=== PATIENT | female | born 1950 | race Two or more races ===

== ENCOUNTER 2024-12-28 12:46 | Observation (INO) | payer OTHER, MEDICAID, MEDICARE, SELFPAY ==
[2024-12-28] VITALS (7 sets, daily range): BP systolic 134–178; BP diastolic 59–79; PULSE 60–74; RESP 15–19; TEMP 35.2–36.7; O2SAT 97–100; BMI 21.5
--- NOTE | 2024-12-28 13:17 | XR_ITS ---
Examination: AP chest single view Technique one AP portable upright chest single view Date and time: December 28, 2024, 1323 hrs., Comparison January 31, 2022. Indications: Chest pain and weakness beginning 2 days ago. Findings: Mild enlargement cardiac contour. Mild to moderate vascular congestion. No lobar pneumonia or praveena pulmonary edema. Prominent osteopenia Impression: Mild enlargement cardiac contour. Mild to moderate vascular congestion.
--- NOTE | 2024-12-28 13:17 | EKG_ITS ---
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
--- NOTE | 2024-12-28 13:19 | PD.EDWEAK ---
ED Weakness RME/HPI General Chief complaint: Altered Mental Status Stated complaint: AMS, Low Blood Sugar Time Seen by Provider: 12/28/24 13:17 Arrival date/time: 12/28/24 12:46 Limitations: no limitations RME / HPI RME / HPI Narrative: DR. WOODS MAIN ED EVALUATION: 74-year-old female with past medical history of diabetes mellitus, on insulin, and left eye blindness presents to the Emergency Department [facility] with generalized weakness and altered. Per EMS, the patient woke up at her baseline but subsequently felt weak. Her blood glucose was found to be in the 30s. She was given 50 cc of D10 en route, after which she returned to her baseline mental status. The last time she took insulin was last night. No other complaints reported at this time. At 1643 hours, I spoke with the family, the patient?s daughter, and obtained additional information. The patient has a history of diabetes mellitus and took insulin last night without eating beforehand. She then went to sleep. This morning, she took her antihypertensive medication, lisinopril, also before eating any food. Later, when her checked on her, he found her unresponsive in bed. Related Data Home Medications ?Medication ?Instructions ?Recorded ?Confirmed insulin glargine 100 unit/mL 16 unit subcut QPM 01/30/22 01/31/22 subcutaneous cartridge metoprolol succinate 50 mg capsule 50 mg PO QDAY 01/30/22 01/31/22 sprinkle, ext. release 24 hr simvastatin 20 mg tablet 20 mg PO QPM 01/30/22 01/31/22 glipizide 5 mg tablet 5 mg PO QDAY 12/28/24 12/28/24 Previous Rx's ?Medication ?Instructions ?Recorded docusate sodium 100 mg capsule 100 mg PO BID #40 caps 02/04/22 (Colace) hydrocodone 5 mg-acetaminophen 325 1 tab PO Q8H PRN pain (scale score 02/04/22 mg tablet 7-10) #15 tabs ibuprofen 600 mg tablet 600 mg PO Q8H PRN pain (scale 02/04/22 score 4-6) #15 tabs Allergies Allergy/AdvReac Type Severity Reaction Status Date / Time No Known Allergies Allergy Verified 12/28/24 13:05 Review of Systems Review of Systems Systems Reviewed: All systems reviewed, normal except as documented Past Medical History Past Medical History NEUROLOGIC: Positive Neurological Disorders CARDIAC: Positive Cardiac Disorders, Hypercholesterolemia and Hypertension GASTROINTESTINAL: Positive Gall Bladder Disease GENITOURINARY: Positive Genitourinary Disorders and Renal Disease MUSCULOSKELETAL: Positive Musculoskeletal Disorders and Arthritis ENT: Positive Blind (L eye) ENDOCRINE: Positive Diabetes Mellitus Type 2 Surgical History SURGICAL: Positive Eye Surgery (L eye) Social History SMOKING STATUS: Never smoker SUBSTANCE USE: does not use ALCOHOL: Never ED Exam General Limitations: Present no limitations General appearance: Present alert and in no apparent distress Head Head exam: Present atraumatic, normocephalic and normal inspection Eye Eye exam: Present normal appearance, PERRL and EOMI ENT ENT exam: Present normal exam, normal oropharynx and mucous membranes moist Neck Neck exam: Present normal inspection, full ROM and trachea midline Chest Chest inspection: Present normal inspection and symmetric chest wall rise Respiratory Respiratory exam: Present normal lung sounds bilaterally Cardiovascular Cardiovascular exam: Present regular rate, normal rhythm and normal heart sounds Abdominal Exam Abdominal exam: Present soft and normal bowel sounds Extremities Exam Extremities exam: Present normal inspection and full ROM Back Exam Back exam: Present normal inspection and full ROM Neurological Exam Neurological exam: Present alert, oriented X3 and CN II-XII intact Psychiatric Psychiatric exam: Present normal affect and normal mood Skin Skin exam: Present warm, dry, intact and normal color Course Quality Measures none Orders Category Date Time Status Bedside COVID-19 Antigen Test NOW Care 12/28/24 13:17 Active EKG (ED ONLY) *Do not use* NOW Care 12/28/24 13:18 Completed Glucose [Bedside Blood Glucose] Q1HR Care 12/28/24 13:18 Active CXR [XR chest 1V] Stat Exams 12/28/24 13:17 Completed EKG (ED Only) Stat Exams 12/28/24 13:17 Draft CBC Stat Lab 12/28/24 14:28 Completed CMP [Comprehensive Metabolic Panel] Stat Lab 12/28/24 14:28 Completed INR [Prothrombin Time with INR] Stat Lab 12/28/24 14:28 Completed Influenza A & B Rapid Panel Stat Lab 12/28/24 15:55 Completed Troponin I Stat Lab 12/28/24 14:28 Completed UA, C/S IF [Urinalysis, C/S if Indicated] Stat Lab 12/28/24 15:40 Completed Urine Culture Stat Lab 12/28/24 15:40 Received cefTRIAXone/D5w 1gm IV premix [Rocephin/D5w 1gm IV Med 12/28/24 18:56 Discontinued premix] 1 gm in 50 ml IV Q12HR cefTRIAXone/D5w 1gm IV premix [Rocephin/D5w 1gm IV Med 12/28/24 18:56 Active premix] 1 gm in 50 ml IV STAT Vital Signs Vital signs: Vital Signs Temperature 95.3 F L 12/28/24 13:00 Pulse Rate 69 12/28/24 13:00 Respiratory Rate 18 12/28/24 13:00 Blood Pressure 160/59 H 12/28/24 13:00 Pulse Oximetry (%) 100 12/28/24 13:00 Oxygen Delivery Method Room Air 12/28/24 13:00 Weakness MDM Narrative MDM Narrative:: Patient is a 72-year-old female with medical history notable for diabetes is in the emergency department with concerns for acute confusion and hypoglycemia. Vital signs and exam as listed. Concern for metabolic derangement, antigenic exposure, acute infection among others. Patient arrived GCS 15, not in distress no focal deficits that were new. Patient takes insulin, states that she took it last night did not eat and then took her medications this morning. Ordered labs EKG chest x-ray. Will observe the patient and monitor her glucose in the emergency department. 1p: Patient GCS 15, not in distress, feels well no complaints 3p: Patient continues to feel well without any symptoms. Labs with evidence of normocytic anemia, hemoglobin 11.3, patient is near her baseline. No significant electrolyte abnormality. Patient GFR is 44. No transaminitis. Troponin not elevated. Urinalysis positive for nitrites leuk esterase +3 WBCs 3 squames rare bacteria concern. A tract infection will provide antibiotics. Chest x-ray with moderate vascular congestion. Patient without any lower extremity edema, breathing room air not dyspneic. EKG performed today 1608 sinus rhythm, normal intervals, nonspecific T wave changes, not a cardiac alert. Patient's glucose were monitored in the emergency department, at approximately 5 PM her glucose was in the 70s again. Patient was given food. Given patient with downtrending glucose despite eating concerned that patient sulfonylurea will continue to drop patient's blood glucose to critical levels. 6:36p consult hospital team, stated they will call back after signout. 7:07 I called nighttime hospitalist Dr. Tanner, discussed case currently excepted patient for admission I, Yolande Galvez, cecile scribing for and in the presence of Dr. Woods. Patient data External records reviewed:: [facility] previous records and EMS form Clinical information provided by:: patient and EMS Social determinants that could affect healthcare access:: none Patient has the following chronic illnesses:: Past medical history of diabetes mellitus, on insulin, and left eye blindness. How is presenting disease/condition affected by chronic disease/condition?: exacerbated by Evaluation data The following diagnostics were reviewed and interpreted by me:: lab results, radiology exam(s) and EKG tracing(s) (My interpretation: EKG performed at 1530 hours, sinus rhythm, rate 57, normal intervals, non specific T wave changes, no cardiac alert) Lab and/or radiology exams considered but not ordered:: none Interpretation Summary: See MDM narrative above. RADIOLOGY Procedure(s): XR chest 1V Accession Number(s): [id number] cc: Jamie Lares PA-C; Desmond Velázquez MD; Yany Woods MD~ Examination: AP chest single view Technique one AP portable upright chest single view Date and time: December 28, 2024, 1323 hrs., Comparison January 31, 2022. Indications: Chest pain and weakness beginning 2 days ago. Findings: Mild enlargement cardiac contour. Mild to moderate vascular congestion. No lobar pneumonia or praveena pulmonary edema. Prominent osteopenia Impression: Mild enlargement cardiac contour. Mild to moderate vascular congestion. Dictated By: Desmond Velázquez MD Medications / Prescriptions Medications or Prescriptions considered but not ordered:: none Medication administrations:: Medication Administration History Ceftriaxone Sodium/Dextrose (Rocephin/D5w 1gm Iv Premix) 1 gm in 50 mls @ 100 mls/hr IV STAT STA Stop: 12/28/24 19:25 Discontinued Medications Ceftriaxone Sodium/Dextrose (Rocephin/D5w 1gm Iv Premix) 1 gm in 50 mls @ 100 mls/hr IV Q12HR ELVIA Stop: 01/04/25 18:55 see above if any Consultations Consultation(s) initiated? (list below): Yes Consultation #1 (Physician, Specialty, Details): See MDM Diagnosis Weakness Differential Diagnosis: other (Insulin-induced hypoglycemia, medication mismanagement, and metabolic encephalopathy.) Most likely diagnosis given after review of the tests above:: Urinary tract infection, hypoglycemia Admission Indicated Admission indicated?: indicated Admission Request Was there a request for admission?: Yes Admission Attestation Admission request attestation: Discussed case with Hospitalist service regarding admission. Discussed patients ED course, exam findings, labs, and radiology results. The Hospitalist [agrees] to accept the patient for admission. Disposition Plan Disposition Plan: Admit Critical Care Time Critical Care Time Critical Care Time: Yes Total Critical Care Time (min.): 45 Attestation: Due to a high probability of clinically significant, life threatening deterioration, the patient required my highest level of preparedness to intervene emergently and I personally spent this critical care time directly and personally managing the patient. This critical care time included obtaining a history; examining the patient; pulse oximetry; ordering and review of studies; arranging urgent treatment with development of a management plan; evaluation of patient's response to treatment; frequent reassessment; and, discussions with other providers. This critical care time was performed to assess and manage the high probability of imminent, life-threatening deterioration that could result in multi-organ failure. It was exclusive of separately billable procedures and treating other patients and teaching time. Discharge Plan Prescriptions/Referrals Prescriptions/Med Rec: No Action glipizide 5 mg tablet 5 mg PO QDAY Patient Comments: TAKE 1 TABLET BY MOUTH ONCE DAILY 30 MINUTES BEFORE BREAKFAST simvastatin 20 mg Tablet 20 mg PO QPM metoprolol succinate 50 mg Capsule,Sprinkle,Er 24hr 50 mg PO QDAY insulin glargine 100 unit/mL Cartridge 16 unit SUBCUT QPM hydrocodone-acetaminophen 5-325 mg tablet 1 tab PO Q8H MDD 3 PRN (Reason: pain (scale score 7-10)) Qty: 15 0RF docusate sodium [Colace] 100 mg capsule 100 mg PO BID Qty: 40 0RF ibuprofen 600 mg tablet 600 mg PO Q8H PRN (Reason: pain (scale score 4-6)) Qty: 15 0RF Referrals: Jamie Lares PA-C [Primary Care Provider] - In 1 week Problem List Clinical Impression: Hypoglycemia, Urinary tract infection Patient/Caregiver Discharge Instructions Print Language: German
[2024-12-28 14:35] LABS: Basophils # (Auto) 0.0 Thou/mm3 (0.0-0.2); Basophils % (Auto) 0 % (0-2.5); Eosinophils # (Auto) 0.1 Thou/mm3 (0.0-0.5); Eosinophils % (Auto) 1 % (0-10); Hematocrit 34.8 % (36.0-46.0); Hemoglobin 11.3 g/dL (12.0-16.0); Immature Granulocytes Auto 0.02 Thou/mm3 (0.00-0.00); Lymphocytes # (Auto) 1.1 Thou/mm3 (1.0-4.8); Lymphocytes % (Auto) 12 % (10-50); Mean Corpuscular HGB Conc 32.5 g/dl (31.0-37.0); Mean Corpuscular Hemoglobin 30.5 pg (25.0-35.0); Mean Corpuscular Volume 94 fL (80-100); Monocytes # (Auto) 0.4 Thou/mm3 (0.0-0.8); Monocytes % (Auto) 4 % (0-12); Neutrophils # (Auto) 7.8 Thou/mm3 (1.8-7.7); Neutrophils % (Auto) 82 % (37-80); Nucleated Red Blood Cell # 0.00 Thou/mm3 (0.00-0.00); Nucleated Red Blood Cell % 0 /100 WBC (0); Platelet Count 238 Thou/mm3 (140-440); RDW Standard Deviation 45.5 fL (36.4-46.3); Red Blood Count 3.71 Miln/mm3 (4.00-5.20); White Blood Count 9.4 Thou/mm3 (3.6-11.0)
[2024-12-28 15:23] LABS: Troponin I < 0.020 ng/mL (0.0-0.045)
[2024-12-28 15:25] LABS: Alanine Aminotransferase 11 U/L (10-49); Albumin, Serum 4.6 gm/dL (3.4-4.8); Albumin/Globulin Ratio 1.7 (1.2-2.2); Alkaline Phosphatase 90 U/L (46-116); Anion Gap 8 (7-16); Aspartate Amino Transferase 31 U/L (0-34); BUN/Creatinine Ratio 18 Ratio (12-20); Bilirubin,Total 0.2 mg/dL (0.3-1.2); Blood Urea Nitrogen 23 mg/dL (9-23); Calcium 9.7 mg/dL (8.3-10.6); Calcium (Corrected) 9.7 mg/dL (8.5-10.1); Carbon Dioxide 22.6 mMol/L (20.0-31.0); Chloride 112 mMol/L (98-107); Creatinine (Component) 1.3 mg/dL (0.6-1.3); Estimated Creatinine Clearance 30.9 mL/min (>60); Globulin 2.7 gm/dL (2.3-3.5); Glucose 132 mg/dL (74-106); INR 1.0 (0.9-1.3); Osmolality,Calculated 290 (275-295); Potassium 5.1 mMol/L (3.4-5.1); Prothrombin Time 11.0 Seconds (9.0-12.2); Sodium 143 mMol/L (136-145); Total Protein 7.3 gm/dL (5.7-8.2); eGFR 44 See Note
[2024-12-28 15:48] LABS: Collection Type, Urine Clean Catch; RBC,Urine 0 /hpf (0-3)
[2024-12-28 16:02] LABS: Bacteria,Urine Rare; Bilirubin,Urine Negative (Negative); Blood,Urine Trace (Negative); Clarity,Urine Clear (Clear/Hazy); Color,Urine Lt-Yellow (Lt Yel-Yel); Glucose, Urine Negative (Negative); Ketones,Urine Negative (Negative); Leukocyte Esterase,Urine Positive (Negative); Nitrite,Urine Positive (Negative); PH,Urine 6.0 (5.0-7.0); Protein,Urine Negative (Neg - Trace); Specific Gravity,Urine 1.007 (1.001-1.035); Squamous Epithelial Cell,Urine 3 /hpf (0-5); Urobilinogen,Urine Negative mg/dL (0.0-1.0); WBC,Urine 3 /hpf (0-5)
[2024-12-28 16:03] LABS: Culture Indicated,Urine Yes
[2024-12-28 17:00] LABS: Influenza A Ag Negative; Influenza B Ag Negative
[2024-12-28] MEDS: cefTRIAXone/D5w 1gm IV premix 1 GM/50 ML BAG IV (19:44)
--- NOTE | 2024-12-28 20:05 | PD.RESHP ---
Documentation for date of: 12/28/24 [facility] History of Present Illness History of present illness: Mrs. Daniel conrad is a 72-year-old female past medical history of type 2 diabetes, HLD, hypertension, osteoporosis, who presented to the ED on 12/28/2024 with chief complaint of altered mental status. According to the daughter at bedside, patient patient's spouse went to check up during the day found her to be diaphoretic and lethargic and then became unresponsive. Per patient before started feeling well she took 20 units of insulin and went to rest, and does not recall the event until she got to the hospital. Patient patient newly returned from [place] from about 1 months ago, and her doctor prescribed gemfibrozil, glipizide for diabetes. Patient reports that she does not check her glucose regularly because eye doctor not prescribed glucometer at home. She said before she went to bed she did not eat as she did not feel hungry, then took her 20 units insulin and went to bed. Patient denied history of prior [place], stroke, seizures. She denies chest pain, shortness of breath, chills, nausea, vomiting, abdominal pain prior to becoming unresponsive. Currently denies any active complaints. ED Course: -Initial vitals were BP 162/59, pulse 69, respiratory 18, O2 sat 100% on room air. -Labs significant for hemoglobin 9.3 hematocrit 34.8, eGFR 44. UA positive for nitrite and leukocyte esterase. Per EMS glucose was 37, on admission glucose 198. -Imaging included chest x-ray that showed mild pulmonary vascular congestion. EKG showed sinus bradycardia with a rate of 57 -In the ED, patient was given ceftriaxone. Per ED phydical patient recive D10 for hypoglycemia, but there was no record of it on the system. Nurse at bedside that the patient did not recieve D10 fluids. They only gave her food. Upon arrival patient was alert and oriented x 4. -Patient was admitted for acute encephalopathy secondary to hypoglycemia. Review of Systems Review of systems otherwise negative except what is mentioned above. Past Medical History: Mentioned above Family History: Noncontributory Surgical History: Cholecystectomy Social History: Denies history of smoking, denies current alcohol use, denies recreational drug use. Patient lives in a trailer with her . Current Medications: (Source: ) Allergies: No known drug allergies Exam Vital Signs Temp Pulse Resp BP Pulse Ox O2 Del Method 97.4 F 71 19 168/79 H 100 Room Air 12/28/24 18:36 12/28/24 18:36 12/28/24 18:36 12/28/24 18:36 12/28/24 18:36 12/28/24 18:36 Narrative Exam General: Alert, no acute distress.Conversational and non-toxic appearing. Skin: Warm, dry, intact. No rash or ecchymoses. Head: Normocephalic, atraumatic. Eye: Normal conjunctiva, PERRL. Throat: Oral mucosa moist. No obvious lesions in oropharynx. Cardiovascular: Regular rate and rhythm, no murmur, +S1/S2. Respiratory: Lungs are clear to auscultation, respirations unlabored, no crackles, no wheezing. Gastrointestinal: Soft, nontender, non-distended. No guarding or rebound tenderness. Extremities: No edema, no cyanosis, no clubbing. Neuro: Alert and oriented x3.No focal deficits observed. Conversant, moving all extremities. No overt cerebellar signs/incoordination. Psychiatric: Cooperative, appropriate affect Results: Labs 12/29/24 05:28 12/29/24 05:28 Labs: Short CBC 12/28/24 Range/Units 14:28 WBC 9.4 (3.6-11.0) Thou/mm3 Hgb 11.3 L (12.0-16.0) g/dL Hct 34.8 L (36.0-46.0) % Plt Count 238 (140-440) Thou/mm3 BMP 12/28/24 14:28 Sodium 143 Potassium 5.1 Chloride 112 H Carbon Dioxide 22.6 BUN 23 Creatinine 1.3 Glucose 132 H Calcium 9.7 Cardiac Enzymes 12/28/24 Range/Units 14:28 Troponin I < 0.020 (0.0-0.045) ng/mL Liver Function 12/28/24 Range/Units 14:28 Total Bilirubin 0.2 L (0.3-1.2) mg/dL AST 31 (0-34) U/L ALT 11 (10-49) U/L Alkaline Phosphatase 90 (46-116) U/L Albumin 4.6 (3.4-4.8) gm/dL Urine 12/28/24 Range/Units 15:40 Urine Color Lt-Yellow (Lt Yel-Yel) Urine Clarity Clear (Clear/Hazy) Urine pH 6.0 (5.0-7.0) Ur Specific [place] 1.007 (1.001-1.035) Urine Protein Negative (Neg - Trace) Urine Glucose (UA) Negative (Negative) Quality Measures Quality Measures VTE prophylaxis Advance care planning discussed with:: patient and child Medications Home Medications and Allergies Home Medications ?Medication ?Instructions ?Recorded ?Confirmed ?Type metoprolol succinate 50 mg capsule 50 mg PO BID 01/30/22 12/28/24 History sprinkle, ext. release 24 hr simvastatin 20 mg tablet 20 mg PO QPM 01/30/22 12/28/24 History alendronate 70 mg tablet 70 mg PO QWEEK 12/28/24 12/28/24 History gemfibrozil 600 mg tablet 600 mg PO BID 12/28/24 12/28/24 History lisinopril 10 mg tablet 10 mg PO QDAY 12/28/24 12/28/24 History Allergies Allergy/AdvReac Type Severity Reaction Status Date / Time No Known Allergies Allergy Verified 12/28/24 13:05 Visit Medications Dextrose (Dextrose 50%-Water Inj 50 Ml Syringe) 25 ml IV Q15MIN PRN PRN Reason: BG 50-70 responsive npo pt Stop: 01/27/25 20:01 Dextrose (Dextrose 50%-Water Inj 50 Ml Syringe) 50 ml IV Q15MIN PRN PRN Reason: BG <50 OR BG <70 & pt unresponsive Stop: 01/27/25 20:01 Glucagon (Glucagon Inj 1 Mg Vial) 1 mg IM Q15MIN PRN PRN Reason: BG <70, and no IV access Insulin Human Lispro (Insulin Lispro (Admelog) 1 Unit/0.01 Ml Unit) 0 unit SC Q3HR ELVIA; Protocol Stop: 01/27/25 20:59 Discontinued Medications Ceftriaxone Sodium/Dextrose (Rocephin/D5w 1gm Iv Premix) 1 gm in 50 mls @ 100 mls/hr IV Q12HR ELVIA Stop: 01/04/25 18:55 Ceftriaxone Sodium/Dextrose (Rocephin/D5w 1gm Iv Premix) 1 gm in 50 mls @ 100 mls/hr IV STAT STA Stop: 12/28/24 19:25 Last Admin: 12/28/24 19:44 Dose: 100 mls/hr Assessment & Plan Plan Mrs. Daniel conrad is a 72-year-old female past medical history of type 2 diabetes, HLD, hypertension, osteoporosis, who presented to the ED on 12/28/2024 with chief complaint of altered mental status. Admitted for acute encephalopathy and recurrent hypoglycemia. #Acute Encephalopathy 2/2 #Hypoglycemia #Insulin-dependent type 2 diabetes mellitus DDx: Metabolic vs infectious vs trauma Upon arrival patient mentation was poor likely due to hypoglycemia. Per ED doctor patient received D10 at 250 mL, and food. Upon evaluation patient mentation has improved. She is alert and oriented x 3. Encephalopathy likely due to metabolic derangement- Hypoglycemia as patient does not check her glucose regularly and she took her insulin without knowing the blood glucose level. Per EMS glucose was 37, on admission glucose is 198. Less likely infectious patient has no fever, chills or WBCs. Low suspicion for trauma patient and family at bedside reports no recent fall. Per pt her Doctor in [place] prescribed GLIPIZIDE 5mg qday. Glucose check Q3Hr switched to Q6h after BG normalizes 75>198>244>182>140 - Started insulin sliding-scale - Glucose check Q6hr - A1c ordered,pending - Continue to monitor mentation - Pending med recc #Asymptomatic pyuria Patient denies dysuria, frequency and urgency, although UA positive for nitrite and leukocyte esterase. Pt receive ceftriaxone 1gm in the ED. - No intervention needed at this time - Monitor for WBC and Fever #Primary hypertension Patient on medication metoprolol titrate 50 mg daily and lisinopril 10 mg daily - Resume home lisinopril 10 mg - Started metoprolol titrate 25 mg p.o. twice daily # Hyperlipidemia Patient home medication is Simvastatin 20mg - Started atorvastatin 40mg PO #Osteoporosis Patient on home alendronate 70mg once/week - No need to resume home as patient takes it once per week Hospital management: Lines: peripheral IV Diet: Diabetic carb consistent DVT prophylaxis: Heparin SC Disposition: Obs/ med-tele for management of hypoglycemia CODE STATUS: Full code Patient seen and assessed under supervision of attending physician Dr.Alhalaibeh Gisel Taylor MD PGY-1, Internal Medicine Please note: this document was transcribed using voice recognition technology; minor inaccuracies may be present. Attending Provider Attestation/Addendum After examination of the patient and review of the clinical data I feel that this patient needs admission to the hospital for further treatment/evaluation. Plan of care discussed with patient and is in agreement. I Sheree Tanner MD, attest that I was physically present for crowley portions of evaluation, and examined patient, labs and imagings and plan of care were discussed with IM residents team, and I agree with the findings and plans documented above.
[2024-12-28] MEDS: INSULIN LISPRO (AdmeLOG) 1 UNIT/0.01 ML UNIT SC (23:09)
[2024-12-29] VITALS (8 sets, daily range): BP systolic 121–149; BP diastolic 60–70; PULSE 63–79; RESP 16–18; TEMP 36.1–36.4; O2SAT 97–98
--- NOTE | 2024-12-29 00:39 | PC.NURSE ---
MD Taylor made aware of blood sugar of 140, per MD will change blood sugar monitoring to ACHS.
--- NOTE | 2024-12-29 05:41 | PC.NURSE ---
Pt BS is 60, pt is awake and oriented, pudding and jello given but jae wants jello to eat, recheck her BS after 15 mins and went up to 71, MD Holcomb made aware no new order made at this time. Will recheck BS after another 15 mins.
[2024-12-29 06:24] LABS: Basophils # (Auto) 0.0 Thou/mm3 (0.0-0.2); Basophils % (Auto) 0 % (0-2.5); Eosinophils # (Auto) 0.3 Thou/mm3 (0.0-0.5); Eosinophils % (Auto) 4 % (0-10); Hematocrit 34.4 % (36.0-46.0); Hemoglobin 11.3 g/dL (12.0-16.0); Immature Granulocytes Auto 0.02 Thou/mm3 (0.00-0.00); Lymphocytes # (Auto) 3.2 Thou/mm3 (1.0-4.8); Lymphocytes % (Auto) 44 % (10-50); Mean Corpuscular HGB Conc 32.8 g/dl (31.0-37.0); Mean Corpuscular Hemoglobin 31.0 pg (25.0-35.0); Mean Corpuscular Volume 95 fL (80-100); Monocytes # (Auto) 0.5 Thou/mm3 (0.0-0.8); Monocytes % (Auto) 8 % (0-12); Neutrophils # (Auto) 3.2 Thou/mm3 (1.8-7.7); Neutrophils % (Auto) 44 % (37-80); Nucleated Red Blood Cell # 0.00 Thou/mm3 (0.00-0.00); Nucleated Red Blood Cell % 0 /100 WBC (0); Platelet Count 236 Thou/mm3 (140-440); RDW Standard Deviation 45.6 fL (36.4-46.3); Red Blood Count 3.64 Miln/mm3 (4.00-5.20); White Blood Count 7.2 Thou/mm3 (3.6-11.0)
[2024-12-29 06:39] LABS: Anion Gap 11 (7-16); BUN/Creatinine Ratio 17 Ratio (12-20); Blood Urea Nitrogen 20 mg/dL (9-23); Calcium 10.0 mg/dL (8.3-10.6); Carbon Dioxide 22.0 mMol/L (20.0-31.0); Chloride 113 mMol/L (98-107); Creatinine (Component) 1.2 mg/dL (0.6-1.3); Estimated Creatinine Clearance 33.5 mL/min (>60); Glucose 59 mg/dL (74-106); Magnesium 2.0 mg/dL (1.6-2.6); Osmolality,Calculated 291 (275-295); Phosphorous 3.5 mg/dL (2.4-5.1); Potassium 5.1 mMol/L (3.4-5.1); Sodium 146 mMol/L (136-145); eGFR 48 See Note
[2024-12-29 06:40] LABS: Glucose Estimated Average 246 mg/dL (80-131); Hemoglobin A1C 10.2 % Hgb (4.8-6.0)
[2024-12-29] MEDS: INSULIN LISPRO (AdmeLOG) 1 UNIT/0.01 ML UNIT SC ×2 (07:58→12:00)
--- NOTE | 2024-12-29 08:38 | PD.RESPRO ---
Documentation for date of: 12/29/24 Subjective Subjective Interval history: In short, this is a 74 yof with a h/o IDDM, HLD, HTN, Osteoporosis who presented to the ED on 12/28 with AMS, found to be hypoglycemic by EMS, Admitted Exam Vital Signs Temp Pulse Resp BP Pulse Ox O2 Del Method 97.2 F 72 16 123/65 97 Room Air 12/29/24 08:00 12/29/24 08:00 12/29/24 08:00 12/29/24 08:00 12/29/24 08:00 12/29/24 08:00 Objective Labs 12/29/24 05:28 12/29/24 05:28 Labs: Laboratory Results - last 24 hr 12/28/24 12/28/24 12/28/24 14:28 15:40 15:55 WBC 9.4 RBC 3.71 L Hgb 11.3 L Hct 34.8 L MCV 94 MCH 30.5 MCHC 32.5 RDW Std Deviation 45.5 Plt Count 238 Neut % (Auto) 82 H Lymph % (Auto) 12 [place] % (Auto) 4 Eos % (Auto) 1 Baso % (Auto) 0 Neut # (Auto) 7.8 H Lymph # (Auto) 1.1 [place] # (Auto) 0.4 Eos # (Auto) 0.1 Baso # (Auto) 0.0 Immature Gran # (Auto) 0.02 H Absolute Nucleated RBC 0.00 Immature Gran % 0 Nucleated RBC % 0 PT 11.0 INR 1.0 Sodium 143 Potassium 5.1 Chloride 112 H Carbon Dioxide 22.6 Anion Gap 8 BUN 23 Creatinine 1.3 Estim Creat Clear Calc 30.9 L eGFR 44 L BUN/Creatinine Ratio [address] Glu mg/dL Hemoglobin A1c Calculated Osmolality 290 Calcium 9.7 Corrected Calcium 9.7 Phosphorus Magnesium Total Bilirubin 0.2 L AST 31 ALT 11 Alkaline Phosphatase 90 Troponin I < 0.020 Total Protein 7.3 Albumin 4.6 Globulin 2.7 Albumin/Globulin Ratio 1.7 Ur Collection Type Clean Catch Urine Color Lt-Yellow Urine Clarity Clear Urine pH 6.0 Ur Specific [place] 1.007 Urine Protein Negative Urine Glucose (UA) Negative Urine Ketones Negative Urine Blood Trace Urine Nitrite Positive Urine Bilirubin Negative Urine Urobilinogen (Auto) Negative Ur Leukocyte Esterase Positive Urine RBC 0 Urine WBC 3 Ur Squamous Epith Cells 3 Urine Bacteria Rare Ur Culture Indicated? Yes Influenza A (Rapid) Negative Influenza B (Rapid) Negative 12/29/24 05:28 WBC 7.2 RBC 3.64 L Hgb 11.3 L Hct 34.4 L MCV 95 MCH 31.0 MCHC 32.8 RDW Std Deviation 45.6 Plt Count 236 Neut % (Auto) 44 Lymph % (Auto) 44 [place] % (Auto) 8 Eos % (Auto) 4 Baso % (Auto) 0 Neut # (Auto) 3.2 Lymph # (Auto) 3.2 [place] # (Auto) 0.5 Eos # (Auto) 0.3 Baso # (Auto) 0.0 Immature Gran # (Auto) 0.02 H Absolute Nucleated RBC 0.00 Immature Gran % 0 Nucleated RBC % 0 PT INR Sodium 146 H Potassium 5.1 Chloride 113 H Carbon Dioxide 22.0 Anion Gap 11 BUN 20 Creatinine 1.2 Estim Creat Clear Calc 33.5 L eGFR 48 L BUN/Creatinine Ratio 17 Glucose [address] Glu mg/dL 246 H Hemoglobin A1c 10.2 H Calculated Osmolality 291 Calcium 10.0 Corrected Calcium Phosphorus 3.5 Magnesium 2.0 Total Bilirubin AST ALT Alkaline Phosphatase Troponin I Total Protein Albumin Globulin Albumin/Globulin Ratio Ur Collection Type Urine Color Urine Clarity Urine pH Ur Specific [place] Urine Protein Urine Glucose (UA) Urine Ketones Urine Blood Urine Nitrite Urine Bilirubin Urine Urobilinogen (Auto) Ur Leukocyte Esterase Urine RBC Urine WBC Ur Squamous Epith Cells Urine Bacteria Ur Culture Indicated? Influenza A (Rapid) Influenza B (Rapid) Quality Measures Quality Measures none Assessment & Plan Assessment Current Active Medications: Generic Name Dose Route Start Last Admin Trade Name Yomaira PRN Reason Stop Dose Admin Atorvastatin Calcium 40 mg 12/29/24 21:00 Atorvastatin Calcium 20 Mg Tablet PO 01/28/25 20:59 HS ELVIA Dextrose 25 ml 12/28/24 20:02 Dextrose 50%-Water Inj 50 Ml Syringe IV 01/27/25 20:01 Q15MIN PRN BG 50-70 responsive npo pt Dextrose 50 ml 12/28/24 20:02 Dextrose 50%-Water Inj 50 Ml Syringe IV 01/27/25 20:01 Q15MIN PRN BG <50 OR BG <70 & pt unresponsive Glucagon 1 mg 12/28/24 20:02 Glucagon Inj 1 Mg Vial IM Q15MIN PRN BG <70, and no IV access Heparin Sodium (Porcine) 5,000 unit 12/29/24 09:00 Heparin Sod Inj 5000 Unit/Ml Vial SC 01/12/25 08:59 BID [facility] Insulin Human Lispro 0 unit 12/29/24 07:45 12/29/24 07:58 Insulin Lispro (Admelog) 1 Unit/0.01 Ml Unit SC 01/28/25 07:44 3 unit ACHS [facility] Administration Protocol Lisinopril 10 mg 12/29/24 09:00 Lisinopril 2.5 Mg Tablet PO 01/28/25 08:59 QDAY [facility] Metoprolol Tartrate 25 mg 12/29/24 09:00 Metoprolol Tartrate 25 Mg Tablet PO 01/28/25 08:59 BID [facility]
[2024-12-29] MEDS: HEPARIN SOD INJ 5000 UNIT/ML VIAL SC (09:24)
[2024-12-29] MEDS: METOPROLOL TARTRATE 25 MG TABLET PO (09:24)
--- NOTE | 2024-12-29 10:02 | PC.SS ---
Patient is a 74 year old female presenting to the hospital for hypoglycemia. TIME LOCK EXPERT met with patient and patient daughter and at bedside. TIME LOCK EXPERT explained role and reason for visit. Patient gave consent for guest to be present in the room. Patient confirmed mailing address but was unable to remember her current address, was present in the room and was unable to remember address. Patient?s phone number is [phone]. Patient stated that in case she is unable to make medical decisions on her own she would like Nely Peraza to make them, her contact is [phone]. Patient stated that in case [place] does not answer SS can also contact Fabby Preaza PH: [phone]. Patient stated that she has a walker but does not use it only for long distance walking. Patient stated she is able to complete ADLS independently. Patient stated she is unemployed, has diabetes, her PCP is Dr. Lares at [facility], last visit on 12/20/24, pharmacy is [facility]. Patient stated that once medically clear she would like to return home and her will provide transportation. Decision maker: daughter, Nely Peraza, PCP: Dr. Lares
--- NOTE | 2024-12-29 13:05 | ESDS_ITS ---
<Statement entered by María Butcher DO - 12/30/24 13:50> I, María Butcher DO, attest that I was physically present for the [place] portions of the service and evaluated the patient with the resident and I reviewed and discussed the case with the resident and agree with the resident's findings and plans of care as documented above Planned Discharge Date 12/29/24 DS: Providers Provider Date of admission: 12/28/24 19:48 Primary care physician: Jamie Lares PA-C Admitting Provider: Sheree Tanner MD Attending Provider on Admission: Sheree Tanner MD Consults: 12/29/24 10:05 Referral Registered Dietitian Routine Comment: Diabetes education Attending Provider on DC: María Butcher DO Discharging Provider: María Butcher DO Anticipated date of discharge: 12/29/24 DS: Diagnosis Problem List Completed Was Problem List Reviewed/Reconciled?: Yes Hospital Course Hospital Course Hospital course: In short, this is a 74 yof with a h/o IDDM, HLD, HTN, Osteoporosis who presented to the ED on 12/28 with AMS, found to be hypoglycemic by EMS, and admitted for acute encephalopathy secondary to hypoglycemia. Patient patient newly returned from [place] from about 1 months ago, and her doctor prescribed gemfibrozil, glipizide for diabetes. She also takes insulin glargine 10 U. Patient reports that she does not check her glucose regularly because eye doctor not prescribed glucometer at home, she also reports eating small meals or skipping meals if not hungry. In the ED, she was given food and appeared to improve in her mentation. During her hospital course, she had a couple episodes where blood sugars became low around 70 but were responsive with juice. The following day, she was at her baseline, blood sugars had stabilized, and she was counseled on her medications/eating habits that may have precipated this event. She was medically cleared and subsequently discharged in stable condition. Recommendations: Stop taking glipizide as it may be contributing to your hypoglycemia. Decrease your long acting daily insulin from 20 to 10 units. Check glucose daily. Your goal fasting blood glucose is 70-130. Start taking Januvia 50mg daily. Repeat labs with your PCP in 1-2 weeks to adjust this dose as needed. Resume other previous medications. If you don't have a PCP, make an appointment with the [facility] at [phone]. Discharge Diagnoses: #Acute Encephalopathy 2/2 #Hypoglycemia #Insulin-dependent type 2 diabetes mellitus #Asymptomatic pyuria #Primary hypertension #Hyperlipidemia #Osteoporosis Patient's plan and care discussed with my attending, Dr. Hadley Aguayo, DO PGY-1 ([facility] Resident) Time Spent with Patient Time attestation: Total time spent providing and/or coordinating discharge services: Time spent: Greater than 30 minutes Exam Vital Signs Temp Pulse Resp BP Pulse Ox O2 Del Method 97.5 F 68 18 121/64 98 Room Air 12/29/24 11:47 12/29/24 11:47 12/29/24 11:47 12/29/24 11:47 12/29/24 11:47 12/29/24 11:47 Narrative Exam General: Elderly cape verdean speaking patient, laying in bed, conversational, no acute distress, HEENT: Mucosa moist. Pupils are equal Cardiovascular: Normal S1 and S2. Regular rate and rhythm. No murmur appreciated Respiratory: Clear to auscultation bilaterally without wheezes or crackles. Abdomen: Soft, nontender, not distended, Skin: Dry, no rashes or bruising Musculoskeletal: No gross injuries. Able to move all 4 extremities. Non edematous lower extremities. Neuro: Alert with no focal neuro deficits. Psych: Appropriate affect and mood Discharge Plan Plan Patient Disposition: HOME (Self Care) Patient condition on transfer: Stable Prescriptions/Referrals Prescriptions/Med Rec: New insulin glargine 100 unit/mL (3 mL) insulin pen 10 unit subcut QPM 30 Days Qty: 3 3RF (DME) lancets Misc See Rx Instructions .Route Qty: 200 0RF Rx Instructions: As directed (DME) pen needle, diabetic, safety 29 gauge x 1/2 needle See Rx Instructions .Route Qty: 100 1RF Rx Instructions: As directed Januvia 50 mg tablet 50 mg PO QDAY Qty: 30 0RF (DME) FreeStyle Benjamin 3 Plus Sensor Device See Rx Instructions .Route Qty: 1 2RF Rx Instructions: As directed (DME) FreeStyle Benjamin 3 [place] Misc See Rx Instructions .Route Qty: 1 2RF Rx Instructions: As directed (DME) blood-glucose meter Misc See Rx Instructions .Route Qty: 1 1RF Rx Instructions: As directed Continued gemfibrozil 600 mg tablet 600 mg PO BID lisinopril 10 mg tablet 10 mg PO QDAY Patient Comments: TAKE 1 TABLET BY MOUTH ONCE DAILY alendronate 70 mg tablet 70 mg PO QWEEK Patient Comments: TAKE 1 TABLET BY MOUTH ONCE A WEEK 30 MINUTES BEFORE THE FIRST FOOD, BEVERAGE OR MEDICINE OF THE DAY WITH PLAIN WATER simvastatin 20 mg Tablet 20 mg PO QPM metoprolol succinate 50 mg Capsule,Sprinkle,Er 24hr 50 mg PO BID Discontinued glipizide 5 mg tablet 5 mg PO QDAY Patient Comments: TAKE 1 TABLET BY MOUTH ONCE DAILY 30 MINUTES BEFORE BREAKFAST insulin degludec 100 unit/mL (3 mL) insulin pen 20 unit SUBCUT QPM Patient Comments: INJECT 32 UNITS SUBCUTANEOUSLY ONCE DAILY DIRECTED IN THE EVENING Referrals: Jamie Lares PA-C [Primary Care Provider] Patient/Caregiver Discharge Instructions Other Discharge Activity Instructions:: Stop taking glipizide as it may be contributing to your hypoglycemia. Decrease your long acting daily insulin from 20 to 10 units. Check glucose daily. Your goal fasting blood glucose is 70-130. Start taking Januvia 50mg daily. Repeat labs with your PCP in 1-2 weeks to adjust this dose as needed. Resume other previous medications. If you don't have a PCP, make an appointment with the [facility] at [phone]. Deje de jaiden glipizida, ya que podr?a estar contribuyendo a castillo hipoglucemia. Disminuya castillo dosis diaria de insulina de acci?n prolongada de 20 a 10 unidades. Controle castillo glucosa diariamente. Castillo nivel ideal de glucosa en ayunas es de 70 a 130. Comience a jaiden Januvia 50 mg al d?a. Repita los an?lisis con castillo m?dico de cabecera en 1 o 2 semanas para ajustar la dosis seg?n sea necesario. Reanude mendy medicamentos anteriores. Si no tiene m?dico de cabecera, programe karen melo con el [facility]?palomo al [phone]. Print Language: Korean Stand Alone Forms: [employer]mber Award Info., Patient Portal Info Letter, Work/Release Restrictions Discharge Order Discharge Orders: Discharge (Routine); Ordered 12/29/24 Ordered By: María Butcher Quality Discharge Quality Measures VTE prophylaxis
== END 2024-12-29 15:52 | disposition home or self-care (01) ==
LOC: SERX 14:38 → SERHOLD 20:10 → S3NX 22:43
PROVIDERS: Admitting Provider Student in an Organized Health Care Education/Training Program; Emergency Provider Emergency Medicine; PCP Physician Assistant; Visit Provider Student in an Organized Health Care Education/Training Program
DX: E11.649 Type 2 diabetes mellitus with hypoglycemia without coma (principal); G93.40 Encephalopathy, unspecified; E78.5 Hyperlipidemia, unspecified; M81.0 Age-related osteoporosis without current pathological fracture; I10 Essential (primary) hypertension
CPT/HCPCS: 36415; 71045; 80048; 80053; 81001; 83036; 83735; 84100; 84484; 85025; 85610; 87077; 87086; 87186; 87502; 87811; 93005; 96372; 99284; G0378; J0696; J1644; J1815; A9270

== ENCOUNTER 2025-01-23 14:27 | Inpatient (IN) | payer OTHER, MEDICAID, MEDICARE, SELFPAY ==
[2025-01-23] VITALS (17 sets, daily range): BP systolic 81–134; BP diastolic 36–88; PULSE 70–103; RESP 14–29; TEMP 36.5–36.9; O2SAT 95–100
--- NOTE | 2025-01-23 15:24 | PC.NURSE ---
FSBS check reading HI , Provider aware.
--- NOTE | 2025-01-23 15:25 | PC.NURSE ---
Pt. BS read HIGH.
[2025-01-23] MEDS: SODIUM CHLORIDE 0.9% 1000 ML 1,000 ML 999 ML IV ×2 (15:33→16:22)
[2025-01-23 15:39] LABS: Basophils # (Auto) 0.0 Thou/mm3 (0.0-0.2); Basophils % (Auto) 0 % (0-2.5); Eosinophils # (Auto) 0.0 Thou/mm3 (0.0-0.5); Eosinophils % (Auto) 0 % (0-10); Hematocrit 37.2 % (36.0-46.0); Hemoglobin 11.1 g/dL (12.0-16.0); Immature Granulocytes Auto 0.02 Thou/mm3 (0.00-0.00); Lymphocytes # (Auto) 0.6 Thou/mm3 (1.0-4.8); Lymphocytes % (Auto) 5 % (10-50); Mean Corpuscular HGB Conc 29.8 g/dl (31.0-37.0); Mean Corpuscular Hemoglobin 30.2 pg (25.0-35.0); Mean Corpuscular Volume 101 fL (80-100); Monocytes # (Auto) 0.6 Thou/mm3 (0.0-0.8); Monocytes % (Auto) 5 % (0-12); Neutrophils # (Auto) 9.5 Thou/mm3 (1.8-7.7); Neutrophils % (Auto) 89 % (37-80); Nucleated Red Blood Cell # 0.00 Thou/mm3 (0.00-0.00); Nucleated Red Blood Cell % 0 /100 WBC (0); Platelet Count 314 Thou/mm3 (140-440); RDW Standard Deviation 50.3 fL (36.4-46.3); Red Blood Count 3.68 Miln/mm3 (4.00-5.20); White Blood Count 10.7 Thou/mm3 (3.6-11.0)
[2025-01-23 16:20] LABS: Alanine Aminotransferase 18 U/L (10-49); Albumin, Serum 4.5 gm/dL (3.4-4.8); Albumin/Globulin Ratio 1.8 (1.2-2.2); Alkaline Phosphatase 233 U/L (46-116); Anion Gap 17 (7-16); Aspartate Amino Transferase 22 U/L (0-34); BUN/Creatinine Ratio 25 Ratio (12-20); Bilirubin,Total 0.2 mg/dL (0.3-1.2); Blood Urea Nitrogen 94 mg/dL (9-23); Calcium 8.6 mg/dL (8.3-10.6); Calcium (Corrected) 8.6 mg/dL (8.5-10.1); Carbon Dioxide 21.4 mMol/L (20.0-31.0); Chloride 98 mMol/L (98-107); Creatinine (Component) 3.8 mg/dL (0.6-1.3); Globulin 2.5 gm/dL (2.3-3.5); Osmolality,Calculated 379 (275-295); Sodium 136 mMol/L (136-145); Total Protein 7.0 gm/dL (5.7-8.2); eGFR 12 See Note
[2025-01-23 16:22] LABS: Glucose 1528 mg/dL (74-106); Potassium 6.6 mMol/L (3.4-5.1)
--- NOTE | 2025-01-23 16:25 | EKG_ITS ---
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
[2025-01-23] MEDS: ALBUTEROL/IPRATROPIUM (Duoneb) RT SOL 3 ML NEBU INH (17:05)
[2025-01-23 17:31] LABS: Base Excess, Venous -12 (-3-3); Lactate (Lactic Acid) 2.9 mMol/L (0.4-2.0); O2 Saturation, Venous 99 % (96-97); PCO2, Venous 37 mmHg (36-56); PO2, Venous 137 mmHg (15-58); pH, Venous 7.22 (7.33-7.66)
--- NOTE | 2025-01-23 17:37 | XR_ITS ---
Examination: CT brain head without contrast. 2-D sagittal coronal reconstructions Date and time of exam: January 23, 2025, 1943 hours INDICATIONS: Nausea vomiting head pain today CTDI: vol (mGy): 46.2 DLP: (mGycm): 922 Technique: Multiple CT axial sections of the brain have been obtained, 5 mm slice thickness. Contrast has not been administered. 2-D sagittal, coronal reconstructions have been obtained Low dose protocols were performed. One or more of the following dose reduction techniques were used; automated exposure control, adjustment of the mA and/or KV according to patient size, use of iterative reconstruction technique. Findings: No significant ventricular enlargement. Intra-axial or extra-axial hemorrhage density is not seen. No mass effect or midline shift Basal cisterns are not remarkable. Fourth ventricle is midline. Cranial vault intact. Impression: Negative for acute hemorrhage, mass effect or midline shift
--- NOTE | 2025-01-23 17:58 | EDNOTE_ITS ---
ED Weakness RME/HPI General Chief complaint: Weakness Stated complaint: weakness not eating for 3 days Time Seen by Provider: 01/23/25 14:56 Source: patient and family Arrival date/time: 01/23/25 14:27 Mode of arrival: ambulatory Limitations: no limitations RME / HPI Complaint: generalized weakness Onset (ago): week(s) (1) Duration: intermittent Location: generalized Migration: none Severity: mild Associated symptoms: confusion, loss of appetite and nausea/vomiting RME / HPI Narrative: 74-year-old female with history of diabetes, hypertension, high cholesterol, coronary artery disease, sepsis in the past, coming in with difficulty swallowing and refusing to eat over the last 1 week. Her daughter states for the last 4 days she just does not want a get up. She does not have focal weakness but is generally weak. She wants to sleep all the time. Today she felt her blood pressure was low. Otherwise no urinary complaints, abdominal pain, chest pain, shortness of breath, cough, or syncope. No palpitations noted. No blood in her stool. No sick contacts. Related Data Home Medications ?Medication ?Instructions ?Recorded ?Confirmed simvastatin 20 mg tablet 20 mg PO QPM 01/30/22 lisinopril 10 mg tablet 10 mg PO QDAY 12/28/2401/23 empagliflozin 12.5 mg-metformin 1 tab PO BID 01/23/25 01/23/25 500 mg tablet (Synjardy) hydroxyzine pamoate 25 mg capsule 25 mg PO DAILY PRN i tching 01/23/25 01/23/25 metoprolol tartrate 50 mg tablet 50 mg PO Q12H 5 01/23/25 ondansetron 4 mg disintegrating 4 mg PO Q12H PRN nause a and 01/23/25 01/23/25 tablet vomiting pioglitazone 30 mg tablet 30 mg PO DAILY 01/23/2501/02 lancets 33 gauge (OneTouch Delica 01/24/25 01/24/25 Plus Lancet) pen needle, diabetic 32 gauge x 01/24/25 01/24/25 (Mary 2nd Gen Pen Needle) vitamin B complex-vitamin C-folic 1 tab PO QDAY 01/24/25 acid 0.8 mg tablet (Greta-Jack) Previous Rx's ?Medication ?Instructions ?Recorded blood-glucose meter #1 ea 12/29/24 blood-glucose sensor (FreeStyle #1 ea 12/29/24 Benjamin 3 Plus Sensor device) blood-glucose,grinder set up operator external,cont #1 12/29/24 (FreeStyle Benjamin 3 [place]) lancets #200 ea 12/29/24 sitagliptin phosphate 50 mg tablet 50 mg PO QDAY 1 mon #30 tabs 02/13/25 (Januvia) insulin glargine 100 unit/mL (3 10 unit (0.1 mL) subcu t QAM 1 02/15/25 mL) subcutaneous pen (Lantus month #3 mL Solostar U-100 Insulin) insulin lispro 100 unit/mL 1 sliding scale dose subcut 02/15/25 subcutaneous solution (Admelog USEASDIRECTD 1 month #1 0 mL U-100 Insulin lispro) Allergies Allergy/AdvReac Type Severity Reaction Status Date / Time No Known Allergies Allergy Verified 12/28/24 13:05 Review of Systems Review of Systems Systems Reviewed: All systems reviewed, normal except as documented Constitutional Constitutional: Reports system reviewed and no additional complaints, except as documented and Denies fever(s) Eyes Eyes: Reports system reviewed and no additional complaints, except as documented ENT Ears, Nose, Mouth, and Throat: Reports system reviewed and no additional complaints, except as documented Cardiovascular Cardiovascular: Reports system reviewed and no additional complaints, except as documented, Denies chest pain and Reports dyspnea Respiratory Respiratory: Reports system reviewed and no additional complaints, except as documented, Reports dyspnea and Denies wheezing Musculoskeletal Musculoskeletal: Reports system reviewed and no additional complaints, except as documented and Denies arthralgias Integumentary/Breasts Skin/Breast: Reports system reviewed and no additional complaints, except as documented and Denies rash Psychiatric Psychiatric: Reports system reviewed and no additional complaints, except as documented Allergic/Immunologic Allergic/Immunologic: Denies wheezing Past Medical History Past Medical History NEUROLOGIC: Positive Neurological Disorders; Negative Seizures CARDIAC: Positive Cardiac Disorders, Hypercholesterolemia and Hypertension; Negative Congestive Heart Failure RESPIRATORY: Negative Chronic Obstructive Pulmonary Disease (COPD) or Asthma GASTROINTESTINAL: Positive Gall Bladder Disease GENITOURINARY: Positive Genitourinary Disorders and Renal Disease MUSCULOSKELETAL: Positive Musculoskeletal Disorders and Arthritis ENT: Positive Blind ENDOCRINE: Positive Diabetes Mellitus Type 2; Negative Diabetes Mellitus Type 1 HEMATOLOGIC: Negative Sickle Cell Disease OTHER HISTORY: Negative Blood Transfusions, Anesthesia Reactions or Cancer Surgical History SURGICAL: Positive Eye Surgery Social History SMOKING STATUS: Never smoker SUBSTANCE USE: does not use ED Exam Narrative Physical exam: Patient generally appears weak, lying in the bed. Responsive to voice, can answer questions. No facial droop. Decreased skin turgor. Normal cap refill General Limitations: Present no limitations General appearance: Present alert and in no apparent distress; Absent appears intoxicated Head Head exam: Present atraumatic Eye Eye exam: Present normal appearance, PERRL and EOMI ENT ENT exam: Present normal exam, normal oropharynx and mucous membranes dry Neck Neck exam: Present normal inspection, full ROM and trachea midline Chest Chest inspection: Present normal inspection and symmetric chest wall rise Respiratory Respiratory exam: Present normal lung sounds bilaterally Cardiovascular Cardiovascular exam: Present regular rate, normal rhythm and normal heart sounds Abdominal Exam Abdominal exam: Present soft and normal bowel sounds; Absent guarding, rebound or rigidity Rectal Exam Rectal exam: Present deferred Extremities Exam Extremities exam: Present normal inspection and full ROM Back Exam Back exam: Present normal inspection and full ROM Neurological Exam Neurological exam: Present alert, oriented X3 and CN II-XII intact Psychiatric Psychiatric exam: Present normal affect and normal mood Skin Skin exam: Present warm, dry, intact and normal color Course Course Course Narrative: Patient seen in E and immediately placed in all 4 unfortunately there is no bed in the main ED however IV fluids are started. Quality Measures none Orders Category Date Time Status Bedside Blood Glucose Q2HX3 Care 01/23/25 16:25 Completed Bedside Blood Glucose STAT Care 01/23/25 17:37 Completed Gum Machine Filler STAT Care 01/23/25 17:37 Completed DKA Protocol QSHIFT Care 01/23/25 17:37 Completed EKG (ED ONLY) *Do not use* NOW Care 01/23/25 16:25 Completed Brunson [Urinary Catheter] QS Care 01/23/25 21:09 Completed Insert IV STAT Care 01/23/25 17:37 Completed Intake and Output Routine Care 01/23/25 17:37 Ordered Notify provider NEEDED Care 01/23/25 17:[address] head/brain wo con Stat Exams 01/23/25 17:37 Completed CXRP [XR chest 1V portable] Stat Exams 01/23/25 19:11 Completed EKG (ED Only) Stat Exams 01/23/25 16:25 Draft BMP [Basic Metabolic Panel] Stat Lab 01/23/25 20:14 Completed Blood Culture (Lab) Stat Lab 01/23/25 17:13 Completed CBC Stat Lab 01/23/25 15:20 Completed CMP [Comprehensive Metabolic Panel] Stat Lab 01/23/25 15:20 Completed Ketone [Beta Hydroxybutyrate] Stat Lab 01/23/25 20:14 Completed Lactic Acid [Lactate (Lactic Acid)] Stat Lab 01/23/25 17:13 Completed Lactic Acid, 3 HR Stat Lab 01/23/25 20:14 Completed Mag [Magnesium] Stat Lab 01/23/25 15:20 Completed Phosphorous Stat Lab 01/23/25 15:20 Completed Urinalysis, C/S if Indicated Stat Lab 01/23/25 18:17 Completed VBG [Venous Blood Gas] Stat Lab 01/23/25 17:13 Completed Albuterol/Ipratr Rt Radha [Duoneb Rt Radha] Med 01/23/25 16:25 Discontinued 3 ml INH X1 ONE Calcium Chloride 10% Abboject Med 01/23/25 16:25 Discontinued 10 ml IV X1 ONE Dextrose 50% Syr [D50w Syringe Abboject] Med 01/23/25 16:26 Discontinued 50 ml IVP X1 ONE Insulin Regular Med 01/23/25 16:25 Discontinued 10 unit IV X1 ONE Piper/Tazo 3.375 gm Premix [Zosyn] Med 01/23/25 21:07 Discontinued 3.375 gm in 50 ml IV X1 Pre-Mixed [Pre-mixed Bag] 1 bag Med 01/23/25 17:37 Discontinued Insulin Reg 100 Units/100 ml [Myxredlin] 100 unit IV 0.1 unit/kg/hr Sod Polystyrene Sulfon Susp [Kayexalate Susp] Med 01/23/25 16:25 Discontinued 30 gm PO X1 ONE Sodium Chloride 0.9% 1000 ml [Ns] 1,000 ml Med 01/23/25 14:58 Discontinued IV 999 mls/hr Sodium Chloride 0.9% 1000 ml [Ns] 1,000 ml Med 01/23/25 16:17 Discontinued IV 999 mls/hr Sodium Chloride 0.9% 1000 ml [Ns] 1,000 ml Med 01/23/25 21:07 Discontinued IV 999 mls/hr Vancomycin Pharmacy to Dose Med 01/23/25 21:08 Discontinued 1 each IV QDAY ONE Vital Signs Vital signs: Vital Signs Temperature 97.7 F 01/23/25 14:43 Pulse Rate 92 01/23/25 14:43 Respiratory Rate 18 01/23/25 14:43 Blood Pressure 98/62 01/23/25 14:43 Pulse Oximetry (%) 95 01/23/25 14:43 Oxygen Delivery Method Room Air 01/23/25 14:43 Weakness MDM Narrative MDM Narrative:: 74-year-old female with history of type 2 diabetes, high cholesterol, hypertension, STEVEN left eye blindness, in the past, presents with decreased p.o. intake over the last 1 week, confusion, elevated fingerstick at 1528 and generalized weakness. Patient refusing to eat. The emergency department she is initially found to have a high blood sugar. Blood pressure soft on arrival however she is alert and oriented x 3 talking full sentences and GCS 15. Plan Labwork (CBC, CMP) to evaluate for evidence of severe anemia, electrolyte abnl including hypokalemia, hyperkalemia, hypernatremia, hyponatremia, hyperglycemia, hypoglycemia, DKA, etc BHB to evaluate for evidence of ketosis Urine testing to evaluate for evidence of ketones suggestive of DKA Blood cx/lactic acid (VBG/ABG to evaluate for evidence of metabolic acidosis). CXR to evaluate for evidence of pneumonia ECG to evaluate for evidence of arrythmia IVF hydration Re-eval.-Initial fingerstick is 1528. Patient started IV fluids. (Independent Historian: Patient's family ember states that she is not eating as much over the last few weeks because she has difficulty swallowing. EXTERNAL RECORD REVIEW: I reviewed and interpreted prior non-ED medical record specialty: 2021 and the patient was admitted for STEVEN. Social Determinants of Health Affecting Care: Not wanting to eat. Social determinants of health that will affect patient's care are: None Patient data External records reviewed:: [facility] previous records (As above see MDM) Clinical information provided by:: patient and family (See MDM) Social determinants that could affect healthcare access:: none Patient has the following chronic illnesses:: Hypertension, high cholesterol, diabetes How is presenting disease/condition affected by chronic disease/condition?: exacerbated by Evaluation data The following diagnostics were reviewed and interpreted by me:: lab results, radiology exam(s) (Head CT) and EKG tracing(s) Lab and/or radiology exams considered but not ordered:: None Interpretation Summary: White count is 10 and normal, hematocrit 37. Platelets are 314. This is interpreted by me. VBG shows venous gas open pH of 7.22, pCO2 of 37 but anion gap is positive at 17. BUN/creatinine 94/3.8 which is elevated. Glucose is 1528 which is el evated. Phosphorus is 7.0, magnesium is 3.7 both of these are slightly elevated. Otherwise normal LFTs other than an alk phos but no other obstructive picture. Urine shows 4+ glucose without evidence of UTI. EKG Chest x-ray Head CT Medications / Prescriptions Medications or Prescriptions considered but not ordered:: Hydrocortisone however that I think the patient is likely dehydrated since her BUN/creatinine are elevated. Will give more fluids before consider hydrocortisone. Medication administrations:: Medication Administration History Discontinued Medications Acetaminophen (Acetaminophen 325 Mg Tablet) 650 mg PO Q6H PRN PRN Reason: Fever >99.9 Stop: 02/22/25 21:12 Acetaminophen (Acetaminophen 325 Mg Tablet) 650 mg PO Q6H PRN PRN Reason: PAIN SCALE 1-3 (mild Stop: 02/27/25 11:11 Last Admin: 01/29/25 20:23 Dose: 650 mg Documented By: Admin: 01/29/25 00:46 Dose: 650 mg Documented By: IG Albuterol (Albuterol Rt 2.5 Mg/0.5 Ml Nebu) 2.5 mg INH X1 ONE Stop: 01/24/25 18:51 Last Admin: 01/25/25 07:08 Dose: Not Given Documented By: MG Non-Admin Reason: Discontinued Albuterol (Albuterol Rt 2.5 Mg/0.5 Ml Nebu) 2.5 mg INH Q6HRRT PRN PRN Reason: wheezing Stop: 02/23/25 18:59 Albuterol/Ipratropium (Albuterol/Ipratropium (Duoneb) Rt Radha 3 Ml Nebu) 3 ml INH X1 ONE Stop: 01/23/25 16:26 Last Admin: 01/23/25 17:05 Dose: 3 ml Documented By: MW Benzocaine (Benzocaine 20% (Hurricaine) [place] 1 Dose) 0 dose TOP X1 ONE Stop: 01/31/25 14:48 Last Admin: 01/31/25 17:44 Dose: Not Given Documented By: NJ Non-Admin Reason: no egd Benzocaine (Benzocaine 20% (Hurricaine) [place] 1 Dose) Confirm Administered Dose 1 dose TOP .STK-MED ONE Stop: 01/31/25 15:12 Benzocaine (Benzocaine 20% (Hurricaine) [place] 1 Dose) Confirm Administered Dose 1 dose TOP .STK-MED ONE Stop: 02/01/25 13:18 Benzocaine (Benzocaine 20% (Hurricaine) [place] 1 Dose) 0 dose TOP X1 ONE Stop: 02/01/25 13:33 Last Admin: 02/04/25 18:57 Dose: Not Given Documented By: WO Non-Admin Reason: Discontinued Benzocaine (Benzocaine/Menthol 1 Lozenge) 1 lozenge PO Q4HR PRN PRN Reason: throat pain Stop: 03/05/25 10:20 Bisacodyl (Bisacodyl 10 Mg Supp) 10 mg [place] X1 ONE; Protocol Stop: 01/30/25 08:01 Last Admin: 01/30/25 08:21 Dose: 10 mg Documented By: Calcium Carbonate (Calcium Carbonate 600 Mg Tablet) 600 mg PO X1 ONE Stop: 01/26/25 13:54 Last Admin: 01/26/25 15:01 Dose: 600 mg Documented By: keily Calcium Chloride (Calcium Chloride 10% Inj 10 Ml Syrg) 10 ml IV X1 ONE Stop: 01/23/25 16:26 Last Admin: 01/23/25 18:42 Dose: 10 ml Documented By: ED Calcium Gluconate (Calcium Gluconate 10% Inj 1 Gm/10 Ml Vial) 1 gm IV X1 ONE Stop: 01/24/25 17:26 Last Admin: 01/25/25 07:07 Dose: Not Given Documented By: MG Non-Admin Reason: Discontinued Calcium Gluconate (Calcium Gluconate 10% Inj 1 Gm/10 Ml Vial) 1 gm IV X1 ONE Stop: 01/25/25 06:32 Last Admin: 01/25/25 09:25 Dose: 1 gm Documented By: MG Calcium Gluconate (Calcium Gluconate 10% Inj 1 Gm/10 Ml Vial) 1 gm IV X1 ONE Stop: 01/29/25 10:27 Last Admin: 01/29/25 14:01 Dose: Not Given Documented By: AC Non-Admin Reason: Discontinued Cefoxitin Sodium (Cefoxitin Sod Inj 1 Gm Vial) Confirm Administered Dose 2 gm .ROUTE .STK-MED ONE Stop: 01/24/25 13:33 Chlorhexidine Gluconate (Chlorhexidine Mouthwash 0.12% Udc 15 Ml) 15 ml PO X1 ONE Stop: 02/03/25 10:22 Last Admin: 02/03/25 11:11 Dose: 15 ml Documented By: CHEEM1 Dexamethasone Sodium Phosphate (Dexamethasone Sod Phos Inj 10 Mg/Ml Vial) Confirm Administered Dose 10 mg .ROUTE .STK-MED ONE Stop: 01/24/25 12:42 Dextrose (Dextrose 50%-Water Inj 50 Ml Syringe) 50 ml IVP X1 ONE Stop: 01/23/25 16:27 Last Admin: 01/23/25 18:48 Dose: 50 ml Documented By: SHANNAN Dextrose (Dextrose 50%-Water Inj 50 Ml Syringe) 25 ml IV PRNMRX1 PRN PRN Reason: Blood Sugar - Low Dextrose (Dextrose 50%-Water Inj 50 Ml Syringe) 25 ml IV Q15MIN PRN PRN Reason: BG 50-70 responsive npo pt Stop: 02/24/25 08:41 Last Admin: 02/13/25 17:03 Dose: 25 ml Documented By: Admin: 02/13/25 05:56 Dose: 25 ml Documented By: MARJORIE Dextrose (Dextrose 50%-Water Inj 50 Ml Syringe) 50 ml IV Q15MIN PRN PRN Reason: BG <50 OR BG <70 & pt unresponsive Stop: 02/24/25 08:41 Last Admin: 01/29/25 08:11 Dose: 50 ml Documented By: GILLES Diphenhydramine HCl (Diphenhydramine Inj 50 Mg/Ml Vial) 25 mg IVP PRNMRX1 PRN PRN Reason: MODERATE SEDATION Stop: 01/31/25 16:47 Diphenhydramine HCl (Diphenhydramine Inj 50 Mg/Ml Vial) Confirm Administered Dose 50 mg .ROUTE .STK-MED ONE Stop: 01/31/25 15:13 Diphenhydramine HCl (Diphenhydramine Inj 50 Mg/Ml Vial) Confirm Administered Dose 50 mg .ROUTE .STK-MED ONE Stop: 02/01/25 13:19 Diphenhydramine HCl (Diphenhydramine Inj 50 Mg/Ml Vial) 25 mg IVP PRNMRX1 PRN PRN Reason: MODERATE SEDATION Stop: 02/01/25 15:32 Enoxaparin Sodium (Enoxaparin Sod Inj 40 Mg/0.4 Ml Syringe) 30 mg SC QPM [facility] Stop: 02/07/25 20:59 Enoxaparin Sodium (Enoxaparin Sod Inj 40 Mg/0.4 Ml Syringe) 40 mg SC QDAY [facility] Stop: 02/07/25 09:44 Etomidate (Etomidate Inj 2 Mg/Ml Vial 10 Ml) Confirm Administered Dose 20 mg .ROUTE .STK-MED ONE Stop: 01/24/25 12:45 Famotidine (Famotidine Inj 10 Mg/Ml Vial 2 Ml) 20 mg IVP Q12HR [facility] Stop: 02/23/25 08:59 Last Admin: 01/24/25 22:01 Dose: 20 mg Documented By: Admin: 01/24/25 09:03 Dose: 20 mg Documented By: DILIA Fentanyl Citrate (Fentanyl Cit Inj 50 Mcg/Ml Amp 2ml) Confirm Administered Dose 100 mcg .ROUTE .STK-MED ONE Stop: 01/24/25 12:42 Fentanyl Citrate (Fentanyl Cit Inj 50 Mcg/Ml Amp 2ml) 50 mcg IVP Q2M PRN PRN Reason: MODERATE SEDATION Stop: 01/31/25 16:47 Fentanyl Citrate (Fentanyl Cit Inj 50 Mcg/Ml Amp 2ml) Confirm Administered Dose 100 mcg .ROUTE .STK-MED ONE Stop: 01/31/25 15:12 Fentanyl Citrate (Fentanyl Cit Inj 50 Mcg/Ml Amp 2ml) Confirm Administered Dose 100 mcg .ROUTE .STK-MED ONE Stop: 02/01/25 13:18 Fentanyl Citrate (Fentanyl Cit Inj 50 Mcg/Ml Amp 2ml) 50 mcg IVP Q2M PRN PRN Reason: MODERATE SEDATION Stop: 02/01/25 15:32 Folic Acid (Folic Acid 1 Mg Tablet) 1 mg PO QDAY [facility] Stop: 02/27/25 16:29 Last Admin: 02/15/25 09:10 Dose: 1 mg Documented By: Admin: 02/14/25 09:08 Dose: 1 mg Documented By: Admin: 02/13/25 09:52 Dose: 1 mg Documented By: Admin: 02/12/25 10:19 Dose: 1 mg Documented By: SELENE Comments: late due to multiple pt. meds Admin: 02/11/25 08:23 Dose: 1 mg Documented By: Admin: 02/10/25 09:43 Dose: 1 mg Documented By: Admin: 02/09/25 09:28 Dose: 1 mg Documented By: Admin: 02/08/25 09:22 Dose: 1 mg Documented By: Admin: 02/07/25 08:33 Dose: 1 mg Documented By: Admin: 02/06/25 08:43 Dose: 1 mg Documented By: Admin: 02/05/25 08:26 Dose: 1 mg Documented By: СЕРГЕЙ Admin: 02/04/25 11:11 Dose: 1 mg Documented By: Admin: 02/03/25 08:43 Dose: 1 mg Documented By: Admin: 02/02/25 08:50 Dose: 1 mg Documented By: Admin: 02/01/25 08:20 Dose: Not Given Documented By: NJ Non-Admin Reason: NPO Admin: 01/31/25 08:36 Dose: 1 mg Documented By: Admin: 01/30/25 08:21 Dose: 1 mg Documented By: Admin: 01/29/25 08:26 Dose: 1 mg Documented By: Admin: 01/28/25 17:35 Dose: 1 mg Documented By: ILAN Glucagon (Glucagon Inj 1 Mg Vial) 1 mg IM Q15MIN PRN PRN Reason: BG <70, and no IV access Glycerin (Glycerin, Adult 1 Ea Supp) 1 each [place] QDAY PRN PRN Reason: CONSTIPATION Stop: 03/06/25 14:13 Last Admin: 02/04/25 16:24 Dose: 1 each Documented By: СЕРГЕЙ Glycerin (Glycerin, Adult 1 Ea Supp) 1 each [place] QDAY PRN PRN Reason: CONSTIPATION Stop: 03/12/25 17:32 Heparin Sodium (Beef Lung) (Heparin Sod Lock Syr 100 Unit/Ml) Confirm Administered Dose 500 unit .ROUTE .STK-MED ONE Stop: 02/06/25 15:37 Last Admin: 02/06/25 15:49 Dose: Not Given Documented By: EC Non-Admin Reason: Duplicate Medication on eMAR Heparin Sodium (Beef Lung) (Heparin Sod Lock Syr 100 Unit/Ml) 500 unit [place] X1 ONE Stop: 02/06/25 15:36 Last Admin: 02/06/25 15:35 Dose: 500 unit Documented By: EC Heparin Sodium (Beef Lung) (Heparin Sod Lock Syr 100 Unit/Ml) 500 unit [facility] X1 ONE Stop: 02/07/25 14:37 Last Admin: 02/07/25 15:00 Dose: 500 unit Documented By: EC Heparin Sodium (Beef Lung) (Heparin Sod Lock Syr 100 Unit/Ml) Confirm Administered Dose 500 unit .ROUTE .STK-MED ONE Stop: 02/07/25 15:07 Last Admin: 02/07/25 15:16 Dose: Not Given Documented By: CU Non-Admin Reason: Override Medication Heparin Sodium (Porcine) (Heparin Sod Inj 5000 Unit/Ml Vial) 5,000 unit SC Q8HR [facility] Stop: 02/08/25 05:59 Last Admin: 01/25/25 09:33 Dose: Not Given Documented By: MG Non-Admin Reason: Discontinued Heparin Sodium (Porcine) (Heparin Sod Inj 5000 Unit/Ml Vial) 5,000 unit SC Q8HR [facility]; Protocol Stop: 02/09/25 14:14 Last Admin: 01/28/25 07:19 Dose: Not Given Documented By: AC Non-Admin Reason: Discontinued Heparin Sodium (Porcine) (Heparin Sod Inj 5000 Unit/Ml Vial) 5,000 unit SC Q12HR [facility]; Protocol Stop: 02/15/25 14:14 Last Admin: 02/15/25 09:13 Dose: 5,000 unit Documented By: CS Co-signed By: LH Admin: 02/14/25 21:24 Dose: 5,000 unit Documented By: AU Co-signed By: SA Admin: 02/14/25 09:56 Dose: 5,000 unit Documented By: SC Co-signed By: ANGEL Admin: 02/13/25 20:32 Dose: 5,000 unit Documented By: WO Co-signed By: MA Admin: 02/13/25 10:00 Dose: 5,000 unit Documented By: CL Co-signed By: RG Admin: 02/12/25 21:34 Dose: 5,000 unit Documented By: PG Co-signed By: DESEANN Admin: 02/12/25 10:10 Dose: 5,000 unit Documented By: CP Co-signed By: JANN Comments: late due to multiple pt. meds Admin: 02/11/25 20:50 Dose: 5,000 unit Documented By: MEENAKSHI Co-signed By: ALEKSANDAR Admin: 02/11/25 08:26 Dose: 5,000 unit Documented By: SELENE Co-signed By: GILLES Admin: 02/10/25 20:38 Dose: 5,000 unit Documented By: (2) Co-signed By: WB Admin: 02/10/25 09:40 Dose: 5,000 unit Documented By: KRIS Co-signed By: ROMULO Admin: 02/09/25 21:02 Dose: 5,000 unit Documented By: REKHA Co-signed By: MALA Admin: 02/09/25 09:21 Dose: 5,000 unit Documented By: KRIS Co-signed By: MARIO Admin: 02/08/25 20:24 Dose: 5,000 unit Documented By: REKAH Co-signed By: OPAL Admin: 02/08/25 09:27 Dose: 5,000 unit Documented By: SELENE Co-signed By: KRIS Admin: 02/07/25 20:20 Dose: 5,000 unit Documented By: REKHA Co-signed By: OPAL Admin: 02/07/25 08:34 Dose: 5,000 unit Documented By: ROMULO Co-signed By: PARMJIT Admin: 02/06/25 20:45 Dose: 5,000 unit Documented By: JOSE Co-signed By: ALEKSANDAR Admin: 02/06/25 08:41 Dose: 5,000 unit Documented By: DILIA Co-signed By: ANGEL Admin: 02/05/25 20:25 Dose: 5,000 unit Documented By: JUSTIN Co-signed By: DAMIAN Admin: 02/05/25 08:28 Dose: Not Given Documented By: DA Non-Admin Reason: Held for Procedure Admin: 02/04/25 20:09 Dose: 5,000 unit Documented By: WO Co-signed By: CTF Admin: 02/04/25 10:55 Dose: 5,000 unit Documented By: NB Co-signed By: LS Admin: 02/03/25 20:31 Dose: 5,000 unit Documented By: MELISSA Co-signed By: PG Admin: 02/03/25 08:43 Dose: 5,000 unit Documented By: CHEAUGUST Co-signed By: TD Admin: 02/02/25 22:27 Dose: 5,000 unit Documented By: ME Co-signed By: DAMIAN Admin: 02/02/25 08:51 Dose: 5,000 unit Documented By: NYDIA Co-signed By: KEITH Admin: 02/01/25 22:17 Dose: Not Given Documented By: Non-Admin Reason: Cancelled by Provider Comments: per md Admin: 02/01/25 08:21 Dose: Not Given Documented By: [place] Non-Admin Reason: Held for Procedure Admin: 01/31/25 21:00 Dose: Not Given Documented By: MATT Non-Admin Reason: Patient Refused Admin: 01/31/25 08:35 Dose: 5,000 unit Documented By: ILAN Co-signed By: BRAXTON Admin: 01/30/25 20:01 Dose: 5,000 unit Documented By: IG Co-signed By: SS Admin: 01/30/25 08:22 Dose: 5,000 unit Documented By: Co-signed By: KD Admin: 01/29/25 20:24 Dose: 5,000 unit Documented By: IG Co-signed By: MALA Admin: 01/29/25 08:28 Dose: 5,000 unit Documented By: GILLES Co-signed By: EULOGIO Admin: 01/28/25 20:08 Dose: Not Given Documented By: IG Non-Admin Reason: Per Protocol Comments: plt low 84. Admin: 01/28/25 09:40 Dose: 5,000 unit Documented By: ILAN Co-signed By: BONI Admin: 01/27/25 20:05 Dose: Not Given Documented By: (2) Non-Admin Reason: Patient Refused Admin: 01/27/25 08:38 Dose: 5,000 unit Documented By: ILAN Co-signed By: MATT(2) Admin: 01/26/25 21:17 Dose: Not Given Documented By: ARAM Non-Admin Reason: Patient Refused Hydromorphone HCl (Hydromorphone Inj 2 Mg/Ml Vial) 0.5 mg IVP Q4HR PRN PRN Reason: PAIN Stop: 01/29/25 16:43 Hydromorphone HCl (Hydromorphone Inj 2 Mg/Ml Vial) 0.5 mg IVP Q4HR PRN PRN Reason: PAIN SCALE 4-10(Mod-Sev Stop: 01/29/25 16:43 Last Admin: 01/24/25 20:33 Dose: 0.5 mg Documented By: ASIF Sodium Chloride (Ns) 1,000 mls @ 999 mls/hr IV .Q1H1M ONE Stop: 01/23/25 15:58 Last Infusion: 01/23/25 16:21 Dose: Infused Documented By: Admin: 01/23/25 15:33 Dose: 999 mls/hr Documented By: Sodium Chloride (Ns) 1,000 mls @ 999 mls/hr IV .Q1H1M ONE Stop: 01/23/25 17:17 Last Infusion: 01/23/25 17:23 Dose: Infused Documented By: Admin: 01/23/25 16:22 Dose: 999 mls/hr Documented By: Insulin Human Regular 100 unit (/ IV Miscellaneous Supplies) 100 mls @ 5.443 mls/hr IV .[id number] PRN; Protocol PRN Reason: PER PROTOCOL Stop: 02/22/25 17:36 Last Titration: 01/25/25 09:30 Dose: 0 unit/kg/hr, 0 mls/hr Documented By: MG Co-signed By: MV Titration: 01/25/25 07:00 Dose: 0.05 unit/kg/hr, 2.722 mls/hr Documented By: ASIF Co-signed By: RH Titration: 01/25/25 06:00 Dose: 0.05 unit/kg/hr, 2.722 mls/hr Documented By: ASIF Co-signed By: RH Titration: 01/25/25 05:00 Dose: 0.05 unit/kg/hr, 2.722 mls/hr Documented By: ASIF Co-signed By: CONNOR(2) Titration: 01/25/25 04:00 Dose: 0.05 unit/kg/hr, 2.722 mls/hr Documented By: ASIF Co-signed By: CONNOR(2) Titration: 01/25/25 03:00 Dose: 0.05 unit/kg/hr, 2.722 mls/hr Documented By: ASIF Co-signed By: RH Titration: 01/25/25 02:00 Dose: 0.05 unit/kg/hr, 2.722 mls/hr Documented By: ASIF Co-signed By: RH Titration: 01/25/25 01:00 Dose: 0.05 unit/kg/hr, 2.722 mls/hr Documented By: ASIF Co-signed By: Titration: 01/25/25 00:00 Dose: 0.05 unit/kg/hr, 2.722 mls/hr Documented By: ASIF Co-signed By: Titration: 01/24/25 23:00 Dose: 0.05 unit/kg/hr, 2.722 mls/hr Documented By: ASIF Co-signed By: Titration: 01/24/25 22:00 Dose: 0.05 unit/kg/hr, 2.722 mls/hr Documented By: ASIF Co-signed By: Titration: 01/24/25 21:00 Dose: 0.05 unit/kg/hr, 2.722 mls/hr Documented By: ASIF Co-signed By: Titration: 01/24/25 20:00 Dose: 0.05 unit/kg/hr, 2.722 mls/hr Documented By: ASIF Co-signed By: Titration: 01/24/25 19:00 Dose: 0.05 unit/kg/hr, 2.722 mls/hr Documented By: ASIF Co-signed By: Titration: 01/24/25 17:47 Dose: 0.05 unit/kg/hr, 2.722 mls/hr Documented By: DILIA Co-signed By: Titration: 01/24/25 17:00 Dose: 0.05 unit/kg/hr, 2.722 mls/hr Documented By: DILIA Co-signed By: LW Titration: 01/24/25 16:00 Dose: 0.05 unit/kg/hr, 2.722 mls/hr Documented By: DILIA Co-signed By: LW Admin: 01/24/25 15:49 Dose: 0.05 unit/kg/hr, 2.722 mls/hr Documented By: DILIA Co-signed By: GE Titration: 01/24/25 13:17 Dose: Infused Documented By: DILIA Co-signed By: GE Titration: 01/24/25 06:00 Dose: 0.1 unit/kg/hr, 5.443 mls/hr Documented By: MEENAKSHI Co-signed By: RH Titration: 01/24/25 05:00 Dose: 0.1 unit/kg/hr, 5.443 mls/hr Documented By: MEENAKSHI Co-signed By: Titration: 01/24/25 04:00 Dose: 0.1 unit/kg/hr, 5.443 mls/hr Documented By: MEENAKSHI Co-signed By: Titration: 01/24/25 03:00 Dose: 0.1 unit/kg/hr, 5.443 mls/hr Documented By: MEENAKSHI Co-signed By: Titration: 01/24/25 02:00 Dose: 0.1 unit/kg/hr, 5.443 mls/hr Documented By: MEENAKSHI Co-signed By: Titration: 01/24/25 01:00 Dose: 0.1 unit/kg/hr, 5.443 mls/hr Documented By: MEENAKSHI Co-signed By: Titration: 01/24/25 00:00 Dose: 0.1 unit/kg/hr, 5.443 mls/hr Documented By: MEENAKSHI Co-signed By: Titration: 01/23/25 23:00 Dose: 0.1 unit/kg/hr, 5.443 mls/hr Documented By: MEENAKSHI Co-signed By: Admin: 01/23/25 18:54 Dose: 0.1 unit/kg/hr, 5.443 mls/hr Documented By: SHANNAN Co-signed By: REUBEN Sodium Chloride (Ns) 1,000 mls @ 999 mls/hr IV .Q1H1M ONE Stop: 01/23/25 22:07 Last Admin: 01/23/25 21:26 Dose: Not Given Documented By: LINA Non-Admin Reason: Cancelled by Provider Piperacillin/Tazobactam/Dextrose (Zosyn) 3.375 gm in 50 mls @ 100 mls/hr IV X1 ONE; Protocol Stop: 01/23/25 21:36 Last Admin: 01/23/25 21:26 Dose: Not Given Documented By: LINA Non-Admin Reason: Cancelled by Provider Potassium Chloride (Kcl Ivpb) 10 meq in 100 mls @ 100 mls/hr IV .Q1H PRN PRN Reason: IF POTASSIUM LESS THAN 3.3 Stop: 02/22/25 21:12 Magnesium Sulfate (Magnesium Sulfate Ivpb) 2 gm in 50 mls @ 25 mls/hr IV .Q2H PRN PRN Reason: PER DKA PROTOCOL Stop: 02/22/25 21:12 Dextrose/Lactated Ringer's (D5-Lr) 1,000 mls @ 250 mls/hr IV .Q4H PRN PRN Reason: PER PROTOCOL Stop: 02/22/25 21:12 Lactated Ringer's (Lactated Ringers) 1,000 mls @ 250 mls/hr IV .Q4H PRN PRN Reason: PER PROTOCOL Stop: 01/24/25 21:12 Potassium Chloride 20 meq/ (Lactated Ringer's) 1,010 mls @ 250 mls/hr IV .Q4H3M PRN PRN Reason: K LEVEL 3.3 TO 5.3mM/L Stop: 02/22/25 21:12 Potassium Chloride 40 meq/ (Lactated Ringer's) 1,020 mls @ 250 mls/hr IV .Q4H5M PRN PRN Reason: K LEVEL < 3.3 mM/L Stop: 02/22/25 21:12 Potassium Chloride 40 meq/ (Dextrose/Lactated Ringer's) 1,020 mls @ 250 mls/hr IV .Q4H5M PRN PRN Reason: K LEVEL < 3.3mM/L Stop: 02/22/25 21:12 Potassium Cl/Dextrose/Lact Ringer's (Kcl 20 Meq/L In D5-Lr) 20 meq in 1,000 mls @ 250 mls/hr IV .Q4H PRN PRN Reason: K LEVEL 3.3 TO 5.3 mM/L Potassium Chloride (Kcl Ivpb) 10 meq in 100 mls @ 50 mls/hr IV PRN PRN PRN Reason: K LEVEL 3.3 to 5.3 & BG > 200 Stop: 02/22/25 21:12 Last Admin: 01/23/25 21:51 Dose: 50 mls/hr Documented By: Potassium Phosphate (Pot Phos 15 Mmol In Ns 250 Ml) 15 mmol in 250 mls @ 62.5 mls/hr IV PRN PRN PRN Reason: Phosphate <= 1mg/dL Stop: 02/22/25 21:12 Sodium Phosphate 15 mmol/ (Sodium Chloride) 255 mls @ 62.5 mls/hr IV .Q4H5M PRN PRN Reason: Phosphate <= 1mg/dL and K> than 5.3 Stop: 02/22/25 21:12 Sodium Chloride (Ns 0.45%) 1,000 mls @ 150 mls/hr IV .Q6H40M [facility] Stop: 02/22/25 21:24 Last Admin: 01/23/25 22:03 Dose: Not Given Documented By: LINA Non-Admin Reason: Cancelled by Provider Sodium Chloride (Ns 0.45%) 1,000 mls @ 150 mls/hr IV .Q6H40M [facility] Stop: 02/22/25 22:14 Last Admin: 01/23/25 22:27 Dose: Not Given Documented By: LINA Non-Admin Reason: Duplicate Medication on eMAR Sodium Chloride (Ns 0.45%) 1,000 mls @ 999 mls/hr IV .Q1H1M [facility] Stop: 02/22/25 22:16 Last Admin: 01/25/25 07:07 Dose: Not Given Documented By: MG Non-Admin Reason: Discontinued Infusion: 01/23/25 22:32 Dose: 0 mls/hr Documented By: Admin: 01/23/25 22:31 Dose: 999 mls/hr Documented By: Sodium Chloride (Ns 0.45%) 1,000 mls @ 250 mls/hr IV .Q4H [facility] Stop: 02/22/25 23:41 Last Admin: 01/25/25 07:09 Dose: Not Given Documented By: MG Non-Admin Reason: Discontinued Admin: 01/25/25 07:08 Dose: Not Given Documented By: MG Non-Admin Reason: Discontinued Admin: 01/25/25 07:07 Dose: Not Given Documented By: MG Non-Admin Reason: Discontinued Admin: 01/24/25 17:46 Dose: Not Given Documented By: ABUNM Non-Admin Reason: clearing task from previous shift Admin: 01/24/25 02:59 Dose: 250 mls/hr Documented By: Infusion: 01/24/25 02:24 Dose: Infused Documented By: Admin: 01/23/25 22:45 Dose: 250 mls/hr Documented By: MEENAKSHI Lactated Ringer's (Lactated Ringers) 1,000 mls @ 150 mls/hr IV .Q6H40M PRN PRN Reason: PER PROTOCOL Stop: 01/24/25 21:12 Last Admin: 01/24/25 15:55 Dose: 150 mls/hr Documented By: Infusion: 01/24/25 15:55 Dose: Infused Documented By: Admin: 01/24/25 12:09 Dose: 150 mls/hr Documented By: Infusion: 01/24/25 12:09 Dose: Infused Documented By: Admin: 01/24/25 06:31 Dose: 150 mls/hr Documented By: MEENAKSHI Lactated Ringer's (Lactated Ringers) 1,000 mls @ 999 mls/hr IV .Q1H1M ONE Stop: 01/24/25 08:08 Last Admin: 01/24/25 07:25 Dose: 999 mls/hr Documented By: DILIA Norepinephrine/Dextrose (Levophed In D5w 8mg/250ml) 8 mg in 250 mls @ 5.103 mls/hr IV .Q24H PRN; Protocol PRN Reason: PER PROTOCOL Stop: 02/23/25 08:18 Last Titration: 01/26/25 02:15 Dose: 0 mcg/kg/min, 0 mls/hr Documented By: Titration: 01/26/25 02:00 Dose: 0.01 mcg/kg/min, 1.021 mls/hr Documented By: Titration: 01/26/25 01:00 Dose: 0.01 mcg/kg/min, 1.021 mls/hr Documented By: Titration: 01/26/25 00:00 Dose: 0.01 mcg/kg/min, 1.021 mls/hr Documented By: Titration: 01/25/25 23:00 Dose: 0.01 mcg/kg/min, 1.021 mls/hr Documented By: Titration: 01/25/25 22:00 Dose: 0.01 mcg/kg/min, 1.021 mls/hr Documented By: Titration: 01/25/25 21:32 Dose: 0.01 mcg/kg/min, 1.021 mls/hr Documented By: Titration: 01/25/25 21:00 Dose: 0.03 mcg/kg/min, 3.062 mls/hr Documented By: Titration: 01/25/25 20:50 Dose: 0.03 mcg/kg/min, 3.062 mls/hr Documented By: Titration: 01/25/25 20:00 Dose: 0.05 mcg/kg/min, 5.103 mls/hr Documented By: Titration: 01/25/25 19:05 Dose: 0.05 mcg/kg/min, 5.103 mls/hr Documented By: Titration: 01/25/25 18:30 Dose: 0 mcg/kg/min, 0 mls/hr Documented By: Titration: 01/25/25 18:00 Dose: 0.01 mcg/kg/min, 1.021 mls/hr Documented By: Titration: 01/25/25 17:00 Dose: 0.01 mcg/kg/min, 1.021 mls/hr Documented By: Titration: 01/25/25 16:00 Dose: 0.01 mcg/kg/min, 1.021 mls/hr Documented By: Titration: 01/25/25 15:00 Dose: 0.01 mcg/kg/min, 1.021 mls/hr Documented By: Titration: 01/25/25 14:00 Dose: 0.01 mcg/kg/min, 1.021 mls/hr Documented By: Titration: 01/25/25 13:30 Dose: 0.03 mcg/kg/min, 3.062 mls/hr Documented By: Titration: 01/25/25 13:00 Dose: 0.01 mcg/kg/min, 1.021 mls/hr Documented By: Titration: 01/25/25 12:00 Dose: 0.01 mcg/kg/min, 1.021 mls/hr Documented By: Titration: 01/25/25 11:00 Dose: 0.03 mcg/kg/min, 3.062 mls/hr Documented By: Titration: 01/25/25 10:30 Dose: 0.05 mcg/kg/min, 5.103 mls/hr Documented By: Titration: 01/25/25 10:00 Dose: 0.03 mcg/kg/min, 3.062 mls/hr Documented By: Titration: 01/25/25 09:30 Dose: 0.03 mcg/kg/min, 3.062 mls/hr Documented By: Titration: 01/25/25 08:30 Dose: 0.05 mcg/kg/min, 5.103 mls/hr Documented By: Titration: 01/25/25 07:45 Dose: 0 mcg/kg/min, 0 mls/hr Documented By: Titration: 01/25/25 07:30 Dose: 0.01 mcg/kg/min, 1.021 mls/hr Documented By: Titration: 01/25/25 07:15 Dose: 0.03 mcg/kg/min, 3.062 mls/hr Documented By: Titration: 01/25/25 07:00 Dose: 0.05 mcg/kg/min, 5.103 mls/hr Documented By: Titration: 01/25/25 06:00 Dose: 0.05 mcg/kg/min, 5.103 mls/hr Documented By: Titration: 01/25/25 05:16 Dose: 0.07 mcg/kg/min, 7.144 mls/hr Documented By: Titration: 01/25/25 05:00 Dose: 0.09 mcg/kg/min, 9.185 mls/hr Documented By: Titration: 01/25/25 04:32 Dose: 0.11 mcg/kg/min, 11.226 mls/hr Documented By: Titration: 01/25/25 04:00 Dose: 0.13 mcg/kg/min, 13.268 mls/hr Documented By: Titration: 01/25/25 03:00 Dose: 0.15 mcg/kg/min, 15.309 mls/hr Documented By: Titration: 01/25/25 02:48 Dose: 0.15 mcg/kg/min, 15.309 mls/hr Documented By: Titration: 01/25/25 02:16 Dose: 0.17 mcg/kg/min, 17.35 mls/hr Documented By: Titration: 01/25/25 02:00 Dose: 0.19 mcg/kg/min, 19.391 mls/hr Documented By: Titration: 01/25/25 01:29 Dose: 0.19 mcg/kg/min, 19.391 mls/hr Documented By: Titration: 01/25/25 01:00 Dose: 0.21 mcg/kg/min, 21.432 mls/hr Documented By: Titration: 01/25/25 00:30 Dose: 0.21 mcg/kg/min, 21.432 mls/hr Documented By: Titration: 01/25/25 00:00 Dose: 0.23 mcg/kg/min, 23.473 mls/hr Documented By: Admin: 01/24/25 23:31 Dose: 0.23 mcg/kg/min, 23.473 mls/hr Documented By: Titration: 01/24/25 23:31 Dose: Infused Documented By: Titration: 01/24/25 23:00 Dose: 0.25 mcg/kg/min, 25.515 mls/hr Documented By: Titration: 01/24/25 22:00 Dose: 0.25 mcg/kg/min, 25.515 mls/hr Documented By: Titration: 01/24/25 21:17 Dose: 0.25 mcg/kg/min, 25.515 mls/hr Documented By: Titration: 01/24/25 21:00 Dose: 0.21 mcg/kg/min, 21.432 mls/hr Documented By: Titration: 01/24/25 20:55 Dose: 0.17 mcg/kg/min, 17.35 mls/hr Documented By: Titration: 01/24/25 20:50 Dose: 0.11 mcg/kg/min, 11.226 mls/hr Documented By: Titration: 01/24/25 20:29 Dose: 0.09 mcg/kg/min, 9.185 mls/hr Documented By: Titration: 01/24/25 20:00 Dose: 0.07 mcg/kg/min, 7.144 mls/hr Documented By: Titration: 01/24/25 19:50 Dose: 0.07 mcg/kg/min, 7.144 mls/hr Documented By: Titration: 01/24/25 19:00 Dose: 0.05 mcg/kg/min, 5.103 mls/hr Documented By: Titration: 01/24/25 18:00 Dose: 0.07 mcg/kg/min, 7.144 mls/hr Documented By: Admin: 01/24/25 17:58 Dose: 0.07 mcg/kg/min, 7.144 mls/hr Documented By: DILIA Norepinephrine/Dextrose (Levophed In D5w 8mg/250ml) Confirm Administered Dose 8 mg in 250 mls @ ud IV .STK-MED ONE Stop: 01/24/25 08:18 Last Admin: 01/24/25 08:25 Dose: 5 mls/hr Documented By: DILIA Piperacillin/Tazobactam/Dextrose (Zosyn) 3.375 gm in 50 mls @ 100 mls/hr IV Q8HR ELV[facility]; Protocol Stop: 01/31/25 08:44 Last Admin: 01/27/25 05:25 Dose: 100 mls/hr Documented By: Infusion: 01/26/25 22:04 Dose: Infused Documented By: Admin: 01/26/25 21:34 Dose: 100 mls/hr Documented By: [email or web address] Infusion: 01/26/25 15:30 Dose: Infused Documented By: [email or web address] Admin: 01/26/25 15:00 Dose: 100 mls/hr Documented By: keily Infusion: 01/26/25 07:05 Dose: Infused Documented By: keily Admin: 01/26/25 06:35 Dose: 100 mls/hr Documented By: Infusion: 01/25/25 22:04 Dose: Infused Documented By: Admin: 01/25/25 21:34 Dose: 100 mls/hr Documented By: Infusion: 01/25/25 14:24 Dose: Infused Documented By: Admin: 01/25/25 13:54 Dose: 100 mls/hr Documented By: Infusion: 01/25/25 05:40 Dose: Infused Documented By: Admin: 01/25/25 05:10 Dose: 100 mls/hr Documented By: Infusion: 01/24/25 22:31 Dose: Infused Documented By: Admin: 01/24/25 22:01 Dose: 100 mls/hr Documented By: Infusion: 01/24/25 16:21 Dose: Infused Documented By: Admin: 01/24/25 15:51 Dose: 100 mls/hr Documented By: Infusion: 01/24/25 09:33 Dose: Infused Documented By: Admin: 01/24/25 09:03 Dose: 100 mls/hr Documented By: DILIA Lactated Ringer's (Lactated Ringers) 1,000 mls @ 999 mls/hr IV .Q1H1M ONE Stop: 01/24/25 09:46 Last Admin: 01/24/25 08:58 Dose: 999 mls/hr Documented By: DILIA Albumin Human (Albuminex 25% Ivpb) 25 gm in 100 mls @ 100 mls/hr IV X1 ONE Stop: 01/24/25 12:44 Last Admin: 01/24/25 12:09 Dose: 100 mls/hr Documented By: DILIA Albumin Human (Albuminex 25% Ivpb) Confirm Administered Dose 25 gm in 100 mls @ ud IV .STK-MED ONE Stop: 01/24/25 13:50 Acetaminophen (Ofirmev Inj) Confirm Administered Dose 100 mls @ ud IV .STK-MED ONE Stop: 01/24/25 14:41 Acetaminophen (Ofirmev Inj) 1,000 mg in 100 mls @ 250 mls/hr IV Q6HR [facility] Stop: 01/25/25 12:23 Last Infusion: 01/25/25 12:24 Dose: Infused Documented By: Admin: 01/25/25 12:00 Dose: 250 mls/hr Documented By: Infusion: 01/25/25 06:13 Dose: Infused Documented By: Admin: 01/25/25 05:49 Dose: 250 mls/hr Documented By: Infusion: 01/25/25 01:20 Dose: Infused Documented By: Admin: 01/25/25 00:56 Dose: 250 mls/hr Documented By: Infusion: 01/24/25 19:03 Dose: Infused Documented By: Admin: 01/24/25 18:39 Dose: 250 mls/hr Documented By: DILIA Calcium Gluconate/Sodium Chloride (Calcium Gluc/Ns 1000mg Ivpb) 1,000 mg in 50 mls @ 50 mls/hr IV X1 ONE Stop: 01/24/25 18:29 Last Admin: 01/24/25 18:38 Dose: 50 mls/hr Documented By: DILIA Vasopressin/Sodium Chloride (Vasostrict/Ns Ivpb) 20 unit in 100 mls @ 9 mls/hr IV .Q11H7M PRN; Protocol PRN Reason: PER PROTOCOL Stop: 02/23/25 21:07 Vasopressin/Sodium Chloride (Vasostrict/Ns Ivpb) 20 unit in 100 mls @ 9 mls/hr IV .Q11H7M PRN; Protocol PRN Reason: PER PROTOCOL Stop: 02/23/25 21:07 Last Titration: 01/25/25 07:15 Dose: 0 unit/min, 0 mls/hr Documented By: Admin: 01/25/25 05:59 Dose: 0.03 unit/min, 9 mls/hr Documented By: Titration: 01/25/25 05:53 Dose: Infused Documented By: Admin: 01/24/25 21:37 Dose: 0.03 unit/min, 9 mls/hr Documented By: GOLD Lactated Ringer's (Lactated Ringers) 1,000 mls @ 150 mls/hr IV .Q6H40M [facility] Stop: 01/25/25 12:14 Last Admin: 01/25/25 08:05 Dose: Not Given Documented By: MG Non-Admin Reason: per MD Infusion: 01/25/25 02:30 Dose: 0 mls/hr Documented By: Admin: 01/24/25 23:20 Dose: 150 mls/hr Documented By: GOLD Lactated Ringer's (Lactated Ringers) 1,000 mls @ 999 mls/hr IV .Q1H1M ONE Stop: 01/25/25 03:30 Last Admin: 01/25/25 07:06 Dose: Not Given Documented By: MG Non-Admin Reason: Discontinued Dextrose/Lactated Ringer's (D5-Lr) 1,000 mls @ 150 mls/hr IV .Q6H40M PRN PRN Reason: BLOOD SUGAR <200 Stop: 02/24/25 02:29 Last Admin: 01/25/25 02:30 Dose: 150 mls/hr Documented By: GOLD Dextrose/Sodium Chloride (D5-Ns) 1,000 mls @ 150 mls/hr IV .Q6H40M PRN PRN Reason: For BG less than or equal to 200 mg/dL Stop: 02/24/25 02:59 Last Infusion: 01/25/25 08:06 Dose: Infused Documented By: Admin: 01/25/25 03:00 Dose: 150 mls/hr Documented By: GOLD Lactated Ringer's (Lactated Ringers) 1,000 mls @ 150 mls/hr IV .Q6H40M [facility] Stop: 02/24/25 08:03 Last Admin: 01/25/25 08:07 Dose: 150 mls/hr Documented By: MG Dextrose/Lactated Ringer's (D5-Lr) 1,000 mls @ 75 mls/hr IV .[id number] [facility] Stop: 02/24/25 08:44 Last Admin: 01/25/25 22:54 Dose: 75 mls/hr Documented By: Infusion: 01/25/25 22:43 Dose: Infused Documented By: Admin: 01/25/25 09:23 Dose: 75 mls/hr Documented By: MG Dextrose/Sodium Chloride (D5-1/2ns) 1,000 mls @ 100 mls/hr IV .Q10H [facility] Stop: 02/25/25 07:14 Last Admin: 01/28/25 07:19 Dose: Not Given Documented By: GILLES Non-Admin Reason: Discontinued Dextrose/Sodium Chloride (D5-1/2ns) 1,000 mls @ 120 mls/hr IV .Q8H20M [facility] Stop: 02/25/25 11:43 Last Admin: 01/28/25 07:19 Dose: Not Given Documented By: GILLES Non-Admin Reason: Discontinued Sodium Chloride (Ns 0.45%) 1,000 mls @ 120 mls/hr IV .Q8H20M [facility] Stop: 02/25/25 12:36 Last Admin: 01/26/25 14:57 Dose: 120 mls/hr Documented By: keily Dextrose (D5w) 1,000 mls @ 100 mls/hr IV .Q10H [facility] Stop: 01/27/25 01:29 Last Admin: 01/26/25 18:32 Dose: 100 mls/hr Documented By: HANSA Dextrose (D5w) 1,000 mls @ 100 mls/hr IV .Q10H [facility] Stop: 02/26/25 09:59 Last Infusion: 01/27/25 15:52 Dose: 50 mls/hr Documented By: Admin: 01/27/25 10:35 Dose: 100 mls/hr Documented By: ILAN Dextrose/Sodium Chloride (D5-Ns) 1,000 mls @ 75 mls/hr IV .[id number] [facility] Stop: 01/28/25 12:39 Last Admin: 01/27/25 15:53 Dose: Not Given Documented By: ILAN Non-Admin Reason: discontinued med Dextrose (D5w) 1,000 mls @ 50 mls/hr IV .Q20H [facility] Stop: 02/26/25 15:03 Last Admin: 01/27/25 15:52 Dose: Not Given Documented By: ILAN Non-Admin Reason: see previous bag Dextrose (D5w) 1,000 mls @ 100 mls/hr IV .Q10H [facility] Stop: 02/26/25 23:20 Last Admin: 01/28/25 22:13 Dose: Not Given Documented By: MARCO ANTONIO Non-Admin Reason: Discontinued Comments: MEDICATION NO LONGER ACTIVE. PREVIOUS SHIFT. Admin: 01/28/25 04:10 Dose: 100 mls/hr Documented By: (2) Potassium Phosphate 22.5 mmol/ (Sodium Chloride) 507.5 mls @ 82.778 mls/hr IV X1 ONE Stop: 01/28/25 13:54 Last Admin: 01/28/25 09:39 Dose: 82.778 mls/hr Documented By: XIONM Dextrose (D5w) 500 mls @ 125 mls/hr IV .Q4H [facility] Stop: 01/28/25 11:59 Last Admin: 01/28/25 10:06 Dose: 125 mls/hr Documented By: XIONM Dextrose (D5w) 500 mls @ 100 mls/hr IV .Q5H [facility] Stop: 01/28/25 16:07 Last Admin: 01/28/25 11:25 Dose: 100 mls/hr Documented By: XIONM Dextrose (D5w) 1,000 mls @ 100 mls/hr IV .Q10H [facility] Stop: 01/29/25 18:29 Last Admin: 01/29/25 09:05 Dose: 100 mls/hr Documented By: GILLES Calcium Gluconate/Sodium Chloride (Calcium Gluc/Ns 1000mg Ivpb) 1,000 mg in 50 mls @ 50 mls/hr IV X1 ONE Stop: 01/29/25 11:29 Last Admin: 01/29/25 10:52 Dose: 50 mls/hr Documented By: GILLES Multivitamins/Minerals 10 ml/Potassium Phosphate 30 mmol/Calcium Gluconate 2 gm/ Amino Acids 2,040 mls @ 45.946 mls/hr IV QDAY@1800 ONE Stop: 01/30/25 17:59 Last Infusion: 01/30/25 02:00 Dose: 100 mls/hr Documented By: Admin: 01/29/25 18:00 Dose: 45.946 mls/hr Documented By: GILLES Fat Emulsion Intravenous (Intralipid 20% Iv) 500 mls @ 32 mls/hr IV [id number] [facility] Stop: 02/28/25 17:59 Last Admin: 02/12/25 17:35 Dose: 32 mls/hr Documented By: Infusion: 02/11/25 09:30 Dose: Infused Documented By: Admin: 02/10/25 17:52 Dose: 32 mls/hr Documented By: Infusion: 02/08/25 09:38 Dose: Infused Documented By: Admin: 02/07/25 18:00 Dose: 32 mls/hr Documented By: Infusion: 02/06/25 09:41 Dose: Infused Documented By: Admin: 02/05/25 18:03 Dose: 32 mls/hr Documented By: СЕРГЕЙ Infusion: 02/04/25 08:45 Dose: Infused Documented By: СЕРГЕЙ Admin: 02/03/25 17:07 Dose: 32 mls/hr Documented By: Admin: 01/31/25 19:13 Dose: Not Given Documented By: ALLEGRA Non-Admin Reason: no iv access Infusion: 01/30/25 09:41 Dose: Infused Documented By: Admin: 01/29/25 18:03 Dose: 32 mls/hr Documented By: GILLES Magnesium Sulfate (Magnesium Sulfate Ivpb) 4 gm in 50 mls @ 12.5 mls/hr IV X1 ONE Stop: 01/30/25 11:53 Last Admin: 01/30/25 09:18 Dose: Not Given Documented By: Non-Admin Reason: Discontinued Multivitamins/Minerals 10 ml/Potassium Phosphate 15 mmol/Calcium Gluconate 2 gm/Magnesium Sulfate 2 gm/ Amino Acids 2,039 mls @ 100 mls/hr IV QDAY@1800 ONE Stop: 01/31/25 14:23 Last Admin: 01/30/25 17:39 Dose: 100 mls/hr Documented By: Sodium Acetate 40 meq/ Calcium Gluconate 2 gm/ Multivitamins /Minerals 10 ml/ Amino Acids 2,050 mls @ 100 mls/hr IV .[id number] ELVIA Stop: 02/01/25 10:53 Last Admin: 01/31/25 19:12 Dose: Not Given Documented By: [place] Non-Admin Reason: no iv access Sodium Chloride (Ns) 500 mls @ 20 mls/hr IV .Q24H ELVIA Stop: 03/02/25 14:48 Last Admin: 02/04/25 18:57 Dose: Not Given Documented By: WO Non-Admin Reason: Discontinued Admin: 01/31/25 17:45 Dose: Not Given Documented By: [place] Non-Admin Reason: no egd Sodium Acetate 40 meq/Magnesium Sulfate 2 gm/Multivitamins/Minerals 10 ml/Amino Acids 2,034 mls @ 50 mls/hr IV .Q24H ELVIA Stop: 02/02/25 10:59 Last Infusion: 02/01/25 19:45 Dose: 100 mls/hr Documented By: Admin: 02/01/25 10:43 Dose: 50 mls/hr Documented By: NJ Sodium Chloride (Ns) 500 mls @ 20 mls/hr IV .Q24H ONE Stop: 02/02/25 13:14 Last Admin: 02/01/25 13:15 Dose: 20 mls/hr Documented By: TASIA Sodium Acetate 60 meq/ Calcium Gluconate 2 gm/ Multivitamins /Minerals 10 ml/ Amino Acids 2,060 mls @ 100 mls/hr IV .[id number] ELVIA Stop: 02/03/25 07:35 Last Admin: 02/02/25 11:04 Dose: 100 mls/hr Documented By: NYDIA Amino Acids (Clinimix 4.25/5) 1,000 mls @ 100 mls/hr IV .Q10H ELVIA Stop: 02/03/25 17:35 Last Admin: 02/03/25 08:44 Dose: 100 mls/hr Documented By: TASHA Potassium Phosphate 24 mmol/Magnesium Sulfate 2 gm/Calcium Gluconate 1 gm/ Sodium Acetate 40 meq/ Amino Acids 2,042 mls @ 100 mls/hr IV .[id number] ELVIA Stop: 02/04/25 14:25 Last Admin: 02/03/25 17:07 Dose: 100 mls/hr Documented By: TASHA Lactated Ringer's (Lactated Ringers) 1,000 mls @ 50 mls/hr IV .Q20H ELVIA Stop: 02/04/25 12:14 Last Infusion: 02/04/25 14:21 Dose: Infused Documented By: СЕРГЕЙ Admin: 02/03/25 18:05 Dose: 50 mls/hr Documented By: TASHA Sodium Acetate 60 meq/ Calcium Gluconate 2 gm/ Multivitamins /Minerals 10 ml/ Amino Acids 2,060 mls @ 100 mls/hr IV .[id number] ELVIA Stop: 02/05/25 11:01 Last Infusion: 02/05/25 10:52 Dose: Infused Documented By: СЕРГЕЙ Admin: 02/04/25 14:16 Dose: 100 mls/hr Documented By: СЕРГЕЙ Magnesium Sulfate (Magnesium Sulfate Ivpb) 4 gm in 50 mls @ 12.5 mls/hr IV X1 ONE Stop: 02/05/25 11:53 Last Admin: 02/05/25 08:26 Dose: 12.5 mls/hr Documented By: СЕРГЕЙ Sodium Acetate 40 meq/Potassium Phosphate 24 mmol/Magnesium Sulfate 4 gm/ Amino Acids 2,036 mls @ 100 mls/hr IV .[id number] ELVIA Stop: 02/06/25 07:23 Last Admin: 02/05/25 11:41 Dose: 100 mls/hr Documented By: СЕРГЕЙ Amino Acids (Clinimix 4.25/5) 1,000 mls @ 100 mls/hr IV .Q10H ELVIA Stop: 02/06/25 17:23 Last Admin: 02/06/25 10:03 Dose: 100 mls/hr Documented By: DILIA Potassium Phosphate 21 mmol/Calcium Gluconate 2 gm/ Amino Acids 2,027 mls @ 100 mls/hr IV .[id number] ELVIA Stop: 02/07/25 16:16 Last Admin: 02/06/25 20:50 Dose: 100 mls/hr Documented By: JOSE Calcium Gluconate 1 gm/Multivitamins/Minerals 10 ml/Amino Acids/Electrolytes 1,020 mls @ 30 mls/hr IV QDAY@1800 ONE Stop: 02/08/25 17:59 Last Infusion: 02/08/25 02:00 Dose: 55 mls/hr Documented By: Admin: 02/07/25 18:00 Dose: 30 mls/hr Documented By: ROMULO Potassium Chloride (Kcl Ivpb) 10 meq in 100 mls @ 100 mls/hr IV X1 ONE Stop: 02/08/25 09:39 Last Admin: 02/08/25 09:55 Dose: 100 mls/hr Documented By: SELENE Magnesium Sulfate (Magnesium Sulfate Ivpb) 2 gm in 50 mls @ 25 mls/hr IV X1 ONE Stop: 02/08/25 10:39 Last Admin: 02/08/25 09:54 Dose: 25 mls/hr Documented By: SELENE Magnesium Sulfate 2 gm/Multivitamins/Minerals 10 ml/Potassium Acetate 40 meq/Amino Acids 2,034 mls @ 55 mls/hr IV QDAY@1800 [facility] Stop: 02/09/25 17:59 Last Admin: 02/08/25 18:26 Dose: 55 mls/hr Documented By: SELENE Magnesium Sulfate 2 gm/Potassium Phosphate 21 mmol/Multivitamins/Minerals 10 ml/Amino Acids 2,021 mls @ 55 mls/hr IV QDAY@1800 [facility] Stop: 02/10/25 17:59 Last Admin: 02/09/25 17:54 Dose: 55 mls/hr Documented By: KRIS Magnesium Sulfate 2 gm/ Sodium Phosphate 24 mmol/Multivitamins/Minerals 10 ml/Amino Acids 2,022 mls @ 55 mls/hr IV QDAY@1800 [facility] Stop: 02/11/25 17:59 Last Admin: 02/10/25 17:53 Dose: 55 mls/hr Documented By: KRIS Magnesium Sulfate 2 gm/Multivitamins/Minerals 10 ml/Amino Acids 2,014 mls @ 55 mls/hr IV QDAY@1800 [facility] Stop: 02/12/25 17:59 Magnesium Sulfate 2 gm/Multivitamins/Minerals 10 ml/Amino Acids 2,014 mls @ 30 mls/hr IV QDAY@1800 [facility] Stop: 02/12/25 17:59 Last Admin: 02/11/25 17:35 Dose: 30 mls/hr Documented By: SELENE Magnesium Sulfate (Magnesium Sulfate Ivpb) 2 gm in 50 mls @ 25 mls/hr IV X1 ONE Stop: 02/15/25 09:46 Last Admin: 02/15/25 08:40 Dose: 25 mls/hr Documented By: BRAXTON Insulin Degludec (Insulin Degludec 5 Unit/0.05 Ml (Per 5 Units)) 20 unit SC QDAY [facility]VIA Stop: 02/24/25 08:59 Last Admin: 01/29/25 08:28 Dose: Not Given Documented By: AC Non-Admin Reason: BG 42 Admin: 01/28/25 09:40 Dose: 20 unit Documented By: ILAN Co-signed By: BONI Admin: 01/27/25 08:39 Dose: 20 unit Documented By: ILAN Co-signed By: MATT(2) Admin: 01/26/25 09:14 Dose: 20 unit Documented By: keily Co-signed By: Admin: 01/25/25 09:24 Dose: 20 unit Documented By: Co-signed By: FELY Insulin Degludec (Insulin Degludec 5 Unit/0.05 Ml (Per 5 Units)) 10 unit SC QDAY [facility] Stop: 03/01/25 08:59 Last Admin: 02/02/25 08:52 Dose: 10 unit Documented By: NYDIA Co-signed By: KEITH Admin: 02/01/25 08:21 Dose: Not Given Documented By: NJ Non-Admin Reason: NPO Admin: 01/31/25 08:33 Dose: 10 unit Documented By: ILAN Co-signed By: BRAXTON Admin: 01/30/25 08:23 Dose: 10 unit Documented By: Co-signed By: MARIO Insulin Degludec (Insulin Degludec 5 Unit/0.05 Ml (Per 5 Units)) 32 unit SC QDAY [facility] Stop: 03/05/25 08:59 Last Admin: 02/03/25 08:46 Dose: 32 unit Documented By: TASHA Co-signed By: URIAH Insulin Degludec (Insulin Degludec 5 Unit/0.05 Ml (Per 5 Units)) 22 unit SC X1 ONE Stop: 02/02/25 15:37 Last Admin: 02/02/25 16:12 Dose: 22 unit Documented By: NYDIA Co-signed By: ANGEL Insulin Degludec (Insulin Degludec 5 Unit/0.05 Ml (Per 5 Units)) 40 unit SC QDAY [facility] Stop: 03/06/25 08:59 Last Admin: 02/08/25 09:19 Dose: 40 unit Documented By: SELENE Co-signed By: KRIS Admin: 02/07/25 08:34 Dose: 40 unit Documented By: ROMULO Co-signed By: PARMJIT Admin: 02/06/25 08:45 Dose: 40 unit Documented By: DILIA Co-signed By: ANGEL Admin: 02/05/25 08:28 Dose: 40 unit Documented By: СЕРГЕЙ Co-signed By: HANSA Admin: 02/04/25 10:56 Dose: 40 unit Documented By: AALIYAH Co-signed By: CRISTI Insulin Degludec (Insulin Degludec 5 Unit/0.05 Ml (Per 5 Units)) 44 unit SC QDAY [facility] Stop: 03/11/25 08:59 Last Admin: 02/10/25 09:41 Dose: 44 unit Documented By: KRIS Co-signed By: ROMULO Admin: 02/09/25 09:24 Dose: 44 unit Documented By: KRIS Co-signed By: MARIO Insulin Degludec (Insulin Degludec 5 Unit/0.05 Ml (Per 5 Units)) 25 unit SC BID [facility] Stop: 03/13/25 08:59 Last Admin: 02/13/25 09:54 Dose: 25 unit Documented By: CL Co-signed By: ADELINA Admin: 02/12/25 21:45 Dose: 25 unit Documented By: PG Co-signed By: CONNOR Admin: 02/12/25 10:09 Dose: 25 unit Documented By: SELENE Co-signed By: JANN Comments: late due to multiple pt. meds Admin: 02/11/25 20:50 Dose: 25 unit Documented By: MEENAKSHI Co-signed By: SS Admin: 02/11/25 08:26 Dose: 25 unit Documented By: SELENE Co-signed By: AC Insulin Degludec (Insulin Degludec 5 Unit/0.05 Ml (Per 5 Units)) 40 unit SC QDAY [facility] Stop: 03/16/25 08:59 Insulin Degludec (Insulin Degludec 5 Unit/0.05 Ml (Per 5 Units)) 30 unit SC QDAY [facility] Stop: 03/16/25 08:59 Insulin Degludec (Insulin Degludec 5 Unit/0.05 Ml (Per 5 Units)) 20 unit SC QDAY [facility] Stop: 03/16/25 11:59 Last Admin: 02/14/25 13:49 Dose: Not Given Documented By: ANGEL Non-Admin Reason: Cancelled by Provider Insulin Degludec (Insulin Degludec 5 Unit/0.05 Ml (Per 5 Units)) 10 unit SC QDAY [facility] Stop: 03/17/25 08:59 Last Admin: 02/15/25 09:09 Dose: 10 unit Documented By: BRAXTON Co-signed By: RICHARD Insulin Human Lispro (Insulin Lispro (Admelog) 1 Unit/0.01 Ml Unit) 0 unit SC Q6HR [facility]; Protocol Stop: 02/24/25 08:44 Last Admin: 01/26/25 06:34 Dose: Not Given Documented By: ASIF Non-Admin Reason: Per Protocol Admin: 01/26/25 00:15 Dose: 1 unit Documented By: ASIF Co-signed By: CONNOR Admin: 01/25/25 18:36 Dose: Not Given Documented By: Non-Admin Reason: BG 143 Admin: 01/25/25 12:04 Dose: 1 unit Documented By: Co-signed By: FELY Admin: 01/25/25 09:25 Dose: Not Given Documented By: Non-Admin Reason: BG 121 Insulin Human Lispro (Insulin Lispro (Admelog) 1 Unit/0.01 Ml Unit) 0 unit SC AC [facility]; Protocol Stop: 02/25/25 16:59 Insulin Human Lispro (Insulin Lispro (Admelog) 1 Unit/0.01 Ml Unit) 0 unit SC ACHS [facility]; Protocol Stop: 02/25/25 16:59 Last Admin: 01/31/25 08:35 Dose: 4 unit Documented By: ILAN Co-signed By: BRAXTON Comments: Ok to give per Dr. Garcia Admin: 01/30/25 20:01 Dose: 3 unit Documented By: MARCO ANTONIO Co-signed By: ALEKSANDAR Admin: 01/30/25 17:38 Dose: 4 unit Documented By: Co-signed By: HANSA Admin: 01/30/25 12:11 Dose: 4 unit Documented By: Co-signed By: MARIO Admin: 01/30/25 08:23 Dose: 2 unit Documented By: Co-signed By: MARIO Admin: 01/29/25 20:25 Dose: 2 unit Documented By: MARCO ANTONIO Co-signed By: MALA Admin: 01/29/25 18:00 Dose: 3 unit Documented By: GILLES Co-signed By: BONI Admin: 01/29/25 11:11 Dose: Not Given Documented By: AC Non-Admin Reason: Per Protocol Admin: 01/29/25 08:27 Dose: Not Given Documented By: AC Non-Admin Reason: Per Protocol Admin: 01/28/25 20:08 Dose: Not Given Documented By: IG Non-Admin Reason: Per Protocol Admin: 01/28/25 16:42 Dose: Not Given Documented By: MM Non-Admin Reason: Per Protocol Admin: 01/28/25 12:17 Dose: Not Given Documented By: ILAN Non-Admin Reason: Per Protocol Admin: 01/28/25 08:20 Dose: Not Given Documented By: AC Non-Admin Reason: Per Protocol Admin: 01/27/25 20:05 Dose: Not Given Documented By: (2) Non-Admin Reason: Per Protocol Admin: 01/27/25 17:55 Dose: 1 unit Documented By: ILAN Co-signed By: KRIS Admin: 01/27/25 13:00 Dose: 1 unit Documented By: ILAN Co-signed By: KRIS Admin: 01/27/25 07:45 Dose: Not Given Documented By: ILAN Non-Admin Reason: Per Protocol Admin: 01/26/25 21:16 Dose: Not Given Documented By: ARAM Non-Admin Reason: Per Protocol Admin: 01/26/25 18:14 Dose: Not Given Documented By: HANSA Non-Admin Reason: Per Protocol Insulin Human Lispro (Insulin Lispro (Admelog) 1 Unit/0.01 Ml Unit) 0 unit SC Q6HR [facility]; Protocol Stop: 03/02/25 11:59 Last Admin: 02/02/25 05:56 Dose: 4 unit Documented By: Co-signed By: CONNOR(3) Admin: 02/02/25 00:20 Dose: 4 unit Documented By: Co-signed By: MATT Admin: 02/01/25 17:03 Dose: 2 unit Documented By: ALLEGRA Co-signed By: ANGEL Admin: 02/01/25 11:40 Dose: Not Given Documented By: [place] Non-Admin Reason: NPO Admin: 02/01/25 05:50 Dose: Not Given Documented By: MATT Non-Admin Reason: NPO Admin: 01/31/25 23:52 Dose: 2 unit Documented By: MATT Co-signed By: CONNOR(3) Admin: 01/31/25 17:45 Dose: Not Given Documented By: ALLEGRA Non-Admin Reason: NPO Admin: 01/31/25 16:07 Dose: Not Given Documented By: NJ Non-Admin Reason: NPO Insulin Human Lispro (Insulin Lispro (Admelog) 1 Unit/0.01 Ml Unit) 0 unit SC Q6HR [facility]; Protocol Stop: 03/02/25 11:59 Last Admin: 02/02/25 11:27 Dose: 6 unit Documented By: NYDIA Co-signed By: RICHARD Insulin Human Lispro (Insulin Lispro (Admelog) 1 Unit/0.01 Ml Unit) 0 unit SC Q6HR [facility]; Protocol Stop: 03/02/25 11:59 Insulin Human Lispro (Insulin Lispro (Admelog) 1 Unit/0.01 Ml Unit) 0 unit SC Q6HR [facility]; Protocol Stop: 03/04/25 15:50 Last Admin: 02/03/25 11:18 Dose: 6 unit Documented By: TASHA Co-signed By: weston Admin: 02/03/25 06:10 Dose: 6 unit Documented By: Co-signed By: MATT Admin: 02/03/25 00:22 Dose: 6 unit Documented By: Co-signed By: CONNOR(3) Admin: 02/02/25 17:16 Dose: Not Given Documented By: NYDIA Non-Admin Reason: 12u given @1614 Admin: 02/02/25 16:14 Dose: 6 unit Documented By: NYDIA Co-signed By: ANGEL Insulin Human Lispro (Insulin Lispro (Admelog) 1 Unit/0.01 Ml Unit) 5 unit SC X1 ONE Stop: 02/02/25 15:54 Last Admin: 02/02/25 16:13 Dose: 5 unit Documented By: NYDIA Co-signed By: ANGEL Insulin Human Regular (Insulin Hum Regular 1 Unit/0.01 Ml (Per Unit)) 10 unit IV X1 ONE Stop: 01/23/25 16:26 Last Admin: 01/23/25 18:39 Dose: 10 unit Documented By: SHANNAN Co-signed By: REUBEN Insulin Human Regular (Insulin Hum Regular 1 Unit/0.01 Ml (Per Unit)) 0 unit SC Q6HR PRN; Protocol PRN Reason: GLYCEMIC MANAGEMENT ON PN Stop: 02/28/25 16:25 Insulin Human Regular (Insulin Hum Regular 1 Unit/0.01 Ml (Per Unit)) 0 unit SC Q6HR [facility]; Protocol Stop: 03/05/25 14:14 Last Admin: 02/03/25 14:34 Dose: Not Given Documented By: CHEEM1 Non-Admin Reason: already given insulin at 12 Insulin Human Regular (Insulin Hum Regular 1 Unit/0.01 Ml (Per Unit)) 0 unit SC Q6HR [facility]; Protocol Stop: 03/05/25 14:14 Last Admin: 02/04/25 05:24 Dose: 5 unit Documented By: MELISSA Co-signed By: MATT(3) Admin: 02/03/25 23:46 Dose: 5 unit Documented By: MELISSA Co-signed By: CHARLES Comments: pt on ppn Admin: 02/03/25 17:05 Dose: 5 unit Documented By: TASHA Co-signed By: PP Insulin Human Regular (Insulin Hum Regular 1 Unit/0.01 Ml (Per Unit)) 6 unit SC Q6H [facility] Stop: 03/05/25 17:59 Last Admin: 02/04/25 05:24 Dose: 6 unit Documented By: MELISSA Co-signed By: MATT(3) Admin: 02/03/25 23:47 Dose: 6 unit Documented By: MELISSA Co-signed By: CHARLES Comments: on ppn Admin: 02/03/25 17:05 Dose: 6 unit Documented By: TASHA Co-signed By: PP Insulin Human Regular (Insulin Hum Regular 1 Unit/0.01 Ml (Per Unit)) 8 unit SC Q6HR [facility] Stop: 03/06/25 10:38 Last Admin: 02/05/25 11:41 Dose: 8 unit Documented By: СЕРГЕЙ Co-signed By: CRISTI Admin: 02/05/25 05:55 Dose: 8 unit Documented By: JUSTIN Co-signed By: VANESSA Admin: 02/04/25 23:21 Dose: 8 unit Documented By: JUSTIN Co-signed By: CG Admin: 02/04/25 17:36 Dose: 8 unit Documented By: СЕРГЕЙ Co-signed By: RACILE Admin: 02/04/25 12:20 Dose: 8 unit Documented By: СЕРГЕЙ Co-signed By: [email or web address] Insulin Human Regular (Insulin Hum Regular 1 Unit/0.01 Ml (Per Unit)) 0 unit SC Q6HR [facility]; Protocol Stop: 03/05/25 14:14 Last Admin: 02/08/25 11:59 Dose: 5 unit Documented By: SELENE Co-signed By: KRIS Admin: 02/08/25 05:32 Dose: 4 unit Documented By: REKHA Co-signed By: MALA Admin: 02/07/25 23:32 Dose: Not Given Documented By: REKHA Non-Admin Reason: Per Protocol Admin: 02/07/25 18:16 Dose: 3 unit Documented By: ROMULO Co-signed By: ANGEL Admin: 02/07/25 12:07 Dose: 5 unit Documented By: ROMULO Co-signed By: ANGEL Admin: 02/07/25 05:58 Dose: 5 unit Documented By: JOSE Co-signed By: ALEKSANDAR Admin: 02/06/25 23:28 Dose: Not Given Documented By: JOSE Non-Admin Reason: Per Protocol Admin: 02/06/25 17:37 Dose: Not Given Documented By: DILIA Non-Admin Reason: Per Protocol Admin: 02/06/25 12:14 Dose: 4 unit Documented By: DILIA Co-signed By: DIEGO Admin: 02/06/25 05:47 Dose: 4 unit Documented By: CONNOR(2) Co-signed By: CHIP Admin: 02/06/25 00:47 Dose: 4 unit Documented By: CONNOR(2) Co-signed By: (2) Admin: 02/05/25 18:03 Dose: 5 unit Documented By: СЕРГЕЙ Co-signed By: RICHARD Admin: 02/05/25 11:42 Dose: 6 unit Documented By: СЕРГЕЙ Co-signed By: CRISTI Admin: 02/05/25 05:55 Dose: 5 unit Documented By: JUSTIN Co-signed By: VANESSA Admin: 02/04/25 23:21 Dose: 5 unit Documented By: JUSTIN Co-signed By: ROBBIN Admin: 02/04/25 17:37 Dose: 6 unit Documented By: СЕРГЕЙ Co-signed By: RACIEL Admin: 02/04/25 12:21 Dose: 6 unit Documented By: СЕРГЕЙ Co-signed By: [email or web address] Insulin Human Regular (Insulin Hum Regular 1 Unit/0.01 Ml (Per Unit)) 11 unit SC Q6HR [facility] Stop: 03/07/25 17:59 Last Admin: 02/08/25 12:03 Dose: 11 unit Documented By: SELENE Co-signed By: KRIS Admin: 02/08/25 05:32 Dose: 11 unit Documented By: REKHA Co-signed By: MALA Admin: 02/07/25 23:41 Dose: 11 unit Documented By: REKHA Co-signed By: MALA Comments: Per dr hernandez ok to give diagnostic medical sonographer: 02/07/25 18:16 Dose: 11 unit Documented By: ROMULO Co-signed By: ANGEL Admin: 02/07/25 12:07 Dose: 11 unit Documented By: ROMULO Co-signed By: ANGEL Admin: 02/07/25 05:32 Dose: 11 unit Documented By: JOSE Co-signed By: ALEKSANDAR Admin: 02/06/25 23:38 Dose: Not Given Documented By: JOSE Non-Admin Reason: MD Villalobos stated to hold Admin: 02/06/25 17:39 Dose: Not Given Documented By: DILIA Non-Admin Reason: per hold for now Admin: 02/06/25 12:15 Dose: 11 unit Documented By: DILIA Co-signed By: DIEGO Admin: 02/06/25 05:47 Dose: 11 unit Documented By: CONNOR(2) Co-signed By: CHIP Admin: 02/06/25 00:46 Dose: 11 unit Documented By: CONNOR(2) Co-signed By: HILARY2) Admin: 02/05/25 18:03 Dose: 11 unit Documented By: СЕРГЕЙ Co-signed By: LH Insulin Human Regular (Insulin Hum Regular 1 Unit/0.01 Ml (Per Unit)) 12 unit SC Q6HR [facility] Stop: 03/10/25 17:59 Last Admin: 02/10/25 12:09 Dose: 12 unit Documented By: KRIS Co-signed By: PARMJIT Admin: 02/10/25 05:47 Dose: 12 unit Documented By: REKHA Co-signed By: ARAM Admin: 02/09/25 23:11 Dose: 12 unit Documented By: REKHA Co-signed By: ARAM Admin: 02/09/25 17:54 Dose: 12 unit Documented By: KRIS Co-signed By: MARIO Admin: 02/09/25 11:57 Dose: 12 unit Documented By: KRIS Co-signed By: Admin: 02/09/25 05:24 Dose: 12 unit Documented By: REKHA Co-signed By: MALA Admin: 02/08/25 23:16 Dose: 12 unit Documented By: REKHA Co-signed By: MALA Admin: 02/08/25 18:24 Dose: Not Given Documented By: CP Non-Admin Reason: Per Protocol Insulin Human Regular (Insulin Hum Regular 1 Unit/0.01 Ml (Per Unit)) 0 unit SC Q6HR [facility]; Protocol Stop: 03/05/25 14:14 Last Admin: 02/09/25 12:00 Dose: 3 unit Documented By: KRIS Co-signed By: Admin: 02/09/25 05:25 Dose: 2 unit Documented By: REKHA Co-signed By: MALA Admin: 02/08/25 23:17 Dose: 3 unit Documented By: REKHA Co-signed By: MALA Admin: 02/08/25 18:25 Dose: Not Given Documented By: CP Non-Admin Reason: Per Protocol Comments: low glucose Insulin Human Regular (Insulin Hum Regular 1 Unit/0.01 Ml (Per Unit)) 0 unit SC Q6HR [facility]; Protocol Stop: 03/05/25 14:14 Last Admin: 02/12/25 07:27 Dose: Not Given Documented By: SELENE Non-Admin Reason: Per Protocol Comments: NOC Nurse didn't give Admin: 02/12/25 00:00 Dose: Not Given Documented By: MEENAKSHI Non-Admin Reason: Per Protocol Admin: 02/11/25 17:34 Dose: 5 unit Documented By: SELENE Co-signed By: GILLES Admin: 02/11/25 12:33 Dose: 5 unit Documented By: SELENE Co-signed By: DILIA Admin: 02/11/25 05:17 Dose: 3 unit Documented By: (2) Co-signed By: SHILA Admin: 02/10/25 23:44 Dose: 5 unit Documented By: (2) Co-signed By: DEVEN Admin: 02/10/25 17:34 Dose: 5 unit Documented By: KRIS Co-signed By: ILAN Admin: 02/10/25 12:09 Dose: 5 unit Documented By: KRIS Co-signed By: PARMJIT Admin: 02/10/25 05:47 Dose: 3 unit Documented By: REKHA Co-signed By: ARAM Admin: 02/09/25 23:11 Dose: 4 unit Documented By: REKHA Co-signed By: ARAM Admin: 02/09/25 17:55 Dose: 5 unit Documented By: KRIS Co-signed By: MARIO Insulin Human Regular (Insulin Hum Regular 1 Unit/0.01 Ml (Per Unit)) 14 unit SC Q6HR [facility] Stop: 03/12/25 17:59 Last Admin: 02/13/25 05:51 Dose: Not Given Documented By: MARJORIE Non-Admin Reason: Per Protocol Admin: 02/12/25 23:42 Dose: 14 unit Documented By: CHARLES Co-signed By: MALA Admin: 02/12/25 17:33 Dose: 14 unit Documented By: SELENE Co-signed By: Admin: 02/12/25 12:54 Dose: 14 unit Documented By: SELENE Co-signed By: Admin: 02/12/25 05:37 Dose: 14 unit Documented By: MEENAKSHI Co-signed By: MATTEO Admin: 02/12/25 02:55 Dose: Not Given Documented By: MEENAKSHI Non-Admin Reason: Per Protocol Admin: 02/11/25 17:32 Dose: 14 unit Documented By: SELENE Co-signed By: GILLES Admin: 02/11/25 12:32 Dose: 14 unit Documented By: SELENE Co-signed By: DILIA Admin: 02/11/25 05:17 Dose: 14 unit Documented By: HILARY2) Co-signed By: WB Admin: 02/10/25 23:45 Dose: 14 unit Documented By: (2) Co-signed By: DEVEN Admin: 02/10/25 17:33 Dose: 14 unit Documented By: KRIS Co-signed By: XIONM Insulin Human Regular (Insulin Hum Regular 1 Unit/0.01 Ml (Per Unit)) 0 unit SC Q6HR [facility]; Protocol Stop: 03/05/25 14:14 Last Admin: 02/13/25 05:49 Dose: Not Given Documented By: MARJORIE Non-Admin Reason: Per Protocol Admin: 02/12/25 23:38 Dose: Not Given Documented By: CHARLES Non-Admin Reason: per protocol / scale bg 152 Admin: 02/12/25 17:34 Dose: 1 unit Documented By: SELENE Co-signed By: Admin: 02/12/25 12:55 Dose: 1 unit Documented By: SELENE Co-signed By: Insulin Human Regular (Insulin Hum Regular 1 Unit/0.01 Ml (Per Unit)) [address] [facility] Stop: 03/15/25 11:29 Last Admin: 02/13/25 17:12 Dose: Not Given Documented By: RACIEL Non-Admin Reason: blood sugar 36 Admin: 02/13/25 12:00 Dose: 14 unit Documented By: ADELINA Co-signed By: VICENTE Insulin Human Regular (Insulin Hum Regular 1 Unit/0.01 Ml (Per Unit)) [address] [facility]; Protocol Stop: 03/14/25 10:26 Last Admin: 02/15/25 12:28 Dose: 3 unit Documented By: BRAXTON Co-signed By: ALLEGRA Admin: 02/15/25 07:05 Dose: Not Given Documented By: BRAXTON Non-Admin Reason: Per Protocol Admin: 02/14/25 17:11 Dose: 1 unit Documented By: ANGEL Co-signed By: MARIO Admin: 02/14/25 11:29 Dose: Not Given Documented By: CL Non-Admin Reason: Per Protocol Admin: 02/14/25 07:55 Dose: Not Given Documented By: CL Non-Admin Reason: Per Protocol Admin: 02/13/25 17:11 Dose: Not Given Documented By: RACIEL Non-Admin Reason: blood sugar 36 Admin: 02/13/25 12:01 Dose: 2 unit Documented By: ADELINA Co-signed By: VICENTE Insulin Human Regular (Insulin Hum Regular 1 Unit/0.01 Ml (Per Unit)) [address] [facility] Stop: 03/16/25 07:29 Last Admin: 02/14/25 11:35 Dose: Not Given Documented By: ANGEL Non-Admin Reason: Cancelled by Provider Admin: 02/14/25 07:55 Dose: Not Given Documented By: SC Non-Admin Reason: Per Ipratropium [place] (Ipratropium Rt 0.5 Mg/ 2.5 Ml Nebu) 0.5 mg INH X1 ONE Stop: 01/24/25 19:04 Last Admin: 01/24/25 19:44 Dose: 0.5 mg Documented By: REINA Ipratropium [place] (Ipratropium Rt 0.5 Mg/ 2.5 Ml Nebu) 0.5 mg INH Q6HR PRN; Protocol PRN Reason: SHORTNESS OF BREATH Stop: 02/23/25 19:02 Labetalol HCl (Labetalol Inj 5 Mg/Ml Vial 20 Ml) 10 mg IVP Q3HR PRN PRN Reason: Systolic >180 and HR >75 Stop: 02/25/25 11:52 Lactulose (Lactulose Syrup 20 Gm/30 Ml Udc) 20 gm PO TID [facility]; Protocol Stop: 03/14/25 10:29 Last Admin: 02/15/25 05:24 Dose: 20 gm Documented By: Admin: 02/14/25 21:24 Dose: 20 gm Documented By: Admin: 02/14/25 14:07 Dose: 20 gm Documented By: Admin: 02/14/25 05:06 Dose: 20 gm Documented By: Admin: 02/13/25 21:20 Dose: 20 gm Documented By: Admin: 02/13/25 13:36 Dose: Not Given Documented By: RACIEL Non-Admin Reason: pt refused Admin: 02/13/25 05:41 Dose: 20 gm Documented By: Admin: 02/12/25 21:46 Dose: Not Given Documented By: CHARLES Non-Admin Reason: diarrhea >3x Admin: 02/12/25 14:26 Dose: 20 gm Documented By: Admin: 02/12/25 11:38 Dose: 20 gm Documented By: SELENE Levalbuterol HCl (Levalbuterol Rt 0.63 Mg/3 Ml Nebu) 0.63 mg INH X1 ONE Stop: 01/24/25 18:49 Last Admin: 01/24/25 19:44 Dose: 0.63 mg Documented By: REINA Levalbuterol HCl (Levalbuterol Rt 0.63 Mg/3 Ml Nebu) 0.63 mg INH Q6HR PRN PRN Reason: WHEEZING Stop: 02/23/25 18:47 Lidocaine HCl (Lidocaine Inj Pf 1% 30 Ml Vial) Confirm Administered Dose 30 ml .ROUTE .STK-MED ONE Stop: 02/06/25 15:36 Last Admin: 02/06/25 15:48 Dose: Not Given Documented By: EC Non-Admin Reason: Duplicate Medication on eMAR Lidocaine HCl (Lidocaine Inj Pf 1% 30 Ml Vial) 30 ml INFL X1 ONE Stop: 02/06/25 15:36 Last Admin: 02/06/25 15:35 Dose: 30 ml Documented By: EC Comments: placed on sterile field Lidocaine HCl (Lidocaine Inj Pf 1% 30 Ml Vial) 30 ml INFL X1 ONE Stop: 02/07/25 14:37 Last Admin: 02/07/25 15:00 Dose: 30 ml Documented By: EC Lidocaine HCl (Lidocaine Inj Pf 1% 30 Ml Vial) Confirm Administered Dose 30 ml .ROUTE .STK-MED ONE Stop: 02/07/25 15:07 Last Admin: 02/07/25 15:16 Dose: Not Given Documented By: CU Non-Admin Reason: Override Medication Lisinopril (Lisinopril 2.5 Mg Tablet) 10 mg PO QDAY [facility] Stop: 02/09/25 12:00 Last Admin: 02/09/25 09:28 Dose: 10 mg Documented By: Admin: 02/08/25 09:23 Dose: 10 mg Documented By: Admin: 02/07/25 08:31 Dose: 10 mg Documented By: Admin: 02/06/25 08:43 Dose: 10 mg Documented By: Admin: 02/05/25 08:27 Dose: 10 mg Documented By: СЕРГЕЙ Admin: 02/04/25 11:11 Dose: 10 mg Documented By: AALIYAH Lisinopril (Lisinopril 20 Mg Tablet) 10 mg PO QDAY [facility] Stop: 03/12/25 08:59 Last Admin: 02/15/25 09:10 Dose: 10 mg Documented By: Admin: 02/14/25 09:05 Dose: 10 mg Documented By: Admin: 02/13/25 10:02 Dose: 10 mg Documented By: Admin: 02/12/25 10:14 Dose: 10 mg Documented By: Admin: 02/11/25 08:24 Dose: 10 mg Documented By: Admin: 02/10/25 09:43 Dose: 10 mg Documented By: KRIS Magnesium Hydroxide (Milk Of Magnesia Susp 30 Ml Udc) 30 ml PO X1 ONE; Protocol Stop: 02/09/25 14:51 Last Admin: 02/09/25 15:19 Dose: 30 ml Documented By: KRIS Magnesium Oxide (Magnesium Oxide 400 Mg Tablet) 400 mg PO X1 ONE Stop: 01/30/25 08:31 Last Admin: 01/30/25 09:20 Dose: 400 mg Documented By: Metoclopramide HCl (Metoclopramide 5 Mg Tablet) 5 mg PO Q8HR PRN; Protocol PRN Reason: NAUSEA OR VOMITING Stop: 02/28/25 17:02 Metoclopramide HCl (Metoclopramide 5 Mg Tablet) 10 mg PO X1 ONE Stop: 01/29/25 17:08 Last Admin: 01/29/25 18:10 Dose: 10 mg Documented By: GILLES Metoclopramide HCl (Metoclopramide Liqd 10 Mg/10 Ml Udc) 10 mg PO ACHS [facility] Stop: 03/01/25 11:29 Metoclopramide HCl (Metoclopramide Inj 5 Mg/Ml Vial 2 Ml) 5 mg IVP Q12HR [facility]; Protocol Stop: 03/03/25 20:59 Last Admin: 02/09/25 09:20 Dose: 5 mg Documented By: Admin: 02/08/25 20:24 Dose: 5 mg Documented By: Admin: 02/08/25 09:27 Dose: 5 mg Documented By: Admin: 02/07/25 20:21 Dose: 5 mg Documented By: Admin: 02/07/25 08:33 Dose: 5 mg Documented By: Admin: 02/06/25 20:45 Dose: 5 mg Documented By: Admin: 02/06/25 08:41 Dose: 5 mg Documented By: Admin: 02/05/25 20:26 Dose: 5 mg Documented By: Admin: 02/05/25 08:27 Dose: 5 mg Documented By: Admin: 02/04/25 20:11 Dose: 5 mg Documented By: Admin: 02/04/25 10:58 Dose: 5 mg Documented By: Admin: 02/03/25 20:30 Dose: 5 mg Documented By: Admin: 02/03/25 08:44 Dose: 5 mg Documented By: GRIS1 Admin: 02/02/25 22:20 Dose: 5 mg Documented By: Admin: 02/02/25 08:51 Dose: 5 mg Documented By: Admin: 02/01/25 20:18 Dose: 5 mg Documented By: Metoclopramide HCl (Metoclopramide Inj 5 Mg/Ml Vial 2 Ml) 5 mg IVP TID [facility]; Protocol Stop: 03/11/25 14:59 Last Admin: 02/15/25 05:24 Dose: 5 mg Documented By: Admin: 02/14/25 21:24 Dose: 5 mg Documented By: Admin: 02/14/25 17:07 Dose: 5 mg Documented By: Admin: 02/14/25 05:05 Dose: 5 mg Documented By: Admin: 02/13/25 21:18 Dose: 5 mg Documented By: Admin: 02/13/25 13:36 Dose: 5 mg Documented By: Admin: 02/13/25 05:40 Dose: 5 mg Documented By: Admin: 02/12/25 21:34 Dose: 5 mg Documented By: Admin: 02/12/25 14:26 Dose: 5 mg Documented By: Admin: 02/12/25 05:37 Dose: 5 mg Documented By: Admin: 02/11/25 20:51 Dose: 5 mg Documented By: Admin: 02/11/25 13:53 Dose: 5 mg Documented By: SELENE Comments: Admin: 02/11/25 05:18 Dose: 5 mg Documented By: (2) Admin: 02/10/25 20:52 Dose: 5 mg Documented By: (2) Admin: 02/10/25 15:41 Dose: 5 mg Documented By: Admin: 02/10/25 05:47 Dose: 5 mg Documented By: Admin: 02/09/25 21:02 Dose: 5 mg Documented By: Admin: 02/09/25 15:19 Dose: 5 mg Documented By: KRIS Midazolam HCl (Midazolam Inj 1 Mg/Ml Vial 2 Ml) 2 mg IVP Q2M PRN PRN Reason: Moderate Sedation Stop: 01/31/25 16:47 Midazolam HCl (Midazolam Inj 1 Mg/Ml Vial 2 Ml) Confirm Administered Dose 4 mg .ROUTE .STK-MED ONE Stop: 01/31/25 15:13 Midazolam HCl (Midazolam Inj 1 Mg/Ml Vial 2 Ml) Confirm Administered Dose 4 mg .ROUTE .STK-MED ONE Stop: 02/01/25 13:18 Midazolam HCl (Midazolam Inj 1 Mg/Ml Vial 2 Ml) 2 mg IVP Q2M PRN PRN Reason: Moderate Sedation Stop: 02/01/25 15:32 Multivitamins/Minerals (Multivitamin 15 Ml Udc) 15 ml PO QDAY ELVIA Stop: 02/27/25 11:14 Last Admin: 02/03/25 08:44 Dose: 15 ml Documented By: Admin: 02/02/25 08:50 Dose: 15 ml Documented By: Admin: 02/01/25 08:21 Dose: Not Given Documented By: [place] Non-Admin Reason: NPO Admin: 01/31/25 08:36 Dose: 15 ml Documented By: Admin: 01/30/25 08:21 Dose: 15 ml Documented By: Admin: 01/29/25 08:27 Dose: 15 ml Documented By: Admin: 01/28/25 12:20 Dose: 15 ml Documented By: ILAN Multivitamins/Minerals (Multivitamin 15 Ml Udc) 15 ml PO QDAY [facility] Stop: 02/27/25 11:14 Last Admin: 02/15/25 09:11 Dose: 15 ml Documented By: Admin: 02/14/25 11:44 Dose: 15 ml Documented By: VICENTE Ondansetron HCl (Ondansetron Inj 2 Mg/Ml Inj 2 Ml) 4 mg IVP Q6H PRN; Protocol PRN Reason: NAUSEA OR VOMITING Stop: 02/22/25 21:12 Last Admin: 01/27/25 09:55 Dose: 4 mg Documented By: Admin: 01/24/25 04:49 Dose: 4 mg Documented By: [email or web address] Ondansetron HCl (Ondansetron Inj 2 Mg/Ml Inj 2 Ml) 4 mg IVP X1 ONE; Protocol Stop: 01/24/25 09:42 Last Admin: 01/24/25 09:45 Dose: 4 mg Documented By: DILIA Ondansetron HCl (Ondansetron Inj 2 Mg/Ml Inj 2 Ml) Confirm Administered Dose 4 mg .ROUTE .STK-MED ONE Stop: 01/24/25 12:42 Ondansetron HCl (Ondansetron Odt 4 Mg Tabrap) 4 mg PO Q8HR PRN; Protocol PRN Reason: NAUSEA OR VOMITING Stop: 02/27/25 11:11 Last Admin: 01/29/25 10:52 Dose: 4 mg Documented By: Admin: 01/28/25 14:52 Dose: 4 mg Documented By: ILAN Ondansetron HCl (Ondansetron Odt 4 Mg Tabrap) 4 mg PO Q6HR PRN; Protocol PRN Reason: NAUSEA OR VOMITING Stop: 02/27/25 11:11 Last Admin: 02/06/25 17:34 Dose: 4 mg Documented By: Admin: 02/06/25 07:53 Dose: 4 mg Documented By: Admin: 02/04/25 15:42 Dose: 4 mg Documented By: СЕРГЕЙ Admin: 01/31/25 04:27 Dose: 4 mg Documented By: IG Oxycodone/Acetaminophen (Oxycodone/Apap 5/325 Tablet) 1 tab PO Q6HR PRN PRN Reason: PAIN SCALE 4-10(Mod-Sev Stop: 02/02/25 11:11 Pantoprazole Sodium (Pantoprazole Inj 40 Mg Vial) 40 mg IVP QDAY [facility] Stop: 02/23/25 07:14 Last Admin: 01/24/25 09:08 Dose: Not Given Documented By: DILIA Non-Admin Reason: duplicate order Comments: not given Admin: 01/24/25 07:28 Dose: 40 mg Documented By: DILIA Pantoprazole Sodium (Pantoprazole Inj 40 Mg Vial) 40 mg IVP BID [facility] Stop: 02/24/25 08:59 Last Admin: 02/15/25 09:12 Dose: 40 mg Documented By: Admin: 02/14/25 21:24 Dose: 40 mg Documented By: Admin: 02/14/25 09:56 Dose: 40 mg Documented By: SC Admin: 02/13/25 20:32 Dose: 40 mg Documented By: Admin: 02/13/25 10:35 Dose: 40 mg Documented By: Admin: 02/12/25 21:34 Dose: 40 mg Documented By: Admin: 02/12/25 10:12 Dose: 40 mg Documented By: SELENE Comments: late due to multiple pt. meds Admin: 02/11/25 20:50 Dose: 40 mg Documented By: Admin: 02/11/25 08:23 Dose: 40 mg Documented By: Admin: 02/10/25 20:38 Dose: 40 mg Documented By: (2) Admin: 02/10/25 09:42 Dose: 40 mg Documented By: Admin: 02/09/25 21:02 Dose: 40 mg Documented By: Admin: 02/09/25 09:18 Dose: 40 mg Documented By: Admin: 02/08/25 20:24 Dose: 40 mg Documented By: Admin: 02/08/25 09:26 Dose: 40 mg Documented By: Admin: 02/07/25 20:20 Dose: 40 mg Documented By: Admin: 02/07/25 08:32 Dose: 40 mg Documented By: Admin: 02/06/25 20:48 Dose: 40 mg Documented By: [email or web address] Admin: 02/06/25 08:42 Dose: 40 mg Documented By: Admin: 02/05/25 20:27 Dose: 40 mg Documented By: Admin: 02/05/25 08:27 Dose: 40 mg Documented By: Admin: 02/04/25 20:12 Dose: 40 mg Documented By: Admin: 02/04/25 10:51 Dose: 40 mg Documented By: Admin: 02/03/25 20:30 Dose: 40 mg Documented By: Admin: 02/03/25 08:43 Dose: 40 mg Documented By: [email or web address] Admin: 02/02/25 22:21 Dose: 40 mg Documented By: Admin: 02/02/25 08:51 Dose: 40 mg Documented By: Admin: 02/01/25 20:20 Dose: 40 mg Documented By: Admin: 02/01/25 08:21 Dose: 40 mg Documented By: Admin: 01/31/25 23:49 Dose: 40 mg Documented By: Admin: 01/31/25 08:35 Dose: 40 mg Documented By: Admin: 01/30/25 20:01 Dose: 40 mg Documented By: Admin: 01/30/25 08:22 Dose: 40 mg Documented By: Admin: 01/29/25 20:24 Dose: 40 mg Documented By: Admin: 01/29/25 08:28 Dose: 40 mg Documented By: Admin: 01/28/25 20:10 Dose: 40 mg Documented By: Admin: 01/28/25 09:40 Dose: 40 mg Documented By: Admin: 01/27/25 20:05 Dose: 40 mg Documented By: SA(2) Admin: 01/27/25 08:41 Dose: 40 mg Documented By: Admin: 01/26/25 21:33 Dose: 40 mg Documented By: Admin: 01/26/25 09:13 Dose: 40 mg Documented By: keily Admin: 01/25/25 21:34 Dose: 40 mg Documented By: Admin: 01/25/25 09:24 Dose: 40 mg Documented By: Pharmacy Consult (Vancomycin Pharmacy To Dose 1 Each Each) 1 each IV QDAY ONE Stop: 01/23/25 21:09 Last Admin: 01/23/25 21:27 Dose: Not Given Documented By: LINA Non-Admin Reason: Cancelled by Provider Phenylephrine HCl (Phenylephrine Inj In Ns 100 Mcg/Ml 10 Ml Syringe) Confirm Administered Dose 1,000 mcg .ROUTE .STK-MED ONE Stop: 01/24/25 13:51 Polyethylene Glycol (Polyethylene Glycol 17 Gm Packet) 17 gm PO QDAY [facility] Stop: 03/11/25 08:59 Last Admin: 02/09/25 09:29 Dose: 17 gm Documented By: KRIS Polyethylene Glycol (Polyethylene Glycol 17 Gm Packet) 17 gm PO X1 ONE Stop: 02/08/25 14:12 Last Admin: 02/08/25 15:33 Dose: 17 gm Documented By: SELENE Comments: late due to new order Polyethylene Glycol (Polyethylene Glycol 17 Gm Packet) 34 gm PO QDAY [facility] Stop: 03/12/25 08:59 Last Admin: 02/15/25 09:25 Dose: Not Given Documented By: BRAXTON Non-Admin Reason: Patient Refused Admin: 02/14/25 09:17 Dose: Not Given Documented By: ADELINA Non-Admin Reason: Patient Refused Admin: 02/13/25 10:04 Dose: Not Given Documented By: CL Non-Admin Reason: Change of Condition Admin: 02/12/25 10:10 Dose: 34 gm Documented By: SELENE Comments: late due to multiple pt. meds Admin: 02/11/25 08:25 Dose: 34 gm Documented By: Admin: 02/10/25 09:41 Dose: 34 gm Documented By: KRIS Polyethylene Glycol/Electrolytes (Na Castillo/Nahco3/Maynor/Peg (Golytely) 4,000 Ml Btl) 4,000 ml NG X1 ONE Stop: 02/05/25 14:24 Last Admin: 02/05/25 16:49 Dose: 4,000 ml Documented By: СЕРГЕЙ Potassium Phos/Sodium Phos (Naph,[facility] Mbdb 1 Packet (1.5 Gm)) 1 packet PO X1 ONE Stop: 01/27/25 09:07 Last Admin: 01/27/25 09:55 Dose: 1 packet Documented By: ILAN Propofol (Propofol Inj 10 Mg/Ml Vial 20 Ml) Confirm Administered Dose 200 mg IV .STK-MED ONE Stop: 01/24/25 12:42 Rocuronium [place] (Rocuronium Inj 10 Mg/Ml Vial 10 Ml) Confirm Administered Dose 100 mg .ROUTE .STK-MED ONE Stop: 01/24/25 12:42 Sennosides (Senna/Docusate Sod 1 Tab Tablet) 2 tab PO QDAY [facility]; Protocol Stop: 03/12/25 10:44 Last Admin: 02/15/25 09:10 Dose: 2 tab Documented By: Admin: 02/14/25 09:00 Dose: 2 tab Documented By: Admin: 02/13/25 10:04 Dose: Not Given Documented By: VICENTE Non-Admin Reason: loose stools Admin: 02/12/25 10:13 Dose: 2 tab Documented By: SELENE Comments: late due to multiple pt. meds Admin: 02/11/25 08:23 Dose: 2 tab Documented By: Admin: 02/10/25 12:08 Dose: 2 tab Documented By: KRIS Sevelamer Carbonate (Sevelamer Carbonate 800 Mg Tablet) 400 mg PO X1 ONE Stop: 01/23/25 21:20 Last Admin: 01/23/25 22:03 Dose: Not Given Documented By: LINA Non-Admin Reason: Cancelled by Provider Sodium Bicarbonate (Sodium Bicarb Inj 8.4% Syr 50 Ml Syringe) 50 ml IV Q4HR PRN PRN Reason: For ph <= to 7.0 Stop: 02/22/25 21:12 Sodium Chloride (Sodium Chloride Rt 10% 15 Ml Nebu) 5 ml INH X1 ONE Stop: 01/24/25 16:57 Last Admin: 01/24/25 17:46 Dose: Not Given Documented By: DILIA Non-Admin Reason: RT task Sodium Chloride (Sodium Chloride Rt Radha 0.9% 3 Ml Nebu) 3 ml INH PRN PRN PRN Reason: SOLN Stop: 02/23/25 18:49 Sodium Polystyrene Sulfonate (Sod Polystyrene Sulfon Susp 15 Gm/60 Ml Btl) 30 gm PO X1 ONE Stop: 01/23/25 16:26 Last Admin: 01/23/25 19:25 Dose: 30 gm Documented By: LINA Spironolactone (Spironolactone 25 Mg Tablet) 100 mg PO X1 ONE Stop: 01/28/25 08:21 Last Admin: 01/28/25 09:39 Dose: 100 mg Documented By: ILAN Spironolactone (Spironolactone 25 Mg Tablet) 100 mg PO X1 ONE Stop: 01/29/25 08:25 Last Admin: 01/29/25 09:04 Dose: 100 mg Documented By: GILLES Sucralfate (Sucralfate Susp 1 Gm/10 Ml Udc) 1 gm PO ACHS [facility] Stop: 03/06/25 11:29 Last Admin: 02/15/25 12:28 Dose: 1 gm Documented By: Admin: 02/15/25 08:20 Dose: 1 gm Documented By: Admin: 02/14/25 21:24 Dose: 1 gm Documented By: Admin: 02/14/25 17:07 Dose: 1 gm Documented By: Admin: 02/14/25 11:44 Dose: 1 gm Documented By: Admin: 02/14/25 07:47 Dose: 1 gm Documented By: Admin: 02/13/25 20:32 Dose: 1 gm Documented By: Admin: 02/13/25 17:58 Dose: Not Given Documented By: RACIEL Non-Admin Reason: pt refused, c/o of nausea after dextrose Admin: 02/13/25 12:09 Dose: 1 gm Documented By: Admin: 02/13/25 07:29 Dose: 1 gm Documented By: Admin: 02/12/25 21:34 Dose: 1 gm Documented By: Admin: 02/12/25 17:33 Dose: 1 gm Documented By: Admin: 02/12/25 11:38 Dose: 1 gm Documented By: Admin: 02/12/25 07:28 Dose: 1 gm Documented By: Admin: 02/11/25 20:50 Dose: 1 gm Documented By: Admin: 02/11/25 17:31 Dose: 1 gm Documented By: Admin: 02/11/25 12:32 Dose: 1 gm Documented By: Admin: 02/11/25 08:23 Dose: 1 gm Documented By: SELENE Comments: late due to multiple meds Admin: 02/10/25 20:38 Dose: 1 gm Documented By: (2) Admin: 02/10/25 17:02 Dose: 1 gm Documented By: Admin: 02/10/25 12:08 Dose: 1 gm Documented By: Admin: 02/10/25 07:19 Dose: 1 gm Documented By: Admin: 02/09/25 21:02 Dose: 1 gm Documented By: Admin: 02/09/25 17:54 Dose: 1 gm Documented By: JRDeni Admin: 02/09/25 11:18 Dose: 1 gm Documented By: JRDeni Admin: 02/09/25 07:34 Dose: 1 gm Documented By: R Admin: 02/08/25 20:24 Dose: 1 gm Documented By: Admin: 02/08/25 17:00 Dose: 1 gm Documented By: Admin: 02/08/25 11:37 Dose: 1 gm Documented By: Admin: 02/08/25 09:21 Dose: 1 gm Documented By: Admin: 02/07/25 20:20 Dose: 1 gm Documented By: Admin: 02/07/25 17:55 Dose: 1 gm Documented By: Admin: 02/07/25 12:06 Dose: 1 gm Documented By: Admin: 02/07/25 08:31 Dose: 1 gm Documented By: Admin: 02/06/25 20:45 Dose: 1 gm Documented By: [email or web address] Admin: 02/06/25 17:34 Dose: 1 gm Documented By: Admin: 02/06/25 12:14 Dose: 1 gm Documented By: Admin: 02/06/25 07:53 Dose: 1 gm Documented By: Admin: 02/05/25 20:27 Dose: Not Given Documented By: JUSTIN Non-Admin Reason: NPO Admin: 02/05/25 16:53 Dose: Not Given Documented By: DA Non-Admin Reason: NPO Admin: 02/05/25 11:33 Dose: Not Given Documented By: СЕРГЕЙ Non-Admin Reason: NPO Admin: 02/05/25 07:36 Dose: 1 gm Documented By: СЕРГЕЙ Admin: 02/04/25 20:12 Dose: 1 gm Documented By: Admin: 02/04/25 17:36 Dose: 1 gm Documented By: СЕРГЕЙ Admin: 02/04/25 12:20 Dose: 1 gm Documented By: СЕРГЕЙ Sugammadex Sodium (Sugammadex Inj 100 Mg/Ml 2ml Vial) Confirm Administered Dose 200 mg .ROUTE .STK-MED ONE Stop: 01/24/25 12:42 Thiamine HCl (Thiamine 100 Mg Tablet) 100 mg PO QDAY [facility] Stop: 02/27/25 16:29 Last Admin: 02/15/25 09:10 Dose: 100 mg Documented By: Admin: 02/14/25 09:03 Dose: 100 mg Documented By: Admin: 02/13/25 10:02 Dose: 100 mg Documented By: Admin: 02/12/25 10:14 Dose: 100 mg Documented By: SELENE Comments: late due to multiple pt. meds Admin: 02/11/25 08:25 Dose: 100 mg Documented By: Admin: 02/10/25 09:43 Dose: 100 mg Documented By: Admin: 02/09/25 09:28 Dose: 100 mg Documented By: Admin: 02/08/25 09:21 Dose: 100 mg Documented By: Admin: 02/07/25 08:33 Dose: 100 mg Documented By: Admin: 02/06/25 08:44 Dose: 100 mg Documented By: Admin: 02/05/25 08:26 Dose: 100 mg Documented By: СЕРГЕЙ Admin: 02/04/25 11:11 Dose: 100 mg Documented By: Admin: 02/03/25 08:42 Dose: 100 mg Documented By: Admin: 02/02/25 09:07 Dose: 100 mg Documented By: Admin: 02/01/25 08:21 Dose: Not Given Documented By: NJ Non-Admin Reason: NPO Admin: 01/31/25 08:36 Dose: 100 mg Documented By: Admin: 01/30/25 08:21 Dose: 100 mg Documented By: Admin: 01/29/25 08:32 Dose: 100 mg Documented By: Admin: 01/28/25 17:35 Dose: 100 mg Documented By: XIONM Vitamin B Complex/Vit C/Folic Acid (Vitamin B Complex Tablet) 1 tab PO QDAY [facility] Stop: 02/27/25 16:29 Last Admin: 02/15/25 09:10 Dose: 1 tab Documented By: Admin: 02/14/25 09:02 Dose: 1 tab Documented By: Admin: 02/13/25 10:02 Dose: 1 tab Documented By: Admin: 02/12/25 10:19 Dose: 1 tab Documented By: SELENE Comments: late due to multiple pt meds Admin: 02/11/25 08:25 Dose: 1 tab Documented By: Admin: 02/10/25 09:44 Dose: 1 tab Documented By: Admin: 02/09/25 09:29 Dose: 1 tab Documented By: Admin: 02/08/25 09:26 Dose: 1 tab Documented By: Admin: 02/07/25 08:53 Dose: 1 tab Documented By: Admin: 02/06/25 08:50 Dose: Not Given Documented By: DILIA Non-Admin Reason: Called Pharm- pend delivery Admin: 02/05/25 08:26 Dose: 1 tab Documented By: СЕРГЕЙ Admin: 02/04/25 11:11 Dose: 1 tab Documented By: Admin: 02/03/25 08:42 Dose: 1 tab Documented By: Admin: 02/02/25 08:50 Dose: 1 tab Documented By: Admin: 02/01/25 08:22 Dose: Not Given Documented By: ALLEGRA Non-Admin Reason: NPO Admin: 01/31/25 08:36 Dose: 1 tab Documented By: Admin: 01/30/25 09:20 Dose: 1 tab Documented By: Admin: 01/29/25 10:42 Dose: 1 tab Documented By: Admin: 01/28/25 17:34 Dose: 1 tab Documented By: ILAN Vitamin D (Cholecalciferol (Vitamin D3) 1,000 Iu Tablet) 6,000 iu PO QDAY [facility] Stop: 02/27/25 16:29 Last Admin: 02/15/25 09:10 Dose: 6,000 iu Documented By: Admin: 02/14/25 09:08 Dose: 6,000 iu Documented By: Admin: 02/13/25 09:53 Dose: 6,000 iu Documented By: Admin: 02/12/25 10:20 Dose: 6,000 iu Documented By: CP Comments: late due to multiple pt. meds Admin: 02/11/25 08:22 Dose: 6,000 iu Documented By: Admin: 02/10/25 09:43 Dose: 6,000 iu Documented By: Admin: 02/09/25 09:25 Dose: 6,000 iu Documented By: Admin: 02/08/25 09:25 Dose: 6,000 iu Documented By: Admin: 02/07/25 08:32 Dose: 6,000 iu Documented By: Admin: 02/06/25 08:42 Dose: 6,000 iu Documented By: Admin: 02/05/25 08:26 Dose: 6,000 iu Documented By: Admin: 02/04/25 11:10 Dose: 6,000 iu Documented By: Admin: 02/03/25 08:43 Dose: 6,000 iu Documented By: [email or web address] Admin: 02/02/25 08:50 Dose: 6,000 iu Documented By: Admin: 02/01/25 08:20 Dose: Not Given Documented By: NJ Non-Admin Reason: NPO Admin: 01/31/25 08:53 Dose: Not Given Documented By: ILAN Non-Admin Reason: Patient Refused Admin: 01/30/25 08:22 Dose: 6,000 iu Documented By: Admin: 01/29/25 08:26 Dose: 6,000 iu Documented By: Admin: 01/28/25 17:35 Dose: 6,000 iu Documented By: ILAN As above Consultations Consultation(s) initiated? (list below): Yes Consultation #1 (Physician, Specialty, Details): ICU team for admission since the patient is on an insulin drip. Diagnosis Weakness Differential Diagnosis: acute myocardial infarction, rhabdomyolysis, dehydration and other (Electrolyte abnormality) Most likely diagnosis given after review of the tests above:: DKA Admission Indicated Admission indicated?: indicated Admission Request Was there a request for admission?: Yes Admission Attestation Admission request attestation: Discussed case with [] from Hospitalist service regarding admission. Discussed patients ED course, exam findings, labs, and radiology results. The Hospitalist [agrees,declines] to accept the patient for admission. Disposition Plan Disposition Plan: Admit Discharge Plan Plan Patient Disposition: Admit Acute Care w/in Hospital Patient condition on transfer: Stable Problem List Clinical Impression: DKA (diabetic ketoacidosis), Elevated lactic acid level, Acute dehydration Patient/Caregiver Discharge Instructions Other Activity Instructions:: Se muhammad suspendido los siguientes medicamentos: - Glipizida, alendronato, gemfibrozilo La dosis de Januvia se godfrey ajustado a 50 mg diarios. Castillo insulina se godfrey cambiado a la siguiente: - Lantus 10 unidades subcut?neas karen vez al d?a - Lispro, escala de correcci?n seg?n las instrucciones: 180-200 mg/dL = 1 unidad 201-250 mg/dL = 2 unidades 251-300 mg/dL = 3 unidades M?s de 300 mg/dL = 4 unidades Por favor, acuda a castillo m?dico de cabecera para karen consulta de seguimiento. Si no tiene m?dico de cabecera, dir?nissa al [facility]: [address], [place] [address] Tel?fono: Regrese al servicio de urgencias si presenta s?ntomas nuevos o si mendy s?ntomas empeoran. The following medications have been STOPPED: - Glipizide, alendronate, gemfibrozil Januvia has changed dosage to 50 mg daily Your insulin has been changed to the following: - Lantus 10 units subcutaneous once daily - Lispro correctional scale as per instructions: 180-200 mg/dL = 1 unit 201-250 mg/dL = 2 units 251-300 mg/dL = 3 units Greater than 300 mg/dL = 4 units Please follow up outpatient with your primary care doctor. If you do not have a primary doctor, please come to the [facility]: [address], [place] [address] Return to the ED if you develop new or worsening symptoms.
[2025-01-23 18:09] LABS: Magnesium 3.7 mg/dL (1.6-2.6); Phosphorous 7.0 mg/dL (2.4-5.1)
[2025-01-23] MEDS: INSULIN HUM REGULAR 1 UNIT/0.01 ML (PER UNIT) 10 UNIT IV (18:39)
[2025-01-23 18:40] LABS: Collection Type, Urine Catheter
[2025-01-23] MEDS: CALCIUM CHLORIDE 10% INJ 10 ML SYRG IV (18:42)
[2025-01-23] MEDS: DEXTROSE 50%-WATER INJ 50 ML SYRINGE IVP (18:48)
[2025-01-23] MEDS: INSULIN REG 100 UNITS/100 ML 100 UNIT in PRE-MIXED 1 BAG 5.443 UNIT IV (18:54)
[2025-01-23 18:59] LABS: Bacteria,Urine Rare; Bilirubin,Urine Negative (Negative); Blood,Urine Negative (Negative); Clarity,Urine Clear (Clear/Hazy); Color,Urine Colorless (Lt Yel-Yel); Culture Indicated,Urine Not Indicated; Glucose, Urine 4+ (Negative); Ketones,Urine Negative (Negative); Leukocyte Esterase,Urine Negative (Negative); Nitrite,Urine Negative (Negative); PH,Urine 6.0 (5.0-7.0); Protein,Urine Negative (Neg - Trace); RBC,Urine 7 /hpf (0-3); Specific Gravity,Urine 1.027 (1.001-1.035); Squamous Epithelial Cell,Urine 6 /hpf (0-5); Urobilinogen,Urine Negative mg/dL (0.0-1.0); WBC,Urine 4 /hpf (0-5)
--- NOTE | 2025-01-23 19:11 | XR_ITS ---
EXAMINATION: AP chest single view TECHNIQUE: 1. AP portable upright chest single view Date and time: January 23, 2025, 0721 hours INDICATION: Chest pain shortness of breath beginning 3 days ago. FINDINGS: Normal heart size Minor atelectasis left lower lobe No pneumonia or pulmonary edema Prominent osteopenia IMPRESSION: Minor atelectasis left lower lobe
[2025-01-23] MEDS: SOD POLYSTYRENE SULFON SUSP 15 GM/60 ML BTL 30 GM PO (19:25)
[2025-01-23 20:28] LABS: Beta Hydroxybutyrate 0.9 mmol/L (<0.6)
[2025-01-23 20:29] LABS: Reflex Lactate? Y
[2025-01-23 20:50] LABS: Anion Gap 16 (7-16); BUN/Creatinine Ratio 25 Ratio (12-20); Blood Urea Nitrogen 86 mg/dL (9-23); Calcium 9.2 mg/dL (8.3-10.6); Carbon Dioxide 17.2 mMol/L (20.0-31.0); Chloride 113 mMol/L (98-107); Creatinine (Component) 3.4 mg/dL (0.6-1.3); Osmolality,Calculated 376 (275-295); Potassium 4.8 mMol/L (3.4-5.1); Sodium 146 mMol/L (136-145); eGFR 14 See Note
[2025-01-23 20:53] LABS: Glucose 1182 mg/dL (74-106)
[2025-01-23 20:58] LABS: Lactic Acid, 3 HR 4.3 mMol/L (0.4-2.0)
[2025-01-23] MEDS: POTASSIUM CHL 10 mEq IVPB 10 MEQ/100 ML BAG 50 MEQ IV (21:51)
--- NOTE | 2025-01-23 22:01 | PC.NURSE ---
verbal order from dr. tony cabral to use 0.45% ns instead of LR for kcl 10meq. pharmacy was called to verify compatibilty.
--- NOTE | 2025-01-23 22:26 | PC.NURSE ---
per verbal orders of dr. medrano to decrease 0.45% ns maintaince from 250 to 150 that is ysite to kcl
[2025-01-23] MEDS: SODIUM CHLORIDE 0.45 % 1,000 ML 999 ML IV (22:31)
[2025-01-23 22:39] LABS: Albumin, Serum 3.7 gm/dL (3.4-4.8); Anion Gap 16 (7-16); BUN/Creatinine Ratio 25 Ratio (12-20); Blood Urea Nitrogen 85 mg/dL (9-23); Calcium 9.4 mg/dL (8.3-10.6); Calcium (Corrected) 9.6 mg/dL (8.5-10.1); Carbon Dioxide 18.3 mMol/L (20.0-31.0); Chloride 115 mMol/L (98-107); Creatinine (Component) 3.4 mg/dL (0.6-1.3); Magnesium 3.4 mg/dL (1.6-2.6); Phosphorous 5.2 mg/dL (2.4-5.1); Potassium 5.0 mMol/L (3.4-5.1); Sodium 149 mMol/L (136-145); eGFR 14 See Note
--- NOTE | 2025-01-23 22:41 | PC.NURSE ---
verbal order from dr. tony cabral to increase 0.45% 150 back to 250mls/hr to follow dka protocol
[2025-01-23 22:44] LABS: Osmolality,Calculated 369 (275-295)
[2025-01-23] MEDS: SODIUM CHLORIDE 0.45 % 1,000 ML 250 ML IV (22:45)
[2025-01-23 22:48] LABS: Glucose 971 mg/dL (74-106)
--- NOTE | 2025-01-23 23:12 | PD.RESHP ---
Documentation for date of: 01/23/25 HPI History of Present Illness History of present illness: Chief complaint: Generalized weakness HPI: Ms. Rivas is a 74-year-old Yoruba-speaking female with past medical history of type 2 insulin-dependent diabetes mellitus, primary hypertension, hyperlipidemia and CAD, who was brought in to the ED by her daughter for worsening weakness and poor oral intake over the last 2-3 days, nausea and vomiting. Per daughter at bedside, patient has been unable to tolerate any solid food for the last 72 hours and has primarily been only consuming liquids intermittently. She also has reduced functional activity, has mostly stayed on her bed and showed signs of anhedonia. Daughter decided to bring her to the hospital as she appeared very weak and had somewhat worsening mentation (lack of desire to communicate). Both patient and daughter deny any systemic symptoms, fever, focal weakness, recent travel or infectious exposure. In the ED, patient's vital signs showed soft blood pressure 95?100/40?50, other vital signs within normal limits. Patient is alert and oriented to place and person. Bedside fingerstick blood glucose was unable to give a measurement. Initial laboratory work remarkable for macrocytic anemia Hb 11.1, MCV 101, CHEM panel showed corrected sodium 171, osmolality 369, blood glucose 1152, potassium corrected from 6.6-4.8, Phos 5.2 and mag 3.4. RFT: BUN 85, creatinine 3.4 (baseline 1.1?1.3), lactic acid 2.9. Bicarb 17.2, VBG pH 7.22 and CO2 37 Patient was admitted for the work-up and management of DKA-HHS overlap in the setting of poor oral intake and noncompliance with home insulin. Allergies: NKFDA Social history: Tobacco?Use:?Denies ETOH?Use:?Denies Drug?Note:?Denies Social?History?Note:?Lives?at home with family Family history: Unknown Review of Systems Review of Systems Narrative Review of Systems: GENERAL: Denies fevers/chills, diaphoresis. HEENT: headache , no visual/hearing changes. Denies nasal discharge. NEURO: Denies unusual weakness or difficulty speaking. CARDIO: Denies chest pain, palpitations. PULM: Denies SOB, cough, wheezing. GI: Denies abdominal pain, no C/D. Reports having BMs URO: Denies burning/itching/pain/urinary changes. [employer]: Denies menstrual changes, hot flashes. MSK/EXT/SKIN: Denies skeletal/muscle pain, changes in upper or lower extremities, itchiness, superficial skin chnages. PSYCH: Cooperative, pleasant mood & affect. The rest of the review of systems is otherwise negative. Exam Vital Signs Temp Pulse Resp BP Pulse Ox O2 Del Method 98 F 71 17 97/41 L 99 Room Air 01/23/25 22:16 01/23/25 22:16 01/23/25 22:16 01/23/25 22:16 01/23/25 22:16 01/23/25 22:16 Narrative Exam Constitutional Alert, oriented x2 to place and person, elderly and frail HEENT Vision grossly intact, PERRL. Patent nares. Trachea midline. Respiratory Chest normal on inspection and clear to auscultation bilaterally. Cardiovascular S1 and S2 audible, RRR. No murmurs or carotid bruit. No gross JVD. Abdominal Soft and BS + ; distended, non tender to palpation in all quadrants. Genitourinary No bladder tenderness, no flank pain. Normal to palpation. Musculoskeletal Extremities tone within normal limits. No LE edema. Neurological CN II - XII grossly intact. Extremity motor and sensation grossly intact. Skin Warm, dry and intact. No apparent lesions. Psych Patient has a flat affect, but is cooperative. Results: Labs 01/24/25 05:00 01/24/25 21:27 Labs: Short CBC 01/23/25 Range/Units 15:20 WBC 10.7 (3.6-11.0) Thou/mm3 Hgb 11.1 L (12.0-16.0) g/dL Hct 37.2 (36.0-46.0) % Plt Count 314 D (140-440) Thou/mm3 BMP 01/23/25 01/23/25 01/23/25 15:20 20:14 21:50 Sodium 136 146 H D 149 H Potassium 6.6 H* 4.8 D 5.0 Chloride 98 113 H 115 H Carbon Dioxide 21.4 17.2 L 18.3 L BUN 94 H 86 H 85 H Creatinine 3.8 H 3.4 H 3.4 H Glucose 1528 H* 1182 H* D 971 H* D Calcium 8.6 9.2 9.4 Liver Function 01/23/25 01/23/25 Range/Units 15:20 21:50 Total Bilirubin 0.2 L (0.3-1.2) mg/dL AST 22 (0-34) U/L ALT 18 (10-49) U/L Alkaline Phosphatase 233 H (46-116) U/L Albumin 4.5 3.7 D (3.4-4.8) gm/dL Urine 01/23/25 Range/Units 18:17 Urine Color Colorless A (Lt Yel-Yel) Urine Clarity Clear (Clear/Hazy) Urine pH 6.0 (5.0-7.0) Ur Specific [place] 1.027 (1.001-1.035) Urine Protein Negative (Neg - Trace) Urine Glucose (UA) 4+ A (Negative) ABG Interpretation ABG results: 01/23/25 17:13 VBG pH 7.22 L VBG pCO2 37 VBG pO2 137 H VBG Base Excess -12 L Quality Measures Quality Measures VTE prophylaxis Advance care planning discussed with:: patient and child Medications Home Medications and Allergies Home Medications ?Medication ?Instructions ?Recorded ?Confirmed ?Type metoprolol succinate 50 mg capsule 50 mg PO BID 01/30/22 01/24/25 History sprinkle, ext. release 24 hr simvastatin 20 mg tablet 20 mg PO QPM 01/30/22 01/23/25 History alendronate 70 mg tablet 70 mg PO QWEEK 12/28/24 01/24/25 History gemfibrozil 600 mg tablet 600 mg PO BID 12/28/24 01/24/25 History lisinopril 10 mg tablet 10 mg PO QDAY 12/28/24 01/23/25 History empagliflozin 12.5 mg-metformin 1 tab PO BID 01/23/25 01/23/25 History 500 mg tablet (Synjardy) hydroxyzine pamoate 25 mg capsule 25 mg PO DAILY PRN itching 01/23/25 01/23/25 History metoprolol tartrate 50 mg tablet 50 mg PO Q12H 01/23/25 01/23/25 History ondansetron 4 mg disintegrating 4 mg PO Q12H PRN nausea and 01/23/25 01/23/25 History tablet vomiting pioglitazone 30 mg tablet 30 mg PO DAILY 01/23/25 01/23/25 History sitagliptin phosphate 100 mg 100 mg PO DAILY 01/23/25 01/23/25 History tablet (Januvia) glipizide 5 mg tablet 5 mg PO .qdac 01/24/25 01/24/25 History insulin degludec 100 unit/mL (3 32 unit subcut QPM 01/24/25 01/24/25 History mL) subcutaneous pen insulin glargine-yfgn 100 unit/mL 10 unit subcut QPM 01/24/25 01/24/25 History (3 mL) subcutaneous pen lancets 33 gauge (OneTouch Delica 01/24/25 01/24/25 History Plus Lancet) pen needle, diabetic 32 gauge x 01/24/25 01/24/25 History (Mary 2nd Gen Pen Needle) vitamin B complex-vitamin C-folic 1 tab PO QDAY 01/24/25 01/24/25 History acid 0.8 mg tablet (Greta-Jack) Allergies Allergy/AdvReac Type Severity Reaction Status Date / Time No Known Allergies Allergy Verified 12/28/24 13:05 Visit Medications Acetaminophen (Acetaminophen 325 Mg Tablet) 650 mg PO Q6H PRN PRN Reason: Fever >99.9 Stop: 02/22/25 21:12 Dextrose (Dextrose 50%-Water Inj 50 Ml Syringe) 25 ml IV [id number] PRN PRN Reason: Blood Sugar - Low Enoxaparin Sodium (Enoxaparin Sod Inj 40 Mg/0.4 Ml Syringe) 30 mg SC QPM ELVIA Stop: 02/07/25 20:59 Famotidine (Famotidine Inj 10 Mg/Ml Vial 2 Ml) 20 mg IVP Q12HR ELVIA Stop: 02/23/25 08:59 Insulin Human Regular 100 unit (/ IV Miscellaneous Supplies) 100 mls @ 5.443 mls/hr IV .[id number] PRN; Protocol PRN Reason: PER PROTOCOL Stop: 02/22/25 17:36 Last Admin: 01/23/25 18:54 Dose: 0.1 unit/kg/hr, 5.443 mls/hr Potassium Chloride (Kcl Ivpb) 10 meq in 100 mls @ 100 mls/hr IV .Q1H PRN PRN Reason: IF POTASSIUM LESS THAN 3.3 Stop: 02/22/25 21:12 Magnesium Sulfate (Magnesium Sulfate Ivpb) 2 gm in 50 mls @ 25 mls/hr IV .Q2H PRN PRN Reason: PER DKA PROTOCOL Stop: 02/22/25 21:12 Dextrose/Lactated Ringer's (D5-Lr) 1,000 mls @ 250 mls/hr IV .Q4H PRN PRN Reason: PER PROTOCOL Stop: 02/22/25 21:12 Lactated Ringer's (Lactated Ringers) 1,000 mls @ 250 mls/hr IV .Q4H PRN PRN Reason: PER PROTOCOL Stop: 01/24/25 21:12 Potassium Chloride 20 meq/ (Lactated Ringer's) 1,010 mls @ 250 mls/hr IV .Q4H3M PRN PRN Reason: K LEVEL 3.3 TO 5.3mM/L Stop: 02/22/25 21:12 Potassium Chloride 40 meq/ (Lactated Ringer's) 1,020 mls @ 250 mls/hr IV .Q4H5M PRN PRN Reason: K LEVEL < 3.3 mM/L Stop: 02/22/25 21:12 Potassium Chloride 40 meq/ (Dextrose/Lactated Ringer's) 1,020 mls @ 250 mls/hr IV .Q4H5M PRN PRN Reason: K LEVEL < 3.3mM/L Stop: 02/22/25 21:12 Potassium Cl/Dextrose/Lact Ringer's (Kcl 20 Meq/L In D5-Lr) 20 meq in 1,000 mls @ 250 mls/hr IV .Q4H PRN PRN Reason: K LEVEL 3.3 TO 5.3 mM/L Potassium Chloride (Kcl Ivpb) 10 meq in 100 mls @ 50 mls/hr IV PRN PRN PRN Reason: K LEVEL 3.3 to 5.3 & BG > 200 Stop: 02/22/25 21:12 Last Admin: 01/23/25 21:51 Dose: 50 mls/hr Potassium Phosphate (Pot Phos 15 Mmol In Ns 250 Ml) 15 mmol in 250 mls @ 62.5 mls/hr IV PRN PRN PRN Reason: Phosphate <= 1mg/dL Stop: 02/22/25 21:12 Sodium Phosphate 15 mmol/ (Sodium Chloride) 255 mls @ 62.5 mls/hr IV .Q4H5M PRN PRN Reason: Phosphate <= 1mg/dL and K> than 5.3 Stop: 02/22/25 21:12 Sodium Chloride (Ns 0.45%) 1,000 mls @ 150 mls/hr IV .Q6H40M [facility] Stop: 02/22/25 22:14 Last Admin: 01/23/25 22:27 Dose: Not Given Sodium Chloride (Ns 0.45%) 1,000 mls @ 999 mls/hr IV .Q1H1M [facility] Stop: 02/22/25 22:16 Last Infusion: 01/23/25 22:32 Dose: 0 mls/hr Ondansetron HCl (Ondansetron Inj 2 Mg/Ml Inj 2 Ml) 4 mg IVP Q6H PRN; Protocol PRN Reason: NAUSEA OR VOMITING Stop: 02/22/25 21:12 Sodium Bicarbonate (Sodium Bicarb Inj 8.4% Syr 50 Ml Syringe) 50 ml IV Q4HR PRN PRN Reason: For ph <= to 7.0 Stop: 02/22/25 21:12 Discontinued Medications Albuterol/Ipratropium (Albuterol/Ipratropium (Duoneb) Rt Radha 3 Ml Nebu) 3 ml INH X1 ONE Stop: 01/23/25 16:26 Last Admin: 01/23/25 17:05 Dose: 3 ml Calcium Chloride (Calcium Chloride 10% Inj 10 Ml Syrg) 10 ml IV X1 ONE Stop: 01/23/25 16:26 Last Admin: 01/23/25 18:42 Dose: 10 ml Dextrose (Dextrose 50%-Water Inj 50 Ml Syringe) 50 ml IVP X1 ONE Stop: 01/23/25 16:27 Last Admin: 01/23/25 18:48 Dose: 50 ml Sodium Chloride (Ns) 1,000 mls @ 999 mls/hr IV .Q1H1M ONE Stop: 01/23/25 15:58 Last Infusion: 01/23/25 16:21 Dose: Infused Sodium Chloride (Ns) 1,000 mls @ 999 mls/hr IV .Q1H1M ONE Stop: 01/23/25 17:17 Last Infusion: 01/23/25 17:23 Dose: Infused Sodium Chloride (Ns) 1,000 mls @ 999 mls/hr IV .Q1H1M ONE Stop: 01/23/25 22:07 Last Admin: 01/23/25 21:26 Dose: Not Given Piperacillin/Tazobactam/Dextrose (Zosyn) 3.375 gm in 50 mls @ 100 mls/hr IV X1 ONE; Protocol Stop: 01/23/25 21:36 Last Admin: 01/23/25 21:26 Dose: Not Given Sodium Chloride (Ns 0.45%) 1,000 mls @ 150 mls/hr IV .Q6H40M [facility] Stop: 02/22/25 21:24 Last Admin: 01/23/25 22:03 Dose: Not Given Insulin Human Regular (Insulin Hum Regular 1 Unit/0.01 Ml (Per Unit)) 10 unit IV X1 ONE Stop: 01/23/25 16:26 Last Admin: 01/23/25 18:39 Dose: 10 unit Pharmacy Consult (Vancomycin Pharmacy To Dose 1 Each Each) 1 each IV QDAY ONE Stop: 01/23/25 21:09 Last Admin: 01/23/25 21:27 Dose: Not Given Sevelamer Carbonate (Sevelamer Carbonate 800 Mg Tablet) 400 mg PO X1 ONE Stop: 01/23/25 21:20 Last Admin: 01/23/25 22:03 Dose: Not Given Sodium Polystyrene Sulfonate (Sod Polystyrene Sulfon Susp 15 Gm/60 Ml Btl) 30 gm PO X1 ONE Stop: 01/23/25 16:26 Last Admin: 01/23/25 19:25 Dose: 30 gm Assessment & Plan Plan Patient is a 74 year old female admitted for HHS, on insulin gtt. ENDO Severe DKA-HHS overlap Syndrome Type 2 IDDM Dx: - brought in to the ED by her daughter for nausea, vomiting, worsening weakness and poor oral intake over the last 2-3 days. - Per daughter at bedside, patient has been unable to tolerate any solid food for the last 72 hours and has primarily been only consuming liquids intermittently. - She also has reduced functional activity, has mostly stayed on her bed and showed signs of anhedonia. - Blood glucose 1500 on presentation in ED -> 1152 at the time of admission ; BHB 0.9 Rx: - Started on protocol for DKA/HHS with insulin drip - Continue 1/2 NS @ 250cc/h maintenance, due to elevated Na. Avoid NS or LR for IVF - NPO until glucose <200. Continue WF via NGT - q3H Renal checks, monitor closely - Hypoglycemia protocol in place - Day team to transition to subcutaneous insulin when appropriate - HbA1c ordered for a.m. draw - Advisable to prescribe continuous glucose monitor on discharge HLD Dx: - Longstanding history of hyperlipidemia, on simvastatin 20 mg at bedtime at home Rx: - Day team to resume statin on patient tolerating oral intake - Calculate ASCVD score and dose statin accordingly NEURO No active problems. CVS Hypotension History of CAD Primary hypertension Dx: - Blood pressure soft on presentation systolic 95?110 in the ED - Home meds: Metoprolol XL, lisinopril Rx: - Hold antihypertensive at this time given blood pressure within normal limits - Anticipate improvement in MAP with IV fluids per protocol for HHS - Hypotension likely due to poor oral intake. 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 STEVEN on CKD HyperOsmolar HyperNatremia HyperPhosphatemia HyperKalemia- resolved Lactic acidosis Dx: - RFT: BUN 85, creatinine 3.4 (baseline 1.1?1.3), GFR 14 (baseline 40s) - AG 17, Lactic acid 2.9, blood glucose 1152, BHB 0.9 - VBG pH 7.22 and CO2 37, Bicarb 17.2 - Corrected sodium 171, osmolality 369 - potassium corrected from 6.6-> 4.8 post kayexalate by ED - Phos 5.2 an - Mag 3.4 Rx: - q3H Renal Panel + Mg checks - LA checks q3H, trend until normalizes - Started on continuous water via NGT @ 125 cc/h, expect Na improvement with glucose correction as well - Renally dose medications - Avoid nephrotoxic agents - Continue IVF - Worsening LA likely in setting of NS boluses and 1/2 NS maintenence- D/C as corrected Na level noted to be 159. - Nephrology consulted for further evaluation. GI/Hep No active problems HEME/ONC Macrocytic anemia Dx: - macrocytic anemia Hb 11.1, MCV 101 - RFT: BUN 85, creatinine 3.4 (baseline 1.1?1.3), lactic acid 2.9. Bicarb 17.2, VBG pH 7.22 and CO2 37 Rx: - Get a.m. draw iron panel, B12 and folate levels. Replete accordingly - Likely due to poor oral intake. ID No active problems ICU Health maintenance: Dispo: Admit to ICU for HHS, on insulin drip Diet: Tube feeds via OGT DVT ppx: Enoxaparin 30mg SC daily (renally dosed) GI ppx: Famotidine 20 mg twice daily IV lines: 2 pIV Central line: No Code status: FULL CODE Plan of care discussed with hospitalist Dr Felder, - Omer Richardson MD PGY3 This document was compiled using speech recognition software. Grammatical errors can be an occasional consequence of this system due to software limitations. Attending Provider Attestation/Addendum After examination of the patient and review of the clinical data I feel that this patient needs admission to the hospital for further treatment/evaluation. TOTAL CC TIME: 75 MIN TOTAL TIME: 75 Minutes of direct medical management and planning of care. I Sheree Tanner MD, attest that I was physically present for crowley portions of evaluation, and examined patient, labs and imagings and plan of care were discussed with IM residents team, and I agree with the findings and plans documented above.
[2025-01-24] VITALS (130 sets, daily range): BP systolic 56–153; BP diastolic 27–93; PULSE 70–129; RESP 10–35; TEMP 36.2–36.6; O2SAT 85–100; BMI 22.6
[2025-01-24 00:18] LABS: Sodium 150 mMol/L (136-145)
--- NOTE | 2025-01-24 00:36 | XR_ITS ---
Examination: Abdomen AP single view Technique: AP portable supine abdomen, single view Exam date and time: January 24, 2025, 0055 hours INDICATIONS: Post orogastric tube placement FINDINGS: Orogastric tube coiled in the stomach satisfactory position Abundant stool throughout the colon No free air IMPRESSION: Nasogastric tube in the stomach satisfactory position
[2025-01-24 01:40] LABS: Albumin, Serum 3.7 gm/dL (3.4-4.8); Anion Gap 16 (7-16); BUN/Creatinine Ratio 25 Ratio (12-20); Blood Urea Nitrogen 85 mg/dL (9-23); Calcium 9.4 mg/dL (8.3-10.6); Calcium (Corrected) 9.6 mg/dL (8.5-10.1); Carbon Dioxide 15.8 mMol/L (20.0-31.0); Chloride 117 mMol/L (98-107); Creatinine (Component) 3.4 mg/dL (0.6-1.3); Magnesium 3.5 mg/dL (1.6-2.6); Phosphorous 5.2 mg/dL (2.4-5.1); Potassium 5.0 mMol/L (3.4-5.1); eGFR 14 See Note
[2025-01-24 02:02] LABS: Osmolality,Calculated 369 (275-295)
[2025-01-24 02:03] LABS: Glucose 970 mg/dL (74-106)
[2025-01-24] MEDS: SODIUM CHLORIDE 0.45 % 1,000 ML 250 ML IV (02:59)
[2025-01-24 03:43] LABS: Albumin, Serum 3.9 gm/dL (3.4-4.8); Anion Gap 14 (7-16); BUN/Creatinine Ratio 29 Ratio (12-20); Blood Urea Nitrogen 86 mg/dL (9-23); Calcium 9.2 mg/dL (8.3-10.6); Calcium (Corrected) 9.3 mg/dL (8.5-10.1); Carbon Dioxide 19.1 mMol/L (20.0-31.0); Chloride 118 mMol/L (98-107); Creatinine (Component) 3.0 mg/dL (0.6-1.3); Magnesium 3.3 mg/dL (1.6-2.6); Osmolality,Calculated 356 (275-295); Phosphorous 4.3 mg/dL (2.4-5.1); Potassium 5.6 mMol/L (3.4-5.1); Sodium 151 mMol/L (136-145); eGFR 16 See Note
[2025-01-24 03:45] LABS: Glucose 636 mg/dL (74-106)
[2025-01-24] MEDS: ONDANSETRON INJ 2 MG/ML INJ 2 ML 4 MG IVP ×2 (04:49→09:45)
[2025-01-24 05:11] LABS: Lactate (Lactic Acid) 5.8 mMol/L (0.4-2.0)
[2025-01-24 05:14] LABS: Basophils # (Auto) 0.0 Thou/mm3 (0.0-0.2); Basophils % (Auto) 0 % (0-2.5); Eosinophils # (Auto) 0.0 Thou/mm3 (0.0-0.5); Eosinophils % (Auto) 0 % (0-10); Hematocrit 27.9 % (36.0-46.0); Hemoglobin 9.1 g/dL (12.0-16.0); Immature Granulocytes Auto 0.01 Thou/mm3 (0.00-0.00); Lymphocytes # (Auto) 0.4 Thou/mm3 (1.0-4.8); Lymphocytes % (Auto) 6 % (10-50); Mean Corpuscular HGB Conc 32.6 g/dl (31.0-37.0); Mean Corpuscular Hemoglobin 30.6 pg (25.0-35.0); Mean Corpuscular Volume 94 fL (80-100); Monocytes # (Auto) 0.4 Thou/mm3 (0.0-0.8); Monocytes % (Auto) 6 % (0-12); Neutrophils # (Auto) 6.0 Thou/mm3 (1.8-7.7); Neutrophils % (Auto) 87 % (37-80); Nucleated Red Blood Cell # 0.00 Thou/mm3 (0.00-0.00); Nucleated Red Blood Cell % 0 /100 WBC (0); Platelet Count 151 Thou/mm3 (140-440); RDW Standard Deviation 44.4 fL (36.4-46.3); Red Blood Count 2.97 Miln/mm3 (4.00-5.20); White Blood Count 6.9 Thou/mm3 (3.6-11.0)
[2025-01-24 05:29] LABS: Glucose Estimated Average 346 mg/dL (80-131); Hemoglobin A1C 13.7 % Hgb (4.8-6.0)
[2025-01-24 06:02] LABS: Albumin, Serum 3.7 gm/dL (3.4-4.8); Anion Gap 17 (7-16); BUN/Creatinine Ratio 21 Ratio (12-20); Blood Urea Nitrogen 58 mg/dL (9-23); Calcium 8.6 mg/dL (8.3-10.6); Calcium (Corrected) 8.8 mg/dL (8.5-10.1); Carbon Dioxide 15.9 mMol/L (20.0-31.0); Chloride 117 mMol/L (98-107); Creatinine (Component) 2.8 mg/dL (0.6-1.3); Estimated Creatinine Clearance 13.7 mL/min (>60); Magnesium 2.9 mg/dL (1.6-2.6); Osmolality,Calculated 336 (275-295); Phosphorous 4.1 mg/dL (2.4-5.1); Potassium 4.7 mMol/L (3.4-5.1); Sodium 150 mMol/L (136-145); Thyroid Stimulating Hormone 0.38 uIU/mL (0.55-4.78); eGFR 17 See Note
[2025-01-24 06:04] LABS: Glucose 487 mg/dL (74-106)
[2025-01-24] MEDS: RINGERS LACTATED 1000 ML 1,000 ML 150 ML IV ×4 (06:31→23:20)
--- NOTE | 2025-01-24 06:49 | XR_ITS ---
Examination: Abdomen AP single view Technique: AP portable supine abdomen, single view Exam date and time: January 24, 2025, 0653 hours INDICATIONS: Abdominal pain and vomiting today. FINDINGS: Moderate stool throughout the colon Multiple air distended small bowel loops Orogastric tube in the stomach Surgical clips upper right abdomen Severe osteopenia IMPRESSION: Suspicious for small bowel obstruction, consider CT scan abdomen pelvis post intravenous contrast follow-up
[2025-01-24 07:01] LABS: Base Excess, Venous -10 (-3-3); O2 Saturation, Venous 81 % (96-97); PCO2, Venous 39 mmHg (36-56); PO2, Venous 43 mmHg (15-58); pH, Venous 7.25 (7.33-7.66)
[2025-01-24] MEDS: RINGERS LACTATED 1000 ML 1,000 ML 999 ML IV ×2 (07:25→08:58)
[2025-01-24 08:05] LABS: Reflex Lactate? Y
[2025-01-24 08:07] LABS: Free T4 (Free Thyroxine) 1.16 ng/dL (0.89-1.76)
[2025-01-24] MEDS: Norepinephrine/D5W 8mg/250ml 8 MG/250 ML BAG 5 MG IV (08:25)
--- NOTE | 2025-01-24 08:27 | XR_ITS ---
Examination: CT chest with intravenous contrast CT abdomen with intravenous contrast CT pelvis with intravenous contrast 2-D coronal and sagittal reconstructions Time of exam: January 24, 2025, 0952 hours INDICATIONS: Vomiting coffee-ground emesis with abdominal pain today CTDI: vol (mGy) : 6.52 DLP: (mGycm): 429 Technique: Multiple axial images of the chest, abdomen and pelvis with intravenous contrast, 3.0 mm slice thickness. Images obtained post intravenous injection Isovue 370 60 cc. 2-D sagittal and coronal reconstructions. Low dose protocols were performed. One or more of the following dose reduction techniques were used; automated exposure control, adjustment of the mA and/or KV according to patient size, use of iterative reconstruction technique. Findings: No thoracic aortic aneurysmal dilatation or dissection No pulmonary artery filling defects Fluid distended esophagus with orogastric tube Prominent bibasilar pneumonia Air in the venous radicals in the liver The spleen is enlarged Orogastric tube in the stomach Absent gallbladder No pancreatic or adrenal mass No hydronephrosis Aorta normal size Abnormal small bowel loops, fluid and air distended, air in the wall of multiple small bowel loops and pneumoperitoneum, multiple air droplets in the mesentery The appearance is consistent with ischemic small bowel No pericecal inflammatory change Mild free fluid in the pelvis Atrophic uterus Urinary bladder contracted around a Brunson catheter Prominent osteopenia IMPRESSION: Significant bibasilar pneumonia Abnormal ischemic small bowel, air and fluid distended, air in the wall of the small bowel and pneumoperitoneum, air droplets in the mesentery, recommend surgical consultation
[2025-01-24] MEDS: FAMOTIDINE INJ 10 MG/ML VIAL 2 ML 20 MG IVP ×2 (09:03→22:01)
[2025-01-24] MEDS: PIPER/TAZO 3.375 GM PREMIX 3.375 GM/50 ML BAG IV ×3 (09:03→22:01)
[2025-01-24 10:04] LABS: Alanine Aminotransferase 16 U/L (10-49); Albumin, Serum 3.0 gm/dL (3.4-4.8); Alkaline Phosphatase 96 U/L (46-116); Anion Gap 17 (7-16); Aspartate Amino Transferase 33 U/L (0-34); BUN/Creatinine Ratio 26 Ratio (12-20); Bilirubin,Direct < 0.1 mg/dL (0.0-0.3); Bilirubin,Total 0.2 mg/dL (0.3-1.2); Blood Urea Nitrogen 68 mg/dL (9-23); Calcium 8.1 mg/dL (8.3-10.6); Calcium (Corrected) 8.9 mg/dL (8.5-10.1); Carbon Dioxide 17.7 mMol/L (20.0-31.0); Chloride 116 mMol/L (98-107); Creatinine (Component) 2.6 mg/dL (0.6-1.3); Estimated Creatinine Clearance 14.8 mL/min (>60); Glucose 320 mg/dL (74-106); LDH (Lactate Dehydrogenase) 189 U/L (120-246); Lipase 132 U/L (12-53); Magnesium 2.4 mg/dL (1.6-2.6); Osmolality,Calculated 331 (275-295); Phosphorous 4.1 mg/dL (2.4-5.1); Potassium 4.4 mMol/L (3.4-5.1); Sodium 151 mMol/L (136-145); Total Protein 4.5 gm/dL (5.7-8.2); eGFR 19 See Note
[2025-01-24 10:05] LABS: Lactate (Lactic Acid) 4.9 mMol/L (0.4-2.0)
--- NOTE | 2025-01-24 11:37 | ESCONSULT_ITS ---
HPI Data of Consult Requesting Physician: Sheree Tanner MD Admitting Provider: Sheree Tanner MD Attending Provider: Sheree Tanner MD Primary Care Provider: Physician No Primary/Family Consult Narrative Reason for consult: Persistant vomiting and possible bowel ischemia History of present illness: HPI: A 74-year-old female patient reportedly known case of type 2 diabetes mellitus, CKD, primary hypertension, hyperlipidemia, coronary artery disease, she was brought to the ED after she was having persistent vomiting for the past few days. Family reported that she was unable to keep anything down. During that period patient became weak and was unable to take her meds. She was also experiencing some abdominal distention and bloating at that time. Per family members they reported that her last bowel movement was 1 day before presentation. Of note patient has history of chronic constipation for many years in the past. Patient has never had a colonoscopy or EGD in the past. Patient reported that she did not have any abdominal pain initially however after she came to the ED she started to have epigastric abdominal pain moderate in severity. Patient denied any hematemesis or hematochezia. Denied any history of weight loss, fever, chills, or night sweats. Home medications: ED course: At the ED patient was found to have blood pressure of 98/62, pulse rate of 92, saturating 95% on room air, respiratory of 18, CBC showedWas 10.7, initial hemoglobin was 11.1, MCV is 101, platelets 314, VBG showed pH level of 7.22, sodium level was found to be 136, and corrected sodium level is 158. He was also found to have anion gap of 17, BUN of 94, serum creatinine 3.8 baseline is 1.2, initial lactic acid was 2.9 however it continued to uptrend to 5.8, phosphate level initially was 7.0, beta-hydroxybutyrate mildly elevation 0.9. At the ED patient was given IV fluids, Kayexalate, and was started on insulin therapy. ICU course:Today patient blood pressure became in the lower side requiring initiating of norepinephrine. CT chest/abdomen and pelvis showed pneumoperitoneum, gas in the bowel barry, with radiological picture of bowel ischemia. PMH:As above, patient has history of IC admission after she was found to have septic shock secondary to cholecystitis. Patient underwent cholecystectomy with no complications. PSX:Cholecystectomy cc:: cc: Sheree Tanner MD Review of Systems Review of Systems Systems Reviewed: All systems reviewed, normal except as documented Exam Vital Signs Temp Pulse Resp BP Pulse Ox O2 Del Method O2 Flow Rate 97.2 F 99 28 H 92/79 100 Oxy Mask 15 01/24/25 08:01 01/24/25 11:00 01/24/25 11:00 01/24/25 11:00 01/24/25 11:00 01/24/25 08:01 01/24/25 08:01 Narrative Exam GEN: AOx3, able to speak full sentences, NG tube in place connected to LIC HEENT: NC/AC, oral mucosa moist, neck supple CVS: RRR, S1-S2 present, no murmurs appreciated RESP: CTAB GI: soft,non distended, non tender, NBS MSK: able to move all 4 limbs, no lower extremity edema SKIN: warm and dry DECKER OPERATOR: CN II-XII and Sensation grossly intact. Results Labs 01/24/25 05:00 01/24/25 17:40 Labs: Short CBC 01/23/25 01/24/25 Range/Units 15:20 05:00 WBC 10.7 6.9 (3.6-11.0) Thou/mm3 Hgb 11.1 L 9.1 L D (12.0-16.0) g/dL Hct 37.2 27.9 L (36.0-46.0) % Plt Count 314 D 151 D (140-440) Thou/mm3 BMP 01/23/25 01/23/25 01/23/25 15:20 20:14 21:50 Sodium 136 146 H D 149 H Potassium 6.6 H* 4.8 D 5.0 Chloride 98 113 H 115 H Carbon Dioxide 21.4 17.2 L 18.3 L BUN 94 H 86 H 85 H Creatinine 3.8 H 3.4 H 3.4 H Glucose 1528 H* 1182 H* D 971 H* D Calcium 8.6 9.2 9.4 01/23/25 01/24/25 01/24/25 23:40 02:56 05:00 Sodium 150 H 151 H 150 H Potassium 5.0 5.6 H D 4.7 D Chloride 117 H 118 H 117 H Carbon Dioxide 15.8 L 19.1 L 15.9 L BUN 85 H 86 H 58 H Creatinine 3.4 H 3.0 H 2.8 H Glucose 970 H* 636 H* D 487 H* D Calcium 9.4 9.2 8.6 01/24/25 09:15 Sodium 151 H Potassium 4.4 Chloride 116 H Carbon Dioxide 17.7 L BUN 68 H Creatinine 2.6 H Glucose 320 H D Calcium 8.1 L Liver Function 01/23/25 01/23/25 01/23/25 Range/Units 15:20 21:50 23:40 Total Bilirubin 0.2 L (0.3-1.2) mg/dL Direct Bilirubin (0.0-0.3) mg/dL AST 22 (0-34) U/L ALT 18 (10-49) U/L Alkaline Phosphatase 233 H (46-116) U/L Albumin 4.5 3.7 D 3.7 (3.4-4.8) gm/dL 01/24/25 01/24/25 01/24/25 Range/Units 02:56 05:00 09:15 Total Bilirubin 0.2 L (0.3-1.2) mg/dL Direct Bilirubin < 0.1 (0.0-0.3) mg/dL AST 33 (0-34) U/L ALT 16 (10-49) U/L Alkaline Phosphatase 96 D (46-116) U/L Albumin 3.9 3.7 3.0 L D (3.4-4.8) gm/dL Urine 01/23/25 Range/Units 18:17 Urine Color Colorless A (Lt Yel-Yel) Urine Clarity Clear (Clear/Hazy) Urine pH 6.0 (5.0-7.0) Ur Specific [place] 1.027 (1.001-1.035) Urine Protein Negative (Neg - Trace) Urine Glucose (UA) 4+ A (Negative) ABG Interpretation ABG results: 01/23/25 01/24/25 17:13 05:00 VBG pH 7.22 L 7.25 L VBG pCO2 37 39 VBG pO2 137 H 43 D VBG Base Excess -12 L -10 L Quality Measures Quality Measures VTE prophylaxis Advance care planning discussed with:: patient Medications Home Medications and Allergies Home Medications ?Medication ?Instructions ?Recorded ?Confirmed ?Type metoprolol succinate 50 mg capsule 50 mg PO BID 01/24/25 History sprinkle, ext. release 24 hr simvastatin 20 mg tablet 20 mg PO QPM 01/30/22 History alendronate 70 mg tablet 70 mg PO QWEEK 12/28/2401/02 History gemfibrozil 600 mg tablet 600 mg PO BID 12/28/2401/24 History lisinopril 10 mg tablet 10 mg PO QDAY 12/28/2401/23 History empagliflozin 12.5 mg-metformin 1 tab PO BID 01/23/25 01/23/25 History 500 mg tablet (Synjardy) hydroxyzine pamoate 25 mg capsule 25 mg PO DAILY PRN i tching 01/23/25 01/23/25 History metoprolol tartrate 50 mg tablet 50 mg PO Q12H 5 01/23/25 History ondansetron 4 mg disintegrating 4 mg PO Q12H PRN nause a and 01/23/25 01/23/25 History tablet vomiting pioglitazone 30 mg tablet 30 mg PO DAILY 01/23/2501/02 History sitagliptin phosphate 100 mg 100 mg PO DAILY 01/23/25 01/23/25 History tablet (Januvia) glipizide 5 mg tablet 5 mg PO .qdac 01/24/2501/24 History insulin degludec 100 unit/mL (3 32 unit subcut QPM 01/24/25 History mL) subcutaneous pen insulin glargine-yfgn 100 unit/mL 10 unit subcut QPM 1 01/24/25 History (3 mL) subcutaneous pen lancets 33 gauge (OneTouch Delica 01/24/25 01/24/25 H istory Plus Lancet) pen needle, diabetic 32 gauge x 01/24/25 01/24/25 His tory (Mary 2nd Gen Pen Needle) vitamin B complex-vitamin C-folic 1 tab PO QDAY 01/24/25 History acid 0.8 mg tablet (Greta-Jack) Allergies Allergy/AdvReac Type Severity Reaction Status Date / Time No Known Allergies Allergy Verified 12/28/24 13:05 Visit Medications Acetaminophen (Acetaminophen 325 Mg Tablet) 650 mg PO Q6H PRN PRN Reason: Fever >99.9 Stop: 02/22/25 21:12 Dextrose (Dextrose 50%-Water Inj 50 Ml Syringe) 25 ml IV PRNMRX1 PRN PRN Reason: Blood Sugar - Low Famotidine (Famotidine Inj 10 Mg/Ml Vial 2 Ml) 20 mg IVP Q12HR ELVIA Stop: 02/23/25 08:59 Last Admin: 01/24/25 09:03 Dose: 20 mg Insulin Human Regular 100 unit (/ IV Miscellaneous Supplies) 100 mls @ 5.443 mls/hr IV .[id number] PRN; Protocol PRN Reason: PER PROTOCOL Stop: 02/22/25 17:36 Last Titration: 01/24/25 06:00 Dose: 0.1 unit/kg/hr, 5.443 mls/hr Potassium Chloride (Kcl Ivpb) 10 meq in 100 mls @ 100 mls/hr IV .Q1H PRN PRN Reason: IF POTASSIUM LESS THAN 3.3 Stop: 02/22/25 21:12 Magnesium Sulfate (Magnesium Sulfate Ivpb) 2 gm in 50 mls @ 25 mls/hr IV .Q2H PRN PRN Reason: PER DKA PROTOCOL Stop: 02/22/25 21:12 Dextrose/Lactated Ringer's (D5-Lr) 1,000 mls @ 250 mls/hr IV .Q4H PRN PRN Reason: PER PROTOCOL Stop: 02/22/25 21:12 Potassium Chloride 20 meq/ (Lactated Ringer's) 1,010 mls @ 250 mls/hr IV .Q4H3M PRN PRN Reason: K LEVEL 3.3 TO 5.3mM/L Stop: 02/22/25 21:12 Potassium Chloride 40 meq/ (Lactated Ringer's) 1,020 mls @ 250 mls/hr IV .Q4H5M PRN PRN Reason: K LEVEL < 3.3 mM/L Stop: 02/22/25 21:12 Potassium Chloride 40 meq/ (Dextrose/Lactated Ringer's) 1,020 mls @ 250 mls/hr IV .Q4H5M PRN PRN Reason: K LEVEL < 3.3mM/L Stop: 02/22/25 21:12 Potassium Cl/Dextrose/Lact Ringer's (Kcl 20 Meq/L In D5-Lr) 20 meq in 1,000 mls @ 250 mls/hr IV .Q4H PRN PRN Reason: K LEVEL 3.3 TO 5.3 mM/L Potassium Chloride (Kcl Ivpb) 10 meq in 100 mls @ 50 mls/hr IV PRN PRN PRN Reason: K LEVEL 3.3 to 5.3 & BG > 200 Stop: 02/22/25 21:12 Last Admin: 01/23/25 21:51 Dose: 50 mls/hr Potassium Phosphate (Pot Phos 15 Mmol In Ns 250 Ml) 15 mmol in 250 mls @ 62.5 mls/hr IV PRN PRN PRN Reason: Phosphate <= 1mg/dL Stop: 02/22/25 21:12 Sodium Phosphate 15 mmol/ (Sodium Chloride) 255 mls @ 62.5 mls/hr IV .Q4H5M PRN PRN Reason: Phosphate <= 1mg/dL and K> than 5.3 Stop: 02/22/25 21:12 Sodium Chloride (Ns 0.45%) 1,000 mls @ 250 mls/hr IV .Q4H ELVIA Stop: 02/22/25 23:41 Last Admin: 01/24/25 02:59 Dose: 250 mls/hr Lactated Ringer's (Lactated Ringers) 1,000 mls @ 150 mls/hr IV .Q6H40M PRN PRN Reason: PER PROTOCOL Stop: 01/24/25 21:12 Last Admin: 01/24/25 06:31 Dose: 150 mls/hr Norepinephrine/Dextrose (Levophed In D5w 8mg/250ml) 8 mg in 250 mls @ 5.103 mls/hr IV .Q24H PRN; Protocol PRN Reason: PER PROTOCOL Stop: 02/23/25 08:18 Piperacillin/Tazobactam/Dextrose (Zosyn) 3.375 gm in 50 mls @ 100 mls/hr IV Q8HR ELVIA; Protocol Stop: 01/31/25 08:44 Last Admin: 01/24/25 09:03 Dose: 100 mls/hr Ondansetron HCl (Ondansetron Inj 2 Mg/Ml Inj 2 Ml) 4 mg IVP Q6H PRN; Protocol PRN Reason: NAUSEA OR VOMITING Stop: 02/22/25 21:12 Last Admin: 01/24/25 04:49 Dose: 4 mg Pantoprazole Sodium (Pantoprazole Inj 40 Mg Vial) 40 mg IVP QDAY [facility] Stop: 02/23/25 07:14 Last Admin: 01/24/25 09:08 Dose: Not Given Sodium Bicarbonate (Sodium Bicarb Inj 8.4% Syr 50 Ml Syringe) 50 ml IV Q4HR PRN PRN Reason: For ph <= to 7.0 Stop: 02/22/25 21:12 Discontinued Medications Albuterol/Ipratropium (Albuterol/Ipratropium (Duoneb) Rt Radha 3 Ml Nebu) 3 ml INH X1 ONE Stop: 01/23/25 16:26 Last Admin: 01/23/25 17:05 Dose: 3 ml Calcium Chloride (Calcium Chloride 10% Inj 10 Ml Syrg) 10 ml IV X1 ONE Stop: 01/23/25 16:26 Last Admin: 01/23/25 18:42 Dose: 10 ml Dextrose (Dextrose 50%-Water Inj 50 Ml Syringe) 50 ml IVP X1 ONE Stop: 01/23/25 16:27 Last Admin: 01/23/25 18:48 Dose: 50 ml Enoxaparin Sodium (Enoxaparin Sod Inj 40 Mg/0.4 Ml Syringe) 30 mg SC QPM [facility] Stop: 02/07/25 20:59 Enoxaparin Sodium (Enoxaparin Sod Inj 40 Mg/0.4 Ml Syringe) 40 mg SC QDAY [facility] Stop: 02/07/25 09:44 Sodium Chloride (Ns) 1,000 mls @ 999 mls/hr IV .Q1H1M ONE Stop: 01/23/25 15:58 Last Infusion: 01/23/25 16:21 Dose: Infused Sodium Chloride (Ns) 1,000 mls @ 999 mls/hr IV .Q1H1M ONE Stop: 01/23/25 17:17 Last Infusion: 01/23/25 17:23 Dose: Infused Sodium Chloride (Ns) 1,000 mls @ 999 mls/hr IV .Q1H1M ONE Stop: 01/23/25 22:07 Last Admin: 01/23/25 21:26 Dose: Not Given Piperacillin/Tazobactam/Dextrose (Zosyn) 3.375 gm in 50 mls @ 100 mls/hr IV X1 ONE; Protocol Stop: 01/23/25 21:36 Last Admin: 01/23/25 21:26 Dose: Not Given Lactated Ringer's (Lactated Ringers) 1,000 mls @ 250 mls/hr IV .Q4H PRN PRN Reason: PER PROTOCOL Stop: 01/24/25 21:12 Sodium Chloride (Ns 0.45%) 1,000 mls @ 150 mls/hr IV .Q6H40M ELVIA Stop: 02/22/25 21:24 Last Admin: 01/23/25 22:03 Dose: Not Given Sodium Chloride (Ns 0.45%) 1,000 mls @ 150 mls/hr IV .Q6H40M ELVIA Stop: 02/22/25 22:14 Last Admin: 01/23/25 22:27 Dose: Not Given Sodium Chloride (Ns 0.45%) 1,000 mls @ 999 mls/hr IV .Q1H1M ELVIA Stop: 02/22/25 22:16 Last Infusion: 01/23/25 22:32 Dose: 0 mls/hr Lactated Ringer's (Lactated Ringers) 1,000 mls @ 999 mls/hr IV .Q1H1M ONE Stop: 01/24/25 08:08 Last Admin: 01/24/25 07:25 Dose: 999 mls/hr Lactated Ringer's (Lactated Ringers) 1,000 mls @ 999 mls/hr IV .Q1H1M ONE Stop: 01/24/25 09:46 Last Admin: 01/24/25 08:58 Dose: 999 mls/hr Insulin Human Regular (Insulin Hum Regular 1 Unit/0.01 Ml (Per Unit)) 10 unit IV X1 ONE Stop: 01/23/25 16:26 Last Admin: 01/23/25 18:39 Dose: 10 unit Ondansetron HCl (Ondansetron Inj 2 Mg/Ml Inj 2 Ml) 4 mg IVP X1 ONE; Protocol Stop: 01/24/25 09:42 Last Admin: 01/24/25 09:45 Dose: 4 mg Pharmacy Consult (Vancomycin Pharmacy To Dose 1 Each Each) 1 each IV QDAY ONE Stop: 01/23/25 21:09 Last Admin: 10/23/25 21:27 Dose: Not Given Sevelamer Carbonate (Sevelamer Carbonate 800 Mg Tablet) 400 mg PO X1 ONE Stop: 01/23/25 21:20 Last Admin: 01/23/25 22:03 Dose: Not Given Sodium Polystyrene Sulfonate (Sod Polystyrene Sulfon Susp 15 Gm/60 Ml Btl) 30 gm PO X1 ONE Stop: 01/23/25 16:26 Last Admin: 01/23/25 19:25 Dose: 30 gm Assessment & Plan Plan Summary:A 74-year-old female patient reportedly known case of type 2 diabetes mellitus, CKD, primary hypertension, hyperlipidemia, coronary artery disease, she was brought to the ED after she was having persistent vomiting for the past few days. Family reported that she was unable to keep anything down. Patient was admitted to the ICU for treatment of HHS treatment and was found to have bowel ischemia. #Acute bowel ischemia #Persistent vomiting Patient is known case to have chronic constipation, her last bowel movement was 1 day before presentation. She has history of coronary artery disease which make her at risk of having bowel ischemia. Initially patient denied any abdominal pain, however after she was admitted she started to experience epigastric abdominal pain moderate in severity with no radiation. patient was found to have blood pressure of 98/62, pulse rate of 92, saturating 95% on room air, respiratory of 18, CBC showedWas 10.7, initial hemoglobin was 11.1, MCV is 101, platelets 314, VBG showed pH level of 7.22, sodium level was found to be 136, and corrected sodium level is 158. He was also found to have anion gap of 17, BUN of 94, serum creatinine 3.8 baseline is 1.2, initial lactic acid was 2.9 however it continued to uptrend to 5.8, phosphate level initially was 7.0, beta-hydroxybutyrate mildly elevation 0.9. At the ED patient was given IV fluids, Kayexalate, and was started on insulin therapy. ICU course:Today patient blood pressure became in the lower side requiring initiating of norepinephrine. CT chest/abdomen and pelvis showed pneumoperitoneum, gas in the bowel barry, and gas in the portal circulation. with radiological picture of bowel ischemia. Plan ? Stat surgical consultation ? Optimize perfusion of possible with all the IV fluids to decrease basal constructions at the mesenteric vessels ? Continue broad-spectrum antibiotic Zosyn IV ? Keep the patient n.p.o. and switch from LIC to continuous suction ? No enemas ? Consider consulting dietitian start preparing the patient for TPN if needed #HHS #History of diabetes mellitus #History of hypertension #Hypernatremia Plan Initial blood glucose was more than 1500 ? Patient was started on IV fluids, insulin drip #STEVEN on CKD #NAGMA most likely secondary to BUN and lactic acidosis #Hyperkalemia #Hyperphosphatemia Plan ? Follow-up with nephrology recommendations ? Avoid Kayexalate if possible #History of coronary artery disease Given this patient's history this increase the risk of the patient having ischemic bowel injury. Thank you for the consultation, please do not hesitate to reach out if you have any question or concern - Patient's plan and care discussed with my attending, Dr. Rudi Montilla MD Internal Medicine PGY-3 Attending Provider Attestation/Addendum Patient personally examined laboratory data and Imaging studies reviewed I agree with the assessment of the internal medicine resident The patient has mesenteric ischemia with ischemic bowel disease and needs to go to exploration Agree with supporting the blood pressure and broad-spectrum antibiotics Prognosis is guarded No invasive GI workup planned and needed Thank you very much for the opportunity to participate in the care of this patient
--- NOTE | 2025-01-24 11:45 | PC.SS ---
AIR TWIST OPERATOR conducted bedside contact with the patient conduct initial assessment and to discuss discharge planning.? AIR TWIST OPERATOR utilized contracting officer to assist with discussion.? Patient confirmed demographic information.? Patient resides at home with spouse, Manpreet Peraza.? Patient utilizes a walker to assist with ambulation.? Patient does not utilize home oxygen.? Patient currently on oxygen.? Patient describes ability to complete ADL?s independently.? Patient identified daughter, Nely Peraza ; as surrogate medical decision maker.? Patient utilizes [facility]; for PCP services.? Patient does not possess any specialty providers.? Patient does not participate with dialysis.? Patient possesses history of diabetes.? Patient utilizes [facility] for medication services.? If oxygen required at the time of discharge, no preferred vendor identified.? Plan is for the patient to return home at the time of discharge.? Family will provide transportation on behalf of the patient.? No further discharge needs identified by the patient.? No further intervention required at this time, director of social work will be available to address any further concerns.? Next of Kin: Nely Peraza D/C Plan: Home
--- NOTE | 2025-01-24 12:03 | XR_ITS ---
EXAMINATION: AP chest single view TECHNIQUE: AP portable chest single view Date and time: January 24, 2025, 1210 hours, comparison January 23, 2025 INDICATIONS: Post central line placement, post orogastric tube placement FINDINGS: Bibasilar pneumonia Normal heart size Reduced inspiratory effort Right internal jugular central line tip right atrium Orogastric tube coiled in the stomach IMPRESSION: Bibasilar pneumonia Right internal jugular central line tip right atrium, no pneumothorax
[2025-01-24] MEDS: ALBUMIN HUMAN-KJDA 25% IVPB 25 GM/100 ML BTL IV (12:09)
--- NOTE | 2025-01-24 12:12 | PD.SURCONS ---
HPI Consult details History of present illness: 74F with HTN, HLD, DMII (A1c 13), CAD, admitted 01/23 with 3-day history of weakness, poor oral intake and nausea/vomiting, with findings consistent with HHS. Pt was admitted to ICU and then overnight developed worsening abdominal distention, AXR showing stool burden and CT performed today concerning for ischemic small bowel with air droplets in the mesentery and pneumoperitoneum. Pt was started on pressor support, has an increasing lactate Review of Systems Review of Systems ROS Unobtainable: unobtainable due to mental status Meds Home Medications and Allergies Home Medications ?Medication ?Instructions ?Recorded ?Confirmed ?Type metoprolol succinate 50 mg capsule 50 mg PO BID 01/30/22 12/28/24 History sprinkle, ext. release 24 hr simvastatin 20 mg tablet 20 mg PO QPM 01/30/22 01/23/25 History alendronate 70 mg tablet 70 mg PO QWEEK 12/28/24 12/28/24 History gemfibrozil 600 mg tablet 600 mg PO BID 12/28/24 12/28/24 History lisinopril 10 mg tablet 10 mg PO QDAY 12/28/24 01/23/25 History empagliflozin 12.5 mg-metformin 1 tab PO BID 01/23/25 01/23/25 History 500 mg tablet (Synjardy) hydroxyzine pamoate 25 mg capsule 25 mg PO DAILY PRN itching 01/23/25 01/23/25 History metoprolol tartrate 50 mg tablet 50 mg PO Q12H 01/23/25 01/23/25 History ondansetron 4 mg disintegrating 4 mg PO Q12H PRN nausea and 01/23/25 01/23/25 History tablet vomiting pioglitazone 30 mg tablet 30 mg PO DAILY 01/23/25 01/23/25 History sitagliptin phosphate 100 mg 100 mg PO DAILY 01/23/25 01/23/25 History tablet (Januvia) Allergies Allergy/AdvReac Type Severity Reaction Status Date / Time No Known Allergies Allergy Verified 12/28/24 13:05 Exam Vital Signs Temp Pulse Resp BP Pulse Ox O2 Del Method O2 Flow Rate 97.2 F 99 28 H 92/79 100 Oxy Mask 15 01/24/25 08:01 01/24/25 11:00 01/24/25 11:00 01/24/25 11:00 01/24/25 11:00 01/24/25 08:01 01/24/25 08:01 Constitutional Constitutional: moderate distress Routine Respiratory Exam Respiratory: Present no resp distress Routine Abdominal Exam Abdominal: Present tenderness (diffuse tenderness), distended and guarding; Absent rebound Results Results: Laboratory Laboratory results: results reviewed Results: Imaging CT scan - abdomen: report reviewed and image reviewed Assessment & Plan Plan 74F with HTN, HLD, DMII (A1c 13), CAD, admitted 01/23 with 3-day history of weakness, poor oral intake and nausea/vomiting, with findings consistent with HHS, now with abdominal distention, septic shock on pressor support and CT findings of small bowel ischemia. I spoke to pt's family with an head of visual merchandising and explained that surgery is necessary to evaluate and resect the affected small bowel. Given her current condition the goal of this surgery is to save her life, so it is possible I will have to leave her in discontinuity and return to OR in the next 1-2 days. I also informed family that if the small bowel is not amenable to resection I will unfortunately not be able to cure her. I explained that she will remain intubated after surgery but emphasized that she is critically ill and the risk of anesthesia/surgery according to ACS NSQIP risk calculator is >60% chance of serious complication and 40% risk of . All questions were answered and family provided informed consent for surgery
[2025-01-24 12:33] LABS: Reflex Lactate? Y
--- NOTE | 2025-01-24 13:10 | ESPR_ITS ---
<Statement entered by Jesús Barclay MD - 01/25/25 07:48> TOTAL CC TIME: 125 MIN I saw and evaluated the patient. I reviewed the resident?s note and agree with findings and plan as documented in the resident?s note. Upon my evaluation, this patient had a high probability of imminent or life- threatening deterioration due to septic shock, STEVEN, ishemic bowel with perforation, which required my direct attention, intervention, and personal management. This time is exclusive of time spent on procedures, which are documented separately if performed. pt required multiple addditional IVF boluses US IVC difficult to perform due to abdmonial distention LA was increasing in am - then slightly improved non-mottled on sepsis re-evaluation (7:00am) cap refill 2.5 s tachypneic - tachycardic started zosyn consulted surgery due to bowel perforation likely due to ischemia remains on insulin gtt <Statement entered by Abdulkadir Medina MD - 01/24/25 18:19> Patient seen and examined at bedside. I discussed and supervised with the programming intern physician who took care of this patient. I personally saw and examined the patient. I agree with most of the assessment and plan. 74-year-old female with PMH significant for CAD, type 2 diabetes, hypertension presents to ED with chief complaint of nausea, vomiting, weakness. Reports poor p.o. intake, unable to tolerate solids, for several days. Patient has not taken her insulin during this time. On presentation patient patient had glucose approximately 1500, corrected sodium 170, serum osmolality 369. She was initiated with insulin drip, aggressive fluid repletion. NG tube was placed for free water flushes in setting of hypernatremia. Patient developed worsening abdominal pain, abdominal ascension, dark brown vomitus, NG tube was placed on LIS. In the morning, exam revealed significant abdominal distention and tenderness, rebound tenderness. Overnight KUB showed significant stool burden, stat chest/abdomen/pelvis CT with contrast was ordered. CT showed air in venous radicles of liver, pneumoperitoneum, air in small bowel wall, findings consistent with small bowel ischemia. Stat general surgery consult was placed, patient taken for emergent ex lap. Approximately 280 cm of small bowel was removed, jejunum and terminal ileum were anastomosed, incision site closed. Patient was then successfully extubated and brought back to ICU, where she remains on pressors and oxygen therapy, titrating down as tolerated. As needed Dilaudid for pain. Continuing insulin drip and IVF for hypernatremia and HHS, with careful monitoring to avoid overcorrection. Plan of care discussed with attending Dr. Barclay. Abdulkadir Medina MD PGY-2 Documentation for date of: 01/24/25 Subjective Subjective Interval history: 74-year-old female with a medical history significant for insulin-dependent type 2 diabetes, hypertension, hyperlipidemia, and coronary artery disease presented to the ED on 01/24 with complaints of weakness and decreased oral intake over the past 2-3 days. She also reports associated nausea and vomiting. According to her family, she has been unable to retain food or fluids and has not been able to take her medications. Her last bowel movement occurred one day prior to presentation. Initially, the patient did not experience abdominal pain, but she began to develop abdominal discomfort during her time in the ED. She denies any history of hematemesis, hematochezia, chills, or weight loss. ED Course: -Initial vitals were BP 98/62, HR 92, RR 18, T 97.7F, O2 sat 95% on room air. -Labs significant for Hgb 11.1, MCV 101; PT 12.6, PTT 36.8; VBG pH 7.22, pCO2 37, pO2 137; corrected Na 171, K 6.6, AG 17, BUN 94, Cr 3.8, eGFR 12, glucose 1528, calculated osmolality 379, PO4 7.0, Mg 3.7, ALP 233, -Imaging included: Head CT unremarkable, CXR minor atelectasis left lower lobe. -In the ED, patient was given: NS 2L, Albuterol/Ipratropium 3ml INH x1, insulin regular 10 units IV x1, Calcium chloride 10 ml IV x1, Dextrose 50 mL IVP x1, Insulin drip, sodium polystytene sulfonate 30 mg PO x1. Patient was admitted for the work-up and management of HHS in the setting of poor oral intake and noncompliance with home insulin. Upon arrival to the ICU around 10 PM on 01/24, the patient was administered 1L NS, 1L of LR and maintenance fluids. Pantoprazole and ondansetron was also administered. An NG tube was placed for free water flushes due to hypernatremia. Patient subsequently developed worsening abdominal pain and dark brown vomitus. The NG tube was placed on low intermittent suction. On physical exam this morning, patient had significant abdominal distension and rebound tenderness. Overnight KUB revealed significant stool burden. A guaiac test on the vomitus was positive for blood. A stat chest, abdomen, and pelvis CT was ordered, which demonstrated abnormal ischemic small bowel, air and fluid distended, air in the wall of the small bowel and pneumoperitoneum, air droplets in the mesentery. A stat consult with general surgery was called. Right IJ central line placed. Patient underwent an emergent exploratory laparotomy. Approximately 280 cm of small bowel was resected, and a jejuno-ileal anastomosis was performed. Patient was extubated and transferred back to the ICU. Patient is receiving pressor support and supplemental oxygen therapy. Management with insulin drip and IV fluids to address hypernatremia and hyperosmolar hyperglycemic state continued. Exam Vital Signs Temp Pulse Resp BP Pulse Ox O2 Del Method O2 Flow Rate 97.2 F 103 H 28 H 117/45 L 100 Oxy Mask 15 01/24/25 08:01 01/24/25 12:00 01/24/25 12:00 01/24/25 12:00 01/24/25 12:00 01/24/25 08:01 01/24/25 08:01 Narrative Exam Physical Exam General: Elderly, frail, awake and alert but appears uncomfortable. NG tube in place to low intermittent suction with dark brown/black output noted. Head: Normocephalic, atraumatic. Eyes: Pupils equally round and reactive to light. Anicteric. Blind in left eye. Mouth/Throat: Dry mucous membranes. Heart: Regular rate and rhythm, no murmurs. No JVD. Peripheral pulses 2+ and symmetric in all extremities. Lungs: Clear to auscultation bilaterally. Non-labored respirations, symmetric chest rise, no use of accessory muscles. Abdomen: Distended. Extremely tender to palpation diffusely with rebound and voluntary guarding. No palpable masses or organomegaly. Hypoactive bowel sounds. Neurologic: Alert and oriented x3, no gross neurological deficit, and patient able to move all 4 extremities. Extremities: No clubbing, cyanosis, or edema. Capillary refill <2 seconds. Skin warm to touch, no mottling. Skin: No rashes, lesions, or ulcers. Psychiatric: Cooperative, appropriate mood and affect Objective Labs 01/25/25 05:55 01/25/25 04:50 Labs: Laboratory Results - last 24 hr 01/23/25 01/23/25 01/23/25 15:20 17:13 18:17 WBC 10.7 RBC 3.68 L Hgb 11.1 L Hct 37.2 MCV 101 H MCH 30.2 MCHC 29.8 L RDW Std Deviation 50.3 H Plt Count 314 D Neut % (Auto) 89 H Lymph % (Auto) 5 L Cole % (Auto) 5 Eos % (Auto) 0 Baso % (Auto) 0 Neut # (Auto) 9.5 H Lymph # (Auto) 0.6 L Cole # (Auto) 0.6 Eos # (Auto) 0.0 Baso # (Auto) 0.0 Immature Gran # (Auto) 0.02 H Absolute Nucleated RBC 0.00 Immature Gran % 0 Nucleated RBC % 0 VBG pH 7.22 L VBG pCO2 37 VBG pO2 137 H VBG O2 Sat (Johanna) 99 H VBG Base Excess -12 L Sodium 136 Potassium 6.6 H* Chloride 98 Carbon Dioxide 21.4 Anion Gap 17 H BUN 94 H Creatinine 3.8 H Estim Creat Clear Calc Not Performed. eGFR 12 L* BUN/Creatinine Ratio 25 H Glucose 1528 H* Estimated Ave Glu mg/dL Hemoglobin A1c Calculated Osmolality 379 H Lactic Acid 2.9 H Calcium 8.6 Corrected Calcium 8.6 Phosphorus 7.0 H Magnesium 3.7 H Total Bilirubin 0.2 L Direct Bilirubin AST 22 ALT 18 Alkaline Phosphatase 233 H Lactate Dehydrogenase Total Protein 7.0 Albumin 4.5 Globulin 2.5 Albumin/Globulin Ratio 1.8 Lipase Beta-Hydroxybutyrate/Acetoacetate TSH Free T4 Ur Collection Type Catheter Urine Color Colorless A Urine Clarity Clear Urine pH 6.0 Ur Specific [place] 1.027 Urine Protein Negative Urine Glucose (UA) 4+ A Urine Ketones Negative Urine Blood Negative Urine Nitrite Negative Urine Bilirubin Negative Urine Urobilinogen (Auto) Negative Ur Leukocyte Esterase Negative Urine RBC 7 H Urine WBC 4 Ur Squamous Epith Cells 6 H Urine Bacteria Rare Ur Culture Indicated? Not Indicated Blood Type Antibody Screen Crossmatch Blood Bank Wristband ID 01/23/25 01/23/25 01/23/25 20:14 21:50 23:40 WBC RBC Hgb Hct MCV MCH MCHC RDW Std Deviation Plt Count Neut % (Auto) Lymph % (Auto) Cole % (Auto) Eos % (Auto) Baso % (Auto) Neut # (Auto) Lymph # (Auto) Cole # (Auto) Eos # (Auto) Baso # (Auto) Immature Gran # (Auto) Absolute Nucleated RBC Immature Gran % Nucleated RBC % VBG pH VBG pCO2 VBG pO2 VBG O2 Sat (Johanna) VBG Base Excess Sodium 146 H D 149 H 150 H Potassium 4.8 D 5.0 5.0 Chloride 113 H 115 H 117 H Carbon Dioxide 17.2 L 18.3 L 15.8 L Anion Gap 16 16 16 BUN 86 H 85 H 85 H Creatinine 3.4 H 3.4 H 3.4 H Estim Creat Clear Calc Not Performed. Not Performed. Not Performed. eGFR 14 L* 14 L* 14 L* BUN/Creatinine Ratio 25 H 25 H 25 H Glucose 1182 H* D 971 H* D 970 H* Estimated Ave Glu mg/dL Hemoglobin A1c Calculated Osmolality 376 H 369 H 369 H Lactic Acid 4.3 H* Calcium 9.2 9.4 9.4 Corrected Calcium 9.6 9.6 Phosphorus 5.2 H 5.2 H Magnesium 3.4 H 3.5 H Total Bilirubin Direct Bilirubin AST ALT Alkaline Phosphatase Lactate Dehydrogenase Total Protein Albumin 3.7 D 3.7 Globulin Albumin/Globulin Ratio Lipase Beta-Hydroxybutyrate/Acetoacetate 0.9 H TSH Free T4 Ur Collection Type Urine Color Urine Clarity Urine pH Ur Specific [place] Urine Protein Urine Glucose (UA) Urine Ketones Urine Blood Urine Nitrite Urine Bilirubin Urine Urobilinogen (Auto) Ur Leukocyte Esterase Urine RBC Urine WBC Ur Squamous Epith Cells Urine Bacteria Ur Culture Indicated? Blood Type Antibody Screen Crossmatch Blood Bank Wristband ID 01/24/25 01/24/25 01/24/25 02:56 05:00 09:15 WBC 6.9 RBC 2.97 L Hgb 9.1 L D Hct 27.9 L MCV 94 MCH 30.6 MCHC 32.6 RDW Std Deviation 44.4 Plt Count 151 D Neut % (Auto) 87 H Lymph % (Auto) 6 L Cole % (Auto) 6 Eos % (Auto) 0 Baso % (Auto) 0 Neut # (Auto) 6.0 Lymph # (Auto) 0.4 L Cole # (Auto) 0.4 Eos # (Auto) 0.0 Baso # (Auto) 0.0 Immature Gran # (Auto) 0.01 H Absolute Nucleated RBC 0.00 Immature Gran % 0 Nucleated RBC % 0 VBG pH 7.25 L VBG pCO2 39 VBG pO2 43 D VBG O2 Sat (Johanna) 81 L VBG Base Excess -10 L Sodium 151 H 150 H 151 H Potassium 5.6 H D 4.7 D 4.4 Chloride 118 H 117 H 116 H Carbon Dioxide 19.1 L 15.9 L 17.7 L Anion Gap 14 17 H 17 H BUN 86 H 58 H 68 H Creatinine 3.0 H 2.8 H 2.6 H Estim Creat Clear Calc Not Performed. 13.7 L 14.8 L eGFR 16 L 17 L 19 L BUN/Creatinine Ratio 29 H 21 H 26 H Glucose 636 H* D 487 H* D [address] mg/dL 346 H Hemoglobin A1c 13.7 H Calculated Osmolality 356 H 336 H 331 H Lactic Acid 5.8 H* 4.9 H* Calcium 9.2 8.6 8.1 L Corrected Calcium 9.3 8.8 8.9 Phosphorus 4.3 4.1 4.1 Magnesium 3.3 H 2.9 H 2.4 Total Bilirubin 0.2 L Direct Bilirubin < 0.1 AST 33 ALT 16 Alkaline Phosphatase 96 D Lactate Dehydrogenase 189 Total Protein 4.5 L Albumin 3.9 3.7 3.0 L D Globulin Albumin/Globulin Ratio Lipase 132 H Beta-Hydroxybutyrate/Acetoacetate TSH 0.38 L Free T4 1.16 Ur Collection Type Urine Color Urine Clarity Urine pH Ur Specific [place] Urine Protein Urine Glucose (UA) Urine Ketones Urine Blood Urine Nitrite Urine Bilirubin Urine Urobilinogen (Auto) Ur Leukocyte Esterase Urine RBC Urine WBC Ur Squamous Epith Cells Urine Bacteria Ur Culture Indicated? Blood Type O Positive Antibody Screen NEGATIVE Crossmatch See Detail Blood Bank Wristband ID Yes ABG Interpretation ABG results: 01/23/25 01/24/25 17:13 05:00 VBG pH 7.22 L 7.25 L VBG pCO2 37 39 VBG pO2 137 H 43 D VBG Base Excess -12 L -10 L Quality Measures Quality Measures VTE prophylaxis Advance care planning discussed with:: patient Assessment & Plan Assessment Current Active Medications: Generic Name Dose Route Start Last Admin Trade Name Sydq PRN Reason Stop Dose Admin Acetaminophen 650 mg 01/23/25 21:13 Acetaminophen 325 Mg Tablet PO 02/22/25 21:12 Q6H PRN Fever >99.9 Dextrose 25 ml 01/23/25 21:13 Dextrose 50%-Water Inj 50 Ml Syringe IV [id number] PRN Blood Sugar - Low Famotidine 20 mg 01/24/25 09:00 01/24/25 09:03 Famotidine Inj 10 Mg/Ml Vial 2 Ml IVP 02/23/25 08:59 20 mg Q12HR ELVIA Administration Insulin Human Regular 100 unit 100 mls @ 5.443 mls/hr 01/23/25 17:37 01/24/25 06:00 / IV Miscellaneous Supplies IV 02/22/25 17:36 0.1 unit/kg/hr .[id number] PRN 5.443 mls/hr PER PROTOCOL Titration Protocol 0.1 UNIT/KG/HR Potassium Chloride 10 meq in 100 mls @ 100 mls/hr 01/23/25 21:13 Kcl Ivpb IV 02/22/25 21:12 .Q1H PRN IF POTASSIUM LESS THAN 3.3 Magnesium Sulfate 2 gm in 50 mls @ 25 mls/hr 01/23/25 21:13 Magnesium Sulfate Ivpb IV 02/22/25 21:12 .Q2H PRN PER DKA PROTOCOL Dextrose/Lactated Ringer's 1,000 mls @ 250 mls/hr 01/23/25 21:13 D5-Lr IV 02/22/25 21:12 .Q4H PRN PER PROTOCOL Potassium Chloride 20 meq/ 1,010 mls @ 250 mls/hr 01/23/25 21:13 Lactated Ringer's IV 02/22/25 21:12 .Q4H3M PRN K LEVEL 3.3 TO 5.3mM/L Potassium Chloride 40 meq/ 1,020 mls @ 250 mls/hr 01/23/25 21:13 Lactated Ringer's IV 02/22/25 21:12 .Q4H5M PRN K LEVEL < 3.3 mM/L Potassium Chloride 40 meq/ 1,020 mls @ 250 mls/hr 01/23/25 21:13 Dextrose/Lactated Ringer's IV 02/22/25 21:12 .Q4H5M PRN K LEVEL < 3.3mM/L Potassium Cl/Dextrose/Lact Ringer's 20 meq in 1,000 mls @ 250 mls/hr 01/23/25 21:13 Kcl 20 Meq/L In D5-Lr IV .Q4H PRN K LEVEL 3.3 TO 5.3 mM/L Potassium Chloride 10 meq in 100 mls @ 50 mls/hr 01/23/25 21:13 01/23/25 21:51 Kcl Ivpb IV 02/22/25 21:12 50 mls/hr PRN PRN Administration K LEVEL 3.3 to 5.3 & BG > 200 Potassium Phosphate 15 mmol in 250 mls @ 62.5 mls/hr 01/23/25 21:13 Pot Phos 15 Mmol In Ns 250 Ml IV 02/22/25 21:12 PRN PRN Phosphate <= 1mg/dL Sodium Phosphate 15 mmol/ 255 mls @ 62.5 mls/hr 01/23/25 21:13 Sodium Chloride IV 02/22/25 21:12 .Q4H5M PRN Phosphate <= 1mg/dL and K> than 5.3 Sodium Chloride 1,000 mls @ 250 mls/hr 01/23/25 23:42 01/24/25 02:59 Ns 0.45% IV 02/22/25 23:41 250 mls/hr .Q4H ELVIA Administration Lactated Ringer's 1,000 mls @ 150 mls/hr 01/24/25 06:08 01/24/25 12:09 Lactated Ringers IV 01/24/25 21:12 150 mls/hr .Q6H40M PRN Administration PER PROTOCOL Norepinephrine/Dextrose 8 mg in 250 mls @ 5.103 mls/hr 01/24/25 08:19 Levophed In D5w 8mg/250ml IV 02/23/25 08:18 .Q24H PRN PER PROTOCOL Protocol 0.05 MCG/KG/MIN Piperacillin/Tazobactam/Dextrose 3.375 gm in 50 mls @ 100 mls/hr 01/24/25 08:45 01/24/25 09:03 Zosyn IV 01/31/25 08:44 100 mls/hr Q8HR ELVIA Administration Protocol Ondansetron HCl 4 mg 01/23/25 21:13 01/24/25 04:49 Ondansetron Inj 2 Mg/Ml Inj 2 Ml IVP 02/22/25 21:12 4 mg Q6H PRN Administration NAUSEA OR VOMITING Protocol Pantoprazole Sodium 40 mg 01/24/25 07:15 01/24/25 09:08 Pantoprazole Inj 40 Mg Vial IVP 02/23/25 07:14 Not Given QDAY ELVIA Sodium Bicarbonate 50 ml 01/23/25 21:13 Sodium Bicarb Inj 8.4% Syr 50 Ml Syringe IV 02/22/25 21:12 Q4HR PRN For ph <= to 7.0 Plan 74-year-old female with medical history significant for insulin-dependent type 2 diabetes, hypertension, hyperlipidemia, and coronary artery disease presenting with hyperosmolar hyperglycemic state (glucose ~1500, Na 170, osmolality 369) complicated by small bowel ischemia requiring emergent exploratory laparotomy for small bowel resection and anastomosis, now post-op in ICU on pressors and insulin drip. Neurology #no active problems Cardiovascular #Shock, likely distributive due to small bowel ischemia 01/24 around 7AM, a sepsis re-evaluation was performed: - Vital signs: T 98F, HR 88, BP: 67/44, RR 26. MAP: 52. Pulse ox 100% on room air. - Focused physical exam: Heart: RRR, no murmurs. peripheral pulses 2+ and symmetric in all extremities. Capillary refill > 2 seconds. Thready pulse. Lungs: clear to auscultation bilaterally. Skin: pale, warm to touch, no mottling. Diagnostic Test: - Blood glucose: 487. - Corrected sodium: 159. - Urine output: 450 cc in past 12 hours. - Lactate: 5.8 (worsening) - Patient is not responding adequately to IV fluids, with persistent hypotension, elevated lactic acid levels, and worsening abdominal pain. - Point of care ultrasound: IVC was not dilated and difficult to appreciate due to abdominal distention and pain. Treatment Review (completed): - IV crystalloid fluid bolus - 30 cc/kg given. Treatment Plan: - Blood cultures drawn prior to antibiotics. - Administered broad spectrum antibiotic - Zosyn (renally dosed). - Levophed started for persistent hypotension. If requirement increases will consider adding stress dose steroids. - Discontinued Lovenox for DVT PPX. - Monitor urine output. - Continue insulin drip for HHS. #Sinus tachycardia DDx: post-op pain vs HHS Treatment Plan: - Continue to treat HHS. - Hydromorphone 0.5mg IV Q4HR PRN for post-op pain. #History of coronary artery disease - Currently stable, no intervention required at this time. - Will continue home meds when stable. #Primary hypertension - Will continue home meds when stable. Respiratory #Community acquired pneumonia Diagnostic Test: - CXR and CT chest: significant bibasilar infiltrates. Treatment Plan: - Continue on oxymask, titrate to maintain SpO2 >92%, wean as tolerated. - Continue antibiotics. - Sputum culture pending. - MRSA screen pending. - Consider chest physiotherapy and incentive spirometry once stable. GI and F/E/N #Small bowel ischemia S/p Exploratory laparotomy, small bowel resection and anastomosis Diagnostic Test: - CTAP: abnormal ischemic small bowel, air and fluid distended, air in the wall of the small bowel and pneumoperitoneum, air droplets in the mesentery. - Per operative note: large portion of ischemic jejunum and ileum. Remaining jejunum and ileum were anastomosed. Patient extubated in OR and transfer back to ICU. - Estimated blood loss during surgery: 50 cc and no transfusion was needed. - Patient had very low-dose of pressor support during procedure. - First bowel movement was shortly after surgery when patient returned to ICU. Per nurse the stool was brown, non-bloody and formed. Treatment Plan: - Hydromorphone 0.5mg IV Q4HR PRN for post-op pain. - Zofran 4mg IV Q6HR PRN nausea. - Zosyn 3.375 gram daily. - Pantoprazole 40mg IV daily. - Follow-up with surgery to see when NG tube can be removed. - Cyber Operator referral about vitamin supplementation. Patient is at risk for folate (absorbed in jejunum) and vitamin B12 (absorbed in ileum) deficiency. - Patient education about Dumping syndrome. Renal #Acute kidney injury on chronic kidney disease DDx: dehydration vs hypotension Diagnostic Test: - Admission labs: BUN 85, creatinine 3.4 (baseline 1.1?1.3), eGFR 12. Treatment Plan: - Continue LR maintenance fluids at 150 ml/hr. - Monitor urine output. - Strict I&Os. - Daily renal panel to trend BUN, Cr, and electrolytes. - Avoid nephrotoxins - Renally dose meds as appropriate. - Nephrology is following. #Anion gap metabolic acidosis (resolved) DDx: lactic acidosis from shock vs DKA vs STEVEN. - VBG: pH 7.22, pCO2 37. - CMP: corrected sodium 170 , bicarb 21.4, chloride 98. - Anion gap: 17. Treatment Plan: - Anticipate improvement with treating underlying cause. #Lactic acidosis DDx: shock vs respiratory failure vs HHS Diagnostic Test: - Lactic acid 2.9 --> 4.3 --> 5.8 --> 4.9. Treatment Plan: - Monitor serial lactate levels to ensure downtrend. - Continue to treat underlying cause. - Continue IV fluids as needed based on volume status and lactate trend - Monitor renal function and urine output. - No need for bicarbonate therapy at this time. - Continue with Levophed. Heme #Normocytic Anemia DDx: acute blood loss vs anemia of chronic disease vs renal failure. Diagnostic Test: - Hemoglobin 11.1 --> 9.1. - Dark brown/black emesis. - Cr 3.8, eGFR 12. - Coagulation panel: PT 12.6, PTT 36.8. Treatment Plan: - Type and screen - IVF resuscitation to maintain MAP > 65 - NPO - IV Pantoprazole - Transfuse if Hgb < 7 (current Hgb 9.1) - Serial H/H - GI consulted, appreciate recommendations Endo #Hyperosmolar hyperglycemic state Diagnostic Test: - On admission labs: - Blood glucose 1528. - Blood osmolarity 379. - Beta hydroxybutyrate 0.9. - UA with negative ketones. - VBG pH 7.22, pCO2 37. Treatment Plan: - Continue insulin drip. - Continue LR maintenance at 150ml/hr. - Criteria for HHS resolution: appropriate urine output, good mentation, blood osmol < 300, and blood glucose < 250. - Blood glucose checks Q1H. - Blood glucose goal 140-180. Initially decreased glucose by 80-100 mg/hr until goal. #Hyperosmolar hypernatremia Diagnostic Test: - Corrected sodium at admission: 170 - Goal sodium for the first 24 hours: 155-160. - Sodium corrected to 156. Treatment Plan: - Goal is to lower serum sodium by no more than 10 mEq/L in 24 hours to prevent cerebral edema. - Sodium check Q4H. #Insulin-dependent type 2 diabetes Diagnost Test: - Hemoglobin A1c: 13.7. Treatment Plan: - Continue to treat HHS with insulin drip. - Will transition to subcutaneous insulin when HHS as resolved. ID #no active problems Health Maintenance: DVT prophylaxis: heparin 5000 subQ. GI prophylaxis: Pantoprazole 40mg IV QD. Diet: NPO Brunson: present Lines: Peripherals Drips: Leveophed, insulin Vent: not on MV CODE STATUS: FULL CODE Patient discussed with my senior resident Dr. Medina and attending, Dr. Barclay. Garrett Wallis DO, PGY 1
--- NOTE | 2025-01-24 14:57 | PD.SUROPNT ---
Date of Procedure 01/24/25 Pre Op Diagnosis Small bowel ischemia Post Op Diagnosis Same Procedure Exploratory laparotomy, small bowel resection and anastomosis, washout Findings A large portion of ischemic jejunum and ileum measuring >280cm. 18cm of proximal jejunum and 101cm of terminal ileum remained healthy and were anastomosed in a side-side fashion Procedure Description After discussion of risks and benefits with pt and family, pt was brought to OR, SCDs were placed and general anesthesia was induced. She received preoperative antibiotics and was prepped and draped in the usual sterile fashion. After timeout an upper midline incision was created with a #10 blade and the tissues were dissected with electrocautery. Upon entering the abdomen there was copious serosanguineous fluid which was suctioned. The small bowel was eviscerated and examined from the ligament of Treitz to the cecum. The large majority of this bowel was noted to be ischemic and the mesentery did not have palpable pulses. Measuring the healthy intestine found that there was 18 cm of viable proximal jejunum and 101 cm of viable terminal ileum. The ischemic small bowel was measured to be approximately 280 cm and was resected using a 60 mm [place] and the Enseal large device for the mesentery. At this point I confirmed with the anesthesiologist that the patient was doing overall well, remaining only on a very low-dose of pressor support so I opted to complete the small bowel anastomosis. The remaining jejunum and ileum were anastomosed in a [id number] fashion using 2 sequential fires of the 60 mm blue load [place]. The common enterotomy was closed with a 60 mm blue load stapler as well. The staple line was oversewn with a 3-0 Vicryl in a running and locking fashion. 2 crotch stitches were performed in a Lembert fashion with 3-0 silk sutures. The abdomen was irrigated with warm saline until the effluent was clear. Counts were confirmed correct. The fascia was closed with a running #1 PDS and the wound was irrigated. Skin was loosely approximated with cornelio and covered with Telfa, gauze and Tegaderm. Again this patient was doing overall well, she was extubated in OR and planned for transfer back to ICU Pathology / specimen Other (Ischemic jejunum and ileum) Estimated Blood Loss 50 Surgeon Jade Quinonez MD Surgical Staff Operation Date: 01/24/25 14:15 Case Staff [employer]: Stacy Lama RN First Assistant: Slim Martinez
--- NOTE | 2025-01-24 15:34 | PD.RESCONSUL ---
HPI Data of Consult Consult date: 01/24/25 Requesting Physician: Sheree Tanner MD Admitting Provider: Sheree Tanner MD Attending Provider: Sheree Tanner MD Primary Care Provider: Physician No Primary/Family Consult Narrative Reason for consult: Acute Kidney Injury in the setting of HHS and ischemic bowel History of present illness: 74-year-old Syriac-speaking female with a past medical history of insulin-dependent type 2 diabetes mellitus, CKD (baseline Cr ~1.1?1.3), hypertension, hyperlipidemia, and CAD, admitted on 01/23/25 for HHS/DKA overlap following 3 days of nausea, vomiting, poor oral intake, and progressive weakness. She was initially found to have severe hyperglycemia (BG >1500), corrected sodium 171, and STEVEN with Cr 3.4 on admission. During hospitalization, she developed worsening abdominal distension and rising lactate (2.9 -> 5.8). CT abdomen revealed extensive small bowel ischemia with pneumoperitoneum and mesenteric air. She underwent emergent exploratory laparotomy today with resection of approximately 280 cm of ischemic jejunum and ileum, leaving 18 cm of proximal jejunum and 101 cm of terminal ileum, followed by primary anastomosis. Nephrology consulted for STEVEN management, fluid and electrolyte optimization, and assessment of renal replacement needs. 01/24/2025: This morning, patient was seen in the ICU prior to surgery. She appeared lethargic but arousable, reported ongoing nausea and abdominal discomfort. No bowel movement since last 5 days and no gas passed since the last . Daughter at bedside noted patient had increasing abdominal distension overnight and appeared weaker. Patient denied chest pain or shortness of breath. Brunson in place with minimal urine output noted. Patient was scheduled for exploratory laparotomy following CT findings consistent with pneumoperitoneum and ischemic small bowel with mesenteric air. After surgery, patient was transferred back to the ICU. She was extubated in the operating room and is now awake but tired, able to respond to questions appropriately. On low dose pressors. Denies chest pain, shortness of breath, or worsening abdominal pain. Brunson catheter remains in place, urine output being monitored. Family at bedside, supportive. Labs: WBC 6.9, Hgb 9.1, Hct 27.9, Plt 151, Na 151 (corrected 156), K 4.4, Cl 116, CO2 17.7, AG 17, BUN 68, Cr 2.6 (from 3.0 yesterday, baseline 1.1?1.3), GFR 19, Glucose 320 (prior 970 -> 487 -> 320), Ca 8.9, Phos 4.1, Mg 2.4, Albumin 3.0, Lactic acid 4.9 ( from 5.8), VBG pH 7.25 / pCO2 39, Lipase 132. cc:: cc: Sheree Tanner MD Review of Systems Constitutional Comments: Negative unless stated above Exam Vital Signs Temp Pulse Resp BP Pulse Ox O2 Del Method O2 Flow Rate 97.2 F 103 H 28 H 117/45 L 100 Oxy Mask 15 01/24/25 08:01 01/24/25 12:00 01/24/25 12:00 01/24/25 12:00 01/24/25 12:00 01/24/25 08:01 01/24/25 08:01 Narrative Exam General: Elderly, frail, awake and alert but appears uncomfortable. NG tube in place to low intermittent suction with dark brown/black output noted. Head: Normocephalic, atraumatic. Eyes: Pupils equally round and reactive to light. Anicteric. Blind in left eye. Mouth/Throat: Dry mucous membranes. Heart: Regular rate and rhythm, no murmurs. No JVD. Peripheral pulses 2+ and symmetric in all extremities. Lungs: Clear to auscultation bilaterally. Non-labored respirations, symmetric chest rise, no use of accessory muscles. Abdomen: Distended. Extremely tender to palpation diffusely with rebound and voluntary guarding. No palpable masses or organomegaly. Hypoactive bowel sounds. Neurologic: Alert and oriented x3, no gross neurological deficit, and patient able to move all 4 extremities. Extremities: No clubbing, cyanosis, or edema. Capillary refill <2 seconds. Skin warm to touch, no mottling. Skin: No rashes, lesions, or ulcers. Results Labs 01/26/25 05:05 01/26/25 16:14 Labs: Short CBC 01/23/25 01/24/25 Range/Units 15:20 05:00 WBC 10.7 6.9 (3.6-11.0) Thou/mm3 Hgb 11.1 L 9.1 L D (12.0-16.0) g/dL Hct 37.2 27.9 L (36.0-46.0) % Plt Count 314 D 151 D (140-440) Thou/mm3 BMP 01/23/25 01/23/25 01/23/25 15:20 20:14 21:50 Sodium 136 146 H D 149 H Potassium 6.6 H* 4.8 D 5.0 Chloride 98 113 H 115 H Carbon Dioxide 21.4 17.2 L 18.3 L BUN 94 H 86 H 85 H Creatinine 3.8 H 3.4 H 3.4 H Glucose 1528 H* 1182 H* D 971 H* D Calcium 8.6 9.2 9.4 01/23/25 01/24/25 01/24/25 23:40 02:56 05:00 Sodium 150 H 151 H 150 H Potassium 5.0 5.6 H D 4.7 D Chloride 117 H 118 H 117 H Carbon Dioxide 15.8 L 19.1 L 15.9 L BUN 85 H 86 H 58 H Creatinine 3.4 H 3.0 H 2.8 H Glucose 970 H* 636 H* D 487 H* D Calcium 9.4 9.2 8.6 01/24/25 09:15 Sodium 151 H Potassium 4.4 Chloride 116 H Carbon Dioxide 17.7 L BUN 68 H Creatinine 2.6 H Glucose 320 H D Calcium 8.1 L Liver Function 01/23/25 01/23/25 01/23/25 Range/Units 15:20 21:50 23:40 Total Bilirubin 0.2 L (0.3-1.2) mg/dL Direct Bilirubin (0.0-0.3) mg/dL AST 22 (0-34) U/L ALT 18 (10-49) U/L Alkaline Phosphatase 233 H (46-116) U/L Albumin 4.5 3.7 D 3.7 (3.4-4.8) gm/dL 01/24/25 01/24/25 01/24/25 Range/Units 02:56 05:00 09:15 Total Bilirubin 0.2 L (0.3-1.2) mg/dL Direct Bilirubin < 0.1 (0.0-0.3) mg/dL AST 33 (0-34) U/L ALT 16 (10-49) U/L Alkaline Phosphatase 96 D (46-116) U/L Albumin 3.9 3.7 3.0 L D (3.4-4.8) gm/dL Urine 01/23/25 Range/Units 18:17 Urine Color Colorless A (Lt Yel-Yel) Urine Clarity Clear (Clear/Hazy) Urine pH 6.0 (5.0-7.0) Ur Specific [place] 1.027 (1.001-1.035) Urine Protein Negative (Neg - Trace) Urine Glucose (UA) 4+ A (Negative) ABG Interpretation ABG results: 01/23/25 01/24/25 17:13 05:00 VBG pH 7.22 L 7.25 L VBG pCO2 37 39 VBG pO2 137 H 43 D VBG Base Excess -12 L -10 L Quality Measures Quality Measures VTE prophylaxis Advance care planning discussed with:: patient Medications Home Medications and Allergies Home Medications ?Medication ?Instructions ?Recorded ?Confirmed ?Type metoprolol succinate 50 mg capsule 50 mg PO BID 01/30/22 01/24/25 History sprinkle, ext. release 24 hr simvastatin 20 mg tablet 20 mg PO QPM 01/30/22 01/23/25 History alendronate 70 mg tablet 70 mg PO QWEEK 12/28/24 01/24/25 History gemfibrozil 600 mg tablet 600 mg PO BID 12/28/24 01/24/25 History lisinopril 10 mg tablet 10 mg PO QDAY 12/28/24 01/23/25 History empagliflozin 12.5 mg-metformin 1 tab PO BID 01/23/25 01/23/25 History 500 mg tablet (Synjardy) hydroxyzine pamoate 25 mg capsule 25 mg PO DAILY PRN itching 01/23/25 01/23/25 History metoprolol tartrate 50 mg tablet 50 mg PO Q12H 01/23/25 01/23/25 History ondansetron 4 mg disintegrating 4 mg PO Q12H PRN nausea and 01/23/25 01/23/25 History tablet vomiting pioglitazone 30 mg tablet 30 mg PO DAILY 01/23/25 01/23/25 History sitagliptin phosphate 100 mg 100 mg PO DAILY 01/23/25 01/23/25 History tablet (Januvia) glipizide 5 mg tablet 5 mg PO .qdac 01/24/25 01/24/25 History insulin degludec 100 unit/mL (3 32 unit subcut QPM 01/24/25 01/24/25 History mL) subcutaneous pen insulin glargine-yfgn 100 unit/mL 10 unit subcut QPM 01/24/25 01/24/25 History (3 mL) subcutaneous pen lancets 33 gauge (OneTouch Delica 01/24/25 01/24/25 History Plus Lancet) pen needle, diabetic 32 gauge x 01/24/25 01/24/25 History 5/ (Mary 2nd Gen Pen Needle) vitamin B complex-vitamin C-folic 1 tab PO QDAY 01/24/25 01/24/25 History acid 0.8 mg tablet (Greta-Jack) Allergies Allergy/AdvReac Type Severity Reaction Status Date / Time No Known Allergies Allergy Verified 12/28/24 13:05 Visit Medications Acetaminophen (Acetaminophen 325 Mg Tablet) 650 mg PO Q6H PRN PRN Reason: Fever >99.9 Stop: 02/22/25 21:12 Dextrose (Dextrose 50%-Water Inj 50 Ml Syringe) 25 ml IV [id number] PRN PRN Reason: Blood Sugar - Low Famotidine (Famotidine Inj 10 Mg/Ml Vial 2 Ml) 20 mg IVP Q12HR ELVIA Stop: 02/23/25 08:59 Last Admin: 01/24/25 09:03 Dose: 20 mg Insulin Human Regular 100 unit (/ IV Miscellaneous Supplies) 100 mls @ 5.443 mls/hr IV .[id number] PRN; Protocol PRN Reason: PER PROTOCOL Stop: 02/22/25 17:36 Last Titration: 01/24/25 06:00 Dose: 0.1 unit/kg/hr, 5.443 mls/hr Potassium Chloride (Kcl Ivpb) 10 meq in 100 mls @ 100 mls/hr IV .Q1H PRN PRN Reason: IF POTASSIUM LESS THAN 3.3 Stop: 02/22/25 21:12 Magnesium Sulfate (Magnesium Sulfate Ivpb) 2 gm in 50 mls @ 25 mls/hr IV .Q2H PRN PRN Reason: PER DKA PROTOCOL Stop: 02/22/25 21:12 Dextrose/Lactated Ringer's (D5-Lr) 1,000 mls @ 250 mls/hr IV .Q4H PRN PRN Reason: PER PROTOCOL Stop: 02/22/25 21:12 Potassium Chloride 20 meq/ (Lactated Ringer's) 1,010 mls @ 250 mls/hr IV .Q4H3M PRN PRN Reason: K LEVEL 3.3 TO 5.3mM/L Stop: 02/22/25 21:12 Potassium Chloride 40 meq/ (Lactated Ringer's) 1,020 mls @ 250 mls/hr IV .Q4H5M PRN PRN Reason: K LEVEL < 3.3 mM/L Stop: 02/22/25 21:12 Potassium Chloride 40 meq/ (Dextrose/Lactated Ringer's) 1,020 mls @ 250 mls/hr IV .Q4H5M PRN PRN Reason: K LEVEL < 3.3mM/L Stop: 02/22/25 21:12 Potassium Cl/Dextrose/Lact Ringer's (Kcl 20 Meq/L In D5-Lr) 20 meq in 1,000 mls @ 250 mls/hr IV .Q4H PRN PRN Reason: K LEVEL 3.3 TO 5.3 mM/L Potassium Chloride (Kcl Ivpb) 10 meq in 100 mls @ 50 mls/hr IV PRN PRN PRN Reason: K LEVEL 3.3 to 5.3 & BG > 200 Stop: 02/22/25 21:12 Last Admin: 01/23/25 21:51 Dose: 50 mls/hr Potassium Phosphate (Pot Phos 15 Mmol In Ns 250 Ml) 15 mmol in 250 mls @ 62.5 mls/hr IV PRN PRN PRN Reason: Phosphate <= 1mg/dL Stop: 02/22/25 21:12 Sodium Phosphate 15 mmol/ (Sodium Chloride) 255 mls @ 62.5 mls/hr IV .Q4H5M PRN PRN Reason: Phosphate <= 1mg/dL and K> than 5.3 Stop: 02/22/25 21:12 Sodium Chloride (Ns 0.45%) 1,000 mls @ 250 mls/hr IV .Q4H ELVIA Stop: 02/22/25 23:41 Last Admin: 01/24/25 02:59 Dose: 250 mls/hr Lactated Ringer's (Lactated Ringers) 1,000 mls @ 150 mls/hr IV .Q6H40M PRN PRN Reason: PER PROTOCOL Stop: 01/24/25 21:12 Last Admin: 01/24/25 12:09 Dose: 150 mls/hr Norepinephrine/Dextrose (Levophed In D5w 8mg/250ml) 8 mg in 250 mls @ 5.103 mls/hr IV .Q24H PRN; Protocol PRN Reason: PER PROTOCOL Stop: 02/23/25 08:18 Piperacillin/Tazobactam/Dextrose (Zosyn) 3.375 gm in 50 mls @ 100 mls/hr IV Q8HR ELVIA; Protocol Stop: 01/31/25 08:44 Last Admin: 01/24/25 09:03 Dose: 100 mls/hr Ondansetron HCl (Ondansetron Inj 2 Mg/Ml Inj 2 Ml) 4 mg IVP Q6H PRN; Protocol PRN Reason: NAUSEA OR VOMITING Stop: 02/22/25 21:12 Last Admin: 01/24/25 04:49 Dose: 4 mg Pantoprazole Sodium (Pantoprazole Inj 40 Mg Vial) 40 mg IVP QDAY [facility] Stop: 02/23/25 07:14 Last Admin: 01/24/25 09:08 Dose: Not Given Sodium Bicarbonate (Sodium Bicarb Inj 8.4% Syr 50 Ml Syringe) 50 ml IV Q4HR PRN PRN Reason: For ph <= to 7.0 Stop: 02/22/25 21:12 Discontinued Medications Albuterol/Ipratropium (Albuterol/Ipratropium (Duoneb) Rt Radha 3 Ml Nebu) 3 ml INH X1 ONE Stop: 01/23/25 16:26 Last Admin: 01/23/25 17:05 Dose: 3 ml Calcium Chloride (Calcium Chloride 10% Inj 10 Ml Syrg) 10 ml IV X1 ONE Stop: 01/23/25 16:26 Last Admin: 01/23/25 18:42 Dose: 10 ml Dextrose (Dextrose 50%-Water Inj 50 Ml Syringe) 50 ml IVP X1 ONE Stop: 01/23/25 16:27 Last Admin: 01/23/25 18:48 Dose: 50 ml Enoxaparin Sodium (Enoxaparin Sod Inj 40 Mg/0.4 Ml Syringe) 30 mg SC QPM [facility] Stop: 02/07/25 20:59 Enoxaparin Sodium (Enoxaparin Sod Inj 40 Mg/0.4 Ml Syringe) 40 mg SC QDAY [facility] Stop: 02/07/25 09:44 Sodium Chloride (Ns) 1,000 mls @ 999 mls/hr IV .Q1H1M ONE Stop: 01/23/25 15:58 Last Infusion: 01/23/25 16:21 Dose: Infused Sodium Chloride (Ns) 1,000 mls @ 999 mls/hr IV .Q1H1M ONE Stop: 01/23/25 17:17 Last Infusion: 01/23/25 17:23 Dose: Infused Sodium Chloride (Ns) 1,000 mls @ 999 mls/hr IV .Q1[facility] ONE Stop: 01/23/25 22:07 Last Admin: 01/23/25 21:26 Dose: Not Given Piperacillin/Tazobactam/Dextrose (Zosyn) 3.375 gm in 50 mls @ 100 mls/hr IV X1 ONE; Protocol Stop: 01/23/25 21:36 Last Admin: 01/23/25 21:26 Dose: Not Given Lactated Ringer's (Lactated Ringers) 1,000 mls @ 250 mls/hr IV .Q4H PRN PRN Reason: PER PROTOCOL Stop: 01/24/25 21:12 Sodium Chloride (Ns 0.45%) 1,000 mls @ 150 mls/hr IV .Q6H40M ELVIA Stop: 02/22/25 21:24 Last Admin: 01/23/25 22:03 Dose: Not Given Sodium Chloride (Ns 0.45%) 1,000 mls @ 150 mls/hr IV .Q6H40M ELVIA Stop: 02/22/25 22:14 Last Admin: 01/23/25 22:27 Dose: Not Given Sodium Chloride (Ns 0.45%) 1,000 mls @ 999 mls/hr IV .Q1H1M ELVIA Stop: 02/22/25 22:16 Last Infusion: 01/23/25 22:32 Dose: 0 mls/hr Lactated Ringer's (Lactated Ringers) 1,000 mls @ 999 mls/hr IV .Q1[facility] ONE Stop: 01/24/25 08:08 Last Admin: 01/24/25 07:25 Dose: 999 mls/hr Lactated Ringer's (Lactated Ringers) 1,000 mls @ 999 mls/hr IV .Q1H1M ONE Stop: 01/24/25 09:46 Last Admin: 01/24/25 08:58 Dose: 999 mls/hr Albumin Human (Albuminex 25% Ivpb) 25 gm in 100 mls @ 100 mls/hr IV X1 ONE Stop: 01/24/25 12:44 Last Admin: 01/24/25 12:09 Dose: 100 mls/hr Insulin Human Regular (Insulin Hum Regular 1 Unit/0.01 Ml (Per Unit)) 10 unit IV X1 ONE Stop: 01/23/25 16:26 Last Admin: 01/23/25 18:39 Dose: 10 unit Ondansetron HCl (Ondansetron Inj 2 Mg/Ml Inj 2 Ml) 4 mg IVP X1 ONE; Protocol Stop: 01/24/25 09:42 Last Admin: 01/24/25 09:45 Dose: 4 mg Pharmacy Consult (Vancomycin Pharmacy To Dose 1 Each Each) 1 each IV QDAY ONE Stop: 01/23/25 21:09 Last Admin: 01/23/25 21:27 Dose: Not Given Sevelamer Carbonate (Sevelamer Carbonate 800 Mg Tablet) 400 mg PO X1 ONE Stop: 01/23/25 21:20 Last Admin: 01/23/25 22:03 Dose: Not Given Sodium Polystyrene Sulfonate (Sod Polystyrene Sulfon Susp 15 Gm/60 Ml Btl) 30 gm PO X1 ONE Stop: 01/23/25 16:26 Last Admin: 01/23/25 19:25 Dose: 30 gm Assessment & Plan Plan 74-year-old female with IDDM2, CKD, HTN, and CAD admitted for HHS complicated by STEVEN and severe hypernatremia, now post?exploratory laparotomy and small bowel resection for ischemic bowel, currently in ICU on low-dose pressor support with improving renal function and down-trending lactate. # Acute Kidney Injury on CKD STEVEN likely multifactorial, with prerenal etiology due to dehydration, ischemic insult secondary to bowel ischemia, and osmotic diuresis from HHS. Renal function improving (Cr 3.0 -> 2.6), but low urine output. No dialysis indicated at this time. Plan: Continue strict I/O monitoring Maintain MAP >65; continue norepinephrine support as needed Avoid nephrotoxins and contrast Reassess for dialysis if worsening acidosis, hyperkalemia, or uremia # Hypernatremia (Corrected Na 156) Hypernatremia secondary to dehydration, hyperosmolar state, and HHS. Sodium improving with fluid correction, targeting 155 mEq/L for today. Plan: Continue LR 150 mls/hr Target correction to 155 mEq/L today, avoid >10?12 mEq/L/24h correction Monitor Na and adjust fluid rates accordingly # Metabolic Acidosis (AGMA) AGMA with anion gap of 22.3; elevated, likely from lactic acidosis due to ischemic bowel and STEVEN. pH 7.25, CO2 17.7. Plan: Avoid bicarbonate therapy unless pH <7.1 Repeat ABG and lactate as needed Monitor for further electrolyte shifts # Lactic Acidosis (improving) Improving lactate from 5.8 to 4.9, though still elevated due to mesenteric ischemia and septic physiology. Lactate trending down with fluid and pressor support. Plan: Continue fluid and vasopressor support Continue broad-spectrum antibiotics (Zosyn) Trend lactate until normalized # HHS / DKA overlap (improving) Hyperglycemia improving (BG down to 320 from 970), anion gap improving. Continuing insulin drip. 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 post-op care per surgery #Type 2 Diabetes Mellitus # Macrocytic Anemia #Hypertension #CAD #HLD #Pneumonia Management per ICU team ----- Plan discussed with attending physician Dr. Maria Fernanda Kaplan MD PGY-1 Internal Medicine Attending Provider Attestation/Addendum Patient seen and examined with resident physician Dr. Kaplan. Note reviewed, agree with findings and recommendations. Patient remains in ICU. Admitted with significant elevation in blood sugars, hypernatremia. Acute abdomen noted. Surgical consultation requested. Care discussed with ICU team. Continue with IV fluids. Thank you Dr. Barclay for allowing me to participate in the care of Ms. Slade
[2025-01-24 15:44] LABS: Lactate (Lactic Acid) 2.3 mMol/L (0.4-2.0)
[2025-01-24] MEDS: INSULIN REG 100 UNITS/100 ML 100 UNIT in PRE-MIXED 1 BAG IV (15:49)
[2025-01-24 16:06] LABS: INR 1.2 (0.9-1.3); Partial Thromboplastin Time 36.8 Seconds (22.0-36.0); Prothrombin Time 12.6 Seconds (9.0-12.2)
[2025-01-24 16:18] LABS: Albumin, Serum 3.7 gm/dL (3.4-4.8); Anion Gap 16 (7-16); BUN/Creatinine Ratio 24 Ratio (12-20); Blood Urea Nitrogen 64 mg/dL (9-23); Calcium 7.2 mg/dL (8.3-10.6); Calcium (Corrected) 7.4 mg/dL (8.5-10.1); Carbon Dioxide 17.2 mMol/L (20.0-31.0); Chloride 115 mMol/L (98-107); Creatinine (Component) 2.7 mg/dL (0.6-1.3); Estimated Creatinine Clearance 14.2 mL/min (>60); Magnesium 2.1 mg/dL (1.6-2.6); Osmolality,Calculated 330 (275-295); Phosphorous 4.2 mg/dL (2.4-5.1); Potassium 5.2 mMol/L (3.4-5.1); Sodium 148 mMol/L (136-145); Triglycerides 117 mg/dL (30-150); eGFR 18 See Note
[2025-01-24 16:21] LABS: Glucose 427 mg/dL (74-106)
--- NOTE | 2025-01-24 17:00 | PD.INTPROC ---
PROCEDURES: Procedure Date / Time 01/24/25 1700 Central Line Placement Right IJ: Indication(s): shock Informed consent obtained: from patient and obtained from surrogate decision maker (both available and consent was obtained with aid of in house Estonian Interpretor) Time out done, and the following verified: correct patient, side and site, procedure and patient position Patient placed on monitor/pulse ox: Yes Hand Hygiene: scrub and alcohol-based hand rub Max Sterile Barrier Techniques used: cap, mask, sterile gown, sterile gloves and sterile full body drape Central line prep: Chlorhexidine scrub Local anesthesia used: lidocaine 1% Amount of anesthesia used (mL): 3 Ultrasound used for placement: Yes Sterile Technique if Ultrasound used, including sterile gel: yes Central line lumen inserted: triple Post procedure: sutured in place, good blood return, all ports aspirated, flushed, capped and sterile dressing applied Post procedure x-ray: tip of catheter in good position (slightly distal) Patient tolerated procedure: well EBL(ml): 0 Complications: none
[2025-01-24 17:49] LABS: Lactate (Lactic Acid) 2.4 mMol/L (0.4-2.0)
[2025-01-24] MEDS: Norepinephrine/D5W 8mg/250ml 8 MG/250 ML BAG 7.144 MG IV (17:58)
[2025-01-24 18:26] LABS: Albumin, Serum 3.7 gm/dL (3.4-4.8); Anion Gap 14 (7-16); BUN/Creatinine Ratio 25 Ratio (12-20); Blood Urea Nitrogen 65 mg/dL (9-23); Calcium 7.2 mg/dL (8.3-10.6); Calcium (Corrected) 7.4 mg/dL (8.5-10.1); Carbon Dioxide 19.3 mMol/L (20.0-31.0); Chloride 116 mMol/L (98-107); Creatinine (Component) 2.6 mg/dL (0.6-1.3); Estimated Creatinine Clearance 14.8 mL/min (>60); Magnesium 2.1 mg/dL (1.6-2.6); Osmolality,Calculated 332 (275-295); Phosphorous 4.8 mg/dL (2.4-5.1); Potassium 5.0 mMol/L (3.4-5.1); Sodium 149 mMol/L (136-145); eGFR 19 See Note
[2025-01-24 18:27] LABS: Glucose 418 mg/dL (74-106)
[2025-01-24] MEDS: CALCIUM GLUC/NS 1000MG IVPB 1,000 MG/50 ML BAG 50 MG IV (18:38)
[2025-01-24 18:39] LABS: Reflex Lactate? Y
[2025-01-24] MEDS: ACETAMINOPHEN IVPB 1,000 MG/100 ML VIAL 250 MG IV (18:39)
--- NOTE | 2025-01-24 18:48 | XR_ITS ---
EXAMINATION: AP chest single view TECHNIQUE: AP portable semiupright chest single view Date and time: January 24, 2025, 1854 hours, comparison January 24, 2025 INDICATIONS: Hypoxia today. FINDINGS: Bibasilar pneumonia Mild associated heart failure with mild prominence left ventricle and prominent vascular congestion including central vascular engorgement Orogastric tube coiled in stomach Right internal jugular central line tip right atrium Prominent osteopenia IMPRESSION: Significant bibasilar pneumonia Mild associated heart failure
[2025-01-24 19:05] LABS: Base Excess -11 (-3-3); HCO3 18 mEq/L (20-26); Inspired Oxygen, FIO2 15 %; O2 Saturation 77 % (91-98); PCO2 60 mmHg (32.0-48.0)
[2025-01-24 19:15] LABS: Allen Test Performed/OK; PO2 46 mmHg (83-108); Puncture Site Left Radial; pH, Arterial 7.09 (7.35-7.45)
[2025-01-24] MEDS: IPRATROPIUM RT 0.5 MG/ 2.5 ML NEBU INH (19:44)
[2025-01-24] MEDS: LEVALBUTEROL RT 0.63 MG/3 ML NEBU INH (19:44)
[2025-01-24] MEDS: HYDROmorphone INJ 2 MG/ML VIAL 0.5 MG IVP (20:33)
[2025-01-24 20:45] LABS: Reflex Lactate? Y
[2025-01-24 21:06] LABS: Base Excess -8 (-3-3); HCO3 19 mEq/L (20-26); Inspired Oxygen, FIO2 100 %; O2 Saturation 100 % (91-98); PCO2 44 mmHg (32.0-48.0); PO2 129 mmHg (83-108); pH, Arterial 7.24 (7.35-7.45)
[2025-01-24 21:08] LABS: Allen Test Performed/OK; Puncture Site Left Radial
--- NOTE | 2025-01-24 21:12 | PC.RT ---
Patient not able to spontaneously expectorate any sputum. MD aware.
[2025-01-24 21:34] LABS: Lactate (Lactic Acid) 3.2 mMol/L (0.4-2.0)
[2025-01-24] MEDS: VASOPRESSIN IN NS IVPB 20 UNIT/100 ML BAG 9 UNIT IV (21:37)
[2025-01-24 22:00] LABS: Albumin, Serum 3.4 gm/dL (3.4-4.8); Anion Gap 12 (7-16); BUN/Creatinine Ratio 27 Ratio (12-20); Blood Urea Nitrogen 70 mg/dL (9-23); Calcium 7.6 mg/dL (8.3-10.6); Calcium (Corrected) 8.1 mg/dL (8.5-10.1); Carbon Dioxide 21.0 mMol/L (20.0-31.0); Chloride 116 mMol/L (98-107); Creatinine (Component) 2.6 mg/dL (0.6-1.3); Estimated Creatinine Clearance 14.8 mL/min (>60); Glucose 250 mg/dL (74-106); Magnesium 2.2 mg/dL (1.6-2.6); Osmolality,Calculated 324 (275-295); Phosphorous 3.8 mg/dL (2.4-5.1); Potassium 4.6 mMol/L (3.4-5.1); Sodium 149 mMol/L (136-145); eGFR 19 See Note
[2025-01-24] MEDS: Norepinephrine/D5W 8mg/250ml 8 MG/250 ML BAG 23.473 MG IV (23:31)
[2025-01-25] VITALS (110 sets, daily range): BP systolic 81–177; BP diastolic 40–120; PULSE 83–111; RESP 12–24; TEMP 36.8–37.4; O2SAT 87–100; BMI 22.6
[2025-01-25 00:32] LABS: Reflex Lactate? Y
[2025-01-25] MEDS: ACETAMINOPHEN IVPB 1,000 MG/100 ML VIAL 250 MG IV ×3 (00:56→12:00)
[2025-01-25 02:03] LABS: Lactate (Lactic Acid) 2.6 mMol/L (0.4-2.0)
[2025-01-25 02:24] LABS: Albumin, Serum 3.3 gm/dL (3.4-4.8); Anion Gap 12 (7-16); BUN/Creatinine Ratio 28 Ratio (12-20); Blood Urea Nitrogen 66 mg/dL (9-23); Calcium 7.3 mg/dL (8.3-10.6); Calcium (Corrected) 7.9 mg/dL (8.5-10.1); Carbon Dioxide 19.6 mMol/L (20.0-31.0); Chloride 117 mMol/L (98-107); Creatinine (Component) 2.4 mg/dL (0.6-1.3); Estimated Creatinine Clearance 16.0 mL/min (>60); Glucose 171 mg/dL (74-106); Magnesium 2.0 mg/dL (1.6-2.6); Osmolality,Calculated 319 (275-295); Phosphorous 3.4 mg/dL (2.4-5.1); Potassium 4.8 mMol/L (3.4-5.1); Sodium 149 mMol/L (136-145); eGFR 21 See Note
[2025-01-25] MEDS: DEXTROSE 5%-LACTATED RINGERS 1,000 ML 150 ML IV (02:30)
[2025-01-25] MEDS: DEXTROSE 5%-NS 1,000 ML 150 ML IV (03:00)
[2025-01-25 05:01] LABS: Reflex Lactate? Y
[2025-01-25] MEDS: PIPER/TAZO 3.375 GM PREMIX 3.375 GM/50 ML BAG IV ×3 (05:10→21:34)
[2025-01-25 05:17] LABS: Lactate (Lactic Acid) 2.5 mMol/L (0.4-2.0)
[2025-01-25 05:24] LABS: Basophils # (Auto) 0.0 Thou/mm3 (0.0-0.2); Basophils % (Auto) 1 % (0-2.5); Eosinophils # (Auto) 0.1 Thou/mm3 (0.0-0.5); Eosinophils % (Auto) 1 % (0-10); Immature Granulocytes Auto 0.07 Thou/mm3 (0.00-0.00); Lymphocytes # (Auto) 1.2 Thou/mm3 (1.0-4.8); Lymphocytes % (Auto) 26 % (10-50); Mean Corpuscular HGB Conc 32.3 g/dl (31.0-37.0); Mean Corpuscular Hemoglobin 30.6 pg (25.0-35.0); Mean Corpuscular Volume 95 fL (80-100); Monocytes # (Auto) 0.2 Thou/mm3 (0.0-0.8); Monocytes % (Auto) 3 % (0-12); Neutrophils # (Auto) 3.3 Thou/mm3 (1.8-7.7); Neutrophils % (Auto) 68 % (37-80); Nucleated Red Blood Cell # 0.00 Thou/mm3 (0.00-0.00); Nucleated Red Blood Cell % 0 /100 WBC (0); Platelet Count 126 Thou/mm3 (140-440); RDW Standard Deviation 46.4 fL (36.4-46.3); Red Blood Count 2.06 Miln/mm3 (4.00-5.20); White Blood Count 4.8 Thou/mm3 (3.6-11.0)
[2025-01-25 05:30] LABS: Hemoglobin 6.3 g/dL (12.0-16.0)
[2025-01-25 05:31] LABS: Hematocrit 19.5 % (36.0-46.0)
[2025-01-25 05:51] LABS: Albumin, Serum 3.3 gm/dL (3.4-4.8); Anion Gap 12 (7-16); BUN/Creatinine Ratio 29 Ratio (12-20); Blood Urea Nitrogen 69 mg/dL (9-23); Calcium 7.2 mg/dL (8.3-10.6); Calcium (Corrected) 7.8 mg/dL (8.5-10.1); Carbon Dioxide 20.8 mMol/L (20.0-31.0); Chloride 118 mMol/L (98-107); Creatinine (Component) 2.4 mg/dL (0.6-1.3); Estimated Creatinine Clearance 16.0 mL/min (>60); Glucose 188 mg/dL (74-106); Magnesium 2.0 mg/dL (1.6-2.6); Osmolality,Calculated 324 (275-295); Phosphorous 3.3 mg/dL (2.4-5.1); Potassium 4.8 mMol/L (3.4-5.1); Sodium 151 mMol/L (136-145); eGFR 21 See Note
[2025-01-25] MEDS: VASOPRESSIN IN NS IVPB 20 UNIT/100 ML BAG 9 UNIT IV (05:59)
[2025-01-25 06:16] LABS: Hematocrit 18.8 % (36.0-46.0); Hemoglobin 6.2 g/dL (12.0-16.0)
--- NOTE | 2025-01-25 08:00 | ESPR_ITS ---
Documentation for date of: 01/25/25 Subjective Subjective Interval history: 74-year-old [place]er-speaking female with a past medical history of insulin- dependent type 2 diabetes mellitus, CKD (baseline Cr ~1.1?1.3), hypertension, hyperlipidemia, and CAD, admitted on 01/23/25 for HHS/DKA overlap following 3 days of nausea, vomiting, poor oral intake, and progressive weakness. She was initially found to have severe hyperglycemia (BG >1500), corrected sodium 171, and STEVEN with Cr 3.4 on admission. During hospitalization, she developed worsening abdominal distension and rising lactate (2.9 -> 5.8). CT abdomen revealed extensive small bowel ischemia with pneumoperitoneum and mesenteric air. She underwent emergent exploratory laparotomy today with resection of approximately 280 cm of ischemic jejunum and ileum, leaving 18 cm of proximal jejunum and 101 cm of terminal ileum, followed by primary anastomosis. Nephrology consulted for STEVEN management, fluid and electrolyte optimization, and assessment of renal replacement needs. 01/24/2025: This morning, patient was seen in the ICU prior to surgery. She appeared lethargic but arousable, reported ongoing nausea and abdominal discomfort. No bowel movement since last 5 days and no gas passed since the last . Daughter at bedside noted patient had increasing abdominal distension overnight and appeared weaker. Patient denied chest pain or shortness of breath. Brunson in place with minimal urine output noted. Patient was scheduled for exploratory laparotomy following CT findings consistent with pneumoperitoneum and ischemic small bowel with mesenteric air. After surgery, patient was transferred back to the ICU. She was extubated in the operating room and is now awake but tired, able to respond to questions appropriately. On low dose pressors. Denies chest pain, shortness of breath, or worsening abdominal pain. Brunson catheter remains in place, urine output being monitored. Family at bedside, supportive. Labs: WBC 6.9, Hgb 9.1, Hct 27.9, Plt 151, Na 151 (corrected 156), K 4.4, Cl 116, CO2 17.7, AG 17, BUN 68, Cr 2.6 (from 3.0 yesterday, baseline 1.1?1.3), GFR 19, Glucose 320 (prior 970 -> 487 -> 320), Ca 8.9, Phos 4.1, Mg 2.4, Albumin 3.0, Lactic acid 4.9 ( from 5.8), VBG pH 7.25 / pCO2 39, Lipase 132. 01/25/2025 patient currently seen in ICU. Dr. Barclay at bedside. Yesterday she had emergency surgical abdomen and small bowel resection and anastomosis done by Dr. Quinonez. Creatinine improving. Patient has good urine output. Family at bedside. Blood sugar seems to be better. Sodium still elevated. Continue with D5W as needed versus half NS. Review of Systems Review of Systems Narrative Review of Systems: Denies any chest pain, shortness of breath. Denies any nausea, vomiting. Exam Vital Signs Temp Pulse Resp BP Pulse Ox O2 Del Method O2 Flow Rate 36.8 C 103 H 19 106/88 H 98 High Flow Nasal Cannula 40 01/25/25 04:00 01/25/25 07:45 01/25/25 07:45 01/25/25 07:45 01/25/25 07:45 01/25/25 04:00 01/25/25 06:52 FiO2 70 01/25/25 06:52 Narrative Exam General: Awake, alert, sitting upright in chair, no acute distress. HEENT: PERRL, oral mucosa moist. CVS: S1S2 regular, no murmurs, no JVD. Resp: Clear to auscultation bilaterally. Abdomen: Soft, mild distension, non-tender, bowel sounds present. Extremities: No edema. Neuro: Alert and oriented ?3, moves all extremities. Skin: Warm, dry, incision clean and intact. Objective Labs 01/26/25 05:05 01/26/25 20:12 Labs: Laboratory Results - last 24 hr 01/24/25 01/24/25 01/24/25 05:00 09:15 15:24 WBC RBC Hgb Hct MCV MCH MCHC RDW Std Deviation Plt Count Neut % (Auto) Lymph % (Auto) [place] % (Auto) Eos % (Auto) Baso % (Auto) Neut # (Auto) Lymph # (Auto) [place] # (Auto) Eos # (Auto) Baso # (Auto) Immature Gran # (Auto) Absolute Nucleated RBC Immature Gran % Nucleated RBC % PT 12.6 H INR 1.2 APTT 36.8 H Puncture Site ABG pH ABG pCO2 ABG pO2 ABG HCO3 ABG O2 Saturation ABG Base Excess FiO2 Sodium 151 H 148 H Potassium 4.4 5.2 H D Chloride 116 H 115 H Carbon Dioxide 17.7 L 17.2 L Anion Gap 17 H 16 BUN 68 H 64 H Creatinine 2.6 H 2.7 H Estim Creat Clear Calc 14.8 L 14.2 L eGFR 19 L 18 L BUN/Creatinine Ratio 26 H 24 H Glucose 320 H D 427 H* D Calculated Osmolality 331 H 330 H Lactic Acid 4.9 H* 2.3 H Calcium 8.1 L 7.2 L Corrected Calcium 8.9 7.4 L D Phosphorus 4.1 4.2 Magnesium 2.4 2.1 Total Bilirubin 0.2 L Direct Bilirubin < 0.1 AST 33 ALT 16 Alkaline Phosphatase 96 D Lactate Dehydrogenase 189 Total Protein 4.5 L Albumin 3.0 L D 3.7 D Triglycerides 117 Lipase 132 H Free T4 1.16 Blood Type O Positive Antibody Screen NEGATIVE Crossmatch See Detail Blood Bank Wristband ID Yes 01/24/25 01/24/25 01/24/25 17:40 18:55 20:50 WBC RBC Hgb Hct MCV MCH MCHC RDW Std Deviation Plt Count Neut % (Auto) Lymph % (Auto) [place] % (Auto) Eos % (Auto) Baso % (Auto) Neut # (Auto) Lymph # (Auto) [place] # (Auto) Eos # (Auto) Baso # (Auto) Immature Gran # (Auto) Absolute Nucleated RBC Immature Gran % Nucleated RBC % PT INR APTT Puncture Site Left Radial Left Radial ABG pH 7.09 L* 7.24 L D ABG pCO2 60 H 44 D ABG pO2 46 L* 129 H D ABG HCO3 18 L 19 L ABG O2 Saturation 77 L 100 H ABG Base Excess -11 L -8 L FiO2 15 100 Sodium 149 H Potassium 5.0 Chloride 116 H Carbon Dioxide 19.3 L Anion Gap 14 BUN 65 H Creatinine 2.6 H Estim Creat Clear Calc 14.8 L eGFR 19 L BUN/Creatinine Ratio 25 H Glucose 418 H* Calculated Osmolality 332 H Lactic Acid 2.4 H Calcium 7.2 L Corrected Calcium 7.4 L Phosphorus 4.8 Magnesium 2.1 Total Bilirubin Direct Bilirubin AST ALT Alkaline Phosphatase Lactate Dehydrogenase Total Protein Albumin 3.7 Triglycerides Lipase Free T4 Blood Type Antibody Screen Crossmatch Blood Bank Wristband ID 01/24/25 01/25/25 01/25/25 21:27 01:42 04:50 WBC 4.8 RBC 2.06 L Hgb 6.3 L* D Hct 19.5 L* MCV 95 MCH 30.6 MCHC 32.3 RDW Std Deviation 46.4 H Plt Count 126 L Neut % (Auto) 68 Lymph % (Auto) 26 [place] % (Auto) 3 Eos % (Auto) 1 Baso % (Auto) 1 Neut # (Auto) 3.3 Lymph # (Auto) 1.2 [place] # (Auto) 0.2 Eos # (Auto) 0.1 Baso # (Auto) 0.0 Immature Gran # (Auto) 0.07 H Absolute Nucleated RBC 0.00 Immature Gran % 1 H Nucleated RBC % 0 PT INR APTT Puncture Site ABG pH ABG pCO2 ABG pO2 ABG HCO3 ABG O2 Saturation ABG Base Excess FiO2 Sodium 149 H 149 H 151 H Potassium 4.6 4.8 4.8 Chloride 116 H 117 H 118 H Carbon Dioxide 21.0 19.6 L 20.8 Anion Gap 12 12 12 BUN 70 H 66 H 69 H Creatinine 2.6 H 2.4 H 2.4 H Estim Creat Clear Calc 14.8 L 16.0 L 16.0 L eGFR 19 L 21 L 21 L BUN/Creatinine Ratio 27 H 28 H 29 H Glucose 250 H D 171 H D 188 H Calculated Osmolality 324 H 319 H 324 H Lactic Acid 3.2 H 2.6 H 2.5 H Calcium 7.6 L 7.3 L 7.2 L Corrected Calcium 8.1 L 7.9 L 7.8 L Phosphorus 3.8 3.4 3.3 Magnesium 2.2 2.0 2.0 Total Bilirubin Direct Bilirubin AST ALT Alkaline Phosphatase Lactate Dehydrogenase Total Protein Albumin 3.4 3.3 L 3.3 L Triglycerides Lipase Free T4 Blood Type Antibody Screen Crossmatch Blood Bank Wristband ID 01/25/25 05:55 WBC RBC Hgb 6.2 L* Hct 18.8 L* MCV MCH MCHC RDW Std Deviation Plt Count Neut % (Auto) Lymph % (Auto) [place] % (Auto) Eos % (Auto) Baso % (Auto) Neut # (Auto) Lymph # (Auto) [place] # (Auto) Eos # (Auto) Baso # (Auto) Immature Gran # (Auto) Absolute Nucleated RBC Immature Gran % Nucleated RBC % PT INR APTT Puncture Site ABG pH ABG pCO2 ABG pO2 ABG HCO3 ABG O2 Saturation ABG Base Excess FiO2 Sodium Potassium Chloride Carbon Dioxide Anion Gap BUN Creatinine Estim Creat Clear Calc eGFR BUN/Creatinine Ratio Glucose Calculated Osmolality Lactic Acid Calcium Corrected Calcium Phosphorus Magnesium Total Bilirubin Direct Bilirubin AST ALT Alkaline Phosphatase Lactate Dehydrogenase Total Protein Albumin Triglycerides Lipase Free T4 Blood Type Antibody Screen Crossmatch Blood Bank Wristband ID ABG Interpretation ABG results: 01/23/25 01/24/25 01/24/25 17:13 05:00 18:55 ABG pH 7.09 L* ABG pCO2 60 H ABG pO2 46 L* ABG HCO3 18 L ABG O2 Saturation 77 L ABG Base Excess -11 L VBG pH 7.22 L 7.25 L VBG pCO2 37 39 VBG pO2 137 H 43 D VBG Base Excess -12 L -10 L 01/24/25 20:50 ABG pH 7.24 L D ABG pCO2 44 D ABG pO2 129 H D ABG HCO3 19 L ABG O2 Saturation 100 H ABG Base Excess -8 L VBG pH VBG pCO2 VBG pO2 VBG Base Excess Assessment & Plan Additional Assessment & Plan Additional Plan: 74-year-old female with IDDM2, CKD, and CAD, previously in ICU for HHS and ischemic bowel now s/p resection, downgraded to floor. Renal function and hemodynamics improving, sodium trending up requiring ongoing correction with ? NS and q6h sodium checks. Continue conservative renal management, avoid nephrotoxins, and reassess daily. # Acute Kidney Injury on CKD (improving) STEVEN secondary to prerenal insult from prior hypotension, ischemia, and dehydration Renal function steadily improving (Cr 3.4 -> 1.8). Good urine output and hemodynamically stable. Plan: * Continue strict I/O and monitor urine output * Maintain adequate oral and IV hydration * Avoid nephrotoxins and adjust medication dosing for renal function * BMP daily while stable # Hypernatremia (Na 158, trending up) Likely due to free water deficit and recent osmotic diuresis. Sodium increased from 153 -> 157 -> 158. Plan: * Switched fluids to ? NS for slower correction; previously on D5?NS * Continue sodium checks q6h * Target Na 145 by tomorrow; avoid rapid correction * Encourage free water intake as tolerated post-op # Hyperchloremia (Cl 122) Secondary to IV fluid administration. Plan: * Continue ? NS * Monitor chloride with BMP trend # Metabolic Acidosis (resolved) Previously mixed AGMA from lactic acidosis and renal dysfunction; now resolved with lactate 1.3 and CO2 23.5. Plan: * No bicarbonate therapy indicated # Lactic Acidosis (resolved) Lactate normalized (1.3 from 5.8). Resolution following bowel resection and improved perfusion. Plan: * Continue hemodynamic monitoring and supportive care Other Active Problems: #Ischemic small bowel s/p resection and anastomosis ? post-op care per surgery #Type 2 Diabetes Mellitus #Macrocytic Anemia #Hypertension #CAD #HLD #Pneumonia Management per ICU team
[2025-01-25] MEDS: RINGERS LACTATED 1000 ML 1,000 ML 150 ML IV (08:07)
[2025-01-25 08:10] LABS: Reflex Lactate? Y
[2025-01-25 09:10] LABS: Lactic Acid, 3 HR 2.3 mMol/L (0.4-2.0)
[2025-01-25] MEDS: DEXTROSE 5%-LACTATED RINGERS 1,000 ML 75 ML IV ×2 (09:23→22:54)
[2025-01-25] MEDS: INSULIN DEGLUDEC 5 UNIT/0.05 ML (PER 5 UNITS) 20 UNIT SC (09:24)
[2025-01-25] MEDS: CALCIUM GLUCONATE 10% INJ 1 GM/10 ML VIAL IV (09:25)
--- NOTE | 2025-01-25 10:28 | ESPR_ITS ---
<Statement entered by Jesús Barclay MD - 01/26/25 12:10> TOTAL CC TIME:45 MIN I saw and evaluated the patient. I reviewed the resident?s note and agree with findings and plan as documented in the resident?s note. Upon my evaluation, this patient had a high probability of imminent or life- threatening deterioration due to septic shock which required my direct attention, intervention, and personal management. This time is exclusive of time spent on procedures, which are documented separately if performed. Renal function improving Remains vasodilated due to shock physiology but improving. Levophed dose is being weaned. Diabetes under better control now Continue ICU care; appropriately resuscitated <Statement entered by Arnold Barrett MD - 01/25/25 11:32> Patient was seen and examined in the ICU. Patient had exploratory laparotomy with resection of small intestine and anastomosis with large intestine due to gangrenous small intestine. Patient already had 2 bowel movements with no blood. Overnight, patient was hypoxic down to 70% requiring stat chest x-ray which showed atelectasis bibasilar. ABGs revealed acidotic pattern with pH 7.0 and pCO2 60. Patient could not be placed on BiPAP due to recent surgery therefore she was placed on high flow nasal cannula which improved her acidosis. Patient has been tolerating high flow and maintaining saturations. Currently at the setting of 60 and 40. Patient had acute drop in hemoglobin this morning therefore PRBC 1 unit was transfused. Will follow-up with post H&H. Recent blood sugars drop below 200 mg/dL and serum osmolarity 324 with corrected sodium 151 this morning. HHS resolved. Insulin drip was overlapped with 20 units degludec and drip was turned off. Sodium checks have been discontinued. We will hold chemical prophylaxis for DVT until hemoglobin stabilizes. If patient continues to have drop in hemoglobin we will likely investigate for other causes of bleeding other than surgery like peptic ulcer disease. GI is already on board. Patient's family was updated that patient had gangrenous intestine due to peripheral artery disease in the setting of uncontrolled long-term diabetes. 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 now she developed progressive peripheral arterial disease. She would need close follow-up with vascular surgeon as outpatient for possible intervention like thrombectomy or anticoagulation depending on CTA abdomen to evaluate for mesenteric arterial thrombosis as she still has risk for complications like gangrene of remaining at this time in future. We changed patient's fluid from D5 NS to D5 LR due to hyperchloremia at 75 cc to provide at least 80 g of carb as patient is not eating and drinking. She is only allowed to swallow ice chips with water per surgery recommendations. NG tube with suctioning was taken out. Will continue with Zosyn for antibiotic coverage. I discussed and supervised with the software intern physician who took care of this patient. I personally saw and examined the patient. I agree with most of the assessment and plan. Disclaimer: Despite multiple revisions, due to the dictation software being used, the document bellow may not be free of grammatical errors including phonetic/typographic errors. However, this does not deter from our commitment to providing health care in the patient's best interest in mind. Plan of care discussed with attending Physician Dr. Deny Barrett MD PGY-3 Documentation for date of: 01/25/25 Subjective Subjective Interval history: 01/25/25: During the night, the patient began desaturating to the 70s. Surgeon was consulted and recommended avoiding BIPAP, as positive pressure could cause gastric distension. Patient was placed on HFNC at 40 L/min with 100% O2 saturation. Ppatient exhibited shallow breathing, likely due to pain from surgery. A dose of Dilaudid 0.5 mg was given and an abdominal binder was applied. An ABG at 18:55 showed a pH of 7.09 and pCO2 of 44. A repeat ABG at 20:50 showed improvement with a pH of 7.24 and pCO2 of 44. Due to persistent hypotension, Levophed was increased to 0.2 mcg/kg/min, and vasopressin was added at 0.03 units/min, likely in response to the Dilaudid. Patient was on LR at 150 mL/hr, and blood glucose remained under 200, so fluids were switched to D5 LR around 1 AM. However, due to the sodium level of 135 and the need to avoid overcorrection, the fluids were changed to D5 NS at 150 mL/hr at 3 AM. Patient was gradually weaned off vasopressin, and Levophed was reduced to 0.03 mcg/kg/min, with MAP remaining in the 70s. In the past 24 hours, the patient received approximately 2L of fluid and had adequate urine output of 750 cc over the past 12 hours. This morning, patient's oxygen needs decreased and able to tolerate HFNC at 40 L/min with 80% saturation. RT is gradually decreasing the flow rate by increments of 20, and the patient is currently on 40 L/min with 60% saturation. Patient had a brown, formed bowel movement and is passing gas. NG tube had minimal output on intermittent suction and was removed. Surgeon instructed that the patient may have water or ice, but no other liquids at this time. Patient's IV fluids were switched to D5 LS due to hyperchloremia. Target sodium level for today is 142-143. Given that the patient's blood glucose levels have remained below 200, the insulin drip was discontinued, and 20 units of Lantus with ISS were started. Patient?s hemoglobin dropped from 9.1 to 6.2 overnight. This drop may be attributed to the surgery, although it is unclear, as hemoglobin was not checked postoperatively and was only reassessed this morning. One unit of pRBCs was transfused, and H&H will be monitored. If the hemoglobin does not improve with the transfusion, a GI bleed workup will be considered. Patient?s daughter was updated on the patient's hospital course thus far, and all questions were addressed. History of Present Illness: 74-year-old female with a medical history significant for insulin-dependent type 2 diabetes, hypertension, hyperlipidemia, and coronary artery disease presented to the ED on 01/24 with complaints of weakness and decreased oral intake over the past 2-3 days. She also reports associated nausea and vomiting. According to her family, she has been unable to retain food or fluids and has not been able to take her medications. Her last bowel movement occurred one day prior to presentation. Initially, the patient did not experience abdominal pain, but she began to develop abdominal discomfort during her time in the ED. She denies any history of hematemesis, hematochezia, chills, or weight loss. ED Course: -Initial vitals were BP 98/62, HR 92, RR 18, T 97.7F, O2 sat 95% on room air. -Labs significant for Hgb 11.1, MCV 101; PT 12.6, PTT 36.8; VBG pH 7.22, pCO2 37, pO2 137; corrected Na 171, K 6.6, AG 17, BUN 94, Cr 3.8, eGFR 12, glucose 1528, calculated osmolality 379, PO4 7.0, Mg 3.7, ALP 233, -Imaging included: Head CT unremarkable, CXR minor atelectasis left lower lobe. -In the ED, patient was given: NS 2L, Albuterol/Ipratropium 3ml INH x1, insulin regular 10 units IV x1, Calcium chloride 10 ml IV x1, Dextrose 50 mL IVP x1, Insulin drip, sodium polystytene sulfonate 30 mg PO x1. Patient was admitted for the work-up and management of HHS in the setting of poor oral intake and noncompliance with home insulin. Upon arrival to the ICU around 10 PM on 01/24, the patient was administered 1L NS, 1L of LR and maintenance fluids. Pantoprazole and ondansetron was also administered. An NG tube was placed for free water flushes due to hypernatremia. Patient subsequently developed worsening abdominal pain and dark brown vomitus. The NG tube was placed on low intermittent suction. On physical exam this morning, patient had significant abdominal distension and rebound tenderness. Overnight KUB revealed significant stool burden. A guaiac test on the vomitus was positive for blood. A stat chest, abdomen, and pelvis CT was ordered, which demonstrated abnormal ischemic small bowel, air and fluid distended, air in the wall of the small bowel and pneumoperitoneum, air droplets in the mesentery. A stat consult with general surgery was called. Right IJ central line placed. Patient underwent an emergent exploratory laparotomy. Approximately 280 cm of small bowel was resected, and a jejuno-ileal anastomosis was performed. Patient was extubated and transferred back to the ICU. Patient is receiving pressor support and supplemental oxygen therapy. Management with insulin drip and IV fluids to address hypernatremia and hyperosmolar hyperglycemic state continued. Exam Vital Signs Temp Pulse Resp BP Pulse Ox O2 Del Method O2 Flow Rate 99.2 F 106 H 18 108/47 L 99 High Flow Nasal Cannula 40 01/25/25 10:20 01/25/25 10:27 01/25/25 10:27 01/25/25 10:20 01/25/25 10:27 01/25/25 08:00 01/25/25 10: FiO2 70 01/25/25 10:27 Narrative Exam Physical Exam General: Elderly, frail, awake and alert but appears uncomfortable. NG tube in place to low intermittent suction with dark brown/black output noted. Head: Normocephalic, atraumatic. Eyes: Pupils equally round and reactive to light. Anicteric. Blind in left eye. Mouth/Throat: Dry mucous membranes. Heart: Regular rate and rhythm, no murmurs. No JVD. Peripheral pulses 2+ and symmetric in all extremities. Lungs: Clear to auscultation bilaterally. Non-labored respirations, symmetric chest rise, no use of accessory muscles. Abdomen: Abdominal binder present. Neurologic: Alert and oriented x3, no gross neurological deficit, and patient able to move all 4 extremities. Extremities: No clubbing, cyanosis, or edema. Capillary refill <2 seconds. Skin warm to touch, no mottling. Skin: No rashes, lesions, or ulcers. Psychiatric: Cooperative, appropriate mood and affect Objective Labs 01/25/25 14:10 01/25/25 14:10 Labs: Laboratory Results - last 24 hr 01/24/25 01/24/25 01/24/25 09:15 15:24 17:40 WBC RBC Hgb Hct MCV MCH MCHC RDW Std Deviation Plt Count Neut % (Auto) Lymph % (Auto) Calloway % (Auto) Eos % (Auto) Baso % (Auto) Neut # (Auto) Lymph # (Auto) Calloway # (Auto) Eos # (Auto) Baso # (Auto) Immature Gran # (Auto) Absolute Nucleated RBC Immature Gran % Nucleated RBC % PT 12.6 H INR 1.2 APTT 36.8 H Puncture Site ABG pH ABG pCO2 ABG pO2 ABG HCO3 ABG O2 Saturation ABG Base Excess FiO2 Sodium 148 H 149 H Potassium 5.2 H D 5.0 Chloride 115 H 116 H Carbon Dioxide 17.2 L 19.3 L Anion Gap 16 14 BUN 64 H 65 H Creatinine 2.7 H 2.6 H Estim Creat Clear Calc 14.2 L 14.8 L eGFR 18 L 19 L BUN/Creatinine Ratio 24 H 25 H Glucose 427 H* D 418 H* Calculated Osmolality 330 H 332 H Lactic Acid 2.3 H 2.4 H Calcium 7.2 L 7.2 L Corrected Calcium 7.4 L D 7.4 L Phosphorus 4.2 4.8 Magnesium 2.1 2.1 Albumin 3.7 D 3.7 Triglycerides 117 Blood Type O Positive Antibody Screen NEGATIVE Crossmatch See Detail Blood Bank Wristband ID Yes 01/24/25 01/24/25 01/24/25 18:55 20:50 21:27 WBC RBC Hgb Hct MCV MCH MCHC RDW Std Deviation Plt Count Neut % (Auto) Lymph % (Auto) Calloway % (Auto) Eos % (Auto) Baso % (Auto) Neut # (Auto) Lymph # (Auto) Calloway # (Auto) Eos # (Auto) Baso # (Auto) Immature Gran # (Auto) Absolute Nucleated RBC Immature Gran % Nucleated RBC % PT INR APTT Puncture Site Left Radial Left Radial ABG pH 7.09 L* 7.24 L D ABG pCO2 60 H 44 D ABG pO2 46 L* 129 H D ABG HCO3 18 L 19 L ABG O2 Saturation 77 L 100 H ABG Base Excess -11 L -8 L FiO2 15 100 Sodium 149 H Potassium 4.6 Chloride 116 H Carbon Dioxide 21.0 Anion Gap 12 BUN 70 H Creatinine 2.6 H Estim Creat Clear Calc 14.8 L eGFR 19 L BUN/Creatinine Ratio 27 H Glucose 250 H D Calculated Osmolality 324 H Lactic Acid 3.2 H Calcium 7.6 L Corrected Calcium 8.1 L Phosphorus 3.8 Magnesium 2.2 Albumin 3.4 Triglycerides Blood Type Antibody Screen Crossmatch Blood Bank Wristband ID 01/25/25 01/25/25 01/25/25 01:42 04:50 05:55 WBC 4.8 RBC 2.06 L Hgb 6.3 L* D 6.2 L* Hct 19.5 L* 18.8 L* MCV 95 MCH 30.6 MCHC 32.3 RDW Std Deviation 46.4 H Plt Count 126 L Neut % (Auto) 68 Lymph % (Auto) 26 Calloway % (Auto) 3 Eos % (Auto) 1 Baso % (Auto) 1 Neut # (Auto) 3.3 Lymph # (Auto) 1.2 Calloway # (Auto) 0.2 Eos # (Auto) 0.1 Baso # (Auto) 0.0 Immature Gran # (Auto) 0.07 H Absolute Nucleated RBC 0.00 Immature Gran % 1 H Nucleated RBC % 0 PT INR APTT Puncture Site ABG pH ABG pCO2 ABG pO2 ABG HCO3 ABG O2 Saturation ABG Base Excess FiO2 Sodium 149 H 151 H Potassium 4.8 4.8 Chloride 117 H 118 H Carbon Dioxide 19.6 L 20.8 Anion Gap 12 12 BUN 66 H 69 H Creatinine 2.4 H 2.4 H Estim Creat Clear Calc 16.0 L 16.0 L eGFR 21 L 21 L BUN/Creatinine Ratio 28 H 29 H Glucose 171 H D 188 H Calculated Osmolality 319 H 324 H Lactic Acid 2.6 H 2.5 H Calcium 7.3 L 7.2 L Corrected Calcium 7.9 L 7.8 L Phosphorus 3.4 3.3 Magnesium 2.0 2.0 Albumin 3.3 L 3.3 L Triglycerides Blood Type Antibody Screen Crossmatch Blood Bank Wristband ID 01/25/25 08:50 WBC RBC Hgb Hct MCV MCH MCHC RDW Std Deviation Plt Count Neut % (Auto) Lymph % (Auto) Calloway % (Auto) Eos % (Auto) Baso % (Auto) Neut # (Auto) Lymph # (Auto) Calloway # (Auto) Eos # (Auto) Baso # (Auto) Immature Gran # (Auto) Absolute Nucleated RBC Immature Gran % Nucleated RBC % PT INR APTT Puncture Site ABG pH ABG pCO2 ABG pO2 ABG HCO3 ABG O2 Saturation ABG Base Excess FiO2 Sodium Cancelled Potassium Cancelled Chloride Cancelled Carbon Dioxide Cancelled Anion Gap Cancelled BUN Cancelled Creatinine Cancelled Estim Creat Clear Calc Cancelled eGFR Cancelled BUN/Creatinine Ratio Cancelled Glucose Cancelled Calculated Osmolality Cancelled Lactic Acid 2.3 H Calcium Cancelled Corrected Calcium Cancelled Phosphorus Cancelled Magnesium Cancelled Albumin Cancelled Triglycerides Blood Type Antibody Screen Crossmatch Blood Bank Wristband ID ABG Interpretation ABG results: 01/23/25 01/24/25 01/24/25 17:13 05:00 18:55 ABG pH 7.09 L* ABG pCO2 60 H ABG pO2 46 L* ABG HCO3 18 L ABG O2 Saturation 77 L ABG Base Excess -11 L VBG pH 7.22 L 7.25 L VBG pCO2 37 39 VBG pO2 137 H 43 D VBG Base Excess -12 L -10 L 01/24/25 20:50 ABG pH 7.24 L D ABG pCO2 44 D ABG pO2 129 H D ABG HCO3 19 L ABG O2 Saturation 100 H ABG Base Excess -8 L VBG pH VBG pCO2 VBG pO2 VBG Base Excess Quality Measures Quality Measures none Advance care planning discussed with:: patient Assessment & Plan Assessment Current Active Medications: Generic Name Dose Route Start Last Admin Trade Name Freq PRN Reason Stop Dose Admin Dextrose 25 ml 01/23/25 21:13 Dextrose 50%-Water Inj 50 Ml Syringe IV [id number] PRN Blood Sugar - Low Dextrose 25 ml 01/25/25 08:42 Dextrose 50%-Water Inj 50 Ml Syringe IV 02/24/25 08:41 Q15MIN PRN BG 50-70 responsive npo pt Dextrose 50 ml 01/25/25 08:42 Dextrose 50%-Water Inj 50 Ml Syringe IV 02/24/25 08:41 Q15MIN PRN BG <50 OR BG <70 & pt unresponsive Glucagon 1 mg 01/25/25 08:42 Glucagon Inj 1 Mg Vial IM Q15MIN PRN BG <70, and no IV access Hydromorphone HCl 0.5 mg 01/24/25 16:52 01/24/25 20:33 Hydromorphone Inj 2 Mg/Ml Vial IVP 01/29/25 16:43 0.5 mg Q4HR PRN Administration PAIN SCALE 4-10(Mod-Sev Insulin Human Regular 100 unit 100 mls @ 5.443 mls/hr 01/23/25 17:37 01/25/25 09:30 / IV Miscellaneous Supplies IV 02/22/25 17:36 0 unit/kg/hr .[id number] PRN 0 mls/hr PER PROTOCOL Titration Protocol 0.1 UNIT/KG/HR Norepinephrine/Dextrose 8 mg in 250 mls @ 5.103 mls/hr 01/24/25 08:19 01/25/25 09:30 Levophed In D5w 8mg/250ml IV 02/23/25 08:18 0.03 mcg/kg/min .Q24H PRN 3.062 mls/hr PER PROTOCOL Titration Protocol 0.05 MCG/KG/MIN Piperacillin/Tazobactam/Dextrose 3.375 gm in 50 mls @ 100 mls/hr 01/24/25 08:45 01/25/25 05:10 Zosyn IV 01/31/25 08:44 100 mls/hr Q8HR ELVIA Administration Protocol Acetaminophen 1,000 mg in 100 mls @ 250 mls/hr 01/24/25 17:12 01/25/25 05:49 Ofirmev Inj IV 01/25/25 12:23 250 mls/hr Q6HR ELVIA Administration Vasopressin/Sodium Chloride 20 unit in 100 mls @ 9 mls/hr 01/24/25 21:18 01/25/25 07:15 Vasostrict/Ns Ivpb IV 02/23/25 21:07 0 unit/min .[id number] PRN 0 mls/hr PER PROTOCOL Titration Protocol 0.03 UNIT/MIN Dextrose/Lactated Ringer's 1,000 mls @ 75 mls/hr 01/25/25 08:45 01/25/25 09:23 D5-Lr IV 02/24/25 08:44 75 mls/hr .[id number] ELVIA Administration Insulin Degludec 20 unit 01/25/25 09:00 01/25/25 09:24 Insulin Degludec 5 Unit/0.05 Ml (Per 5 Units) SC 02/24/25 08:59 20 unit QDAY ELVIA Administration Insulin Human Lispro 0 unit 01/25/25 08:45 01/25/25 09:25 Insulin Lispro (Admelog) 1 Unit/0.01 Ml Unit SC 02/24/25 08:44 Not Given Q6HR ELVIA Protocol Ipratropium Pesotum 0.5 mg 01/24/25 19:03 Ipratropium Rt 0.5 Mg/ 2.5 Ml Nebu INH 02/23/25 19:02 Q6HR PRN SHORTNESS OF BREATH Protocol Levalbuterol HCl 0.63 mg 01/24/25 18:48 Levalbuterol Rt 0.63 Mg/3 Ml Nebu INH 02/23/25 18:47 Q6HR PRN WHEEZING Ondansetron HCl 4 mg 01/23/25 21:13 01/24/25 04:49 Ondansetron Inj 2 Mg/Ml Inj 2 Ml IVP 02/22/25 21:12 4 mg Q6H PRN Administration NAUSEA OR VOMITING Protocol Pantoprazole Sodium 40 mg 01/25/25 09:00 01/25/25 09:24 Pantoprazole Inj 40 Mg Vial IVP 02/24/25 08:59 40 mg BID ELVIA Administration Sodium Chloride 3 ml 01/24/25 18:50 Sodium Chloride Rt Radha 0.9% 3 Ml Nebu INH 02/23/25 18:49 PRN PRN SOLN Plan 74-year-old female with medical history significant for insulin-dependent type 2 diabetes, hypertension, hyperlipidemia, and coronary artery disease presenting with hyperosmolar hyperglycemic state (glucose ~1500, Na 170, osmolality 369) complicated by small bowel ischemia requiring emergent exploratory laparotomy for small bowel resection and anastomosis, now post-op in ICU on pressors and insulin drip. Neurology #no active problems Cardiovascular #Shock, likely distributive due to small bowel ischemia 01/24 around 7AM, a sepsis re-evaluation was performed: - Vital signs: T 98F, HR 88, BP: 67/44, RR 26. MAP: 52. Pulse ox 100% on room air. - Focused physical exam: Heart: RRR, no murmurs. peripheral pulses 2+ and symmetric in all extremities. Capillary refill > 2 seconds. Thready pulse. Lungs: clear to auscultation bilaterally. Skin: pale, warm to touch, no mottling. Diagnostic Test: - Blood glucose: 487. - Corrected sodium: 159. - Urine output: 450 cc in past 12 hours. - Lactate: 5.8 (worsening) - Patient is not responding adequately to IV fluids, with persistent hypotension, elevated lactic acid levels, and worsening abdominal pain. - Point of care ultrasound: IVC was not dilated and difficult to appreciate due to abdominal distention and pain. Treatment Review (completed): - IV crystalloid fluid bolus - 30 cc/kg given. Treatment Plan: - Blood cultures drawn prior to antibiotics - no growth to date. - Administered broad spectrum antibiotic - renally dosed Zosyn (01/25-01/31). - Continue Levophed started for persistent hypotension. Wean off as tolerated. - Hold heparin DVT PPX due to hemoglobin of 6.2. Will restart once hemoglobin is more stabe. - Monitor urine output. - Discontinue insulin drip for HHS since patient's blood glucose level remains below 200. - Transition to subcutaneous insulin - lantus 20 units with ISS. #Sinus tachycardia DDx: post-op pain vs HHS. Treatment Plan: - Continue to treat HHS. - Hydromorphone 0.5mg IV Q4HR PRN for post-op pain. #History of coronary artery disease - Currently stable, no intervention required at this time. - Will continue home meds when stable. #Primary hypertension - Will continue home meds when stable. Respiratory #Acute hypoxic respiratory failure DDx: aspiration vs inflammation infiltrate to base of lungs. Diagnostic Test: - CXR and CT chest: significant bibasilar infiltrates. Treatment Plan: - Continue on HFNC, wean as tolerated. - Continue Zosyn (01/25-01/31) for intra-abdominal infection. - Consider chest physiotherapy and incentive spirometry once stable. GI and F/E/N #Small bowel ischemia (post-op day 1) S/p Exploratory laparotomy, small bowel resection and anastomosis. Diagnostic Test: - CTAP: abnormal ischemic small bowel, air and fluid distended, air in the wall of the small bowel and pneumoperitoneum, air droplets in the mesentery. - Per operative note: large portion of ischemic jejunum and ileum. Remaining jejunum and ileum were anastomosed. Patient extubated in OR and transfer back to ICU. - Estimated blood loss during surgery: 50 cc and no transfusion was needed. - Patient had very low-dose of pressor support during procedure. - First bowel movement was shortly after surgery when patient returned to ICU. Per nurse the stool was brown, non-bloody and formed. Treatment Plan: - Hydromorphone 0.5mg IV Q4HR PRN for post-op pain. - Zofran 4mg IV Q6HR PRN nausea. - Zosyn 3.375 gram daily for 7 days. - Pantoprazole 40mg IV BID. - Surgery clear patient to have water and ice but no other liquids for now. NG tube was removed. - Evaporator Supervisor referral about vitamin supplementation. Patient is at risk for folate (absorbed in jejunum) and vitamin B12 (absorbed in ileum) deficiency. - Patient has multiple risk factors for peripheral artery disease, including coronary artery disease and diabetes. Once the patient is more stable and has recovered from surgery, outpatient follow-up with vascular surgery will be needed for further evaluation, including a CTA to assess for peripheral artery disease. Renal #Acute kidney injury on chronic kidney disease (improving) DDx: dehydration vs hypotension Diagnostic Test: - Admission labs: BUN 85, creatinine 3.4 (baseline 1.1?1.3), eGFR 12. Treatment Plan: - Continue D5 LR @ 75ml/hr. - Monitor urine output. - Strict I&Os. - Daily renal panel to trend BUN, Cr, and electrolytes. - Avoid nephrotoxins - Renally dose meds as appropriate. - Nephrology is following. #Anion gap metabolic acidosis (resolved) DDx: lactic acidosis from shock vs DKA vs STEVEN. - VBG: pH 7.22, pCO2 37. - CMP: corrected sodium 170 , bicarb 21.4, chloride 98. - Anion gap: 17. Treatment Plan: - Anticipate improvement with treating underlying cause. #Lactic acidosis (downtrending) DDx: shock vs respiratory failure vs HHS Diagnostic Test: - Lactic acid 2.9 --> 4.3 --> 5.8 --> 4.9 --> 2.3. Treatment Plan: - Monitor serial lactate levels to ensure downtrend. - Continue to treat underlying cause. - Continue IV fluids as needed based on volume status and lactate trend. - Monitor renal function and urine output. Heme #Normocytic Anemia #Acute blood loss DDx: peptic ulcer disease vs upper GI bleed vs blood loss during surgery vs dilutional. Patient no longer having dark/black emesis. Diagnostic Test: - Hemoglobin 11.1 --> 6.2. - Coagulation panel: PT 12.6, PTT 36.8. - No active signs of bleeding noted. - Chemical DVT prophylaxis held until hemoglobin stabilizes. SCDs ordered. - Per operative report, estimated blood loss was 50cc. Treatment Plan: - Transfused 1 unit of pRBCs today. - Monitor H&H - IVF resuscitation to maintain MAP > 65 - IV Pantoprazole BID. - Transfuse if Hgb < 8. - Reassess for possible GI source if hemoglobin does not improve post- transfusion. If low hemoglobin persists in the setting of abdominal pain or distention, obtain a CT scan to evaluate for intra-abdominal bleeding or blood products. If no evidence of bleeding is found on imaging, consider endoscopic evaluation. #Thrombocytopenia Likely reactive. Diagnostic Test: - Plt 126. Treatment Plan: - Monitor CBC. Endo #Hyperosmolar hyperglycemic state (resolved) Diagnostic Test: - On admission labs: - Blood glucose 1528. - Blood osmolarity 379. - Beta hydroxybutyrate 0.9. - UA with negative ketones. - VBG pH 7.22, pCO2 37. Treatment Plan: - Discontinued insulin drip. - Started insulin lantus 20 units and ISS. - Continue D5 LR maintenance at 75ml/hr. - Serum osmo 01/25: 324. - Blood glucose 01/25: 188. - Blood glucose checks Q6H. - Blood glucose goal 140-180. #Hyperosmolar hypernatremia (downtrending) #Hyperchloremia Diagnostic Test: - Corrected sodium at admission: 170 - Goal sodium for the first 24 hours: 155-160. - Goal sodium for the second 24 hours: 142-143. - Sodium corrected to 156 for 01/25. - Optic nerve sheath diameter ultrasound 01/24: not dilated, less than 5mm. Low likelihood of elevated ICP. Treatment Plan: - Goal is to lower serum sodium by no more than 10 mEq/L in 24 hours to prevent cerebral edema. - Sodium check Q4H. - D5 NS switched to D5 LR at 75 ml/hr because of hyperchloremia. #Insulin-dependent type 2 diabetes Diagnost Test: - Hemoglobin A1c: 13.7. Treatment Plan: - Discontinued insulin drip. - Start Lantus 20 units with ISS. #Hypercalcemia Diagnostic Test: - Corrected calcium 7.8. Treatment Plan: - Calcium gluconate. ID #[id number] active problems Health Maintenance: DVT prophylaxis: heparin 5000 subQ. GI prophylaxis: Pantoprazole 40mg IV BID. Diet: water and ice. Brunson: present Lines: Peripherals Drips: Leveophed Vent: not on MV CODE STATUS: FULL CODE Patient discussed with my senior resident Dr. Barrett and attending, Dr. Barclay. Garrett Wallis, DO Internal Medicine, PGY-1
[2025-01-25] MEDS: INSULIN LISPRO (AdmeLOG) 1 UNIT/0.01 ML UNIT SC (12:04)
--- NOTE | 2025-01-25 12:35 | PD.RESPRO ---
Documentation for date of: 01/25/25 Subjective Subjective Interval history: Yany Sanchez is a 74 yo female day 1 s/p exploratory laparotomy with small bowel resection and anastamosis. She is not in acute distress and overall feeling well. She is slightly anorexic and not reporting any pain. Since surgery she is afebrile, had a well formed bowel movement without melena, scant NG output resulting in NG removal, and receiving 1 unit of PRBCs for low HCT. Exam Vital Signs Temp Pulse Resp BP Pulse Ox O2 Del Method O2 Flow Rate 99.3 F 106 H 20 108/46 L 100 High Flow Nasal Cannula 40 01/25/25 12:00 01/25/25 12:00 01/25/25 12:00 01/25/25 12:00 01/25/25 12:00 01/25/25 12:00 01/25/25 12:00 FiO2 60 01/25/25 12:00 Narrative Exam Neuro: A/O x4 Skin: abdominal binder in place, wound dressing still in place without drainage. GI: mild abdominal distension, appropriate tenderness, normal bowel sounds. Dressing clean, dry, intact. Objective Labs 01/25/25 05:55 01/25/25 04:50 Labs: Laboratory Results - last 24 hr 01/24/25 01/24/25 01/24/25 09:15 15:24 17:40 WBC RBC Hgb Hct MCV MCH MCHC RDW Std Deviation Plt Count Neut % (Auto) Lymph % (Auto) [place] % (Auto) Eos % (Auto) Baso % (Auto) Neut # (Auto) Lymph # (Auto) [place] # (Auto) Eos # (Auto) Baso # (Auto) Immature Gran # (Auto) Absolute Nucleated RBC Immature Gran % Nucleated RBC % PT 12.6 H INR 1.2 APTT 36.8 H Puncture Site ABG pH ABG pCO2 ABG pO2 ABG HCO3 ABG O2 Saturation ABG Base Excess FiO2 Sodium 148 H 149 H Potassium 5.2 H D 5.0 Chloride 115 H 116 H Carbon Dioxide 17.2 L 19.3 L Anion Gap 16 14 BUN 64 H 65 H Creatinine 2.7 H 2.6 H Estim Creat Clear Calc 14.2 L 14.8 L eGFR 18 L 19 L BUN/Creatinine Ratio 24 H 25 H Glucose 427 H* D 418 H* Calculated Osmolality 330 H 332 H Lactic Acid 2.3 H 2.4 H Calcium 7.2 L 7.2 L Corrected Calcium 7.4 L D 7.4 L Phosphorus 4.2 4.8 Magnesium 2.1 2.1 Albumin 3.7 D 3.7 Triglycerides 117 Blood Type O Positive Antibody Screen NEGATIVE Crossmatch See Detail Blood Bank Wristband ID Yes 01/24/25 01/24/25 01/24/25 18:55 20:50 21:27 WBC RBC Hgb Hct MCV MCH MCHC RDW Std Deviation Plt Count Neut % (Auto) Lymph % (Auto) [place] % (Auto) Eos % (Auto) Baso % (Auto) Neut # (Auto) Lymph # (Auto) [place] # (Auto) Eos # (Auto) Baso # (Auto) Immature Gran # (Auto) Absolute Nucleated RBC Immature Gran % Nucleated RBC % PT INR APTT Puncture Site Left Radial Left Radial ABG pH 7.09 L* 7.24 L D ABG pCO2 60 H 44 D ABG pO2 46 L* 129 H D ABG HCO3 18 L 19 L ABG O2 Saturation 77 L 100 H ABG Base Excess -11 L -8 L FiO2 15 100 Sodium 149 H Potassium 4.6 Chloride 116 H Carbon Dioxide 21.0 Anion Gap 12 BUN 70 H Creatinine 2.6 H Estim Creat Clear Calc 14.8 L eGFR 19 L BUN/Creatinine Ratio 27 H Glucose 250 H D Calculated Osmolality 324 H Lactic Acid 3.2 H Calcium 7.6 L Corrected Calcium 8.1 L Phosphorus 3.8 Magnesium 2.2 Albumin 3.4 Triglycerides Blood Type Antibody Screen Crossmatch Blood Bank Wristband ID 01/25/25 01/25/25 01/25/25 01:42 04:50 05:55 WBC 4.8 RBC 2.06 L Hgb 6.3 L* D 6.2 L* Hct 19.5 L* 18.8 L* MCV 95 MCH 30.6 MCHC 32.3 RDW Std Deviation 46.4 H Plt Count 126 L Neut % (Auto) 68 Lymph % (Auto) 26 [place] % (Auto) 3 Eos % (Auto) 1 Baso % (Auto) 1 Neut # (Auto) 3.3 Lymph # (Auto) 1.2 [place] # (Auto) 0.2 Eos # (Auto) 0.1 Baso # (Auto) 0.0 Immature Gran # (Auto) 0.07 H Absolute Nucleated RBC 0.00 Immature Gran % 1 H Nucleated RBC % 0 PT INR APTT Puncture Site ABG pH ABG pCO2 ABG pO2 ABG HCO3 ABG O2 Saturation ABG Base Excess FiO2 Sodium 149 H 151 H Potassium 4.8 4.8 Chloride 117 H 118 H Carbon Dioxide 19.6 L 20.8 Anion Gap 12 12 BUN 66 H 69 H Creatinine 2.4 H 2.4 H Estim Creat Clear Calc 16.0 L 16.0 L eGFR 21 L 21 L BUN/Creatinine Ratio 28 H 29 H Glucose 171 H D 188 H Calculated Osmolality 319 H 324 H Lactic Acid 2.6 H 2.5 H Calcium 7.3 L 7.2 L Corrected Calcium 7.9 L 7.8 L Phosphorus 3.4 3.3 Magnesium 2.0 2.0 Albumin 3.3 L 3.3 L Triglycerides Blood Type Antibody Screen Crossmntch Blood Bank Wristband ID 01/25/25 08:50 WBC RBC Hgb Hct MCV MCH MCHC RDW Std Deviation Plt Count Neut % (Auto) Lymph % (Auto) [place] % (Auto) Eos % (Auto) Baso % (Auto) Neut # (Auto) Lymph # (Auto) [place] # (Auto) Eos # (Auto) Baso # (Auto) Immature Gran # (Auto) Absolute Nucleated RBC Immature Gran % Nucleated RBC % PT INR APTT Puncture Site ABG pH ABG pCO2 ABG pO2 ABG HCO3 ABG O2 Saturation ABG Base Excess FiO2 Sodium Cancelled Potassium Cancelled Chloride Cancelled Carbon Dioxide Cancelled Anion Gap Cancelled BUN Cancelled Creatinine Cancelled Estim Creat Clear Calc Cancelled eGFR Cancelled BUN/Creatinine Ratio Cancelled Glucose Cancelled Calculated Osmolality Cancelled Lactic Acid 2.3 H Calcium Cancelled Corrected Calcium Cancelled Phosphorus Cancelled Magnesium Cancelled Albumin Cancelled Triglycerides Blood Type Antibody Screen Crossmatch Blood Bank Wristband ID ABG Interpretation ABG results: 01/23/25 01/24/25 01/24/25 17:13 05:00 18:55 ABG pH 7.09 L* ABG pCO2 60 H ABG pO2 46 L* ABG HCO3 18 L ABG O2 Saturation 77 L ABG Base Excess -11 L VBG pH 7.22 L 7.25 L VBG pCO2 37 39 VBG pO2 137 H 43 D VBG Base Excess -12 L -10 L 01/24/25 20:50 ABG pH 7.24 L D ABG pCO2 44 D ABG pO2 129 H D ABG HCO3 19 L ABG O2 Saturation 100 H ABG Base Excess -8 L VBG pH VBG pCO2 VBG pO2 VBG Base Excess Quality Measures Quality Measures none Advance care planning discussed with:: other Assessment & Plan Assessment Current Active Medications: Generic Name Dose Route Start Last Admin Trade Name Freq PRN Reason Stop Dose Admin Dextrose 25 ml 01/23/25 21:13 Dextrose 50%-Water Inj 50 Ml Syringe IV [id number] PRN Blood Sugar - Low Dextrose 25 ml 01/25/25 08:42 Dextrose 50%-Water Inj 50 Ml Syringe IV 02/24/25 08:41 Q15MIN PRN BG 50-70 responsive npo pt Dextrose 50 ml 01/25/25 08:42 Dextrose 50%-Water Inj 50 Ml Syringe IV 02/24/25 08:41 Q15MIN PRN BG <50 OR BG <70 & pt unresponsive Glucagon 1 mg 01/25/25 08:42 Glucagon Inj 1 Mg Vial IM Q15MIN PRN BG <70, and no IV access Hydromorphone HCl 0.5 mg 01/24/25 16:52 01/24/25 20:33 Hydromorphone Inj 2 Mg/Ml Vial IVP 01/29/25 16:43 0.5 mg Q4HR PRN Administration PAIN SCALE 4-10(Mod-Sev Insulin Human Regular 100 unit 100 mls @ 5.443 mls/hr 01/23/25 17:37 01/25/25 09:30 / IV Miscellaneous Supplies IV 02/22/25 17:36 0 unit/kg/hr .[id number] PRN 0 mls/hr PER PROTOCOL Titration Protocol 0.1 UNIT/KG/HR Norepinephrine/Dextrose 8 mg in 250 mls @ 5.103 mls/hr 01/24/25 08:19 01/25/25 10:30 Levophed In D5w 8mg/250ml IV 02/23/25 08:18 0.05 mcg/kg/min .Q24H PRN 5.103 mls/hr PER PROTOCOL Titration Protocol 0.05 MCG/KG/MIN Piperacillin/Tazobactam/Dextrose 3.375 gm in 50 mls @ 100 mls/hr 01/24/25 08:45 01/25/25 05:10 Zosyn IV 01/31/25 08:44 100 mls/hr Q8HR ELVIA Administration Protocol Vasopressin/Sodium Chloride 20 unit in 100 mls @ 9 mls/hr 01/24/25 21:18 01/25/25 07:15 Vasostrict/Ns Ivpb IV 02/23/25 21:07 0 unit/min .[id number] PRN 0 mls/hr PER PROTOCOL Titration Protocol 0.03 UNIT/MIN Dextrose/Lactated Ringer's 1,000 mls @ 75 mls/hr 01/25/25 08:45 01/25/25 09:23 D5-Lr IV 02/24/25 08:44 75 mls/hr .[id number] ELVIA Administration Insulin Degludec 20 unit 01/25/25 09:00 01/25/25 09:24 Insulin Degludec 5 Unit/0.05 Ml (Per 5 Units) SC 02/24/25 08:59 20 unit QDAY ELVIA Administration Insulin Human Lispro 0 unit 01/25/25 08:45 01/25/25 12:04 Insulin Lispro (Admelog) 1 Unit/0.01 Ml Unit SC 02/24/25 08:44 1 unit Q6HR ELVIA Administration Protocol Ipratropium [place] 0.5 mg 01/24/25 19:03 Ipratropium Rt 0.5 Mg/ 2.5 Ml Nebu INH 02/23/25 19:02 Q6HR PRN SHORTNESS OF BREATH Protocol Levalbuterol HCl 0.63 mg 01/24/25 18:48 Levalbuterol Rt 0.63 Mg/3 Ml Nebu INH 02/23/25 18:47 Q6HR PRN WHEEZING Ondansetron HCl 4 mg 01/23/25 21:13 01/24/25 04:49 Ondansetron Inj 2 Mg/Ml Inj 2 Ml IVP 02/22/25 21:12 4 mg Q6H PRN Administration NAUSEA OR VOMITING Protocol Pantoprazole Sodium 40 mg 01/25/25 09:00 01/25/25 09:24 Pantoprazole Inj 40 Mg Vial IVP 02/24/25 08:59 40 mg BID ELVIA Administration Sodium Chloride 3 ml 01/24/25 18:50 Sodium Chloride Rt Radha 0.9% 3 Ml Nebu INH 02/23/25 18:49 PRN PRN SOLN Additional Assessment: 74F with HTN, HLD, DMII (A1c 13), CAD, admitted 01/23 with 3-day history of weakness, poor oral intake and nausea/vomiting, with findings consistent with HHS. Pt developed bowel ischemia, s/p emergent ex lap with small bowel resection and anastamosis. Gradually recovering. Plan Okay to have water and ice chips. Wean pressor support, continue antibiotics, follow hemoglobin after PRBC transfusion. Will continue to follow.
[2025-01-25 14:30] LABS: Hematocrit 24.9 % (36.0-46.0)
[2025-01-25 14:41] LABS: Hemoglobin 8.2 g/dL (12.0-16.0)
[2025-01-25 14:43] LABS: Anion Gap 12 (7-16); BUN/Creatinine Ratio 29 Ratio (12-20); Blood Urea Nitrogen 63 mg/dL (9-23); Calcium 7.2 mg/dL (8.3-10.6); Carbon Dioxide 22.2 mMol/L (20.0-31.0); Chloride 119 mMol/L (98-107); Creatinine (Component) 2.2 mg/dL (0.6-1.3); Estimated Creatinine Clearance 17.4 mL/min (>60); Glucose 158 mg/dL (74-106); Osmolality,Calculated 324 (275-295); Potassium 4.2 mMol/L (3.4-5.1); Sodium 153 mMol/L (136-145); eGFR 23 See Note
--- NOTE | 2025-01-25 15:26 | PC.SS ---
SS update: Patient on high flow nasal cannula.
--- NOTE | 2025-01-25 18:18 | PD.IMPROG ---
Documentation for date of: 01/25/25 Subjective Subjective Interval history: Drop in hemoglobin hematocrit to 6.2 and 18.8 Requiring blood transfusion Coffee ground to the NGT before Status post exploration for ischemic bowel disease Exam Vital Signs Temp Pulse Resp BP Pulse Ox O2 Del Method O2 Flow Rate 99.2 F 94 16 111/56 L 99 High Flow Nasal Cannula 40 01/25/25 13:15 01/25/25 17:15 01/25/25 17:15 01/25/25 17:15 01/25/25 17:15 01/25/25 12:00 01/25/25 14:20 FiO2 60 01/25/25 14:20 Objective Labs 01/25/25 14:10 01/25/25 14:10 Labs: Laboratory Results - last 24 hr 01/24/25 01/24/25 01/24/25 09:15 17:40 18:55 WBC RBC Hgb Hct MCV MCH MCHC RDW Std Deviation Plt Count Neut % (Auto) Lymph % (Auto) [place]cd[place] % (Auto) Eos % (Auto) Baso % (Auto) Neut # (Auto) Lymph # (Auto) [place]cd[place] # (Auto) Eos # (Auto) Baso # (Auto) Immature Gran # (Auto) Absolute Nucleated RBC Immature Gran % Nucleated RBC % Puncture Site Left Radial ABG pH 7.09 L* ABG pCO2 60 H ABG pO2 46 L* ABG HCO3 18 L ABG O2 Saturation 77 L ABG Base Excess -11 L FiO2 15 Sodium 149 H Potassium 5.0 Chloride 116 H Carbon Dioxide 19.3 L Anion Gap 14 BUN 65 H Creatinine 2.6 H Estim Creat Clear Calc 14.8 L eGFR 19 L BUN/Creatinine Ratio 25 H Glucose 418 H* Calculated Osmolality 332 H Lactic Acid Calcium 7.2 L Corrected Calcium 7.4 L Phosphorus 4.8 Magnesium 2.1 Albumin 3.7 Blood Type O Positive Antibody Screen NEGATIVE Crossmatch See Detail Blood Bank Wristband ID Yes 01/24/25 01/24/25 01/25/25 20:50 21:27 01:42 WBC RBC Hgb Hct MCV MCH MCHC RDW Std Deviation Plt Count Neut % (Auto) Lymph % (Auto) [place]cd[place] % (Auto) Eos % (Auto) Baso % (Auto) Neut # (Auto) Lymph # (Auto) [place] # (Auto) Eos # (Auto) Baso # (Auto) Immature Gran # (Auto) Absolute Nucleated RBC Immature Gran % Nucleated RBC % Puncture Site Left Radial ABG pH 7.24 L D ABG pCO2 44 D ABG pO2 129 H D ABG HCO3 19 L ABG O2 Saturation 100 H ABG Base Excess -8 L FiO2 100 Sodium 149 H 149 H Potassium 4.6 4.8 Chloride 116 H 117 H Carbon Dioxide 21.0 19.6 L Anion Gap 12 12 BUN 70 H 66 H Creatinine 2.6 H 2.4 H Estim Creat Clear Calc 14.8 L 16.0 L eGFR 19 L 21 L BUN/Creatinine Ratio 27 H 28 H Glucose 250 H D 171 H D Calculated Osmolality 324 H 319 H Lactic Acid 3.2 H 2.6 H Calcium 7.6 L 7.3 L Corrected Calcium 8.1 L 7.9 L Phosphorus 3.8 3.4 Magnesium 2.2 2.0 Albumin 3.4 3.3 L Blood Type Antibody Screen Crossmatch Blood Bank Wristband ID 01/25/25 01/25/25 01/25/25 04:50 05:55 08:50 WBC 4.8 RBC 2.06 L Hgb 6.3 L* D 6.2 L* Hct 19.5 L* 18.8 L* MCV 95 MCH 30.6 MCHC 32.3 RDW Std Deviation 46.4 H Plt Count 126 L Neut % (Auto) 68 Lymph % (Auto) 26 [place]cd[place] % (Auto) 3 Eos % (Auto) 1 Baso % (Auto) 1 Neut # (Auto) 3.3 Lymph # (Auto) 1.2 Mcdonald # (Auto) 0.2 Eos # (Auto) 0.1 Baso # (Auto) 0.0 Immature Gran # (Auto) 0.07 H Absolute Nucleated RBC 0.00 Immature Gran % 1 H Nucleated RBC % 0 Puncture Site ABG pH ABG pCO2 ABG pO2 ABG HCO3 ABG O2 Saturation ABG Base Excess FiO2 Sodium 151 H Cancelled Potassium 4.8 Cancelled Chloride 118 H Cancelled Carbon Dioxide 20.8 Cancelled Anion Gap 12 Cancelled BUN 69 H Cancelled Creatinine 2.4 H Cancelled Estim Creat Clear Calc 16.0 L Cancelled eGFR 21 L Cancelled BUN/Creatinine Ratio 29 H Cancelled Glucose 188 H Cancelled Calculated Osmolality 324 H Cancelled Lactic Acid 2.5 H 2.3 H Calcium 7.2 L Cancelled Corrected Calcium 7.8 L Cancelled Phosphorus 3.3 Cancelled Magnesium 2.0 Cancelled Albumin 3.3 L Cancelled Blood Type Antibody Screen Crossmatch Blood Bank Wristband ID 01/25/25 14:10 WBC RBC Hgb 8.2 L D Hct 24.9 L MCV MCH MCHC RDW Std Deviation Plt Count Neut % (Auto) Lymph % (Auto) [place]cd[place] % (Auto) Eos % (Auto) Baso % (Auto) Neut # (Auto) Lymph # (Auto) [place]cd[place] # (Auto) Eos # (Auto) Baso # (Auto) Immature Gran # (Auto) Absolute Nucleated RBC Immature Gran % Nucleated RBC % Puncture Site ABG pH ABG pCO2 ABG pO2 ABG HCO3 ABG O2 Saturation ABG Base Excess FiO2 Sodium 153 H Potassium 4.2 D Chloride 119 H Carbon Dioxide 22.2 Anion Gap 12 BUN 63 H Creatinine 2.2 H Estim Creat Clear Calc 17.4 L eGFR 23 L BUN/Creatinine Ratio 29 H Glucose 158 H Calculated Osmolality 324 H Lactic Acid Calcium 7.2 L Corrected Calcium Phosphorus Magnesium Albumin Blood Type Antibody Screen Crossmatch Blood Bank Wristband ID Impressions Impression: Drop in hemoglobin hematocrit is pretty precipitous However it is all in the setting of ischemic bowel disease Hold off any invasive GI workup Manage conservatively ABG Interpretation ABG results: 01/23/25 01/24/25 01/24/25 17:13 05:00 18:55 ABG pH 7.09 L* ABG pCO2 60 H ABG pO2 46 L* ABG HCO3 18 L ABG O2 Saturation 77 L ABG Base Excess -11 L VBG pH 7.22 L 7.25 L VBG pCO2 37 39 VBG pO2 137 H 43 D VBG Base Excess -12 L -10 L 01/24/25 20:50 ABG pH 7.24 L D ABG pCO2 44 D ABG pO2 129 H D ABG HCO3 19 L ABG O2 Saturation 100 H ABG Base Excess -8 L VBG pH VBG pCO2 VBG pO2 VBG Base Excess Assessment & Plan Time Spent With Patient Time: Total time spent is greater than 50% in coordination of care (as documented) at patient's floor/unit and/or counseling patient:
[2025-01-25 19:08] LABS: Sodium 153 mMol/L (136-145)
[2025-01-26] VITALS (57 sets, daily range): BP systolic 98–165; BP diastolic 45–87; PULSE 85–117; RESP 12–24; TEMP 36.2–37.1; O2SAT 84–100
[2025-01-26] MEDS: INSULIN LISPRO (AdmeLOG) 1 UNIT/0.01 ML UNIT SC (00:15)
[2025-01-26 05:45] LABS: Lactate (Lactic Acid) 1.3 mMol/L (0.4-2.0)
[2025-01-26 05:54] LABS: Basophils # (Auto) 0.1 Thou/mm3 (0.0-0.2); Basophils % (Auto) 1 % (0-2.5); Eosinophils # (Auto) 0.2 Thou/mm3 (0.0-0.5); Eosinophils % (Auto) 3 % (0-10); Hematocrit 24.0 % (36.0-46.0); Immature Granulocytes Auto 0.92 Thou/mm3 (0.00-0.00); Lymphocytes # (Auto) 1.3 Thou/mm3 (1.0-4.8); Lymphocytes % (Auto) 18 % (10-50); Mean Corpuscular HGB Conc 33.8 g/dl (31.0-37.0); Mean Corpuscular Hemoglobin 30.1 pg (25.0-35.0); Mean Corpuscular Volume 89 fL (80-100); Monocytes # (Auto) 0.2 Thou/mm3 (0.0-0.8); Monocytes % (Auto) 3 % (0-12); Neutrophils # (Auto) 4.3 Thou/mm3 (1.8-7.7); Neutrophils % (Auto) 62 % (37-80); Nucleated Red Blood Cell # 0.00 Thou/mm3 (0.00-0.00); Nucleated Red Blood Cell % 0 /100 WBC (0); Platelet Count 91 Thou/mm3 (140-440); RDW Standard Deviation 50.3 fL (36.4-46.3); Red Blood Count 2.69 Miln/mm3 (4.00-5.20); White Blood Count 7.0 Thou/mm3 (3.6-11.0)
[2025-01-26 05:58] LABS: Hemoglobin 8.1 g/dL (12.0-16.0)
[2025-01-26 06:32] LABS: Alanine Aminotransferase 30 U/L (10-49); Albumin, Serum 3.0 gm/dL (3.4-4.8); Albumin/Globulin Ratio 2.1 (1.2-2.2); Alkaline Phosphatase 55 U/L (46-116); Anion Gap 12 (7-16); Aspartate Amino Transferase 52 U/L (0-34); BUN/Creatinine Ratio 27 Ratio (12-20); Bilirubin,Total 0.3 mg/dL (0.3-1.2); Blood Urea Nitrogen 49 mg/dL (9-23); Calcium 7.4 mg/dL (8.3-10.6); Calcium (Corrected) 8.2 mg/dL (8.5-10.1); Carbon Dioxide 23.5 mMol/L (20.0-31.0); Chloride 122 mMol/L (98-107); Creatinine (Component) 1.8 mg/dL (0.6-1.3); Estimated Creatinine Clearance 21.3 mL/min (>60); Globulin 1.4 gm/dL (2.3-3.5); Glucose 140 mg/dL (74-106); Magnesium 2.2 mg/dL (1.6-2.6); Osmolality,Calculated 326 (275-295); Phosphorous 2.4 mg/dL (2.4-5.1); Potassium 3.9 mMol/L (3.4-5.1); Sodium 157 mMol/L (136-145); Total Protein 4.4 gm/dL (5.7-8.2); eGFR 30 See Note
[2025-01-26] MEDS: PIPER/TAZO 3.375 GM PREMIX 3.375 GM/50 ML BAG IV ×3 (06:35→21:34)
[2025-01-26] MEDS: INSULIN DEGLUDEC 5 UNIT/0.05 ML (PER 5 UNITS) 20 UNIT SC (09:14)
--- NOTE | 2025-01-26 10:42 | PD.SURPROG ---
Documentation for date of: 01/26/25 Subjective Subjective Brief History: 74F with HTN, HLD, DMII (A1c 13), CAD, admitted 01/23 with 3-day history of weakness, poor oral intake and nausea/vomiting, with findings consistent with HHS. Pt was admitted to ICU and then overnight developed worsening abdominal distention, AXR showing stool burden and CT performed today concerning for ischemic small bowel with air droplets in the mesentery and pneumoperitoneum. Pt was started on pressor support, has an increasing lactate Narrative: Off pressor support since 2am, Tmax 99.3 yesterday at noon, reporting pain is controlled, no nausea, tolerating sips of water and had another BM this morning. Hgb 8 after 1u PRBC Exam Vital Signs Temp Pulse Resp BP Pulse Ox O2 Del Method O2 Flow Rate 98.8 F 94 16 165/83 H 100 High Flow Nasal Cannula 30 01/26/25 08:00 01/26/25 10:35 01/26/25 10:35 01/26/25 09:00 01/26/25 10:35 01/26/25 08:00 01/26/25 10:35 FiO2 30 01/26/25 10:35 Constitutional Constitutional: no acute distress Routine Respiratory Exam Respiratory: Present no resp distress Routine Abdominal Exam Abdominal: Present soft and wound (midline incision with cornelio c/d/i, no erythema, no fluctuance or drainage); Absent tenderness or distended Results Results: Laboratory Laboratory results: results reviewed Assessment & Plan Plan 74F with HTN, HLD, DMII (A1c 13), CAD, admitted 01/23 with 3-day history of weakness, poor oral intake and nausea/vomiting, with findings consistent with HHS, course complicated by small bowel ischemia, now s/p emergent ex lap with small bowel resection and anastamosis 01/24, recovering well overall Advance to CLD Continue abx OK to get OOB with assistance, and ok from my standpoint to jarad german but understand may be necessary for strict I&O in setting of hypernatremia PROCEDURES: Procedures Exploratory laparotomy, small bowel resection and anastomosis, washout
[2025-01-26 11:03] LABS: Sodium 158 mMol/L (136-145)
--- NOTE | 2025-01-26 11:22 | ESPR_ITS ---
<Statement entered by Jesús Barclay MD - 01/27/25 12:01> TOTAL TIME: 45MINUTES ON DIRECT MEDICAL CARE, MANAGEMENT - COORDINATION AND COUNSELING > 50% OF TOTAL TIME I saw and evaluated the patient. I reviewed the resident?s note and agree with findings and plan as documented in the resident?s note. She continues to improve, vital signs have remained stable, no fevers, abdominal exam is improving. Diabetes is better controlled overall. She is stable to transfer out of ICU <Statement entered by Arnold Barrett MD - 01/26/25 19:11> Patient was seen and examined at bedside this morning. Overnight, patient was off Levophed and remained stable with MAP in 90s. Urine output has been 60 to 90 cc. Sodium went up therefore initially D5 half NS was added which was discontinued later and D5W was started as patient's sodium was uptrending. Central line was removed. Patient was advanced to clear liquid as tolerated. She was transition from high flow to simple nasal cannula which she tolerated well. Nephrology is following. HHS has resolved. Patient is stable from ICU standpoint and can be downgraded to floors for continuation of care. I discussed and supervised with the project internship physician who took care of this patient. I personally saw and examined the patient. I agree with most of the assessment and plan. Disclaimer: Despite multiple revisions, due to the dictation software being used, the document bellow may not be free of grammatical errors including phonetic/typographic errors. However, this does not deter from our commitment to providing health care in the patient's best interest in mind. Plan of care discussed with attending Physician Dr. Deny Barrett MD PGY-3 Documentation for date of: 01/26/25 Subjective Subjective Interval history: 01/26/2025: Overnight, Levophed was turned off around 2:30AM and blood pressure has remain stable with MAP in the 90s. Urine output about 60-90 cc/hr. Patient is stable to downgrade to tele floor. Patient had one bowel movement this morning. Hemoglobin remained stable at 8.1 after 1 unit of pRBCs transfusion yesterday. Before moving to tele floor, german and central line will be removed. Per surgeon, patient is able to advance to clear liquids. Dr. Velasquez (surgeon) changed the wound dressing this morning. Recommend physical therapy and leave abdominal binder on. Patient is no longer on HFNC and is saturating well on nasal cannula at 2L. D5 LS was discontinued and switched to 0.5 NS as patient has started diet. Continue with sodium checks Q6H. 01/25/25: During the night, the patient began desaturating to the 70s. Surgeon was consulted and recommended avoiding BIPAP, as positive pressure could cause gastric distension. Patient was placed on HFNC at 40 L/min with 100% O2 saturation. Ppatient exhibited shallow breathing, likely due to pain from surgery. A dose of Dilaudid 0.5 mg was given and an abdominal binder was applied. An ABG at 18:55 showed a pH of 7.09 and pCO2 of 44. A repeat ABG at 20:50 showed improvement with a pH of 7.24 and pCO2 of 44. Due to persistent hypotension, Levophed was increased to 0.2 mcg/kg/min, and vasopressin was added at 0.03 units/min, likely in response to the Dilaudid. Patient was on LR at 150 mL/hr, and blood glucose remained under 200, so fluids were switched to D5 LR around 1 AM. However, due to the sodium level of 135 and the need to avoid overcorrection, the fluids were changed to D5 NS at 150 mL/hr at 3 AM. Patient was gradually weaned off vasopressin, and Levophed was reduced to 0.03 mcg/kg/min, with MAP remaining in the 70s. In the past 24 hours, the patient received approximately 2L of fluid and had adequate urine output of 750 cc over the past 12 hours. This morning, patient's oxygen needs decreased and able to tolerate HFNC at 40 L/min with 80% saturation. RT is gradually decreasing the flow rate by increments of 20, and the patient is currently on 40 L/min with 60% saturation. Patient had a brown, formed bowel movement and is passing gas. NG tube had minimal output on intermittent suction and was removed. Surgeon instructed that the patient may have water or ice, but no other liquids at this time. Patient's IV fluids were switched to D5 LS due to hyperchloremia. Target sodium level for today is 142-143. Given that the patient's blood glucose levels have remained below 200, the insulin drip was discontinued, and 20 units of Lantus with ISS were started. Patient?s hemoglobin dropped from 9.1 to 6.2 overnight. This drop may be attributed to the surgery, although it is unclear, as hemoglobin was not checked postoperatively and was only reassessed this morning. One unit of pRBCs was transfused, and H&H will be monitored. If the hemoglobin does not improve with the transfusion, a GI bleed workup will be considered.Patient?s daughter was updated on the patient's hospital course thus far, and all questions were addressed. History of Present Illness: 74-year-old female with a medical history significant for insulin-dependent type 2 diabetes, hypertension, hyperlipidemia, and coronary artery disease presented to the ED on 01/24 with complaints of weakness and decreased oral intake over the past 2-3 days. She also reports associated nausea and vomiting. According to her family, she has been unable to retain food or fluids and has not been able to take her medications. Her last bowel movement occurred one day prior to presentation. Initially, the patient did not experience abdominal pain, but she began to develop abdominal discomfort during her time in the ED. She denies any history of hematemesis, hematochezia, chills, or weight loss. ED Course: -Initial vitals were BP 98/62, HR 92, RR 18, T 97.7F, O2 sat 95% on room air. -Labs significant for Hgb 11.1, MCV 101; PT 12.6, PTT 36.8; VBG pH 7.22, pCO2 37, pO2 137; corrected Na 171, K 6.6, AG 17, BUN 94, Cr 3.8, eGFR 12, glucose 1528, calculated osmolality 379, PO4 7.0, Mg 3.7, ALP 233, -Imaging included: Head CT unremarkable, CXR minor atelectasis left lower lobe. -In the ED, patient was given: NS 2L, Albuterol/Ipratropium 3ml INH x1, insulin regular 10 units IV x1, Calcium chloride 10 ml IV x1, Dextrose 50 mL IVP x1, Insulin drip, sodium polystytene sulfonate 30 mg PO x1. Patient was admitted for the work-up and management of HHS in the setting of poor oral intake and noncompliance with home insulin. Upon arrival to the ICU around 10 PM on 01/24, the patient was administered 1L NS, 1L of LR and maintenance fluids. Pantoprazole and ondansetron was also administered. An NG tube was placed for free water flushes due to hypernatremia. Patient subsequently developed worsening abdominal pain and dark brown vomitus. The NG tube was placed on low intermittent suction. On physical exam this morning, patient had significant abdominal distension and rebound tenderness. Overnight KUB revealed significant stool burden. A guaiac test on the vomitus was positive for blood. A stat chest, abdomen, and pelvis CT was ordered, which demonstrated abnormal ischemic small bowel, air and fluid distended, air in the wall of the small bowel and pneumoperitoneum, air droplets in the mesentery. A stat consult with general surgery was called. Right IJ central line placed. Patient underwent an emergent exploratory laparotomy. Approximately 280 cm of small bowel was resected, and a jejuno-ileal anastomosis was performed. Patient was extubated and transferred back to the ICU. Patient is receiving pressor support and supplemental oxygen therapy. Management with insulin drip and IV fluids to address hypernatremia and hyperosmolar hyperglycemic state continued. Exam Vital Signs Temp Pulse Resp BP Pulse Ox O2 Del Method O2 Flow Rate 98.8 F 94 16 165/83 H 100 High Flow Nasal Cannula 30 01/26/25 08:00 01/26/25 10:35 01/26/25 10:35 01/26/25 09:00 01/26/25 10:35 01/26/25 08:00 01/26/25 10:35 FiO2 30 01/26/25 10:35 Narrative Exam Physical Exam General: Elderly, frail, awake and alert. Head: Normocephalic, atraumatic. Eyes: Pupils equally round and reactive to light. Anicteric. Blind in left eye. Heart: Regular rate and rhythm, no murmurs. No JVD. Peripheral pulses 2+ and symmetric in all extremities. Lungs: Clear to auscultation bilaterally. Non-labored respirations, symmetric chest rise, no use of accessory muscles. Abdomen: Abdominal binder present. Wound dressing is clear, dry, and intact. Neurologic: No gross neurological deficit, and patient able to move all 4 extremities. Extremities: No clubbing, cyanosis, or edema. Capillary refill <2 seconds. Skin warm to touch, no mottling. Skin: No rashes, lesions, or ulcers. Psychiatric: Cooperative, appropriate mood and affect Objective Labs 01/26/25 05:05 01/26/25 10:45 Labs: Laboratory Results - last 24 hr 01/24/25 01/25/25 01/25/25 09:15 14:10 18:51 WBC RBC Hgb 8.2 L D Hct 24.9 L MCV MCH MCHC RDW Std Deviation Plt Count Neut % (Auto) Lymph % (Auto) Grundy % (Auto) Eos % (Auto) Baso % (Auto) Neut # (Auto) Lymph # (Auto) Grundy # (Auto) Eos # (Auto) Baso # (Auto) Immature Gran # (Auto) Absolute Nucleated RBC Immature Gran % Nucleated RBC % Sodium 153 H 153 H Potassium 4.2 D Chloride 119 H Carbon Dioxide 22.2 Anion Gap 12 BUN 63 H Creatinine 2.2 H Estim Creat Clear Calc 17.4 L eGFR 23 L BUN/Creatinine Ratio 29 H Glucose 158 H Calculated Osmolality 324 H Lactic Acid Calcium 7.2 L Corrected Calcium Phosphorus Magnesium Total Bilirubin AST ALT Alkaline Phosphatase Total Protein Albumin Globulin Albumin/Globulin Ratio Crossmatch See Detail 01/26/25 01/26/25 05:05 10:45 WBC 7.0 D RBC 2.69 L Hgb 8.1 L Hct 24.0 L MCV 89 MCH 30.1 MCHC 33.8 RDW Std Deviation 50.3 H Plt Count 91 L D Neut % (Auto) 62 Lymph % (Auto) 18 Grundy % (Auto) 3 Eos % (Auto) 3 Baso % (Auto) 1 Neut # (Auto) 4.3 Lymph # (Auto) 1.3 Grundy # (Auto) 0.2 Eos # (Auto) 0.2 Baso # (Auto) 0.1 Immature Gran # (Auto) 0.92 H Absolute Nucleated RBC 0.00 Immature Gran % 13 H Nucleated RBC % 0 Sodium 157 H 158 H Potassium 3.9 Chloride 122 H* Carbon Dioxide 23.5 Anion Gap 12 BUN 49 H Creatinine 1.8 H Estim Creat Clear Calc 21.3 L eGFR 30 L BUN/Creatinine Ratio 27 H Glucose 140 H Calculated Osmolality 326 H Lactic Acid 1.3 Calcium 7.4 L Corrected Calcium 8.2 L Phosphorus 2.4 Magnesium 2.2 Total Bilirubin 0.3 AST 52 H ALT 30 Alkaline Phosphatase 55 D Total Protein 4.4 L Albumin 3.0 L Globulin 1.4 L Albumin/Globulin Ratio 2.1 Crossmatch ABG Interpretation ABG results: 01/23/25 01/24/25 01/24/25 17:13 05:00 18:55 ABG pH 7.09 L* ABG pCO2 60 H ABG pO2 46 L* ABG HCO3 18 L ABG O2 Saturation 77 L ABG Base Excess -11 L VBG pH 7.22 L 7.25 L VBG pCO2 37 39 VBG pO2 137 H 43 D VBG Base Excess -12 L -10 L 01/24/25 20:50 ABG pH 7.24 L D ABG pCO2 44 D ABG pO2 129 H D ABG HCO3 19 L ABG O2 Saturation 100 H ABG Base Excess -8 L VBG pH VBG pCO2 VBG pO2 VBG Base Excess Quality Measures Quality Measures none Advance care planning discussed with:: patient Assessment & Plan Assessment Current Active Medications: Generic Name Dose Route Start Last Admin Trade Name Freq PRN Reason Stop Dose Admin Dextrose 25 ml 01/23/25 21:13 Dextrose 50%-Water Inj 50 Ml Syringe IV [id number] PRN Blood Sugar - Low Dextrose 25 ml 01/25/25 08:42 Dextrose 50%-Water Inj 50 Ml Syringe IV 02/24/25 08:41 Q15MIN PRN BG 50-70 responsive npo pt Dextrose 50 ml 01/25/25 08:42 Dextrose 50%-Water Inj 50 Ml Syringe IV 02/24/25 08:41 Q15MIN PRN BG <50 OR BG <70 & pt unresponsive Glucagon 1 mg 01/25/25 08:42 Glucagon Inj 1 Mg Vial IM Q15MIN PRN BG <70, and no IV access Hydromorphone HCl 0.5 mg 01/24/25 16:52 01/24/25 20:33 Hydromorphone Inj 2 Mg/Ml Vial IVP 01/29/25 16:43 0.5 mg Q4HR PRN Administration PAIN SCALE 4-10(Mod-Sev Norepinephrine/Dextrose 8 mg in 250 mls @ 5.103 mls/hr 01/24/25 08:19 01/26/25 02:15 Levophed In D5w 8mg/250ml IV 02/23/25 08:18 0 mcg/kg/min .Q24H PRN 0 mls/hr PER PROTOCOL Titration Protocol 0.05 MCG/KG/MIN Piperacillin/Tazobactam/Dextrose 3.375 gm in 50 mls @ 100 mls/hr 01/24/25 08:45 01/26/25 06:35 Zosyn IV 01/31/25 08:44 100 mls/hr Q8HR ELVIA Administration Protocol Dextrose/Sodium Chloride 1,000 mls @ 100 mls/hr 01/26/25 07:15 D5-1/2ns IV 02/25/25 07:14 .Q10H ELVIA Insulin Degludec 20 unit 01/25/25 09:00 01/26/25 09:14 Insulin Degludec 5 Unit/0.05 Ml (Per 5 Units) SC 02/24/25 08:59 20 unit QDAY ELVIA Administration Insulin Human Lispro 0 unit 01/25/25 08:45 01/26/25 06:34 Insulin Lispro (Admelog) 1 Unit/0.01 Ml Unit SC 02/24/25 08:44 Not Given Q6HR ELVIA Protocol Ipratropium [place] 0.5 mg 01/24/25 19:03 Ipratropium Rt 0.5 Mg/ 2.5 Ml Nebu INH 02/23/25 19:02 Q6HR PRN SHORTNESS OF BREATH Protocol Levalbuterol HCl 0.63 mg 01/24/25 18:48 Levalbuterol Rt 0.63 Mg/3 Ml Nebu INH 02/23/25 18:47 Q6HR PRN WHEEZING Ondansetron HCl 4 mg 01/23/25 21:13 01/24/25 04:49 Ondansetron Inj 2 Mg/Ml Inj 2 Ml IVP 02/22/25 21:12 4 mg Q6H PRN Administration NAUSEA OR VOMITING Protocol Pantoprazole Sodium 40 mg 01/25/25 09:00 01/26/25 09:13 Pantoprazole Inj 40 Mg Vial IVP 02/24/25 08:59 40 mg BID ELVIA Administration Sodium Chloride 3 ml 01/24/25 18:50 Sodium Chloride Rt Radha 0.9% 3 Ml Nebu INH 02/23/25 18:49 PRN PRN SOLN Plan 74-year-old female with medical history significant for insulin-dependent type 2 diabetes, hypertension, hyperlipidemia, and coronary artery disease presenting with hyperosmolar hyperglycemic state (glucose ~1500, Na 170, osmolality 369) complicated by small bowel ischemia requiring emergent exploratory laparotomy for small bowel resection and anastomosis, now post-op in ICU on pressors and insulin drip. Neurology #no active problems Cardiovascular #Shock, likely distributive due to small bowel ischemia (resolved) 01/24 around 7AM, a sepsis re-evaluation was performed: - Vital signs: T 98F, HR 88, BP: 67/44, RR 26. MAP: 52. Pulse ox 100% on room air. - Focused physical exam: Heart: RRR, no murmurs. peripheral pulses 2+ and symmetric in all extremities. Capillary refill > 2 seconds. Thready pulse. Lungs: clear to auscultation bilaterally. Skin: pale, warm to touch, no mottling. Patient is not responding adequately to IV fluids, with persistent hypotension, elevated lactic acid levels, and worsening abdominal pain. Diagnostic Test: - Point of care ultrasound: IVC was not dilated and difficult to appreciate due to abdominal distention and pain. - Blood cultures drawn prior to antibiotics - no growth to date. Treatment Review (completed): - IV crystalloid fluid bolus - 30 cc/kg given. - Insulin drip for HHS. Treatment Plan: - Continue Zosyn (01/25-01/31). - Hold heparin DVT PPX due to hemoglobin of 6.2. Will restart once hemoglobin is more stabe. - Monitor urine output. #Sinus tachycardia (resolved) DDx: post-op pain vs HHS. Treatment Plan: - Continue to treat HHS. - Hydromorphone 0.5mg IV Q4HR PRN for post-op pain. #History of coronary artery disease - Currently stable, no intervention required at this time. - Will continue home meds when stable. #Primary hypertension - Will continue home meds when stable. Respiratory #Acute hypoxic respiratory failure (resolved) DDx: aspiration vs inflammation infiltrate to base of lungs. Diagnostic Test: - CXR and CT chest: significant bibasilar infiltrates. - Weaned off HFNC. Treatment Plan: - Continue Zosyn (01/25-01/31) for intra-abdominal infection. - Consider chest physiotherapy and incentive spirometry once stable. GI and F/E/N #Small bowel ischemia (post-op day 2) S/p Exploratory laparotomy, small bowel resection and anastomosis. Diagnostic Test: - CTAP: abnormal ischemic small bowel, air and fluid distended, air in the wall of the small bowel and pneumoperitoneum, air droplets in the mesentery. - Per operative note: large portion of ischemic jejunum and ileum. Remaining jejunum and ileum were anastomosed. Patient extubated in OR and transfer back to ICU. - Estimated blood loss during surgery: 50 cc and no transfusion was needed. - Patient had very low-dose of pressor support during procedure. - First bowel movement was shortly after surgery when patient returned to ICU. Per nurse the stool was brown, non-bloody and formed. Treatment Plan: - Hydromorphone 0.5mg IV Q4HR PRN for post-op pain. - Zofran 4mg IV Q6HR PRN nausea. - Zosyn 3.375 gram daily for 7 days (01/25-01/31). - Pantoprazole 40mg IV BID. - Start clear liquid diet. - Offender [employer]ist referral about vitamin supplementation. Patient is at risk for folate (absorbed in jejunum) and vitamin B12 (absorbed in ileum) deficiency. - Patient has multiple risk factors for peripheral artery disease, including coronary artery disease and diabetes. Once the patient is more stable and has recovered from surgery, outpatient follow-up with vascular surgery will be needed for further evaluation, including a CTA to assess for peripheral artery disease. Renal #Acute kidney injury on chronic kidney disease (improving) DDx: dehydration vs hypotension Diagnostic Test: - Admission labs: BUN 85, creatinine 3.4 (baseline 1.1?1.3), eGFR 12. Treatment Plan: - Discontinued D5 LR @ 75ml/hr and transition to 0.5NS @125ml/hr. Patient was initially on D5 due to not being on a diet and receiving insulin for HHS. However, since the patient has now started on a diet, will transition to 1/2 normal saline. - Monitor urine output. - Strict I&Os. - Daily renal panel to trend BUN, Cr, and electrolytes. - Avoid nephrotoxins - Renally dose meds as appropriate. - Nephrology is following. #Anion gap metabolic acidosis (resolved) DDx: lactic acidosis from shock vs DKA vs STEVEN. - VBG: pH 7.22, pCO2 37. - CMP: corrected sodium 170 , bicarb 21.4, chloride 98. - Anion gap: 17. Treatment Plan: - Anticipate improvement with treating underlying cause. #Lactic acidosis (resolved) DDx: shock vs respiratory failure vs HHS Diagnostic Test: - Lactic acid 2.9 --> 4.3 --> 5.8 --> 4.9 --> 2.3 --> 1.3. Treatment Plan: - Monitor serial lactate levels to ensure downtrend. - Continue to treat underlying cause. - Continue IV fluids as needed based on volume status and lactate trend. - Monitor renal function and urine output. Heme #Normocytic Anemia #Acute blood loss DDx: peptic ulcer disease vs upper GI bleed vs blood loss during surgery vs dilutional. Patient no longer having dark/black emesis. Diagnostic Test: - Hemoglobin 11.1 --> 6.2 --> 8.2. - Coagulation panel: PT 12.6, PTT 36.8. - No active signs of bleeding noted. - Chemical DVT prophylaxis held until hemoglobin stabilizes. SCDs ordered. - Per operative report, estimated blood loss was 50cc. Treatment Review (completed): - Transfused 1 unit of pRBCs on 01/15. . Treatment Plan: - Monitor H&H - IVF resuscitation to maintain MAP > 65 - IV Pantoprazole BID. - Transfuse if Hgb < 8. - Reassess for possible GI source if hemoglobin does not improve post- transfusion. If low hemoglobin persists in the setting of abdominal pain or distention, obtain a CT scan to evaluate for intra-abdominal bleeding or blood products. If no evidence of bleeding is found on imaging, consider endoscopic evaluation. #Thrombocytopenia Likely reactive. Diagnostic Test: - Plt 126 --> 91. Treatment Plan: - Monitor CBC. Endo #Hyperosmolar hypernatremia #Hyperchloremia Diagnostic Test: - Corrected sodium at admission: 170 - Goal sodium for the first 24 hours: 155-160. - Goal sodium for the second 24 hours: 142-143. - Goal sodium for 01/16: 148-149. - Optic nerve sheath diameter ultrasound 01/24: not dilated, less than 5mm. Low likelihood of elevated ICP. Treatment Plan: - Goal is to lower serum sodium by no more than 10 mEq/L in 24 hours to prevent cerebral edema. - Sodium check Q4H. - 1/2 NS @125 ml/hr. #Insulin-dependent type 2 diabetes Diagnost Test: - Hemoglobin A1c: 13.7. Treatment Plan: - Discontinued insulin drip. - Lantus 20 units with ISS. #Hypercalcemia Diagnostic Test: - Corrected calcium 7.4. Treatment Plan: - Calcium gluconate. #Hyperosmolar hyperglycemic state (resolved) Diagnostic Test: - On admission labs: - Blood glucose 1528. - Blood osmolarity 379. - Beta hydroxybutyrate 0.9. - UA with negative ketones. - VBG pH 7.22, pCO2 37. Treatment Plan: - Discontinued insulin drip. - Started insulin lantus 20 units and ISS. - Continue D5 LR maintenance at 75ml/hr. - Serum osmo 01/25: 324. - Blood glucose 01/25: 188. - Blood glucose checks Q6H. - Blood glucose goal 140-180. ID #no active problems Health Maintenance: Disposition: Tele. Continue Zosyn until 01/31. Restart home medications as appropriate. DVT prophylaxis: Heparin 5000 subQ. GI prophylaxis: Pantoprazole 40mg IV BID. Diet: clear fluids German: removed 01/26 Lines: Peripherals Drips: none Vent: not on MV CODE STATUS: FULL CODE Patient discussed with my senior resident Dr. Barrett and attending, Dr. Barclay. Garrett Wallis, DO Internal Medicine, PGY-1
[2025-01-26 12:41] LABS: B-Type Natriuretic Peptide 128 pg/mL (0-100)
--- NOTE | 2025-01-26 13:11 | ESPR_ITS ---
<Statement entered by Ezekiel Piña MD - 01/27/25 15:53> I reviewed above note and agree with findings and plans. I have also personally examined the patient with medicine team and went over assessment and plan with medical team including merchandising internship and resident physician. Documentation for date of: 01/26/25 Subjective Subjective Interval history: Patient was downgraded from the ICU to the medical floor and seen at the bedside with family present. Patient denies chest pain, shortness of breath, abdominal pain, nausea, vomiting, or dizziness. Vital signs and labs were reviewed; sodium is elevated at 157, likely due to dehydration. IV fluids (half-normal saline at 100 mL/hr) will continue, with sodium checks every 6 hours and adjustments to fluids as needed. The Brunson catheter will remain in place until tomorrow. Patient is encouraged to ambulate 3 times daily, use incentive spirometry, and work with physiotherapy. Social history reveals the patient resides at [place]. Patient currently on a clear liquid diet, which will be advanced as tolerated tomorrow. Exam Vital Signs Temp Pulse Resp BP Pulse Ox O2 Del Method O2 Flow Rate 98.8 F 94 16 165/83 H 100 High Flow Nasal Cannula 30 01/26/25 08:00 01/26/25 10:35 01/26/25 10:35 01/26/25 09:00 01/26/25 10:35 01/26/25 08:00 01/26/25 10:35 FiO2 30 01/26/25 10:35 Narrative Exam General: Elderly, frail, awake and alert. Head: Normocephalic, atraumatic. Eyes: Pupils equally round and reactive to light. Anicteric. Blind in left eye. Heart: Regular rate and rhythm, no murmurs. No JVD. Peripheral pulses 2+ and symmetric in all extremities. Lungs: Clear to auscultation bilaterally. Non-labored respirations, symmetric chest rise, no use of accessory muscles. Abdomen: Abdominal binder present. Wound dressing is clear, dry, and intact. Neurologic: No gross neurological deficit, and patient able to move all 4 extremities. Extremities: No clubbing, cyanosis, or edema. Capillary refill <2 seconds. Skin warm to touch, no mottling. Skin: No rashes, lesions, or ulcers. Psychiatric: Cooperative, appropriate mood and affect Objective Labs 01/26/25 05:05 01/26/25 16:14 Labs: Laboratory Results - last 24 hr 01/24/25 01/25/25 01/25/25 09:15 14:10 18:51 WBC RBC Hgb 8.2 L D Hct 24.9 L MCV MCH MCHC RDW Std Deviation Plt Count Neut % (Auto) Lymph % (Auto) [place] % (Auto) Eos % (Auto) Baso % (Auto) Neut # (Auto) Lymph # (Auto) [place] # (Auto) Eos # (Auto) Baso # (Auto) Immature Gran # (Auto) Absolute Nucleated RBC Immature Gran % Nucleated RBC % Sodium 153 H 153 H Potassium 4.2 D Chloride 119 H Carbon Dioxide 22.2 Anion Gap 12 BUN 63 H Creatinine 2.2 H Estim Creat Clear Calc 17.4 L eGFR 23 L BUN/Creatinine Ratio 29 H Glucose 158 H Calculated Osmolality 324 H Lactic Acid Calcium 7.2 L Corrected Calcium Phosphorus Magnesium Total Bilirubin AST ALT Alkaline Phosphatase B-Natriuretic Peptide Total Protein Albumin Globulin Albumin/Globulin Ratio Crossmatch See Detail 01/26/25 01/26/25 05:05 10:45 WBC 7.0 D RBC 2.69 L Hgb 8.1 L Hct 24.0 L MCV 89 MCH 30.1 MCHC 33.8 RDW Std Deviation 50.3 H Plt Count 91 L D Neut % (Auto) 62 Lymph % (Auto) 18 [place] % (Auto) 3 Eos % (Auto) 3 Baso % (Auto) 1 Neut # (Auto) 4.3 Lymph # (Auto) 1.3 [place] # (Auto) 0.2 Eos # (Auto) 0.2 Baso # (Auto) 0.1 Immature Gran # (Auto) 0.92 H Absolute Nucleated RBC 0.00 Immature Gran % 13 H Nucleated RBC % 0 Sodium 157 H 158 H Potassium 3.9 Chloride 122 H* Carbon Dioxide 23.5 Anion Gap 12 BUN 49 H Creatinine 1.8 H Estim Creat Clear Calc 21.3 L eGFR 30 L BUN/Creatinine Ratio 27 H Glucose 140 H Calculated Osmolality 326 H Lactic Acid 1.3 Calcium 7.4 L Corrected Calcium 8.2 L Phosphorus 2.4 Magnesium 2.2 Total Bilirubin 0.3 AST 52 H ALT 30 Alkaline Phosphatase 55 D B-Natriuretic Peptide 128 H Total Protein 4.4 L Albumin 3.0 L Globulin 1.4 L Albumin/Globulin Ratio 2.1 Crossmatch ABG Interpretation ABG results: 01/23/25 01/24/25 01/24/25 17:13 05:00 18:55 ABG pH 7.09 L* ABG pCO2 60 H ABG pO2 46 L* ABG HCO3 18 L ABG O2 Saturation 77 L ABG Base Excess -11 L VBG pH 7.22 L 7.25 L VBG pCO2 37 39 VBG pO2 137 H 43 D VBG Base Excess -12 L -10 L 01/24/25 20:50 ABG pH 7.24 L D ABG pCO2 44 D ABG pO2 129 H D ABG HCO3 19 L ABG O2 Saturation 100 H ABG Base Excess -8 L VBG pH VBG pCO2 VBG pO2 VBG Base Excess Quality Measures Quality Measures none Advance care planning discussed with:: patient Assessment & Plan Assessment Current Active Medications: Generic Name Dose Route Start Last Admin Trade Name Freq PRN Reason Stop Dose Admin Dextrose 25 ml 01/23/25 21:13 Dextrose 50%-Water Inj 50 Ml Syringe IV [id number] PRN Blood Sugar - Low Dextrose 25 ml 01/25/25 08:42 Dextrose 50%-Water Inj 50 Ml Syringe IV 02/24/25 08:41 Q15MIN PRN BG 50-70 responsive npo pt Dextrose 50 ml 01/25/25 08:42 Dextrose 50%-Water Inj 50 Ml Syringe IV 02/24/25 08:41 Q15MIN PRN BG <50 OR BG <70 & pt unresponsive Glucagon 1 mg 01/25/25 08:42 Glucagon Inj 1 Mg Vial IM Q15MIN PRN BG <70, and no IV access Hydromorphone HCl 0.5 mg 01/24/25 16:52 01/24/25 20:33 Hydromorphone Inj 2 Mg/Ml Vial IVP 01/29/25 16:43 0.5 mg Q4HR PRN Administration PAIN SCALE 4-10(Mod-Sev Piperacillin/Tazobactam/Dextrose 3.375 gm in 50 mls @ 100 mls/hr 01/24/25 08:45 01/26/25 06:35 Zosyn IV 01/31/25 08:44 100 mls/hr Q8HR ELVIA Administration Protocol Sodium Chloride 1,000 mls @ 120 mls/hr 01/26/25 12:37 Ns 0.45% IV 02/25/25 12:36 .Q8H20M [facility] Insulin Degludec 20 unit 01/25/25 09:00 01/26/25 09:14 Insulin Degludec 5 Unit/0.05 Ml (Per 5 Units) SC 02/24/25 08:59 20 unit QDAY ELVIA Administration Insulin Human Lispro 0 unit 01/26/25 17:00 Insulin Lispro (Admelog) 1 Unit/0.01 Ml Unit SC 02/25/25 16:59 AC ELVIA Protocol Labetalol HCl 10 mg 01/26/25 11:53 Labetalol Inj 5 Mg/Ml Vial 20 Ml IVP 02/25/25 11:52 Q3HR PRN Systolic >180 and HR >75 Ondansetron HCl 4 mg 01/23/25 21:13 01/24/25 04:49 Ondansetron Inj 2 Mg/Ml Inj 2 Ml IVP 02/22/25 21:12 4 mg Q6H PRN Administration NAUSEA OR VOMITING Protocol Pantoprazole Sodium 40 mg 01/25/25 09:00 01/26/25 09:13 Pantoprazole Inj 40 Mg Vial IVP 02/24/25 08:59 40 mg BID ELVIA Administration Plan 74-year-old female with medical history significant for insulin-dependent type 2 diabetes, hypertension, hyperlipidemia, and coronary artery disease presenting with hyperosmolar hyperglycemic state (glucose ~1500, Na 170, osmolality 369) complicated by small bowel ischemia requiring emergent exploratory laparotomy for small bowel resection and anastomosis. Patient downgraded from ICU to medical floor on 01/26. Small Bowel Ischemia (Post-op Day 2) The patient is status post exploratory laparotomy with small bowel resection and anastomosis. Post-operative course has been stable thus far. Perioperative Findings: A large portion of ischemic jejunum and ileum was resected. The remaining jejunum and ileum were successfully anastomosed. The patient was extubated in the operating room and transferred back to the ICU. Bowel Function: The patient had their first bowel movement shortly after returning to the ICU; the stool was brown, non-bloody, and formed, as reported by nursing staff. Plan: - Hydromorphone 0.5 mg IV every 4 hours as needed for post-operative pain. - Zofran 4 mg IV every 6 hours as needed for nausea. - Zosyn 3.375 grams IV daily for 7 days (01/25?01/31). - Refer to porcelain technician for assessment and potential vitamin supplementation, as the patient is at risk for folate and vitamin B12 deficiencies due to the resection of the jejunum and ileum (sites of folate and B12 absorption). - The patient has multiple risk factors for peripheral artery disease, including coronary artery disease and diabetes. Once clinically stable and post-surgery recovery progresses, an outpatient follow-up with vascular surgery will be necessary for further evaluation, including a CTA to assess for peripheral artery disease. #Hyperosmolar hypernatremia #Hyperchloremia - D5W @100 ml/hr. - Na checks q6h #Acute kidney injury on chronic kidney disease (improving) Likely pre-renal from dehydration Admission labs: BUN 85, creatinine 3.4 (baseline 1.1?1.3), eGFR 12. Plan: - Monitor urine output w/ Brunson - Strict I&Os. - Daily renal panel to trend BUN, Cr, and electrolytes. - Avoid nephrotoxins - Renally dose meds as appropriate. - Nephrology is following. #Insulin-dependent type 2 diabetes Hemoglobin A1c: 13.7. HHS resolved, no longer on insulin drip. Plan: - Lantus 20 units with ISS. - Will require need insulin regimen upon D/C #History of coronary artery disease - Currently stable, no intervention required at this time. - Will continue home meds when stable. #Primary hypertension - Will continue home meds when stable. #Normocytic Anemia #Acute blood loss Transfused 1 unit of pRBCs on 01/15. Plan: - Monitor CBC - Transfuse if Hgb < 8. #Hypercalcemia, resolved #Hyperosmolar hyperglycemic state (resolved) #Shock, likely distributive due to small bowel ischemia (resolved) #Sinus tachycardia (resolved) #Anion gap metabolic acidosis (resolved) #Lactic acidosis (resolved) Health Maintenance: Disposition: Tele. Continue Zosyn until 01/31. DVT prophylaxis: Heparin 5000 subQ. GI prophylaxis: Pantoprazole 40mg IV BID. Diet: clear fluids CODE STATUS: FULL CODE Case discussed with my attending Dr. Piña, and senior resident, Dr. Radha Ramirez MD PGY-1
--- NOTE | 2025-01-26 13:52 | ESPR_ITS ---
Documentation for date of: 01/26/25 Subjective Subjective Interval history: Reason for consult: Acute Kidney Injury in the setting of HHS and ischemic bowel History of present illness: 74-year-old Upper Sorbian-speaking female with a past medical history of insulin- dependent type 2 diabetes mellitus, CKD (baseline Cr ~1.1?1.3), hypertension, hyperlipidemia, and CAD, admitted on 01/23/25 for HHS/DKA overlap following 3 days of nausea, vomiting, poor oral intake, and progressive weakness. She was initially found to have severe hyperglycemia (BG >1500), corrected sodium 171, and STEVEN with Cr 3.4 on admission. During hospitalization, she developed worsening abdominal distension and rising lactate (2.9 -> 5.8). CT abdomen revealed extensive small bowel ischemia with pneumoperitoneum and mesenteric air. She underwent emergent exploratory laparotomy today with resection of approximately 280 cm of ischemic jejunum and ileum, leaving 18 cm of proximal jejunum and 101 cm of terminal ileum, followed by primary anastomosis. Nephrology consulted for STEVEN management, fluid and electrolyte optimization, and assessment of renal replacement needs. 01/24/2025: This morning, patient was seen in the ICU prior to surgery. She appeared lethargic but arousable, reported ongoing nausea and abdominal discomfort. No bowel movement since last 5 days and no gas passed since the last . Daughter at bedside noted patient had increasing abdominal distension overnight and appeared weaker. Patient denied chest pain or shortness of breath. Brunson in place with minimal urine output noted. Patient was scheduled for exploratory laparotomy following CT findings consistent with pneumoperitoneum and ischemic small bowel with mesenteric air. After surgery, patient was transferred back to the ICU. She was extubated in the operating room and is now awake but tired, able to respond to questions appropriately. On low dose pressors. Denies chest pain, shortness of breath, or worsening abdominal pain. Brunson catheter remains in place, urine output being monitored. Family at bedside, supportive. Labs: WBC 6.9, Hgb 9.1, Hct 27.9, Plt 151, Na 151 (corrected 156), K 4.4, Cl 116, CO2 17.7, AG 17, BUN 68, Cr 2.6 (from 3.0 yesterday, baseline 1.1?1.3), GFR 19, Glucose 320 (prior 970 -> 487 -> 320), Ca 8.9, Phos 4.1, Mg 2.4, Albumin 3.0, Lactic acid 4.9 ( from 5.8), VBG pH 7.25 / pCO2 39, Lipase 132. 01/26/2025: Patient seen and examined today after being downgraded from ICU to primary team. She was sitting up in the chair, eating, and conversing with family. Reports feeling better overall. Denies chest pain, shortness of breath, abdominal pain, or dizziness. No new complaints. Labs: WBC 7, Hgb 8.1, Hct 24, Plt 91, Na 158 (up from 157 and 153 yesterday), Cl 122, CO2 23.5, Cr 1.8 (improving), Ca 8.2, Phos 2.4, Mg 2.2, Albumin 3.0, Lactic acid 1.3. Exam Vital Signs Temp Pulse Resp BP Pulse Ox O2 Del Method O2 Flow Rate 98.8 F 94 16 165/83 H 100 High Flow Nasal Cannula 30 01/26/25 08:00 01/26/25 10:35 01/26/25 10:35 01/26/25 09:00 01/26/25 10:35 01/26/25 08:00 01/26/25 10:35 FiO2 30 01/26/25 10:35 Narrative Exam General: Awake, alert, sitting upright in chair, no acute distress. HEENT: PERRL, oral mucosa moist. CVS: S1S2 regular, no murmurs, no JVD. Resp: Clear to auscultation bilaterally. Abdomen: Soft, mild distension, non-tender, bowel sounds present. Extremities: No edema. Neuro: Alert and oriented ?3, moves all extremities. Skin: Warm, dry, incision clean and intact. Objective Labs 01/26/25 05:05 01/26/25 16:14 Labs: Laboratory Results - last 24 hr 01/25/25 01/25/25 01/26/25 14:10 18:51 05:05 WBC 7.0 D RBC 2.69 L Hgb 8.2 L D 8.1 L Hct 24.9 L 24.0 L MCV 89 MCH 30.1 MCHC 33.8 RDW Std Deviation 50.3 H Plt Count 91 L D Neut % (Auto) 62 Lymph % (Auto) 18 [place] % (Auto) 3 Eos % (Auto) 3 Baso % (Auto) 1 Neut # (Auto) 4.3 Lymph # (Auto) 1.3 [place] # (Auto) 0.2 Eos # (Auto) 0.2 Baso # (Auto) 0.1 Immature Gran # (Auto) 0.92 H Absolute Nucleated RBC 0.00 Immature Gran % 13 H Nucleated RBC % 0 Sodium 153 H 153 H 157 H Potassium 4.2 D 3.9 Chloride 119 H 122 H* Carbon Dioxide 22.2 23.5 Anion Gap 12 12 BUN 63 H 49 H Creatinine 2.2 H 1.8 H Estim Creat Clear Calc 17.4 L 21.3 L eGFR 23 L 30 L BUN/Creatinine Ratio 29 H 27 H Glucose 158 H 140 H Calculated Osmolality 324 H 326 H Lactic Acid 1.3 Calcium 7.2 L 7.4 L Corrected Calcium 8.2 L Phosphorus 2.4 Magnesium 2.2 Total Bilirubin 0.3 AST 52 H ALT 30 Alkaline Phosphatase 55 D B-Natriuretic Peptide 128 H Total Protein 4.4 L Albumin 3.0 L Globulin 1.4 L Albumin/Globulin Ratio 2.1 01/26/25 10:45 WBC RBC Hgb Hct MCV MCH MCHC RDW Std Deviation Plt Count Neut % (Auto) Lymph % (Auto) [place] % (Auto) Eos % (Auto) Baso % (Auto) Neut # (Auto) Lymph # (Auto) [place] # (Auto) Eos # (Auto) Baso # (Auto) Immature Gran # (Auto) Absolute Nucleated RBC Immature Gran % Nucleated RBC % Sodium 158 H Potassium Chloride Carbon Dioxide Anion Gap BUN Creatinine Estim Creat Clear Calc eGFR BUN/Creatinine Ratio Glucose Calculated Osmolality Lactic Acid Calcium Corrected Calcium Phosphorus Magnesium Total Bilirubin AST ALT Alkaline Phosphatase B-Natriuretic Peptide Total Protein Albumin Globulin Albumin/Globulin Ratio ABG Interpretation ABG results: 01/23/25 01/24/25 01/24/25 17:13 05:00 18:55 ABG pH 7.09 L* ABG pCO2 60 H ABG pO2 46 L* ABG HCO3 18 L ABG O2 Saturation 77 L ABG Base Excess -11 L VBG pH 7.22 L 7.25 L VBG pCO2 37 39 VBG pO2 137 H 43 D VBG Base Excess -12 L -10 L 01/24/25 20:50 ABG pH 7.24 L D ABG pCO2 44 D ABG pO2 129 H D ABG HCO3 19 L ABG O2 Saturation 100 H ABG Base Excess -8 L VBG pH VBG pCO2 VBG pO2 VBG Base Excess Quality Measures Quality Measures VTE prophylaxis Advance care planning discussed with:: patient Assessment & Plan Assessment Current Active Medications: Generic Name Dose Route Start Last Admin Trade Name Freq PRN Reason Stop Dose Admin Dextrose 25 ml 01/23/25 21:13 Dextrose 50%-Water Inj 50 Ml Syringe IV [id number] PRN Blood Sugar - Low Dextrose 25 ml 01/25/25 08:42 Dextrose 50%-Water Inj 50 Ml Syringe IV 02/24/25 08:41 Q15MIN PRN BG 50-70 responsive npo pt Dextrose 50 ml 01/25/25 08:42 Dextrose 50%-Water Inj 50 Ml Syringe IV 02/24/25 08:41 Q15MIN PRN BG <50 OR BG <70 & pt unresponsive Glucagon 1 mg 01/25/25 08:42 Glucagon Inj 1 Mg Vial IM Q15MIN PRN BG <70, and no IV access Hydromorphone HCl 0.5 mg 01/24/25 16:52 01/24/25 20:33 Hydromorphone Inj 2 Mg/Ml Vial IVP 01/29/25 16:43 0.5 mg Q4HR PRN Administration PAIN SCALE 4-10(Mod-Sev Piperacillin/Tazobactam/Dextrose 3.375 gm in 50 mls @ 100 mls/hr 01/24/25 08:45 01/26/25 06:35 Zosyn IV 01/31/25 08:44 100 mls/hr Q8HR ELVIA Administration Protocol Sodium Chloride 1,000 mls @ 120 mls/hr 01/26/25 12:37 Ns 0.45% IV 02/25/25 12:36 .Q8H20M [facility] Insulin Degludec 20 unit 01/25/25 09:00 01/26/25 09:14 Insulin Degludec 5 Unit/0.05 Ml (Per 5 Units) SC 02/24/25 08:59 20 unit QDAY ELVIA Administration Insulin Human Lispro 0 unit 01/26/25 17:00 Insulin Lispro (Admelog) 1 Unit/0.01 Ml Unit SC 02/25/25 16:59 AC [facility] Protocol Labetalol HCl 10 mg 01/26/25 11:53 Labetalol Inj 5 Mg/Ml Vial 20 Ml IVP 02/25/25 11:52 Q3HR PRN Systolic >180 and HR >75 Ondansetron HCl 4 mg 01/23/25 21:13 01/24/25 04:49 Ondansetron Inj 2 Mg/Ml Inj 2 Ml IVP 02/22/25 21:12 4 mg Q6H PRN Administration NAUSEA OR VOMITING Protocol Pantoprazole Sodium 40 mg 01/25/25 09:00 01/26/25 09:13 Pantoprazole Inj 40 Mg Vial IVP 02/24/25 08:59 40 mg BID ELVIA Administration Plan 74-year-old female with IDDM2, CKD, and CAD, previously in ICU for HHS and ischemic bowel now s/p resection, downgraded to floor. Renal function and hemodynamics improving, sodium trending up requiring ongoing correction with ? NS and q6h sodium checks. Continue conservative renal management, avoid nephrotoxins, and reassess daily. # Acute Kidney Injury on CKD (improving) STEVEN secondary to prerenal insult from prior hypotension, ischemia, and dehydration Renal function steadily improving (Cr 3.4 -> 1.8). Good urine output and hemodynamically stable. Plan: * Continue strict I/O and monitor urine output * Maintain adequate oral and IV hydration * Avoid nephrotoxins and adjust medication dosing for renal function * BMP daily while stable # Hypernatremia (Na 158, trending up) Likely due to free water deficit and recent osmotic diuresis. Sodium increased from 153 -> 157 -> 158. Plan: * Switched fluids to ? NS for slower correction; previously on D5?NS * Continue sodium checks q6h * Target Na 150 by tomorrow; avoid rapid correction * Encourage free water intake as tolerated post-op # Hyperchloremia (Cl 122) Secondary to IV fluid administration. Plan: * Continue ? NS * Monitor chloride with BMP trend # Metabolic Acidosis (resolved) Previously mixed AGMA from lactic acidosis and renal dysfunction; now resolved with lactate 1.3 and CO2 23.5. Plan: * No bicarbonate therapy indicated # Lactic Acidosis (resolved) Lactate normalized (1.3 from 5.8). Resolution following bowel resection and improved perfusion. Plan: * Continue hemodynamic monitoring and supportive care Other Active Problems: #Ischemic small bowel s/p resection and anastomosis ? post-op care per surgery #Type 2 Diabetes Mellitus #Macrocytic Anemia #Hypertension #CAD #HLD #Pneumonia Management per ICU team ----- Plan discussed with attending physician Dr. Maria Fernanda Kaplan MD PGY-1 Internal Medicine Attending Provider Attestation/Addendum Patient seen and examined with resident physician Dr. Kaplan. Note reviewed, agree with findings and recommendations. Patient remains in ICU. Admitted with significant elevation in blood sugars, hypernatremia. Acute abdomen noted. S/p ischemic colitis with small bowel resection and anastomosis. Care discussed with ICU team. Continue with IV fluids. Sodium still remains elevated-on D5W. Patient will be downgraded to telemetry. Thank you Dr. Barclay for allowing me to participate in the care of Ms. Slade
[2025-01-26] MEDS: SODIUM CHLORIDE 0.45 % 1,000 ML 120 ML IV (14:57)
[2025-01-26] MEDS: CALCIUM CARBONATE 600 MG TABLET PO (15:01)
[2025-01-26 16:31] LABS: Sodium 157 mMol/L (136-145)
[2025-01-26] MEDS: DEXTROSE 5%-WATER 1,000 ML 100 ML IV (18:32)
--- NOTE | 2025-01-26 18:34 | PD.IMPROG ---
Documentation for date of: 01/26/25 Subjective Subjective Interval history: Hemoglobin hematocrit stable at 8.1 and 24.0 Tolerating liquid diet No need for any invasive GI workup Exam Vital Signs Temp Pulse Resp BP Pulse Ox O2 Del Method O2 Flow Rate 98.8 F 94 16 165/83 H 100 High Flow Nasal Cannula 30 01/26/25 08:00 01/26/25 10:35 01/26/25 10:35 01/26/25 09:00 01/26/25 10:35 01/26/25 08:00 01/26/25 10:35 FiO2 30 01/26/25 10:35 Objective Labs 01/26/25 05:05 01/26/25 16:14 Labs: Laboratory Results - last 24 hr 01/25/25 01/26/25 01/26/25 18:51 05:05 10:45 WBC 7.0 D RBC 2.69 L Hgb 8.1 L Hct 24.0 L MCV 89 MCH 30.1 MCHC 33.8 RDW Std Deviation 50.3 H Plt Count 91 L D Neut % (Auto) 62 Lymph % (Auto) 18 [place] % (Auto) 3 Eos % (Auto) 3 Baso % (Auto) 1 Neut # (Auto) 4.3 Lymph # (Auto) 1.3 [place] # (Auto) 0.2 Eos # (Auto) 0.2 Baso # (Auto) 0.1 Immature Gran # (Auto) 0.92 H Absolute Nucleated RBC 0.00 Immature Gran % 13 H Nucleated RBC % 0 Sodium 153 H 157 H 158 H Potassium 3.9 Chloride 122 H* Carbon Dioxide 23.5 Anion Gap 12 BUN 49 H Creatinine 1.8 H Estim Creat Clear Calc 21.3 L eGFR 30 L BUN/Creatinine Ratio 27 H Glucose 140 H Calculated Osmolality 326 H Lactic Acid 1.3 Calcium 7.4 L Corrected Calcium 8.2 L Phosphorus 2.4 Magnesium 2.2 Total Bilirubin 0.3 AST 52 H ALT 30 Alkaline Phosphatase 55 D B-Natriuretic Peptide 128 H Total Protein 4.4 L Albumin 3.0 L Globulin 1.4 L Albumin/Globulin Ratio 2.1 01/26/25 16:14 WBC RBC Hgb Hct MCV MCH MCHC RDW Std Deviation Plt Count Neut % (Auto) Lymph % (Auto) [place] % (Auto) Eos % (Auto) Baso % (Auto) Neut # (Auto) Lymph # (Auto) [place] # (Auto) Eos # (Auto) Baso # (Auto) Immature Gran # (Auto) Absolute Nucleated RBC Immature Gran % Nucleated RBC % Sodium 157 H Potassium Chloride Carbon Dioxide Anion Gap BUN Creatinine Estim Creat Clear Calc eGFR BUN/Creatinine Ratio Glucose Calculated Osmolality Lactic Acid Calcium Corrected Calcium Phosphorus Magnesium Total Bilirubin AST ALT Alkaline Phosphatase B-Natriuretic Peptide Total Protein Albumin Globulin Albumin/Globulin Ratio Impressions Impression: Ischemic bowel disease requiring exploration resection of the small bowel and primary anastomosis Continue to monitor and advance diet as tolerated ABG Interpretation ABG results: 01/23/25 01/24/25 01/24/25 17:13 05:00 18:55 ABG pH 7.09 L* ABG pCO2 60 H ABG pO2 46 L* ABG HCO3 18 L ABG O2 Saturation 77 L ABG Base Excess -11 L VBG pH 7.22 L 7.25 L VBG pCO2 37 39 VBG pO2 137 H 43 D VBG Base Excess -12 L -10 L 01/24/25 20:50 ABG pH 7.24 L D ABG pCO2 44 D ABG pO2 129 H D ABG HCO3 19 L ABG O2 Saturation 100 H ABG Base Excess -8 L VBG pH VBG pCO2 VBG pO2 VBG Base Excess Assessment & Plan Time Spent With Patient Time: Total time spent is greater than 50% in coordination of care (as documented) at patient's floor/unit and/or counseling patient:
[2025-01-26 20:32] LABS: Sodium 155 mMol/L (136-145)
[2025-01-27] VITALS (15 sets, daily range): BP systolic 140–160; BP diastolic 66–73; PULSE 8–103; RESP 16–21; TEMP 36.3–37.3; O2SAT 97–100
[2025-01-27 02:52] LABS: Sodium 154 mMol/L (136-145)
[2025-01-27] MEDS: PIPER/TAZO 3.375 GM PREMIX 3.375 GM/50 ML BAG IV (05:25)
--- NOTE | 2025-01-27 06:32 | PC.NURSE ---
made MD aware of patient retaining urine. bladder scan 708 ml. per MD straight catheter x 1
[2025-01-27 07:14] LABS: Alanine Aminotransferase 30 U/L (10-49); Albumin, Serum 2.6 gm/dL (3.4-4.8); Albumin/Globulin Ratio 1.3 (1.2-2.2); Alkaline Phosphatase 62 U/L (46-116); Anion Gap 5 (7-16); Aspartate Amino Transferase 39 U/L (0-34); BUN/Creatinine Ratio 15 Ratio (12-20); Bilirubin,Total 0.4 mg/dL (0.3-1.2); Blood Urea Nitrogen 22 mg/dL (9-23); Calcium 6.9 mg/dL (8.3-10.6); Calcium (Corrected) 8.0 mg/dL (8.5-10.1); Carbon Dioxide 22.0 mMol/L (20.0-31.0); Chloride 118 mMol/L (98-107); Creatinine (Component) 1.5 mg/dL (0.6-1.3); Estimated Creatinine Clearance 27.8 mL/min (>60); Globulin 2.0 gm/dL (2.3-3.5); Glucose 122 mg/dL (74-106); Osmolality,Calculated 293 (275-295); Potassium 3.7 mMol/L (3.4-5.1); Sodium 145 mMol/L (136-145); Total Protein 4.6 gm/dL (5.7-8.2); eGFR 37 See Note
[2025-01-27 08:01] LABS: Basophils # (Auto) 0.0 Thou/mm3 (0.0-0.2); Basophils % (Auto) 0 % (0-2.5); Eosinophils # (Auto) 0.2 Thou/mm3 (0.0-0.5); Eosinophils % (Auto) 3 % (0-10); Hematocrit 23.6 % (36.0-46.0); Immature Granulocytes Auto 0.02 Thou/mm3 (0.00-0.00); Lymphocytes # (Auto) 1.2 Thou/mm3 (1.0-4.8); Lymphocytes % (Auto) 16 % (10-50); Mean Corpuscular HGB Conc 32.6 g/dl (31.0-37.0); Mean Corpuscular Hemoglobin 28.9 pg (25.0-35.0); Mean Corpuscular Volume 89 fL (80-100); Monocytes # (Auto) 0.3 Thou/mm3 (0.0-0.8); Monocytes % (Auto) 5 % (0-12); Neutrophils # (Auto) 5.8 Thou/mm3 (1.8-7.7); Neutrophils % (Auto) 76 % (37-80); Nucleated Red Blood Cell # 0.00 Thou/mm3 (0.00-0.00); Nucleated Red Blood Cell % 0 /100 WBC (0); Platelet Count 111 Thou/mm3 (140-440); RDW Standard Deviation 51.9 fL (36.4-46.3); Red Blood Count 2.66 Miln/mm3 (4.00-5.20); White Blood Count 7.6 Thou/mm3 (3.6-11.0)
[2025-01-27 08:18] LABS: Magnesium 2.1 mg/dL (1.6-2.6); Phosphorous 1.8 mg/dL (2.4-5.1); Sodium 153 mMol/L (136-145)
[2025-01-27 08:33] LABS: Hemoglobin 7.7 g/dL (12.0-16.0)
[2025-01-27] MEDS: HEPARIN SOD INJ 5000 UNIT/ML VIAL SC (08:38)
[2025-01-27] MEDS: INSULIN DEGLUDEC 5 UNIT/0.05 ML (PER 5 UNITS) 20 UNIT SC (08:39)
--- NOTE | 2025-01-27 09:31 | PC.SS ---
Update: Patient is ICU downgrade. Monitor patient's ability to tolerate diet.
[2025-01-27] MEDS: NAPH,KPH MBDB 1 PACKET (1.5 GM) PO (09:55)
[2025-01-27] MEDS: ONDANSETRON INJ 2 MG/ML INJ 2 ML 4 MG IVP (09:55)
--- NOTE | 2025-01-27 10:28 | ESPR_ITS ---
Documentation for date of: 01/27/25 Subjective Subjective Interval history: Reason for consult: Acute Kidney Injury in the setting of HHS and ischemic bowel History of present illness: 74-year-old Syriac-speaking female with a past medical history of insulin- dependent type 2 diabetes mellitus, CKD (baseline Cr ~1.1?1.3), hypertension, hyperlipidemia, and CAD, admitted on 01/23/25 for HHS/DKA overlap following 3 days of nausea, vomiting, poor oral intake, and progressive weakness. She was initially found to have severe hyperglycemia (BG >1500), corrected sodium 171, and STEVEN with Cr 3.4 on admission. During hospitalization, she developed worsening abdominal distension and rising lactate (2.9 -> 5.8). CT abdomen revealed extensive small bowel ischemia with pneumoperitoneum and mesenteric air. She underwent emergent exploratory laparotomy today with resection of approximately 280 cm of ischemic jejunum and ileum, leaving 18 cm of proximal jejunum and 101 cm of terminal ileum, followed by primary anastomosis. Nephrology consulted for STEVEN management, fluid and electrolyte optimization, and assessment of renal replacement needs. 01/24/2025: This morning, patient was seen in the ICU prior to surgery. She appeared lethargic but arousable, reported ongoing nausea and abdominal discomfort. No bowel movement since last 5 days and no gas passed since the last . Daughter at bedside noted patient had increasing abdominal distension overnight and appeared weaker. Patient denied chest pain or shortness of breath. Brunson in place with minimal urine output noted. Patient was scheduled for exploratory laparotomy following CT findings consistent with pneumoperitoneum and ischemic small bowel with mesenteric air. After surgery, patient was transferred back to the ICU. She was extubated in the operating room and is now awake but tired, able to respond to questions appropriately. On low dose pressors. Denies chest pain, shortness of breath, or worsening abdominal pain. Brunson catheter remains in place, urine output being monitored. Family at bedside, supportive. Labs: WBC 6.9, Hgb 9.1, Hct 27.9, Plt 151, Na 151 (corrected 156), K 4.4, Cl 116, CO2 17.7, AG 17, BUN 68, Cr 2.6 (from 3.0 yesterday, baseline 1.1?1.3), GFR 19, Glucose 320 (prior 970 -> 487 -> 320), Ca 8.9, Phos 4.1, Mg 2.4, Albumin 3.0, Lactic acid 4.9 ( from 5.8), VBG pH 7.25 / pCO2 39, Lipase 132. 01/26/2025: Patient seen and examined today after being downgraded from ICU to primary team. She was sitting up in the chair, eating, and conversing with family. Reports feeling better overall. Denies chest pain, shortness of breath, abdominal pain, or dizziness. No new complaints. Labs: WBC 7, Hgb 8.1, Hct 24, Plt 91, Na 158 (up from 157 and 153 yesterday), Cl 122, CO2 23.5, Cr 1.8 (improving), Ca 8.2, Phos 2.4, Mg 2.2, Albumin 3.0, Lactic acid 1.3. 01/27/2025: Patient seen and examined this morning sitting up in bed, alert, and conversing comfortably. No complaints of chest pain, shortness of breath, or abdominal discomfort. Appetite improving, tolerating oral intake. D5W fluids were stopped and morning (ordered fell off), so fluids were restarted as sodium began to rise. Agree with restarting D5W rather than switching to ? NS at this point. BP 155/64, HR 86, WBC 7, Hgb 8.1, Hct 24, Plt 91, Na 145 -> 153 (repeat), K 3.7, Cl 118, CO2 22, BUN 22, Cr 1.5 (improved), Glucose 122, Ca 8.0, Phos 1.8, Mg 2.1, Albumin 2.6. Exam Vital Signs Temp Pulse Resp BP Pulse Ox O2 Del Method O2 Flow Rate 97.9 F 86 20 156/66 H 97 Nasal Cannula 1 01/27/25 05:00 01/27/25 05:00 01/27/25 05:00 01/27/25 05:00 01/27/25 05:00 01/27/25 05:00 01/27/25 05:00 FiO2 30 01/26/25 10:35 Narrative Exam General: Awake, alert, sitting upright in chair, no acute distress. HEENT: PERRL, oral mucosa moist. CVS: S1S2 regular, no murmurs, no JVD. Resp: Clear to auscultation bilaterally. Abdomen: Soft, mild distension, non-tender, bowel sounds present. Extremities: No edema. Neuro: Alert and oriented ?3, moves all extremities. Skin: Warm, dry, incision clean and intact. Objective Labs 01/27/25 07:48 01/27/25 14:05 Labs: Laboratory Results - last 24 hr 01/24/25 01/26/25 01/26/25 09:15 05:05 10:45 WBC RBC Hgb Hct MCV MCH MCHC RDW Std Deviation Plt Count Neut % (Auto) Lymph % (Auto) [place] % (Auto) Eos % (Auto) Baso % (Auto) Neut # (Auto) Lymph # (Auto) [place] # (Auto) Eos # (Auto) Baso # (Auto) Immature Gran # (Auto) Absolute Nucleated RBC Immature Gran % Nucleated RBC % Sodium 158 H Potassium Chloride Carbon Dioxide Anion Gap BUN Creatinine Estim Creat Clear Calc eGFR BUN/Creatinine Ratio Glucose Calculated Osmolality Calcium Corrected Calcium Phosphorus Magnesium Total Bilirubin AST ALT Alkaline Phosphatase B-Natriuretic Peptide 128 H Total Protein Albumin Globulin Albumin/Globulin Ratio Crossmatch See Detail 01/26/25 01/26/25 01/27/25 16:14 20:12 02:10 WBC RBC Hgb Hct MCV MCH MCHC RDW Std Deviation Plt Count Neut % (Auto) Lymph % (Auto) [place] % (Auto) Eos % (Auto) Baso % (Auto) Neut # (Auto) Lymph # (Auto) [place] # (Auto) Eos # (Auto) Baso # (Auto) Immature Gran # (Auto) Absolute Nucleated RBC Immature Gran % Nucleated RBC % Sodium 157 H 155 H 154 H Potassium Chloride Carbon Dioxide Anion Gap BUN Creatinine Estim Creat Clear Calc eGFR BUN/Creatinine Ratio Glucose Calculated Osmolality Calcium Corrected Calcium Phosphorus Magnesium Total Bilirubin AST ALT Alkaline Phosphatase B-Natriuretic Peptide Total Protein Albumin Globulin Albumin/Globulin Ratio Crossmatch 01/27/25 01/27/25 06:22 07:48 WBC 7.6 RBC 2.66 L Hgb 7.7 L Hct 23.6 L MCV 89 MCH 28.9 MCHC 32.6 RDW Std Deviation 51.9 H Plt Count 111 L D Neut % (Auto) 76 Lymph % (Auto) 16 [place] % (Auto) 5 Eos % (Auto) 3 Baso % (Auto) 0 Neut # (Auto) 5.8 Lymph # (Auto) 1.2 [place] # (Auto) 0.3 Eos # (Auto) 0.2 Baso # (Auto) 0.0 Immature Gran # (Auto) 0.02 H Absolute Nucleated RBC 0.00 Immature Gran % 0 Nucleated RBC % 0 Sodium 145 153 H Potassium 3.7 Chloride 118 H Carbon Dioxide 22.0 Anion Gap 5 L BUN 22 Creatinine 1.5 H Estim Creat Clear Calc 27.8 L eGFR 37 L BUN/Creatinine Ratio 15 Glucose 122 H Calculated Osmolality 293 Calcium 6.9 L Corrected Calcium 8.0 L Phosphorus 1.8 L Magnesium 2.1 Total Bilirubin 0.4 AST 39 H ALT 30 Alkaline Phosphatase 62 B-Natriuretic Peptide Total Protein 4.6 L Albumin 2.6 L Globulin 2.0 L Albumin/Globulin Ratio 1.3 Crossmatch ABG Interpretation ABG results: 01/23/25 01/24/25 01/24/25 17:13 05:00 18:55 ABG pH 7.09 L* ABG pCO2 60 H ABG pO2 46 L* ABG HCO3 18 L ABG O2 Saturation 77 L ABG Base Excess -11 L VBG pH 7.22 L 7.25 L VBG pCO2 37 39 VBG pO2 137 H 43 D VBG Base Excess -12 L -10 L 01/24/25 20:50 ABG pH 7.24 L D ABG pCO2 44 D ABG pO2 129 H D ABG HCO3 19 L ABG O2 Saturation 100 H ABG Base Excess -8 L VBG pH VBG pCO2 VBG pO2 VBG Base Excess Quality Measures Quality Measures VTE prophylaxis Advance care planning discussed with:: patient Assessment & Plan Assessment Current Active Medications: Generic Name Dose Route Start Last Admin Trade Name Freq PRN Reason Stop Dose Admin Dextrose 25 ml 01/25/25 08:42 Dextrose 50%-Water Inj 50 Ml Syringe IV 02/24/25 08:41 Q15MIN PRN BG 50-70 responsive npo pt Dextrose 50 ml 01/25/25 08:42 Dextrose 50%-Water Inj 50 Ml Syringe IV 02/24/25 08:41 Q15MIN PRN BG <50 OR BG <70 & pt unresponsive Glucagon 1 mg 01/25/25 08:42 Glucagon Inj 1 Mg Vial IM Q15MIN PRN BG <70, and no IV access Heparin Sodium (Porcine) 5,000 unit 01/26/25 21:00 01/27/25 08:38 Heparin Sod Inj 5000 Unit/Ml Vial SC 02/09/25 14:14 5,000 unit Q12HR ELVIA Administration Protocol Hydromorphone HCl 0.5 mg 01/24/25 16:52 01/24/25 20:33 Hydromorphone Inj 2 Mg/Ml Vial IVP 01/29/25 16:43 0.5 mg Q4HR PRN Administration PAIN SCALE 4-10(Mod-Sev Dextrose 1,000 mls @ 100 mls/hr 01/27/25 10:00 D5w IV 02/26/25 09:59 .Q10H ELVIA Insulin Degludec 20 unit 01/25/25 09:00 01/27/25 08:39 Insulin Degludec 5 Unit/0.05 Ml (Per 5 Units) SC 02/24/25 08:59 20 unit QDAY ELVIA Administration Insulin Human Lispro 0 unit 01/26/25 17:00 01/27/25 07:45 Insulin Lispro (Admelog) 1 Unit/0.01 Ml Unit SC 02/25/25 16:59 Not Given ACHS [facility] Protocol Labetalol HCl 10 mg 01/26/25 11:53 Labetalol Inj 5 Mg/Ml Vial 20 Ml IVP 02/25/25 11:52 Q3HR PRN Systolic >180 and HR >75 Ondansetron HCl 4 mg 01/23/25 21:13 01/27/25 09:55 Ondansetron Inj 2 Mg/Ml Inj 2 Ml IVP 02/22/25 21:12 4 mg Q6H PRN Administration NAUSEA OR VOMITING Protocol Pantoprazole Sodium 40 mg 01/25/25 09:00 01/27/25 08:41 Pantoprazole Inj 40 Mg Vial IVP 02/24/25 08:59 40 mg BID ELVIA Administration Plan 74-year-old female with IDDM2, CKD, and CAD, s/p small bowel resection for ischemic bowel, downgraded to telemetry. Sodium rebounding after fluids were stopped; D5W restarted at 100 mL/hr with q4h checks. Renal function improving. Continue supportive management, gradual sodium correction, and daily renal monitoring. # Acute Kidney Injury on CKD (improving) STEVEN secondary to prerenal insult from prior hypotension, ischemia, and dehydration Renal function continues to improve (Cr 3.4 -> 1.8 -> 1.5). Good urine output, hemodynamically stable, and tolerating oral intake. Plan: * Continue to monitor urine output and renal panel daily * Maintain adequate hydration with D5W at 100 mL/hr * Avoid nephrotoxins and renally dose medications * BMP daily # Hypernatremia (Na 145 -> 153) Likely due to free water deficit and recent osmotic diuresis. Sodium rising again after discontinuation of D5W earlier this morning. Plan: * Continue D5W at 100 mL/hr * Sodium checks q4h * Goal Na 145; avoid correction >10 mEq/L/24 h * Reassess fluid rate based on next sodium trend # Hypophosphatemia (Phos 1.8) Likely related to refeeding and postoperative nutritional shifts. Plan: * Replete with IV potassium phosphorus * Repeat level tomorrow # Hypoalbuminemia (Albumin 2.6) Likely secondary to poor intake and acute illness. Plan: * Encourage protein intake as tolerated * Nutritional supplementation per dietitian # Hyperchloremia (Cl 118) Secondary to IV fluid administration. Plan: * Continue fluids * Monitor chloride with BMP trend # Metabolic Acidosis (resolved) Previously mixed AGMA from lactic acidosis and renal dysfunction; now resolved with lactate 1.3 and CO2 22. Plan: * No bicarbonate therapy indicated # Lactic Acidosis (resolved) Lactate normalized (1.3 from 5.8). Resolution following bowel resection and improved perfusion. Plan: * Continue hemodynamic monitoring and supportive care Other Active Problems: #Ischemic small bowel s/p resection and anastomosis ? post-op care per surgery #Type 2 Diabetes Mellitus #Macrocytic Anemia #Hypertension #CAD #HLD #Pneumonia Management per primary team ----- Plan discussed with attending physician Dr. Maria Fernanda Kaplan MD PGY-1 Internal Medicine Attending Provider Attestation/Addendum Patient currently seen and examined with resident physician Dr. Kaplan. Note reviewed, agree with findings and recommendations. Out of ICU. Blood sugar seems to be better. Sodium is better. Will give him 1 more liter D5 W Status post ischemic bowel and bowel surgery.
[2025-01-27] MEDS: DEXTROSE 5%-WATER 1,000 ML 100 ML IV (10:35)
--- NOTE | 2025-01-27 11:15 | ESPR_ITS ---
<Statement entered by Ezekiel Piña MD - 02/05/25 07:14> I reviewed above note and agree with findings and plans. I have also personally examined the patient with medicine team and went over assessment and plan with medical team including exercise science internship and resident physician. <Statement entered by Mariya Braun MD - 01/27/25 14:39> Patient was seen and examined at bedside. No acute overnight events. Abdominal pain significantly subsided. Patient will continue on clear liquid diet, advance as tolerated. Will close monitor electrolyte disbalance, hypophosphatemia was noted, replaced. Surgery was contacted, there is a concern for short-bowel syndrome, will have dietitian on board and will follow-up with further recommendations. PT was placed, will continue close monitor. I personally saw and examined the patient and discussed the assessment and plan with the entire medicine team, including my attending DrJack , Mariya Braun M.D. PGY-3 Disclaimer: Despite multiple revisions, due to the dictation software being used, the document bellow may not be free of grammatical errors including phonetic/typographic errors. However, this does not deter from our commitment to providing health care in the patient's best interest in mind. Documentation for date of: 01/27/25 Subjective Subjective Interval history: The patient was seen at the bedside with family present and denies chest pain, shortness of breath, abdominal pain, nausea, vomiting, or dizziness. Vital signs and labs were reviewed, with sodium elevated at 153. IV fluids (D5W at 50 mL/hr) are ongoing, with sodium checks every 6 hours and adjustments as needed, aiming for a target sodium of 145 today. Once Na 145 achieved, stop IVF. Bladder scans are conducted every 4 hours with straight catheterization as necessary. Given the patient's risk for short-bowel syndrome after significant small bowel resection, the dietitian will provide recommendations. The patient is on a clear liquid diet, which will be advanced as tolerated starting tomorrow, after vomiting today. The patient is encouraged to ambulate three times daily, use incentive spirometry, and work with physiotherapy for mobility. Social history reveals the patient resides at [place]. Exam Vital Signs Temp Pulse Resp BP Pulse Ox O2 Del Method O2 Flow Rate 97.9 F 86 20 156/66 H 97 Nasal Cannula 1 01/27/25 05:00 01/27/25 05:00 01/27/25 05:00 01/27/25 05:00 01/27/25 05:00 01/27/25 05:00 01/27/25 05:00 FiO2 30 01/26/25 10:35 Narrative Exam General: Elderly, frail, awake and alert. Head: Normocephalic, atraumatic. Eyes: Pupils equally round and reactive to light. Anicteric. Blind in left eye. Heart: Regular rate and rhythm, no murmurs. No JVD. Peripheral pulses 2+ and symmetric in all extremities. Lungs: Clear to auscultation bilaterally. Non-labored respirations, symmetric chest rise, no use of accessory muscles. Abdomen: Abdominal binder present. Wound dressing is clear, dry, and intact. Neurologic: No gross neurological deficit, and patient able to move all 4 extremities. Extremities: No clubbing, cyanosis, or edema. Capillary refill <2 seconds. Skin warm to touch, no mottling. Skin: No rashes, lesions, or ulcers. Psychiatric: Cooperative, appropriate mood and affect Objective Labs 01/27/25 07:48 01/27/25 14:05 Labs: Laboratory Results - last 24 hr 01/24/25 01/26/25 01/26/25 09:15 05:05 16:14 WBC RBC Hgb Hct MCV MCH MCHC RDW Std Deviation Plt Count Neut % (Auto) Lymph % (Auto) [place] % (Auto) Eos % (Auto) Baso % (Auto) Neut # (Auto) Lymph # (Auto) [place] # (Auto) Eos # (Auto) Baso # (Auto) Immature Gran # (Auto) Absolute Nucleated RBC Immature Gran % Nucleated RBC % Sodium 157 H Potassium Chloride Carbon Dioxide Anion Gap BUN Creatinine Estim Creat Clear Calc eGFR BUN/Creatinine Ratio Glucose Calculated Osmolality Calcium Corrected Calcium Phosphorus Magnesium Total Bilirubin AST ALT Alkaline Phosphatase B-Natriuretic Peptide 128 H Total Protein Albumin Globulin Albumin/Globulin Ratio Crossmatch See Detail 01/26/25 01/27/25 01/27/25 20:12 02:10 06:22 WBC RBC Hgb Hct MCV MCH MCHC RDW Std Deviation Plt Count Neut % (Auto) Lymph % (Auto) [place] % (Auto) Eos % (Auto) Baso % (Auto) Neut # (Auto) Lymph # (Auto) [place] # (Auto) Eos # (Auto) Baso # (Auto) Immature Gran # (Auto) Absolute Nucleated RBC Immature Gran % Nucleated RBC % Sodium 155 H 154 H 145 Potassium 3.7 Chloride 118 H Carbon Dioxide 22.0 Anion Gap 5 L BUN 22 Creatinine 1.5 H Estim Creat Clear Calc 27.8 L eGFR 37 L BUN/Creatinine Ratio 15 Glucose 122 H Calculated Osmolality 293 Calcium 6.9 L Corrected Calcium 8.0 L Phosphorus Magnesium Total Bilirubin 0.4 AST 39 H ALT 30 Alkaline Phosphatase 62 B-Natriuretic Peptide Total Protein 4.6 L Albumin 2.6 L Globulin 2.0 L Albumin/Globulin Ratio 1.3 Crossmatch 01/27/25 07:48 WBC 7.6 RBC 2.66 L Hgb 7.7 L Hct 23.6 L MCV 89 MCH 28.9 MCHC 32.6 RDW Std Deviation 51.9 H Plt Count 111 L D Neut % (Auto) 76 Lymph % (Auto) 16 [place] % (Auto) 5 Eos % (Auto) 3 Baso % (Auto) 0 Neut # (Auto) 5.8 Lymph # (Auto) 1.2 [place] # (Auto) 0.3 Eos # (Auto) 0.2 Baso # (Auto) 0.0 Immature Gran # (Auto) 0.02 H Absolute Nucleated RBC 0.00 Immature Gran % 0 Nucleated RBC % 0 Sodium 153 H Potassium Chloride Carbon Dioxide Anion Gap BUN Creatinine Estim Creat Clear Calc eGFR BUN/Creatinine Ratio Glucose Calculated Osmolality Calcium Corrected Calcium Phosphorus 1.8 L Magnesium 2.1 Total Bilirubin AST ALT Alkaline Phosphatase B-Natriuretic Peptide Total Protein Albumin Globulin Albumin/Globulin Ratio Crossmatch ABG Interpretation ABG results: 01/23/25 01/24/25 01/24/25 17:13 05:00 18:55 ABG pH 7.09 L* ABG pCO2 60 H ABG pO2 46 L* ABG HCO3 18 L ABG O2 Saturation 77 L ABG Base Excess -11 L VBG pH 7.22 L 7.25 L VBG pCO2 37 39 VBG pO2 137 H 43 D VBG Base Excess -12 L -10 L 01/24/25 20:50 ABG pH 7.24 L D ABG pCO2 44 D ABG pO2 129 H D ABG HCO3 19 L ABG O2 Saturation 100 H ABG Base Excess -8 L VBG pH VBG pCO2 VBG pO2 VBG Base Excess Quality Measures Quality Measures VTE prophylaxis Advance care planning discussed with:: patient Assessment & Plan Assessment Current Active Medications: Generic Name Dose Route Start Last Admin Trade Name Freq PRN Reason Stop Dose Admin Dextrose 25 ml 01/25/25 08:42 Dextrose 50%-Water Inj 50 Ml Syringe IV 02/24/25 08:41 Q15MIN PRN BG 50-70 responsive npo pt Dextrose 50 ml 01/25/25 08:42 Dextrose 50%-Water Inj 50 Ml Syringe IV 02/24/25 08:41 Q15MIN PRN BG <50 OR BG <70 & pt unresponsive Glucagon 1 mg 01/25/25 08:42 Glucagon Inj 1 Mg Vial IM Q15MIN PRN BG <70, and no IV access Heparin Sodium (Porcine) 5,000 unit 01/26/25 21:00 01/27/25 08:38 Heparin Sod Inj 5000 Unit/Ml Vial SC 02/09/25 14:14 5,000 unit Q12HR ELVIA Administration Protocol Hydromorphone HCl 0.5 mg 01/24/25 16:52 01/24/25 20:33 Hydromorphone Inj 2 Mg/Ml Vial IVP 01/29/25 16:43 0.5 mg Q4HR PRN Administration PAIN SCALE 4-10(Mod-Sev Dextrose 1,000 mls @ 100 mls/hr 01/27/25 10:00 01/27/25 10:35 D5w IV 02/26/25 09:59 100 mls/hr .Q10H ELVIA Administration Insulin Degludec 20 unit 01/25/25 09:00 01/27/25 08:39 Insulin Degludec 5 Unit/0.05 Ml (Per 5 Units) SC 02/24/25 08:59 20 unit QDAY ELVIA Administration Insulin Human Lispro 0 unit 01/26/25 17:00 01/27/25 07:45 Insulin Lispro (Admelog) 1 Unit/0.01 Ml Unit SC 02/25/25 16:59 Not Given ACHS [facility] Protocol Labetalol HCl 10 mg 01/26/25 11:53 Labetalol Inj 5 Mg/Ml Vial 20 Ml IVP 02/25/25 11:52 Q3HR PRN Systolic >180 and HR >75 Ondansetron HCl 4 mg 01/23/25 21:13 01/27/25 09:55 Ondansetron Inj 2 Mg/Ml Inj 2 Ml IVP 02/22/25 21:12 4 mg Q6H PRN Administration NAUSEA OR VOMITING Protocol Pantoprazole Sodium 40 mg 01/25/25 09:00 01/27/25 08:41 Pantoprazole Inj 40 Mg Vial IVP 02/24/25 08:59 40 mg BID ELVIA Administration Plan 74-year-old female with medical history significant for insulin-dependent type 2 diabetes, hypertension, hyperlipidemia, and coronary artery disease presenting with hyperosmolar hyperglycemic state (glucose ~1500, Na 170, osmolality 369) complicated by small bowel ischemia requiring emergent exploratory laparotomy for small bowel resection and anastomosis. Patient downgraded from ICU to medical floor on 01/26 for mgx for ongoing issues. Small Bowel Ischemia (Post-op Day 3) The patient is status post exploratory laparotomy with small bowel resection and anastomosis. Post-operative course has been stable thus far. Perioperative Findings: A large portion of ischemic jejunum and ileum was resected 280cm. The remaining jejunum and ileum were successfully anastomosed. The patient was extubated in the operating room and transferred back to the ICU. Bowel Function: The patient had their first bowel movement shortly after returning to the ICU; the stool was brown, non-bloody, and formed, as reported by nursing staff. Plan: - Hydromorphone 0.5 mg IV every 4 hours as needed for post-operative pain. - Zofran 4 mg IV every 6 hours as needed for nausea. - Zosyn STOPPED (01/25?01/27) - no praveena perforation per surgery - Refer to risk consultant for assessment and potential vitamin supplementation, as the patient is at risk for folate and vitamin B12 deficiencies due to the resection of the jejunum and ileum (sites of folate and B12 absorption). - The patient has multiple risk factors for peripheral artery disease, including coronary artery disease and diabetes. Once clinically stable and post-surgery recovery progresses, an outpatient follow-up with vascular surgery will be necessary for further evaluation, including a CTA to assess for peripheral artery disease. #Hyperosmolar hypernatremia #Hyperchloremia Na 153 ->149 Plan - D5W @50 ml/hr. - Na checks q6h - Target Na 145 for today, once achieved can STOP IVF #Acute kidney injury on chronic kidney disease (improving) Likely pre-renal from dehydration Admission labs: BUN 85, creatinine 3.4 (baseline 1.1?1.3), eGFR 12. Plan: - Monitor urine output w/ Brunson - Strict I&Os. - Daily renal panel to trend BUN, Cr, and electrolytes. - Avoid nephrotoxins - Renally dose meds as appropriate. - Nephrology is following. #Insulin-dependent type 2 diabetes Hemoglobin A1c: 13.7. HHS resolved, no longer on insulin drip. Plan: - Lantus 20 units with ISS. - Will require need insulin regimen upon D/C #History of coronary artery disease - Currently stable, no intervention required at this time. - Will continue home meds when stable. #Primary hypertension - Will continue home meds when stable. #Normocytic Anemia #Acute blood loss Transfused 1 unit of pRBCs on 01/15. Plan: - Monitor CBC - Transfuse if Hgb < 8. #Hypercalcemia, resolved #Hyperosmolar hyperglycemic state (resolved) #Shock, likely distributive due to small bowel ischemia (resolved) #Sinus tachycardia (resolved) #Anion gap metabolic acidosis (resolved) #Lactic acidosis (resolved) Health Maintenance: Disposition: Tele DVT prophylaxis: Heparin 5000 subQ. GI prophylaxis: Pantoprazole 40mg IV BID. Diet: clear fluids CODE STATUS: FULL CODE Case discussed with my attending Dr. Piña, and senior resident, Dr. Aparna Ramirez MD PGY-1
[2025-01-27] MEDS: INSULIN LISPRO (AdmeLOG) 1 UNIT/0.01 ML UNIT SC ×2 (13:00→17:55)
[2025-01-27 14:36] LABS: Sodium 149 mMol/L (136-145)
--- NOTE | 2025-01-27 16:47 | PD.SURPROG ---
Documentation for date of: 01/27/25 Subjective Subjective Brief History: 74F with HTN, HLD, DMII (A1c 13), CAD, admitted 01/23 with 3-day history of weakness, poor oral intake and nausea/vomiting, with findings consistent with HHS. Pt was admitted to ICU and then overnight developed worsening abdominal distention, AXR showing stool burden and CT performed today concerning for ischemic small bowel with air droplets in the mesentery and pneumoperitoneum. Pt was started on pressor support, has an increasing lactate Narrative: Patient was transferred from ICU to telemetry yesterday, this morning had an episode of vomiting after drinking clears but reports feeling a bit better this afternoon with pain controlled. Remaining afebrile with normal WBC Exam Vital Signs Temp Pulse Resp BP Pulse Ox O2 Del Method O2 Flow Rate 98.8 F 74 24 H 128/69 96 Nasal Cannula 3 01/27/25 16:45 01/27/25 16:45 01/27/25 16:45 01/27/25 16:45 01/27/25 16:45 01/27/25 16:45 01/27/25 16:45 FiO2 30 01/26/25 10:35 Constitutional Constitutional: no acute distress Routine Respiratory Exam Respiratory: Present no resp distress Routine Abdominal Exam Abdominal: Present soft and wound (Midline wound C/D/I, no erythema); Absent tenderness or distended Results Results: Laboratory Laboratory results: results reviewed Assessment & Plan Plan 74F with HTN, HLD, DMII (A1c 13), CAD, admitted 01/23 with 3-day history of weakness, poor oral intake and nausea/vomiting, with findings consistent with HHS, course complicated by small bowel ischemia, now s/p emergent ex lap with small bowel resection and anastamosis 01/24, gradually recovering Continue CLD for now, appreciate RD recs as she is at risk for short bowel syndrome Encourage OOB/ambulation PROCEDURES: Procedures Exploratory laparotomy, small bowel resection and anastomosis, washout
[2025-01-27 20:55] LABS: Sodium 150 mMol/L (136-145)
--- NOTE | 2025-01-27 21:48 | PD.IMPROG ---
Documentation for date of: 01/27/25 Subjective Subjective Interval history: Patient evaluated hemoglobin hematocrit 7.7 and 23.6 with a WBC count of 7.6 Exam Vital Signs Temp Pulse Resp BP Pulse Ox O2 Del Method O2 Flow Rate 98.5 F 80 16 147/70 H 100 Nasal Cannula 1 01/27/25 20:20 01/27/25 20:20 01/27/25 20:20 01/27/25 20:20 01/27/25 20:20 01/27/25 20:20 01/27/25 20:20 FiO2 30 01/27/25 19:00 Objective Labs 01/27/25 07:48 01/27/25 20:27 Labs: Laboratory Results - last 24 hr 01/24/25 01/27/25 01/27/25 09:15 02:10 06:22 WBC RBC Hgb Hct MCV MCH MCHC RDW Std Deviation Plt Count Neut % (Auto) Lymph % (Auto) [place] % (Auto) Eos % (Auto) Baso % (Auto) Neut # (Auto) Lymph # (Auto) [place] # (Auto) Eos # (Auto) Baso # (Auto) Immature Gran # (Auto) Absolute Nucleated RBC Immature Gran % Nucleated RBC % Sodium 154 H 145 Potassium 3.7 Chloride 118 H Carbon Dioxide 22.0 Anion Gap 5 L BUN 22 Creatinine 1.5 H Estim Creat Clear Calc 27.8 L eGFR 37 L BUN/Creatinine Ratio 15 Glucose 122 H Calculated Osmolality 293 Calcium 6.9 L Corrected Calcium 8.0 L Phosphorus Magnesium Total Bilirubin 0.4 AST 39 H ALT 30 Alkaline Phosphatase 62 Total Protein 4.6 L Albumin 2.6 L Globulin 2.0 L Albumin/Globulin Ratio 1.3 Crossmatch See Detail 01/27/25 01/27/25 01/27/25 07:48 14:05 20:27 WBC 7.6 RBC 2.66 L Hgb 7.7 L Hct 23.6 L MCV 89 MCH 28.9 MCHC 32.6 RDW Std Deviation 51.9 H Plt Count 111 L D Neut % (Auto) 76 Lymph % (Auto) 16 [place] % (Auto) 5 Eos % (Auto) 3 Baso % (Auto) 0 Neut # (Auto) 5.8 Lymph # (Auto) 1.2 [place] # (Auto) 0.3 Eos # (Auto) 0.2 Baso # (Auto) 0.0 Immature Gran # (Auto) 0.02 H Absolute Nucleated RBC 0.00 Immature Gran % 0 Nucleated RBC % 0 Sodium 153 H 149 H 150 H Potassium Chloride Carbon Dioxide Anion Gap BUN Creatinine Estim Creat Clear Calc eGFR BUN/Creatinine Ratio Glucose Calculated Osmolality Calcium Corrected Calcium Phosphorus 1.8 L Magnesium 2.1 Total Bilirubin AST ALT Alkaline Phosphatase Total Protein Albumin Globulin Albumin/Globulin Ratio Crossmatch Impressions Impression: Status post expiratory laparotomy and small bowel resection for ischemic bowel disease doing well Continue current management ABG Interpretation ABG results: 01/23/25 01/24/25 01/24/25 17:13 05:00 18:55 ABG pH 7.09 L* ABG pCO2 60 H ABG pO2 46 L* ABG HCO3 18 L ABG O2 Saturation 77 L ABG Base Excess -11 L VBG pH 7.22 L 7.25 L VBG pCO2 37 39 VBG pO2 137 H 43 D VBG Base Excess -12 L -10 L 01/24/25 20:50 ABG pH 7.24 L D ABG pCO2 44 D ABG pO2 129 H D ABG HCO3 19 L ABG O2 Saturation 100 H ABG Base Excess -8 L VBG pH VBG pCO2 VBG pO2 VBG Base Excess Assessment & Plan Time Spent With Patient Time: Total time spent is greater than 50% in coordination of care (as documented) at patient's floor/unit and/or counseling patient:
[2025-01-28] VITALS (14 sets, daily range): BP systolic 146–159; BP diastolic 64–75; PULSE 81–113; RESP 15–99; TEMP 36.8–37.4; O2SAT 95–99; BMI 24.6
[2025-01-28 02:11] LABS: Sodium 149 mMol/L (136-145)
[2025-01-28] MEDS: DEXTROSE 5%-WATER 1,000 ML 100 ML IV (04:10)
[2025-01-28 05:53] LABS: Basophils # (Auto) 0.0 Thou/mm3 (0.0-0.2); Basophils % (Auto) 0 % (0-2.5); Eosinophils # (Auto) 0.1 Thou/mm3 (0.0-0.5); Eosinophils % (Auto) 2 % (0-10); Hematocrit 23.3 % (36.0-46.0); Immature Granulocytes Auto 0.05 Thou/mm3 (0.00-0.00); Lymphocytes # (Auto) 1.3 Thou/mm3 (1.0-4.8); Lymphocytes % (Auto) 24 % (10-50); Mean Corpuscular HGB Conc 33.0 g/dl (31.0-37.0); Mean Corpuscular Hemoglobin 29.7 pg (25.0-35.0); Mean Corpuscular Volume 90 fL (80-100); Monocytes # (Auto) 0.4 Thou/mm3 (0.0-0.8); Monocytes % (Auto) 8 % (0-12); Neutrophils # (Auto) 3.6 Thou/mm3 (1.8-7.7); Neutrophils % (Auto) 66 % (37-80); Nucleated Red Blood Cell # 0.00 Thou/mm3 (0.00-0.00); Nucleated Red Blood Cell % 0 /100 WBC (0); Platelet Count 87 Thou/mm3 (140-440); RDW Standard Deviation 52.8 fL (36.4-46.3); Red Blood Count 2.59 Miln/mm3 (4.00-5.20); White Blood Count 5.4 Thou/mm3 (3.6-11.0)
[2025-01-28 05:57] LABS: Hemoglobin 7.7 g/dL (12.0-16.0)
[2025-01-28 06:23] LABS: Alanine Aminotransferase 28 U/L (10-49); Albumin, Serum 3.1 gm/dL (3.4-4.8); Albumin/Globulin Ratio 1.8 (1.2-2.2); Alkaline Phosphatase 74 U/L (46-116); Anion Gap 13 (7-16); Aspartate Amino Transferase 37 U/L (0-34); BUN/Creatinine Ratio 20 Ratio (12-20); Bilirubin,Total 0.3 mg/dL (0.3-1.2); Blood Urea Nitrogen 24 mg/dL (9-23); Calcium 7.1 mg/dL (8.3-10.6); Calcium (Corrected) 7.8 mg/dL (8.5-10.1); Carbon Dioxide 22.2 mMol/L (20.0-31.0); Chloride 114 mMol/L (98-107); Creatinine (Component) 1.2 mg/dL (0.6-1.3); Estimated Creatinine Clearance 35.0 mL/min (>60); Globulin 1.7 gm/dL (2.3-3.5); Glucose 57 mg/dL (74-106); Osmolality,Calculated 298 (275-295); Potassium 3.7 mMol/L (3.4-5.1); Sodium 149 mMol/L (136-145); Total Protein 4.8 gm/dL (5.7-8.2); eGFR 48 See Note
--- NOTE | 2025-01-28 09:28 | PC.SS ---
Update: Plan is to advance diet and to correct electrolytes. Physical therapy is pending.
[2025-01-28] MEDS: POTASSIUM PHOS 22.5 MMOL in SODIUM CHLORIDE 0.9% 500 ML 500 ML 82.778 MMOL IV (09:39)
[2025-01-28] MEDS: SPIRONOLACTONE 25 MG TABLET 100 MG PO (09:39)
[2025-01-28] MEDS: HEPARIN SOD INJ 5000 UNIT/ML VIAL SC (09:40)
[2025-01-28] MEDS: INSULIN DEGLUDEC 5 UNIT/0.05 ML (PER 5 UNITS) 20 UNIT SC (09:40)
[2025-01-28 09:45] LABS: Phosphorous 1.6 mg/dL (2.4-5.1); Sodium 144 mMol/L (136-145)
[2025-01-28] MEDS: DEXTROSE 5%-WATER 500 ML 125 ML IV (10:06)
--- NOTE | 2025-01-28 10:37 | PC.SS ---
Rounding Note: Plan is to correct patient's sodium level. Patient receiving IV fluids. Diet to be advanced.
--- NOTE | 2025-01-28 11:04 | ESPR_ITS ---
Documentation for date of: 01/28/25 Subjective Subjective Interval history: Reason for consult: Acute Kidney Injury in the setting of HHS and ischemic bowel History of present illness: 74-year-old English-speaking female with a past medical history of insulin- dependent type 2 diabetes mellitus, CKD (baseline Cr ~1.1?1.3), hypertension, hyperlipidemia, and CAD, admitted on 01/23/25 for HHS/DKA overlap following 3 days of nausea, vomiting, poor oral intake, and progressive weakness. She was initially found to have severe hyperglycemia (BG >1500), corrected sodium 171, and STEVEN with Cr 3.4 on admission. During hospitalization, she developed worsening abdominal distension and rising lactate (2.9 -> 5.8). CT abdomen revealed extensive small bowel ischemia with pneumoperitoneum and mesenteric air. She underwent emergent exploratory laparotomy today with resection of approximately 280 cm of ischemic jejunum and ileum, leaving 18 cm of proximal jejunum and 101 cm of terminal ileum, followed by primary anastomosis. Nephrology consulted for STEVEN management, fluid and electrolyte optimization, and assessment of renal replacement needs. 01/24/2025: This morning, patient was seen in the ICU prior to surgery. She appeared lethargic but arousable, reported ongoing nausea and abdominal discomfort. No bowel movement since last 5 days and no gas passed since the last . Daughter at bedside noted patient had increasing abdominal distension overnight and appeared weaker. Patient denied chest pain or shortness of breath. Brunson in place with minimal urine output noted. Patient was scheduled for exploratory laparotomy following CT findings consistent with pneumoperitoneum and ischemic small bowel with mesenteric air. After surgery, patient was transferred back to the ICU. She was extubated in the operating room and is now awake but tired, able to respond to questions appropriately. On low dose pressors. Denies chest pain, shortness of breath, or worsening abdominal pain. Brunson catheter remains in place, urine output being monitored. Family at bedside, supportive. Labs: WBC 6.9, Hgb 9.1, Hct 27.9, Plt 151, Na 151 (corrected 156), K 4.4, Cl 116, CO2 17.7, AG 17, BUN 68, Cr 2.6 (from 3.0 yesterday, baseline 1.1?1.3), GFR 19, Glucose 320 (prior 970 -> 487 -> 320), Ca 8.9, Phos 4.1, Mg 2.4, Albumin 3.0, Lactic acid 4.9 ( from 5.8), VBG pH 7.25 / pCO2 39, Lipase 132. 01/26/2025: Patient seen and examined today after being downgraded from ICU to primary team. She was sitting up in the chair, eating, and conversing with family. Reports feeling better overall. Denies chest pain, shortness of breath, abdominal pain, or dizziness. No new complaints. Labs: WBC 7, Hgb 8.1, Hct 24, Plt 91, Na 158 (up from 157 and 153 yesterday), Cl 122, CO2 23.5, Cr 1.8 (improving), Ca 8.2, Phos 2.4, Mg 2.2, Albumin 3.0, Lactic acid 1.3. 01/27/2025: Patient seen and examined this morning sitting up in bed, alert, and conversing comfortably. No complaints of chest pain, shortness of breath, or abdominal discomfort. Appetite improving, tolerating oral intake. D5W fluids were stopped and morning (ordered fell off), so fluids were restarted as sodium began to rise. Agree with restarting D5W rather than switching to ? NS at this point. BP 155/64, HR 86, WBC 7, Hgb 8.1, Hct 24, Plt 91, Na 145 -> 153 (repeat), K 3.7, Cl 118, CO2 22, BUN 22, Cr 1.5 (improved), Glucose 122, Ca 8.0, Phos 1.8, Mg 2.1, Albumin 2.6. 01/28/2025: Patient seen today sitting up and eating breakfast. No new complaints or issues reported. Noticed increased extremity edema compared to yesterday, likely related to fluid shifts. Given a one-time dose of Aldactone 100 mg to address potential fluid retention. Also administered one-time dose of K-Phos for phosphorus repletion. Labs: WBC 5.4, Hgb 7.7, Hct 23.3, Plt 87, Na 149 -> 144, K 3.7, Cl 114, CO2 22.2, Cr 1.2 (GFR 48), Ca 7.8, Phos 1.6, Albumin 3.1. Exam Vital Signs Temp Pulse Resp BP Pulse Ox O2 Del Method O2 Flow Rate 99.1 F 88 20 148/69 H 95 Room Air 1 01/28/25 07:59 01/28/25 09:39 01/28/25 07:59 01/28/25 09:39 01/28/25 07:59 01/28/25 07:59 01/28/25 05:00 FiO2 30 01/27/25 19:00 Narrative Exam General: Awake, alert, sitting upright in bed, no acute distress. HEENT: PERRL, oral mucosa moist. CVS: S1S2 regular, no murmurs, no JVD. Resp: Clear to auscultation bilaterally. Abdomen: Soft, mild distension, non-tender, bowel sounds present. Extremities: No edema. Neuro: Alert and oriented ?3, moves all extremities. Skin: Warm, dry, incision clean and intact. Objective Labs 01/28/25 04:25 01/28/25 09:00 Labs: Laboratory Results - last 24 hr 01/27/25 01/27/25 01/28/25 14:05 20:27 01:52 WBC RBC Hgb Hct MCV MCH MCHC RDW Std Deviation Plt Count Neut % (Auto) Lymph % (Auto) [place] % (Auto) Eos % (Auto) Baso % (Auto) Neut # (Auto) Lymph # (Auto) [place] # (Auto) Eos # (Auto) Baso # (Auto) Immature Gran # (Auto) Absolute Nucleated RBC Immature Gran % Nucleated RBC % Sodium 149 H 150 H 149 H Potassium Chloride Carbon Dioxide Anion Gap BUN Creatinine Estim Creat Clear Calc eGFR BUN/Creatinine Ratio Glucose Calculated Osmolality Calcium Corrected Calcium Phosphorus Total Bilirubin AST ALT Alkaline Phosphatase Total Protein Albumin Globulin Albumin/Globulin Ratio 01/28/25 01/28/25 04:25 09:00 WBC 5.4 RBC 2.59 L Hgb 7.7 L Hct 23.3 L MCV 90 MCH 29.7 MCHC 33.0 RDW Std Deviation 52.8 H Plt Count 87 L D Neut % (Auto) 66 Lymph % (Auto) 24 [place] % (Auto) 8 Eos % (Auto) 2 Baso % (Auto) 0 Neut # (Auto) 3.6 Lymph # (Auto) 1.3 [place] # (Auto) 0.4 Eos # (Auto) 0.1 Baso # (Auto) 0.0 Immature Gran # (Auto) 0.05 H Absolute Nucleated RBC 0.00 Immature Gran % 1 H Nucleated RBC % 0 Sodium 149 H 144 Potassium 3.7 Chloride 114 H Carbon Dioxide 22.2 Anion Gap 13 BUN 24 H Creatinine 1.2 Estim Creat Clear Calc 35.0 L eGFR 48 L BUN/Creatinine Ratio 20 Glucose 57 L D Calculated Osmolality 298 H Calcium 7.1 L Corrected Calcium 7.8 L Phosphorus 1.6 L Total Bilirubin 0.3 AST 37 H ALT 28 Alkaline Phosphatase 74 Total Protein 4.8 L Albumin 3.1 L D Globulin 1.7 L Albumin/Globulin Ratio 1.8 ABG Interpretation ABG results: 01/23/25 01/24/25 01/24/25 17:13 05:00 18:55 ABG pH 7.09 L* ABG pCO2 60 H ABG pO2 46 L* ABG HCO3 18 L ABG O2 Saturation 77 L ABG Base Excess -11 L VBG pH 7.22 L 7.25 L VBG pCO2 37 39 VBG pO2 137 H 43 D VBG Base Excess -12 L -10 L 01/24/25 20:50 ABG pH 7.24 L D ABG pCO2 44 D ABG pO2 129 H D ABG HCO3 19 L ABG O2 Saturation 100 H ABG Base Excess -8 L VBG pH VBG pCO2 VBG pO2 VBG Base Excess Quality Measures Quality Measures VTE prophylaxis Advance care planning discussed with:: patient Assessment & Plan Assessment Current Active Medications: Generic Name Dose Route Start Last Admin Trade Name Freq PRN Reason Stop Dose Admin Dextrose 25 ml 01/25/25 08:42 Dextrose 50%-Water Inj 50 Ml Syringe IV 02/24/25 08:41 Q15MIN PRN BG 50-70 responsive npo pt Dextrose 50 ml 01/25/25 08:42 Dextrose 50%-Water Inj 50 Ml Syringe IV 02/24/25 08:41 Q15MIN PRN BG <50 OR BG <70 & pt unresponsive Glucagon 1 mg 01/25/25 08:42 Glucagon Inj 1 Mg Vial IM Q15MIN PRN BG <70, and no IV access Heparin Sodium (Porcine) 5,000 unit 01/26/25 21:00 01/28/25 09:40 Heparin Sod Inj 5000 Unit/Ml Vial SC 02/09/25 14:14 5,000 unit Q12HR ELVIA Administration Protocol Hydromorphone HCl 0.5 mg 01/24/25 16:52 01/24/25 20:33 Hydromorphone Inj 2 Mg/Ml Vial IVP 01/29/25 16:43 0.5 mg Q4HR PRN Administration PAIN SCALE 4-10(Mod-Sev Potassium Phosphate 22.5 mmol/ 507.5 mls @ 82.778 mls/hr 01/28/25 07:47 01/28/25 09:39 Sodium Chloride IV 01/28/25 13:54 82.778 mls/hr X1 ONE Administration Dextrose 500 mls @ 125 mls/hr 01/28/25 08:00 01/28/25 10:06 D5w IV 01/28/25 11:59 125 mls/hr .Q4H ELVIA Administration Insulin Degludec 20 unit 01/25/25 09:00 01/28/25 09:40 Insulin Degludec 5 Unit/0.05 Ml (Per 5 Units) SC 02/24/25 08:59 20 unit QDAY ELVIA Administration Insulin Human Lispro 0 unit 01/26/25 17:00 01/28/25 08:20 Insulin Lispro (Admelog) 1 Unit/0.01 Ml Unit SC 02/25/25 16:59 Not Given ACHS ELVIA Protocol Labetalol HCl 10 mg 01/26/25 11:53 Labetalol Inj 5 Mg/Ml Vial 20 Ml IVP 02/25/25 11:52 Q3HR PRN Systolic >180 and HR >75 Ondansetron HCl 4 mg 01/23/25 21:13 01/27/25 09:55 Ondansetron Inj 2 Mg/Ml Inj 2 Ml IVP 02/22/25 21:12 4 mg Q6H PRN Administration NAUSEA OR VOMITING Protocol Pantoprazole Sodium 40 mg 01/25/25 09:00 01/28/25 09:40 Pantoprazole Inj 40 Mg Vial IVP 02/24/25 08:59 40 mg BID ELVIA Administration Plan 74-year-old female with IDDM2, CKD, and CAD, s/p small bowel resection, currently improving post-op with stable renal function, correcting sodium and potassium, and managed for increasing edema with Aldactone and K-Phos. # Acute Kidney Injury on CKD (improving) STEVEN secondary to prerenal insult from prior hypotension, ischemia, and dehydration Good urine output, hemodynamically stable, and tolerating oral intake. Creatinine stable at 1.2, improving renal function, GFR 48. Plan: * Continue monitoring renal function with daily BMP * Adjust medications based on renal status * Continue supportive care and hydration # Hypernatremia (Na 149 -> 144) Sodium improving with correction to 144. Plan: * Decrease D5W to 100 mL/hr to slow down correction and maintain stable sodium * Sodium checks q6h * Goal Na 140 by tomorrow # Hypophosphatemia (Phos 1.6) Likely related to refeeding and postoperative nutritional shifts. Plan: * Replete with IV potassium phosphorus * Repeat level tomorrow # Hypoalbuminemia (Albumin 3.1) Likely secondary to poor intake and acute illness. Plan: * Encourage protein intake as tolerated * Nutritional supplementation per dietitian # Hyperchloremia (Cl 114) Resolving; Secondary to IV fluid administration. Plan: * Continue fluids * Monitor chloride with BMP trend # Metabolic Acidosis (resolved) Previously mixed AGMA from lactic acidosis and renal dysfunction; now resolved with lactate 1.3 and CO2 22.2. Plan: * No bicarbonate therapy indicated # Lactic Acidosis (resolved) Lactate normalized (1.3 from 5.8). Resolution following bowel resection and improved perfusion. Plan: * Continue hemodynamic monitoring and supportive care Other Active Problems: #Ischemic small bowel s/p resection and anastomosis ? post-op care per surgery #Type 2 Diabetes Mellitus #Macrocytic Anemia #Hypertension #CAD #HLD #Pneumonia Management per primary team ----- Plan discussed with attending physician Dr. Maria Fernanda Kaplan MD PGY-1 Internal Medicine Attending Provider Attestation/Addendum Patient currently seen and examined with resident physician Dr. Kaplan. Note reviewed, agree with findings and recommendations. Out of ICU. Blood sugar seems to be better. Sodium is better. Will give him 1 more liter D5 W Replace electrolytes. Plan of care discussed with primary team. Status post ischemic bowel and bowel surgery.
--- NOTE | 2025-01-28 11:15 | PD.SURPROG ---
Documentation for date of: 01/28/25 Subjective Subjective Brief History: 74F with HTN, HLD, DMII (A1c 13), CAD, admitted 01/23 with 3-day history of weakness, poor oral intake and nausea/vomiting, with findings consistent with HHS. Pt was admitted to ICU and then overnight developed worsening abdominal distention, AXR showing stool burden and CT performed today concerning for ischemic small bowel with air droplets in the mesentery and pneumoperitoneum. Pt was started on pressor support, has an increasing lactate Narrative: Pain controlled, having nausea after drinking liquids but no vomiting since yesterday am, passing gas and having BMs without any evidence of GI bleed. Tmax 99.1, WBC remaining normal, Hgb 7.7 Exam Vital Signs Temp Pulse Resp BP Pulse Ox O2 Del Method O2 Flow Rate 99.1 F 88 20 148/69 H 95 Room Air 1 01/28/25 07:59 01/28/25 09:39 01/28/25 07:59 01/28/25 09:39 01/28/25 07:59 01/28/25 07:59 01/28/25 05:00 FiO2 30 01/27/25 19:00 Constitutional Constitutional: no acute distress Routine Respiratory Exam Respiratory: Present no resp distress Routine Abdominal Exam Abdominal: Present soft, distended (mild distention) and wound (upper midline incision c/d/i, no erythema, no fluctuance or tenderness); Absent tenderness Results Results: Laboratory Laboratory results: results reviewed Assessment & Plan Plan 74F with HTN, HLD, DMII (A1c 13), CAD, admitted 01/23 with 3-day history of weakness, poor oral intake and nausea/vomiting, with findings consistent with HHS, course complicated by small bowel ischemia, now s/p emergent ex lap with small bowel resection and anastamosis 01/24, gradually recovering with return of bowel function DM diet, ok to have food from home (avoid fatty or spicy foods) Appreciate PT recs PO pain meds PROCEDURES: Procedures Exploratory laparotomy, small bowel resection and anastomosis, washout
[2025-01-28] MEDS: DEXTROSE 5%-WATER 500 ML 100 ML IV (11:25)
[2025-01-28] MEDS: MULTIVITAMIN 15 ML UDC PO (12:20)
--- NOTE | 2025-01-28 13:40 | ESPR_ITS ---
<Statement entered by Mariya Braun MD - 01/28/25 16:00> The patient was seen and examined, with no acute events overnight. The patient continues to experience nausea and had an episode of vomiting, making it difficult to fully tolerate oral intake. A instrument and electrical technician is involved and will follow up with recommendations. Due to concerns about short gut syndrome, the patient will be advised to consume frequent, small meals rather than three large meals, with an emphasis on increasing calorie intake. The patient will follow the instrument and electrical technician's recommendations for further dietary management. Electrolyte-soler, the patient is stable, with sodium within normal limits. D5W has been discontinued. The patient will also work with physical therapy (PT) and is expected to be discharged to a senior living facility for rehabilitation. For now, continue current management, closely monitor electrolytes, and anticipate discharge within the next 24 hours. I discussed with and supervised the administration intern physician who took care of this patient. I personally saw and examined the patient and discussed the assessment and plan with the entire medicine team, including my attending , I agree with the assessment and plan as documented below Mariya Braun M.D. PGY-3 Disclaimer: Despite multiple revisions, due to the dictation software being used, the document bellow may not be free of grammatical errors including phonetic/typographic errors. However, this does not deter from our commitment to providing health care in the patient's best interest in mind. Documentation for date of: 01/28/25 Subjective Subjective Interval history: The patient was seen and examined; no acute events occurred overnight. The patient continues to experience nausea and had one episode of vomiting, limiting tolerance of oral intake. A instrument and electrical technician is involved and will provide ongoing recommendations. Given concerns for short gut syndrome, the patient is advised to consume small, frequent meals rather than three large meals, with an emphasis on increasing caloric intake. The patient will follow the instrument and electrical technician?s guidance for continued dietary management. Surgery advanced diet today, PO meds, PT to work with patient. Exam Vital Signs Temp Pulse Resp BP Pulse Ox O2 Del Method O2 Flow Rate 98.2 F 113 H 28 H 146/66 H 98 Room Air 1 01/28/25 12:29 01/28/25 12:01/28/25 12:01/28/25 12:01/28/25 12:01/28/25 12:01/28/25 05:00 FiO2 30 01/27/25 19:00 Narrative Exam General: Elderly, frail, awake and alert. Head: Normocephalic, atraumatic. Eyes: Pupils equally round and reactive to light. Anicteric. Blind in left eye. Heart: Regular rate and rhythm, no murmurs. No JVD. Peripheral pulses 2+ and symmetric in all extremities. Lungs: Clear to auscultation bilaterally. Non-labored respirations, symmetric chest rise, no use of accessory muscles. Abdomen: Abdominal binder present. Wound dressing is clear, dry, and intact. Neurologic: No gross neurological deficit, and patient able to move all 4 extremities. Extremities: No clubbing, cyanosis, or edema. Capillary refill <2 seconds. Skin warm to touch, no mottling. Skin: No rashes, lesions, or ulcers. Psychiatric: Cooperative, appropriate mood and affect Objective Labs 01/29/25 04:14 01/29/25 04:14 Labs: Laboratory Results - last 24 hr 01/24/25 01/27/25 01/27/25 09:15 14:05 20:27 WBC RBC Hgb Hct MCV MCH MCHC RDW Std Deviation Plt Count Neut % (Auto) Lymph % (Auto) [place] % (Auto) Eos % (Auto) Baso % (Auto) Neut # (Auto) Lymph # (Auto) [place] # (Auto) Eos # (Auto) Baso # (Auto) Immature Gran # (Auto) Absolute Nucleated RBC Immature Gran % Nucleated RBC % Sodium 149 H 150 H Potassium Chloride Carbon Dioxide Anion Gap BUN Creatinine Estim Creat Clear Calc eGFR BUN/Creatinine Ratio Glucose Calculated Osmolality Calcium Corrected Calcium Phosphorus Total Bilirubin AST ALT Alkaline Phosphatase Total Protein Albumin Globulin Albumin/Globulin Ratio Crossmatch See Detail 01/28/25 01/28/25 01/28/25 01:52 04:25 09:00 WBC 5.4 RBC 2.59 L Hgb 7.7 L Hct 23.3 L MCV 90 MCH 29.7 MCHC 33.0 RDW Std Deviation 52.8 H Plt Count 87 L D Neut % (Auto) 66 Lymph % (Auto) 24 [place] % (Auto) 8 Eos % (Auto) 2 Baso % (Auto) 0 Neut # (Auto) 3.6 Lymph # (Auto) 1.3 [place] # (Auto) 0.4 Eos # (Auto) 0.1 Baso # (Auto) 0.0 Immature Gran # (Auto) 0.05 H Absolute Nucleated RBC 0.00 Immature Gran % 1 H Nucleated RBC % 0 Sodium 149 H 149 H 144 Potassium 3.7 Chloride 114 H Carbon Dioxide 22.2 Anion Gap 13 BUN 24 H Creatinine 1.2 Estim Creat Clear Calc 35.0 L eGFR 48 L BUN/Creatinine Ratio 20 Glucose 57 L D Calculated Osmolality 298 H Calcium 7.1 L Corrected Calcium 7.8 L Phosphorus 1.6 L Total Bilirubin 0.3 AST 37 H ALT 28 Alkaline Phosphatase 74 Total Protein 4.8 L Albumin 3.1 L D Globulin 1.7 L Albumin/Globulin Ratio 1.8 Crossmatch ABG Interpretation ABG results: 01/23/25 01/24/25 01/24/25 17:13 05:00 18:55 ABG pH 7.09 L* ABG pCO2 60 H ABG pO2 46 L* ABG HCO3 18 L ABG O2 Saturation 77 L ABG Base Excess -11 L VBG pH 7.22 L 7.25 L VBG pCO2 37 39 VBG pO2 137 H 43 D VBG Base Excess -12 L -10 L 01/24/25 20:50 ABG pH 7.24 L D ABG pCO2 44 D ABG pO2 129 H D ABG HCO3 19 L ABG O2 Saturation 100 H ABG Base Excess -8 L VBG pH VBG pCO2 VBG pO2 VBG Base Excess Quality Measures Quality Measures VTE prophylaxis Advance care planning discussed with:: patient Assessment & Plan Assessment Current Active Medications: Generic Name Dose Route Start Last Admin Trade Name Freq PRN Reason Stop Dose Admin Acetaminophen 650 mg 01/28/25 11:12 Acetaminophen 325 Mg Tablet PO 02/27/25 11:11 Q6H PRN PAIN SCALE 1-3 (mild Dextrose 25 ml 01/25/25 08:42 Dextrose 50%-Water Inj 50 Ml Syringe IV 02/24/25 08:41 Q15MIN PRN BG 50-70 responsive npo pt Dextrose 50 ml 01/25/25 08:42 Dextrose 50%-Water Inj 50 Ml Syringe IV 02/24/25 08:41 Q15MIN PRN BG <50 OR BG <70 & pt unresponsive Glucagon 1 mg 01/25/25 08:42 Glucagon Inj 1 Mg Vial IM Q15MIN PRN BG <70, and no IV access Heparin Sodium (Porcine) 5,000 unit 01/26/25 21:00 01/28/25 09:40 Heparin Sod Inj 5000 Unit/Ml Vial SC 02/09/25 14:14 5,000 unit Q12HR ELVIA Administration Protocol Potassium Phosphate 22.5 mmol/ 507.5 mls @ 82.778 mls/hr 01/28/25 07:47 01/28/25 09:39 Sodium Chloride IV 01/28/25 13:54 82.778 mls/hr X1 ONE Administration Dextrose 500 mls @ 100 mls/hr 01/28/25 11:08 01/28/25 11:25 D5w IV 01/28/25 16:07 100 mls/hr .Q5H ELVIA Administration Insulin Degludec 20 unit 01/25/25 09:00 01/28/25 09:40 Insulin Degludec 5 Unit/0.05 Ml (Per 5 Units) SC 02/24/25 08:59 20 unit QDAY ELVIA Administration Insulin Human Lispro 0 unit 01/26/25 17:00 01/28/25 12:17 Insulin Lispro (Admelog) 1 Unit/0.01 Ml Unit SC 02/25/25 16:59 Not Given ACHS ELVIA Protocol Labetalol HCl 10 mg 01/26/25 11:53 Labetalol Inj 5 Mg/Ml Vial 20 Ml IVP 02/25/25 11:52 Q3HR PRN Systolic >180 and HR >75 Multivitamins/Minerals 15 ml 01/28/25 11:15 01/28/25 12:20 Multivitamin 15 Ml Udc PO 02/27/25 11:14 15 ml QDAY ELVIA Administration Ondansetron HCl 4 mg 01/28/25 11:12 Ondansetron Odt 4 Mg Tabrap PO 02/27/25 11:11 Q8HR PRN NAUSEA OR VOMITING Protocol Oxycodone/Acetaminophen 1 tab 01/28/25 11:12 Oxycodone/Apap 5/325 Tablet PO 02/02/25 11:11 Q6HR PRN PAIN SCALE 4-10(Mod-Sev Pantoprazole Sodium 40 mg 01/25/25 09:00 01/28/25 09:40 Pantoprazole Inj 40 Mg Vial IVP 02/24/25 08:59 40 mg BID ELVIA Administration Plan 74-year-old female with medical history significant for insulin-dependent type 2 diabetes, hypertension, hyperlipidemia, and coronary artery disease presenting with hyperosmolar hyperglycemic state (glucose ~1500, Na 170, osmolality 369) complicated by small bowel ischemia requiring emergent exploratory laparotomy for small bowel resection and anastomosis. Patient downgraded from ICU to medical floor on 01/26 for mgx for ongoing issues. Small Bowel Ischemia (Post-op Day 4) The patient is status post exploratory laparotomy with small bowel resection and anastomosis. Post-operative course has been stable thus far. Perioperative Findings: A large portion of ischemic jejunum and ileum was resected 280cm. The remaining jejunum and ileum were successfully anastomosed. The patient was extubated in the operating room and transferred back to the ICU. Bowel Function: The patient had their first bowel movement shortly after returning to the ICU; the stool was brown, non-bloody, and formed, as reported by nursing staff. Plan: - Hydromorphone 0.5 mg IV every 4 hours as needed for post-operative pain. - Zofran 4 mg IV every 6 hours as needed for nausea. - Zosyn STOPPED (01/25?01/27) - no praveena perforation per surgery - Scraper Burrer following, see recs - The patient has multiple risk factors for peripheral artery disease, including coronary artery disease and diabetes. Once clinically stable and post-surgery recovery progresses, an outpatient follow-up with vascular surgery will be necessary for further evaluation, including a CTA to assess for peripheral artery disease. #Acute kidney injury on chronic kidney disease, improving Pre-renal from dehydration Admission labs: BUN 85, creatinine 3.4 (baseline 1.1?1.3), eGFR 12. Plan: - Strict I&Os. - Daily renal panel to trend BUN, Cr, and electrolytes. - Avoid nephrotoxins - Renally dose meds as appropriate. - Nephrology is following. #Insulin-dependent type 2 diabetes Hemoglobin A1c: 13.7. HHS resolved, no longer on insulin drip. Plan: - Lantus 20 units with ISS. - Will require need insulin regimen upon D/C #Hyperosmolar hypernatremia, resolved #Hyperchloremia 2/2 to poor PO intake 01/28 Na 143 - Stopped IVF #History of coronary artery disease - Currently stable, no intervention required at this time. - Will continue home meds when stable. #Primary hypertension - Will continue home meds when stable. #Normocytic Anemia #Acute blood loss Transfused 1 unit of pRBCs on 01/15. Plan: - Monitor CBC - Transfuse if Hgb < 8. #Hypercalcemia, resolved #Hyperosmolar hyperglycemic state (resolved) #Shock, likely distributive due to small bowel ischemia (resolved) #Sinus tachycardia (resolved) #Anion gap metabolic acidosis (resolved) #Lactic acidosis (resolved) Health Maintenance: Disposition: Tele DVT prophylaxis: Heparin 5000 subQ. GI prophylaxis: Pantoprazole 40mg IV BID. Diet: clear fluids CODE STATUS: FULL CODE Case discussed with my attending Dr. Murry, and senior resident, Dr. Aparna Ramirez MD PGY-1 Attending Provider Attestation/Addendum I have examined the patient, reviewed labs and imaging findings, discussed the case with the resident(s), and reviewed entered orders. I agree with the plan of care as outlined in this note, with these additional summaries/recommendations: Patient and patient's daughter seen at bedside. No acute overnight events. Patient still endorsing nausea and still attempting to advance diet. She endorses passing gas and had bowel movement. Patient is postoperative day #5 status post ex lap and small bowel resection for small bowel ischemia. Continue pain management. Will continue to attempt diet as tolerated. General surgery following. Hemoglobin stable today. Patient encouraged to increase her free water intake. Patient has hyperosmolar hypernatremia secondary to dehydration. On D5W and nephrology following. Hypophosphatemia and hypocalcemia present. Replacement given and follow-up repeat levels. Patient has uncontrolled diabetes mellitus type 2 with A1c 13.7%. Diabetic education. Target blood sugar of 140-180 while hospitalized. Patient encouraged to work with physical therapy. Patient has STEVEN on CKD. Avoid nephrotoxic agents and renally dose medications. Patient updated on the plan and in agreement. All questions answered to satisfaction. Please see residents note for additional details and management. Dr. Lovely MD
[2025-01-28 14:18] LABS: Sodium 143 mMol/L (136-145)
--- NOTE | 2025-01-28 14:40 | PC.SS ---
Rounding Note: Plan is to advance patient's diet. PT evaluation is pending. Dietary recommendations are pending.
[2025-01-28] MEDS: ONDANSETRON ODT 4 MG TABRAP PO (14:52)
--- NOTE | 2025-01-28 15:53 | PC.SS ---
DRUG COUNSELOR conducted bedside contact with the patient. Patient confirmed plan is to advance diet. Patient stated that sap business analyst met with patient and provided recommendations. Patient's daughter at bedside. Patient confirmed participating with physical therapy. Bitumen Plant Operator utilized to assist with discussion.
--- NOTE | 2025-01-28 16:20 | PC.DIETICIAN ---
Nutrition recommendations Consistent Carb, 6-Small Meals, Dys Mech Altered (advance per pt?s tolerance). Glucerna Shake 240ml BID between meals (vankim). Consider: - Liquid multivitamins/minerals qd - IV thiamine 100mg/day - Folate 1mg daily if not in MVI qd - Vitamin B12- 500-1000mcg daily qd (pending labs) - Vitamin D3 3000-6000IU daily liquid or crushed tablet (pending labs)
[2025-01-28] MEDS: VITAMIN B COMPLEX TABLET 1 TAB PO (17:34)
[2025-01-28] MEDS: CHOLECALCIFEROL (Vitamin D3) 1,000 IU TABLET 6000 IU PO (17:35)
[2025-01-28] MEDS: THIAMINE 100 MG TABLET PO (17:35)
[2025-01-28] MEDS: FOLIC ACID 1 MG TABLET PO (17:35)
--- NOTE | 2025-01-28 19:46 | PD.IMPROG ---
Documentation for date of: 01/28/25 Subjective Subjective Interval history: Hemoglobin hematocrit 7.7 and 23.3 tolerating diet Exam Vital Signs Temp Pulse Resp BP Pulse Ox O2 Del Method O2 Flow Rate 98.9 F 85 21 H 159/75 H 99 Room Air 1 01/28/25 17:00 01/28/25 17:00 01/28/25 17:00 01/28/25 17:00 01/28/25 17:00 01/28/25 17:00 01/28/25 05:00 FiO2 30 01/27/25 19:00 Objective Labs 01/28/25 04:25 01/28/25 13:50 Labs: Laboratory Results - last 24 hr 01/24/25 01/27/25 01/28/25 09:15 20:27 01:52 WBC RBC Hgb Hct MCV MCH MCHC RDW Std Deviation Plt Count Neut % (Auto) Lymph % (Auto) [place] % (Auto) Eos % (Auto) Baso % (Auto) Neut # (Auto) Lymph # (Auto) [place] # (Auto) Eos # (Auto) Baso # (Auto) Immature Gran # (Auto) Absolute Nucleated RBC Immature Gran % Nucleated RBC % Sodium 150 H 149 H Potassium Chloride Carbon Dioxide Anion Gap BUN Creatinine Estim Creat Clear Calc eGFR BUN/Creatinine Ratio Glucose Calculated Osmolality Calcium Corrected Calcium Phosphorus Total Bilirubin AST ALT Alkaline Phosphatase Total Protein Albumin Globulin Albumin/Globulin Ratio Crossmatch See Detail 01/28/25 01/28/25 01/28/25 04:25 09:00 13:50 WBC 5.4 RBC 2.59 L Hgb 7.7 L Hct 23.3 L MCV 90 MCH 29.7 MCHC 33.0 RDW Std Deviation 52.8 H Plt Count 87 L D Neut % (Auto) 66 Lymph % (Auto) 24 [place] % (Auto) 8 Eos % (Auto) 2 Baso % (Auto) 0 Neut # (Auto) 3.6 Lymph # (Auto) 1.3 [place] # (Auto) 0.4 Eos # (Auto) 0.1 Baso # (Auto) 0.0 Immature Gran # (Auto) 0.05 H Absolute Nucleated RBC 0.00 Immature Gran % 1 H Nucleated RBC % 0 Sodium 149 H 144 143 Potassium 3.7 Chloride 114 H Carbon Dioxide 22.2 Anion Gap 13 BUN 24 H Creatinine 1.2 Estim Creat Clear Calc 35.0 L eGFR 48 L BUN/Creatinine Ratio 20 Glucose 57 L D Calculated Osmolality 298 H Calcium 7.1 L Corrected Calcium 7.8 L Phosphorus 1.6 L Total Bilirubin 0.3 AST 37 H ALT 28 Alkaline Phosphatase 74 Total Protein 4.8 L Albumin 3.1 L D Globulin 1.7 L Albumin/Globulin Ratio 1.8 Crossmatch Impressions Impression: Ischemic bowel disease s/p resection of the small bowel and primary anastomosis Continue current management ABG Interpretation ABG results: 01/23/25 01/24/25 01/24/25 17:13 05:00 18:55 ABG pH 7.09 L* ABG pCO2 60 H ABG pO2 46 L* ABG HCO3 18 L ABG O2 Saturation 77 L ABG Base Excess -11 L VBG pH 7.22 L 7.25 L VBG pCO2 37 39 VBG pO2 137 H 43 D VBG Base Excess -12 L -10 L 01/24/25 20:50 ABG pH 7.24 L D ABG pCO2 44 D ABG pO2 129 H D ABG HCO3 19 L ABG O2 Saturation 100 H ABG Base Excess -8 L VBG pH VBG pCO2 VBG pO2 VBG Base Excess Assessment & Plan Time Spent With Patient Time: Total time spent is greater than 50% in coordination of care (as documented) at patient's floor/unit and/or counseling patient:
[2025-01-29] VITALS (18 sets, daily range): BP systolic 153–167; BP diastolic 66–98; PULSE 81–97; RESP 13–21; TEMP 36.6–38; O2SAT 93–99
[2025-01-29] MEDS: ACETAMINOPHEN 325 MG TABLET 650 MG PO ×2 (00:46→20:23)
[2025-01-29 05:27] LABS: Basophils # (Auto) 0.0 Thou/mm3 (0.0-0.2); Basophils % (Auto) 0 % (0-2.5); Eosinophils # (Auto) 0.1 Thou/mm3 (0.0-0.5); Eosinophils % (Auto) 1 % (0-10); Hematocrit 23.6 % (36.0-46.0); Immature Granulocytes Auto 0.11 Thou/mm3 (0.00-0.00); Lymphocytes # (Auto) 1.2 Thou/mm3 (1.0-4.8); Lymphocytes % (Auto) 25 % (10-50); Mean Corpuscular HGB Conc 33.1 g/dl (31.0-37.0); Mean Corpuscular Hemoglobin 29.7 pg (25.0-35.0); Mean Corpuscular Volume 90 fL (80-100); Monocytes # (Auto) 0.6 Thou/mm3 (0.0-0.8); Monocytes % (Auto) 13 % (0-12); Neutrophils # (Auto) 2.7 Thou/mm3 (1.8-7.7); Neutrophils % (Auto) 58 % (37-80); Nucleated Red Blood Cell # 0.02 Thou/mm3 (0.00-0.00); Nucleated Red Blood Cell % 0 /100 WBC (0); RDW Standard Deviation 51.0 fL (36.4-46.3); Red Blood Count 2.63 Miln/mm3 (4.00-5.20); White Blood Count 4.6 Thou/mm3 (3.6-11.0)
[2025-01-29 05:33] LABS: Hemoglobin 7.8 g/dL (12.0-16.0)
[2025-01-29 06:07] LABS: Alanine Aminotransferase 27 U/L (10-49); Albumin, Serum 3.1 gm/dL (3.4-4.8); Albumin/Globulin Ratio 1.8 (1.2-2.2); Alkaline Phosphatase 78 U/L (46-116); Anion Gap 12 (7-16); Aspartate Amino Transferase 36 U/L (0-34); BUN/Creatinine Ratio 15 Ratio (12-20); Bilirubin,Total 0.3 mg/dL (0.3-1.2); Blood Urea Nitrogen 16 mg/dL (9-23); Calcium 7.0 mg/dL (8.3-10.6); Calcium (Corrected) 7.7 mg/dL (8.5-10.1); Carbon Dioxide 20.8 mMol/L (20.0-31.0); Chloride 113 mMol/L (98-107); Creatinine (Component) 1.1 mg/dL (0.6-1.3); Estimated Creatinine Clearance 37.7 mL/min (>60); Globulin 1.7 gm/dL (2.3-3.5); Glucose 51 mg/dL (74-106); Osmolality,Calculated 288 (275-295); Potassium 4.0 mMol/L (3.4-5.1); Sodium 146 mMol/L (136-145); Total Protein 4.8 gm/dL (5.7-8.2); eGFR 53 See Note
[2025-01-29 06:31] LABS: Platelet Count 114 Thou/mm3 (140-440)
[2025-01-29 06:34] LABS: Phosphorous 2.5 mg/dL (2.4-5.1)
[2025-01-29] MEDS: DEXTROSE 50%-WATER INJ 50 ML SYRINGE IV (08:11)
[2025-01-29] MEDS: CHOLECALCIFEROL (Vitamin D3) 1,000 IU TABLET 6000 IU PO (08:26)
[2025-01-29] MEDS: FOLIC ACID 1 MG TABLET PO (08:26)
[2025-01-29] MEDS: MULTIVITAMIN 15 ML UDC PO (08:27)
[2025-01-29] MEDS: HEPARIN SOD INJ 5000 UNIT/ML VIAL SC ×2 (08:28→20:24)
--- NOTE | 2025-01-29 08:28 | PC.SS ---
PRODUCTION WOOD CRAFTSMAN submitted request to bedside nurse to conduct room air evaluation on behalf of the patient to determine need for home oxygen.
[2025-01-29] MEDS: THIAMINE 100 MG TABLET PO (08:32)
[2025-01-29] MEDS: SPIRONOLACTONE 25 MG TABLET 100 MG PO (09:04)
[2025-01-29] MEDS: DEXTROSE 5%-WATER 1,000 ML 100 ML IV (09:05)
--- NOTE | 2025-01-29 10:03 | ESPR_ITS ---
Documentation for date of: 01/29/25 Subjective Subjective Interval history: Reason for consult: Acute Kidney Injury in the setting of HHS and ischemic bowel History of present illness: 74-year-old Bengali-speaking female with a past medical history of insulin- dependent type 2 diabetes mellitus, CKD (baseline Cr ~1.1?1.3), hypertension, hyperlipidemia, and CAD, admitted on 01/23/25 for HHS/DKA overlap following 3 days of nausea, vomiting, poor oral intake, and progressive weakness. She was initially found to have severe hyperglycemia (BG >1500), corrected sodium 171, and STEVEN with Cr 3.4 on admission. During hospitalization, she developed worsening abdominal distension and rising lactate (2.9 -> 5.8). CT abdomen revealed extensive small bowel ischemia with pneumoperitoneum and mesenteric air. She underwent emergent exploratory laparotomy today with resection of approximately 280 cm of ischemic jejunum and ileum, leaving 18 cm of proximal jejunum and 101 cm of terminal ileum, followed by primary anastomosis. Nephrology consulted for STEVEN management, fluid and electrolyte optimization, and assessment of renal replacement needs. 01/24/2025: This morning, patient was seen in the ICU prior to surgery. She appeared lethargic but arousable, reported ongoing nausea and abdominal discomfort. No bowel movement since last 5 days and no gas passed since the last . Daughter at bedside noted patient had increasing abdominal distension overnight and appeared weaker. Patient denied chest pain or shortness of breath. Brunson in place with minimal urine output noted. Patient was scheduled for exploratory laparotomy following CT findings consistent with pneumoperitoneum and ischemic small bowel with mesenteric air. After surgery, patient was transferred back to the ICU. She was extubated in the operating room and is now awake but tired, able to respond to questions appropriately. On low dose pressors. Denies chest pain, shortness of breath, or worsening abdominal pain. Brunson catheter remains in place, urine output being monitored. Family at bedside, supportive. Labs: WBC 6.9, Hgb 9.1, Hct 27.9, Plt 151, Na 151 (corrected 156), K 4.4, Cl 116, CO2 17.7, AG 17, BUN 68, Cr 2.6 (from 3.0 yesterday, baseline 1.1?1.3), GFR 19, Glucose 320 (prior 970 -> 487 -> 320), Ca 8.9, Phos 4.1, Mg 2.4, Albumin 3.0, Lactic acid 4.9 ( from 5.8), VBG pH 7.25 / pCO2 39, Lipase 132. 01/26/2025: Patient seen and examined today after being downgraded from ICU to primary team. She was sitting up in the chair, eating, and conversing with family. Reports feeling better overall. Denies chest pain, shortness of breath, abdominal pain, or dizziness. No new complaints. Labs: WBC 7, Hgb 8.1, Hct 24, Plt 91, Na 158 (up from 157 and 153 yesterday), Cl 122, CO2 23.5, Cr 1.8 (improving), Ca 8.2, Phos 2.4, Mg 2.2, Albumin 3.0, Lactic acid 1.3. 01/27/2025: Patient seen and examined this morning sitting up in bed, alert, and conversing comfortably. No complaints of chest pain, shortness of breath, or abdominal discomfort. Appetite improving, tolerating oral intake. D5W fluids were stopped and morning (ordered fell off), so fluids were restarted as sodium began to rise. Agree with restarting D5W rather than switching to ? NS at this point. BP 155/64, HR 86, WBC 7, Hgb 8.1, Hct 24, Plt 91, Na 145 -> 153 (repeat), K 3.7, Cl 118, CO2 22, BUN 22, Cr 1.5 (improved), Glucose 122, Ca 8.0, Phos 1.8, Mg 2.1, Albumin 2.6. 01/28/2025: Patient seen today sitting up and eating breakfast. No new complaints or issues reported. Noticed increased extremity edema compared to yesterday, likely related to fluid shifts. Given a one-time dose of Aldactone 100 mg to address potential fluid retention. Also administered one-time dose of K-Phos for phosphorus repletion. Labs: WBC 5.4, Hgb 7.7, Hct 23.3, Plt 87, Na 149 -> 144, K 3.7, Cl 114, CO2 22.2, Cr 1.2 (GFR 48), Ca 7.8, Phos 1.6, Albumin 3.1. 01/29/2025: Patient seen today no acute complaints. No overnight events. Extremity edema is a tad better than yesterday. Will give another one-time dose of Aldactone 100 mg to address the potential fluid retention. Patient made 300 cc overnight of urine output. Also continuing another bag of D5W at 100 mL/h. Labs: WBC 4.6, Hgb 7.8, Hct 23, Plt 114, Na 146, K4, CL 113, CO2 20.8, BUN 16, creatinine 1.1, glucose 96, calcium 7.7, phosphorus 2.5. Nephrology will sign off on this patient. Exam Vital Signs Temp Pulse Resp BP Pulse Ox O2 Del Method O2 Flow Rate 98.0 F 82 16 159/69 H 97 Nasal Cannula 1 01/29/25 08:46 01/29/25 09:04 01/29/25 08:46 01/29/25 09:04 01/29/25 08:46 01/29/25 08:46 01/29/25 08:46 FiO2 30 01/27/25 19:00 Narrative Exam General: Awake, alert, sitting upright in bed, no acute distress. HEENT: PERRL, oral mucosa moist. CVS: S1S2 regular, no murmurs, no JVD. Resp: Clear to auscultation bilaterally. Abdomen: Soft, mild distension, non-tender, bowel sounds present. Extremities: No edema. Neuro: Alert and oriented ?3, moves all extremities. Skin: Warm, dry, incision clean and intact. Objective Labs 01/30/25 05:04 01/29/25 04:14 Labs: Laboratory Results - last 24 hr 01/24/25 01/28/25 01/29/25 09:15 13:50 04:14 WBC 4.6 RBC 2.63 L Hgb 7.8 L Hct 23.6 L MCV 90 MCH 29.7 MCHC 33.1 RDW Std Deviation 51.0 H Plt Count 114 L D Neut % (Auto) 58 Lymph % (Auto) 25 [place] % (Auto) 13 H Eos % (Auto) 1 Baso % (Auto) 0 Neut # (Auto) 2.7 Lymph # (Auto) 1.2 [place] # (Auto) 0.6 Eos # (Auto) 0.1 Baso # (Auto) 0.0 Immature Gran # (Auto) 0.11 H Absolute Nucleated RBC 0.02 H Immature Gran % 2 H Nucleated RBC % 0 Sodium 143 146 H Potassium 4.0 Chloride 113 H Carbon Dioxide 20.8 Anion Gap 12 BUN 16 Creatinine 1.1 Estim Creat Clear Calc 37.7 L eGFR 53 L BUN/Creatinine Ratio 15 Glucose 51 L Calculated Osmolality 288 Calcium 7.0 L Corrected Calcium 7.7 L Phosphorus 2.5 Total Bilirubin 0.3 AST 36 H ALT 27 Alkaline Phosphatase 78 Total Protein 4.8 L Albumin 3.1 L Globulin 1.7 L Albumin/Globulin Ratio 1.8 Crossmatch See Detail ABG Interpretation ABG results: 01/23/25 01/24/25 01/24/25 17:13 05:00 18:55 ABG pH 7.09 L* ABG pCO2 60 H ABG pO2 46 L* ABG HCO3 18 L ABG O2 Saturation 77 L ABG Base Excess -11 L VBG pH 7.22 L 7.25 L VBG pCO2 37 39 VBG pO2 137 H 43 D VBG Base Excess -12 L -10 L 01/24/25 20:50 ABG pH 7.24 L D ABG pCO2 44 D ABG pO2 129 H D ABG HCO3 19 L ABG O2 Saturation 100 H ABG Base Excess -8 L VBG pH VBG pCO2 VBG pO2 VBG Base Excess Quality Measures Quality Measures VTE prophylaxis Advance care planning discussed with:: patient Assessment & Plan Assessment Current Active Medications: Generic Name Dose Route Start Last Admin Trade Name Sydq PRN Reason Stop Dose Admin Acetaminophen 650 mg 01/28/25 11:12 01/29/25 00:46 Acetaminophen 325 Mg Tablet PO 02/27/25 11:11 650 mg Q6H PRN Administration PAIN SCALE 1-3 (mild Dextrose 25 ml 01/25/25 08:42 Dextrose 50%-Water Inj 50 Ml Syringe IV 02/24/25 08:41 Q15MIN PRN BG 50-70 responsive npo pt Dextrose 50 ml 01/25/25 08:42 01/29/25 08:11 Dextrose 50%-Water Inj 50 Ml Syringe IV 02/24/25 08:41 50 ml Q15MIN PRN Administration BG <50 OR BG <70 & pt unresponsive Folic Acid 1 mg 01/28/25 16:30 01/29/25 08:26 Folic Acid 1 Mg Tablet PO 02/27/25 16:29 1 mg QDAY ELVIA Administration Glucagon 1 mg 01/25/25 08:42 Glucagon Inj 1 Mg Vial IM Q15MIN PRN BG <70, and no IV access Heparin Sodium (Porcine) 5,000 unit 01/26/25 21:00 01/29/25 08:28 Heparin Sod Inj 5000 Unit/Ml Vial SC 02/09/25 14:14 5,000 unit Q12HR ELVIA Administration Protocol Dextrose 1,000 mls @ 100 mls/hr 01/29/25 08:30 01/29/25 09:05 D5w IV 01/29/25 18:29 100 mls/hr .Q10H ELVIA Administration Insulin Degludec 20 unit 01/25/25 09:00 01/29/25 08:28 Insulin Degludec 5 Unit/0.05 Ml (Per 5 Units) SC 02/24/25 08:59 Not Given QDAY ELVIA Insulin Human Lispro 0 unit 01/26/25 17:00 01/29/25 08:27 Insulin Lispro (Admelog) 1 Unit/0.01 Ml Unit SC 02/25/25 16:59 Not Given ACHS [facility] Protocol Labetalol HCl 10 mg 01/26/25 11:53 Labetalol Inj 5 Mg/Ml Vial 20 Ml IVP 02/25/25 11:52 Q3HR PRN Systolic >180 and HR >75 Multivitamins/Minerals 15 ml 01/28/25 11:15 01/29/25 08:27 Multivitamin 15 Ml Udc PO 02/27/25 11:14 15 ml QDAY ELVIA Administration Ondansetron HCl 4 mg 01/28/25 11:12 01/28/25 14:52 Ondansetron Odt 4 Mg Tabrap PO 02/27/25 11:11 4 mg Q8HR PRN Administration NAUSEA OR VOMITING Protocol Oxycodone/Acetaminophen 1 tab 01/28/25 11:12 Oxycodone/Apap 5/325 Tablet PO 02/02/25 11:11 Q6HR PRN PAIN SCALE 4-10(Mod-Sev Pantoprazole Sodium 40 mg 01/25/25 09:00 01/29/25 08:28 Pantoprazole Inj 40 Mg Vial IVP 02/24/25 08:59 40 mg BID ELVIA Administration Thiamine HCl 100 mg 01/28/25 16:30 01/29/25 08:32 Thiamine 100 Mg Tablet PO 02/27/25 16:29 100 mg QDAY ELVIA Administration Vitamin B Complex/Vit C/Folic Acid 1 tab 01/28/25 16:30 01/28/25 17:34 Vitamin B Complex Tablet PO 02/27/25 16:29 1 tab QDAY ELVIA Administration Vitamin D 6,000 iu 01/28/25 16:30 01/29/25 08:26 Cholecalciferol (Vitamin D3) 1,000 Iu Tablet PO 02/27/25 16:29 6,000 iu QDAY ELVIA Administration Plan 74-year-old female with IDDM2, CKD, and CAD, s/p small bowel resection, currently improving post-op with stable renal function, correcting sodium and potassium, and managed for increasing edema with Aldactone and K-Phos. # Acute Kidney Injury on CKD (improving) STEVEN secondary to prerenal insult from prior hypotension, ischemia, and dehydration Good urine output, hemodynamically stable, and tolerating oral intake. Creatinine stable at 1.1, improving renal function, GFR 53. Plan: * Continue monitoring renal function with daily BMP * Adjust medications based on renal status * Continue supportive care and hydration * Nephrology will sign off on this patient. * Please reconsult for any more questions. # Hypernatremia (Na 149 -> 146) Sodium improving with correction to 146. Plan: * Continue D5W to 100 mL/hr to slow down correction and maintain stable sodium * Sodium checks q6h * Goal Na 140 * Encourage patient to increase water intake # Hypophosphatemia (Phos 2.1) Likely related to refeeding and postoperative nutritional shifts. Plan: * Replete with IV potassium phosphorus * Repeat level tomorrow # Hypoalbuminemia (Albumin 3.1) Likely secondary to poor intake and acute illness. Plan: * Encourage protein intake as tolerated * Nutritional supplementation per dietitian # Hyperchloremia (Cl 113) Resolving; Secondary to IV fluid administration. Plan: * Continue fluids * Monitor chloride with BMP trend # Metabolic Acidosis (resolved) Previously mixed AGMA from lactic acidosis and renal dysfunction; now resolved with lactate 1.3 and CO2 22.2. Plan: * No bicarbonate therapy indicated # Lactic Acidosis (resolved) Lactate normalized (1.3 from 5.8). Resolution following bowel resection and improved perfusion. Plan: * Continue hemodynamic monitoring and supportive care Other Active Problems: #Ischemic small bowel s/p resection and anastomosis ? post-op care per surgery #Type 2 Diabetes Mellitus #Macrocytic Anemia #Hypertension #CAD #HLD #Pneumonia Management per primary team ----- Plan discussed with attending physician Dr. Maria Fernanda Kaplan MD PGY-1 Internal Medicine Attending Provider Attestation/Addendum Patient seen and examined with resident physician Dr. Kaplan. Note reviewed, agree with findings and recommendations. Patient currently seen in telemetry. Tolerating p.o. Renal will sign off. Thank you for the consult.
--- NOTE | 2025-01-29 10:06 | PC.SS ---
Addendum entered by Abbi Talamantes 01/29/25 12:11: SS spoke to Diana Flores from [facility] who explained they will accept pt but have to verify her health insurance. Addendum entered by Abbi Talamantes 01/29/25 11:10: SS met with pt and dtrYany regarding SNF options. SS provided verbal options for SNF placement and provided them with the Community Resource List. Daughter's choice is [facility]. SS has sent inquiry to the local SNF using [facility] care. Original Note: SS met with pt and spoke to dtrSkye about patient's d/c plan to home or SNF. Pt and dtr are now requesting SNF placement for short term rehab.
--- NOTE | 2025-01-29 10:23 | PC.SS ---
PASRR assessment completed.
--- NOTE | 2025-01-29 10:27 | ESPR_ITS ---
<Statement entered by Mariya Braun MD - 01/29/25 18:47> Patient seen and examined at bedside. No acute overnight events. Patient still not tolerating p.o. intake, having multiple bowel movement, nausea, vomiting. Overnight patient had spiked a fever, surgery was contacted, recommended CT abdomen pelvis with contrast to rule out any abscess or any complication. Will continue close monitor vitals, daily labs was ordered. Dietitian is following the case, patient started TPN, multivitamin. Reglan as needed I discussed with and supervised the cad intern physician who took care of this patient. I personally saw and examined the patient and discussed the assessment and plan with the entire medicine team, including my attending , I agree with the assessment and plan as documented below Mariya Braun M.D. PGY-3 Disclaimer: Despite multiple revisions, due to the dictation software being used, the document bellow may not be free of grammatical errors including phonetic/typographic errors. However, this does not deter from our commitment to providing health care in the patient's best interest in mind. Documentation for date of: 01/29/25 Subjective Subjective Interval history: The patient was seen and examined, and no acute events occurred overnight. She continues to experience nausea following oral intake, with one episode of vomiting at 11:30 AM after a meal, and reports anorexia. The patient also feels mildly bloated with slight abdominal distention but denies any acute pain or discomfort. The dressing from her small bowel resection and anastomosis on 01/24 was changed around 2:30 PM. Due to a fever overnight, a CT of the abdomen and pelvis was ordered. The CT showed abundant stool in the colon, no bowel obstruction, mild free fluid in the lower right and left abdomen, and no evidence of abdominal or pelvic absces Exam Vital Signs Temp Pulse Resp BP Pulse Ox O2 Del Method O2 Flow Rate 98.0 F 82 16 159/69 H 97 Nasal Cannula 1 01/29/25 08:46 01/29/25 09:04 01/29/25 08:46 01/29/25 09:04 01/29/25 08:46 01/29/25 08:46 01/29/25 08:46 FiO2 30 01/27/25 19:00 Narrative Exam General: Elderly, frail, awake and alert. Head: Normocephalic, atraumatic. Eyes: Pupils equally round and reactive to light. Anicteric. Blind in left eye. Heart: Regular rate and rhythm, no murmurs. No JVD. Peripheral pulses 2+ and symmetric in all extremities. Lungs: Clear to auscultation bilaterally. Non-labored respirations, symmetric chest rise, no use of accessory muscles. Abdomen: Abdominal binder present. Wound dressing is clear, dry, and intact. Neurologic: No gross neurological deficit, and patient able to move all 4 extremities. Extremities: No clubbing, cyanosis, or edema. Capillary refill <2 seconds. Skin warm to touch, no mottling. Skin: No rashes, lesions, or ulcers. Psychiatric: Cooperative, appropriate mood and affect Objective Labs 01/30/25 05:04 01/30/25 05:04 Labs: Laboratory Results - last 24 hr 01/24/25 01/28/25 01/29/25 09:15 13:50 04:14 WBC 4.6 RBC 2.63 L Hgb 7.8 L Hct 23.6 L MCV 90 MCH 29.7 MCHC 33.1 RDW Std Deviation 51.0 H Plt Count 114 L D Neut % (Auto) 58 Lymph % (Auto) 25 [place] % (Auto) 13 H Eos % (Auto) 1 Baso % (Auto) 0 Neut # (Auto) 2.7 Lymph # (Auto) 1.2 [place] # (Auto) 0.6 Eos # (Auto) 0.1 Baso # (Auto) 0.0 Immature Gran # (Auto) 0.11 H Absolute Nucleated RBC 0.02 H Immature Gran % 2 H Nucleated RBC % 0 Sodium 143 146 H Potassium 4.0 Chloride 113 H Carbon Dioxide 20.8 Anion Gap 12 BUN 16 Creatinine 1.1 Estim Creat Clear Calc 37.7 L eGFR 53 L BUN/Creatinine Ratio 15 Glucose 51 L Calculated Osmolality 288 Calcium 7.0 L Corrected Calcium 7.7 L Phosphorus 2.5 Total Bilirubin 0.3 AST 36 H ALT 27 Alkaline Phosphatase 78 Total Protein 4.8 L Albumin 3.1 L Globulin 1.7 L Albumin/Globulin Ratio 1.8 Crossmatch See Detail ABG Interpretation ABG results: 01/23/25 01/24/25 01/24/25 17:13 05:00 18:55 ABG pH 7.09 L* ABG pCO2 60 H ABG pO2 46 L* ABG HCO3 18 L ABG O2 Saturation 77 L ABG Base Excess -11 L VBG pH 7.22 L 7.25 L VBG pCO2 37 39 VBG pO2 137 H 43 D VBG Base Excess -12 L -10 L 01/24/25 20:50 ABG pH 7.24 L D ABG pCO2 44 D ABG pO2 129 H D ABG HCO3 19 L ABG O2 Saturation 100 H ABG Base Excess -8 L VBG pH VBG pCO2 VBG pO2 VBG Base Excess Quality Measures Quality Measures VTE prophylaxis Advance care planning discussed with:: patient Assessment & Plan Assessment Current Active Medications: Generic Name Dose Route Start Last Admin Trade Name Freq PRN Reason Stop Dose Admin Acetaminophen 650 mg 01/28/25 11:12 01/29/25 00:46 Acetaminophen 325 Mg Tablet PO 02/27/25 11:11 650 mg Q6H PRN Administration PAIN SCALE 1-3 (mild Calcium Gluconate 1 gm 01/29/25 10:26 Calcium Gluconate 10% Inj 1 Gm/10 Ml Vial IV 01/29/25 10:27 X1 ONE Dextrose 25 ml 01/25/25 08:42 Dextrose 50%-Water Inj 50 Ml Syringe IV 02/24/25 08:41 Q15MIN PRN BG 50-70 responsive npo pt Dextrose 50 ml 01/25/25 08:42 01/29/25 08:11 Dextrose 50%-Water Inj 50 Ml Syringe IV 02/24/25 08:41 50 ml Q15MIN PRN Administration BG <50 OR BG <70 & pt unresponsive Folic Acid 1 mg 01/28/25 16:30 01/29/25 08:26 Folic Acid 1 Mg Tablet PO 02/27/25 16:29 1 mg QDAY ELVIA Administration Glucagon 1 mg 01/25/25 08:42 Glucagon Inj 1 Mg Vial IM Q15MIN PRN BG <70, and no IV access Heparin Sodium (Porcine) 5,000 unit 01/26/25 21:00 01/29/25 08:28 Heparin Sod Inj 5000 Unit/Ml Vial SC 02/09/25 14:14 5,000 unit Q12HR ELVIA Administration Protocol Dextrose 1,000 mls @ 100 mls/hr 01/29/25 08:30 01/29/25 09:05 D5w IV 01/29/25 18:29 100 mls/hr .Q10H ELVIA Administration Insulin Degludec 10 unit 10/30/25 09:00 Insulin Degludec 5 Unit/0.05 Ml (Per 5 Units) SC 03/01/25 08:59 QDAY ELVIA Insulin Human Lispro 0 unit 01/26/25 17:00 01/29/25 08:27 Insulin Lispro (Admelog) 1 Unit/0.01 Ml Unit SC 02/25/25 16:59 Not Given ACHS ELVIA Protocol Labetalol HCl 10 mg 01/26/25 11:53 Labetalol Inj 5 Mg/Ml Vial 20 Ml IVP 02/25/25 11:52 Q3HR PRN Systolic >180 and HR >75 Multivitamins/Minerals 15 ml 01/28/25 11:15 01/29/25 08:27 Multivitamin 15 Ml Udc PO 02/27/25 11:14 15 ml QDAY ELVIA Administration Ondansetron HCl 4 mg 01/28/25 11:12 01/28/25 14:52 Ondansetron Odt 4 Mg Tabrap PO 02/27/25 11:11 4 mg Q8HR PRN Administration NAUSEA OR VOMITING Protocol Oxycodone/Acetaminophen 1 tab 01/28/25 11:12 Oxycodone/Apap 5/325 Tablet PO 02/02/25 11:11 Q6HR PRN PAIN SCALE 4-10(Mod-Sev Pantoprazole Sodium 40 mg 01/25/25 09:00 01/29/25 08:28 Pantoprazole Inj 40 Mg Vial IVP 02/24/25 08:59 40 mg BID ELVIA Administration Thiamine HCl 100 mg 01/28/25 16:30 01/29/25 08:32 Thiamine 100 Mg Tablet PO 02/27/25 16:29 100 mg QDAY ELVIA Administration Vitamin B Complex/Vit C/Folic Acid 1 tab 01/28/25 16:30 01/28/25 17:34 Vitamin B Complex Tablet PO 02/27/25 16:29 1 tab QDAY ELVIA Administration Vitamin D 6,000 iu 01/28/25 16:30 01/29/25 08:26 Cholecalciferol (Vitamin D3) 1,000 Iu Tablet PO 02/27/25 16:29 6,000 iu QDAY ELVIA Administration Plan 74-year-old female with medical history significant for insulin-dependent type 2 diabetes, hypertension, hyperlipidemia, and coronary artery disease presenting with hyperosmolar hyperglycemic state (glucose ~1500, Na 170, osmolality 369) complicated by small bowel ischemia requiring emergent exploratory laparotomy for small bowel resection and anastomosis. Patient downgraded from ICU to medical floor on 01/26 for mgx for ongoing issues. #Small Bowel Ischemia S/P small bowel resection and anastomosis Post-op Day 5 The patient is status post exploratory laparotomy with small bowel resection and anastomosis. Post-operative course has been stable thus far. A large portion of ischemic jejunum and ileum was resected 280cm. The remaining jejunum and ileum were successfully anastomosed. 01/28: Due to a fever overnight, a CT of the abdomen and pelvis was ordered. The CT showed abundant stool in the colon, no bowel obstruction, mild free fluid in the lower right and left abdomen, and no evidence of abdominal or pelvic absces Plan: - Hydromorphone 0.5 mg IV every 4 hours as needed for post-operative pain. - Zofran 4 mg IV every 6 hours as needed for nausea. - Zosyn STOPPED (01/25?01/27) - no praveena perforation per surgery - Landscaping Manager following, see recs - The patient has multiple risk factors for peripheral artery disease, including coronary artery disease and diabetes. Once clinically stable and post-surgery recovery progresses, an outpatient follow-up with vascular surgery will be necessary for further evaluation, including a CTA to assess for peripheral artery disease. #Hyperosmolar hypernatremia, resolving #Hyperchloremia 2/2 to poor PO intake 01/28 Na 143 01/29 Na 146 - D5w 1L - Encourage patient to have p.o. intake #Insulin-dependent type 2 diabetes #Hypoglycemia Hemoglobin A1c: 13.7. HHS resolved, no longer on insulin drip. Patient not eating, having hypoglycemia episodes on Lantus 20 units Plan: - Decreased Lantus to 10 units with ongoing sliding scale - Will require need insulin regimen upon D/C #Acute kidney injury on chronic kidney disease, improving Pre-renal from dehydration Admission labs: BUN 85, creatinine 3.4 (baseline 1.1?1.3), eGFR 12. Plan: - Strict I&Os. - Daily renal panel to trend BUN, Cr, and electrolytes. - Avoid nephrotoxins - Renally dose meds as appropriate. - Nephrology is following. #History of coronary artery disease - Currently stable, no intervention required at this time. - Will continue home meds when stable. #Primary hypertension - Will continue home meds when stable. #Normocytic Anemia #Acute blood loss Transfused 1 unit of pRBCs on 01/15. Plan: - Monitor CBC - Transfuse if Hgb <7 #Hypercalcemia, resolved #Hyperosmolar hyperglycemic state (resolved) #Shock, likely distributive due to small bowel ischemia (resolved) #Sinus tachycardia (resolved) #Anion gap metabolic acidosis (resolved) #Lactic acidosis (resolved) Health Maintenance: Disposition: Tele DVT prophylaxis: Heparin 5000 subQ. GI prophylaxis: Pantoprazole 40mg IV BID. Diet: clear fluids CODE STATUS: FULL CODE Case discussed with my attending Dr. Murry, and senior resident, Dr. Aparna Ramirez MD PGY-1 Attending Provider Attestation/Addendum I have examined the patient, reviewed labs and imaging findings, discussed the case with the resident(s), and reviewed entered orders. I agree with the plan of care as outlined in this note, with these additional summaries/recommendations: Patient seen at bedside. No acute overnight events. Patient continues to have little to no oral intake. She has persistent nausea. Case discussed with dietary and general surgery and patient will be started on artificial nutrition. Start Reglan and we will monitor outpatient response. Patient unfortunately spiked a fever overnight and we will obtain CT abdomen pelvis to rule out abscess. Patient is postoperative day #5 status post ex lap and small bowel resection for small bowel ischemia. Continue pain management. Will continue to attempt diet as tolerated. General surgery following. Hemoglobin stable today. Patient encouraged to increase her free water intake. Patient has hyperosmolar hypernatremia secondary to dehydration. On D5W and nephrology following. Hypophosphatemia and hypocalcemia present. Replacement given and follow-up repeat levels. Patient has uncontrolled diabetes mellitus type 2 with A1c 13.7%. Diabetic education. Target blood sugar of 140-180 while hospitalized. Patient encouraged to work with physical therapy. Patient has STEVEN on CKD. Avoid nephrotoxic agents and renally dose medications. Patient updated on the plan and in agreement. All questions answered to satisfaction. Please see residents note for additional details and management. Dr. Lovely MD
[2025-01-29] MEDS: VITAMIN B COMPLEX TABLET 1 TAB PO (10:42)
[2025-01-29] MEDS: CALCIUM GLUC/NS 1000MG IVPB 1,000 MG/50 ML BAG 50 MG IV (10:52)
[2025-01-29] MEDS: ONDANSETRON ODT 4 MG TABRAP PO (10:52)
--- NOTE | 2025-01-29 14:58 | ESPR_ITS ---
Documentation for date of: 01/29/25 Subjective Subjective Interval history: Patient continuing to have nausea after PO intake, one episode of emesis at 1130 associated with a meal, as well as anorexia. She feels slightly bloated, with slightly distended abdomen. She does not complain of any acute pain or discomfort. Dressing was changed around 1430 Exam Vital Signs Temp Pulse Resp BP Pulse Ox O2 Del Method O2 Flow Rate 97.8 F 83 17 167/81 H 98 Nasal Cannula 1 01/29/25 13:00 01/29/25 13:00 01/29/25 13:00 01/29/25 13:00 01/29/25 13:00 01/29/25 13:00 01/29/25 13:00 FiO2 30 01/27/25 19:00 Constitutional Constitutional: no acute distress Routine Respiratory Exam Respiratory: Present no resp distress Routine Abdominal Exam Abdominal: Present soft, distended (moderate distention) and surgical scars (c/d/i); Absent tenderness, rebound or guarding Objective Labs 01/29/25 04:14 01/29/25 04:14 Labs: Laboratory Results - last 24 hr 01/29/25 04:14 WBC 4.6 RBC 2.63 L Hgb 7.8 L Hct 23.6 L MCV 90 MCH 29.7 MCHC 33.1 RDW Std Deviation 51.0 H Plt Count 114 L D Neut % (Auto) 58 Lymph % (Auto) 25 [place] % (Auto) 13 H Eos % (Auto) 1 Baso % (Auto) 0 Neut # (Auto) 2.7 Lymph # (Auto) 1.2 [place] # (Auto) 0.6 Eos # (Auto) 0.1 Baso # (Auto) 0.0 Immature Gran # (Auto) 0.11 H Absolute Nucleated RBC 0.02 H Immature Gran % 2 H Nucleated RBC % 0 Sodium 146 H Potassium 4.0 Chloride 113 H Carbon Dioxide 20.8 Anion Gap 12 BUN 16 Creatinine 1.1 Estim Creat Clear Calc 37.7 L eGFR 53 L BUN/Creatinine Ratio 15 Glucose 51 L Calculated Osmolality 288 Calcium 7.0 L Corrected Calcium 7.7 L Phosphorus 2.5 Total Bilirubin 0.3 AST 36 H ALT 27 Alkaline Phosphatase 78 Total Protein 4.8 L Albumin 3.1 L Globulin 1.7 L Albumin/Globulin Ratio 1.8 ABG Interpretation ABG results: 01/23/25 01/24/25 01/24/25 17:13 05:00 18:55 ABG pH 7.09 L* ABG pCO2 60 H ABG pO2 46 L* ABG HCO3 18 L ABG O2 Saturation 77 L ABG Base Excess -11 L VBG pH 7.22 L 7.25 L VBG pCO2 37 39 VBG pO2 137 H 43 D VBG Base Excess -12 L -10 L 01/24/25 20:50 ABG pH 7.24 L D ABG pCO2 44 D ABG pO2 129 H D ABG HCO3 19 L ABG O2 Saturation 100 H ABG Base Excess -8 L VBG pH VBG pCO2 VBG pO2 VBG Base Excess Quality Measures Quality Measures VTE prophylaxis Advance care planning discussed with:: other Assessment & Plan Assessment Current Active Medications: Generic Name Dose Route Start Last Admin Trade Name Freq PRN Reason Stop Dose Admin Acetaminophen 650 mg 01/28/25 11:12 01/29/25 00:46 Acetaminophen 325 Mg Tablet PO 02/27/25 11:11 650 mg Q6H PRN Administration PAIN SCALE 1-3 (mild Dextrose 25 ml 01/25/25 08:42 Dextrose 50%-Water Inj 50 Ml Syringe IV 02/24/25 08:41 Q15MIN PRN BG 50-70 responsive npo pt Dextrose 50 ml 01/25/25 08:42 01/29/25 08:11 Dextrose 50%-Water Inj 50 Ml Syringe IV 02/24/25 08:41 50 ml Q15MIN PRN Administration BG <50 OR BG <70 & pt unresponsive Folic Acid 1 mg 01/28/25 16:30 01/29/25 08:26 Folic Acid 1 Mg Tablet PO 02/27/25 16:29 1 mg QDAY ELVIA Administration Glucagon 1 mg 01/25/25 08:42 Glucagon Inj 1 Mg Vial IM Q15MIN PRN BG <70, and no IV access Heparin Sodium (Porcine) 5,000 unit 01/26/25 21:00 01/29/25 08:28 Heparin Sod Inj 5000 Unit/Ml Vial SC 02/09/25 14:14 5,000 unit Q12HR ELVIA Administration Protocol Dextrose 1,000 mls @ 100 mls/hr 01/29/25 08:30 01/29/25 09:05 D5w IV 01/29/25 18:29 100 mls/hr .Q10H ELVIA Administration Insulin Degludec 10 unit 01/30/25 09:00 Insulin Degludec 5 Unit/0.05 Ml (Per 5 Units) SC 03/01/25 08:59 QDAY ELVIA Insulin Human Lispro 0 unit 01/26/25 17:00 01/29/25 11:11 Insulin Lispro (Admelog) 1 Unit/0.01 Ml Unit SC 02/25/25 16:59 Not Given ACHS ELVIA Protocol Labetalol HCl 10 mg 01/26/25 11:53 Labetalol Inj 5 Mg/Ml Vial 20 Ml IVP 02/25/25 11:52 Q3HR PRN Systolic >180 and HR >75 Multivitamins/Minerals 15 ml 01/28/25 11:15 01/29/25 08:27 Multivitamin 15 Ml Udc PO 02/27/25 11:14 15 ml QDAY ELVIA Administration Ondansetron HCl 4 mg 01/28/25 11:12 01/29/25 10:52 Ondansetron Odt 4 Mg Tabrap PO 02/27/25 11:11 4 mg Q8HR PRN Administration NAUSEA OR VOMITING Protocol Oxycodone/Acetaminophen 1 tab 01/28/25 11:12 Oxycodone/Apap 5/325 Tablet PO 02/02/25 11:11 Q6HR PRN PAIN SCALE 4-10(Mod-Sev Pantoprazole Sodium 40 mg 01/25/25 09:00 01/29/25 08:28 Pantoprazole Inj 40 Mg Vial IVP 02/24/25 08:59 40 mg BID ELVIA Administration Thiamine HCl 100 mg 01/28/25 16:30 01/29/25 08:32 Thiamine 100 Mg Tablet PO 02/27/25 16:29 100 mg QDAY ELVIA Administration Vitamin B Complex/Vit C/Folic Acid 1 tab 01/28/25 16:30 01/29/25 10:42 Vitamin B Complex Tablet PO 02/27/25 16:29 1 tab QDAY ELVIA Administration Vitamin D 6,000 iu 01/28/25 16:30 01/29/25 08:26 Cholecalciferol (Vitamin D3) 1,000 Iu Tablet PO 02/27/25 16:29 6,000 iu QDAY ELVIA Administration Additional Assessment: 74F s/p small bowel resection and anastomosis on 01/24 with nausea, anorexia, and persistent painless abdominal swelling. Given her fever overnight will order CT AP Plan F/u CT AP Appreciate RD rec for PPN given minimal intake
--- NOTE | 2025-01-29 15:58 | XR_ITS ---
Examination: CT abdomen with intravenous contrast CT pelvis with intravenous contrast 2-D coronal reconstructions 2-D sagittal reconstructions Date and time of exam: January 29, 2025, 1743 hours, comparison January 24, 2025 INDICATIONS: Post surgical intervention with fever abdominal pain today. CTDI: vol (mGy) 6.83 DLP: (mGycm) 345 Technique: Multiple axial sections of the abdomen and pelvis have been obtained. 64 slice high-resolution scanner used. 3 mm axial sections have been obtained, post intravenous injection 60 cc [id number]-[id number] 2-D sagittal, coronal reconstructions obtained. Low dose protocols were performed. One or more of the following dose reduction techniques were used; automated exposure control, adjustment of the mA and/or KV according to patient size, use of iterative reconstruction technique. Findings: Bibasilar pneumonia with moderate bilateral pleural effusions Wall thickening distal esophagus No liver lesions Absent gallbladder No pancreatic mass No hydronephrosis Abundant stool in the colon Mild edema in the mesentery Free fluid in the lower abdomen on the right and left sides image 157 Atrophic uterus Bladder distended No definite abdominal or pelvic abscess Moderate osteopenia IMPRESSION: Bibasilar pneumonia with moderate bilateral pleural effusions Wall thickening distal esophagus, consider esophagitis Abundant stool in the colon Mild edema in the mesentery No bowel obstruction Mild free fluid in the lower abdomen on the right and left sides No abdominal or pelvic abscess at this time
[2025-01-29] MEDS: INSULIN LISPRO (AdmeLOG) 1 UNIT/0.01 ML UNIT SC ×2 (18:00→20:25)
[2025-01-29] MEDS: FAT EMULSIONS 20% IV 500 ML 32 ML IV (18:03)
[2025-01-29] MEDS: METOCLOPRAMIDE 5 MG TABLET 10 MG PO (18:10)
--- NOTE | 2025-01-29 20:16 | ESPR_ITS ---
Documentation for date of: 01/29/25 Subjective Subjective Interval history: Patient evaluated hemoglobin hematocrit 7.8 and 23.61 one episode of vomiting Exam Vital Signs Temp Pulse Resp BP Pulse Ox O2 Del Method O2 Flow Rate 99.1 F 85 19 167/74 H 97 Room Air 1 01/29/25 17:00 01/29/25 19:42 01/29/25 19:42 01/29/25 17:00 01/29/25 19:42 01/29/25 17:00 01/29/25 13:00 FiO2 30 01/27/25 19:00 Objective Labs 01/29/25 04:14 01/29/25 04:14 Labs: Laboratory Results - last 24 hr 01/29/25 04:14 WBC 4.6 RBC 2.63 L Hgb 7.8 L Hct 23.6 L MCV 90 MCH 29.7 MCHC 33.1 RDW Std Deviation 51.0 H Plt Count 114 L D Neut % (Auto) 58 Lymph % (Auto) 25 [place] % (Auto) 13 H Eos % (Auto) 1 Baso % (Auto) 0 Neut # (Auto) 2.7 Lymph # (Auto) 1.2 [place] # (Auto) 0.6 Eos # (Auto) 0.1 Baso # (Auto) 0.0 Immature Gran # (Auto) 0.11 H Absolute Nucleated RBC 0.02 H Immature Gran % 2 H Nucleated RBC % 0 Sodium 146 H Potassium 4.0 Chloride 113 H Carbon Dioxide 20.8 Anion Gap 12 BUN 16 Creatinine 1.1 Estim Creat Clear Calc 37.7 L eGFR 53 L BUN/Creatinine Ratio 15 Glucose 51 L Calculated Osmolality 288 Calcium 7.0 L Corrected Calcium 7.7 L Phosphorus 2.5 Total Bilirubin 0.3 AST 36 H ALT 27 Alkaline Phosphatase 78 Total Protein 4.8 L Albumin 3.1 L Globulin 1.7 L Albumin/Globulin Ratio 1.8 Impressions Impression: Postprandial pain status post exploratory laparotomy Resection of the small bowel and primary anastomosis ABG Interpretation ABG results: 01/23/25 01/24/25 01/24/25 17:13 05:00 18:55 ABG pH 7.09 L* ABG pCO2 60 H ABG pO2 46 L* ABG HCO3 18 L ABG O2 Saturation 77 L ABG Base Excess -11 L VBG pH 7.22 L 7.25 L VBG pCO2 37 39 VBG pO2 137 H 43 D VBG Base Excess -12 L -10 L 01/24/25 20:50 ABG pH 7.24 L D ABG pCO2 44 D ABG pO2 129 H D ABG HCO3 19 L ABG O2 Saturation 100 H ABG Base Excess -8 L VBG pH VBG pCO2 VBG pO2 VBG Base Excess Assessment & Plan Time Spent With Patient Time: Total time spent is greater than 50% in coordination of care (as documented) at patient's floor/unit and/or counseling patient:
[2025-01-30] VITALS (11 sets, daily range): BP systolic 146–162; BP diastolic 63–85; PULSE 88–100; RESP 14–95; TEMP 36.7–37.7; O2SAT 95–98; BMI 24.0
[2025-01-30 06:28] LABS: Basophils # (Auto) 0.0 Thou/mm3 (0.0-0.2); Basophils % (Auto) 0 % (0-2.5); Eosinophils # (Auto) 0.1 Thou/mm3 (0.0-0.5); Eosinophils % (Auto) 1 % (0-10); Hematocrit 23.8 % (36.0-46.0); Immature Granulocytes Auto 0.21 Thou/mm3 (0.00-0.00); Lymphocytes # (Auto) 1.7 Thou/mm3 (1.0-4.8); Lymphocytes % (Auto) 23 % (10-50); Mean Corpuscular HGB Conc 34.0 g/dl (31.0-37.0); Mean Corpuscular Hemoglobin 30.8 pg (25.0-35.0); Mean Corpuscular Volume 91 fL (80-100); Monocytes # (Auto) 0.8 Thou/mm3 (0.0-0.8); Monocytes % (Auto) 11 % (0-12); Neutrophils # (Auto) 4.5 Thou/mm3 (1.8-7.7); Neutrophils % (Auto) 62 % (37-80); Nucleated Red Blood Cell # 0.04 Thou/mm3 (0.00-0.00); Nucleated Red Blood Cell % 1 /100 WBC (0); Platelet Count 208 Thou/mm3 (140-440); RDW Standard Deviation 51.1 fL (36.4-46.3); Red Blood Count 2.63 Miln/mm3 (4.00-5.20); White Blood Count 7.3 Thou/mm3 (3.6-11.0)
[2025-01-30 06:34] LABS: Hemoglobin 8.1 g/dL (12.0-16.0)
[2025-01-30 06:45] LABS: Alanine Aminotransferase 22 U/L (10-49); Albumin, Serum 3.0 gm/dL (3.4-4.8); Albumin/Globulin Ratio 1.6 (1.2-2.2); Alkaline Phosphatase 76 U/L (46-116); Anion Gap 15 (7-16); Aspartate Amino Transferase 21 U/L (0-34); BUN/Creatinine Ratio 13 Ratio (12-20); Bilirubin,Total 0.2 mg/dL (0.3-1.2); Blood Urea Nitrogen 15 mg/dL (9-23); Calcium 7.5 mg/dL (8.3-10.6); Calcium (Corrected) 8.3 mg/dL (8.5-10.1); Carbon Dioxide 17.3 mMol/L (20.0-31.0); Chloride 107 mMol/L (98-107); Creatinine (Component) 1.2 mg/dL (0.6-1.3); Estimated Creatinine Clearance 34.6 mL/min (>60); Globulin 1.9 gm/dL (2.3-3.5); Glucose 267 mg/dL (74-106); Magnesium 1.7 mg/dL (1.6-2.6); Osmolality,Calculated 287 (275-295); Phosphorous 3.3 mg/dL (2.4-5.1); Potassium 4.4 mMol/L (3.4-5.1); Sodium 139 mMol/L (136-145); Total Protein 4.9 gm/dL (5.7-8.2); eGFR 48 See Note
[2025-01-30] MEDS: THIAMINE 100 MG TABLET PO (08:21)
[2025-01-30] MEDS: MULTIVITAMIN 15 ML UDC PO (08:21)
[2025-01-30] MEDS: FOLIC ACID 1 MG TABLET PO (08:21)
[2025-01-30] MEDS: CHOLECALCIFEROL (Vitamin D3) 1,000 IU TABLET 6000 IU PO (08:22)
[2025-01-30] MEDS: HEPARIN SOD INJ 5000 UNIT/ML VIAL SC ×2 (08:22→20:01)
[2025-01-30] MEDS: INSULIN DEGLUDEC 5 UNIT/0.05 ML (PER 5 UNITS) 10 UNIT SC (08:23)
[2025-01-30] MEDS: INSULIN LISPRO (AdmeLOG) 1 UNIT/0.01 ML UNIT SC ×4 (08:23→20:01)
[2025-01-30] MEDS: VITAMIN B COMPLEX TABLET 1 TAB PO (09:20)
[2025-01-30] MEDS: MAGNESIUM OXIDE 400 MG TABLET PO (09:20)
--- NOTE | 2025-01-30 10:15 | EKG_ITS ---
[facility] Test Date: 2025-01-30 Pat Name: YANET MORRIS 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
--- NOTE | 2025-01-30 12:11 | PC.SS ---
SS has sent updated information to [employer] using [employer]. SS has spoken to Diana Pacheco from [employer] who is aware pt will d/c today and updated inquiry will be sent on [employer].
--- NOTE | 2025-01-30 13:59 | ESPR_ITS ---
<Statement entered by Cyril Garcia MD - 01/30/25 18:10> Patient seen and assessed in hospital bed continue to have difficulty swallowing and notes trouble with food bolus but denies having any odynophagia. Speech eval has already seen the patient; however, due to poor p.o. intake, surgery has initiated PPN. Will consult gastroenterology for possible need of EGD as imaging studies show a thickened esophagus. Patient also likely has underlying gastroparesis from uncontrolled insulin-dependent type 2 diabetes. Repeat EKG shows a QTc of 430; moreover, will consider starting scheduled Reglan for gastroparesis. Will continue monitoring for any acute changes and await recommendations from general surgery and gastroenterology. I have personally seen and examined the patient. I agree with the resident's assessment and plan as documented below. Cyril Garcia DO PGY-2 Internal Medicine - GME Documentation for date of: 01/30/25 Subjective Subjective Interval history: The patient was seen and examined with no acute events overnight. Peripheral nutrition was initiated yesterday, and there have been no episodes of vomiting today. A suppository was administered for moderate stool found on CT. Magnesium has been repleted. The patient had a temperature of 100.1 overnight. If fever presents, we may need to add antibiotic coverage. Imaging shows wall thickening of the distal esophagus. I have contacted Dr. Grijalva to inquire about the possibility of performing an EGD. The patient also has uncontrolled diabetes, and we are considering a possible component of gastroparesis. Dr. Grijalva has been contacted regarding starting scheduled Reglan to address this concern. Exam Vital Signs Temp Pulse Resp BP Pulse Ox O2 Del Method O2 Flow Rate 99.2 F 90 20 146/63 H 95 Room Air 1 01/30/25 12:00 01/30/25 12:00 01/30/25 12:00 01/30/25 12:00 01/30/25 12:00 01/30/25 12:00 01/29/25 13:00 FiO2 30 01/27/25 19:00 Narrative Exam General: Elderly, frail, awake and alert. Head: Normocephalic, atraumatic. Eyes: Pupils equally round and reactive to light. Anicteric. Blind in left eye. Heart: Regular rate and rhythm, no murmurs. No JVD. Peripheral pulses 2+ and symmetric in all extremities. Lungs: Clear to auscultation bilaterally. Non-labored respirations, symmetric chest rise, no use of accessory muscles. Abdomen: Abdominal binder present. Wound dressing is clear, dry, and intact. Neurologic: No gross neurological deficit, and patient able to move all 4 extremities. Extremities: No clubbing, cyanosis, or edema. Capillary refill <2 seconds. Skin warm to touch, no mottling. Skin: No rashes, lesions, or ulcers. Psychiatric: Cooperative, appropriate mood and affect Objective Labs 01/30/25 05:04 01/31/25 05:56 Labs: Laboratory Results - last 24 hr 01/30/25 05:04 WBC 7.3 D RBC 2.63 L Hgb 8.1 L Hct 23.8 L MCV 91 MCH 30.8 MCHC 34.0 RDW Std Deviation 51.1 H Plt Count 208 D Neut % (Auto) 62 Lymph % (Auto) 23 [place] % (Auto) 11 Eos % (Auto) 1 Baso % (Auto) 0 Neut # (Auto) 4.5 Lymph # (Auto) 1.7 [place] # (Auto) 0.8 Eos # (Auto) 0.1 Baso # (Auto) 0.0 Immature Gran # (Auto) 0.21 H Absolute Nucleated RBC 0.04 H Immature Gran % 3 H Nucleated RBC % 1 H Sodium 139 Potassium 4.4 Chloride 107 Carbon Dioxide 17.3 L Anion Gap 15 BUN 15 Creatinine 1.2 Estim Creat Clear Calc 34.6 L eGFR 48 L BUN/Creatinine Ratio 13 Glucose 267 H D Calculated Osmolality 287 Calcium 7.5 L Corrected Calcium 8.3 L Phosphorus 3.3 Magnesium 1.7 Total Bilirubin 0.2 L AST 21 ALT 22 Alkaline Phosphatase 76 Total Protein 4.9 L Albumin 3.0 L Globulin 1.9 L Albumin/Globulin Ratio 1.6 ABG Interpretation ABG results: 01/23/25 01/24/25 01/24/25 17:13 05:00 18:55 ABG pH 7.09 L* ABG pCO2 60 H ABG pO2 46 L* ABG HCO3 18 L ABG O2 Saturation 77 L ABG Base Excess -11 L VBG pH 7.22 L 7.25 L VBG pCO2 37 39 VBG pO2 137 H 43 D VBG Base Excess -12 L -10 L 01/24/25 20:50 ABG pH 7.24 L D ABG pCO2 44 D ABG pO2 129 H D ABG HCO3 19 L ABG O2 Saturation 100 H ABG Base Excess -8 L VBG pH VBG pCO2 VBG pO2 VBG Base Excess Quality Measures Quality Measures VTE prophylaxis Advance care planning discussed with:: patient Assessment & Plan Assessment Current Active Medications: Generic Name Dose Route Start Last Admin Trade Name Yomaira PRN Reason Stop Dose Admin Acetaminophen 650 mg 01/28/25 11:12 01/29/25 20:23 Acetaminophen 325 Mg Tablet PO 02/27/25 11:11 650 mg Q6H PRN Administration PAIN SCALE 1-3 (mild Dextrose 25 ml 01/25/25 08:42 Dextrose 50%-Water Inj 50 Ml Syringe IV 02/24/25 08:41 Q15MIN PRN BG 50-70 responsive npo pt Dextrose 50 ml 01/25/25 08:42 01/29/25 08:11 Dextrose 50%-Water Inj 50 Ml Syringe IV 02/24/25 08:41 50 ml Q15MIN PRN Administration BG <50 OR BG <70 & pt unresponsive Folic Acid 1 mg 01/28/25 16:30 01/30/25 08:21 Folic Acid 1 Mg Tablet PO 02/27/25 16:29 1 mg QDAY ELVIA Administration Glucagon 1 mg 01/25/25 08:42 Glucagon Inj 1 Mg Vial IM Q15MIN PRN BG <70, and no IV access Heparin Sodium (Porcine) 5,000 unit 01/26/25 21:00 01/30/25 08:22 Heparin Sod Inj 5000 Unit/Ml Vial SC 02/09/25 14:14 5,000 unit Q12HR ELVIA Administration Protocol Multivitamins/Minerals 10 ml/ 2,040 mls @ 45.946 mls/hr 01/29/25 18:00 01/30/25 02:00 Potassium Phosphate 30 mmol/ IV 01/30/25 17:59 100 mls/hr Calcium Gluconate 2 gm/ Amino QDAY@1800 ONE Infusion Acids Fat Emulsion Intravenous 500 mls @ 32 mls/hr 01/29/25 18:00 01/29/25 18:03 Intralipid 20% Iv IV 02/28/25 17:59 32 mls/hr MoWeFr@1800 ELVIA Administration Insulin Degludec 10 unit 01/30/25 09:00 01/30/25 08:23 Insulin Degludec 5 Unit/0.05 Ml (Per 5 Units) SC 03/01/25 08:59 10 unit QDAY ELVIA Administration Insulin Human Lispro 0 unit 01/26/25 17:00 01/30/25 12:11 Insulin Lispro (Admelog) 1 Unit/0.01 Ml Unit SC 02/25/25 16:59 4 unit ACHS ELVIA Administration Protocol Insulin Human Regular 0 unit 01/29/25 16:26 Insulin Hum Regular 1 Unit/0.01 Ml (Per Unit) SC 02/28/25 16:25 Q6HR PRN GLYCEMIC MANAGEMENT ON PN Protocol Labetalol HCl 10 mg 01/26/25 11:53 Labetalol Inj 5 Mg/Ml Vial 20 Ml IVP 02/25/25 11:52 Q3HR PRN Systolic >180 and HR >75 Multivitamins/Minerals 15 ml 01/28/25 11:15 01/30/25 08:21 Multivitamin 15 Ml Udc PO 02/27/25 11:14 15 ml QDAY ELVIA Administration Ondansetron HCl 4 mg 01/29/25 16:31 Ondansetron Odt 4 Mg Tabrap PO 02/27/25 11:11 Q6HR PRN NAUSEA OR VOMITING Protocol Oxycodone/Acetaminophen 1 tab 01/28/25 11:12 Oxycodone/Apap 5/325 Tablet PO 02/02/25 11:11 Q6HR PRN PAIN SCALE 4-10(Mod-Sev Pantoprazole Sodium 40 mg 01/25/25 09:00 01/30/25 08:22 Pantoprazole Inj 40 Mg Vial IVP 02/24/25 08:59 40 mg BID ELVIA Administration Thiamine HCl 100 mg 01/28/25 16:30 01/30/25 08:21 Thiamine 100 Mg Tablet PO 02/27/25 16:29 100 mg QDAY ELVIA Administration Vitamin B Complex/Vit C/Folic Acid 1 tab 01/28/25 16:30 01/30/25 09:20 Vitamin B Complex Tablet PO 02/27/25 16:29 1 tab QDAY ELVIA Administration Vitamin D 6,000 iu 01/28/25 16:30 01/30/25 08:22 Cholecalciferol (Vitamin D3) 1,000 Iu Tablet PO 02/27/25 16:29 6,000 iu QDAY ELVIA Administration Plan 74-year-old female with medical history significant for insulin-dependent type 2 diabetes, hypertension, hyperlipidemia, and coronary artery disease presenting with hyperosmolar hyperglycemic state (glucose ~1500, Na 170, osmolality 369) complicated by small bowel ischemia requiring emergent exploratory laparotomy for small bowel resection and anastomosis. Patient downgraded from ICU to medical floor on 01/26 for mgx for ongoing issues. #Small Bowel Ischemia S/P small bowel resection and anastomosis Post-op Day 6 The patient is status post exploratory laparotomy with small bowel resection and anastomosis. Post-operative course has been stable thus far. A large portion of ischemic jejunum and ileum was resected 280cm. The remaining jejunum and ileum were successfully anastomosed. 01/28: Due to a fever overnight, a CT of the abdomen and pelvis was ordered. The CT showed abundant stool in the colon, no bowel obstruction, mild free fluid in the lower right and left abdomen, and no evidence of abdominal or pelvic absces Plan: - Hydromorphone 0.5 mg IV every 4 hours as needed for post-operative pain. - Zofran 4 mg IV every 6 hours as needed for nausea. - Zosyn STOPPED (01/25?01/27) - no praveena perforation per surgery - Peripheral nutrition, lumber tripper following - The patient has multiple risk factors for peripheral artery disease, including coronary artery disease and diabetes. Once clinically stable and post-surgery recovery progresses, an outpatient follow-up with vascular surgery will be necessary for further evaluation, including a CTA to assess for peripheral artery disease. #Insulin-dependent type 2 diabetes, uncontrolled #?Gastroparesis Hemoglobin A1c: 13.7. HHS resolved, no longer on insulin drip. Patient not eating, having hypoglycemia episodes on Lantus 20 units Plan: - Lantus to 10 units with ongoing sliding scale, regular insulin q6h per protocol - Contacted Dr. Grijalva regarding starting Reglan scheduled, pending response - Will require need insulin regimen upon D/C #Acute kidney injury on chronic kidney disease, improving Pre-renal from dehydration Admission labs: BUN 85, creatinine 3.4 (baseline 1.1?1.3), eGFR 12. Plan: - Strict I&Os. - Daily renal panel to trend BUN, Cr, and electrolytes. - Avoid nephrotoxins - Renally dose meds as appropriate. - Nephrology is following. #History of coronary artery disease - Currently stable, no intervention required at this time. - Will continue home meds when stable. #Primary hypertension - Will continue home meds when stable. #Normocytic Anemia #Acute blood loss Transfused 1 unit of pRBCs on 01/15. Plan: - Monitor CBC - Transfuse if Hgb <7 #Hypercalcemia, resolved #Hyperosmolar hyperglycemic state (resolved) #Shock, likely distributive due to small bowel ischemia (resolved) #Sinus tachycardia (resolved) #Anion gap metabolic acidosis (resolved) #Lactic acidosis (resolved) #Hyperosmolar hypernatremia, resolved #Hyperchloremia, resolved Health Maintenance: Disposition: Tele DVT prophylaxis: Heparin 5000 subQ. GI prophylaxis: Pantoprazole 40mg IV BID. Diet: clear fluids CODE STATUS: FULL CODE Case discussed with my attending Dr. Murry, and senior resident, Dr. Radha Ramirez MD PGY-1 Attending Provider Attestation/Addendum I have examined the patient, reviewed labs and imaging findings, discussed the case with the resident(s), and reviewed entered orders. I agree with the plan of care as outlined in this note, with these additional summaries/recommendations: Patient and patient's family seen at bedside. No acute overnight events. Today patient did endorse difficulty swallowing at times and states food gets stuck in her throat and she has to swallow multiple times for her to pass. CT also showing esophagitis. At this time patient's intractable nausea and little to no oral intake is likely related to esophagitis versus gastroparesis. Will follow- up with gastroenterology in regards to EGD and starting Reglan. Patient was started on PPN artificial nutrition given lack of oral intake and failure to thrive. CT of abdomen and pelvis yesterday showed postoperative changes and no abscess was identified. Bibasilar pneumonia is still present and continue antibiotics. General surgery following. Patient has uncontrolled diabetes mellitus type 2 with A1c 13.7%. Diabetic education. Target blood sugar of 140- 180 while hospitalized. Patient encouraged to work with physical therapy. Patient has STEVEN on CKD. Avoid nephrotoxic agents and renally dose medications. Patient updated on the plan and in agreement. All questions answered to satisfaction. Please see residents note for additional details and management. Dr. Lovely MD
--- NOTE | 2025-01-30 21:51 | PD.IMPROG ---
Documentation for date of: 01/30/25 Subjective Subjective Interval history: Patient evaluated Had a hourly sign language interpreter with me She has been having dysphagia which is getting progressively worse The dysphagia was already there before she came to the hospital this time Food getting stuck in the suprasternal notch area and she is on a pur?ed diet Exam Vital Signs Temp Pulse Resp BP Pulse Ox O2 Del Method O2 Flow Rate 99.3 F 95 20 156/68 H 96 Room Air 1 01/30/25 16:00 01/30/25 19:56 01/30/25 19:56 01/30/25 16:00 01/30/25 16:00 01/30/25 16:00 01/29/25 13:00 FiO2 30 01/27/25 19:00 Objective Labs 01/30/25 05:04 01/30/25 05:04 Labs: Laboratory Results - last 24 hr 01/30/25 05:04 WBC 7.3 D RBC 2.63 L Hgb 8.1 L Hct 23.8 L MCV 91 MCH 30.8 MCHC 34.0 RDW Std Deviation 51.1 H Plt Count 208 D Neut % (Auto) 62 Lymph % (Auto) 23 [place] % (Auto) 11 Eos % (Auto) 1 Baso % (Auto) 0 Neut # (Auto) 4.5 Lymph # (Auto) 1.7 [place] # (Auto) 0.8 Eos # (Auto) 0.1 Baso # (Auto) 0.0 Immature Gran # (Auto) 0.21 H Absolute Nucleated RBC 0.04 H Immature Gran % 3 H Nucleated RBC % 1 H Sodium 139 Potassium 4.4 Chloride 107 Carbon Dioxide 17.3 L Anion Gap 15 BUN 15 Creatinine 1.2 Estim Creat Clear Calc 34.6 L eGFR 48 L BUN/Creatinine Ratio 13 Glucose 267 H D Calculated Osmolality 287 Calcium 7.5 L Corrected Calcium 8.3 L Phosphorus 3.3 Magnesium 1.7 Total Bilirubin 0.2 L AST 21 ALT 22 Alkaline Phosphatase 76 Total Protein 4.9 L Albumin 3.0 L Globulin 1.9 L Albumin/Globulin Ratio 1.6 Impressions Impression: Progressive dysphagia plan Consent obtained for fiberoptic esophagogastroduodenoscopy with possible biopsy possible therapeutic intervention under intravenous moderate sedation scheduled for tomorrow ABG Interpretation ABG results: 01/23/25 01/24/25 01/24/25 17:13 05:00 18:55 ABG pH 7.09 L* ABG pCO2 60 H ABG pO2 46 L* ABG HCO3 18 L ABG O2 Saturation 77 L ABG Base Excess -11 L VBG pH 7.22 L 7.25 L VBG pCO2 37 39 VBG pO2 137 H 43 D VBG Base Excess -12 L -10 L 01/24/25 20:50 ABG pH 7.24 L D ABG pCO2 44 D ABG pO2 129 H D ABG HCO3 19 L ABG O2 Saturation 100 H ABG Base Excess -8 L VBG pH VBG pCO2 VBG pO2 VBG Base Excess Assessment & Plan Time Spent With Patient Time: Total time spent is greater than 50% in coordination of care (as documented) at patient's floor/unit and/or counseling patient:
[2025-01-31] VITALS (10 sets, daily range): BP systolic 139–168; BP diastolic 58–75; PULSE 81–100; RESP 16–97; TEMP 36.2–37.2; O2SAT 93–97; BMI 24.0; BMI 15.0
[2025-01-31] MEDS: ONDANSETRON ODT 4 MG TABRAP PO (04:27)
[2025-01-31 06:54] LABS: Alanine Aminotransferase 21 U/L (10-49); Albumin, Serum 3.2 gm/dL (3.4-4.8); Albumin/Globulin Ratio 1.6 (1.2-2.2); Alkaline Phosphatase 74 U/L (46-116); Anion Gap 10 (7-16); Aspartate Amino Transferase 21 U/L (0-34); BUN/Creatinine Ratio 26 Ratio (12-20); Bilirubin,Total 0.2 mg/dL (0.3-1.2); Blood Urea Nitrogen 26 mg/dL (9-23); Calcium 8.2 mg/dL (8.3-10.6); Calcium (Corrected) 8.8 mg/dL (8.5-10.1); Carbon Dioxide 17.7 mMol/L (20.0-31.0); Chloride 106 mMol/L (98-107); Creatinine (Component) 1.0 mg/dL (0.6-1.3); Estimated Creatinine Clearance 41.5 mL/min (>60); Globulin 2.0 gm/dL (2.3-3.5); Glucose 363 mg/dL (74-106); Magnesium 2.0 mg/dL (1.6-2.6); Osmolality,Calculated 287 (275-295); Phosphorous 3.1 mg/dL (2.4-5.1); Potassium 4.7 mMol/L (3.4-5.1); Sodium 134 mMol/L (136-145); Total Protein 5.2 gm/dL (5.7-8.2); eGFR 60 See Note
[2025-01-31] MEDS: INSULIN DEGLUDEC 5 UNIT/0.05 ML (PER 5 UNITS) 10 UNIT SC (08:33)
[2025-01-31] MEDS: INSULIN LISPRO (AdmeLOG) 1 UNIT/0.01 ML UNIT SC ×2 (08:35→23:52)
[2025-01-31] MEDS: HEPARIN SOD INJ 5000 UNIT/ML VIAL SC (08:35)
[2025-01-31] MEDS: THIAMINE 100 MG TABLET PO (08:36)
[2025-01-31] MEDS: MULTIVITAMIN 15 ML UDC PO (08:36)
[2025-01-31] MEDS: FOLIC ACID 1 MG TABLET PO (08:36)
[2025-01-31] MEDS: VITAMIN B COMPLEX TABLET 1 TAB PO (08:36)
--- NOTE | 2025-01-31 09:24 | PC.SS ---
Follow up note: EGD by Dr. Grijalva. Physicians will reassess pt tomorrow. Pt is on PPN. Leann Mojica is working on insurance authorization.
[2025-01-31 09:39] LABS: Basophils # (Auto) 0.0 Thou/mm3 (0.0-0.2); Basophils % (Auto) 0 % (0-2.5); Eosinophils # (Auto) 0.1 Thou/mm3 (0.0-0.5); Eosinophils % (Auto) 1 % (0-10); Hematocrit 23.4 % (36.0-46.0); Immature Granulocytes Auto 0.15 Thou/mm3 (0.00-0.00); Lymphocytes # (Auto) 1.5 Thou/mm3 (1.0-4.8); Lymphocytes % (Auto) 18 % (10-50); Mean Corpuscular HGB Conc 32.9 g/dl (31.0-37.0); Mean Corpuscular Hemoglobin 29.6 pg (25.0-35.0); Mean Corpuscular Volume 90 fL (80-100); Monocytes # (Auto) 0.7 Thou/mm3 (0.0-0.8); Monocytes % (Auto) 8 % (0-12); Neutrophils # (Auto) 6.0 Thou/mm3 (1.8-7.7); Neutrophils % (Auto) 71 % (37-80); Nucleated Red Blood Cell # 0.02 Thou/mm3 (0.00-0.00); Nucleated Red Blood Cell % 0 /100 WBC (0); Platelet Count 319 Thou/mm3 (140-440); RDW Standard Deviation 47.6 fL (36.4-46.3); Red Blood Count 2.60 Miln/mm3 (4.00-5.20); White Blood Count 8.4 Thou/mm3 (3.6-11.0)
[2025-01-31 09:46] LABS: Hemoglobin 7.7 g/dL (12.0-16.0)
--- NOTE | 2025-01-31 09:54 | PC.SS ---
Addendum entered by Abbi Talamantes 01/31/25 10:52: SS attempted to contact patient's health insurance but was unsuccessful. SS left voicemail for piano case and bench assembler with SS contact information and informing her pt is possible d/c over the weekend to [facility]. Original Note: Follow up note: SS has updated inquiry to [facility]. SS has informed Diana Rausch and Diana Pacheco pt is possible d/c over the weekend. Per Diana Rausch patient's health insurance is requesting d/c orders. Diana Rausch is aware pt is not ready for dc and once d/c orders are in they can be sent on [facility].
--- NOTE | 2025-01-31 13:52 | ESPR_ITS ---
Documentation for date of: 01/31/25 Subjective Subjective Interval history: Patient seen and assessed in hospital bed denies any concerning symptoms at this time. Patient denies having any abdominal pain but she is continuing to have difficulty swallowing and has some nausea associated with vomiting. EGD scheduled with gastroenterology for dysphagia. Will continue PPN at this time and follow-up on GI recommendations post EGD. Patient's blood sugars on the higher end, will continue bedside glucose checks every 6 hours and continue long-acting and short acting insulin. Exam Vital Signs Temp Pulse Resp BP Pulse Ox O2 Del Method O2 Flow Rate 98.4 F 81 20 149/70 H 97 Room Air 1 01/31/25 11:44 01/31/25 11:44 01/31/25 11:44 01/31/25 11:44 01/31/25 11:44 01/31/25 08:22 01/29/25 13:00 FiO2 30 01/27/25 19:00 Narrative Exam General: Elderly, frail, awake and alert. Head: Normocephalic, atraumatic. Eyes: Pupils equally round and reactive to light. Anicteric. Blind in left eye. Heart: Regular rate and rhythm, no murmurs. No JVD. Peripheral pulses 2+ and symmetric in all extremities. Lungs: Clear to auscultation bilaterally. Non-labored respirations, symmetric chest rise, no use of accessory muscles. Abdomen: Abdominal binder present. Wound dressing is clear, dry, and intact. Neurologic: No gross neurological deficit, and patient able to move all 4 extremities. Extremities: No clubbing, cyanosis, or edema. Capillary refill <2 seconds. Skin warm to touch, no mottling. Skin: No rashes, lesions, or ulcers. Psychiatric: Cooperative, appropriate mood and affect Objective Labs 01/31/25 08:40 01/31/25 05:56 Labs: Laboratory Results - last 24 hr 01/31/25 01/31/25 05:56 08:40 WBC 8.4 RBC 2.60 L Hgb 7.7 L Hct 23.4 L MCV 90 MCH 29.6 MCHC 32.9 RDW Std Deviation 47.6 H Plt Count 319 D Neut % (Auto) 71 Lymph % (Auto) 18 [place] % (Auto) 8 Eos % (Auto) 1 Baso % (Auto) 0 Neut # (Auto) 6.0 Lymph # (Auto) 1.5 [place] # (Auto) 0.7 Eos # (Auto) 0.1 Baso # (Auto) 0.0 Immature Gran # (Auto) 0.15 H Absolute Nucleated RBC 0.02 H Immature Gran % 2 H Nucleated RBC % 0 Sodium 134 L Potassium 4.7 Chloride 106 Carbon Dioxide 17.7 L Anion Gap 10 BUN 26 H Creatinine 1.0 Estim Creat Clear Calc 41.5 L eGFR 60 BUN/Creatinine Ratio 26 H Glucose 363 H D Calculated Osmolality 287 Calcium 8.2 L Corrected Calcium 8.8 Phosphorus 3.1 Magnesium 2.0 Total Bilirubin 0.2 L AST 21 ALT 21 Alkaline Phosphatase 74 Total Protein 5.2 L Albumin 3.2 L Globulin 2.0 L Albumin/Globulin Ratio 1.6 ABG Interpretation ABG results: 01/23/25 01/24/25 01/24/25 17:13 05:00 18:55 ABG pH 7.09 L* ABG pCO2 60 H ABG pO2 46 L* ABG HCO3 18 L ABG O2 Saturation 77 L ABG Base Excess -11 L VBG pH 7.22 L 7.25 L VBG pCO2 37 39 VBG pO2 137 H 43 D VBG Base Excess -12 L -10 L 01/24/25 20:50 ABG pH 7.24 L D ABG pCO2 44 D ABG pO2 129 H D ABG HCO3 19 L ABG O2 Saturation 100 H ABG Base Excess -8 L VBG pH VBG pCO2 VBG pO2 VBG Base Excess Quality Measures Quality Measures VTE prophylaxis Advance care planning discussed with:: patient Assessment & Plan Assessment Current Active Medications: Generic Name Dose Route Start Last Admin Trade Name Freq PRN Reason Stop Dose Admin Acetaminophen 650 mg 01/28/25 11:12 01/29/25 20:23 Acetaminophen 325 Mg Tablet PO 02/27/25 11:11 650 mg Q6H PRN Administration PAIN SCALE 1-3 (mild Dextrose 25 ml 01/25/25 08:42 Dextrose 50%-Water Inj 50 Ml Syringe IV 02/24/25 08:41 Q15MIN PRN BG 50-70 responsive npo pt Dextrose 50 ml 01/25/25 08:42 01/29/25 08:11 Dextrose 50%-Water Inj 50 Ml Syringe IV 02/24/25 08:41 50 ml Q15MIN PRN Administration BG <50 OR BG <70 & pt unresponsive Folic Acid 1 mg 01/28/25 16:30 01/31/25 08:36 Folic Acid 1 Mg Tablet PO 02/27/25 16:29 1 mg QDAY ELVIA Administration Glucagon 1 mg 01/25/25 08:42 Glucagon Inj 1 Mg Vial IM Q15MIN PRN BG <70, and no IV access Heparin Sodium (Porcine) 5,000 unit 01/26/25 21:00 01/31/25 08:35 Heparin Sod Inj 5000 Unit/Ml Vial SC 02/09/25 14:14 5,000 unit Q12HR ELVIA Administration Protocol Fat Emulsion Intravenous 500 mls @ 32 mls/hr 01/29/25 18:00 01/29/25 18:03 Intralipid 20% Iv IV 02/28/25 17:59 32 mls/hr MoWeFr@1800 ELVIA Administration Multivitamins/Minerals 10 ml/ 2,039 mls @ 100 mls/hr 01/30/25 18:00 01/30/25 17:39 Potassium Phosphate 15 mmol/ IV 01/31/25 14:23 100 mls/hr Calcium Gluconate 2 gm/ QDAY@1800 ONE Administration Magnesium Sulfate 2 gm/ Amino Acids Sodium Acetate 40 meq/ Calcium 2,050 mls @ 100 mls/hr 01/31/25 14:24 Gluconate 2 gm/ Multivitamins IV 02/01/25 10:53 /Minerals 10 ml/ Amino Acids .[id number] [facility] Insulin Degludec 10 unit 01/30/25 09:00 01/31/25 08:33 Insulin Degludec 5 Unit/0.05 Ml (Per 5 Units) ND 03/01/25 08:59 10 unit QDAY [facility] Administration Insulin Human Lispro 0 unit 01/31/25 12:00 Insulin Lispro (Admelog) 1 Unit/0.01 Ml Unit ND 03/02/25 11:59 Q6HR [facility] Protocol Insulin Human Regular 0 unit 01/29/25 16:26 Insulin Hum Regular 1 Unit/0.01 Ml (Per Unit) ND 02/28/25 16:25 On Hold: 01/31/25 11:12 Q6HR PRN Comment: PER DR. COSME, HE GLYCEMIC MANAGEMENT ON PN WOULD LIKE INSULIN REGULAR Protocol SLIDING SCALE TO BE ACTIVE Labetalol HCl 10 mg 01/26/25 11:53 Labetalol Inj 5 Mg/Ml Vial 20 Ml IVP 02/25/25 11:52 Q3HR PRN Systolic >180 and HR >75 Multivitamins/Minerals 15 ml 01/28/25 11:15 01/31/25 08:36 Multivitamin 15 Ml Udc PO 02/27/25 11:14 15 ml QDAY ELVIA Administration Ondansetron HCl 4 mg 01/29/25 16:31 01/31/25 04:27 Ondansetron Odt 4 Mg Tabrap PO 02/27/25 11:11 4 mg Q6HR PRN Administration NAUSEA OR VOMITING Protocol Oxycodone/Acetaminophen 1 tab 01/28/25 11:12 Oxycodone/Apap 5/325 Tablet PO 02/02/25 11:11 Q6HR PRN PAIN SCALE 4-10(Mod-Sev Pantoprazole Sodium 40 mg 01/25/25 09:00 01/31/25 08:35 Pantoprazole Inj 40 Mg Vial IVP 02/24/25 08:59 40 mg BID ELVIA Administration Thiamine HCl 100 mg 01/28/25 16:30 01/31/25 08:36 Thiamine 100 Mg Tablet PO 02/27/25 16:29 100 mg QDAY ELVIA Administration Vitamin B Complex/Vit C/Folic Acid 1 tab 01/28/25 16:30 01/31/25 08:36 Vitamin B Complex Tablet PO 02/27/25 16:29 1 tab QDAY ELVIA Administration Vitamin D 6,000 iu 01/28/25 16:30 01/31/25 08:53 Cholecalciferol (Vitamin D3) 1,000 Iu Tablet PO 02/27/25 16:29 Not Given QDAY ELVIA Plan 74-year-old female with medical history significant for insulin-dependent type 2 diabetes, hypertension, hyperlipidemia, and coronary artery disease presenting with hyperosmolar hyperglycemic state (glucose ~1500, Na 170, osmolality 369) complicated by small bowel ischemia requiring emergent exploratory laparotomy for small bowel resection and anastomosis. Patient downgraded from ICU to medical floor on 01/26 for mgx for ongoing issues. #Dysphagia Likely esophageal dysphagia versus oropharyngeal as the patient has symptoms of regurgitation along with nausea and vomiting and no problem initiating swallowing. Patient having dysphagia to both solid and liquids Patient on PPN for having poor oral intake Plan: Gastroenterology consulted, EGD planned for later today, will follow-up with recommendations #Small Bowel Ischemia S/P small bowel resection and anastomosis Post-op Day 7 The patient is status post exploratory laparotomy with small bowel resection and anastomosis. Post-operative course has been stable thus far. A large portion of ischemic jejunum and ileum was resected 280cm. The remaining jejunum and ileum were successfully anastomosed. 01/28: Due to a fever overnight, a CT of the abdomen and pelvis was ordered. The CT showed abundant stool in the colon, no bowel obstruction, mild free fluid in the lower right and left abdomen, and no evidence of abdominal or pelvic absces Plan: - Hydromorphone 0.5 mg IV every 4 hours as needed for post-operative pain. - Zofran 4 mg IV every 6 hours as needed for nausea. - Peripheral nutrition, [employer] scout following - The patient has multiple risk factors for peripheral artery disease, including coronary artery disease and diabetes. Once clinically stable and post-surgery recovery progresses, an outpatient follow-up with vascular surgery will be necessary for further evaluation, including a CTA to assess for peripheral artery disease. #Insulin-dependent type 2 diabetes, uncontrolled #?Gastroparesis Hemoglobin A1c: 13.7. HHS resolved, no longer on insulin drip. Patient not eating, having hypoglycemia episodes on Lantus 20 units Plan: - Lantus to 10 units with ongoing sliding scale, regular insulin q6h per protocol - Will consider starting Reglan scheduled - Will require need insulin regimen upon D/C #Acute kidney injury on chronic kidney disease, improving Pre-renal from dehydration Admission labs: BUN 85, creatinine 3.4 (baseline 1.1?1.3), eGFR 12. Plan: - Strict I&Os. - Daily renal panel to trend BUN, Cr, and electrolytes. - Avoid nephrotoxins - Renally dose meds as appropriate. - Nephrology is following. #History of coronary artery disease - Currently stable, no intervention required at this time. - Will continue home meds when stable. #Primary hypertension - Will continue home meds when stable. #Normocytic Anemia #Acute blood loss Transfused 1 unit of pRBCs on 01/15. Plan: - Monitor CBC - Transfuse if Hgb <7 #Hypercalcemia, resolved #Hyperosmolar hyperglycemic state (resolved) #Shock, likely distributive due to small bowel ischemia (resolved) #Sinus tachycardia (resolved) #Anion gap metabolic acidosis (resolved) #Lactic acidosis (resolved) #Hyperosmolar hypernatremia, resolved #Hyperchloremia, resolved Health Maintenance: Disposition: Tele DVT prophylaxis: Heparin 5000 subQ. GI prophylaxis: Pantoprazole 40mg IV BID. Diet: clear fluids CODE STATUS: FULL CODE Patient seen and assessed with attending Dr. Lovely Cosme DO PGY-2 Internal Medicine - GME Attending Provider Attestation/Addendum I have examined the patient, reviewed labs and imaging findings, discussed the case with the resident(s), and reviewed entered orders. I agree with the plan of care as outlined in this note, with these additional summaries/recommendations: Patient and patient's family seen at bedside. No acute overnight events. Patient endorses dysphagia. CT also showing esophagitis which may be related to bisphosphonates. Patient continues to have little to no oral intake. Continue PPN as patient is tolerating well. Hyperglycemia noted on chemistry panel and will discuss with dietary. Gastroenterology consulted and patient will go for EGD today. CT of abdomen and pelvis showed postoperative changes and no abscess was identified. Bibasilar pneumonia is still present and continue antibiotics. General surgery following. Patient has uncontrolled diabetes mellitus type 2 with A1c 13.7%. Diabetic education. Target blood sugar of 140-180 while hospitalized. Patient encouraged to work with physical therapy. Patient has STEVEN on CKD. Avoid nephrotoxic agents and renally dose medications. Patient updated on the plan and in agreement. All questions answered to satisfaction. Please see residents note for additional details and management. Dr. Lovely MD
--- NOTE | 2025-01-31 16:14 | PC.NURSE ---
Bria RN, Peyton RN and I tried to insert an IV could not access. Called Shayne from ICU and Jamie from ER for ultra sound guided IV insertion. They are not able to come they are busy with patients.
--- NOTE | 2025-01-31 17:14 | PC.NURSE ---
Notified Dr. Ricci patient has no IV access multiple RN's have tried patient upper extremities are swollen. EGD was not able to be done. Patient is on PPN and lipids and no IV access on patient. Called doctor to suggest a central line placement. Will continue to monitor patient.
--- NOTE | 2025-01-31 17:54 | PC.NURSE ---
Dr Ricci notified me central line cant be place. Have ER or ICU come and try with ultrasound machine. I will notify rn palliative care RN.
--- NOTE | 2025-01-31 20:00 | PC.NURSE ---
Several attempts made to find and try IV access unable. will reach out to ICU dept.
--- NOTE | 2025-01-31 20:04 | ESPR_ITS ---
Documentation for date of: 01/31/25 Subjective Subjective Interval history: Patient evaluated she was scheduled for an upper endoscopy with possible endoscopic dilatation of the esophagus No IV access Procedure canceled and rescheduled for tomorrow Exam Vital Signs Temp Pulse Resp BP Pulse Ox O2 Del Method O2 Flow Rate 97.1 F 85 19 147/58 H 93 L Room Air 1 01/31/25 16:00 01/31/25 16:00 01/31/25 16:00 01/31/25 16:00 01/31/25 16:00 01/31/25 08:22 01/29/25 13:00 FiO2 30 01/27/25 19:00 Objective Labs 01/31/25 08:40 01/31/25 05:56 Labs: Laboratory Results - last 24 hr 01/31/25 01/31/25 05:56 08:40 WBC 8.4 RBC 2.60 L Hgb 7.7 L Hct 23.4 L MCV 90 MCH 29.6 MCHC 32.9 RDW Std Deviation 47.6 H Plt Count 319 D Neut % (Auto) 71 Lymph % (Auto) 18 [place] % (Auto) 8 Eos % (Auto) 1 Baso % (Auto) 0 Neut # (Auto) 6.0 Lymph # (Auto) 1.5 [place] # (Auto) 0.7 Eos # (Auto) 0.1 Baso # (Auto) 0.0 Immature Gran # (Auto) 0.15 H Absolute Nucleated RBC 0.02 H Immature Gran % 2 H Nucleated RBC % 0 Sodium 134 L Potassium 4.7 Chloride 106 Carbon Dioxide 17.7 L Anion Gap 10 BUN 26 H Creatinine 1.0 Estim Creat Clear Calc 41.5 L eGFR 60 BUN/Creatinine Ratio 26 H Glucose 363 H D Calculated Osmolality 287 Calcium 8.2 L Corrected Calcium 8.8 Phosphorus 3.1 Magnesium 2.0 Total Bilirubin 0.2 L AST 21 ALT 21 Alkaline Phosphatase 74 Total Protein 5.2 L Albumin 3.2 L Globulin 2.0 L Albumin/Globulin Ratio 1.6 Impressions Impression: Progressive dysphagia Plan Because of lack of IV access patient procedure postponed to tomorrow ABG Interpretation ABG results: 01/23/25 01/24/25 01/24/25 17:13 05:00 18:55 ABG pH 7.09 L* ABG pCO2 60 H ABG pO2 46 L* ABG HCO3 18 L ABG O2 Saturation 77 L ABG Base Excess -11 L VBG pH 7.22 L 7.25 L VBG pCO2 37 39 VBG pO2 137 H 43 D VBG Base Excess -12 L -10 L 01/24/25 20:50 ABG pH 7.24 L D ABG pCO2 44 D ABG pO2 129 H D ABG HCO3 19 L ABG O2 Saturation 100 H ABG Base Excess -8 L VBG pH VBG pCO2 VBG pO2 VBG Base Excess Assessment & Plan Time Spent With Patient Time: Total time spent is greater than 50% in coordination of care (as documented) at patient's floor/unit and/or counseling patient:
[2025-02-01] VITALS (16 sets, daily range): BP systolic 99–170; BP diastolic 51–87; PULSE 74–119; RESP 12–22; TEMP 36.1–37.1; O2SAT 92–99; BMI 24.4
--- NOTE | 2025-02-01 07:39 | PC.NURSE ---
Called ICU to see if someone is available to insert a 20IV to start PPN on patient. No one is available
[2025-02-01 07:53] LABS: Basophils # (Auto) 0.0 Thou/mm3 (0.0-0.2); Basophils % (Auto) 0 % (0-2.5); Eosinophils # (Auto) 0.1 Thou/mm3 (0.0-0.5); Eosinophils % (Auto) 1 % (0-10); Hematocrit 23.3 % (36.0-46.0); Immature Granulocytes Auto 0.13 Thou/mm3 (0.00-0.00); Lymphocytes # (Auto) 1.7 Thou/mm3 (1.0-4.8); Lymphocytes % (Auto) 18 % (10-50); Mean Corpuscular HGB Conc 33.5 g/dl (31.0-37.0); Mean Corpuscular Hemoglobin 29.8 pg (25.0-35.0); Mean Corpuscular Volume 89 fL (80-100); Monocytes # (Auto) 0.8 Thou/mm3 (0.0-0.8); Monocytes % (Auto) 8 % (0-12); Neutrophils # (Auto) 6.7 Thou/mm3 (1.8-7.7); Neutrophils % (Auto) 71 % (37-80); Nucleated Red Blood Cell # 0.00 Thou/mm3 (0.00-0.00); Nucleated Red Blood Cell % 0 /100 WBC (0); Platelet Count 423 Thou/mm3 (140-440); RDW Standard Deviation 47.7 fL (36.4-46.3); Red Blood Count 2.62 Miln/mm3 (4.00-5.20); White Blood Count 9.5 Thou/mm3 (3.6-11.0)
[2025-02-01 07:58] LABS: Hemoglobin 7.8 g/dL (12.0-16.0)
[2025-02-01 08:09] LABS: Alanine Aminotransferase 21 U/L (10-49); Albumin, Serum 3.3 gm/dL (3.4-4.8); Albumin/Globulin Ratio 1.7 (1.2-2.2); Alkaline Phosphatase 71 U/L (46-116); Anion Gap 10 (7-16); Aspartate Amino Transferase 24 U/L (0-34); BUN/Creatinine Ratio 29 Ratio (12-20); Bilirubin,Total 0.3 mg/dL (0.3-1.2); Blood Urea Nitrogen 32 mg/dL (9-23); Calcium 8.4 mg/dL (8.3-10.6); Calcium (Corrected) 9.0 mg/dL (8.5-10.1); Carbon Dioxide 19.8 mMol/L (20.0-31.0); Chloride 108 mMol/L (98-107); Creatinine (Component) 1.1 mg/dL (0.6-1.3); Estimated Creatinine Clearance 38.1 mL/min (>60); Globulin 1.9 gm/dL (2.3-3.5); Glucose 175 mg/dL (74-106); Magnesium 1.8 mg/dL (1.6-2.6); Osmolality,Calculated 286 (275-295); Phosphorous 3.4 mg/dL (2.4-5.1); Potassium 4.9 mMol/L (3.4-5.1); Sodium 138 mMol/L (136-145); Total Protein 5.2 gm/dL (5.7-8.2); eGFR 53 See Note
--- NOTE | 2025-02-01 09:50 | PC.SS ---
SS update: TRAVELER CHANGER placed phone call to Gianna from [facility], Gianna stated that patient is still pending insurance authorization.
--- NOTE | 2025-02-01 10:57 | PC.NURSE ---
Kayla HODGES from ICU came and inserted a 20G IV started patient back on PPN. Called Dr. Grijalva and nofied him patien has an IV EGD can be done. Dr. Grijalva will do EGD today.
[2025-02-01] MEDS: SODIUM CHLORIDE 0.9% 500 ML 500 ML 20 ML IV (13:15)
--- NOTE | 2025-02-01 14:05 | SUR.PHASEI ---
[id number] patient arrived to recovery, report received from Janell HODGES
--- NOTE | 2025-02-01 14:41 | SUR.PHASEI ---
[id number] Patient transported via gurney to room 361 without incident, SOFTWARE DATABASE ARCHITECT promptly in patient room and assisted with changing patient brief, ulises-care provider, patient family member at bedside, patient resting comfortably in bed with SOFTWARE DATABASE ARCHITECT at bedside when his health underwriter left patients room
--- NOTE | 2025-02-01 16:38 | ESPR_ITS ---
<Statement entered by Yuan Benoit MD - 02/01/25 18:00> Patient was seen and examined at bedside. I agree on the assessment and plan on this note as documented by resident José Ritter DO PGY1. 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 Additional IV line placed earlier this morning and patient is scheduled for EGD, will monitor post EGD results and follow GI recommendations. Otherwise we will continue PPN for now, pain management. Case discussed with attending Dr. Yinka Benoit MD PGY-2 Documentation for date of: 02/01/25 Subjective Subjective Interval history: Patient seen and assessed in hospital bed denies any concerning symptoms at this time. Patient denies having any abdominal pain. Patient has been n.p.o., and upon nursing checks overnight was found to have infiltrated every IV line established. EGD scheduled for yesterday was cancelled as there were no viable IV access sites. ICU reestablished a 22-gauge IV line, and another IV access site for PPN was created later. EGD scheduled with possible dilatation for dysphagia. Will continue PPN at this time and follow-up on GI recommendations post EGD. Exam Vital Signs Temp Pulse Resp BP Pulse Ox O2 Del Method O2 Flow Rate 97.7 F 96 17 146/60 H 95 Room Air 4 02/01/25 14:35 02/01/25 14:35 02/01/25 14:35 02/01/25 14:35 02/01/25 14:35 02/01/25 12:00 02/01/25 14:35 FiO2 30 01/27/25 19:00 Narrative Exam General: Elderly, frail, awake and alert. Head: Normocephalic, atraumatic. Eyes: Pupils equally round and reactive to light. Anicteric. Blind in left eye. Heart: Regular rate and rhythm, no murmurs. No JVD. Peripheral pulses 2+ and symmetric in all extremities. Lungs: Clear to auscultation bilaterally. Non-labored respirations, symmetric chest rise, no use of accessory muscles. Abdomen: Abdominal binder present. Wound dressing is clear, dry, and intact. Neurologic: No gross neurological deficit, and patient able to move all 4 extremities. Extremities: No clubbing, cyanosis, or edema. Capillary refill <2 seconds. Skin warm to touch, no mottling. Skin: No rashes, lesions, or ulcers. Psychiatric: Cooperative, appropriate mood and affect Objective Labs 02/02/25 04:35 02/02/25 04:35 Labs: Laboratory Results - last 24 hr 02/01/25 07:20 WBC 9.5 RBC 2.62 L Hgb 7.8 L Hct 23.3 L MCV 89 MCH 29.8 MCHC 33.5 RDW Std Deviation 47.7 H Plt Count 423 D Neut % (Auto) 71 Lymph % (Auto) 18 Lee % (Auto) 8 Eos % (Auto) 1 Baso % (Auto) 0 Neut # (Auto) 6.7 Lymph # (Auto) 1.7 Lee # (Auto) 0.8 Eos # (Auto) 0.1 Baso # (Auto) 0.0 Immature Gran # (Auto) 0.13 H Absolute Nucleated RBC 0.00 Immature Gran % 1 H Nucleated RBC % 0 Sodium 138 Potassium 4.9 Chloride 108 H Carbon Dioxide 19.8 L Anion Gap 10 BUN 32 H Creatinine 1.1 Estim Creat Clear Calc 38.1 L eGFR 53 L BUN/Creatinine Ratio 29 H Glucose 175 H D Calculated Osmolality 286 Calcium 8.4 Corrected Calcium 9.0 Phosphorus 3.4 Magnesium 1.8 Total Bilirubin 0.3 AST 24 ALT 21 Alkaline Phosphatase 71 Total Protein 5.2 L Albumin 3.3 L Globulin 1.9 L Albumin/Globulin Ratio 1.7 ABG Interpretation ABG results: 01/23/25 01/24/25 01/24/25 17:13 05:00 18:55 ABG pH 7.09 L* ABG pCO2 60 H ABG pO2 46 L* ABG HCO3 18 L ABG O2 Saturation 77 L ABG Base Excess -11 L VBG pH 7.22 L 7.25 L VBG pCO2 37 39 VBG pO2 137 H 43 D VBG Base Excess -12 L -10 L 01/24/25 20:50 ABG pH 7.24 L D ABG pCO2 44 D ABG pO2 129 H D ABG HCO3 19 L ABG O2 Saturation 100 H ABG Base Excess -8 L VBG pH VBG pCO2 VBG pO2 VBG Base Excess Quality Measures Quality Measures VTE prophylaxis Advance care planning discussed with:: patient Assessment & Plan Assessment Current Active Medications: Generic Name Dose Route Start Last Admin Trade Name Freq PRN Reason Stop Dose Admin Acetaminophen 650 mg 01/28/25 11:12 01/29/25 20:23 Acetaminophen 325 Mg Tablet PO 02/27/25 11:11 650 mg Q6H PRN Administration PAIN SCALE 1-3 (mild Dextrose 25 ml 01/25/25 08:42 Dextrose 50%-Water Inj 50 Ml Syringe IV 02/24/25 08:41 Q15MIN PRN BG 50-70 responsive npo pt Dextrose 50 ml 01/25/25 08:42 01/29/25 08:11 Dextrose 50%-Water Inj 50 Ml Syringe IV 02/24/25 08:41 50 ml Q15MIN PRN Administration BG <50 OR BG <70 & pt unresponsive Folic Acid 1 mg 01/28/25 16:30 02/01/25 08:20 Folic Acid 1 Mg Tablet PO 02/27/25 16:29 Not Given QDAY [facility] Glucagon 1 mg 01/25/25 08:42 Glucagon Inj 1 Mg Vial IM Q15MIN PRN BG <70, and no IV access Heparin Sodium (Porcine) 5,000 unit 01/26/25 21:00 02/01/25 08:21 Heparin Sod Inj 5000 Unit/Ml Vial SC 02/09/25 14:14 Not Given Q12HR [facility] Protocol Fat Emulsion Intravenous 500 mls @ 32 mls/hr 01/29/25 18:00 01/31/25 19:13 Intralipid 20% Iv IV 02/28/25 17:59 Not Given [id number] [facility] Sodium Acetate 40 meq/ 2,034 mls @ 50 mls/hr 02/01/25 11:00 02/01/25 10:43 Magnesium Sulfate 2 gm/ IV 02/02/25 10:59 50 mls/hr Multivitamins/Minerals 10 ml/ .Q24H [facility] Administration Amino Acids Insulin Degludec 10 unit 01/30/25 09:00 02/01/25 08:21 Insulin Degludec 5 Unit/0.05 Ml (Per 5 Units) SC 03/01/25 08:59 Not Given QDAY [facility] Insulin Human Lispro 0 unit 01/31/25 12:00 02/01/25 11:40 Insulin Lispro (Admelog) 1 Unit/0.01 Ml Unit SC 03/02/25 11:59 Not Given Q6HR [facility] Protocol Insulin Human Regular 0 unit 01/29/25 16:26 Insulin Hum Regular 1 Unit/0.01 Ml (Per Unit) SC 02/28/25 16:25 On Hold: 01/31/25 11:12 Q6HR PRN Comment: PER DR. COSME, HE GLYCEMIC MANAGEMENT ON PN WOULD LIKE INSULIN REGULAR Protocol SLIDING SCALE TO BE ACTIVE Labetalol HCl 10 mg 01/26/25 11:53 Labetalol Inj 5 Mg/Ml Vial 20 Ml IVP 02/25/25 11:52 Q3HR PRN Systolic >180 and HR >75 Metoclopramide HCl 5 mg 02/01/25 21:00 Metoclopramide Inj 5 Mg/Ml Vial 2 Ml IVP 03/03/25 20:59 Q12HR [facility] Protocol Multivitamins/Minerals 15 ml 01/28/25 11:15 02/01/25 08:21 Multivitamin 15 Ml Udc PO 02/27/25 11:14 Not Given QDAY [facility] Ondansetron HCl 4 mg 01/29/25 16:31 01/31/25 04:27 Ondansetron Odt 4 Mg Tabrap PO 02/27/25 11:11 4 mg Q6HR PRN Administration NAUSEA OR VOMITING Protocol Oxycodone/Acetaminophen 1 tab 01/28/25 11:12 Oxycodone/Apap 5/325 Tablet PO 02/02/25 11:11 Q6HR PRN PAIN SCALE 4-10(Mod-Sev Pantoprazole Sodium 40 mg 01/25/25 09:00 02/01/25 08:21 Pantoprazole Inj 40 Mg Vial IVP 02/24/25 08:59 40 mg BID ELVIA Administration Thiamine HCl 100 mg 01/28/25 16:30 02/01/25 08:21 Thiamine 100 Mg Tablet PO 02/27/25 16:29 Not Given QDAY [facility] Vitamin B Complex/Vit C/Folic Acid 1 tab 01/28/25 16:30 02/01/25 08:22 Vitamin B Complex Tablet PO 02/27/25 16:29 Not Given QDAY [facility] Vitamin D 6,000 iu 01/28/25 16:30 02/01/25 08:20 Cholecalciferol (Vitamin D3) 1,000 Iu Tablet PO 02/27/25 16:29 Not Given QDAY [facility] Plan 74-year-old female with medical history significant for insulin-dependent type 2 diabetes, hypertension, hyperlipidemia, and coronary artery disease presenting with hyperosmolar hyperglycemic state (glucose ~1500, Na 170, osmolality 369) complicated by small bowel ischemia requiring emergent exploratory laparotomy for small bowel resection and anastomosis. Patient downgraded from ICU to medical floor on 01/26 for mgx for ongoing issues. #Dysphagia Likely esophageal dysphagia versus oropharyngeal as the patient has symptoms of regurgitation along with nausea and vomiting and no problem initiating swallowing. Patient having dysphagia to both solid and liquids Patient on PPN for having poor oral intake EGD ([id number]) One benign-appearing, circumferential scarring or stenosis was found in the proximal esophagus. Dilation was performed. Many cratered esophageal ulcers oozing blood were found in the middle and lower thirds of the soft. Two biopsies were obtained from the lower third of the esophagus. Diffuse moderate inflammation was found in the entire examined stomach. 2 biopsies were obtained. The second portion of the duodenum was normal. Plan: - GI, Dr Grijalva, consulted, appreciate recs ? Await pathology results ? IV Protonix p.o. 40 mg twice daily ? Reglan IV 5 mg bid ? Advance to peptic ulcer disease diet ? Patient has an 8 cm hiatal hernia that may need surgical evaluation in the future #Small Bowel Ischemia S/P small bowel resection and anastomosis Post-op Day 7 The patient is status post exploratory laparotomy with small bowel resection and anastomosis. Post-operative course has been stable thus far. A large portion of ischemic jejunum and ileum was resected 280cm. The remaining jejunum and ileum were successfully anastomosed. 01/28: Due to a fever overnight, a CT of the abdomen and pelvis was ordered. The CT showed abundant stool in the colon, no bowel obstruction, mild free fluid in the lower right and left abdomen, and no evidence of abdominal or pelvic absces Plan: - Hydromorphone 0.5 mg IV every 4 hours as needed for post-operative pain. - Zofran 4 mg IV every 6 hours as needed for nausea. - Peripheral nutrition, bookkeeping service sales agent following - The patient has multiple risk factors for peripheral artery disease, including coronary artery disease and diabetes. Once clinically stable and post-surgery recovery progresses, an outpatient follow-up with vascular surgery will be necessary for further evaluation, including a CTA to assess for peripheral artery disease. #Insulin-dependent type 2 diabetes, uncontrolled #?Gastroparesis Hemoglobin A1c: 13.7. HHS resolved, no longer on insulin drip. Patient not eating, having hypoglycemia episodes on Lantus 20 units Plan: - Lantus to 10 units with ongoing sliding scale, regular insulin q6h per protocol ? Reglan IV 5 mg bid - Will require need insulin regimen upon D/C #Acute kidney injury on chronic kidney disease, improving Pre-renal from dehydration Admission labs: BUN 85, creatinine 3.4 (baseline 1.1?1.3), eGFR 12. Plan: - Strict I&Os. - Daily renal panel to trend BUN, Cr, and electrolytes. - Avoid nephrotoxins - Renally dose meds as appropriate. - Nephrology is following. #History of coronary artery disease - Currently stable, no intervention required at this time. - Will continue home meds when stable. #Primary hypertension - Will continue home meds when stable. #Normocytic Anemia #Acute blood loss Transfused 1 unit of pRBCs on 01/15. Plan: - Monitor CBC - Transfuse if Hgb <7 #Hypercalcemia, resolved #Hyperosmolar hyperglycemic state (resolved) #Shock, likely distributive due to small bowel ischemia (resolved) #Sinus tachycardia (resolved) #Anion gap metabolic acidosis (resolved) #Lactic acidosis (resolved) #Hyperosmolar hypernatremia, resolved #Hyperchloremia, resolved Health Maintenance: Disposition: Tele DVT prophylaxis: Heparin 5000 subQ. GI prophylaxis: Pantoprazole 40mg IV BID. Diet: clear fluids CODE STATUS: FULL CODE This case was discussed with my attending physician, Dr. Murry, and senior resident, Dr Benoit. José Ritter, DO PGY I Attending Provider Attestation/Addendum I have examined the patient, reviewed labs and imaging findings, discussed the case with the resident(s), and reviewed entered orders. I agree with the plan of care as outlined in this note, with these additional summaries/recommendations: Patient and patient's family seen at bedside. Patient was planned for EGD overnight although IV access was lost prior to her procedure and was not able to be obtained at that time. After multiple attempts overnight, we were able to reestablish IV access earlier this morning. Patient will go for EGD today for dysphagia and failure to thrive. CT also showing esophagitis which may be related to bisphosphonates. Patient continues to have little to no oral intake. Continue PPN as patient is tolerating well. CT of abdomen and pelvis showed postoperative changes and no abscess was identified. Bibasilar pneumonia is still present and completed antibiotic course. General surgery following for ischemic bowel s/p resection. Patient has uncontrolled diabetes mellitus type 2 with A1c 13.7%. Diabetic education. Target blood sugar of 140-180 while hospitalized. Patient encouraged to work with physical therapy. Patient has STEVEN on CKD. Avoid nephrotoxic agents and renally dose medications. Patient updated on the plan and in agreement. All questions answered to satisfaction. Please see residents note for additional details and management. Dr. Lovely MD
[2025-02-01] MEDS: INSULIN LISPRO (AdmeLOG) 1 UNIT/0.01 ML UNIT SC (17:03)
[2025-02-01] MEDS: METOCLOPRAMIDE INJ 5 MG/ML VIAL 2 ML IVP (20:18)
[2025-02-02] VITALS (7 sets, daily range): BP systolic 134–157; BP diastolic 51–64; PULSE 79–99; RESP 17–21; TEMP 36.4–37.2; O2SAT 95–97; BMI 24.0
[2025-02-02] MEDS: INSULIN LISPRO (AdmeLOG) 1 UNIT/0.01 ML UNIT SC ×4 (00:20→16:14)
[2025-02-02 05:52] LABS: Basophils # (Auto) 0.0 Thou/mm3 (0.0-0.2); Basophils % (Auto) 0 % (0-2.5); Eosinophils # (Auto) 0.1 Thou/mm3 (0.0-0.5); Eosinophils % (Auto) 1 % (0-10); Hematocrit 24.8 % (36.0-46.0); Immature Granulocytes Auto 0.09 Thou/mm3 (0.00-0.00); Lymphocytes # (Auto) 1.7 Thou/mm3 (1.0-4.8); Lymphocytes % (Auto) 22 % (10-50); Mean Corpuscular HGB Conc 33.9 g/dl (31.0-37.0); Mean Corpuscular Hemoglobin 30.4 pg (25.0-35.0); Mean Corpuscular Volume 90 fL (80-100); Monocytes # (Auto) 0.6 Thou/mm3 (0.0-0.8); Monocytes % (Auto) 7 % (0-12); Neutrophils # (Auto) 5.4 Thou/mm3 (1.8-7.7); Neutrophils % (Auto) 69 % (37-80); Nucleated Red Blood Cell # 0.00 Thou/mm3 (0.00-0.00); Nucleated Red Blood Cell % 0 /100 WBC (0); Platelet Count 464 Thou/mm3 (140-440); RDW Standard Deviation 47.8 fL (36.4-46.3); Red Blood Count 2.76 Miln/mm3 (4.00-5.20); White Blood Count 7.8 Thou/mm3 (3.6-11.0)
[2025-02-02 05:53] LABS: Hemoglobin 8.4 g/dL (12.0-16.0)
[2025-02-02 06:15] LABS: Alanine Aminotransferase 18 U/L (10-49); Albumin, Serum 3.6 gm/dL (3.4-4.8); Albumin/Globulin Ratio 1.6 (1.2-2.2); Alkaline Phosphatase 78 U/L (46-116); Anion Gap 13 (7-16); Aspartate Amino Transferase 18 U/L (0-34); BUN/Creatinine Ratio 32 Ratio (12-20); Bilirubin,Total 0.3 mg/dL (0.3-1.2); Blood Urea Nitrogen 38 mg/dL (9-23); Calcium 8.2 mg/dL (8.3-10.6); Calcium (Corrected) 8.5 mg/dL (8.5-10.1); Carbon Dioxide 17.2 mMol/L (20.0-31.0); Chloride 103 mMol/L (98-107); Creatinine (Component) 1.2 mg/dL (0.6-1.3); Estimated Creatinine Clearance 34.9 mL/min (>60); Globulin 2.2 gm/dL (2.3-3.5); Glucose 335 mg/dL (74-106); Magnesium 2.2 mg/dL (1.6-2.6); Osmolality,Calculated 288 (275-295); Phosphorous 3.1 mg/dL (2.4-5.1); Potassium 4.8 mMol/L (3.4-5.1); Sodium 133 mMol/L (136-145); Total Protein 5.8 gm/dL (5.7-8.2); eGFR 48 See Note
[2025-02-02] MEDS: MULTIVITAMIN 15 ML UDC PO (08:50)
[2025-02-02] MEDS: FOLIC ACID 1 MG TABLET PO (08:50)
[2025-02-02] MEDS: CHOLECALCIFEROL (Vitamin D3) 1,000 IU TABLET 6000 IU PO (08:50)
[2025-02-02] MEDS: VITAMIN B COMPLEX TABLET 1 TAB PO (08:50)
[2025-02-02] MEDS: METOCLOPRAMIDE INJ 5 MG/ML VIAL 2 ML IVP ×2 (08:51→22:20)
[2025-02-02] MEDS: HEPARIN SOD INJ 5000 UNIT/ML VIAL SC ×2 (08:51→22:27)
[2025-02-02] MEDS: INSULIN DEGLUDEC 5 UNIT/0.05 ML (PER 5 UNITS) 10 UNIT SC (08:52)
[2025-02-02] MEDS: THIAMINE 100 MG TABLET PO (09:07)
--- NOTE | 2025-02-02 13:26 | PC.SS ---
Rounding: Pt not eating, DC plan LG pending insurance auth
--- NOTE | 2025-02-02 13:42 | PCS.ST ---
Per family, pt has functional swallowing mechanism with minimal coughing at home; however not consistent. Pt mentioned globus sensation. Per RN, pt is able to swallow pills fine without s/sx of aspiration. Pt dilated 01/31, on D2 diet tolerating well. Per GI report, pt presents with ulcers oozing blood,which could be causing painful swallowing and poor PO intake. Formal swallow evaluation not performed at this time d/t pt recently consuming meal. ORTHOPEDICALLY IMPAIRED TEACHER spoke to MD about MBSS if necessary. ORTHOPEDICALLY IMPAIRED TEACHER will follow up tomorrow as schedule permits.
--- NOTE | 2025-02-02 14:58 | ESPR_ITS ---
<Statement entered by Yuan Benoit MD - 02/03/25 05:57> Patient was seen and examined at bedside. I agree on the assessment and plan on this note as documented by resident José Ritter DO PGY1. 74-year-old female with prolonged hospital course, patient with past medical history of IDDM type II, hypertension, hyperlipidemia and coronary artery disease, admitted for DKA HHS overlap in ICU, found to have bowel perforation underwent small bowel resection and anastomosis, continued complaints of dysphagia underwent EGD which showed esophageal stricture which was dilated by gastroenterology, patient also has multiple esophageal ulcers with oozing blood, started on peptic ulcer disease by gastroenterology, complains of burning pain while swallowing, speech therapy consulted to further stratify dysphagia. Will continue to monitor patient's p.o. intake post EGD intervention, continue PPN for now will consider appetite stimulant. As patient's appetite improves, we will continue to plan towards discharge, plan to discharge patient to [facility] once stable, pending insurance authorization. Case discussed with attending Dr. Yinka Benoit MD PGY-2 Documentation for date of: 02/02/25 Subjective Subjective Interval history: Patient seen and assessed in hospital bed denies any concerning symptoms at this time. Patient denies having any abdominal pain. Patient did not take any of her dinner in after EGD and dilation of a circumferential stenosis yesterday, but was able 60 to 80% of the PUD/bland dysphagia 2 diet offered as breakfast. She complains of burning in her stomach and throat, but has been able to keep the food down. Patient has been n.p.o., and upon nursing checks overnight was found to have infiltrated every IV line established. Will continue PPN at this time. BP as high as 157/51 at 3 AM, otherwise WNL and satting 95% on RA CBC: WBC 7.8, platelet 464H CMP NA 133, eGFR 35 Exam Vital Signs Temp Pulse Resp BP Pulse Ox O2 Del Method O2 Flow Rate 98.5 F 92 19 148/60 H 96 Room Air 4 02/02/25 12:00 02/02/25 12:00 02/02/25 12:00 02/02/25 12:00 02/02/25 12:00 02/02/25 12:00 02/01/25 14:35 FiO2 30 01/27/25 19:00 Narrative Exam General: Elderly, frail, awake and alert. Head: Normocephalic, atraumatic. Eyes: Pupils equally round and reactive to light. Anicteric. Blind in left eye. Heart: Regular rate and rhythm, no murmurs. No JVD. Peripheral pulses 2+ and symmetric in all extremities. Lungs: Clear to auscultation bilaterally. Non-labored respirations, symmetric chest rise, no use of accessory muscles. Abdomen: Abdominal binder present. Wound dressing is clear, dry, and intact. Neurologic: No gross neurological deficit, and patient able to move all 4 extremities. Extremities: No clubbing, cyanosis, or edema. Capillary refill <2 seconds. Skin warm to touch, no mottling. bilat UE pitting edema +2, likely 2/2 IV infiltration Skin: No rashes, lesions, or ulcers. Psychiatric: Cooperative, appropriate mood and affect Objective Labs 02/03/25 04:18 02/03/25 04:18 Labs: Laboratory Results - last 24 hr 02/02/25 04:35 WBC 7.8 RBC 2.76 L Hgb 8.4 L Hct 24.8 L MCV 90 MCH 30.4 MCHC 33.9 RDW Std Deviation 47.8 H Plt Count 464 H D Neut % (Auto) 69 Lymph % (Auto) 22 [place] % (Auto) 7 Eos % (Auto) 1 Baso % (Auto) 0 Neut # (Auto) 5.4 Lymph # (Auto) 1.7 [place] # (Auto) 0.6 Eos # (Auto) 0.1 Baso # (Auto) 0.0 Immature Gran # (Auto) 0.09 H Absolute Nucleated RBC 0.00 Immature Gran % 1 H Nucleated RBC % 0 Sodium 133 L Potassium 4.8 Chloride 103 Carbon Dioxide 17.2 L Anion Gap 13 BUN 38 H Creatinine 1.2 Estim Creat Clear Calc 34.9 L eGFR 48 L BUN/Creatinine Ratio 32 H Glucose 335 H D Calculated Osmolality 288 Calcium 8.2 L Corrected Calcium 8.5 Phosphorus 3.1 Magnesium 2.2 Total Bilirubin 0.3 AST 18 ALT 18 Alkaline Phosphatase 78 Total Protein 5.8 Albumin 3.6 Globulin 2.2 L Albumin/Globulin Ratio 1.6 ABG Interpretation ABG results: 01/23/25 01/24/25 01/24/25 17:13 05:00 18:55 ABG pH 7.09 L* ABG pCO2 60 H ABG pO2 46 L* ABG HCO3 18 L ABG O2 Saturation 77 L ABG Base Excess -11 L VBG pH 7.22 L 7.25 L VBG pCO2 37 39 VBG pO2 137 H 43 D VBG Base Excess -12 L -10 L 01/24/25 20:50 ABG pH 7.24 L D ABG pCO2 44 D ABG pO2 129 H D ABG HCO3 19 L ABG O2 Saturation 100 H ABG Base Excess -8 L VBG pH VBG pCO2 VBG pO2 VBG Base Excess Quality Measures Quality Measures VTE prophylaxis Advance care planning discussed with:: patient Assessment & Plan Assessment Current Active Medications: Generic Name Dose Route Start Last Admin Trade Name Freq PRN Reason Stop Dose Admin Acetaminophen 650 mg 01/28/25 11:12 01/29/25 20:23 Acetaminophen 325 Mg Tablet PO 02/27/25 11:11 650 mg Q6H PRN Administration PAIN SCALE 1-3 (mild Dextrose 25 ml 01/25/25 08:42 Dextrose 50%-Water Inj 50 Ml Syringe IV 02/24/25 08:41 Q15MIN PRN BG 50-70 responsive npo pt Dextrose 50 ml 01/25/25 08:42 01/29/25 08:11 Dextrose 50%-Water Inj 50 Ml Syringe IV 02/24/25 08:41 50 ml Q15MIN PRN Administration BG <50 OR BG <70 & pt unresponsive Folic Acid 1 mg 01/28/25 16:30 02/02/25 08:50 Folic Acid 1 Mg Tablet PO 02/27/25 16:29 1 mg QDAY ELVIA Administration Glucagon 1 mg 01/25/25 08:42 Glucagon Inj 1 Mg Vial IM Q15MIN PRN BG <70, and no IV access Heparin Sodium (Porcine) 5,000 unit 01/26/25 21:00 02/02/25 08:51 Heparin Sod Inj 5000 Unit/Ml Vial SC 02/09/25 14:14 5,000 unit Q12HR ELVIA Administration Protocol Fat Emulsion Intravenous 500 mls @ 32 mls/hr 01/29/25 18:00 01/31/25 19:13 Intralipid 20% Iv IV 02/28/25 17:59 Not Given [email or web address] [facility] Sodium Acetate 60 meq/ Calcium 2,060 mls @ 100 mls/hr 02/02/25 11:00 02/02/25 11:04 Gluconate 2 gm/ Multivitamins IV 02/03/25 07:35 100 mls/hr /Minerals 10 ml/ Amino Acids .[id number] ELVIA Administration Insulin Degludec 10 unit 01/30/25 09:00 02/02/25 08:52 Insulin Degludec 5 Unit/0.05 Ml (Per 5 Units) SC 03/01/25 08:59 10 unit QDAY ELVIA Administration Insulin Human Lispro 0 unit 02/02/25 11:08 02/02/25 11:27 Insulin Lispro (Admelog) 1 Unit/0.01 Ml Unit SC 03/02/25 11:59 6 unit Q6HR ELVIA Administration Protocol Labetalol HCl 10 mg 01/26/25 11:53 Labetalol Inj 5 Mg/Ml Vial 20 Ml IVP 02/25/25 11:52 Q3HR PRN Systolic >180 and HR >75 Metoclopramide HCl 5 mg 02/01/25 21:00 02/02/25 08:51 Metoclopramide Inj 5 Mg/Ml Vial 2 Ml IVP 03/03/25 20:59 5 mg Q12HR ELVIA Administration Protocol Multivitamins/Minerals 15 ml 01/28/25 11:15 02/02/25 08:50 Multivitamin 15 Ml Udc PO 02/27/25 11:14 15 ml QDAY ELVIA Administration Ondansetron HCl 4 mg 01/29/25 16:31 01/31/25 04:27 Ondansetron Odt 4 Mg Tabrap PO 02/27/25 11:11 4 mg Q6HR PRN Administration NAUSEA OR VOMITING Protocol Pantoprazole Sodium 40 mg 01/25/25 09:00 02/02/25 08:51 Pantoprazole Inj 40 Mg Vial IVP 02/24/25 08:59 40 mg BID ELVIA Administration Thiamine HCl 100 mg 01/28/25 16:30 02/02/25 09:07 Thiamine 100 Mg Tablet PO 02/27/25 16:29 100 mg QDAY ELVIA Administration Vitamin B Complex/Vit C/Folic Acid 1 tab 01/28/25 16:30 02/02/25 08:50 Vitamin B Complex Tablet PO 02/27/25 16:29 1 tab QDAY ELVIA Administration Vitamin D 6,000 iu 01/28/25 16:30 02/02/25 08:50 Cholecalciferol (Vitamin D3) 1,000 Iu Tablet PO 02/27/25 16:29 6,000 iu QDAY ELVIA Administration Plan 74-year-old female with medical history significant for insulin-dependent type 2 diabetes, hypertension, hyperlipidemia, and coronary artery disease presenting with hyperosmolar hyperglycemic state (glucose ~1500, Na 170, osmolality 369) complicated by small bowel ischemia requiring emergent exploratory laparotomy for small bowel resection and anastomosis. Patient downgraded from ICU to medical floor on 01/26 for mgx for ongoing issues. #Dysphagia Likely esophageal dysphagia versus oropharyngeal as the patient has symptoms of regurgitation along with nausea and vomiting and no problem initiating swallowing. Patient having dysphagia to both solid and liquids Patient on PPN for having poor oral intake EGD ([id number]) One benign-appearing, circumferential scarring or stenosis was found in the proximal esophagus. Dilation was performed. Many cratered esophageal ulcers oozing blood were found in the middle and lower thirds of the soft. Two biopsies were obtained from the lower third of the esophagus. Diffuse moderate inflammation was found in the entire examined stomach. 2 biopsies were obtained. The second portion of the duodenum was normal. Plan: - GI, Dr Grijalva, consulted, appreciate recs ? Await pathology results ? IV Protonix p.o. 40 mg twice daily ? Reglan IV 5 mg bid ? Advance to peptic ulcer disease diet ? Patient has an 8 cm hiatal hernia that may need surgical evaluation in the future #Small Bowel Ischemia S/P small bowel resection and anastomosis Post-op Day 9 The patient is status post exploratory laparotomy with small bowel resection and anastomosis. Post-operative course has been stable thus far. A large portion of ischemic jejunum and ileum was resected 280cm. The remaining jejunum and ileum were successfully anastomosed. 01/28: Due to a fever overnight, a CT of the abdomen and pelvis was ordered. The CT showed abundant stool in the colon, no bowel obstruction, mild free fluid in the lower right and left abdomen, and no evidence of abdominal or pelvic absces Plan: - Hydromorphone 0.5 mg IV every 4 hours as needed for post-operative pain. - Zofran 4 mg IV every 6 hours as needed for nausea. - Peripheral nutrition, water purifier following - The patient has multiple risk factors for peripheral artery disease, including coronary artery disease and diabetes. Once clinically stable and post-surgery recovery progresses, an outpatient follow-up with vascular surgery will be necessary for further evaluation, including a CTA to assess for peripheral artery disease. #Insulin-dependent type 2 diabetes, uncontrolled #?Gastroparesis Hemoglobin A1c: 13.7. HHS resolved, no longer on insulin drip. Patient on PPN. Plan: - Insulin degludec 32u Qday (home dose) with concurrent sliding scale step 3 ? Reglan IV 5 mg bid - Will require need insulin regimen upon D/C #Acute kidney injury on chronic kidney disease, improving Pre-renal from dehydration Admission labs: BUN 85, creatinine 3.4 (baseline 1.1?1.3), eGFR 12. Plan: - Strict I&Os. - Daily renal panel to trend BUN, Cr, and electrolytes. - Avoid nephrotoxins - Renally dose meds as appropriate. - Nephrology is following. #History of coronary artery disease - Ordered lipid panel, and TG with AM labs - Currently stable, no intervention required at this time. - Will continue home meds when stable. #Primary hypertension - Will continue home meds when stable. #Normocytic Anemia #Acute blood loss Transfused 1 unit of pRBCs on 01/15. Plan: - Monitor CBC - Transfuse if Hgb <7 #Hypercalcemia, resolved #Hyperosmolar hyperglycemic state (resolved) #Shock, likely distributive due to small bowel ischemia (resolved) #Sinus tachycardia (resolved) #Anion gap metabolic acidosis (resolved) #Lactic acidosis (resolved) #Hyperosmolar hypernatremia, resolved #Hyperchloremia, resolved Health Maintenance: Disposition: Tele DVT prophylaxis: Heparin 5000 subQ. GI prophylaxis: Pantoprazole 40mg IV BID. Diet: clear fluids CODE STATUS: FULL CODE This case was discussed with my attending physician, Dr. Murry, and senior resident, Dr Benoit. José Ritter, DO PGY I Attending Provider Attestation/Addendum I have examined the patient, reviewed labs and imaging findings, discussed the case with the resident(s), and reviewed entered orders. I agree with the plan of care as outlined in this note, with these additional summaries/recommendations: Patient and patient's daughter seen at bedside. No acute overnight events. Patient underwent EGD yesterday which revealed esophageal stenosis status post dilation, esophageal ulcers oozing blood, gastritis, and normal duodenum. We will continue Protonix 40 mg twice daily, Reglan 5 mg twice daily, and peptic ulcer diet. Today patient endorses pain with swallowing and odontophagia likely from esophageal ulcers. We will continue PPI and follow-up biopsy results. Possible esophageal findings may be related to bisphosphonates which should be discontinued. We will continue PPN and attempt to advance diet as tolerated. If no improvement we will have to revisit long-term nutritional goals with patient and family. Patient has uncontrolled diabetes mellitus type 2 with A1c 13.7%. Diabetic education. Target blood sugar of 140-180 while hospitalized. Patient encouraged to work with physical therapy. Patient updated on the plan and in agreement. All questions answered to satisfaction. Please see residents note for additional details and management. Dr. Lovely MD
[2025-02-02] MEDS: INSULIN DEGLUDEC 5 UNIT/0.05 ML (PER 5 UNITS) 22 UNIT SC (16:12)
[2025-02-02] MEDS: INSULIN LISPRO (AdmeLOG) 1 UNIT/0.01 ML UNIT 5 UNIT SC (16:13)
--- NOTE | 2025-02-02 16:55 | ESPR_ITS ---
Documentation for date of: 02/02/25 Subjective Subjective Interval history: Improved dysphagia after endoscopic dilatation Patient on dysphagia 2 diet Exam Vital Signs Temp Pulse Resp BP Pulse Ox O2 Del Method O2 Flow Rate 98.6 F 85 18 151/60 H 96 Room Air 4 02/02/25 16:00 02/02/25 16:00 02/02/25 16:00 02/02/25 16:00 02/02/25 16:00 02/02/25 16:00 02/01/25 14:35 FiO2 30 01/27/25 19:00 Objective Labs 02/02/25 04:35 02/02/25 04:35 Labs: Laboratory Results - last 24 hr 02/02/25 04:35 WBC 7.8 RBC 2.76 L Hgb 8.4 L Hct 24.8 L MCV 90 MCH 30.4 MCHC 33.9 RDW Std Deviation 47.8 H Plt Count 464 H D Neut % (Auto) 69 Lymph % (Auto) 22 [place] % (Auto) 7 Eos % (Auto) 1 Baso % (Auto) 0 Neut # (Auto) 5.4 Lymph # (Auto) 1.7 [place] # (Auto) 0.6 Eos # (Auto) 0.1 Baso # (Auto) 0.0 Immature Gran # (Auto) 0.09 H Absolute Nucleated RBC 0.00 Immature Gran % 1 H Nucleated RBC % 0 Sodium 133 L Potassium 4.8 Chloride 103 Carbon Dioxide 17.2 L Anion Gap 13 BUN 38 H Creatinine 1.2 Estim Creat Clear Calc 34.9 L eGFR 48 L BUN/Creatinine Ratio 32 H Glucose 335 H D Calculated Osmolality 288 Calcium 8.2 L Corrected Calcium 8.5 Phosphorus 3.1 Magnesium 2.2 Total Bilirubin 0.3 AST 18 ALT 18 Alkaline Phosphatase 78 Total Protein 5.8 Albumin 3.6 Globulin 2.2 L Albumin/Globulin Ratio 1.6 Impressions Impression: Proximal esophageal stricture status post guidewire savory dilatation [place] 45 and 54 Large hiatal hernia 0.8 cm could be causing additional symptoms of dysphagia may need surgical intervention in the future Gastritis Esophagitis Advance diet as tolerated ABG Interpretation ABG results: 01/23/25 01/24/25 01/24/25 17:13 05:00 18:55 ABG pH 7.09 L* ABG pCO2 60 H ABG pO2 46 L* ABG HCO3 18 L ABG O2 Saturation 77 L ABG Base Excess -11 L VBG pH 7.22 L 7.25 L VBG pCO2 37 39 VBG pO2 137 H 43 D VBG Base Excess -12 L -10 L 01/24/25 20:50 ABG pH 7.24 L D ABG pCO2 44 D ABG pO2 129 H D ABG HCO3 19 L ABG O2 Saturation 100 H ABG Base Excess -8 L VBG pH VBG pCO2 VBG pO2 VBG Base Excess Assessment & Plan Time Spent With Patient Time: Total time spent is greater than 50% in coordination of care (as documented) at patient's floor/unit and/or counseling patient:
[2025-02-03] VITALS (10 sets, daily range): BP systolic 119–166; BP diastolic 59–85; PULSE 72–103; RESP 15–20; TEMP 36.8–37.3; O2SAT 93–97; BMI 23.7
[2025-02-03] MEDS: INSULIN LISPRO (AdmeLOG) 1 UNIT/0.01 ML UNIT SC ×3 (00:22→11:18)
[2025-02-03 05:38] LABS: Basophils # (Auto) 0.0 Thou/mm3 (0.0-0.2); Basophils % (Auto) 1 % (0-2.5); Eosinophils # (Auto) 0.1 Thou/mm3 (0.0-0.5); Eosinophils % (Auto) 1 % (0-10); Hematocrit 24.7 % (36.0-46.0); Immature Granulocytes Auto 0.07 Thou/mm3 (0.00-0.00); Lymphocytes # (Auto) 1.8 Thou/mm3 (1.0-4.8); Lymphocytes % (Auto) 26 % (10-50); Mean Corpuscular HGB Conc 32.8 g/dl (31.0-37.0); Mean Corpuscular Hemoglobin 29.8 pg (25.0-35.0); Mean Corpuscular Volume 91 fL (80-100); Monocytes # (Auto) 0.8 Thou/mm3 (0.0-0.8); Monocytes % (Auto) 11 % (0-12); Neutrophils # (Auto) 4.2 Thou/mm3 (1.8-7.7); Neutrophils % (Auto) 60 % (37-80); Nucleated Red Blood Cell # 0.00 Thou/mm3 (0.00-0.00); Nucleated Red Blood Cell % 0 /100 WBC (0); Platelet Count 545 Thou/mm3 (140-440); RDW Standard Deviation 47.5 fL (36.4-46.3); Red Blood Count 2.72 Miln/mm3 (4.00-5.20); White Blood Count 7.0 Thou/mm3 (3.6-11.0)
[2025-02-03 05:39] LABS: Hemoglobin 8.1 g/dL (12.0-16.0)
[2025-02-03 06:03] LABS: Alanine Aminotransferase 15 U/L (10-49); Albumin, Serum 3.2 gm/dL (3.4-4.8); Albumin/Globulin Ratio 1.5 (1.2-2.2); Alkaline Phosphatase 70 U/L (46-116); Anion Gap 9 (7-16); Aspartate Amino Transferase 13 U/L (0-34); BUN/Creatinine Ratio 39 Ratio (12-20); Bilirubin,Total 0.2 mg/dL (0.3-1.2); Blood Urea Nitrogen 43 mg/dL (9-23); Calcium 8.4 mg/dL (8.3-10.6); Calcium (Corrected) 9.0 mg/dL (8.5-10.1); Carbon Dioxide 20.3 mMol/L (20.0-31.0); Cardiac Risk Estimate 5.5 RATIO (3.7-5.6); Chloride 104 mMol/L (98-107); Cholesterol 122 mg/dL (132-200); Creatinine (Component) 1.1 mg/dL (0.6-1.3); Estimated Creatinine Clearance 37.8 mL/min (>60); Globulin 2.1 gm/dL (2.3-3.5); Glucose 347 mg/dL (74-106); HDL Cholesterol 22 mg/dL (40-60); LDL Cholesterol,Calculated 56 mg/dL (0-130); Magnesium 1.8 mg/dL (1.6-2.6); Osmolality,Calculated 291 (275-295); Phosphorous 2.4 mg/dL (2.4-5.1); Potassium 4.3 mMol/L (3.4-5.1); Sodium 133 mMol/L (136-145); Total Protein 5.3 gm/dL (5.7-8.2); Triglycerides 218 mg/dL (30-150); eGFR 53 See Note
[2025-02-03] MEDS: THIAMINE 100 MG TABLET PO (08:42)
[2025-02-03] MEDS: VITAMIN B COMPLEX TABLET 1 TAB PO (08:42)
[2025-02-03] MEDS: CHOLECALCIFEROL (Vitamin D3) 1,000 IU TABLET 6000 IU PO (08:43)
[2025-02-03] MEDS: HEPARIN SOD INJ 5000 UNIT/ML VIAL SC ×2 (08:43→20:31)
[2025-02-03] MEDS: FOLIC ACID 1 MG TABLET PO (08:43)
[2025-02-03] MEDS: METOCLOPRAMIDE INJ 5 MG/ML VIAL 2 ML IVP ×2 (08:44→20:30)
[2025-02-03] MEDS: MULTIVITAMIN 15 ML UDC PO (08:44)
[2025-02-03] MEDS: AMINO ACIDS 4.25 %/D5W 1,000 ML 100 ML IV (08:44)
[2025-02-03] MEDS: INSULIN DEGLUDEC 5 UNIT/0.05 ML (PER 5 UNITS) 32 UNIT SC (08:46)
--- NOTE | 2025-02-03 08:51 | PC.SS ---
Follow up note: Pt not eating. Continue PPN. Pt will d/c to [facility] and will require insurance authorization.
[2025-02-03] MEDS: CHLORHEXIDINE MOUTHWASH 0.12% UDC 15 ML PO (11:11)
--- NOTE | 2025-02-03 11:37 | PC.SS ---
Addendum entered by Abbi Talamantes 02/03/25 14:55: SS received call from Diana Pacheco from [employer] who states she has been contacted by case making machine operator, Marge and [employer] is contracted with patient's health insurance. Addendum entered by Abbi Talamantes 02/03/25 14:25: ALEKSANDAR has attempted to contact Olesya, used equipment sales representative from patient's health insurance but was unsuccessful. SS left voicemail with SS contact phone# and time inquiry was faxed for insurance authorization to [employer]. Addendum entered by Abbi Talamantes 02/03/25 11:56: has sent updated inquiry to [employer] using [employer]. Original Note: SS has spoken to Olesya, used equipment sales representative from patient's health insurance, phone# [phone] who is aware pt is requiring insurance authorization for [employer]. Per Olesya, she is unable to find pt in their system and her request is for to fax inquiry. has faxed inquiry to patient's health insurance. has also provided confirmation call number [phone] provided from [employer].
--- NOTE | 2025-02-03 11:59 | PC.NURSE ---
bladder scan shows 9ml and checked patient diaper its full heavy pt said she doesnot have a urge to urinate pt is incontinent.
--- NOTE | 2025-02-03 15:25 | ESPR_ITS ---
<Statement entered by Yuan Benoit MD - 02/03/25 20:42> Patient was seen and examined at bedside. I agree on the assessment and plan on this note as documented by resident José Ritter DO PGY1. 74-year-old female with past medical history as below admitted for HHS/DKA overlap to ICU, hospital course further complicated by small bowel ischemia patient is status post small bowel resection and anastomosis postop day 10, patient continues to complain of pain while swallowing, significant odynophagia, case discussed with speech therapy and dietitian, patient will be started on sick small meals of peptic ulcer disease carb consistent dysphagia 1 pur?ed diet. Will continue Reglan as prescribed, will use chlorhexidine and lozenges to provide some relief. Will continue to monitor oral intake. Wound care and general surgery following for postop wound care. Will continue insulin degludec, will schedule insulin on additional sliding scale to maintain appropriate diabetes control. Further plan is to discharge patient to [facility] facility once stable. Case discussed with attending Dr. Yinka Benoit MD PGY-2 Documentation for date of: 02/03/25 Subjective Subjective Interval history: Patient was seen and examined at bedside. No acute events took place overnight. Patient denies having any abdominal pain, although reports burning and irritation down her esophagus with swallowing food. Her appetite is low. This morning patient took only few small bites of her breakfast, and according to speech therapy at bedside was regurgitating. Speech therapy recommends downgrading her PUD diet to dysphagia 1 pur?e, consistent carb 6 small meals daily. Exam Vital Signs Temp Pulse Resp BP Pulse Ox O2 Del Method O2 Flow Rate 98.5 F 85 18 154/61 H 94 L Room Air 4 02/03/25 11:28 02/03/25 12:00 02/03/25 11:28 02/03/25 11:28 02/03/25 11:28 02/03/25 11:02/01/25 14:35 FiO2 30 01/27/25 19:00 Narrative Exam General: Elderly, frail, awake and alert. Head: Normocephalic, atraumatic. Eyes: Pupils equally round and reactive to light. Anicteric. Blind in left eye. Heart: Regular rate and rhythm, no murmurs. No JVD. Peripheral pulses 2+ and symmetric in all extremities. Lungs: Clear to auscultation bilaterally. Non-labored respirations, symmetric chest rise, no use of accessory muscles. Abdomen: Abdominal binder present. Wound dressing is clear, dry, and intact. Neurologic: No gross neurological deficit, and patient able to move all 4 extremities. Extremities: No clubbing, cyanosis, or edema. Capillary refill <2 seconds. Skin warm to touch, no mottling. bilat UE pitting edema +2, likely 2/2 IV infiltration Skin: No rashes, lesions, or ulcers. Psychiatric: Cooperative, appropriate mood and affect Objective Labs 02/03/25 04:18 02/03/25 04:18 Labs: Laboratory Results - last 24 hr 02/03/25 04:18 WBC 7.0 RBC 2.72 L Hgb 8.1 L Hct 24.7 L MCV 91 MCH 29.8 MCHC 32.8 RDW Std Deviation 47.5 H Plt Count 545 H D Neut % (Auto) 60 Lymph % (Auto) 26 [place] % (Auto) 11 Eos % (Auto) 1 Baso % (Auto) 1 Neut # (Auto) 4.2 Lymph # (Auto) 1.8 [place] # (Auto) 0.8 Eos # (Auto) 0.1 Baso # (Auto) 0.0 Immature Gran # (Auto) 0.07 H Absolute Nucleated RBC 0.00 Immature Gran % 1 H Nucleated RBC % 0 Sodium 133 L Potassium 4.3 D Chloride 104 Carbon Dioxide 20.3 Anion Gap 9 BUN 43 H Creatinine 1.1 Estim Creat Clear Calc 37.8 L eGFR 53 L BUN/Creatinine Ratio 39 H Glucose 347 H Calculated Osmolality 291 Calcium 8.4 Corrected Calcium 9.0 Phosphorus 2.4 Magnesium 1.8 Total Bilirubin 0.2 L AST 13 ALT 15 Alkaline Phosphatase 70 Total Protein 5.3 L Albumin 3.2 L Globulin 2.1 L Albumin/Globulin Ratio 1.5 Triglycerides 218 H Cholesterol 122 L LDL Cholesterol, Calc 56 HDL Cholesterol 22 L Cholesterol/HDL Ratio 5.5 ABG Interpretation ABG results: 01/23/25 01/24/25 01/24/25 17:13 05:00 18:55 ABG pH 7.09 L* ABG pCO2 60 H ABG pO2 46 L* ABG HCO3 18 L ABG O2 Saturation 77 L ABG Base Excess -11 L VBG pH 7.22 L 7.25 L VBG pCO2 37 39 VBG pO2 137 H 43 D VBG Base Excess -12 L -10 L 01/24/25 20:50 ABG pH 7.24 L D ABG pCO2 44 D ABG pO2 129 H D ABG HCO3 19 L ABG O2 Saturation 100 H ABG Base Excess -8 L VBG pH VBG pCO2 VBG pO2 VBG Base Excess Quality Measures Quality Measures VTE prophylaxis Advance care planning discussed with:: patient Assessment & Plan Assessment Current Active Medications: Generic Name Dose Route Start Last Admin Trade Name Freq PRN Reason Stop Dose Admin Acetaminophen 650 mg 01/28/25 11:12 01/29/25 20:23 Acetaminophen 325 Mg Tablet PO 02/27/25 11:11 650 mg Q6H PRN Administration PAIN SCALE 1-3 (mild Benzocaine 1 lozenge 02/03/25 10:21 Benzocaine/Menthol 1 Lozenge PO 03/05/25 10:20 Q4HR PRN throat pain Dextrose 25 ml 01/25/25 08:42 Dextrose 50%-Water Inj 50 Ml Syringe IV 02/24/25 08:41 Q15MIN PRN BG 50-70 responsive npo pt Dextrose 50 ml 01/25/25 08:42 01/29/25 08:11 Dextrose 50%-Water Inj 50 Ml Syringe IV 02/24/25 08:41 50 ml Q15MIN PRN Administration BG <50 OR BG <70 & pt unresponsive Folic Acid 1 mg 01/28/25 16:30 02/03/25 08:43 Folic Acid 1 Mg Tablet PO 02/27/25 16:29 1 mg QDAY ELVIA Administration Glucagon 1 mg 01/25/25 08:42 Glucagon Inj 1 Mg Vial IM Q15MIN PRN BG <70, and no IV access Heparin Sodium (Porcine) 5,000 unit 01/26/25 21:00 02/03/25 08:43 Heparin Sod Inj 5000 Unit/Ml Vial SC 02/09/25 14:14 5,000 unit Q12HR ELVIA Administration Protocol Fat Emulsion Intravenous 500 mls @ 32 mls/hr 01/29/25 18:00 01/31/25 19:13 Intralipid 20% Iv IV 02/28/25 17:59 Not Given [email or web address] [email or web address] Amino Acids 1,000 mls @ 100 mls/hr 02/03/25 07:36 02/03/25 08:44 Clinimix 4.25/5 IV 02/03/25 17:35 100 mls/hr .Q10H ELVIA Administration Potassium Phosphate 24 mmol/ 2,042 mls @ 100 mls/hr 02/03/25 18:00 Magnesium Sulfate 2 gm/ IV 02/04/25 14:25 Calcium Gluconate 1 gm/ Sodium .[id number] ELVIA Acetate 40 meq/ Amino Acids Insulin Degludec 32 unit 02/03/25 09:00 02/03/25 08:46 Insulin Degludec 5 Unit/0.05 Ml (Per 5 Units) SC 03/05/25 08:59 32 unit QDAY ELVIA Administration Insulin Human Regular 0 unit 02/03/25 14:15 02/03/25 14:34 Insulin Hum Regular 1 Unit/0.01 Ml (Per Unit) SC 03/05/25 14:14 Not Given Q6HR ELVIA Protocol Labetalol HCl 10 mg 01/26/25 11:53 Labetalol Inj 5 Mg/Ml Vial 20 Ml IVP 02/25/25 11:52 Q3HR PRN Systolic >180 and HR >75 Metoclopramide HCl 5 mg 02/01/25 21:00 02/03/25 08:44 Metoclopramide Inj 5 Mg/Ml Vial 2 Ml IVP 03/03/25 20:59 5 mg Q12HR ELVIA Administration Protocol Multivitamins/Minerals 15 ml 01/28/25 11:15 02/03/25 08:44 Multivitamin 15 Ml Udc PO 02/27/25 11:14 15 ml QDAY ELVIA Administration Ondansetron HCl 4 mg 01/29/25 16:31 01/31/25 04:27 Ondansetron Odt 4 Mg Tabrap PO 02/27/25 11:11 4 mg Q6HR PRN Administration NAUSEA OR VOMITING Protocol Pantoprazole Sodium 40 mg 01/25/25 09:00 02/03/25 08:43 Pantoprazole Inj 40 Mg Vial IVP 02/24/25 08:59 40 mg BID ELVIA Administration Thiamine HCl 100 mg 01/28/25 16:30 02/03/25 08:42 Thiamine 100 Mg Tablet PO 02/27/25 16:29 100 mg QDAY ELVIA Administration Vitamin B Complex/Vit C/Folic Acid 1 tab 01/28/25 16:30 02/03/25 08:42 Vitamin B Complex Tablet PO 02/27/25 16:29 1 tab QDAY ELVIA Administration Vitamin D 6,000 iu 01/28/25 16:30 02/03/25 08:43 Cholecalciferol (Vitamin D3) 1,000 Iu Tablet PO 02/27/25 16:29 6,000 iu QDAY ELVIA Administration Plan 74-year-old female with medical history significant for insulin-dependent type 2 diabetes, hypertension, hyperlipidemia, and coronary artery disease presenting with hyperosmolar hyperglycemic state (glucose ~1500, Na 170, osmolality 369) complicated by small bowel ischemia requiring emergent exploratory laparotomy for small bowel resection and anastomosis. Patient downgraded from ICU to medical floor on 01/26 for mgx for ongoing issues. #Dysphagia Likely esophageal dysphagia versus oropharyngeal as the patient has symptoms of regurgitation along with nausea and vomiting and no problem initiating swallowing. Patient having dysphagia to both solid and liquids, regurgitates intake even after EGD dilation of an esophageal stricture (02/03). Patient on PPN for having poor oral intake/low appetite EGD ([id number]) One benign-appearing, circumferential scarring or stenosis was found in the proximal esophagus. Dilation was performed. Many cratered esophageal ulcers oozing blood were found in the middle and lower thirds of the soft. Two biopsies were obtained from the lower third of the esophagus. Diffuse moderate inflammation was found in the entire examined stomach. 2 biopsies were obtained. The second portion of the duodenum was normal. According to Dr Grijalva, Large hiatal hernia 0.8 cm could be causing additional symptoms of dysphagia may need surgical intervention in the future. Plan: - 6 small meals of PUD, consistent carb, dysphagia 1 pureed daily - Benzocaine/menthol lozenge PO Q4h PRN throat pain - GI, Dr Grijalva, consulted, appreciate recs ? IV Protonix p.o. 40 mg twice daily ? Reglan IV 5 mg bid ? Await pathology results ? Patient has an 8 cm hiatal hernia that may need surgical evaluation in the future #Small Bowel Ischemia S/P small bowel resection and anastomosis Post-op Day 10 The patient is status post exploratory laparotomy with small bowel resection and anastomosis. Post-operative course has been stable thus far. A large portion of ischemic jejunum and ileum was resected 280cm. The remaining jejunum and ileum were successfully anastomosed. CT abdomen (01/28) showed no bowel obstruction, and no evidence of abdominal or pelvic abscess Plan: - Hydromorphone 0.5 mg IV every 4 hours as needed for post-operative pain. - Zofran 4 mg IV every 6 hours as needed for nausea. - Peripheral nutrition, rewinder operator following, - The patient has multiple risk factors for peripheral artery disease, including coronary artery disease and diabetes. Once clinically stable and post-surgery recovery progresses, an outpatient follow-up with vascular surgery will be necessary for further evaluation, including a CTA to assess for peripheral artery disease. #Insulin-dependent type 2 diabetes, uncontrolled #?Gastroparesis Hemoglobin A1c: 13.7. HHS resolved, no longer on insulin drip. Patient on PPN. goal of blood glc 140-180 while hospitalized. Plan: - insulin regular sliding scale step 2 on top of scheduled 6u Q6h - Insulin degludec 32u Qday (home dose) ? Reglan IV 5 mg bid - Will require need insulin regimen upon D/C #Acute kidney injury on chronic kidney disease, improving Pre-renal from dehydration Admission labs: BUN 85, creatinine 3.4 (baseline 1.1?1.3), eGFR 12. Plan: - LR IV 1L @50mL/h - Strict I&Os. - Daily renal panel to trend BUN, Cr, and electrolytes. - Avoid nephrotoxins - Renally dose meds as appropriate. - Nephrology is following. #History of coronary artery disease - Ordered lipid panel, and TG with AM labs - Currently stable, no intervention required at this time. - Will continue home meds when stable. #Primary hypertension - Will continue home meds when stable. #Normocytic Anemia #Acute blood loss Transfused 1 unit of pRBCs on 01/15. Plan: - Monitor CBC - Transfuse if Hgb <7 #Hypercalcemia, resolved #Hyperosmolar hyperglycemic state (resolved) #Shock, likely distributive due to small bowel ischemia (resolved) #Sinus tachycardia (resolved) #Anion gap metabolic acidosis (resolved) #Lactic acidosis (resolved) #Hyperosmolar hypernatremia, resolved #Hyperchloremia, resolved Health Maintenance: Disposition: Med Tele, We will continue PPN and attempt to advance diet as tolerated. If no improvement we will have to revisit long-term nutritional goals with patient and family. DVT prophylaxis: Heparin 5000 subQ. GI prophylaxis: Pantoprazole 40mg IV BID. Diet: clear fluids CODE STATUS: FULL CODE This case was discussed with my attending physician, Dr. Murry, and senior resident, Dr Benoit. José Ritter, DO PGY I Attending Provider Attestation/Addendum I have examined the patient, reviewed labs and imaging findings, discussed the case with the resident(s), and reviewed entered orders. I agree with the plan of care as outlined in this note, with these additional summaries/recommendations: Patient seen at bedside. No acute overnight events. She continues to endorse odontophagia and questionable if this has improved. She has consumed approximately 25% of her last 2 meals. We will give Peridex mouthwash today to see if helps with pain. Patient underwent EGD which revealed esophageal stenosis status post dilation, esophageal ulcers oozing blood, gastritis, and normal duodenum. We will continue Protonix 40 mg twice daily, Reglan 5 mg twice daily, and peptic ulcer diet. Today patient endorses pain with swallowing and odontophagia likely from esophageal ulcers. We will continue PPI and follow-up biopsy results. Possible esophageal findings may be related to bisphosphonates which should be discontinued. We will continue PPN and attempt to advance diet as tolerated. If no improvement we will have to revisit long-term nutritional goals with patient and family. Patient has uncontrolled diabetes mellitus type 2 with A1c 13.7%. Diabetic education. Target blood sugar of 140-180 while hospitalized. Patient encouraged to work with physical therapy. S/P ex lap & small bowel resection and anastomosis on 01/24/25 for small bowel ischemia. Patient updated on the plan and in agreement. All questions answered to satisfaction. Please see residents note for additional details and management. Dr. Lovely MD
[2025-02-03] MEDS: INSULIN HUM REGULAR 1 UNIT/0.01 ML (PER UNIT) SC ×2 (17:05→23:46)
[2025-02-03] MEDS: INSULIN HUM REGULAR 1 UNIT/0.01 ML (PER UNIT) 6 UNIT SC ×2 (17:05→23:47)
[2025-02-03] MEDS: FAT EMULSIONS 20% IV 500 ML 32 ML IV (17:07)
--- NOTE | 2025-02-03 17:28 | ESPR_ITS ---
Documentation for date of: 02/03/25 Subjective Subjective Interval history: Patient evaluated patient on dysphagia 2 diet able to swallow Exam Vital Signs Temp Pulse Resp BP Pulse Ox O2 Del Method O2 Flow Rate 98.5 F 85 18 154/61 H 94 L Room Air 4 02/03/25 11:28 02/03/25 12:00 02/03/25 11:28 02/03/25 11:28 02/03/25 11:28 02/03/25 11:28 02/01/25 14:35 FiO2 30 01/27/25 19:00 Objective Labs 02/03/25 04:18 02/03/25 04:18 Labs: Laboratory Results - last 24 hr 02/03/25 04:18 WBC 7.0 RBC 2.72 L Hgb 8.1 L Hct 24.7 L MCV 91 MCH 29.8 MCHC 32.8 RDW Std Deviation 47.5 H Plt Count 545 H D Neut % (Auto) 60 Lymph % (Auto) 26 [place] % (Auto) 11 Eos % (Auto) 1 Baso % (Auto) 1 Neut # (Auto) 4.2 Lymph # (Auto) 1.8 [place] # (Auto) 0.8 Eos # (Auto) 0.1 Baso # (Auto) 0.0 Immature Gran # (Auto) 0.07 H Absolute Nucleated RBC 0.00 Immature Gran % 1 H Nucleated RBC % 0 Sodium 133 L Potassium 4.3 D Chloride 104 Carbon Dioxide 20.3 Anion Gap 9 BUN 43 H Creatinine 1.1 Estim Creat Clear Calc 37.8 L eGFR 53 L BUN/Creatinine Ratio 39 H Glucose 347 H Calculated Osmolality 291 Calcium 8.4 Corrected Calcium 9.0 Phosphorus 2.4 Magnesium 1.8 Total Bilirubin 0.2 L AST 13 ALT 15 Alkaline Phosphatase 70 Total Protein 5.3 L Albumin 3.2 L Globulin 2.1 L Albumin/Globulin Ratio 1.5 Triglycerides 218 H Cholesterol 122 L LDL Cholesterol, Calc 56 HDL Cholesterol 22 L Cholesterol/HDL Ratio 5.5 Impressions Impression: Dysphagia improved after endoscopic dilatation of the proximal esophagus stricture Continue current management ABG Interpretation ABG results: 01/23/25 01/24/25 01/24/25 17:13 05:00 18:55 ABG pH 7.09 L* ABG pCO2 60 H ABG pO2 46 L* ABG HCO3 18 L ABG O2 Saturation 77 L ABG Base Excess -11 L VBG pH 7.22 L 7.25 L VBG pCO2 37 39 VBG pO2 137 H 43 D VBG Base Excess -12 L -10 L 01/24/25 20:50 ABG pH 7.24 L D ABG pCO2 44 D ABG pO2 129 H D ABG HCO3 19 L ABG O2 Saturation 100 H ABG Base Excess -8 L VBG pH VBG pCO2 VBG pO2 VBG Base Excess Assessment & Plan Time Spent With Patient Time: Total time spent is greater than 50% in coordination of care (as documented) at patient's floor/unit and/or counseling patient:
[2025-02-03] MEDS: RINGERS LACTATED 1000 ML 1,000 ML 50 ML IV (18:05)
--- NOTE | 2025-02-03 19:00 | PC.NURSE ---
During shift change pt noted to have been voiding often no no retention noted per report, Dr. Benoit contacted by Armando HODGES and up on unit, ok to dc the bladder scans on pt.
[2025-02-04] VITALS (11 sets, daily range): BP systolic 92–160; BP diastolic 43–62; PULSE 55–106; RESP 17–26; TEMP 36.8–37.2; O2SAT 96–99; BMI 24.3
[2025-02-04] MEDS: INSULIN HUM REGULAR 1 UNIT/0.01 ML (PER UNIT) 6 UNIT SC (05:24)
[2025-02-04] MEDS: INSULIN HUM REGULAR 1 UNIT/0.01 ML (PER UNIT) SC ×4 (05:24→23:21)
[2025-02-04 06:45] LABS: Alanine Aminotransferase 16 U/L (10-49); Albumin, Serum 3.5 gm/dL (3.4-4.8); Albumin/Globulin Ratio 1.7 (1.2-2.2); Alkaline Phosphatase 66 U/L (46-116); Anion Gap 12 (7-16); Aspartate Amino Transferase 18 U/L (0-34); BUN/Creatinine Ratio 34 Ratio (12-20); Bilirubin,Total < 0.2 mg/dL (0.3-1.2); Blood Urea Nitrogen 34 mg/dL (9-23); Calcium 8.6 mg/dL (8.3-10.6); Calcium (Corrected) 9.0 mg/dL (8.5-10.1); Carbon Dioxide 17.9 mMol/L (20.0-31.0); Chloride 103 mMol/L (98-107); Creatinine (Component) 1.0 mg/dL (0.6-1.3); Estimated Creatinine Clearance 41.8 mL/min (>60); Globulin 2.1 gm/dL (2.3-3.5); Glucose 323 mg/dL (74-106); Osmolality,Calculated 285 (275-295); Potassium 4.3 mMol/L (3.4-5.1); Sodium 133 mMol/L (136-145); Total Protein 5.6 gm/dL (5.7-8.2); eGFR 60 See Note
[2025-02-04 09:29] LABS: Basophils # (Auto) 0.0 Thou/mm3 (0.0-0.2); Basophils % (Auto) 1 % (0-2.5); Eosinophils # (Auto) 0.1 Thou/mm3 (0.0-0.5); Eosinophils % (Auto) 1 % (0-10); Hematocrit 24.7 % (36.0-46.0); Immature Granulocytes Auto 0.08 Thou/mm3 (0.00-0.00); Lymphocytes # (Auto) 1.7 Thou/mm3 (1.0-4.8); Lymphocytes % (Auto) 28 % (10-50); Mean Corpuscular HGB Conc 34.0 g/dl (31.0-37.0); Mean Corpuscular Hemoglobin 30.9 pg (25.0-35.0); Mean Corpuscular Volume 91 fL (80-100); Monocytes # (Auto) 0.7 Thou/mm3 (0.0-0.8); Monocytes % (Auto) 12 % (0-12); Neutrophils # (Auto) 3.6 Thou/mm3 (1.8-7.7); Neutrophils % (Auto) 58 % (37-80); Nucleated Red Blood Cell # 0.04 Thou/mm3 (0.00-0.00); Nucleated Red Blood Cell % 1 /100 WBC (0); Platelet Count 576 Thou/mm3 (140-440); RDW Standard Deviation 48.8 fL (36.4-46.3); Red Blood Count 2.72 Miln/mm3 (4.00-5.20); White Blood Count 6.2 Thou/mm3 (3.6-11.0)
[2025-02-04 09:36] LABS: Hemoglobin 8.4 g/dL (12.0-16.0)
--- NOTE | 2025-02-04 10:42 | XR_ITS ---
Examination: Abdomen AP single view Technique: AP portable supine abdomen, single view Exam date and time: 02/04/2025, 11:35 a.m. INDICATION: Constipation for 3 days. COMPARISON: Abdominal radiographs 01/04/2025 FINDINGS: Single portable AP view of the abdomen shows a moderate to large amount of fecal matter within the redundant colon, appearing at least mildly improved in the interim. Particular, there is notably less dense fecal matter in the right hemicolon. Additionally, there is significantly less diffuse small bowel distention compared to prior study and the stomach is less distended as well. No free air is identified. Surgical clips in the right upper quadrant are compatible with cholecystectomy. Vertically oriented midline cornelio are now in place. Probable bibasilar atelectasis. IMPRESSION: Radiographic findings compatible with clinical constipation, with moderate to large fecal burden throughout the redundant colon, at least mildly improved compared to 01/24/2025, and with interval regression of previously visualized prominent diffuse small bowel distention and gastric distention. No free air.
[2025-02-04] MEDS: HEPARIN SOD INJ 5000 UNIT/ML VIAL SC ×2 (10:55→20:09)
[2025-02-04] MEDS: INSULIN DEGLUDEC 5 UNIT/0.05 ML (PER 5 UNITS) 40 UNIT SC (10:56)
[2025-02-04] MEDS: METOCLOPRAMIDE INJ 5 MG/ML VIAL 2 ML IVP ×2 (10:58→20:11)
[2025-02-04] MEDS: CHOLECALCIFEROL (Vitamin D3) 1,000 IU TABLET 6000 IU PO (11:10)
[2025-02-04] MEDS: VITAMIN B COMPLEX TABLET 1 TAB PO (11:11)
[2025-02-04] MEDS: FOLIC ACID 1 MG TABLET PO (11:11)
[2025-02-04] MEDS: THIAMINE 100 MG TABLET PO (11:11)
[2025-02-04] MEDS: SUCRALFATE SUSP 1 GM/10 ML UDC PO ×3 (12:20→20:12)
[2025-02-04] MEDS: INSULIN HUM REGULAR 1 UNIT/0.01 ML (PER UNIT) 8 UNIT SC ×3 (12:20→23:21)
--- NOTE | 2025-02-04 15:34 | ESPR_ITS ---
Documentation for date of: 02/04/25 Subjective Subjective Interval history: Overnight: Patient several episodes of vomiting following dinner. Patient seen examined at bedside, resting comfortably. Patient reports poor appetite/discomfort with swallowing. KUB ordered, showed heavy stool burden in colon. Suppositories and enema ordered. Continue to uptitrate insulin for better glucose control. Exam Vital Signs Temp Pulse Resp BP Pulse Ox O2 Del Method O2 Flow Rate 99.0 F 81 18 148/57 H 96 Room Air 4 02/04/25 07:28 02/04/25 12:00 02/04/25 07:28 02/04/25 11:11 02/04/25 07:28 02/04/25 07:28 02/01/25 14:35 FiO2 30 01/27/25 19:00 Narrative Exam General: Elderly, frail, awake and alert. Head: Normocephalic, atraumatic. Eyes: Pupils equally round and reactive to light. Anicteric. Blind in left eye. Heart: Regular rate and rhythm, no murmurs. No JVD. Peripheral pulses 2+ and symmetric in all extremities. Lungs: Clear to auscultation bilaterally. Non-labored respirations, symmetric chest rise, no use of accessory muscles. Abdomen: Abdominal binder present. Wound dressing is clear, dry, and intact. Neurologic: No gross neurological deficit, and patient able to move all 4 extremities. Extremities: No clubbing, cyanosis, or edema. Capillary refill <2 seconds. Skin warm to touch, no mottling. B/L UE pitting edema +2, likely 2/2 IV infiltration Skin: No rashes, lesions, or ulcers. Psychiatric: Cooperative, appropriate mood and affect Objective Labs 02/04/25 05:35 02/04/25 05:35 Labs: Laboratory Results - last 24 hr 02/04/25 05:35 WBC 6.2 RBC 2.72 L Hgb 8.4 L Hct 24.7 L MCV 91 MCH 30.9 MCHC 34.0 RDW Std Deviation 48.8 H Plt Count 576 H D Neut % (Auto) 58 Lymph % (Auto) 28 [place] % (Auto) 12 Eos % (Auto) 1 Baso % (Auto) 1 Neut # (Auto) 3.6 Lymph # (Auto) 1.7 [place] # (Auto) 0.7 Eos # (Auto) 0.1 Baso # (Auto) 0.0 Immature Gran # (Auto) 0.08 H Absolute Nucleated RBC 0.04 H Immature Gran % 1 H Nucleated RBC % 1 H Sodium 133 L Potassium 4.3 Chloride 103 Carbon Dioxide 17.9 L Anion Gap 12 BUN 34 H Creatinine 1.0 Estim Creat Clear Calc 41.8 L eGFR 60 BUN/Creatinine Ratio 34 H Glucose 323 H Calculated Osmolality 285 Calcium 8.6 Corrected Calcium 9.0 Total Bilirubin < 0.2 L AST 18 ALT 16 Alkaline Phosphatase 66 Total Protein 5.6 L Albumin 3.5 Globulin 2.1 L Albumin/Globulin Ratio 1.7 ABG Interpretation ABG results: 01/23/25 01/24/25 01/24/25 17:13 05:00 18:55 ABG pH 7.09 L* ABG pCO2 60 H ABG pO2 46 L* ABG HCO3 18 L ABG O2 Saturation 77 L ABG Base Excess -11 L VBG pH 7.22 L 7.25 L VBG pCO2 37 39 VBG pO2 137 H 43 D VBG Base Excess -12 L -10 L 01/24/25 20:50 ABG pH 7.24 L D ABG pCO2 44 D ABG pO2 129 H D ABG HCO3 19 L ABG O2 Saturation 100 H ABG Base Excess -8 L VBG pH VBG pCO2 VBG pO2 VBG Base Excess Quality Measures Quality Measures VTE prophylaxis Advance care planning discussed with:: patient Assessment & Plan Assessment Current Active Medications: Generic Name Dose Route Start Last Admin Trade Name Freq PRN Reason Stop Dose Admin Acetaminophen 650 mg 01/28/25 11:12 01/29/25 20:23 Acetaminophen 325 Mg Tablet PO 02/27/25 11:11 650 mg Q6H PRN Administration PAIN SCALE 1-3 (mild Benzocaine 1 lozenge 02/03/25 10:21 Benzocaine/Menthol 1 Lozenge PO 03/05/25 10:20 Q4HR PRN throat pain Dextrose 25 ml 01/25/25 08:42 Dextrose 50%-Water Inj 50 Ml Syringe IV 02/24/25 08:41 Q15MIN PRN BG 50-70 responsive npo pt Dextrose 50 ml 01/25/25 08:42 01/29/25 08:11 Dextrose 50%-Water Inj 50 Ml Syringe IV 02/24/25 08:41 50 ml Q15MIN PRN Administration BG <50 OR BG <70 & pt unresponsive Folic Acid 1 mg 01/28/25 16:30 02/04/25 11:11 Folic Acid 1 Mg Tablet PO 02/27/25 16:29 1 mg QDAY ELVIA Administration Glucagon 1 mg 01/25/25 08:42 Glucagon Inj 1 Mg Vial IM Q15MIN PRN BG <70, and no IV access Glycerin 1 each 02/04/25 14:14 Glycerin, Adult 1 Ea Supp RI 03/06/25 14:13 QDAY PRN CONSTIPATION Heparin Sodium (Porcine) 5,000 unit 01/26/25 21:00 02/04/25 10:55 Heparin Sod Inj 5000 Unit/Ml Vial SC 02/09/25 14:14 5,000 unit Q12HR ELVIA Administration Protocol Fat Emulsion Intravenous 500 mls @ 32 mls/hr 01/29/25 18:00 02/03/25 17:07 Intralipid 20% Iv IV 02/28/25 17:59 32 mls/hr [id number] ELVIA Administration Sodium Acetate 60 meq/ Calcium 2,060 mls @ 100 mls/hr 02/04/25 14:26 02/04/25 14:16 Gluconate 2 gm/ Multivitamins IV 02/05/25 11:01 100 mls/hr /Minerals 10 ml/ Amino Acids .[id number] ELVIA Administration Insulin Degludec 40 unit 02/04/25 09:00 02/04/25 10:56 Insulin Degludec 5 Unit/0.05 Ml (Per 5 Units) SC 03/06/25 08:59 40 unit QDAY ELVIA Administration Insulin Human Regular 8 unit 02/04/25 10:39 02/04/25 12:20 Insulin Hum Regular 1 Unit/0.01 Ml (Per Unit) SC 03/06/25 10:38 8 unit Q6HR ELVIA Administration Insulin Human Regular 0 unit 02/04/25 10:39 02/04/25 12:21 Insulin Hum Regular 1 Unit/0.01 Ml (Per Unit) NV 03/05/25 14:14 6 unit Q6HR ELVIA Administration Protocol Labetalol HCl 10 mg 01/26/25 11:53 Labetalol Inj 5 Mg/Ml Vial 20 Ml IVP 02/25/25 11:52 Q3HR PRN Systolic >180 and HR >75 Lisinopril 10 mg 02/04/25 10:15 02/04/25 11:11 Lisinopril 2.5 Mg Tablet PO 03/06/25 10:14 10 mg QDAY ELVIA Administration Metoclopramide HCl 5 mg 02/01/25 21:00 02/04/25 10:58 Metoclopramide Inj 5 Mg/Ml Vial 2 Ml IVP 03/03/25 20:59 5 mg Q12HR ELVIA Administration Protocol Multivitamins/Minerals 15 ml 01/28/25 11:15 02/03/25 08:44 Multivitamin 15 Ml Udc PO 02/27/25 11:14 15 ml On Hold: 02/03/25 16:54 QDAY ELVIA Administration Comment: PARENTERAL NUTRTION ACTIVE Ondansetron HCl 4 mg 01/29/25 16:31 01/31/25 04:27 Ondansetron Odt 4 Mg Tabrap PO 02/27/25 11:11 4 mg Q6HR PRN Administration NAUSEA OR VOMITING Protocol Pantoprazole Sodium 40 mg 01/25/25 09:00 02/04/25 10:51 Pantoprazole Inj 40 Mg Vial IVP 02/24/25 08:59 40 mg BID ELVIA Administration Sucralfate 1 gm 02/04/25 11:30 02/04/25 12:20 Sucralfate Susp 1 Gm/10 Ml Udc PO 03/06/25 11:29 1 gm ACHS ELVIA Administration Thiamine HCl 100 mg 01/28/25 16:30 02/04/25 11:11 Thiamine 100 Mg Tablet PO 02/27/25 16:29 100 mg QDAY ELVIA Administration Vitamin B Complex/Vit C/Folic Acid 1 tab 01/28/25 16:30 02/04/25 11:11 Vitamin B Complex Tablet PO 02/27/25 16:29 1 tab QDAY ELVIA Administration Vitamin D 6,000 iu 01/28/25 16:30 02/04/25 11:10 Cholecalciferol (Vitamin D3) 1,000 Iu Tablet PO 02/27/25 16:29 6,000 iu QDAY ELVIA Administration Plan 74-year-old female with medical history significant for insulin-dependent type 2 diabetes, hypertension, hyperlipidemia, and coronary artery disease presenting with hyperosmolar hyperglycemic state (glucose ~1500, Na 170, osmolality 369) complicated by small bowel ischemia requiring emergent exploratory laparotomy for small bowel resection and anastomosis. Patient downgraded from ICU to medical floor on 01/26 for mgx for ongoing issues. #Dysphagia Likely esophageal dysphagia versus oropharyngeal as the patient has symptoms of regurgitation along with nausea and vomiting and no problem initiating swallowing. Patient having dysphagia to both solid and liquids, regurgitates intake even after EGD dilation of an esophageal stricture (02/03). Patient on PPN for having poor oral intake/low appetite EGD ([id number]) One benign-appearing, circumferential scarring or stenosis was found in the proximal esophagus. Dilation was performed. Many cratered esophageal ulcers oozing blood were found in the middle and lower thirds of the soft. Two biopsies were obtained from the lower third of the esophagus. Diffuse moderate inflammation was found in the entire examined stomach. 2 biopsies were obtained. The second portion of the duodenum was normal. According to Dr Grijalva, Large hiatal hernia 0.8 cm could be causing additional symptoms of dysphagia may need surgical intervention in the future. Plan: - 6 small meals of PUD, consistent carb, dysphagia 1 pureed daily - Benzocaine/menthol lozenge PO Q4h PRN throat pain - GI, Dr Grijalva, consulted, appreciate recs ? IV Protonix p.o. 40 mg twice daily ? Reglan IV 5 mg bid ? Await pathology results ? Patient has an 8 cm hiatal hernia that may need surgical evaluation in the future #Small Bowel Ischemia S/P small bowel resection and anastomosis Post-op Day 11 The patient is status post exploratory laparotomy with small bowel resection and anastomosis. Post-operative course has been stable thus far. A large portion of ischemic jejunum and ileum was resected 280cm. The remaining jejunum and ileum were successfully anastomosed. CT abdomen (01/28) showed no bowel obstruction, and no evidence of abdominal or pelvic abscess Plan: - Hydromorphone 0.5 mg IV every 4 hours as needed for post-operative pain. - Zofran 4 mg IV every 6 hours as needed for nausea. - Peripheral nutrition, security system analyst following, - The patient has multiple risk factors for peripheral artery disease, including coronary artery disease and diabetes. Once clinically stable and post-surgery recovery progresses, an outpatient follow-up with vascular surgery will be necessary for further evaluation, including a CTA to assess for peripheral artery disease. #Insulin-dependent type 2 diabetes, uncontrolled #?Gastroparesis Hemoglobin A1c: 13.7. HHS resolved, no longer on insulin drip. Patient on PPN. goal of blood glc 140-180 while hospitalized. Plan: - insulin regular sliding scale step 2 on top of scheduled 8u Q6h - Insulin degludec 40u Qday ? Reglan IV 5 mg bid - Will require need insulin regimen upon D/C #Constipation Patient has not had bowel movement in several days. KUB ordered, showed extensive burden in colon. Avoiding oral medications patient's dysphagia, recent small bowel surgery. Plan: - Glycerin suppository - Mineral oil enema #Acute kidney injury on chronic kidney disease, improving Pre-renal from dehydration Admission labs: BUN 85, creatinine 3.4 (baseline 1.1?1.3), eGFR 12. Plan: - LR IV 1L @50mL/h x 1 L (completed) - Strict I&Os. - Daily renal panel to trend BUN, Cr, and electrolytes. - Avoid nephrotoxins - Renally dose meds as appropriate. - Nephrology is following. #History of coronary artery disease - Currently stable, no intervention required at this time. - Will continue home meds when stable. #Primary hypertension - Resumed home lisinopril 10 mg daily #Normocytic Anemia #Acute blood loss Transfused 1 unit of pRBCs on 01/15. Plan: - Monitor CBC - Transfuse if Hgb <7 #Hypercalcemia, resolved #Hyperosmolar hyperglycemic state (resolved) #Shock, likely distributive due to small bowel ischemia (resolved) #Sinus tachycardia (resolved) #Anion gap metabolic acidosis (resolved) #Lactic acidosis (resolved) #Hyperosmolar hypernatremia, resolved #Hyperchloremia, resolved Health Maintenance: Disposition: Med Tele, We will continue PPN and attempt to advance diet as tolerated. If no improvement we will have to revisit long-term nutritional goals with patient and family. DVT prophylaxis: Heparin 5000 subQ. GI prophylaxis: Pantoprazole 40mg IV BID. Diet: Pur?ed CODE STATUS: FULL CODE Plan of care discussed with attending Dr. Banerjee. Abdulkadir Medina MD PGY?2 Attending Provider Attestation/Addendum I have discussed and was present for the essential components of the history, physical examination, diagnosis, and treatment plan with the resident. I agree with the patient's care as documented by the resident and amended herein by me. Eladio Banerjee DO. Although this document has been carefully reviewed, there may still be some phonetic and other typographical errors. These errors are purely grammatical due to imperfections in the software program and should not be construed in any way to compromise the substance of the patient's medical care during this visit.
[2025-02-04] MEDS: ONDANSETRON ODT 4 MG TABRAP PO (15:42)
--- NOTE | 2025-02-04 15:53 | PC.SS ---
SS received call [facility] who explained they have received insurance authorization. Diana is aware pt is not ready for d/c. Diana Rausch explained for SS to notify her when pt is medically ready for d/c to change the authorization date.
[2025-02-04] MEDS: GLYCERIN, ADULT 1 EA SUPP 1 EACH PR (16:24)
--- NOTE | 2025-02-04 18:56 | PD.IMPROG ---
Documentation for date of: 02/04/25 Subjective Subjective Interval history: Had episodes of vomiting Patient status post dilatation of the proximal esophagus determined multiple ulcers distal esophagus As well as patient has a large hiatal hernia about 8 cm long that could be causing additional symptoms of dysphagia and gastric outlet obstruction Exam Vital Signs Temp Pulse Resp BP Pulse Ox O2 Del Method O2 Flow Rate 98.5 F 86 26 H 138/43 H 97 Room Air 4 02/04/25 15:00 02/04/25 16:00 02/04/25 15:00 02/04/25 15:00 02/04/25 15:00 02/04/25 15:00 02/01/25 14:35 FiO2 30 01/27/25 19:00 Objective Labs 02/04/25 05:35 02/04/25 05:35 Labs: Laboratory Results - last 24 hr 02/04/25 05:35 WBC 6.2 RBC 2.72 L Hgb 8.4 L Hct 24.7 L MCV 91 MCH 30.9 MCHC 34.0 RDW Std Deviation 48.8 H Plt Count 576 H D Neut % (Auto) 58 Lymph % (Auto) 28 [place] % (Auto) 12 Eos % (Auto) 1 Baso % (Auto) 1 Neut # (Auto) 3.6 Lymph # (Auto) 1.7 [place] # (Auto) 0.7 Eos # (Auto) 0.1 Baso # (Auto) 0.0 Immature Gran # (Auto) 0.08 H Absolute Nucleated RBC 0.04 H Immature Gran % 1 H Nucleated RBC % 1 H Sodium 133 L Potassium 4.3 Chloride 103 Carbon Dioxide 17.9 L Anion Gap 12 BUN 34 H Creatinine 1.0 Estim Creat Clear Calc 41.8 L eGFR 60 BUN/Creatinine Ratio 34 H Glucose 323 H Calculated Osmolality 285 Calcium 8.6 Corrected Calcium 9.0 Total Bilirubin < 0.2 L AST 18 ALT 16 Alkaline Phosphatase 66 Total Protein 5.6 L Albumin 3.5 Globulin 2.1 L Albumin/Globulin Ratio 1.7 Impressions Impression: Dysphagia Large gastric hiatal hernia Multiple ulcers distal esophagus Continue current management ABG Interpretation ABG results: 01/23/25 01/24/25 01/24/25 17:13 05:00 18:55 ABG pH 7.09 L* ABG pCO2 60 H ABG pO2 46 L* ABG HCO3 18 L ABG O2 Saturation 77 L ABG Base Excess -11 L VBG pH 7.22 L 7.25 L VBG pCO2 37 39 VBG pO2 137 H 43 D VBG Base Excess -12 L -10 L 01/24/25 20:50 ABG pH 7.24 L D ABG pCO2 44 D ABG pO2 129 H D ABG HCO3 19 L ABG O2 Saturation 100 H ABG Base Excess -8 L VBG pH VBG pCO2 VBG pO2 VBG Base Excess Assessment & Plan Time Spent With Patient Time: Total time spent is greater than 50% in coordination of care (as documented) at patient's floor/unit and/or counseling patient:
[2025-02-05] VITALS (13 sets, daily range): BP systolic 130–150; BP diastolic 49–69; PULSE 78–110; RESP 16–20; TEMP 35.9–37.3; O2SAT 95–99; BMI 24.3
[2025-02-05] MEDS: INSULIN HUM REGULAR 1 UNIT/0.01 ML (PER UNIT) 8 UNIT SC ×2 (05:55→11:41)
[2025-02-05] MEDS: INSULIN HUM REGULAR 1 UNIT/0.01 ML (PER UNIT) SC ×3 (05:55→18:03)
[2025-02-05 06:24] LABS: Basophils # (Auto) 0.0 Thou/mm3 (0.0-0.2); Basophils % (Auto) 1 % (0-2.5); Eosinophils # (Auto) 0.1 Thou/mm3 (0.0-0.5); Eosinophils % (Auto) 1 % (0-10); Hematocrit 20.5 % (36.0-46.0); Immature Granulocytes Auto 0.19 Thou/mm3 (0.00-0.00); Lymphocytes # (Auto) 1.9 Thou/mm3 (1.0-4.8); Lymphocytes % (Auto) 30 % (10-50); Mean Corpuscular HGB Conc 32.7 g/dl (31.0-37.0); Mean Corpuscular Hemoglobin 30.0 pg (25.0-35.0); Mean Corpuscular Volume 92 fL (80-100); Monocytes # (Auto) 0.8 Thou/mm3 (0.0-0.8); Monocytes % (Auto) 14 % (0-12); Neutrophils # (Auto) 3.2 Thou/mm3 (1.8-7.7); Neutrophils % (Auto) 51 % (37-80); Nucleated Red Blood Cell # 0.10 Thou/mm3 (0.00-0.00); Nucleated Red Blood Cell % 2 /100 WBC (0); Platelet Count 623 Thou/mm3 (140-440); RDW Standard Deviation 49.8 fL (36.4-46.3); Red Blood Count 2.23 Miln/mm3 (4.00-5.20); White Blood Count 6.2 Thou/mm3 (3.6-11.0)
[2025-02-05 06:53] LABS: Alanine Aminotransferase 15 U/L (10-49); Albumin, Serum 2.9 gm/dL (3.4-4.8); Albumin/Globulin Ratio 1.5 (1.2-2.2); Alkaline Phosphatase 56 U/L (46-116); Anion Gap 9 (7-16); Aspartate Amino Transferase 14 U/L (0-34); BUN/Creatinine Ratio 41 Ratio (12-20); Bilirubin,Total 0.2 mg/dL (0.3-1.2); Blood Urea Nitrogen 37 mg/dL (9-23); Calcium 8.5 mg/dL (8.3-10.6); Calcium (Corrected) 9.4 mg/dL (8.5-10.1); Carbon Dioxide 19.8 mMol/L (20.0-31.0); Chloride 105 mMol/L (98-107); Creatinine (Component) 0.9 mg/dL (0.6-1.3); Estimated Creatinine Clearance 46.5 mL/min (>60); Globulin 1.9 gm/dL (2.3-3.5); Glucose 257 mg/dL (74-106); Magnesium 1.5 mg/dL (1.6-2.6); Osmolality,Calculated 285 (275-295); Phosphorous 2.6 mg/dL (2.4-5.1); Potassium 4.3 mMol/L (3.4-5.1); Sodium 134 mMol/L (136-145); Total Protein 4.8 gm/dL (5.7-8.2); eGFR > 60 See Note
[2025-02-05 06:57] LABS: Hemoglobin 6.7 g/dL (12.0-16.0)
[2025-02-05] MEDS: SUCRALFATE SUSP 1 GM/10 ML UDC PO (07:36)
[2025-02-05] MEDS: Magnesium Sulfate 4 GM Ivpb 4 GM/50 ML BAG IV (08:26)
[2025-02-05] MEDS: CHOLECALCIFEROL (Vitamin D3) 1,000 IU TABLET 6000 IU PO (08:26)
[2025-02-05] MEDS: VITAMIN B COMPLEX TABLET 1 TAB PO (08:26)
[2025-02-05] MEDS: THIAMINE 100 MG TABLET PO (08:26)
[2025-02-05] MEDS: FOLIC ACID 1 MG TABLET PO (08:26)
[2025-02-05] MEDS: METOCLOPRAMIDE INJ 5 MG/ML VIAL 2 ML IVP ×2 (08:27→20:26)
[2025-02-05] MEDS: INSULIN DEGLUDEC 5 UNIT/0.05 ML (PER 5 UNITS) 40 UNIT SC (08:28)
--- NOTE | 2025-02-05 09:04 | PC.SS ---
Follow up note: SS spoke to Diana Rausch from [facility] yesterday who explained she has obtained insurance authorization and to inform her when pt is ready for d/c (upon dc [email or web address] will contact patient's health insurance). Hemoglobin dropped and will be reciving blood. Wean off PPN.
--- NOTE | 2025-02-05 09:53 | PD.SURPROG ---
Documentation for date of: 02/05/25 Subjective Subjective Brief History: 74F with HTN, HLD, DMII (A1c 13), CAD, admitted 01/23 with 3-day history of weakness, poor oral intake and nausea/vomiting, with findings consistent with HHS. Pt was admitted to ICU and then overnight developed worsening abdominal distention, AXR showing stool burden and CT performed today concerning for ischemic small bowel with air droplets in the mesentery and pneumoperitoneum. Pt was started on pressor support, has an increasing lactate Narrative: Pt denies pain but still reporting nausea after eating, has not had a BM for several days despite enema yesterday. Remaining afebrile with normal WBC, Hgb 6.7 today planned for 1u PRBC Exam Vital Signs Temp Pulse Resp BP Pulse Ox O2 Del Method O2 Flow Rate 97.9 F 96 18 150/69 H 99 Room Air 4 02/05/25 08:15 02/05/25 08:27 02/05/25 08:15 02/05/25 08:27 02/05/25 08:15 02/05/25 08:15 02/01/25 14:35 FiO2 30 01/27/25 19:00 Constitutional Constitutional: no acute distress Routine Respiratory Exam Respiratory: Present no resp distress Routine Abdominal Exam Abdominal: Present soft and wound (midline incision with cornelio c/d/i, no erythema, no fluctuance or tenderness); Absent tenderness or distended Results Results: Laboratory Laboratory results: results reviewed Assessment & Plan Plan 74F s/p small bowel resection and anastomosis on 01/24 with ongoing nausea despite dilation of esophageal stricture 02/01. Clinically she appears overall fairly well with no signs of active infection Continue diet as tolerated, appreciate RD recs PROCEDURES: Procedures Exploratory laparotomy, small bowel resection and anastomosis, washout
--- NOTE | 2025-02-05 11:43 | PD.RESCONSUL ---
HPI Data of Consult Requesting Physician: Nura Banerjee DO Admitting Provider: Sheree Tanner MD Attending Provider: Nura Banerjee DO Primary Care Provider: Physician No Primary/Family Consult Narrative cc:: cc: Nura Banerjee DO Exam Vital Signs Temp Pulse Resp BP Pulse Ox O2 Del Method O2 Flow Rate 97.7 F 86 18 138/56 H 98 Room Air 4 02/05/25 11:17 02/05/25 11:17 02/05/25 11:17 02/05/25 11:17 02/05/25 11:17 02/05/25 08:15 02/01/25 14:35 FiO2 30 01/27/25 19:00 Results Labs 02/05/25 05:18 02/05/25 05:18 Labs: Short CBC 02/05/25 Range/Units 05:18 WBC 6.2 (3.6-11.0) Thou/mm3 Hgb 6.7 L* D (12.0-16.0) g/dL Hct 20.5 L* (36.0-46.0) % Plt Count 623 H D (140-440) Thou/mm3 BMP 02/05/25 05:18 Sodium 134 L Potassium 4.3 Chloride 105 Carbon Dioxide 19.8 L BUN 37 H Creatinine 0.9 Glucose 257 H D Calcium 8.5 Liver Function 02/05/25 Range/Units 05:18 Total Bilirubin 0.2 L (0.3-1.2) mg/dL AST 14 (0-34) U/L ALT 15 (10-49) U/L Alkaline Phosphatase 56 (46-116) U/L Albumin 2.9 L D (3.4-4.8) gm/dL ABG Interpretation ABG results: 01/23/25 01/24/25 01/24/25 17:13 05:00 18:55 ABG pH 7.09 L* ABG pCO2 60 H ABG pO2 46 L* ABG HCO3 18 L ABG O2 Saturation 77 L ABG Base Excess -11 L VBG pH 7.22 L 7.25 L VBG pCO2 37 39 VBG pO2 137 H 43 D VBG Base Excess -12 L -10 L 01/24/25 20:50 ABG pH 7.24 L D ABG pCO2 44 D ABG pO2 129 H D ABG HCO3 19 L ABG O2 Saturation 100 H ABG Base Excess -8 L VBG pH VBG pCO2 VBG pO2 VBG Base Excess Quality Measures Quality Measures VTE prophylaxis Medications Home Medications and Allergies Home Medications ?Medication ?Instructions ?Recorded ?Confirmed ?Type simvastatin 20 mg tablet 20 mg PO QPM 01/30/22 01/23/25 History lisinopril 10 mg tablet 10 mg PO QDAY 12/28/24 01/23/25 History empagliflozin 12.5 mg-metformin 1 tab PO BID 01/23/25 01/23/25 History 500 mg tablet (Synjardy) hydroxyzine pamoate 25 mg capsule 25 mg PO DAILY PRN itching 01/23/25 01/23/25 History metoprolol tartrate 50 mg tablet 50 mg PO Q12H 01/23/25 01/23/25 History ondansetron 4 mg disintegrating 4 mg PO Q12H PRN nausea and 01/23/25 01/23/25 History tablet vomiting pioglitazone 30 mg tablet 30 mg PO DAILY 01/23/25 01/23/25 History sitagliptin phosphate 100 mg 100 mg PO DAILY 01/23/25 01/23/25 History tablet (Januvia) glipizide 5 mg tablet 5 mg PO .qdac 01/24/25 01/24/25 History insulin degludec 100 unit/mL (3 32 unit subcut QPM 01/24/25 01/24/25 History mL) subcutaneous pen lancets 33 gauge (OneTouch Delica 01/24/25 01/24/25 History Plus Lancet) pen needle, diabetic 32 gauge x 01/24/25 01/24/25 History 5/32 (Mary 2nd Gen Pen Needle) vitamin B complex-vitamin C-folic 1 tab PO QDAY 01/24/25 01/24/25 History acid 0.8 mg tablet (Greta-Jack) Allergies Allergy/AdvReac Type Severity Reaction Status Date / Time No Known Allergies Allergy Verified 12/28/24 13:05 Visit Medications Acetaminophen (Acetaminophen 325 Mg Tablet) 650 mg PO Q6H PRN PRN Reason: PAIN SCALE 1-3 (mild Stop: 02/27/25 11:11 Last Admin: 01/29/25 20:23 Dose: 650 mg Benzocaine (Benzocaine/Menthol 1 Lozenge) 1 lozenge PO Q4HR PRN PRN Reason: throat pain Stop: 03/05/25 10:20 Dextrose (Dextrose 50%-Water Inj 50 Ml Syringe) 25 ml IV Q15MIN PRN PRN Reason: BG 50-70 responsive npo pt Stop: 02/24/25 08:41 Dextrose (Dextrose 50%-Water Inj 50 Ml Syringe) 50 ml IV Q15MIN PRN PRN Reason: BG <50 OR BG <70 & pt unresponsive Stop: 02/24/25 08:41 Last Admin: 01/29/25 08:11 Dose: 50 ml Folic Acid (Folic Acid 1 Mg Tablet) 1 mg PO QDAY [facility] Stop: 02/27/25 16:29 Last Admin: 02/05/25 08:26 Dose: 1 mg Glucagon (Glucagon Inj 1 Mg Vial) 1 mg IM Q15MIN PRN PRN Reason: BG <70, and no IV access Glycerin (Glycerin, Adult 1 Ea Supp) 1 each OK QDAY PRN PRN Reason: CONSTIPATION Stop: 03/06/25 14:13 Last Admin: 02/04/25 16:24 Dose: 1 each Heparin Sodium (Porcine) (Heparin Sod Inj 5000 Unit/Ml Vial) 5,000 unit SC Q12HR [facility]; Protocol Stop: 02/09/25 14:14 Last Admin: 02/05/25 08:28 Dose: Not Given Fat Emulsion Intravenous (Intralipid 20% Iv) 500 mls @ 32 mls/hr IV [id number] [facility] Stop: 02/28/25 17:59 Last Admin: 02/03/25 17:07 Dose: 32 mls/hr Magnesium Sulfate (Magnesium Sulfate Ivpb) 4 gm in 50 mls @ 12.5 mls/hr IV X1 ONE Stop: 02/05/25 11:53 Last Admin: 02/05/25 08:26 Dose: 12.5 mls/hr Sodium Acetate 40 meq/Potassium Phosphate 24 mmol/Magnesium Sulfate 4 gm/ Amino Acids 2,036 mls @ 100 mls/hr IV .[id number] [facility] Stop: 02/06/25 07:23 Amino Acids (Clinimix 4.25/5) 1,000 mls @ 100 mls/hr IV .Q10H [facility] Stop: 02/06/25 17:23 Insulin Degludec (Insulin Degludec 5 Unit/0.05 Ml (Per 5 Units)) 40 unit SC QDAY [facility] Stop: 03/06/25 08:59 Last Admin: 02/05/25 08:28 Dose: 40 unit Insulin Human Regular (Insulin Hum Regular 1 Unit/0.01 Ml (Per Unit)) 8 unit SC Q6HR [facility] Stop: 03/06/25 10:38 Last Admin: 02/05/25 05:55 Dose: 8 unit Insulin Human Regular (Insulin Hum Regular 1 Unit/0.01 Ml (Per Unit)) 0 unit SC Q6HR [facility]; Protocol Stop: 03/05/25 14:14 Last Admin: 02/05/25 05:55 Dose: 5 unit Labetalol HCl (Labetalol Inj 5 Mg/Ml Vial 20 Ml) 10 mg IVP Q3HR PRN PRN Reason: Systolic >180 and HR >75 Stop: 02/25/25 11:52 Lisinopril (Lisinopril 2.5 Mg Tablet) 10 mg PO QDAY [facility] Stop: 03/06/25 10:14 Last Admin: 02/05/25 08:27 Dose: 10 mg Metoclopramide HCl (Metoclopramide Inj 5 Mg/Ml Vial 2 Ml) 5 mg IVP Q12HR [facility]; Protocol Stop: 03/03/25 20:59 Last Admin: 02/05/25 08:27 Dose: 5 mg Multivitamins/Minerals (Multivitamin 15 Ml Udc) 15 ml PO QDAY [facility] On Hold: 02/03/25 16:54 Comment: PARENTERAL NUTRTION ACTIVE Stop: 02/27/25 11:14 Last Admin: 02/03/25 08:44 Dose: 15 ml Ondansetron HCl (Ondansetron Odt 4 Mg Tabrap) 4 mg PO Q6HR PRN; Protocol PRN Reason: NAUSEA OR VOMITING Stop: 02/27/25 11:11 Last Admin: 02/04/25 15:42 Dose: 4 mg Pantoprazole Sodium (Pantoprazole Inj 40 Mg Vial) 40 mg IVP BID [facility] Stop: 02/24/25 08:59 Last Admin: 02/05/25 08:27 Dose: 40 mg Sucralfate (Sucralfate Susp 1 Gm/10 Ml Udc) 1 gm PO ACHS [facility] Stop: 03/06/25 11:29 Last Admin: 02/05/25 11:33 Dose: Not Given Thiamine HCl (Thiamine 100 Mg Tablet) 100 mg PO QDAY [facility] Stop: 02/27/25 16:29 Last Admin: 02/05/25 08:26 Dose: 100 mg Vitamin B Complex/Vit C/Folic Acid (Vitamin B Complex Tablet) 1 tab PO QDAY [facility] Stop: 02/27/25 16:29 Last Admin: 02/05/25 08:26 Dose: 1 tab Vitamin D (Cholecalciferol (Vitamin D3) 1,000 Iu Tablet) 6,000 iu PO QDAY [facility] Stop: 02/27/25 16:29 Last Admin: 02/05/25 08:26 Dose: 6,000 iu Discontinued Medications Acetaminophen (Acetaminophen 325 Mg Tablet) 650 mg PO Q6H PRN PRN Reason: Fever >99.9 Stop: 02/22/25 21:12 Albuterol (Albuterol Rt 2.5 Mg/0.5 Ml Nebu) 2.5 mg INH X1 ONE Stop: 01/24/25 18:51 Last Admin: 01/25/25 07:08 Dose: Not Given Albuterol (Albuterol Rt 2.5 Mg/0.5 Ml Nebu) 2.5 mg INH Q6HRRT PRN PRN Reason: wheezing Stop: 02/23/25 18:59 Albuterol/Ipratropium (Albuterol/Ipratropium (Duoneb) Rt Radha 3 Ml Nebu) 3 ml INH X1 ONE Stop: 01/23/25 16:26 Last Admin: 01/23/25 17:05 Dose: 3 ml Benzocaine (Benzocaine 20% (Hurricaine) [place] 1 Dose) 0 dose TOP X1 ONE Stop: 01/31/25 14:48 Last Admin: 01/31/25 17:44 Dose: Not Given Benzocaine (Benzocaine 20% (Hurricaine) [place] 1 Dose) 0 dose TOP X1 ONE Stop: 02/01/25 13:33 Last Admin: 02/04/25 18:57 Dose: Not Given Bisacodyl (Bisacodyl 10 Mg Supp) 10 mg OK X1 ONE; Protocol Stop: 01/30/25 08:01 Last Admin: 01/30/25 08:21 Dose: 10 mg Calcium Carbonate (Calcium Carbonate 600 Mg Tablet) 600 mg PO X1 ONE Stop: 01/26/25 13:54 Last Admin: 01/26/25 15:01 Dose: 600 mg Calcium Chloride (Calcium Chloride 10% Inj 10 Ml Syrg) 10 ml IV X1 ONE Stop: 01/23/25 16:26 Last Admin: 01/23/25 18:42 Dose: 10 ml Calcium Gluconate (Calcium Gluconate 10% Inj 1 Gm/10 Ml Vial) 1 gm IV X1 ONE Stop: 01/24/25 17:26 Last Admin: 01/25/25 07:07 Dose: Not Given Calcium Gluconate (Calcium Gluconate 10% Inj 1 Gm/10 Ml Vial) 1 gm IV X1 ONE Stop: 01/25/25 06:32 Last Admin: 01/25/25 09:25 Dose: 1 gm Calcium Gluconate (Calcium Gluconate 10% Inj 1 Gm/10 Ml Vial) 1 gm IV X1 ONE Stop: 01/29/25 10:27 Last Admin: 01/29/25 14:01 Dose: Not Given Chlorhexidine Gluconate (Chlorhexidine Mouthwash 0.12% Udc 15 Ml) 15 ml PO X1 ONE Stop: 02/03/25 10:22 Last Admin: 02/03/25 11:11 Dose: 15 ml Dextrose (Dextrose 50%-Water Inj 50 Ml Syringe) 50 ml IVP X1 ONE Stop: 01/23/25 16:27 Last Admin: 01/23/25 18:48 Dose: 50 ml Dextrose (Dextrose 50%-Water Inj 50 Ml Syringe) 25 ml IV [id number] PRN PRN Reason: Blood Sugar - Low Diphenhydramine HCl (Diphenhydramine Inj 50 Mg/Ml Vial) 25 mg IVP [id number] PRN PRN Reason: MODERATE SEDATION Stop: 01/31/25 16:47 Diphenhydramine HCl (Diphenhydramine Inj 50 Mg/Ml Vial) 25 mg IVP [id number] PRN PRN Reason: MODERATE SEDATION Stop: 02/01/25 15:32 Enoxaparin Sodium (Enoxaparin Sod Inj 40 Mg/0.4 Ml Syringe) 30 mg SC QPM [facility] Stop: 02/07/25 20:59 Enoxaparin Sodium (Enoxaparin Sod Inj 40 Mg/0.4 Ml Syringe) 40 mg SC QDAY [facility] Stop: 02/07/25 09:44 Famotidine (Famotidine Inj 10 Mg/Ml Vial 2 Ml) 20 mg IVP Q12HR [facility] Stop: 02/23/25 08:59 Last Admin: 01/24/25 22:01 Dose: 20 mg Fentanyl Citrate (Fentanyl Cit Inj 50 Mcg/Ml Amp 2ml) 50 mcg IVP Q2M PRN PRN Reason: MODERATE SEDATION Stop: 01/31/25 16:47 Fentanyl Citrate (Fentanyl Cit Inj 50 Mcg/Ml Amp 2ml) 50 mcg IVP Q2M PRN PRN Reason: MODERATE SEDATION Stop: 02/01/25 15:32 Heparin Sodium (Porcine) (Heparin Sod Inj 5000 Unit/Ml Vial) 5,000 unit SC Q8HR [facility] Stop: 02/08/25 05:59 Last Admin: 01/25/25 09:33 Dose: Not Given Heparin Sodium (Porcine) (Heparin Sod Inj 5000 Unit/Ml Vial) 5,000 unit SC Q8HR [facility]; Protocol Stop: 02/09/25 14:14 Last Admin: 01/28/25 07:19 Dose: Not Given Hydromorphone HCl (Hydromorphone Inj 2 Mg/Ml Vial) 0.5 mg IVP Q4HR PRN PRN Reason: PAIN Stop: 01/29/25 16:43 Hydromorphone HCl (Hydromorphone Inj 2 Mg/Ml Vial) 0.5 mg IVP Q4HR PRN PRN Reason: PAIN SCALE 4-10(Mod-Sev Stop: 01/29/25 16:43 Last Admin: 01/24/25 20:33 Dose: 0.5 mg Sodium Chloride (Ns) 1,000 mls @ 999 mls/hr IV .Q1H1M ONE Stop: 01/23/25 15:58 Last Infusion: 01/23/25 16:21 Dose: Infused Sodium Chloride (Ns) 1,000 mls @ 999 mls/hr IV .Q1H1M ONE Stop: 01/23/25 17:17 Last Infusion: 01/23/25 17:23 Dose: Infused Insulin Human Regular 100 unit (/ IV Miscellaneous Supplies) 100 mls @ 5.443 mls/hr IV .[id number] PRN; Protocol PRN Reason: PER PROTOCOL Stop: 02/22/25 17:36 Last Titration: 01/25/25 09:30 Dose: 0 unit/kg/hr, 0 mls/hr Sodium Chloride (Ns) 1,000 mls @ 999 mls/hr IV .Q1H1M ONE Stop: 01/23/25 22:07 Last Admin: 01/23/25 21:26 Dose: Not Given Piperacillin/Tazobactam/Dextrose (Zosyn) 3.375 gm in 50 mls @ 100 mls/hr IV X1 ONE; Protocol Stop: 01/23/25 21:36 Last Admin: 01/23/25 21:26 Dose: Not Given Potassium Chloride (Kcl Ivpb) 10 meq in 100 mls @ 100 mls/hr IV .Q1H PRN PRN Reason: IF POTASSIUM LESS THAN 3.3 Stop: 02/22/25 21:12 Magnesium Sulfate (Magnesium Sulfate Ivpb) 2 gm in 50 mls @ 25 mls/hr IV .Q2H PRN PRN Reason: PER DKA PROTOCOL Stop: 02/22/25 21:12 Dextrose/Lactated Ringer's (D5-Lr) 1,000 mls @ 250 mls/hr IV .Q4H PRN PRN Reason: PER PROTOCOL Stop: 02/22/25 21:12 Lactated Ringer's (Lactated Ringers) 1,000 mls @ 250 mls/hr IV .Q4H PRN PRN Reason: PER PROTOCOL Stop: 01/24/25 21:12 Potassium Chloride 20 meq/ (Lactated Ringer's) 1,010 mls @ 250 mls/hr IV .Q4H3M PRN PRN Reason: K LEVEL 3.3 TO 5.3mM/L Stop: 02/22/25 21:12 Potassium Chloride 40 meq/ (Lactated Ringer's) 1,020 mls @ 250 mls/hr IV .Q4H5M PRN PRN Reason: K LEVEL < 3.3 mM/L Stop: 02/22/25 21:12 Potassium Chloride 40 meq/ (Dextrose/Lactated Ringer's) 1,020 mls @ 250 mls/hr IV .Q4H5M PRN PRN Reason: K LEVEL < 3.3mM/L Stop: 02/22/25 21:12 Potassium Cl/Dextrose/Lact Ringer's (Kcl 20 Meq/L In D5-Lr) 20 meq in 1,000 mls @ 250 mls/hr IV .Q4H PRN PRN Reason: K LEVEL 3.3 TO 5.3 mM/L Potassium Chloride (Kcl Ivpb) 10 meq in 100 mls @ 50 mls/hr IV PRN PRN PRN Reason: K LEVEL 3.3 to 5.3 & BG > 200 Stop: 02/22/25 21:12 Last Admin: 01/23/25 21:51 Dose: 50 mls/hr Potassium Phosphate (Pot Phos 15 Mmol In Ns 250 Ml) 15 mmol in 250 mls @ 62.5 mls/hr IV PRN PRN PRN Reason: Phosphate <= 1mg/dL Stop: 02/22/25 21:12 Sodium Phosphate 15 mmol/ (Sodium Chloride) 255 mls @ 62.5 mls/hr IV .Q4H5M PRN PRN Reason: Phosphate <= 1mg/dL and K> than 5.3 Stop: 02/22/25 21:12 Sodium Chloride (Ns 0.45%) 1,000 mls @ 150 mls/hr IV .Q6H40M [facility] Stop: 02/22/25 21:24 Last Admin: 01/23/25 22:03 Dose: Not Given Sodium Chloride (Ns 0.45%) 1,000 mls @ 150 mls/hr IV .Q6H40M [facility] Stop: 02/22/25 22:14 Last Admin: 01/23/25 22:27 Dose: Not Given Sodium Chloride (Ns 0.45%) 1,000 mls @ 999 mls/hr IV .Q1H1M [facility] Stop: 02/22/25 22:16 Last Admin: 01/25/25 07:07 Dose: Not Given Sodium Chloride (Ns 0.45%) 1,000 mls @ 250 mls/hr IV .Q4H [facility] Stop: 02/22/25 23:41 Last Admin: 01/25/25 07:09 Dose: Not Given Lactated Ringer's (Lactated Ringers) 1,000 mls @ 150 mls/hr IV .Q6H40M PRN PRN Reason: PER PROTOCOL Stop: 01/24/25 21:12 Last Admin: 01/24/25 15:55 Dose: 150 mls/hr Lactated Ringer's (Lactated Ringers) 1,000 mls @ 999 mls/hr IV .Q1H1M ONE Stop: 01/24/25 08:08 Last Admin: 01/24/25 07:25 Dose: 999 mls/hr Norepinephrine/Dextrose (Levophed In D5w 8mg/250ml) 8 mg in 250 mls @ 5.103 mls/hr IV .Q24H PRN; Protocol PRN Reason: PER PROTOCOL Stop: 02/23/25 08:18 Last Titration: 01/26/25 02:15 Dose: 0 mcg/kg/min, 0 mls/hr Piperacillin/Tazobactam/Dextrose (Zosyn) 3.375 gm in 50 mls @ 100 mls/hr IV Q8HR [facility]; Protocol Stop: 01/31/25 08:44 Last Admin: 01/27/25 05:25 Dose: 100 mls/hr Lactated Ringer's (Lactated Ringers) 1,000 mls @ 999 mls/hr IV .Q1H1M ONE Stop: 01/24/25 09:46 Last Admin: 01/24/25 08:58 Dose: 999 mls/hr Albumin Human (Albuminex 25% Ivpb) 25 gm in 100 mls @ 100 mls/hr IV X1 ONE Stop: 01/24/25 12:44 Last Admin: 01/24/25 12:09 Dose: 100 mls/hr Acetaminophen (Ofirmev Inj) 1,000 mg in 100 mls @ 250 mls/hr IV Q6HR [facility] Stop: 01/25/25 12:23 Last Infusion: 01/25/25 12:24 Dose: Infused Calcium Gluconate/Sodium Chloride (Calcium Gluc/Ns 1000mg Ivpb) 1,000 mg in 50 mls @ 50 mls/hr IV X1 ONE Stop: 01/24/25 18:29 Last Admin: 01/24/25 18:38 Dose: 50 mls/hr Vasopressin/Sodium Chloride (Vasostrict/Ns Ivpb) 20 unit in 100 mls @ 9 mls/hr IV .Q11H7M PRN; Protocol PRN Reason: PER PROTOCOL Stop: 02/23/25 21:07 Vasopressin/Sodium Chloride (Vasostrict/Ns Ivpb) 20 unit in 100 mls @ 9 mls/hr IV .Q11H7M PRN; Protocol PRN Reason: PER PROTOCOL Stop: 02/23/25 21:07 Last Titration: 01/25/25 07:15 Dose: 0 unit/min, 0 mls/hr Lactated Ringer's (Lactated Ringers) 1,000 mls @ 150 mls/hr IV .Q6H40M [facility] Stop: 01/25/25 12:14 Last Admin: 01/25/25 08:05 Dose: Not Given Lactated Ringer's (Lactated Ringers) 1,000 mls @ 999 mls/hr IV .Q1H1M ONE Stop: 01/25/25 03:30 Last Admin: 01/25/25 07:06 Dose: Not Given Dextrose/Lactated Ringer's (D5-Lr) 1,000 mls @ 150 mls/hr IV .Q6H40M PRN PRN Reason: BLOOD SUGAR <200 Stop: 02/24/25 02:29 Last Admin: 01/25/25 02:30 Dose: 150 mls/hr Dextrose/Sodium Chloride (D5-Ns) 1,000 mls @ 150 mls/hr IV .Q6H40M PRN PRN Reason: For BG less than or equal to 200 mg/dL Stop: 02/24/25 02:59 Last Infusion: 01/25/25 08:06 Dose: Infused Lactated Ringer's (Lactated Ringers) 1,000 mls @ 150 mls/hr IV .Q6H40M [facility] Stop: 02/24/25 08:03 Last Admin: 01/25/25 08:07 Dose: 150 mls/hr Dextrose/Lactated Ringer's (D5-Lr) 1,000 mls @ 75 mls/hr IV .[id number] [facility] Stop: 02/24/25 08:44 Last Admin: 01/25/25 22:54 Dose: 75 mls/hr Dextrose/Sodium Chloride (D5-1/2ns) 1,000 mls @ 100 mls/hr IV .Q10H [facility] Stop: 02/25/25 07:14 Last Admin: 01/28/25 07:19 Dose: Not Given Dextrose/Sodium Chloride (D5-1/2ns) 1,000 mls @ 120 mls/hr IV .Q8H20M [facility] Stop: 02/25/25 11:43 Last Admin: 01/28/25 07:19 Dose: Not Given Sodium Chloride (Ns 0.45%) 1,000 mls @ 120 mls/hr IV .Q8H20M [facility] Stop: 02/25/25 12:36 Last Admin: 01/26/25 14:57 Dose: 120 mls/hr Dextrose (D5w) 1,000 mls @ 100 mls/hr IV .Q10H [facility] Stop: 01/27/25 01:29 Last Admin: 01/26/25 18:32 Dose: 100 mls/hr Dextrose (D5w) 1,000 mls @ 100 mls/hr IV .Q10H [facility] Stop: 02/26/25 09:59 Last Infusion: 01/27/25 15:52 Dose: 50 mls/hr Dextrose/Sodium Chloride (D5-Ns) 1,000 mls @ 75 mls/hr IV .[id number] [facility] Stop: 01/28/25 12:39 Last Admin: 01/27/25 15:53 Dose: Not Given Dextrose (D5w) 1,000 mls @ 50 mls/hr IV .Q20H [facility] Stop: 02/26/25 15:03 Last Admin: 01/27/25 15:52 Dose: Not Given Dextrose (D5w) 1,000 mls @ 100 mls/hr IV .Q10H [facility] Stop: 02/26/25 23:20 Last Admin: 01/28/25 22:13 Dose: Not Given Potassium Phosphate 22.5 mmol/ (Sodium Chloride) 507.5 mls @ 82.778 mls/hr IV X1 ONE Stop: 01/28/25 13:54 Last Admin: 01/28/25 09:39 Dose: 82.778 mls/hr Dextrose (D5w) 500 mls @ 125 mls/hr IV .Q4H [facility] Stop: 01/28/25 11:59 Last Admin: 01/28/25 10:06 Dose: 125 mls/hr Dextrose (D5w) 500 mls @ 100 mls/hr IV .Q5H [facility] Stop: 01/28/25 16:07 Last Admin: 01/28/25 11:25 Dose: 100 mls/hr Dextrose (D5w) 1,000 mls @ 100 mls/hr IV .Q10H [facility] Stop: 01/29/25 18:29 Last Admin: 01/29/25 09:05 Dose: 100 mls/hr Calcium Gluconate/Sodium Chloride (Calcium Gluc/Ns 1000mg Ivpb) 1,000 mg in 50 mls @ 50 mls/hr IV X1 ONE Stop: 01/29/25 11:29 Last Admin: 01/29/25 10:52 Dose: 50 mls/hr Multivitamins/Minerals 10 ml/Potassium Phosphate 30 mmol/Calcium Gluconate 2 gm/ Amino Acids 2,040 mls @ 45.946 mls/hr IV QDAY@1800 ONE Stop: 01/30/25 17:59 Last Infusion: 01/30/25 02:00 Dose: 100 mls/hr Magnesium Sulfate (Magnesium Sulfate Ivpb) 4 gm in 50 mls @ 12.5 mls/hr IV X1 ONE Stop: 01/30/25 11:53 Last Admin: 01/30/25 09:18 Dose: Not Given Multivitamins/Minerals 10 ml/Potassium Phosphate 15 mmol/Calcium Gluconate 2 gm/Magnesium Sulfate 2 gm/ Amino Acids 2,039 mls @ 100 mls/hr IV QDAY@1800 ONE Stop: 01/31/25 14:23 Last Admin: 01/30/25 17:39 Dose: 100 mls/hr Sodium Acetate 40 meq/ Calcium Gluconate 2 gm/ Multivitamins /Minerals 10 ml/ Amino Acids 2,050 mls @ 100 mls/hr IV .[id number] [facility] Stop: 02/01/25 10:53 Last Admin: 01/31/25 19:12 Dose: Not Given Sodium Chloride (Ns) 500 mls @ 20 mls/hr IV .Q24H [facility] Stop: 03/02/25 14:48 Last Admin: 02/04/25 18:57 Dose: Not Given Sodium Acetate 40 meq/Magnesium Sulfate 2 gm/Multivitamins/Minerals 10 ml/Amino Acids 2,034 mls @ 50 mls/hr IV .Q24H [facility] Stop: 02/02/25 10:59 Last Infusion: 02/01/25 19:45 Dose: 100 mls/hr Sodium Chloride (Ns) 500 mls @ 20 mls/hr IV .Q24H ONE Stop: 02/02/25 13:14 Last Admin: 02/01/25 13:15 Dose: 20 mls/hr Sodium Acetate 60 meq/ Calcium Gluconate 2 gm/ Multivitamins /Minerals 10 ml/ Amino Acids 2,060 mls @ 100 mls/hr IV .[id number] [facility] Stop: 02/03/25 07:35 Last Admin: 02/02/25 11:04 Dose: 100 mls/hr Amino Acids (Clinimix 4.25/5) 1,000 mls @ 100 mls/hr IV .Q10H [facility] Stop: 02/03/25 17:35 Last Admin: 02/03/25 08:44 Dose: 100 mls/hr Potassium Phosphate 24 mmol/Magnesium Sulfate 2 gm/Calcium Gluconate 1 gm/ Sodium Acetate 40 meq/ Amino Acids 2,042 mls @ 100 mls/hr IV .[id number] [facility] Stop: 02/04/25 14:25 Last Admin: 02/03/25 17:07 Dose: 100 mls/hr Lactated Ringer's (Lactated Ringers) 1,000 mls @ 50 mls/hr IV .Q20H [facility] Stop: 02/04/25 12:14 Last Infusion: 02/04/25 14:21 Dose: Infused Sodium Acetate 60 meq/ Calcium Gluconate 2 gm/ Multivitamins /Minerals 10 ml/ Amino Acids 2,060 mls @ 100 mls/hr IV .[id number] [facility] Stop: 02/05/25 11:01 Last Admin: 02/04/25 14:16 Dose: 100 mls/hr Insulin Degludec (Insulin Degludec 5 Unit/0.05 Ml (Per 5 Units)) 20 unit SC QDAY [facility] Stop: 02/24/25 08:59 Last Admin: 01/29/25 08:28 Dose: Not Given Insulin Degludec (Insulin Degludec 5 Unit/0.05 Ml (Per 5 Units)) 10 unit SC QDAY [facility] Stop: 03/01/25 08:59 Last Admin: 02/02/25 08:52 Dose: 10 unit Insulin Degludec (Insulin Degludec 5 Unit/0.05 Ml (Per 5 Units)) 32 unit SC QDAY [facility] Stop: 03/05/25 08:59 Last Admin: 02/03/25 08:46 Dose: 32 unit Insulin Degludec (Insulin Degludec 5 Unit/0.05 Ml (Per 5 Units)) 22 unit SC X1 ONE Stop: 02/02/25 15:37 Last Admin: 02/02/25 16:12 Dose: 22 unit Insulin Human Lispro (Insulin Lispro (Admelog) 1 Unit/0.01 Ml Unit) 0 unit SC Q6HR [facility]; Protocol Stop: 02/24/25 08:44 Last Admin: 01/26/25 06:34 Dose: Not Given Insulin Human Lispro (Insulin Lispro (Admelog) 1 Unit/0.01 Ml Unit) 0 unit SC AC [facility]; Protocol Stop: 02/25/25 16:59 Insulin Human Lispro (Insulin Lispro (Admelog) 1 Unit/0.01 Ml Unit) 0 unit SC ACHS [facility]; Protocol Stop: 02/25/25 16:59 Last Admin: 01/31/25 08:35 Dose: 4 unit Insulin Human Lispro (Insulin Lispro (Admelog) 1 Unit/0.01 Ml Unit) 0 unit SC Q6HR [facility]; Protocol Stop: 03/02/25 11:59 Last Admin: 02/02/25 05:56 Dose: 4 unit Insulin Human Lispro (Insulin Lispro (Admelog) 1 Unit/0.01 Ml Unit) 0 unit SC Q6HR [facility]; Protocol Stop: 03/02/25 11:59 Last Admin: 02/02/25 11:27 Dose: 6 unit Insulin Human Lispro (Insulin Lispro (Admelog) 1 Unit/0.01 Ml Unit) 0 unit SC Q6HR [facility]; Protocol Stop: 03/02/25 11:59 Insulin Human Lispro (Insulin Lispro (Admelog) 1 Unit/0.01 Ml Unit) 0 unit SC Q6HR [facility]; Protocol Stop: 03/04/25 15:50 Last Admin: 02/03/25 11:18 Dose: 6 unit Insulin Human Lispro (Insulin Lispro (Admelog) 1 Unit/0.01 Ml Unit) 5 unit SC X1 ONE Stop: 02/02/25 15:54 Last Admin: 02/02/25 16:13 Dose: 5 unit Insulin Human Regular (Insulin Hum Regular 1 Unit/0.01 Ml (Per Unit)) 10 unit IV X1 ONE Stop: 01/23/25 16:26 Last Admin: 01/23/25 18:39 Dose: 10 unit Insulin Human Regular (Insulin Hum Regular 1 Unit/0.01 Ml (Per Unit)) 0 unit SC Q6HR PRN; Protocol PRN Reason: GLYCEMIC MANAGEMENT ON PN Stop: 02/28/25 16:25 Insulin Human Regular (Insulin Hum Regular 1 Unit/0.01 Ml (Per Unit)) 0 unit SC Q6HR [facility]; Protocol Stop: 03/05/25 14:14 Last Admin: 02/03/25 14:34 Dose: Not Given Insulin Human Regular (Insulin Hum Regular 1 Unit/0.01 Ml (Per Unit)) 0 unit SC Q6HR [facility]; Protocol Stop: 03/05/25 14:14 Last Admin: 02/04/25 05:24 Dose: 5 unit Insulin Human Regular (Insulin Hum Regular 1 Unit/0.01 Ml (Per Unit)) 6 unit SC Q6H [facility] Stop: 03/05/25 17:59 Last Admin: 02/04/25 05:24 Dose: 6 unit Ipratropium [place] (Ipratropium Rt 0.5 Mg/ 2.5 Ml Nebu) 0.5 mg INH X1 ONE Stop: 01/24/25 19:04 Last Admin: 01/24/25 19:44 Dose: 0.5 mg Ipratropium [place] (Ipratropium Rt 0.5 Mg/ 2.5 Ml Nebu) 0.5 mg INH Q6HR PRN; Protocol PRN Reason: SHORTNESS OF BREATH Stop: 02/23/25 19:02 Levalbuterol HCl (Levalbuterol Rt 0.63 Mg/3 Ml Nebu) 0.63 mg INH X1 ONE Stop: 01/24/25 18:49 Last Admin: 01/24/25 19:44 Dose: 0.63 mg Levalbuterol HCl (Levalbuterol Rt 0.63 Mg/3 Ml Nebu) 0.63 mg INH Q6HR PRN PRN Reason: WHEEZING Stop: 02/23/25 18:47 Magnesium Oxide (Magnesium Oxide 400 Mg Tablet) 400 mg PO X1 ONE Stop: 01/30/25 08:31 Last Admin: 01/30/25 09:20 Dose: 400 mg Metoclopramide HCl (Metoclopramide 5 Mg Tablet) 5 mg PO Q8HR PRN; Protocol PRN Reason: NAUSEA OR VOMITING Stop: 02/28/25 17:02 Metoclopramide HCl (Metoclopramide 5 Mg Tablet) 10 mg PO X1 ONE Stop: 01/29/25 17:08 Last Admin: 01/29/25 18:10 Dose: 10 mg Metoclopramide HCl (Metoclopramide Liqd 10 Mg/10 Ml Udc) 10 mg PO ACHS [facility] Stop: 03/01/25 11:29 Midazolam HCl (Midazolam Inj 1 Mg/Ml Vial 2 Ml) 2 mg IVP Q2M PRN PRN Reason: Moderate Sedation Stop: 01/31/25 16:47 Midazolam HCl (Midazolam Inj 1 Mg/Ml Vial 2 Ml) 2 mg IVP Q2M PRN PRN Reason: Moderate Sedation Stop: 02/01/25 15:32 Ondansetron HCl (Ondansetron Inj 2 Mg/Ml Inj 2 Ml) 4 mg IVP Q6H PRN; Protocol PRN Reason: NAUSEA OR VOMITING Stop: 02/22/25 21:12 Last Admin: 01/27/25 09:55 Dose: 4 mg Ondansetron HCl (Ondansetron Inj 2 Mg/Ml Inj 2 Ml) 4 mg IVP X1 ONE; Protocol Stop: 01/24/25 09:42 Last Admin: 01/24/25 09:45 Dose: 4 mg Ondansetron HCl (Ondansetron Odt 4 Mg Tabrap) 4 mg PO Q8HR PRN; Protocol PRN Reason: NAUSEA OR VOMITING Stop: 02/27/25 11:11 Last Admin: 01/29/25 10:52 Dose: 4 mg Oxycodone/Acetaminophen (Oxycodone/Apap 5/325 Tablet) 1 tab PO Q6HR PRN PRN Reason: PAIN SCALE 4-10(Mod-Sev Stop: 02/02/25 11:11 Pantoprazole Sodium (Pantoprazole Inj 40 Mg Vial) 40 mg IVP QDAY ELVIA Stop: 02/23/25 07:14 Last Admin: 01/24/25 09:08 Dose: Not Given Pharmacy Consult (Vancomycin Pharmacy To Dose 1 Each Each) 1 each IV QDAY ONE Stop: 01/23/25 21:09 Last Admin: 01/23/25 21:27 Dose: Not Given Potassium Phos/Sodium Phos (N[facility] 1 Packet (1.5 Gm)) 1 packet PO X1 ONE Stop: 01/27/25 09:07 Last Admin: 01/27/25 09:55 Dose: 1 packet Sevelamer Carbonate (Sevelamer Carbonate 800 Mg Tablet) 400 mg PO X1 ONE Stop: 01/23/25 21:20 Last Admin: 01/23/25 22:03 Dose: Not Given Sodium Bicarbonate (Sodium Bicarb Inj 8.4% Syr 50 Ml Syringe) 50 ml IV Q4HR PRN PRN Reason: For ph <= to 7.0 Stop: 02/22/25 21:12 Sodium Chloride (Sodium Chloride Rt 10% 15 Ml Nebu) 5 ml INH X1 ONE Stop: 01/24/25 16:57 Last Admin: 01/24/25 17:46 Dose: Not Given Sodium Chloride (Sodium Chloride Rt Radha 0.9% 3 Ml Nebu) 3 ml INH PRN PRN PRN Reason: SOLN Stop: 02/23/25 18:49 Sodium Polystyrene Sulfonate (Sod Polystyrene Sulfon Susp 15 Gm/60 Ml Btl) 30 gm PO X1 ONE Stop: 01/23/25 16:26 Last Admin: 01/23/25 19:25 Dose: 30 gm Spironolactone (Spironolactone 25 Mg Tablet) 100 mg PO X1 ONE Stop: 01/28/25 08:21 Last Admin: 01/28/25 09:39 Dose: 100 mg Spironolactone (Spironolactone 25 Mg Tablet) 100 mg PO X1 ONE Stop: 01/29/25 08:25 Last Admin: 01/29/25 09:04 Dose: 100 mg
--- NOTE | 2025-02-05 13:14 | PD.RESPRO ---
Documentation for date of: 02/05/25 Subjective Subjective Interval history: Patient seen and is examined at bedside with family members present. Vitals are within normal limit patient saturating well on room air. Patient reports feeling better overall. However she endorses abdominal discomfort and feeling bloated. She denies nausea, vomiting, hematemesis, lightheadedness and headache. Last bowel movement was 6 days ago, enema and glycerin suppository was given however did not help. Patient reports minimal flatulence. Significant labs RBC 2.3, hemoglobin 6.7, hematocrit 20.5 and platelets 623. Patient received 1 pack PRBC this morning. Exam Vital Signs Temp Pulse Resp BP Pulse Ox O2 Del Method O2 Flow Rate 97.7 F 96 18 138/56 H 98 Room Air 4 02/05/25 11:17 02/05/25 12:00 02/05/25 11:17 02/05/25 11:17 02/05/25 11:17 02/05/25 08:15 02/01/25 14:35 FiO2 30 01/27/25 19:00 Narrative Exam General: Alert, no acute distress.Conversational and non-toxic appearing. Skin: Warm, dry, intact. No rash or ecchymoses. Head: Normocephalic, atraumatic. Eye: Normal conjunctiva, PERRL. Throat: Oral mucosa moist. No obvious lesions in oropharynx. Cardiovascular: Regular rate and rhythm, no murmur, +S1/S2. Respiratory: Lungs are clear to auscultation, respirations unlabored, no crackles, no wheezing. Gastrointestinal: Soft, non-distended. No guarding or rebound tenderness.Midline incision with cornelio clean and intact,no erythema, no fluctuance or tenderness Extremities: No edema, no cyanosis, no clubbing. Neuro: Alert and oriented x3.No focal deficits observed. Conversant, moving all extremities. No overt cerebellar signs/incoordination. Psychiatric: Cooperative, appropriate affect Objective Labs 02/05/25 16:11 02/05/25 05:18 Labs: Laboratory Results - last 24 hr 02/05/25 02/05/25 05:18 08:56 WBC 6.2 RBC 2.23 L Hgb 6.7 L* D Hct 20.5 L* MCV 92 MCH 30.0 MCHC 32.7 RDW Std Deviation 49.8 H Plt Count 623 H D Neut % (Auto) 51 Lymph % (Auto) 30 [place] % (Auto) 14 H Eos % (Auto) 1 Baso % (Auto) 1 Neut # (Auto) 3.2 Lymph # (Auto) 1.9 [place] # (Auto) 0.8 Eos # (Auto) 0.1 Baso # (Auto) 0.0 Immature Gran # (Auto) 0.19 H Absolute Nucleated RBC 0.10 H Immature Gran % 3 H Nucleated RBC % 2 H Sodium 134 L Potassium 4.3 Chloride 105 Carbon Dioxide 19.8 L Anion Gap 9 BUN 37 H Creatinine 0.9 Estim Creat Clear Calc 46.5 L eGFR > 60 BUN/Creatinine Ratio 41 H Glucose 257 H D Calculated Osmolality 285 Calcium 8.5 Corrected Calcium 9.4 Phosphorus 2.6 Magnesium 1.5 L Total Bilirubin 0.2 L AST 14 ALT 15 Alkaline Phosphatase 56 Total Protein 4.8 L Albumin 2.9 L D Globulin 1.9 L Albumin/Globulin Ratio 1.5 Blood Type O Positive Antibody Screen NEGATIVE Crossmatch See Detail Blood Bank Wristband ID Yes ABG Interpretation ABG results: 01/23/25 01/24/25 01/24/25 17:13 05:00 18:55 ABG pH 7.09 L* ABG pCO2 60 H ABG pO2 46 L* ABG HCO3 18 L ABG O2 Saturation 77 L ABG Base Excess -11 L VBG pH 7.22 L 7.25 L VBG pCO2 37 39 VBG pO2 137 H 43 D VBG Base Excess -12 L -10 L 01/24/25 20:50 ABG pH 7.24 L D ABG pCO2 44 D ABG pO2 129 H D ABG HCO3 19 L ABG O2 Saturation 100 H ABG Base Excess -8 L VBG pH VBG pCO2 VBG pO2 VBG Base Excess Quality Measures Quality Measures VTE prophylaxis Advance care planning discussed with:: patient and other Assessment & Plan Assessment Current Active Medications: Generic Name Dose Route Start Last Admin Trade Name Freq PRN Reason Stop Dose Admin Acetaminophen 650 mg 01/28/25 11:12 01/29/25 20:23 Acetaminophen 325 Mg Tablet PO 02/27/25 11:11 650 mg Q6H PRN Administration PAIN SCALE 1-3 (mild Benzocaine 1 lozenge 02/03/25 10:21 Benzocaine/Menthol 1 Lozenge PO 03/05/25 10:20 Q4HR PRN throat pain Dextrose 25 ml 01/25/25 08:42 Dextrose 50%-Water Inj 50 Ml Syringe IV 02/24/25 08:41 Q15MIN PRN BG 50-70 responsive npo pt Dextrose 50 ml 01/25/25 08:42 01/29/25 08:11 Dextrose 50%-Water Inj 50 Ml Syringe IV 02/24/25 08:41 50 ml Q15MIN PRN Administration BG <50 OR BG <70 & pt unresponsive Folic Acid 1 mg 01/28/25 16:30 02/05/25 08:26 Folic Acid 1 Mg Tablet PO 02/27/25 16:29 1 mg QDAY ELVIA Administration Glucagon 1 mg 01/25/25 08:42 Glucagon Inj 1 Mg Vial IM Q15MIN PRN BG <70, and no IV access Glycerin 1 each 02/04/25 14:14 02/04/25 16:24 Glycerin, Adult 1 Ea Supp CA 03/06/25 14:13 1 each QDAY PRN Administration CONSTIPATION Heparin Sodium (Porcine) 5,000 unit 01/26/25 21:00 02/05/25 08:28 Heparin Sod Inj 5000 Unit/Ml Vial SC 02/09/25 14:14 Not Given Q12HR [facility] Protocol Fat Emulsion Intravenous 500 mls @ 32 mls/hr 01/29/25 18:00 02/03/25 17:07 Intralipid 20% Iv IV 02/28/25 17:59 32 mls/hr [id number] ELVIA Administration Sodium Acetate 40 meq/ 2,036 mls @ 100 mls/hr 02/05/25 11:02 02/05/25 11:41 Potassium Phosphate 24 mmol/ IV 02/06/25 07:23 100 mls/hr Magnesium Sulfate 4 gm/ Amino .[id number] ELVIA Administration Acids Amino Acids 1,000 mls @ 100 mls/hr 02/06/25 07:24 Clinimix 4.25/5 IV 02/06/25 17:23 .Q10H ELVIA Insulin Degludec 40 unit 02/04/25 09:00 02/05/25 08:28 Insulin Degludec 5 Unit/0.05 Ml (Per 5 Units) SC 03/06/25 08:59 40 unit QDAY ELVIA Administration Insulin Human Regular 8 unit 02/04/25 10:39 02/05/25 11:41 Insulin Hum Regular 1 Unit/0.01 Ml (Per Unit) SC 03/06/25 10:38 8 unit Q6HR ELVIA Administration Insulin Human Regular 0 unit 02/04/25 10:39 02/05/25 11:42 Insulin Hum Regular 1 Unit/0.01 Ml (Per Unit) SC 03/05/25 14:14 6 unit Q6HR ELVIA Administration Protocol Labetalol HCl 10 mg 01/26/25 11:53 Labetalol Inj 5 Mg/Ml Vial 20 Ml IVP 02/25/25 11:52 Q3HR PRN Systolic >180 and HR >75 Lisinopril 10 mg 02/04/25 10:15 02/05/25 08:27 Lisinopril 2.5 Mg Tablet PO 03/06/25 10:14 10 mg QDAY ELVIA Administration Metoclopramide HCl 5 mg 02/01/25 21:00 02/05/25 08:27 Metoclopramide Inj 5 Mg/Ml Vial 2 Ml IVP 03/03/25 20:59 5 mg Q12HR ELVIA Administration Protocol Multivitamins/Minerals 15 ml 01/28/25 11:15 02/03/25 08:44 Multivitamin 15 Ml Udc PO 02/27/25 11:14 15 ml On Hold: 02/03/25 16:54 QDAY ELVIA Administration Comment: PARENTERAL NUTRTION ACTIVE Ondansetron HCl 4 mg 01/29/25 16:31 02/04/25 15:42 Ondansetron Odt 4 Mg Tabrap PO 02/27/25 11:11 4 mg Q6HR PRN Administration NAUSEA OR VOMITING Protocol Pantoprazole Sodium 40 mg 01/25/25 09:00 02/05/25 08:27 Pantoprazole Inj 40 Mg Vial IVP 02/24/25 08:59 40 mg BID ELVIA Administration Sucralfate 1 gm 02/04/25 11:30 02/05/25 11:33 Sucralfate Susp 1 Gm/10 Ml Udc PO 03/06/25 11:29 Not Given ACHS [facility] Thiamine HCl 100 mg 01/28/25 16:30 02/05/25 08:26 Thiamine 100 Mg Tablet PO 02/27/25 16:29 100 mg QDAY ELVIA Administration Vitamin B Complex/Vit C/Folic Acid 1 tab 01/28/25 16:30 02/05/25 08:26 Vitamin B Complex Tablet PO 02/27/25 16:29 1 tab QDAY ELVIA Administration Vitamin D 6,000 iu 01/28/25 16:30 02/05/25 08:26 Cholecalciferol (Vitamin D3) 1,000 Iu Tablet PO 02/27/25 16:29 6,000 iu QDAY ELVIA Administration Plan 74-year-old female with medical history significant for insulin-dependent type 2 diabetes, hypertension, hyperlipidemia, and coronary artery disease presenting with hyperosmolar hyperglycemic state (glucose ~1500, Na 170, osmolality 369) complicated by small bowel ischemia requiring emergent exploratory laparotomy for small bowel resection and anastomosis. Patient downgraded from ICU to medical floor on 01/26 for mgx for ongoing issues. #Normocytic anemia in setting of acute blood loss #Small Bowel Ischemia S/P small bowel resection and anastomosis POD 12 #Dysphagia #Constipation Today labs significant for RBC 2.3, hemoglobin 6.7, hematocrit 20.5 patient received 1 prRBC. Last movement was 6 days ago likely secondary to small bowel resection and anastomosis For he dysphagia the large hiatal hernia 0.8 cm could be causing additional symptoms of dysphagia may need surgical intervention in the future. EGD (02/05/2025)-One benign-appearing, circumferential scarring or stenosis was found in the proximal esophagus and dilation was performed. - Per primary team management plan, continue with laxatives or enemas interventions to support bowel movement - Keep NPO - Continue IV Protonix 40 mg twice daily p.o., - Continue Reglan IV 5 mg twice daily - Continue to monitor CBC - Follow-up posttransfusion H&H, transfuse if Hgb <7 #Insulin-dependent type 2 diabetes, uncontrolled #?Gastroparesis #Acute kidney injury on chronic kidney disease, improving #History of coronary artery disease #Primary hypertension - Manage prior primary team recommendations Patient seen and assessed under supervision of attending physician Dr.Kumar Gisel Taylor MD PGY-1, Internal Medicine Please note: this document was transcribed using voice recognition technology; minor inaccuracies may be present. Attending Provider Attestation/Addendum Drop in hemoglobin hematocrit is due to the ulceration of the mid and distal esophagus which is quite extensive No need for a colonoscopy Agree with the blood transfusion Will monitor the CBC
--- NOTE | 2025-02-05 14:23 | XR_ITS ---
CLINICAL INDICATION: confirm NG placement TECHNIQUE: XR chest 1V post procedure COMPARISON: Chest radiograph 01/24/2025 FINDINGS: A nasogastric tube is present with its tip in the region of the mid gastric antrum, in good position. Limited views of the colon show prominent diffuse fecal matter. No free air. Several anterior abdominal wall skin cornelio are in place to the left of midline. Surgical clips in the right upper quadrant are compatible with cholecystectomy. The cardiomediastinal silhouette is similar compared to prior study, and considered to be within normal limits for portable technique. Redemonstration of bibasilar opacification, greater on the left, showing improvement particularly in the retrocardiac space. Interval improvement in previously visualized interlobular septal thickening related to pulmonary edema. Mild left greater than right pleural effusions are seen. No pneumothorax. No acute osseous abnormality detected. IMPRESSION: Appropriate positioning of the nasogastric tube. Redemonstration of bibasilar opacification, greater on the left, showing improvement particularly in the retrocardiac space. Interval improvement in previously visualized interlobular septal thickening related to pulmonary edema. Mild left greater than right pleural effusions are seen.
[2025-02-05 14:47] LABS: INR 1.0 (0.9-1.3); Partial Thromboplastin Time 28.8 Seconds (22.0-36.0); Prothrombin Time 10.5 Seconds (9.0-12.2)
--- NOTE | 2025-02-05 15:01 | ESPR_ITS ---
<Statement entered by Yuan Benoit MD - 02/06/25 16:15> Patient was seen and examined at bedside. I agree on the assessment and plan on this note as documented by resident José Ritter DO PGY1. Patient seen examined at bedside, had a hemoglobin drop, will be given 1 unit PRBC, discussed with general surgeon and business solutions analyst, likely source of bleeding esophageal ulcers, for chronic constipation per KUB will place NG tube and start patient on GoLytely. Will schedule patient for PICC line placement, patient will likely need complete parenteral nutrition, currently n.p.o. Case discussed with attending Dr. Nura Montero MD PGY-2 Documentation for date of: 02/05/25 Subjective Subjective Interval history: Patient was seen and examined at bedside. No acute events took place overnight. Patient complains of abdominal bloating and discomfort and has not had bowel movement for 6 days. According to market stall vendor at bedside patient has a poor appetite and been taking small bites of food offered to her. Nonetheless patient has been keeping the food down without nausea, vomiting. Denies chest pain. Overnight VSS WNL, currently satting 97% on room air Hgb 6.7 (1 PRBC),? MCV 92, PLT 623 NA 134/133, glucose 257, magnesium 1.5 (R) BUN 37 and cr 0.9, Exam Vital Signs Temp Pulse Resp BP Pulse Ox O2 Del Method O2 Flow Rate 98.8 F 80 18 142/64 H 98 Room Air 4 02/05/25 14:00 02/05/25 14:00 02/05/25 14:00 02/05/25 14:00 02/05/25 11:17 02/05/25 08:15 02/01/25 14:35 FiO2 30 01/27/25 19:00 Narrative Exam General: Elderly, frail, awake and alert. Head: Normocephalic, atraumatic. Eyes: Pupils equally round and reactive to light. Anicteric. Blind in left eye. Heart: Regular rate and rhythm, no murmurs. No JVD. Peripheral pulses 2+ and symmetric in all extremities. Lungs: Clear to auscultation bilaterally. Non-labored respirations, symmetric chest rise, no use of accessory muscles. Abdomen: Abdominal binder present. Wound dressing is clear, dry, and intact. Neurologic: No gross neurological deficit, and patient able to move all 4 extremities. Extremities: No clubbing, cyanosis, or edema. Capillary refill <2 seconds. Skin warm to touch, no mottling. B/L UE pitting edema +2, likely 2/2 IV infiltration Skin: No rashes, lesions, or ulcers. Psychiatric: Cooperative, appropriate mood and affect Objective Labs 02/05/25 16:11 02/05/25 05:18 Labs: Laboratory Results - last 24 hr 02/05/25 02/05/25 05:18 08:56 WBC 6.2 RBC 2.23 L Hgb 6.7 L* D Hct 20.5 L* MCV 92 MCH 30.0 MCHC 32.7 RDW Std Deviation 49.8 H Plt Count 623 H D Neut % (Auto) 51 Lymph % (Auto) 30 Riley % (Auto) 14 H Eos % (Auto) 1 Baso % (Auto) 1 Neut # (Auto) 3.2 Lymph # (Auto) 1.9 Riley # (Auto) 0.8 Eos # (Auto) 0.1 Baso # (Auto) 0.0 Immature Gran # (Auto) 0.19 H Absolute Nucleated RBC 0.10 H Immature Gran % 3 H Nucleated RBC % 2 H PT 10.5 INR 1.0 APTT 28.8 Sodium 134 L Potassium 4.3 Chloride 105 Carbon Dioxide 19.8 L Anion Gap 9 BUN 37 H Creatinine 0.9 Estim Creat Clear Calc 46.5 L eGFR > 60 BUN/Creatinine Ratio 41 H Glucose 257 H D Calculated Osmolality 285 Calcium 8.5 Corrected Calcium 9.4 Phosphorus 2.6 Magnesium 1.5 L Total Bilirubin 0.2 L AST 14 ALT 15 Alkaline Phosphatase 56 Total Protein 4.8 L Albumin 2.9 L D Globulin 1.9 L Albumin/Globulin Ratio 1.5 Blood Type O Positive Antibody Screen NEGATIVE Crossmatch See Detail Blood Bank Wristband ID Yes ABG Interpretation ABG results: 01/23/25 01/24/25 01/24/25 17:13 05:00 18:55 ABG pH 7.09 L* ABG pCO2 60 H ABG pO2 46 L* ABG HCO3 18 L ABG O2 Saturation 77 L ABG Base Excess -11 L VBG pH 7.22 L 7.25 L VBG pCO2 37 39 VBG pO2 137 H 43 D VBG Base Excess -12 L -10 L 01/24/25 20:50 ABG pH 7.24 L D ABG pCO2 44 D ABG pO2 129 H D ABG HCO3 19 L ABG O2 Saturation 100 H ABG Base Excess -8 L VBG pH VBG pCO2 VBG pO2 VBG Base Excess Quality Measures Quality Measures VTE prophylaxis Advance care planning discussed with:: patient Assessment & Plan Assessment Current Active Medications: Generic Name Dose Route Start Last Admin Trade Name Yomaira PRN Reason Stop Dose Admin Acetaminophen 650 mg 01/28/25 11:12 01/29/25 20:23 Acetaminophen 325 Mg Tablet PO 02/27/25 11:11 650 mg Q6H PRN Administration PAIN SCALE 1-3 (mild Benzocaine 1 lozenge 02/03/25 10:21 Benzocaine/Menthol 1 Lozenge PO 03/05/25 10:20 Q4HR PRN throat pain Dextrose 25 ml 01/25/25 08:42 Dextrose 50%-Water Inj 50 Ml Syringe IV 02/24/25 08:41 Q15MIN PRN BG 50-70 responsive npo pt Dextrose 50 ml 01/25/25 08:42 01/29/25 08:11 Dextrose 50%-Water Inj 50 Ml Syringe IV 02/24/25 08:41 50 ml Q15MIN PRN Administration BG <50 OR BG <70 & pt unresponsive Folic Acid 1 mg 01/28/25 16:30 02/05/25 08:26 Folic Acid 1 Mg Tablet PO 02/27/25 16:29 1 mg QDAY ELVIA Administration Glucagon 1 mg 01/25/25 08:42 Glucagon Inj 1 Mg Vial IM Q15MIN PRN BG <70, and no IV access Glycerin 1 each 02/04/25 14:14 02/04/25 16:24 Glycerin, Adult 1 Ea Supp TN 03/06/25 14:13 1 each QDAY PRN Administration CONSTIPATION Heparin Sodium (Porcine) 5,000 unit 01/26/25 21:00 02/05/25 08:28 Heparin Sod Inj 5000 Unit/Ml Vial SC 02/09/25 14:14 Not Given Q12HR [facility] Protocol Fat Emulsion Intravenous 500 mls @ 32 mls/hr 01/29/25 18:00 02/03/25 17:07 Intralipid 20% Iv IV 02/28/25 17:59 32 mls/hr [id number] [facility] Administration Sodium Acetate 40 meq/ 2,036 mls @ 100 mls/hr 02/05/25 11:02 02/05/25 11:41 Potassium Phosphate 24 mmol/ IV 02/06/25 07:23 100 mls/hr Magnesium Sulfate 4 gm/ Amino .[id number] [facility] Administration Acids Amino Acids 1,000 mls @ 100 mls/hr 02/06/25 07:24 Clinimix 4.25/5 IV 02/06/25 17:23 .Q10H [facility] Insulin Degludec 40 unit 02/04/25 09:00 02/05/25 08:28 Insulin Degludec 5 Unit/0.05 Ml (Per 5 Units) SC 03/06/25 08:59 40 unit QDAY [facility] Administration Insulin Human Regular 0 unit 02/04/25 10:39 02/05/25 11:42 Insulin Hum Regular 1 Unit/0.01 Ml (Per Unit) SC 03/05/25 14:14 6 unit Q6HR [facility] Administration Protocol Insulin Human Regular 11 unit 02/05/25 18:00 Insulin Hum Regular 1 Unit/0.01 Ml (Per Unit) SC 03/07/25 17:59 Q6HR [facility] Labetalol HCl 10 mg 01/26/25 11:53 Labetalol Inj 5 Mg/Ml Vial 20 Ml IVP 02/25/25 11:52 Q3HR PRN Systolic >180 and HR >75 Lisinopril 10 mg 02/04/25 10:15 02/05/25 08:27 Lisinopril 2.5 Mg Tablet PO 03/06/25 10:14 10 mg QDAY [facility] Administration Metoclopramide HCl 5 mg 02/01/25 21:00 02/05/25 08:27 Metoclopramide Inj 5 Mg/Ml Vial 2 Ml IVP 03/03/25 20:59 5 mg Q12HR [facility] Administration Protocol Multivitamins/Minerals 15 ml 01/28/25 11:15 02/03/25 08:44 Multivitamin 15 Ml Udc PO 02/27/25 11:14 15 ml On Hold: 02/03/25 16:54 QDAY [facility] Administration Comment: PARENTERAL NUTRTION ACTIVE Ondansetron HCl 4 mg 01/29/25 16:31 02/04/25 15:42 Ondansetron Odt 4 Mg Tabrap PO 02/27/25 11:11 4 mg Q6HR PRN Administration NAUSEA OR VOMITING Protocol Pantoprazole Sodium 40 mg 01/25/25 09:00 02/05/25 08:27 Pantoprazole Inj 40 Mg Vial IVP 02/24/25 08:59 40 mg BID [facility] Administration Sucralfate 1 gm 02/04/25 11:30 02/05/25 11:33 Sucralfate Susp 1 Gm/10 Ml Udc PO 03/06/25 11:29 Not Given ACHS [facility] Thiamine HCl 100 mg 01/28/25 16:30 02/05/25 08:26 Thiamine 100 Mg Tablet PO 02/27/25 16:29 100 mg QDAY [facility] Administration Vitamin B Complex/Vit C/Folic Acid 1 tab 01/28/25 16:30 02/05/25 08:26 Vitamin B Complex Tablet PO 02/27/25 16:29 1 tab QDAY [facility] Administration Vitamin D 6,000 iu 01/28/25 16:30 02/05/25 08:26 Cholecalciferol (Vitamin D3) 1,000 Iu Tablet PO 02/27/25 16:29 6,000 iu QDAY [facility] Administration Plan 74-year-old female with medical history significant for insulin-dependent type 2 diabetes, hypertension, hyperlipidemia, and coronary artery disease presenting with hyperosmolar hyperglycemic state (glucose ~1500, Na 170, osmolality 369) complicated by small bowel ischemia requiring emergent exploratory laparotomy for small bowel resection and anastomosis. Patient downgraded from ICU to medical floor on 01/26 for mgx for ongoing issues. #Dysphagia Likely esophageal dysphagia versus oropharyngeal as the patient has symptoms of regurgitation along with nausea and vomiting and no problem initiating swallowing. Patient having dysphagia to both solid and liquids, regurgitates intake even after EGD dilation of an esophageal stricture (02/03). Patient on PPN for having poor oral intake/low appetite EGD ([id number]) One benign-appearing, circumferential scarring or stenosis was found in the proximal esophagus. Dilation was performed. Many cratered esophageal ulcers oozing blood were found in the middle and lower thirds of the soft. Two biopsies were obtained from the lower third of the esophagus. Diffuse moderate inflammation was found in the entire examined stomach. 2 biopsies were obtained. The second portion of the duodenum was normal. According to Dr Grijalva, Large hiatal hernia 0.8 cm could be causing additional symptoms of dysphagia may need surgical intervention in the future. Plan: - NPO, previously on 6 small meals of PUD, consistent carb, dysphagia 1 pureed daily - Dietitian states patient meets criteria for TPN - Benzocaine/menthol lozenge PO Q4h PRN throat pain - GI, Dr Grijalva, consulted, appreciate recs ? IV Protonix p.o. 40 mg twice daily ? Reglan IV 5 mg bid ? Await pathology results ? Patient has an 8 cm hiatal hernia that may need surgical evaluation in the future #Small Bowel Ischemia S/P small bowel resection and anastomosis Post-op Day 11 The patient is status post exploratory laparotomy with small bowel resection and anastomosis. Post-operative course has been stable thus far. A large portion of ischemic jejunum and ileum was resected 280cm. The remaining jejunum and ileum were successfully anastomosed. CT abdomen (01/28) showed no bowel obstruction, and no evidence of abdominal or pelvic abscess Plan: - Hydromorphone 0.5 mg IV every 4 hours as needed for post-operative pain. - Zofran 4 mg IV every 6 hours as needed for nausea. - Peripheral nutrition, consumer loan manager following, - The patient has multiple risk factors for peripheral artery disease, including coronary artery disease and diabetes. Once clinically stable and post-surgery recovery progresses, an outpatient follow-up with vascular surgery will be necessary for further evaluation, including a CTA to assess for peripheral artery disease. #Normocytic anemia #Hemoglobin 6.7, MCV 92 BUN 37, and CR 0.9, in the light of esophageal ulcers found on the EGD and recent small bowel resection, there is high probability for GI source of bleed. ?Will give 1 unit of PRBC ? Posttransfusion H&H #Insulin-dependent type 2 diabetes #?Gastroparesis Hemoglobin A1c: 13.7. HHS resolved, no longer on insulin drip. Patient on PPN. goal of blood glc 140-180 while hospitalized. Plan: - insulin regular sliding scale step 2 on top of scheduled 8u Q6h - Insulin degludec 40u Qday ? Reglan IV 5 mg bid - Will require need insulin regimen upon D/C #Constipation Patient has not had bowel movement in several days. KUB ordered, showed extensive burden in colon. Avoiding oral medications patient's dysphagia, recent small bowel surgery. According to nurse, patient able to pass gas. - Patient has not had bowel movement since 01/29 Plan: -Started the patient on GoLytely beginning with 100 mL/h and raising the rate to 200 mL/h from the second hour. Patient will not get colonoscopy in the face of recent major bowel surgery. - Glycerin suppository - Mineral oil enema #Acute kidney injury on chronic kidney disease, resolved Pre-renal from dehydration Admission labs: BUN 85, creatinine 3.4 (baseline 1.1?1.3), eGFR 12. Plan: - LR IV 1L @50mL/h x 1 L (completed) - Strict I&Os. - Daily renal panel to trend BUN, Cr, and electrolytes. - Avoid nephrotoxins - Renally dose meds as appropriate. - Nephrology is following. #History of coronary artery disease - Currently stable, no intervention required at this time. - Will continue home meds when stable. #Primary hypertension - Resumed home lisinopril 10 mg daily #Normocytic Anemia #Acute blood loss Transfused 1 unit of pRBCs on 01/15. Plan: - Monitor CBC - Transfuse if Hgb <7 #Hypercalcemia, resolved #Hyperosmolar hyperglycemic state (resolved) #Shock, likely distributive due to small bowel ischemia (resolved) #Sinus tachycardia (resolved) #Anion gap metabolic acidosis (resolved) #Lactic acidosis (resolved) #Hyperosmolar hypernatremia, resolved #Hyperchloremia, resolved Health Maintenance: Disposition: Med Tele, We will continue PPN and attempt to advance diet as tolerated. If no improvement we will have to revisit long-term nutritional goals with patient and family. DVT prophylaxis: Heparin 5000 subQ. GI prophylaxis: Pantoprazole 40mg IV BID. Diet: Pur?ed CODE STATUS: FULL CODE This case was discussed with my attending physician, Dr. banerjee, and senior resident, Dr Benoit. José Ritter DO PGY I Attending Provider Attestation/Addendum I have discussed and was present for the essential components of the history, physical examination, diagnosis, and treatment plan with the resident. I agree with the patient's care as documented by the resident and amended herein by me. Eladio Banerjee DO. Although this document has been carefully reviewed, there may still be some phonetic and other typographical errors. These errors are purely grammatical due to imperfections in the software program and should not be construed in any way to compromise the substance of the patient's medical care during this visit.
[2025-02-05] MEDS: NA SU/NAHCO3/KC/PEG (Golytely) 4,000 ML BTL 4000 ML NG (16:49)
[2025-02-05 16:53] LABS: Hematocrit 29.0 % (36.0-46.0); Hemoglobin 9.8 g/dL (12.0-16.0)
[2025-02-05] MEDS: INSULIN HUM REGULAR 1 UNIT/0.01 ML (PER UNIT) 11 UNIT SC (18:03)
[2025-02-05] MEDS: FAT EMULSIONS 20% IV 500 ML 32 ML IV (18:03)
[2025-02-05] MEDS: HEPARIN SOD INJ 5000 UNIT/ML VIAL SC (20:25)
[2025-02-06] VITALS (7 sets, daily range): BP systolic 121–170; BP diastolic 55–74; PULSE 79–93; RESP 15–19; TEMP 36.4–37.1; O2SAT 97–98; BMI 24.3; BMI 23.7
[2025-02-06] MEDS: INSULIN HUM REGULAR 1 UNIT/0.01 ML (PER UNIT) 11 UNIT SC ×3 (00:46→12:15)
[2025-02-06] MEDS: INSULIN HUM REGULAR 1 UNIT/0.01 ML (PER UNIT) SC ×3 (00:47→12:14)
[2025-02-06 06:24] LABS: Basophils # (Auto) 0.1 Thou/mm3 (0.0-0.2); Basophils % (Auto) 1 % (0-2.5); Eosinophils # (Auto) 0.1 Thou/mm3 (0.0-0.5); Eosinophils % (Auto) 2 % (0-10); Hematocrit 30.6 % (36.0-46.0); Hemoglobin 10.4 g/dL (12.0-16.0); Immature Granulocytes Auto 0.29 Thou/mm3 (0.00-0.00); Lymphocytes # (Auto) 2.1 Thou/mm3 (1.0-4.8); Lymphocytes % (Auto) 31 % (10-50); Mean Corpuscular HGB Conc 34.0 g/dl (31.0-37.0); Mean Corpuscular Hemoglobin 29.6 pg (25.0-35.0); Mean Corpuscular Volume 87 fL (80-100); Monocytes # (Auto) 0.9 Thou/mm3 (0.0-0.8); Monocytes % (Auto) 13 % (0-12); Neutrophils # (Auto) 3.2 Thou/mm3 (1.8-7.7); Neutrophils % (Auto) 49 % (37-80); Nucleated Red Blood Cell # 0.07 Thou/mm3 (0.00-0.00); Nucleated Red Blood Cell % 1 /100 WBC (0); Platelet Count 629 Thou/mm3 (140-440); RDW Standard Deviation 55.7 fL (36.4-46.3); Red Blood Count 3.51 Miln/mm3 (4.00-5.20); White Blood Count 6.7 Thou/mm3 (3.6-11.0)
[2025-02-06 07:02] LABS: Alanine Aminotransferase 21 U/L (10-49); Albumin, Serum 3.3 gm/dL (3.4-4.8); Albumin/Globulin Ratio 1.6 (1.2-2.2); Alkaline Phosphatase 62 U/L (46-116); Anion Gap 12 (7-16); Aspartate Amino Transferase 21 U/L (0-34); BUN/Creatinine Ratio 35 Ratio (12-20); Bilirubin,Total < 0.2 mg/dL (0.3-1.2); Blood Urea Nitrogen 35 mg/dL (9-23); Calcium 8.2 mg/dL (8.3-10.6); Calcium (Corrected) 8.8 mg/dL (8.5-10.1); Carbon Dioxide 19.4 mMol/L (20.0-31.0); Chloride 105 mMol/L (98-107); Creatinine (Component) 1.0 mg/dL (0.6-1.3); Estimated Creatinine Clearance 41.8 mL/min (>60); Globulin 2.1 gm/dL (2.3-3.5); Glucose 217 mg/dL (74-106); Magnesium 2.8 mg/dL (1.6-2.6); Osmolality,Calculated 286 (275-295); Phosphorous 3.3 mg/dL (2.4-5.1); Potassium 4.3 mMol/L (3.4-5.1); Sodium 136 mMol/L (136-145); Total Protein 5.4 gm/dL (5.7-8.2); eGFR 60 See Note
[2025-02-06] MEDS: ONDANSETRON ODT 4 MG TABRAP PO ×2 (07:53→17:34)
[2025-02-06] MEDS: SUCRALFATE SUSP 1 GM/10 ML UDC PO ×4 (07:53→20:45)
[2025-02-06] MEDS: HEPARIN SOD INJ 5000 UNIT/ML VIAL SC ×2 (08:41→20:45)
[2025-02-06] MEDS: METOCLOPRAMIDE INJ 5 MG/ML VIAL 2 ML IVP ×2 (08:41→20:45)
[2025-02-06] MEDS: CHOLECALCIFEROL (Vitamin D3) 1,000 IU TABLET 6000 IU PO (08:42)
[2025-02-06] MEDS: FOLIC ACID 1 MG TABLET PO (08:43)
[2025-02-06] MEDS: THIAMINE 100 MG TABLET PO (08:44)
[2025-02-06] MEDS: INSULIN DEGLUDEC 5 UNIT/0.05 ML (PER 5 UNITS) 40 UNIT SC (08:45)
--- NOTE | 2025-02-06 09:00 | PC.SS ---
Update: Patient remains on PPN. Receiving Golytely via NG tube.
--- NOTE | 2025-02-06 09:58 | XR_ITS ---
Examination: Abdomen AP single view Technique: AP portable supine abdomen, single view Exam date and time: 02/06/2025 at 10:13 a.m. INDICATION: Worsening abdominal distention. COMPARISON: Abdominal radiograph 02/04/2025 at 11:35 a.m. FINDINGS: Interval placement of an NG tube with its tip projecting in the region of the distal gastric antrum, and the sideport in the proximal to mid gastric antrum, in good position. The stomach is decompressed. There is persistent gaseous distention of redundant colon and mildly distended small bowel loops predominantly the lower half of the abdomen. There is persistent moderate fecal matter in the left hemicolon but appearing improved elsewhere in the remainder of the colon. No free air identified. Surgical clips in the right upper quadrant are compatible with cholecystectomy. IMPRESSION: Persistent gaseous distention of colon and small bowel in the lower half of the abdomen, persistent moderate fecal matter in the left hemicolon but apparently less fecal material in the remainder of the colon since prior exam. No free air identified. Interval placement of nasogastric tube in good position.
[2025-02-06] MEDS: AMINO ACIDS 4.25 %/D5W 1,000 ML 100 ML IV (10:03)
--- NOTE | 2025-02-06 13:21 | ESPR_ITS ---
<Statement entered by Abdulkadir Medina MD - 02/07/25 16:23> Patient seen and examined at bedside. I discussed and supervised with the computer science intern physician who took care of this patient. I personally saw and examined the patient. I agree with most of the assessment and plan. Plan of care discussed with attending Dr. Banerjee. Abdulkadir Medina MD PGY-2 Documentation for date of: 02/06/25 Subjective Subjective Interval history: Patient was seen and examined at bedside. No acute events took place overnight. Patient started on GoLytely for stimulation of bowels. The rate had to be reduced to 50mL as patient was regurgitating the fluid. No BM, and no abdominal pain either. Abdomen appears bloated, no tenderness, and no bowel sounds on auscultation. VSS BP hovering about 150s systolic, satting 97% on RA Post transfusion H&H Hgb 9.8, and 10.4, BUN 35 (GI bleed), glucose 217 Exam Vital Signs Temp Pulse Resp BP Pulse Ox O2 Del Method O2 Flow Rate 98.7 F 88 16 121/55 L 97 Room Air 4 02/06/25 12:00 02/06/25 12:00 02/06/25 12:00 02/06/25 12:00 02/06/25 12:00 02/06/25 12:00 02/01/25 14:35 FiO2 30 01/27/25 19:00 Narrative Exam General: Elderly, frail, awake and alert. Head: Normocephalic, atraumatic. Eyes: Pupils equally round and reactive to light. Anicteric. Blind in left eye. Heart: Regular rate and rhythm, no murmurs. No JVD. Peripheral pulses 2+ and symmetric in all extremities. Lungs: Clear to auscultation bilaterally. Non-labored respirations, symmetric chest rise, no use of accessory muscles. Abdomen: Abdominal binder present. Wound dressing is clear, dry, and intact. Abdominal distention, diminished bowel sounds, no tenderness to palpation. Neurologic: No gross neurological deficit, and patient able to move all 4 extremities. Extremities: No clubbing, cyanosis, or edema. Capillary refill <2 seconds. Skin warm to touch, no mottling. B/L UE pitting edema +2, likely 2/2 IV infiltration Skin: No rashes, lesions, or ulcers. Psychiatric: Cooperative, appropriate mood and affect Objective Labs 02/07/25 05:46 02/07/25 05:46 Labs: Laboratory Results - last 24 hr 02/05/25 02/05/25 02/05/25 05:18 08:56 16:11 WBC RBC Hgb 9.8 L D Hct 29.0 L MCV MCH MCHC RDW Std Deviation Plt Count Neut % (Auto) Lymph % (Auto) [place] % (Auto) Eos % (Auto) Baso % (Auto) Neut # (Auto) Lymph # (Auto) [place] # (Auto) Eos # (Auto) Baso # (Auto) Immature Gran # (Auto) Absolute Nucleated RBC Immature Gran % Nucleated RBC % PT 10.5 INR 1.0 APTT 28.8 Sodium Potassium Chloride Carbon Dioxide Anion Gap BUN Creatinine Estim Creat Clear Calc eGFR BUN/Creatinine Ratio Glucose Calculated Osmolality Calcium Corrected Calcium Phosphorus Magnesium Total Bilirubin AST ALT Alkaline Phosphatase Total Protein Albumin Globulin Albumin/Globulin Ratio Crossmatch See Detail 02/06/25 04:37 WBC 6.7 RBC 3.51 L Hgb 10.4 L Hct 30.6 L MCV 87 MCH 29.6 MCHC 34.0 RDW Std Deviation 55.7 H Plt Count 629 H Neut % (Auto) 49 Lymph % (Auto) 31 [place] % (Auto) 13 H Eos % (Auto) 2 Baso % (Auto) 1 Neut # (Auto) 3.2 Lymph # (Auto) 2.1 [place] # (Auto) 0.9 H Eos # (Auto) 0.1 Baso # (Auto) 0.1 Immature Gran # (Auto) 0.29 H Absolute Nucleated RBC 0.07 H Immature Gran % 4 H Nucleated RBC % 1 H PT INR APTT Sodium 136 Potassium 4.3 Chloride 105 Carbon Dioxide 19.4 L Anion Gap 12 BUN 35 H Creatinine 1.0 Estim Creat Clear Calc 41.8 L eGFR 60 BUN/Creatinine Ratio 35 H Glucose 217 H Calculated Osmolality 286 Calcium 8.2 L Corrected Calcium 8.8 Phosphorus 3.3 Magnesium 2.8 H Total Bilirubin < 0.2 L AST 21 ALT 21 Alkaline Phosphatase 62 Total Protein 5.4 L Albumin 3.3 L Globulin 2.1 L Albumin/Globulin Ratio 1.6 Crossmatch ABG Interpretation ABG results: 01/23/25 01/24/25 01/24/25 17:13 05:00 18:55 ABG pH 7.09 L* ABG pCO2 60 H ABG pO2 46 L* ABG HCO3 18 L ABG O2 Saturation 77 L ABG Base Excess -11 L VBG pH 7.22 L 7.25 L VBG pCO2 37 39 VBG pO2 137 H 43 D VBG Base Excess -12 L -10 L 01/24/25 20:50 ABG pH 7.24 L D ABG pCO2 44 D ABG pO2 129 H D ABG HCO3 19 L ABG O2 Saturation 100 H ABG Base Excess -8 L VBG pH VBG pCO2 VBG pO2 VBG Base Excess Quality Measures Quality Measures VTE prophylaxis Advance care planning discussed with:: patient Assessment & Plan Assessment Current Active Medications: Generic Name Dose Route Start Last Admin Trade Name Freq PRN Reason Stop Dose Admin Acetaminophen 650 mg 01/28/25 11:12 01/29/25 20:23 Acetaminophen 325 Mg Tablet PO 02/27/25 11:11 650 mg Q6H PRN Administration PAIN SCALE 1-3 (mild Benzocaine 1 lozenge 02/03/25 10:21 Benzocaine/Menthol 1 Lozenge PO 03/05/25 10:20 Q4HR PRN throat pain Dextrose 25 ml 01/25/25 08:42 Dextrose 50%-Water Inj 50 Ml Syringe IV 02/24/25 08:41 Q15MIN PRN BG 50-70 responsive npo pt Dextrose 50 ml 01/25/25 08:42 01/29/25 08:11 Dextrose 50%-Water Inj 50 Ml Syringe IV 02/24/25 08:41 50 ml Q15MIN PRN Administration BG <50 OR BG <70 & pt unresponsive Folic Acid 1 mg 01/28/25 16:30 02/06/25 08:43 Folic Acid 1 Mg Tablet PO 02/27/25 16:29 1 mg QDAY ELVIA Administration Glucagon 1 mg 01/25/25 08:42 Glucagon Inj 1 Mg Vial IM Q15MIN PRN BG <70, and no IV access Glycerin 1 each 02/04/25 14:14 02/04/25 16:24 Glycerin, Adult 1 Ea Supp W[place] 03/06/25 14:13 1 each QDAY PRN Administration CONSTIPATION Heparin Sodium (Porcine) 5,000 unit 01/26/25 21:00 02/06/25 08:41 Heparin Sod Inj 5000 Unit/Ml Vial SC 02/09/25 14:14 5,000 unit Q12HR ELVIA Administration Protocol Fat Emulsion Intravenous 500 mls @ 32 mls/hr 01/29/25 18:00 02/05/25 18:03 Intralipid 20% Iv IV 02/28/25 17:59 32 mls/hr [id number] ELVIA Administration Amino Acids 1,000 mls @ 100 mls/hr 02/06/25 07:24 02/06/25 10:03 Clinimix 4.25/5 IV 02/06/25 17:23 100 mls/hr .Q10H ELVIA Administration Insulin Degludec 40 unit 02/04/25 09:00 02/06/25 08:45 Insulin Degludec 5 Unit/0.05 Ml (Per 5 Units) SC 03/06/25 08:59 40 unit QDAY ELVIA Administration Insulin Human Regular 0 unit 02/04/25 10:39 02/06/25 12:14 Insulin Hum Regular 1 Unit/0.01 Ml (Per Unit) SC 03/05/25 14:14 4 unit Q6HR [facility] Administration Protocol Insulin Human Regular 11 unit 02/05/25 18:00 02/06/25 12:15 Insulin Hum Regular 1 Unit/0.01 Ml (Per Unit) SC 03/07/25 17:59 11 unit Q6HR ELVIA Administration Labetalol HCl 10 mg 01/26/25 11:53 Labetalol Inj 5 Mg/Ml Vial 20 Ml IVP 02/25/25 11:52 Q3HR PRN Systolic >180 and HR >75 Lisinopril 10 mg 02/04/25 10:15 02/06/25 08:43 Lisinopril 2.5 Mg Tablet PO 03/06/25 10:14 10 mg QDAY ELVIA Administration Metoclopramide HCl 5 mg 02/01/25 21:00 02/06/25 08:41 Metoclopramide Inj 5 Mg/Ml Vial 2 Ml IVP 03/03/25 20:59 5 mg Q12HR ELVIA Administration Protocol Multivitamins/Minerals 15 ml 01/28/25 11:15 02/03/25 08:44 Multivitamin 15 Ml Udc PO 02/27/25 11:14 15 ml On Hold: 02/03/25 16:54 QDAY ELVIA Administration Comment: PARENTERAL NUTRTION ACTIVE Ondansetron HCl 4 mg 01/29/25 16:31 02/06/25 07:53 Ondansetron Odt 4 Mg Tabrap PO 02/27/25 11:11 4 mg Q6HR PRN Administration NAUSEA OR VOMITING Protocol Pantoprazole Sodium 40 mg 01/25/25 09:00 02/06/25 08:42 Pantoprazole Inj 40 Mg Vial IVP 02/24/25 08:59 40 mg BID ELVIA Administration Sucralfate 1 gm 02/04/25 11:30 02/06/25 12:14 Sucralfate Susp 1 Gm/10 Ml Udc PO 03/06/25 11:29 1 gm ACHS ELVIA Administration Thiamine HCl 100 mg 01/28/25 16:30 02/06/25 08:44 Thiamine 100 Mg Tablet PO 02/27/25 16:29 100 mg QDAY ELVIA Administration Vitamin B Complex/Vit C/Folic Acid 1 tab 01/28/25 16:30 02/06/25 08:50 Vitamin B Complex Tablet PO 02/27/25 16:29 Not Given QDAY ELVIA Vitamin D 6,000 iu 01/28/25 16:30 02/06/25 08:42 Cholecalciferol (Vitamin D3) 1,000 Iu Tablet PO 02/27/25 16:29 6,000 iu QDAY ELVIA Administration Plan 74-year-old female with medical history significant for insulin-dependent type 2 diabetes, hypertension, hyperlipidemia, and coronary artery disease presenting with hyperosmolar hyperglycemic state (glucose ~1500, Na 170, osmolality 369) complicated by small bowel ischemia requiring emergent exploratory laparotomy for small bowel resection and anastomosis. Patient downgraded from ICU to medical floor on 01/26 for mgx for ongoing issues. 02/06: Last recorded BM on 01/29. In the face of recent EGD, GI deferred repeat EGD when there was an acute drop in hemoglobin to 6.7. Patient received a unit of PRBC and hemoglobin stabilized at 10. GI recommended GoLytely through NG tube for the prolonged constipation. Started at 200 mL/h, and when she started regurgitating the fluid, it was decreased to 50. Patient met dietary criteria for TPN. A new central line to be established by IR on 02/07 for the delivery of TPN.? #Dysphagia Likely esophageal dysphagia versus oropharyngeal as the patient has symptoms of regurgitation along with nausea and vomiting and no problem initiating swallowing. Patient having dysphagia to both solid and liquids, regurgitates intake even after EGD dilation of an esophageal stricture (02/03). Patient on PPN for having poor oral intake/low appetite EGD ([id number]) One benign-appearing, circumferential scarring or stenosis was found in the proximal esophagus. Dilation was performed. Many cratered esophageal ulcers oozing blood were found in the middle and lower thirds of the soft. Two biopsies were obtained from the lower third of the esophagus. Diffuse moderate inflammation was found in the entire examined stomach. 2 biopsies were obtained. The second portion of the duodenum was normal. According to Dr Grijalva, Large hiatal hernia 0.8 cm could be causing additional symptoms of dysphagia may need surgical intervention in the future. Plan: - New PICC line with 2 lm to be established by IR on 02/07 for the delivery of TPN. ? IV Protonix p.o. 40 mg twice daily ? Reglan IV 5 mg bid - NPO, previously on 6 small meals of PUD, consistent carb, dysphagia 1 pureed daily - Dietitian states patient meets criteria for TPN - Benzocaine/menthol lozenge PO Q4h PRN throat pain - GI, Dr Grijalva, consulted, appreciate recs ? Await pathology results ? Patient has an 8 cm hiatal hernia that may need surgical evaluation in the future #Constipation Patient has not had bowel movement since 01/29. KUB ordered, showed extensive burden in colon. According to nurse, patient able to pass gas. Avoiding oral medications patient's dysphagia, recent small bowel surgery. Started the patient on GoLytely beginning with 100 mL/h and raising the rate to 200 mL/h from the second hour. Patient will not get colonoscopy in the face of recent major bowel surgery. Patient not tolerating it and regurgitating fluids. Plan: - Decrease rate of GoLytely to 50 mL/h through NGT - Glycerin suppository - Mineral oil enema #Small Bowel Ischemia S/P small bowel resection and anastomosis The patient is status post exploratory laparotomy with small bowel resection and anastomosis. Post-operative course has been stable thus far. A large portion of ischemic jejunum and ileum was resected 280cm. The remaining jejunum and ileum were successfully anastomosed. CT abdomen (01/28) showed no bowel obstruction, and no evidence of abdominal or pelvic abscess Plan: - Hydromorphone 0.5 mg IV every 4 hours as needed for post-operative pain. - Zofran 4 mg IV every 6 hours as needed for nausea. - Peripheral nutrition, jewel inserter following, - The patient has multiple risk factors for peripheral artery disease, including coronary artery disease and diabetes. Once clinically stable and post-surgery recovery progresses, an outpatient follow-up with vascular surgery will be necessary for further evaluation, including a CTA to assess for peripheral artery disease. #Normocytic anemia #Hemoglobin 6.7, MCV 92 BUN 37, and CR 0.9, in the light of esophageal ulcers found on the EGD and recent small bowel resection, there is high probability for GI source of bleed. ?Will give 1 unit of PRBC ? Posttransfusion H&H #Insulin-dependent type 2 diabetes #?Gastroparesis Hemoglobin A1c: 13.7. HHS resolved, no longer on insulin drip. Patient on PPN. goal of blood glc 140-180 while hospitalized. Plan: - insulin regular sliding scale step 2 on top of scheduled 8u Q6h - Insulin degludec 40u Qday ? Reglan IV 5 mg bid - Will require need insulin regimen upon D/C #Acute kidney injury on chronic kidney disease, resolved Pre-renal from dehydration Admission labs: BUN 85, creatinine 3.4 (baseline 1.1?1.3), eGFR 12. Plan: - LR IV 1L @50mL/h x 1 L (completed) - Strict I&Os. - Daily renal panel to trend BUN, Cr, and electrolytes. - Avoid nephrotoxins - Renally dose meds as appropriate. - Nephrology is following. #History of coronary artery disease - Currently stable, no intervention required at this time. - Will continue home meds when stable. #Primary hypertension - Resumed home lisinopril 10 mg daily #Normocytic Anemia #Acute blood loss Transfused 1 unit of pRBCs on 01/15. Plan: - Monitor CBC - Transfuse if Hgb <7 #Hypercalcemia, resolved #Hyperosmolar hyperglycemic state (resolved) #Shock, likely distributive due to small bowel ischemia (resolved) #Sinus tachycardia (resolved) #Anion gap metabolic acidosis (resolved) #Lactic acidosis (resolved) #Hyperosmolar hypernatremia, resolved #Hyperchloremia, resolved Health Maintenance: Disposition: Med Tele, We will continue PPN and attempt to advance diet as tolerated. If no improvement we will have to revisit long-term nutritional goals with patient and family. DVT prophylaxis: Heparin 5000 subQ. GI prophylaxis: Pantoprazole 40mg IV BID. Diet: Pur?ed CODE STATUS: FULL CODE This case was discussed with my attending physician, Dr. banerjee, and senior resident, Dr Medina. José Ritter DO PGY I Attending Provider Attestation/Addendum I have discussed and was present for the essential components of the history, physical examination, diagnosis, and treatment plan with the resident. I agree with the patient's care as documented by the resident and amended herein by me. Eladio Banerjee DO. Although this document has been carefully reviewed, there may still be some phonetic and other typographical errors. These errors are purely grammatical due to imperfections in the software program and should not be construed in any way to compromise the substance of the patient's medical care during this visit.
[2025-02-06] MEDS: HEPARIN SOD LOCK SYR 100 UNIT/ML 500 UNIT STFIELD (15:35)
[2025-02-06] MEDS: LIDOCAINE INJ PF 1% 30 ML VIAL INFL (15:35)
--- NOTE | 2025-02-06 15:49 | PC.NURSE ---
Patient in IR getting picc line. Patients VSS. Patients daughter consented for procedure. No signs or symptoms of acute distress. Patient going up to the floor via gurney. Post picc line insertion.
--- NOTE | 2025-02-06 16:20 | PC.NURSE ---
PIcc line did not function. Dr. Radford recommending a tunneled central line/
--- NOTE | 2025-02-06 19:47 | PD.IMPROG ---
Documentation for date of: 02/06/25 Subjective Subjective Interval history: Patient evaluated The rate of the GoLytely had to be turned down Patient does have a 8 cm hiatal hernia Exam Vital Signs Temp Pulse Resp BP Pulse Ox O2 Del Method O2 Flow Rate 98.7 F 79 15 144/66 H 98 Room Air 4 02/06/25 12:00 02/06/25 15:22 02/06/25 15:22 02/06/25 15:22 02/06/25 15:22 02/06/25 15:22 02/01/25 14:35 FiO2 30 01/27/25 19:00 Objective Labs 02/06/25 04:37 02/06/25 04:37 Labs: Laboratory Results - last 24 hr 02/06/25 04:37 WBC 6.7 RBC 3.51 L Hgb 10.4 L Hct 30.6 L MCV 87 MCH 29.6 MCHC 34.0 RDW Std Deviation 55.7 H Plt Count 629 H Neut % (Auto) 49 Lymph % (Auto) 31 [place] % (Auto) 13 H Eos % (Auto) 2 Baso % (Auto) 1 Neut # (Auto) 3.2 Lymph # (Auto) 2.1 [place] # (Auto) 0.9 H Eos # (Auto) 0.1 Baso # (Auto) 0.1 Immature Gran # (Auto) 0.29 H Absolute Nucleated RBC 0.07 H Immature Gran % 4 H Nucleated RBC % 1 H Sodium 136 Potassium 4.3 Chloride 105 Carbon Dioxide 19.4 L Anion Gap 12 BUN 35 H Creatinine 1.0 Estim Creat Clear Calc 41.8 L eGFR 60 BUN/Creatinine Ratio 35 H Glucose 217 H Calculated Osmolality 286 Calcium 8.2 L Corrected Calcium 8.8 Phosphorus 3.3 Magnesium 2.8 H Total Bilirubin < 0.2 L AST 21 ALT 21 Alkaline Phosphatase 62 Total Protein 5.4 L Albumin 3.3 L Globulin 2.1 L Albumin/Globulin Ratio 1.6 Impressions Impression: Status post endoscopic dilatation of the proximal esophagus stricture Distal esophageal ulcers Large hiatal hernia Stool impaction Slow dose GoLytely see if that works ABG Interpretation ABG results: 01/23/25 01/24/25 01/24/25 17:13 05:00 18:55 ABG pH 7.09 L* ABG pCO2 60 H ABG pO2 46 L* ABG HCO3 18 L ABG O2 Saturation 77 L ABG Base Excess -11 L VBG pH 7.22 L 7.25 L VBG pCO2 37 39 VBG pO2 137 H 43 D VBG Base Excess -12 L -10 L 01/24/25 20:50 ABG pH 7.24 L D ABG pCO2 44 D ABG pO2 129 H D ABG HCO3 19 L ABG O2 Saturation 100 H ABG Base Excess -8 L VBG pH VBG pCO2 VBG pO2 VBG Base Excess Assessment & Plan Time Spent With Patient Time: Total time spent is greater than 50% in coordination of care (as documented) at patient's floor/unit and/or counseling patient:
[2025-02-07] VITALS (16 sets, daily range): BP systolic 121–153; BP diastolic 53–65; PULSE 75–97; RESP 16–20; TEMP 36.3–37.3; O2SAT 94–100; BMI 23.7; BMI 13.0
[2025-02-07] MEDS: INSULIN HUM REGULAR 1 UNIT/0.01 ML (PER UNIT) 11 UNIT SC ×4 (05:32→23:41)
[2025-02-07] MEDS: INSULIN HUM REGULAR 1 UNIT/0.01 ML (PER UNIT) SC ×3 (05:58→18:16)
--- NOTE | 2025-02-07 06:09 | PC.NURSE ---
Informed Dr Villalobos regarding patient's complaint of numbness in left arm. Both arms are swollen, left is greater than right. MD stated she would pass the information on to the dayshift. No new orders.
[2025-02-07 06:15] LABS: Basophils # (Auto) 0.1 Thou/mm3 (0.0-0.2); Basophils % (Auto) 1 % (0-2.5); Eosinophils # (Auto) 0.0 Thou/mm3 (0.0-0.5); Eosinophils % (Auto) 1 % (0-10); Hematocrit 28.4 % (36.0-46.0); Hemoglobin 9.3 g/dL (12.0-16.0); Immature Granulocytes Auto 0.26 Thou/mm3 (0.00-0.00); Lymphocytes # (Auto) 1.8 Thou/mm3 (1.0-4.8); Lymphocytes % (Auto) 30 % (10-50); Mean Corpuscular HGB Conc 32.7 g/dl (31.0-37.0); Mean Corpuscular Hemoglobin 29.2 pg (25.0-35.0); Mean Corpuscular Volume 89 fL (80-100); Monocytes # (Auto) 0.8 Thou/mm3 (0.0-0.8); Monocytes % (Auto) 13 % (0-12); Neutrophils # (Auto) 3.2 Thou/mm3 (1.8-7.7); Neutrophils % (Auto) 52 % (37-80); Nucleated Red Blood Cell # 0.02 Thou/mm3 (0.00-0.00); Nucleated Red Blood Cell % 0 /100 WBC (0); Platelet Count 346 Thou/mm3 (140-440); RDW Standard Deviation 55.8 fL (36.4-46.3); Red Blood Count 3.18 Miln/mm3 (4.00-5.20); White Blood Count 6.2 Thou/mm3 (3.6-11.0)
[2025-02-07 06:41] LABS: Alanine Aminotransferase 27 U/L (10-49); Albumin, Serum 3.2 gm/dL (3.4-4.8); Albumin/Globulin Ratio 1.4 (1.2-2.2); Alkaline Phosphatase 67 U/L (46-116); Anion Gap 10 (7-16); Aspartate Amino Transferase 28 U/L (0-34); BUN/Creatinine Ratio 34 Ratio (12-20); Bilirubin,Total 0.3 mg/dL (0.3-1.2); Blood Urea Nitrogen 34 mg/dL (9-23); Calcium 7.6 mg/dL (8.3-10.6); Calcium (Corrected) 8.2 mg/dL (8.5-10.1); Carbon Dioxide 20.2 mMol/L (20.0-31.0); Chloride 103 mMol/L (98-107); Creatinine (Component) 1.0 mg/dL (0.6-1.3); Estimated Creatinine Clearance 38.4 mL/min (>60); Globulin 2.3 gm/dL (2.3-3.5); Glucose 318 mg/dL (74-106); Magnesium 2.0 mg/dL (1.6-2.6); Osmolality,Calculated 285 (275-295); Phosphorous 3.6 mg/dL (2.4-5.1); Potassium 4.1 mMol/L (3.4-5.1); Sodium 133 mMol/L (136-145); Total Protein 5.5 gm/dL (5.7-8.2); eGFR 60 See Note
[2025-02-07] MEDS: SUCRALFATE SUSP 1 GM/10 ML UDC PO ×4 (08:31→20:20)
[2025-02-07] MEDS: CHOLECALCIFEROL (Vitamin D3) 1,000 IU TABLET 6000 IU PO (08:32)
[2025-02-07] MEDS: THIAMINE 100 MG TABLET PO (08:33)
[2025-02-07] MEDS: METOCLOPRAMIDE INJ 5 MG/ML VIAL 2 ML IVP ×2 (08:33→20:21)
[2025-02-07] MEDS: FOLIC ACID 1 MG TABLET PO (08:33)
[2025-02-07] MEDS: HEPARIN SOD INJ 5000 UNIT/ML VIAL SC ×2 (08:34→20:20)
[2025-02-07] MEDS: INSULIN DEGLUDEC 5 UNIT/0.05 ML (PER 5 UNITS) 40 UNIT SC (08:34)
--- NOTE | 2025-02-07 08:48 | PC.SS ---
Follow up note: Requiring a PICC line for TPN. Still needs to transition to feeding. Pt will d/c to [facility] and the insurance authorization is valid for 14 days only.
[2025-02-07] MEDS: VITAMIN B COMPLEX TABLET 1 TAB PO (08:53)
--- NOTE | 2025-02-07 09:58 | XR_ITS ---
EXAM: Fluoroscopic and right IJ central venous catheter placement INDICATION: Malnutrition DATE: 02/07/2025, 2:48 p.m. Fluoroscopy time: 0.9 minutes Dose: 4.66 mGy Procedure: After discussion of risks and benefits informed consent was obtained. Patient was brought to the IR suite and placed supine on the exam table. Preliminary ultrasound evaluation demonstrated the right IJ to be patent. This was targeted for central line placement. The overlying skin was cleaned and draped in normal sterile surgical fashion. 10 cc 1% lidocaine was used for local anesthesia. Using ultrasound and fluoroscopic guidance access of the right IJ was obtained with a micropuncture needle. A 0.018 wire was advanced through the needle into the SVC and the needle was withdrawn. A 5 Ethiopian exchange sheath was placed over the wire and the wire was removed. 0.035 wire was advanced through the existing sheath with fluoroscopic guidance into the IVC and the sheath was removed. The tract was dilated . 8 Ethiopian triple-lumen catheter was placed over the wire and advanced into the right atrium. All 3 lm flushed and aspirated easily. The catheter was secured at the IJ access site with a stay fix catheter. Distal catheter tip was appropriately positioned in the right atrium. There were no immediate complications. IMPRESSION: Successful right IJ central venous catheter placement as above. Catheter is ready for use.
--- NOTE | 2025-02-07 10:53 | PC.NURSE ---
Held golytely and clamped NG tube for IR
--- NOTE | 2025-02-07 11:35 | PC.NURSE ---
gave verbal to discontinue golytely, 850cc remaining from one bottle.
[2025-02-07 13:12] LABS: INR 1.0 (0.9-1.3); Partial Thromboplastin Time 35.1 Seconds (22.0-36.0); Prothrombin Time 10.5 Seconds (9.0-12.2)
--- NOTE | 2025-02-07 13:46 | ESPR_ITS ---
<Statement entered by Abdulkadir Medina MD - 02/07/25 17:02> Patient seen and examined at bedside. I discussed and supervised with the promotions intern physician who took care of this patient. I personally saw and examined the patient. I agree with most of the assessment and plan. Plan of care discussed with attending Dr. Banerjee. Abdulkadir Medina MD PGY-2 Documentation for date of: 02/07/25 Subjective Subjective Interval history: Patient was seen and examined at bedside. No acute events took place overnight. Patient had many large loose stools on GoLytely. The infusion was stopped, after she kept vomiting clear liquid. 2 IV access lines that were established on the left forearm had to be taken out as there was significant nonpitting edema, numbness, and hardening of the skin. No abdominal pain. Abdominal distention improved. Pending establishment of a central line after failing PICC line placement. Exam Vital Signs Temp Pulse Resp BP Pulse Ox O2 Del Method O2 Flow Rate 99.2 F 94 16 126/53 L 94 L Room Air 4 02/07/25 12:00 02/07/25 12:00 02/07/25 12:00 02/07/25 12:00 02/07/25 12:00 02/07/25 12:00 02/01/25 14:35 FiO2 30 01/27/25 19:00 Narrative Exam General: Elderly, frail, awake and alert. Head: Normocephalic, atraumatic. Eyes: Pupils equally round and reactive to light. Anicteric. Blind in left eye. Heart: Regular rate and rhythm, no murmurs. No JVD. Peripheral pulses 2+ and symmetric in all extremities. Lungs: Clear to auscultation bilaterally. Non-labored respirations, symmetric chest rise, no use of accessory muscles. Abdomen: Abdominal binder present. Wound dressing is clear, dry, and intact. Abdominal distention, diminished bowel sounds, no tenderness to palpation. Neurologic: No gross neurological deficit, and patient able to move all 4 extremities. Extremities: No clubbing, cyanosis, or edema. Capillary refill <2 seconds. Skin warm to touch, no mottling. B/L UE pitting edema +2, likely 2/2 IV infiltration Skin: No rashes, lesions, or ulcers. Psychiatric: Cooperative, appropriate mood and affect Objective Labs 02/07/25 05:46 02/07/25 05:46 Labs: Laboratory Results - last 24 hr 02/07/25 02/07/25 05:46 12:44 WBC 6.2 RBC 3.18 L Hgb 9.3 L Hct 28.4 L MCV 89 MCH 29.2 MCHC 32.7 RDW Std Deviation 55.8 H Plt Count 346 D Neut % (Auto) 52 Lymph % (Auto) 30 [place] % (Auto) 13 H Eos % (Auto) 1 Baso % (Auto) 1 Neut # (Auto) 3.2 Lymph # (Auto) 1.8 [place] # (Auto) 0.8 Eos # (Auto) 0.0 Baso # (Auto) 0.1 Immature Gran # (Auto) 0.26 H Absolute Nucleated RBC 0.02 H Immature Gran % 4 H Nucleated RBC % 0 PT 10.5 INR 1.0 APTT 35.1 Sodium 133 L Potassium 4.1 Chloride 103 Carbon Dioxide 20.2 Anion Gap 10 BUN 34 H Creatinine 1.0 Estim Creat Clear Calc 38.4 L eGFR 60 BUN/Creatinine Ratio 34 H Glucose 318 H D Calculated Osmolality 285 Calcium 7.6 L Corrected Calcium 8.2 L Phosphorus 3.6 Magnesium 2.0 Total Bilirubin 0.3 AST 28 ALT 27 Alkaline Phosphatase 67 Total Protein 5.5 L Albumin 3.2 L Globulin 2.3 Albumin/Globulin Ratio 1.4 ABG Interpretation ABG results: 01/23/25 01/24/25 01/24/25 17:13 05:00 18:55 ABG pH 7.09 L* ABG pCO2 60 H ABG pO2 46 L* ABG HCO3 18 L ABG O2 Saturation 77 L ABG Base Excess -11 L VBG pH 7.22 L 7.25 L VBG pCO2 37 39 VBG pO2 137 H 43 D VBG Base Excess -12 L -10 L 01/24/25 20:50 ABG pH 7.24 L D ABG pCO2 44 D ABG pO2 129 H D ABG HCO3 19 L ABG O2 Saturation 100 H ABG Base Excess -8 L VBG pH VBG pCO2 VBG pO2 VBG Base Excess Quality Measures Quality Measures VTE prophylaxis Advance care planning discussed with:: patient Assessment & Plan Assessment Current Active Medications: Generic Name Dose Route Start Last Admin Trade Name Sydq PRN Reason Stop Dose Admin Acetaminophen 650 mg 01/28/25 11:12 01/29/25 20:23 Acetaminophen 325 Mg Tablet PO 02/27/25 11:11 650 mg Q6H PRN Administration PAIN SCALE 1-3 (mild Benzocaine 1 lozenge 02/03/25 10:21 Benzocaine/Menthol 1 Lozenge PO 03/05/25 10:20 Q4HR PRN throat pain Dextrose 25 ml 01/25/25 08:42 Dextrose 50%-Water Inj 50 Ml Syringe IV 02/24/25 08:41 Q15MIN PRN BG 50-70 responsive npo pt Dextrose 50 ml 01/25/25 08:42 01/29/25 08:11 Dextrose 50%-Water Inj 50 Ml Syringe IV 02/24/25 08:41 50 ml Q15MIN PRN Administration BG <50 OR BG <70 & pt unresponsive Folic Acid 1 mg 01/28/25 16:30 02/07/25 08:33 Folic Acid 1 Mg Tablet PO 02/27/25 16:29 1 mg QDAY ELVIA Administration Glucagon 1 mg 01/25/25 08:42 Glucagon Inj 1 Mg Vial IM Q15MIN PRN BG <70, and no IV access Glycerin 1 each 02/04/25 14:14 02/04/25 16:24 Glycerin, Adult 1 Ea Supp TX 03/06/25 14:13 1 each QDAY PRN Administration CONSTIPATION Heparin Sodium (Porcine) 5,000 unit 01/26/25 21:00 02/07/25 08:34 Heparin Sod Inj 5000 Unit/Ml Vial SC 02/09/25 14:14 5,000 unit Q12HR ELVIA Administration Protocol Fat Emulsion Intravenous 500 mls @ 32 mls/hr 01/29/25 18:00 02/05/25 18:03 Intralipid 20% Iv IV 02/28/25 17:59 32 mls/hr [id number] ELVIA Administration Potassium Phosphate 21 mmol/ 2,027 mls @ 100 mls/hr 02/06/25 20:00 02/06/25 20:50 Calcium Gluconate 2 gm/ Amino IV 02/07/25 16:16 100 mls/hr Acids .[id number] ELVIA Administration Insulin Degludec 40 unit 02/04/25 09:00 02/07/25 08:34 Insulin Degludec 5 Unit/0.05 Ml (Per 5 Units) SC 03/06/25 08:59 40 unit QDAY ELVIA Administration Insulin Human Regular 0 unit 02/04/25 10:39 02/07/25 12:07 Insulin Hum Regular 1 Unit/0.01 Ml (Per Unit) SC 03/05/25 14:14 5 unit Q6HR ELVIA Administration Protocol Insulin Human Regular 11 unit 02/05/25 18:00 02/07/25 12:07 Insulin Hum Regular 1 Unit/0.01 Ml (Per Unit) SC 03/07/25 17:59 11 unit Q6HR ELVIA Administration Labetalol HCl 10 mg 01/26/25 11:53 Labetalol Inj 5 Mg/Ml Vial 20 Ml IVP 02/25/25 11:52 Q3HR PRN Systolic >180 and HR >75 Lisinopril 10 mg 02/04/25 10:15 02/07/25 08:31 Lisinopril 2.5 Mg Tablet PO 03/06/25 10:14 10 mg QDAY ELVIA Administration Metoclopramide HCl 5 mg 02/01/25 21:00 02/07/25 08:33 Metoclopramide Inj 5 Mg/Ml Vial 2 Ml IVP 03/03/25 20:59 5 mg Q12HR ELVIA Administration Protocol Multivitamins/Minerals 15 ml 01/28/25 11:15 02/03/25 08:44 Multivitamin 15 Ml Udc PO 02/27/25 11:14 15 ml On Hold: 02/03/25 16:54 QDAY ELVIA Administration Comment: PARENTERAL NUTRTION ACTIVE Ondansetron HCl 4 mg 01/29/25 16:31 02/06/25 17:34 Ondansetron Odt 4 Mg Tabrap PO 02/27/25 11:11 4 mg Q6HR PRN Administration NAUSEA OR VOMITING Protocol Pantoprazole Sodium 40 mg 01/25/25 09:00 02/07/25 08:32 Pantoprazole Inj 40 Mg Vial IVP 02/24/25 08:59 40 mg BID ELVIA Administration Sucralfate 1 gm 02/04/25 11:30 02/07/25 12:06 Sucralfate Susp 1 Gm/10 Ml Udc PO 03/06/25 11:29 1 gm ACHS ELVIA Administration Thiamine HCl 100 mg 01/28/25 16:30 02/07/25 08:33 Thiamine 100 Mg Tablet PO 02/27/25 16:29 100 mg QDAY ELVIA Administration Vitamin B Complex/Vit C/Folic Acid 1 tab 01/28/25 16:30 02/07/25 08:53 Vitamin B Complex Tablet PO 02/27/25 16:29 1 tab QDAY ELVIA Administration Vitamin D 6,000 iu 01/28/25 16:30 02/07/25 08:32 Cholecalciferol (Vitamin D3) 1,000 Iu Tablet PO 02/27/25 16:29 6,000 iu QDAY ELVIA Administration Plan 74-year-old female with medical history significant for insulin-dependent type 2 diabetes, hypertension, hyperlipidemia, and coronary artery disease presenting with hyperosmolar hyperglycemic state (glucose ~1500, Na 170, osmolality 369) complicated by small bowel ischemia requiring emergent exploratory laparotomy for small bowel resection and anastomosis. Patient downgraded from ICU to medical floor on 01/26 for mgx for ongoing issues. 02/06: Last recorded BM on 01/29. In the face of recent EGD, GI deferred repeat EGD when there was an acute drop in hemoglobin to 6.7. Patient received a unit of PRBC and hemoglobin stabilized at 10. GI recommended GoLytely through NG tube for the prolonged constipation. Started at 200 mL/h, and when she started regurgitating the fluid, it was decreased to 50. Patient met dietary criteria for TPN. A new central line to be established by IR on 02/07 for the delivery of TPN.? Patient had multiple large loose stools after ingestion of GoLytely. PT and nurse to move the patient to sitting up on the chair 3 times daily, to help with functional capacity and BM. #Dysphagia Likely esophageal dysphagia versus oropharyngeal as the patient has symptoms of regurgitation along with nausea and vomiting and no problem initiating swallowing. Patient having dysphagia to both solid and liquids, regurgitates intake even after EGD dilation of an esophageal stricture (02/03). Patient on PPN for having poor oral intake/low appetite EGD ([id number]) One benign-appearing, circumferential scarring or stenosis was found in the proximal esophagus. Dilation was performed. Many cratered esophageal ulcers oozing blood were found in the middle and lower thirds of the soft. Two biopsies were obtained from the lower third of the esophagus. Diffuse moderate inflammation was found in the entire examined stomach. 2 biopsies were obtained. The second portion of the duodenum was normal. According to Dr Grijalva, Large hiatal hernia 0.8 cm could be causing additional symptoms of dysphagia may need surgical intervention in the future. Plan: - New central line to be established by IR on 02/07 for the delivery of TPN. ? IV Protonix p.o. 40 mg twice daily ? Reglan IV 5 mg bid - NPO, previously on 6 small meals of PUD, consistent carb, dysphagia 1 pureed daily - Dietitian states patient meets criteria for TPN - Benzocaine/menthol lozenge PO Q4h PRN throat pain - GI, Dr Grijalva, consulted, appreciate recs ? Await pathology results ? Patient has an 8 cm hiatal hernia that may need surgical evaluation in the future #Constipation, improving Patient had not had bowel movement since 01/29 for 8days. KUB ordered, showed extensive burden in colon. Patient had multiple large loose stools after ingestion of GoLytely beginning at an infusion rate of 200 mL/h, and later decreasing to 50mL/h when she started vomiting on. -PT and nurse to move the patient to sitting up on the chair 3 times daily, to help with BM. #Small Bowel Ischemia S/P small bowel resection and anastomosis The patient is status post exploratory laparotomy with small bowel resection and anastomosis. Post-operative course has been stable thus far. A large portion of ischemic jejunum and ileum was resected 280cm. The remaining jejunum and ileum were successfully anastomosed. CT abdomen (01/28) showed no bowel obstruction, and no evidence of abdominal or pelvic abscess Plan: - Hydromorphone 0.5 mg IV every 4 hours as needed for post-operative pain. - Zofran 4 mg IV every 6 hours as needed for nausea. 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 Once clinically stable and post-surgery recovery progresses, an outpatient follow-up with vascular surgery will be necessary for further evaluation, including a CTA to assess for peripheral artery disease. #Normocytic anemia #Hemoglobin 6.7, MCV 92 BUN 37, and CR 0.9, in the light of esophageal ulcers found on the EGD and recent small bowel resection, there is high probability for GI source of bleed. ?Will give 1 unit of PRBC ? Posttransfusion H&H #Insulin-dependent type 2 diabetes #?Gastroparesis Hemoglobin A1c: 13.7. HHS resolved, no longer on insulin drip. Patient on PPN. goal of blood glc 140-180 while hospitalized. Plan: - insulin regular sliding scale step 2 on top of scheduled 8u Q6h - Insulin degludec 40u Qday ? Reglan IV 5 mg bid - Will require need insulin regimen upon D/C #Acute kidney injury on chronic kidney disease, resolved Pre-renal from dehydration Admission labs: BUN 85, creatinine 3.4 (baseline 1.1?1.3), eGFR 12. Plan: - LR IV 1L @50mL/h x 1 L (completed) - Strict I&Os. - Daily renal panel to trend BUN, Cr, and electrolytes. - Avoid nephrotoxins - Renally dose meds as appropriate. - Nephrology is following. #History of coronary artery disease - Currently stable, no intervention required at this time. - Will continue home meds when stable. #Primary hypertension - Resumed home lisinopril 10 mg daily #Normocytic Anemia #Acute blood loss Transfused 1 unit of pRBCs on 01/15. Plan: - Monitor CBC - Transfuse if Hgb <7 #Hypercalcemia, resolved #Hyperosmolar hyperglycemic state (resolved) #Shock, likely distributive due to small bowel ischemia (resolved) #Sinus tachycardia (resolved) #Anion gap metabolic acidosis (resolved) #Lactic acidosis (resolved) #Hyperosmolar hypernatremia, resolved #Hyperchloremia, resolved Health Maintenance: Disposition: Med Tele, We will continue PPN and attempt to advance diet as tolerated. If no improvement we will have to revisit long-term nutritional goals with patient and family. DVT prophylaxis: Heparin 5000 subQ. GI prophylaxis: Pantoprazole 40mg IV BID. Diet: Pur?ed CODE STATUS: FULL CODE This case was discussed with my attending physician, Dr. banerjee, and senior resident, Dr Medina. José Ritter DO PGY I Attending Provider Attestation/Addendum I have discussed and was present for the essential components of the history, physical examination, diagnosis, and treatment plan with the resident. I agree with the patient's care as documented by the resident and amended herein by me. Eladio Banrejee DO. Although this document has been carefully reviewed, there may still be some phonetic and other typographical errors. These errors are purely grammatical due to imperfections in the software program and should not be construed in any way to compromise the substance of the patient's medical care during this visit.
[2025-02-07 14:49] LABS: Triglycerides 167 mg/dL (30-150)
[2025-02-07] MEDS: HEPARIN SOD LOCK SYR 100 UNIT/ML 500 UNIT STFIELD (15:00)
[2025-02-07] MEDS: LIDOCAINE INJ PF 1% 30 ML VIAL INFL (15:00)
--- NOTE | 2025-02-07 17:01 | ESPR_ITS ---
Documentation for date of: 02/07/25 Subjective Subjective Interval history: Several bowel movements with the GoLytely It had to be stopped because of the vomiting but still good results Abdominal distention is much less Exam Vital Signs Temp Pulse Resp BP Pulse Ox O2 Del Method O2 Flow Rate 99.2 F 80 16 148/57 H 99 Room Air 4 02/07/25 12:00 02/07/25 15:45 02/07/25 15:45 02/07/25 15:45 02/07/25 15:45 02/07/25 15:45 02/01/25 14:35 FiO2 30 01/27/25 19:00 Objective Labs 02/07/25 05:46 02/07/25 05:46 Labs: Laboratory Results - last 24 hr 02/07/25 02/07/25 05:46 12:44 WBC 6.2 RBC 3.18 L Hgb 9.3 L Hct 28.4 L MCV 89 MCH 29.2 MCHC 32.7 RDW Std Deviation 55.8 H Plt Count 346 D Neut % (Auto) 52 Lymph % (Auto) 30 [place] % (Auto) 13 H Eos % (Auto) 1 Baso % (Auto) 1 Neut # (Auto) 3.2 Lymph # (Auto) 1.8 [place] # (Auto) 0.8 Eos # (Auto) 0.0 Baso # (Auto) 0.1 Immature Gran # (Auto) 0.26 H Absolute Nucleated RBC 0.02 H Immature Gran % 4 H Nucleated RBC % 0 PT 10.5 INR 1.0 APTT 35.1 Sodium 133 L Potassium 4.1 Chloride 103 Carbon Dioxide 20.2 Anion Gap 10 BUN 34 H Creatinine 1.0 Estim Creat Clear Calc 38.4 L eGFR 60 BUN/Creatinine Ratio 34 H Glucose 318 H D Calculated Osmolality 285 Calcium 7.6 L Corrected Calcium 8.2 L Phosphorus 3.6 Magnesium 2.0 Total Bilirubin 0.3 AST 28 ALT 27 Alkaline Phosphatase 67 Total Protein 5.5 L Albumin 3.2 L Globulin 2.3 Albumin/Globulin Ratio 1.4 Triglycerides 167 H Impressions Impression: Improved abdominal distention after GoLytely Nausea vomiting could be due to gastric outlet obstruction intermittent caused by the large gastric hiatal hernia Continue to monitor Repeat KUB ABG Interpretation ABG results: 01/23/25 01/24/25 01/24/25 17:13 05:00 18:55 ABG pH 7.09 L* ABG pCO2 60 H ABG pO2 46 L* ABG HCO3 18 L ABG O2 Saturation 77 L ABG Base Excess -11 L VBG pH 7.22 L 7.25 L VBG pCO2 37 39 VBG pO2 137 H 43 D VBG Base Excess -12 L -10 L 01/24/25 20:50 ABG pH 7.24 L D ABG pCO2 44 D ABG pO2 129 H D ABG HCO3 19 L ABG O2 Saturation 100 H ABG Base Excess -8 L VBG pH VBG pCO2 VBG pO2 VBG Base Excess Assessment & Plan Time Spent With Patient Time: Total time spent is greater than 50% in coordination of care (as documented) at patient's floor/unit and/or counseling patient:
--- NOTE | 2025-02-07 17:03 | XR_ITS ---
Examination: Abdomen AP single view Technique: AP portable supine abdomen, single view (2 images total) Exam date and time: 02/07/2025 at 5:10 p.m. INDICATION: Abdominal distention today COMPARISON: Abdominal radiograph 02/06/2025 FINDINGS: There is moderate gaseous distention of the redundant colon, mildly improved on the right and more pronounced on the left since prior exam. Mild gaseous distention of small bowel identified in the lower quadrants, left side greater than right, mildly improved in the interim. No free air is seen. The tip of the enteric tube is reidentified to the right of midline, slightly more advanced than projecting in the region of the pylorus or duodenal bulb potentially. Surgical clips in the right upper quadrant are compatible with cholecystectomy. Bibasilar pleural effusions and atelectasis noted. Ventral skin cornelio are present in the upper abdomen along the midline. Surgical clips in the right upper quadrant are compatible with cholecystectomy. IMPRESSION: Moderate gaseous distention of colon with redistribution of gas compared to prior exam. Mildly less pronounced gaseous distention of small bowel in the lower quadrants. No findings concerning for high-grade bowel obstruction. No evidence for pneumoperitoneum.
[2025-02-07] MEDS: FAT EMULSIONS 20% IV 500 ML 32 ML IV (18:00)
[2025-02-08] VITALS (8 sets, daily range): BP systolic 129–167; BP diastolic 58–71; PULSE 81–97; RESP 15–23; TEMP 36.1–37.4; O2SAT 97–98; BMI 23.7
[2025-02-08] MEDS: INSULIN HUM REGULAR 1 UNIT/0.01 ML (PER UNIT) SC ×3 (05:32→23:17)
[2025-02-08] MEDS: INSULIN HUM REGULAR 1 UNIT/0.01 ML (PER UNIT) 11 UNIT SC ×2 (05:32→12:03)
[2025-02-08 06:41] LABS: Basophils # (Auto) 0.0 Thou/mm3 (0.0-0.2); Basophils % (Auto) 1 % (0-2.5); Eosinophils # (Auto) 0.1 Thou/mm3 (0.0-0.5); Eosinophils % (Auto) 2 % (0-10); Hematocrit 27.1 % (36.0-46.0); Hemoglobin 9.0 g/dL (12.0-16.0); Immature Granulocytes Auto 0.21 Thou/mm3 (0.00-0.00); Lymphocytes # (Auto) 1.5 Thou/mm3 (1.0-4.8); Lymphocytes % (Auto) 26 % (10-50); Mean Corpuscular HGB Conc 33.2 g/dl (31.0-37.0); Mean Corpuscular Hemoglobin 29.3 pg (25.0-35.0); Mean Corpuscular Volume 88 fL (80-100); Monocytes # (Auto) 0.8 Thou/mm3 (0.0-0.8); Monocytes % (Auto) 14 % (0-12); Neutrophils # (Auto) 3.2 Thou/mm3 (1.8-7.7); Neutrophils % (Auto) 54 % (37-80); Nucleated Red Blood Cell # 0.00 Thou/mm3 (0.00-0.00); Nucleated Red Blood Cell % 0 /100 WBC (0); Platelet Count 492 Thou/mm3 (140-440); RDW Standard Deviation 54.0 fL (36.4-46.3); Red Blood Count 3.07 Miln/mm3 (4.00-5.20); White Blood Count 5.8 Thou/mm3 (3.6-11.0)
[2025-02-08 07:24] LABS: Alanine Aminotransferase 18 U/L (10-49); Albumin, Serum 3.1 gm/dL (3.4-4.8); Albumin/Globulin Ratio 1.5 (1.2-2.2); Alkaline Phosphatase 60 U/L (46-116); Anion Gap 12 (7-16); Aspartate Amino Transferase 16 U/L (0-34); BUN/Creatinine Ratio 31 Ratio (12-20); Bilirubin,Total < 0.2 mg/dL (0.3-1.2); Blood Urea Nitrogen 31 mg/dL (9-23); Calcium 8.6 mg/dL (8.3-10.6); Calcium (Corrected) 9.3 mg/dL (8.5-10.1); Carbon Dioxide 19.6 mMol/L (20.0-31.0); Chloride 106 mMol/L (98-107); Creatinine (Component) 1.0 mg/dL (0.6-1.3); Estimated Creatinine Clearance 38.4 mL/min (>60); Globulin 2.1 gm/dL (2.3-3.5); Glucose 230 mg/dL (74-106); Magnesium 1.7 mg/dL (1.6-2.6); Osmolality,Calculated 289 (275-295); Phosphorous 3.9 mg/dL (2.4-5.1); Potassium 3.9 mMol/L (3.4-5.1); Sodium 138 mMol/L (136-145); Total Protein 5.2 gm/dL (5.7-8.2); eGFR 60 See Note
[2025-02-08] MEDS: INSULIN DEGLUDEC 5 UNIT/0.05 ML (PER 5 UNITS) 40 UNIT SC (09:19)
[2025-02-08] MEDS: SUCRALFATE SUSP 1 GM/10 ML UDC PO ×4 (09:21→20:24)
[2025-02-08] MEDS: THIAMINE 100 MG TABLET PO (09:21)
[2025-02-08] MEDS: FOLIC ACID 1 MG TABLET PO (09:22)
[2025-02-08] MEDS: CHOLECALCIFEROL (Vitamin D3) 1,000 IU TABLET 6000 IU PO (09:25)
[2025-02-08] MEDS: VITAMIN B COMPLEX TABLET 1 TAB PO (09:26)
[2025-02-08] MEDS: HEPARIN SOD INJ 5000 UNIT/ML VIAL SC ×2 (09:27→20:24)
[2025-02-08] MEDS: METOCLOPRAMIDE INJ 5 MG/ML VIAL 2 ML IVP ×2 (09:27→20:24)
[2025-02-08] MEDS: Magnesium Sulfate 2 GM Ivpb 2 GM/50 ML BAG IV (09:54)
[2025-02-08] MEDS: POTASSIUM CHL 10 mEq IVPB 10 MEQ/100 ML BAG 100 MEQ IV (09:55)
--- NOTE | 2025-02-08 13:44 | ESPR_ITS ---
<Statement entered by Abdulkadir Medina MD - 02/08/25 15:45> Patient seen and examined at bedside. I discussed and supervised with the manager internet retails sales physician who took care of this patient. I personally saw and examined the patient. I agree with most of the assessment and plan. Patient seen and examined at bedside, resting comfortably. Has had multiple bowel movements, abdomen soft, nontender. Patient stated on pureed diet, well tolerated, NG tube removed. Patient made to sit up in chair, also ambulated around room. Plan of care discussed with attending Dr. Banerjee. Abdulkadir Medina MD PGY-2 Documentation for date of: 02/08/25 Subjective Subjective Interval history: Patient was seen and examined at bedside. No acute events took place overnight. Pt had BM this AM. Pt recieves TPN through central line. She is able to take CLD and well without regurgitation, according to nurse. Patient is being moved up to chair 3 times daily. No abdominal pain. Abdominal distention improved. Exam Vital Signs Temp Pulse Resp BP Pulse Ox O2 Del Method O2 Flow Rate 99.3 F 89 145 H 141/59 H 97 Room Air 4 02/08/25 12:00 02/08/25 12:00 02/08/25 12:00 02/08/25 12:00 02/08/25 12:00 02/08/25 12:00 02/01/25 14:35 FiO2 30 01/27/25 19:00 Narrative Exam General: Elderly, frail, awake and alert. Head: Normocephalic, atraumatic. Eyes: Pupils equally round and reactive to light. Anicteric. Blind in left eye. Heart: Regular rate and rhythm, no murmurs. No JVD. Peripheral pulses 2+ and symmetric in all extremities. Lungs: Clear to auscultation bilaterally. Non-labored respirations, symmetric chest rise, no use of accessory muscles. Abdomen: Abdominal binder present. Wound dressing is clear, dry, and intact. Abdominal distention, present but diminished bowel sounds, no tenderness to palpation. Neurologic: No gross neurological deficit, and patient able to move all 4 extremities. Extremities: No clubbing, cyanosis, or edema. Capillary refill <2 seconds. Skin warm to touch, no mottling. B/L UE pitting edema +2, likely 2/2 IV infiltration Skin: No rashes, lesions, or ulcers. Psychiatric: Cooperative, appropriate mood and affect Objective Labs 02/08/25 06:00 02/08/25 06:00 Labs: Laboratory Results - last 24 hr 02/07/25 02/08/25 05:46 06:00 WBC 5.8 RBC 3.07 L Hgb 9.0 L Hct 27.1 L MCV 88 MCH 29.3 MCHC 33.2 RDW Std Deviation 54.0 H Plt Count 492 H D Neut % (Auto) 54 Lymph % (Auto) 26 [place] % (Auto) 14 H Eos % (Auto) 2 Baso % (Auto) 1 Neut # (Auto) 3.2 Lymph # (Auto) 1.5 [place] # (Auto) 0.8 Eos # (Auto) 0.1 Baso # (Auto) 0.0 Immature Gran # (Auto) 0.21 H Absolute Nucleated RBC 0.00 Immature Gran % 4 H Nucleated RBC % 0 Sodium 138 Potassium 3.9 Chloride 106 Carbon Dioxide 19.6 L Anion Gap 12 BUN 31 H Creatinine 1.0 Estim Creat Clear Calc 38.4 L eGFR 60 BUN/Creatinine Ratio 31 H Glucose 230 H D Calculated Osmolality 289 Calcium 8.6 Corrected Calcium 9.3 Phosphorus 3.9 Magnesium 1.7 Total Bilirubin < 0.2 L AST 16 ALT 18 Alkaline Phosphatase 60 Total Protein 5.2 L Albumin 3.1 L Globulin 2.1 L Albumin/Globulin Ratio 1.5 Triglycerides 167 H ABG Interpretation ABG results: 01/23/25 01/24/25 01/24/25 17:13 05:00 18:55 ABG pH 7.09 L* ABG pCO2 60 H ABG pO2 46 L* ABG HCO3 18 L ABG O2 Saturation 77 L ABG Base Excess -11 L VBG pH 7.22 L 7.25 L VBG pCO2 37 39 VBG pO2 137 H 43 D VBG Base Excess -12 L -10 L 01/24/25 20:50 ABG pH 7.24 L D ABG pCO2 44 D ABG pO2 129 H D ABG HCO3 19 L ABG O2 Saturation 100 H ABG Base Excess -8 L VBG pH VBG pCO2 VBG pO2 VBG Base Excess Quality Measures Quality Measures VTE prophylaxis Advance care planning discussed with:: patient Assessment & Plan Assessment Current Active Medications: Generic Name Dose Route Start Last Admin Trade Name Freq PRN Reason Stop Dose Admin Acetaminophen 650 mg 01/28/25 11:12 01/29/25 20:23 Acetaminophen 325 Mg Tablet PO 02/27/25 11:11 650 mg Q6H PRN Administration PAIN SCALE 1-3 (mild Benzocaine 1 lozenge 02/03/25 10:21 Benzocaine/Menthol 1 Lozenge PO 03/05/25 10:20 Q4HR PRN throat pain Dextrose 25 ml 01/25/25 08:42 Dextrose 50%-Water Inj 50 Ml Syringe IV 02/24/25 08:41 Q15MIN PRN BG 50-70 responsive npo pt Dextrose 50 ml 01/25/25 08:42 01/29/25 08:11 Dextrose 50%-Water Inj 50 Ml Syringe IV 02/24/25 08:41 50 ml Q15MIN PRN Administration BG <50 OR BG <70 & pt unresponsive Folic Acid 1 mg 01/28/25 16:30 02/08/25 09:22 Folic Acid 1 Mg Tablet PO 02/27/25 16:29 1 mg QDAY ELVIA Administration Glucagon 1 mg 01/25/25 08:42 Glucagon Inj 1 Mg Vial IM Q15MIN PRN BG <70, and no IV access Glycerin 1 each 02/04/25 14:14 02/04/25 16:24 Glycerin, Adult 1 Ea Supp VT 03/06/25 14:13 1 each QDAY PRN Administration CONSTIPATION Heparin Sodium (Porcine) 5,000 unit 01/26/25 21:00 02/08/25 09:27 Heparin Sod Inj 5000 Unit/Ml Vial SC 02/09/25 14:14 5,000 unit Q12HR ELVIA Administration Protocol Fat Emulsion Intravenous 500 mls @ 32 mls/hr 01/29/25 18:00 02/07/25 18:00 Intralipid 20% Iv IV 02/28/25 17:59 32 mls/hr [id number] ELVIA Administration Calcium Gluconate 1 gm/ 1,020 mls @ 30 mls/hr 02/07/25 18:00 02/08/25 02:00 Multivitamins/Minerals 10 ml/ IV 02/08/25 17:59 55 mls/hr Amino Acids/Electrolytes QDAY@1800 ONE Infusion Insulin Degludec 40 unit 02/04/25 09:00 02/08/25 09:19 Insulin Degludec 5 Unit/0.05 Ml (Per 5 Units) SC 03/06/25 08:59 40 unit QDAY ELVIA Administration Insulin Human Regular 0 unit 02/04/25 10:39 02/08/25 11:59 Insulin Hum Regular 1 Unit/0.01 Ml (Per Unit) SC 03/05/25 14:14 5 unit Q6HR ELVIA Administration Protocol Insulin Human Regular 11 unit 02/05/25 18:00 02/08/25 12:03 Insulin Hum Regular 1 Unit/0.01 Ml (Per Unit) SC 03/07/25 17:59 11 unit Q6HR ELVIA Administration Labetalol HCl 10 mg 01/26/25 11:53 Labetalol Inj 5 Mg/Ml Vial 20 Ml IVP 02/25/25 11:52 Q3HR PRN Systolic >180 and HR >75 Lisinopril 10 mg 02/04/25 10:15 02/08/25 09:23 Lisinopril 2.5 Mg Tablet PO 03/06/25 10:14 10 mg QDAY ELVIA Administration Metoclopramide HCl 5 mg 02/01/25 21:00 02/08/25 09:27 Metoclopramide Inj 5 Mg/Ml Vial 2 Ml IVP 03/03/25 20:59 5 mg Q12HR ELVIA Administration Protocol Multivitamins/Minerals 15 ml 01/28/25 11:15 02/03/25 08:44 Multivitamin 15 Ml Udc PO 02/27/25 11:14 15 ml On Hold: 02/03/25 16:54 QDAY ELVIA Administration Comment: PARENTERAL NUTRTION ACTIVE Ondansetron HCl 4 mg 01/29/25 16:31 02/06/25 17:34 Ondansetron Odt 4 Mg Tabrap PO 02/27/25 11:11 4 mg Q6HR PRN Administration NAUSEA OR VOMITING Protocol Pantoprazole Sodium 40 mg 01/25/25 09:00 02/08/25 09:26 Pantoprazole Inj 40 Mg Vial IVP 02/24/25 08:59 40 mg BID ELVIA Administration Sucralfate 1 gm 02/04/25 11:30 02/08/25 11:37 Sucralfate Susp 1 Gm/10 Ml Udc PO 03/06/25 11:29 1 gm ACHS ELVIA Administration Thiamine HCl 100 mg 01/28/25 16:30 02/08/25 09:21 Thiamine 100 Mg Tablet PO 02/27/25 16:29 100 mg QDAY ELVIA Administration Vitamin B Complex/Vit C/Folic Acid 1 tab 01/28/25 16:30 02/08/25 09:26 Vitamin B Complex Tablet PO 02/27/25 16:29 1 tab QDAY ELVIA Administration Vitamin D 6,000 iu 01/28/25 16:30 02/08/25 09:25 Cholecalciferol (Vitamin D3) 1,000 Iu Tablet PO 02/27/25 16:29 6,000 iu QDAY ELVIA Administration Plan 74-year-old female with medical history significant for insulin-dependent type 2 diabetes, hypertension, hyperlipidemia, and coronary artery disease presenting with hyperosmolar hyperglycemic state (glucose ~1500, Na 170, osmolality 369) complicated by small bowel ischemia requiring emergent exploratory laparotomy for small bowel resection and anastomosis. Patient downgraded from ICU to medical floor on 01/26 for mgx for ongoing issues. #Dysphagia Likely esophageal dysphagia versus oropharyngeal as the patient has symptoms of regurgitation along with nausea and vomiting and no problem initiating swallowing. Patient having dysphagia to both solid and liquids, regurgitates intake even after EGD dilation of an esophageal stricture (02/03). Patient on PPN for having poor oral intake/low appetite EGD ([id number]) One benign-appearing, circumferential scarring or stenosis was found in the proximal esophagus. Dilation was performed. Many cratered esophageal ulcers oozing blood were found in the middle and lower thirds of the soft. Two biopsies were obtained from the lower third of the esophagus. Diffuse moderate inflammation was found in the entire examined stomach. 2 biopsies were obtained. The second portion of the duodenum was normal. According to Dr Grijalva, Large hiatal hernia 0.8 cm could be causing additional symptoms of dysphagia may need surgical intervention in the future. Plan: - Patient receives TPN through central line. - Clear liquid diet ? IV Protonix p.o. 40 mg twice daily ? Reglan IV 5 mg bid - NPO, previously on 6 small meals of PUD, consistent carb, dysphagia 1 pureed daily - Dietitian states patient meets criteria for TPN - Benzocaine/menthol lozenge PO Q4h PRN throat pain - GI, Dr Grijalva, consulted, appreciate recs ? Await pathology results ? Patient has an 8 cm hiatal hernia that may need surgical evaluation in the future #Constipation, improving Patient had not had bowel movement since 01/29 for 8days. KUB ordered, showed extensive burden in colon. Patient had multiple large loose stools after ingestion of GoLytely beginning at an infusion rate of 200 mL/h, and later decreasing to 50mL/h when she started vomiting on. -PT and nurse to move the patient to sitting up on the chair 3 times daily, to help with BM. -MiraLax 17g Qday #Small Bowel Ischemia S/P small bowel resection and anastomosis The patient is status post exploratory laparotomy with small bowel resection and anastomosis. Post-operative course has been stable thus far. A large portion of ischemic jejunum and ileum was resected 280cm. The remaining jejunum and ileum were successfully anastomosed. CT abdomen (01/28) showed no bowel obstruction, and no evidence of abdominal or pelvic abscess Plan: - Hydromorphone 0.5 mg IV every 4 hours as needed for post-operative pain. - Zofran 4 mg IV every 6 hours as needed for nausea. - Peripheral nutrition, director of sales marketing following, - The patient has multiple risk factors for peripheral artery disease, including coronary artery disease and diabetes. Once clinically stable and post-surgery recovery progresses, an outpatient follow-up with vascular surgery will be necessary for further evaluation, including a CTA to assess for peripheral artery disease. #Normocytic anemia #Hemoglobin 6.7, MCV 92 BUN 37, and CR 0.9, in the light of esophageal ulcers found on the EGD and recent small bowel resection, there is high probability for GI source of bleed. ?Will give 1 unit of PRBC ? Posttransfusion H&H #Insulin-dependent type 2 diabetes #?Gastroparesis Hemoglobin A1c: 13.7. HHS resolved, no longer on insulin drip. Patient on PPN. goal of blood glc 140-180 while hospitalized. Plan: - insulin regular sliding scale step 1 on top of scheduled 12u Q6h - Insulin degludec 44u Qday ? Reglan IV 5 mg bid - Will require need insulin regimen upon D/C #History of coronary artery disease - Currently stable, no intervention required at this time. - Will continue home meds when stable. #Primary hypertension - Resumed home lisinopril 10 mg daily #Normocytic Anemia #Acute blood loss, resolved Transfused 1 unit of pRBCs on 01/15. Plan: - Monitor CBC - Transfuse if Hgb <7 #Hypercalcemia, resolved #Hyperosmolar hyperglycemic state (resolved) #Shock, likely distributive due to small bowel ischemia (resolved) #Sinus tachycardia (resolved) #Anion gap metabolic acidosis (resolved) #Lactic acidosis (resolved) #Hyperosmolar hypernatremia, resolved #Hyperchloremia, resolved #Acute kidney injury on chronic kidney disease, resolved Health Maintenance: Disposition: Med Tele, We will continue PPN and attempt to advance diet as tolerated. If no improvement we will have to revisit long-term nutritional goals with patient and family. DVT prophylaxis: Heparin 5000 subQ. GI prophylaxis: Pantoprazole 40mg IV BID. Diet: Pur?ed CODE STATUS: FULL CODE This case was discussed with my attending physician, Dr. Banerjee, and senior resident, Dr Medina. José Ritter DO PGY I Attending Provider Attestation/Addendum I have discussed and was present for the essential components of the history, physical examination, diagnosis, and treatment plan with the resident. I agree with the patient's care as documented by the resident and amended herein by me. Eladio Banerjee DO. Although this document has been carefully reviewed, there may still be some phonetic and other typographical errors. These errors are purely grammatical due to imperfections in the software program and should not be construed in any way to compromise the substance of the patient's medical care during this visit. Patient seen and evaluated this AM. Patient doing very well today, no acute events overnight, 1 bowel movement reported. Patient was able to tolerate her oral pur?ed diet today, hence we will remove the NG tube. The patient has also gotten out of bed walk short distances and will get up to a chair, nursing staff has been notified. Will slowly attempt to wean the patient off the TPN. We also informed the patient if somehow she cannot eat or has difficulty, PEG tube would be an option as she cannot stay on TPN for prolonged period of time. She understood however tolerated diet well. Will continue to monitor closely, hopeful discharge in 2 to 3 days pending further clinical improvement.
[2025-02-08] MEDS: POLYETHYLENE GLYCOL 17 GM PACKET PO (15:33)
--- NOTE | 2025-02-08 17:46 | ESPR_ITS ---
Documentation for date of: 02/08/25 Subjective Subjective Interval history: Passing flatus had a bowel movement this morning Tolerating clear liquid diet Exam Vital Signs Temp Pulse Resp BP Pulse Ox O2 Del Method O2 Flow Rate 97.7 F 83 17 130/58 L 98 Room Air 4 02/08/25 16:00 02/08/25 16:00 02/08/25 16:00 02/08/25 16:00 02/08/25 16:00 02/08/25 16:00 02/01/25 14:35 FiO2 30 01/27/25 19:00 Objective Labs 02/08/25 06:00 02/08/25 06:00 Labs: Laboratory Results - last 24 hr 02/08/25 06:00 WBC 5.8 RBC 3.07 L Hgb 9.0 L Hct 27.1 L MCV 88 MCH 29.3 MCHC 33.2 RDW Std Deviation 54.0 H Plt Count 492 H D Neut % (Auto) 54 Lymph % (Auto) 26 [place] % (Auto) 14 H Eos % (Auto) 2 Baso % (Auto) 1 Neut # (Auto) 3.2 Lymph # (Auto) 1.5 [place] # (Auto) 0.8 Eos # (Auto) 0.1 Baso # (Auto) 0.0 Immature Gran # (Auto) 0.21 H Absolute Nucleated RBC 0.00 Immature Gran % 4 H Nucleated RBC % 0 Sodium 138 Potassium 3.9 Chloride 106 Carbon Dioxide 19.6 L Anion Gap 12 BUN 31 H Creatinine 1.0 Estim Creat Clear Calc 38.4 L eGFR 60 BUN/Creatinine Ratio 31 H Glucose 230 H D Calculated Osmolality 289 Calcium 8.6 Corrected Calcium 9.3 Phosphorus 3.9 Magnesium 1.7 Total Bilirubin < 0.2 L AST 16 ALT 18 Alkaline Phosphatase 60 Total Protein 5.2 L Albumin 3.1 L Globulin 2.1 L Albumin/Globulin Ratio 1.5 Impressions Impression: Status post GoLytely for stool impaction Tolerating liquid diet Large hiatal hernia still is an issue could be still causing intermittent gastric outlet obstruction Patient tolerating clear liquid diet ABG Interpretation ABG results: 01/23/25 01/24/25 01/24/25 17:13 05:00 18:55 ABG pH 7.09 L* ABG pCO2 60 H ABG pO2 46 L* ABG HCO3 18 L ABG O2 Saturation 77 L ABG Base Excess -11 L VBG pH 7.22 L 7.25 L VBG pCO2 37 39 VBG pO2 137 H 43 D VBG Base Excess -12 L -10 L 01/24/25 20:50 ABG pH 7.24 L D ABG pCO2 44 D ABG pO2 129 H D ABG HCO3 19 L ABG O2 Saturation 100 H ABG Base Excess -8 L VBG pH VBG pCO2 VBG pO2 VBG Base Excess Assessment & Plan Time Spent With Patient Time: Total time spent is greater than 50% in coordination of care (as documented) at patient's floor/unit and/or counseling patient:
[2025-02-08] MEDS: INSULIN HUM REGULAR 1 UNIT/0.01 ML (PER UNIT) 12 UNIT SC (23:16)
[2025-02-09] VITALS (10 sets, daily range): BP systolic 127–158; BP diastolic 63–94; PULSE 75–97; RESP 12–28; TEMP 36.1–36.6; O2SAT 98–99
[2025-02-09] MEDS: INSULIN HUM REGULAR 1 UNIT/0.01 ML (PER UNIT) 12 UNIT SC ×4 (05:24→23:11)
[2025-02-09] MEDS: INSULIN HUM REGULAR 1 UNIT/0.01 ML (PER UNIT) SC ×4 (05:25→23:11)
[2025-02-09 05:40] LABS: Basophils # (Auto) 0.0 Thou/mm3 (0.0-0.2); Basophils % (Auto) 1 % (0-2.5); Eosinophils # (Auto) 0.1 Thou/mm3 (0.0-0.5); Eosinophils % (Auto) 2 % (0-10); Hematocrit 24.3 % (36.0-46.0); Immature Granulocytes Auto 0.18 Thou/mm3 (0.00-0.00); Lymphocytes # (Auto) 1.8 Thou/mm3 (1.0-4.8); Lymphocytes % (Auto) 37 % (10-50); Mean Corpuscular HGB Conc 32.9 g/dl (31.0-37.0); Mean Corpuscular Hemoglobin 29.0 pg (25.0-35.0); Mean Corpuscular Volume 88 fL (80-100); Monocytes # (Auto) 0.8 Thou/mm3 (0.0-0.8); Monocytes % (Auto) 16 % (0-12); Neutrophils # (Auto) 2.0 Thou/mm3 (1.8-7.7); Neutrophils % (Auto) 41 % (37-80); Nucleated Red Blood Cell # 0.00 Thou/mm3 (0.00-0.00); Nucleated Red Blood Cell % 0 /100 WBC (0); Platelet Count 425 Thou/mm3 (140-440); RDW Standard Deviation 53.1 fL (36.4-46.3); Red Blood Count 2.76 Miln/mm3 (4.00-5.20); White Blood Count 4.9 Thou/mm3 (3.6-11.0)
[2025-02-09 05:41] LABS: Hemoglobin 8.0 g/dL (12.0-16.0)
[2025-02-09 06:06] LABS: Alanine Aminotransferase 20 U/L (10-49); Albumin, Serum 2.9 gm/dL (3.4-4.8); Albumin/Globulin Ratio 1.5 (1.2-2.2); Alkaline Phosphatase 58 U/L (46-116); Anion Gap 7 (7-16); Aspartate Amino Transferase 15 U/L (0-34); BUN/Creatinine Ratio 29 Ratio (12-20); Bilirubin,Total 0.2 mg/dL (0.3-1.2); Blood Urea Nitrogen 26 mg/dL (9-23); Calcium 8.4 mg/dL (8.3-10.6); Calcium (Corrected) 9.3 mg/dL (8.5-10.1); Carbon Dioxide 23.9 mMol/L (20.0-31.0); Chloride 107 mMol/L (98-107); Creatinine (Component) 0.9 mg/dL (0.6-1.3); Estimated Creatinine Clearance 47.6 mL/min (>60); Globulin 2.0 gm/dL (2.3-3.5); Glucose 219 mg/dL (74-106); Magnesium 1.8 mg/dL (1.6-2.6); Osmolality,Calculated 287 (275-295); Phosphorous 3.1 mg/dL (2.4-5.1); Potassium 4.4 mMol/L (3.4-5.1); Sodium 138 mMol/L (136-145); Total Protein 4.9 gm/dL (5.7-8.2); eGFR > 60 See Note
[2025-02-09] MEDS: SUCRALFATE SUSP 1 GM/10 ML UDC PO ×4 (07:34→21:02)
[2025-02-09] MEDS: METOCLOPRAMIDE INJ 5 MG/ML VIAL 2 ML IVP ×3 (09:20→21:02)
[2025-02-09] MEDS: HEPARIN SOD INJ 5000 UNIT/ML VIAL SC ×2 (09:21→21:02)
[2025-02-09] MEDS: INSULIN DEGLUDEC 5 UNIT/0.05 ML (PER 5 UNITS) 44 UNIT SC (09:24)
[2025-02-09] MEDS: CHOLECALCIFEROL (Vitamin D3) 1,000 IU TABLET 6000 IU PO (09:25)
[2025-02-09] MEDS: THIAMINE 100 MG TABLET PO (09:28)
[2025-02-09] MEDS: FOLIC ACID 1 MG TABLET PO (09:28)
[2025-02-09] MEDS: POLYETHYLENE GLYCOL 17 GM PACKET PO (09:29)
[2025-02-09] MEDS: VITAMIN B COMPLEX TABLET 1 TAB PO (09:29)
--- NOTE | 2025-02-09 12:40 | PD.RESPRO ---
Documentation for date of: 02/09/25 Subjective Subjective Interval history: Patient seen examined at bedside, no overnight events. Patient was started on diet yesterday, has good oral intake around 50%, did not have a bowel movement, discussed with adjunct professor will increase Reglan to 5 mg 3 times daily, will be given milk of mag x 1, increase MiraLAX to 34 g daily. Patient continues to be on total parenteral nutrition, will try to wean off as patient's oral intake improves Exam Vital Signs Temp Pulse Resp BP Pulse Ox O2 Del Method O2 Flow Rate 97.2 F 97 14 145/75 H 98 Room Air 4 02/09/25 07:48 02/09/25 09:28 02/09/25 07:48 02/09/25 09:28 02/09/25 07:48 02/08/25 16:00 02/01/25 14:35 FiO2 30 01/27/25 19:00 Narrative Exam General: Elderly, frail, awake and alert. Head: Normocephalic, atraumatic. Eyes: Pupils equally round and reactive to light. Anicteric. Blind in left eye. Heart: Regular rate and rhythm, no murmurs. No JVD. Peripheral pulses 2+ and symmetric in all extremities. Lungs: Clear to auscultation bilaterally. Non-labored respirations, symmetric chest rise, no use of accessory muscles. Abdomen: Abdominal binder present. Wound dressing is clear, dry, and intact. Abdominal distention, present but diminished bowel sounds, no tenderness to palpation. Neurologic: No gross neurological deficit, and patient able to move all 4 extremities. Extremities: No clubbing, cyanosis, or edema. Capillary refill <2 seconds. Skin warm to touch, no mottling. B/L UE pitting edema +2, likely 2/2 IV infiltration Skin: No rashes, lesions, or ulcers. Psychiatric: Cooperative, appropriate mood and affect Objective Labs 02/10/25 05:08 02/10/25 05:08 Labs: Laboratory Results - last 24 hr 02/09/25 04:59 WBC 4.9 RBC 2.76 L Hgb 8.0 L Hct 24.3 L MCV 88 MCH 29.0 MCHC 32.9 RDW Std Deviation 53.1 H Plt Count 425 D Neut % (Auto) 41 Lymph % (Auto) 37 [place] % (Auto) 16 H Eos % (Auto) 2 Baso % (Auto) 1 Neut # (Auto) 2.0 Lymph # (Auto) 1.8 [place] # (Auto) 0.8 Eos # (Auto) 0.1 Baso # (Auto) 0.0 Immature Gran # (Auto) 0.18 H Absolute Nucleated RBC 0.00 Immature Gran % 4 H Nucleated RBC % 0 Sodium 138 Potassium 4.4 D Chloride 107 Carbon Dioxide 23.9 Anion Gap 7 BUN 26 H Creatinine 0.9 Estim Creat Clear Calc 47.6 L eGFR > 60 BUN/Creatinine Ratio 29 H Glucose 219 H Calculated Osmolality 287 Calcium 8.4 Corrected Calcium 9.3 Phosphorus 3.1 Magnesium 1.8 Total Bilirubin 0.2 L AST 15 ALT 20 Alkaline Phosphatase 58 Total Protein 4.9 L Albumin 2.9 L Globulin 2.0 L Albumin/Globulin Ratio 1.5 ABG Interpretation ABG results: 01/23/25 01/24/25 01/24/25 17:13 05:00 18:55 ABG pH 7.09 L* ABG pCO2 60 H ABG pO2 46 L* ABG HCO3 18 L ABG O2 Saturation 77 L ABG Base Excess -11 L VBG pH 7.22 L 7.25 L VBG pCO2 37 39 VBG pO2 137 H 43 D VBG Base Excess -12 L -10 L 01/24/25 20:50 ABG pH 7.24 L D ABG pCO2 44 D ABG pO2 129 H D ABG HCO3 19 L ABG O2 Saturation 100 H ABG Base Excess -8 L VBG pH VBG pCO2 VBG pO2 VBG Base Excess Quality Measures Quality Measures VTE prophylaxis Advance care planning discussed with:: patient Assessment & Plan Assessment Current Active Medications: Generic Name Dose Route Start Last Admin Trade Name Freq PRN Reason Stop Dose Admin Acetaminophen 650 mg 01/28/25 11:12 01/29/25 20:23 Acetaminophen 325 Mg Tablet PO 02/27/25 11:11 650 mg Q6H PRN Administration PAIN SCALE 1-3 (mild Benzocaine 1 lozenge 02/03/25 10:21 Benzocaine/Menthol 1 Lozenge PO 03/05/25 10:20 Q4HR PRN throat pain Dextrose 25 ml 01/25/25 08:42 Dextrose 50%-Water Inj 50 Ml Syringe IV 02/24/25 08:41 Q15MIN PRN BG 50-70 responsive npo pt Dextrose 50 ml 01/25/25 08:42 01/29/25 08:11 Dextrose 50%-Water Inj 50 Ml Syringe IV 02/24/25 08:41 50 ml Q15MIN PRN Administration BG <50 OR BG <70 & pt unresponsive Folic Acid 1 mg 01/28/25 16:30 02/09/25 09:28 Folic Acid 1 Mg Tablet PO 02/27/25 16:29 1 mg QDAY ELVIA Administration Glucagon 1 mg 01/25/25 08:42 Glucagon Inj 1 Mg Vial IM Q15MIN PRN BG <70, and no IV access Glycerin 1 each 02/04/25 14:14 02/04/25 16:24 Glycerin, Adult 1 Ea Supp DC 03/06/25 14:13 1 each QDAY PRN Administration CONSTIPATION Heparin Sodium (Porcine) 5,000 unit 01/26/25 21:00 02/09/25 09:21 Heparin Sod Inj 5000 Unit/Ml Vial SC 02/15/25 14:14 5,000 unit Q12HR ELVIA Administration Protocol Fat Emulsion Intravenous 500 mls @ 32 mls/hr 01/29/25 18:00 02/07/25 18:00 Intralipid 20% Iv IV 02/28/25 17:59 32 mls/hr [id number] ELVIA Administration Magnesium Sulfate 2 gm/ 2,034 mls @ 55 mls/hr 02/08/25 18:00 02/08/25 18:26 Multivitamins/Minerals 10 ml/ IV 02/09/25 17:59 55 mls/hr Potassium Acetate 40 meq/ QDAY@1800 ELVIA Administration Amino Acids Magnesium Sulfate 2 gm/ 2,021 mls @ 55 mls/hr 02/09/25 18:00 Potassium Phosphate 21 mmol/ IV 02/10/25 17:59 Multivitamins/Minerals 10 ml/ QDAY@1800 ELVIA Amino Acids Insulin Degludec 44 unit 02/09/25 09:00 02/09/25 09:24 Insulin Degludec 5 Unit/0.05 Ml (Per 5 Units) [place] 03/11/25 08:59 44 unit QDAY ELVIA Administration Insulin Human Regular 12 unit 02/08/25 18:00 02/09/25 11:57 Insulin Hum Regular 1 Unit/0.01 Ml (Per Unit) [place] 03/10/25 17:59 12 unit Q6HR ELVIA Administration Insulin Human Regular 0 unit 02/08/25 14:26 02/09/25 12:00 Insulin Hum Regular 1 Unit/0.01 Ml (Per Unit) [place] 03/05/25 14:14 3 unit Q6HR ELVIA Administration Protocol Labetalol HCl 10 mg 01/26/25 11:53 Labetalol Inj 5 Mg/Ml Vial 20 Ml IVP 02/25/25 11:52 Q3HR PRN Systolic >180 and HR >75 Lisinopril 10 mg 02/10/25 09:00 Lisinopril 20 Mg Tablet PO 03/12/25 08:59 QDAY ELVIA Metoclopramide HCl 5 mg 02/01/25 21:00 02/09/25 09:20 Metoclopramide Inj 5 Mg/Ml Vial 2 Ml IVP 03/03/25 20:59 5 mg Q12HR ELVIA Administration Protocol Multivitamins/Minerals 15 ml 01/28/25 11:15 02/03/25 08:44 Multivitamin 15 Ml Udc PO 02/27/25 11:14 15 ml On Hold: 02/03/25 16:54 QDAY ELVIA Administration Comment: PARENTERAL NUTRTION ACTIVE Ondansetron HCl 4 mg 01/29/25 16:31 02/06/25 17:34 Ondansetron Odt 4 Mg Tabrap PO 02/27/25 11:11 4 mg Q6HR PRN Administration NAUSEA OR VOMITING Protocol Pantoprazole Sodium 40 mg 01/25/25 09:00 02/09/25 09:18 Pantoprazole Inj 40 Mg Vial IVP 02/24/25 08:59 40 mg BID ELVIA Administration Polyethylene Glycol 17 gm 02/09/25 09:00 02/09/25 09:29 Polyethylene Glycol 17 Gm Packet PO 03/11/25 08:59 17 gm QDAY ELVIA Administration Sucralfate 1 gm 02/04/25 11:30 02/09/25 11:18 Sucralfate Susp 1 Gm/10 Ml Udc PO 03/06/25 11:29 1 gm ACHS ELVIA Administration Thiamine HCl 100 mg 01/28/25 16:30 02/09/25 09:28 Thiamine 100 Mg Tablet PO 02/27/25 16:29 100 mg QDAY ELVIA Administration Vitamin B Complex/Vit C/Folic Acid 1 tab 01/28/25 16:30 02/09/25 09:29 Vitamin B Complex Tablet PO 02/27/25 16:29 1 tab QDAY ELVIA Administration Vitamin D 6,000 iu 01/28/25 16:30 02/09/25 09:25 Cholecalciferol (Vitamin D3) 1,000 Iu Tablet PO 02/27/25 16:29 6,000 iu QDAY ELVIA Administration Plan 74-year-old female with medical history significant for insulin-dependent type 2 diabetes, hypertension, hyperlipidemia, and coronary artery disease presenting with hyperosmolar hyperglycemic state (glucose ~1500, Na 170, osmolality 369) complicated by small bowel ischemia requiring emergent exploratory laparotomy for small bowel resection and anastomosis. Patient downgraded from ICU to medical floor on 01/26 for mgx for ongoing issues. #Dysphagia #Failure to thrive #Postop requiring total parenteral nutrition Likely esophageal dysphagia versus oropharyngeal as the patient has symptoms of regurgitation along with nausea and vomiting and no problem initiating swallowing. Patient having dysphagia to both solid and liquids, regurgitates intake even after EGD dilation of an esophageal stricture (02/03). Patient on PPN for having poor oral intake/low appetite EGD ([id number]) One benign-appearing, circumferential scarring or stenosis was found in the proximal esophagus. Dilation was performed. Many cratered esophageal ulcers oozing blood were found in the middle and lower thirds of the soft. Two biopsies were obtained from the lower third of the esophagus. Diffuse moderate inflammation was found in the entire examined stomach. 2 biopsies were obtained. The second portion of the duodenum was normal. According to Dr Grijalva, Large hiatal hernia 0.8 cm could be causing additional symptoms of dysphagia may need surgical intervention in the future. Plan: - Patient receives TPN through central line. - Pur?ed diet ? IV Protonix p.o. 40 mg twice daily ? Reglan IV 5 mg 3 times daily - Benzocaine/menthol lozenge PO Q4h PRN throat pain - GI, Dr Grijalva, consulted, appreciate recs ? Await pathology results ? Patient has an 8 cm hiatal hernia that may need surgical evaluation in the future #Constipation, improving Patient had not had bowel movement since 01/29 for 8days. KUB ordered, showed extensive burden in colon. Patient had multiple large loose stools after ingestion of GoLytely beginning at an infusion rate of 200 mL/h, and later decreasing to 50mL/h when she started vomiting on. -PT and nurse to move the patient to sitting up on the chair 3 times daily, to help with BM. - Increase MiraLAX to 34 g daily, milk of mag as needed #Small Bowel Ischemia S/P small bowel resection and anastomosis The patient is status post exploratory laparotomy with small bowel resection and anastomosis. Post-operative course has been stable thus far. A large portion of ischemic jejunum and ileum was resected 280cm. The remaining jejunum and ileum were successfully anastomosed. CT abdomen (01/28) showed no bowel obstruction, and no evidence of abdominal or pelvic abscess Plan: - Zofran 4 mg IV every 6 hours as needed for nausea. - Peripheral nutrition, sales merchandiser following, - The patient has multiple risk factors for peripheral artery disease, including coronary artery disease and diabetes. Once clinically stable and post-surgery recovery progresses, an outpatient follow-up with vascular surgery will be necessary for further evaluation, including a CTA to assess for peripheral artery disease. #Normocytic anemia BUN 37, and CR 0.9, in the light of esophageal ulcers found on the EGD and recent small bowel resection, there is high probability for GI source of bleed. Did require 1 unit of PRBC ? Posttransfusion H&H has been stable continue to monitor #Insulin-dependent type 2 diabetes #?Gastroparesis Hemoglobin A1c: 13.7. HHS resolved, no longer on insulin drip. Patient on PPN. goal of blood glc 140-180 while hospitalized. Plan: - insulin regular sliding scale step 2 on top of scheduled 12u Q6h - Insulin degludec 44u Qday ? Reglan IV 5 mg 3 times daily - Will require need insulin regimen upon D/C #History of coronary artery disease - Currently stable, no intervention required at this time. - Will continue home meds when stable. #Primary hypertension - Resumed home lisinopril 10 mg daily #Normocytic Anemia #Acute blood loss, resolved Transfused 1 unit of pRBCs on 01/15. Plan: - Monitor CBC - Transfuse if Hgb <7 #Hypercalcemia, resolved #Hyperosmolar hyperglycemic state (resolved) #Shock, likely distributive due to small bowel ischemia (resolved) #Sinus tachycardia (resolved) #Anion gap metabolic acidosis (resolved) #Lactic acidosis (resolved) #Hyperosmolar hypernatremia, resolved #Hyperchloremia, resolved #Acute kidney injury on chronic kidney disease, resolved Health Maintenance: Disposition: Med Tele, We will continue PPN and attempt to advance diet as tolerated. If no improvement we will have to revisit long-term nutritional goals with patient and family. DVT prophylaxis: Heparin 5000 subQ. GI prophylaxis: Pantoprazole 40mg IV BID. Diet: Pur?ed CODE STATUS: FULL CODE Case discussed with Attending Physician DO Yuan Ochoa MD Internal Medicine PGY-2 Disclaimer: This note was dictated by speech recognition. Minor errors in physician/allergy/immunology may be present due to voice recognition software. Attending Provider Attestation/Addendum I have discussed and was present for the essential components of the history, physical examination, diagnosis, and treatment plan with the resident. I agree with the patient's care as documented by the resident and amended herein by me. Eladio Banerjee DO. Although this document has been carefully reviewed, there may still be some phonetic and other typographical errors. These errors are purely grammatical due to imperfections in the software program and should not be construed in any way to compromise the substance of the patient's medical care during this visit.
[2025-02-09] MEDS: Milk Of Magnesia Susp 30 ML UDC PO (15:19)
--- NOTE | 2025-02-09 19:52 | ESPR_ITS ---
Documentation for date of: 02/09/25 Subjective Subjective Interval history: Patient evaluated tolerating well 50% of the diet If that continues the TPN can be tapered down Large hiatal hernia still a question Case discussed with the internal medicine team Start the patient on MiraLAX and increase her Reglan to 5 mg p.o. 3 times daily Exam Vital Signs Temp Pulse Resp BP Pulse Ox O2 Del Method O2 Flow Rate 97.9 F 93 12 141/76 H 98 Nasal Cannula 4 02/09/25 15:25 02/09/25 16:00 02/09/25 15:25 02/09/25 15:25 02/09/25 15:25 02/09/25 15:25 02/01/25 14:35 FiO2 30 01/27/25 19:00 Objective Labs 02/09/25 04:59 02/09/25 04:59 Labs: Laboratory Results - last 24 hr 02/09/25 04:59 WBC 4.9 RBC 2.76 L Hgb 8.0 L Hct 24.3 L MCV 88 MCH 29.0 MCHC 32.9 RDW Std Deviation 53.1 H Plt Count 425 D Neut % (Auto) 41 Lymph % (Auto) 37 [place] % (Auto) 16 H Eos % (Auto) 2 Baso % (Auto) 1 Neut # (Auto) 2.0 Lymph # (Auto) 1.8 [place] # (Auto) 0.8 Eos # (Auto) 0.1 Baso # (Auto) 0.0 Immature Gran # (Auto) 0.18 H Absolute Nucleated RBC 0.00 Immature Gran % 4 H Nucleated RBC % 0 Sodium 138 Potassium 4.4 D Chloride 107 Carbon Dioxide 23.9 Anion Gap 7 BUN 26 H Creatinine 0.9 Estim Creat Clear Calc 47.6 L eGFR > 60 BUN/Creatinine Ratio 29 H Glucose 219 H Calculated Osmolality 287 Calcium 8.4 Corrected Calcium 9.3 Phosphorus 3.1 Magnesium 1.8 Total Bilirubin 0.2 L AST 15 ALT 20 Alkaline Phosphatase 58 Total Protein 4.9 L Albumin 2.9 L Globulin 2.0 L Albumin/Globulin Ratio 1.5 Impressions Impression: Large hiatal hernia might be causing gastric outlet obstruction Stool impaction requiring GoLytely now on MiraLAX Continue current management ABG Interpretation ABG results: 01/23/25 01/24/25 01/24/25 17:13 05:00 18:55 ABG pH 7.09 L* ABG pCO2 60 H ABG pO2 46 L* ABG HCO3 18 L ABG O2 Saturation 77 L ABG Base Excess -11 L VBG pH 7.22 L 7.25 L VBG pCO2 37 39 VBG pO2 137 H 43 D VBG Base Excess -12 L -10 L 01/24/25 20:50 ABG pH 7.24 L D ABG pCO2 44 D ABG pO2 129 H D ABG HCO3 19 L ABG O2 Saturation 100 H ABG Base Excess -8 L VBG pH VBG pCO2 VBG pO2 VBG Base Excess Assessment & Plan Time Spent With Patient Time: Total time spent is greater than 50% in coordination of care (as documented) at patient's floor/unit and/or counseling patient:
[2025-02-10] VITALS (8 sets, daily range): BP systolic 133–152; BP diastolic 60–72; PULSE 83–97; RESP 15–18; TEMP 36.2–36.9; O2SAT 97–99; BMI 25.7
[2025-02-10] MEDS: INSULIN HUM REGULAR 1 UNIT/0.01 ML (PER UNIT) SC ×4 (05:47→23:44)
[2025-02-10] MEDS: METOCLOPRAMIDE INJ 5 MG/ML VIAL 2 ML IVP ×3 (05:47→20:52)
[2025-02-10] MEDS: INSULIN HUM REGULAR 1 UNIT/0.01 ML (PER UNIT) 12 UNIT SC ×2 (05:47→12:09)
[2025-02-10 05:56] LABS: Basophils # (Auto) 0.1 Thou/mm3 (0.0-0.2); Basophils % (Auto) 1 % (0-2.5); Eosinophils # (Auto) 0.1 Thou/mm3 (0.0-0.5); Eosinophils % (Auto) 2 % (0-10); Hematocrit 25.9 % (36.0-46.0); Immature Granulocytes Auto 0.21 Thou/mm3 (0.00-0.00); Lymphocytes # (Auto) 1.7 Thou/mm3 (1.0-4.8); Lymphocytes % (Auto) 27 % (10-50); Mean Corpuscular HGB Conc 32.0 g/dl (31.0-37.0); Mean Corpuscular Hemoglobin 28.7 pg (25.0-35.0); Mean Corpuscular Volume 90 fL (80-100); Monocytes # (Auto) 0.8 Thou/mm3 (0.0-0.8); Monocytes % (Auto) 13 % (0-12); Neutrophils # (Auto) 3.3 Thou/mm3 (1.8-7.7); Neutrophils % (Auto) 54 % (37-80); Nucleated Red Blood Cell # 0.00 Thou/mm3 (0.00-0.00); Nucleated Red Blood Cell % 0 /100 WBC (0); Platelet Count 401 Thou/mm3 (140-440); RDW Standard Deviation 53.3 fL (36.4-46.3); Red Blood Count 2.89 Miln/mm3 (4.00-5.20); White Blood Count 6.2 Thou/mm3 (3.6-11.0)
[2025-02-10 06:04] LABS: Hemoglobin 8.3 g/dL (12.0-16.0)
[2025-02-10 06:49] LABS: Alanine Aminotransferase 24 U/L (10-49); Albumin, Serum 3.1 gm/dL (3.4-4.8); Albumin/Globulin Ratio 1.5 (1.2-2.2); Alkaline Phosphatase 70 U/L (46-116); Anion Gap 6 (7-16); Aspartate Amino Transferase 16 U/L (0-34); BUN/Creatinine Ratio 31 Ratio (12-20); Bilirubin,Total 0.2 mg/dL (0.3-1.2); Blood Urea Nitrogen 31 mg/dL (9-23); Calcium 8.5 mg/dL (8.3-10.6); Calcium (Corrected) 9.2 mg/dL (8.5-10.1); Carbon Dioxide 26.2 mMol/L (20.0-31.0); Chloride 105 mMol/L (98-107); Creatinine (Component) 1.0 mg/dL (0.6-1.3); Estimated Creatinine Clearance 42.9 mL/min (>60); Globulin 2.1 gm/dL (2.3-3.5); Glucose 226 mg/dL (74-106); Osmolality,Calculated 287 (275-295); Potassium 4.8 mMol/L (3.4-5.1); Sodium 137 mMol/L (136-145); Total Protein 5.2 gm/dL (5.7-8.2); eGFR 60 See Note
[2025-02-10] MEDS: SUCRALFATE SUSP 1 GM/10 ML UDC PO ×4 (07:19→20:38)
[2025-02-10] MEDS: HEPARIN SOD INJ 5000 UNIT/ML VIAL SC ×2 (09:40→20:38)
[2025-02-10] MEDS: INSULIN DEGLUDEC 5 UNIT/0.05 ML (PER 5 UNITS) 44 UNIT SC (09:41)
[2025-02-10] MEDS: POLYETHYLENE GLYCOL 17 GM PACKET 34 GM PO (09:41)
[2025-02-10] MEDS: FOLIC ACID 1 MG TABLET PO (09:43)
[2025-02-10] MEDS: CHOLECALCIFEROL (Vitamin D3) 1,000 IU TABLET 6000 IU PO (09:43)
[2025-02-10] MEDS: THIAMINE 100 MG TABLET PO (09:43)
[2025-02-10] MEDS: VITAMIN B COMPLEX TABLET 1 TAB PO (09:44)
--- NOTE | 2025-02-10 11:18 | PC.SS ---
rounding note: Continue to wean off TPN
[2025-02-10] MEDS: SENNA/DOCUSATE SOD 1 TAB TABLET 2 TAB PO (12:08)
--- NOTE | 2025-02-10 13:41 | ESPR_ITS ---
<Statement entered by Yuan Benoit MD - 02/11/25 05:00> Patient was seen and examined at bedside. I agree on the assessment and plan on this note as documented by resident José Ritter DO PGY1. 74-year-old female with past medical history as below has had a complicated hospital prolonged course status post bowel resection and anastomosis secondary to small bowel ischemia, continues to require complete parenteral nutrition although p.o. intake has significantly improved, patient has not had a bowel movement, was started on senna docusate and scheduled MiraLAX, will be given milk of mag x 1. Will be given glycerin suppository along with warm water enema today. Patient working well with physical therapy, anticipate discharge once TPN is weaned off. Case discussed with attending Dr. Nura Banerjee, DO Yuan Benoit MD PGY-2 Documentation for date of: 02/10/25 Subjective Subjective Interval history: Patient was seen and examined at bedside. No acute events took place overnight. Patient reports no fevers, chills, abdominal or chest pain. Patient has not had bowel movement for 2 days, but able to pass gas according to nurse. Patient has a good appetite and eats well with a pur?ed diet provided, more than 50% consumed without nausea, vomiting or regurgitation. Physical therapy evaluated the patient today and took the patient short walk around the floor. Exam Vital Signs Temp Pulse Resp BP Pulse Ox O2 Del Method O2 Flow Rate 97.5 F 86 17 145/67 H 97 Room Air 4 02/10/25 12:00 02/10/25 12:00 02/10/25 12:00 02/10/25 12:00 02/10/25 12:00 02/10/25 12:00 02/01/25 14:35 FiO2 30 01/27/25 19:00 Narrative Exam General: Elderly, frail, awake and alert. Head: Normocephalic, atraumatic. Eyes: Pupils equally round and reactive to light. Anicteric. Blind in left eye. Heart: Regular rate and rhythm, no murmurs. No JVD. Peripheral pulses 2+ and symmetric in all extremities. Lungs: Clear to auscultation bilaterally. Non-labored respirations, symmetric chest rise, no use of accessory muscles. Abdomen: Abdominal binder present. Wound dressing is clear, dry, and intact. Abdominal distention, normotensive bowel sounds, percussion tympanic, no tenderness to palpation. Neurologic: No gross neurological deficit, and patient able to move all 4 extremities. Extremities: No clubbing, cyanosis, or edema. Capillary refill <2 seconds. Skin warm to touch, no mottling. B/L UE pitting edema +2, likely 2/2 IV infiltration Skin: No rashes, lesions, or ulcers. Psychiatric: Cooperative, appropriate mood and affect Objective Labs 02/11/25 05:31 02/11/25 05:31 Labs: Laboratory Results - last 24 hr 02/10/25 05:08 WBC 6.2 RBC 2.89 L Hgb 8.3 L Hct 25.9 L MCV 90 MCH 28.7 MCHC 32.0 RDW Std Deviation 53.3 H Plt Count 401 Neut % (Auto) 54 Lymph % (Auto) 27 [place] % (Auto) 13 H Eos % (Auto) 2 Baso % (Auto) 1 Neut # (Auto) 3.3 Lymph # (Auto) 1.7 [place] # (Auto) 0.8 Eos # (Auto) 0.1 Baso # (Auto) 0.1 Immature Gran # (Auto) 0.21 H Absolute Nucleated RBC 0.00 Immature Gran % 3 H Nucleated RBC % 0 Sodium 137 Potassium 4.8 Chloride 105 Carbon Dioxide 26.2 Anion Gap 6 L BUN 31 H Creatinine 1.0 Estim Creat Clear Calc 42.9 L eGFR 60 BUN/Creatinine Ratio 31 H Glucose 226 H Calculated Osmolality 287 Calcium 8.5 Corrected Calcium 9.2 Total Bilirubin 0.2 L AST 16 ALT 24 Alkaline Phosphatase 70 D Total Protein 5.2 L Albumin 3.1 L Globulin 2.1 L Albumin/Globulin Ratio 1.5 ABG Interpretation ABG results: 01/23/25 01/24/25 01/24/25 17:13 05:00 18:55 ABG pH 7.09 L* ABG pCO2 60 H ABG pO2 46 L* ABG HCO3 18 L ABG O2 Saturation 77 L ABG Base Excess -11 L VBG pH 7.22 L 7.25 L VBG pCO2 37 39 VBG pO2 137 H 43 D VBG Base Excess -12 L -10 L 01/24/25 20:50 ABG pH 7.24 L D ABG pCO2 44 D ABG pO2 129 H D ABG HCO3 19 L ABG O2 Saturation 100 H ABG Base Excess -8 L VBG pH VBG pCO2 VBG pO2 VBG Base Excess Quality Measures Quality Measures VTE prophylaxis Advance care planning discussed with:: patient Assessment & Plan Assessment Current Active Medications: Generic Name Dose Route Start Last Admin Trade Name Sydq PRN Reason Stop Dose Admin Acetaminophen 650 mg 01/28/25 11:12 01/29/25 20:23 Acetaminophen 325 Mg Tablet PO 02/27/25 11:11 650 mg Q6H PRN Administration PAIN SCALE 1-3 (mild Benzocaine 1 lozenge 02/03/25 10:21 Benzocaine/Menthol 1 Lozenge PO 03/05/25 10:20 Q4HR PRN throat pain Dextrose 25 ml 01/25/25 08:42 Dextrose 50%-Water Inj 50 Ml Syringe IV 02/24/25 08:41 Q15MIN PRN BG 50-70 responsive npo pt Dextrose 50 ml 01/25/25 08:42 01/29/25 08:11 Dextrose 50%-Water Inj 50 Ml Syringe IV 02/24/25 08:41 50 ml Q15MIN PRN Administration BG <50 OR BG <70 & pt unresponsive Folic Acid 1 mg 01/28/25 16:30 02/10/25 09:43 Folic Acid 1 Mg Tablet PO 02/27/25 16:29 1 mg QDAY ELVIA Administration Glucagon 1 mg 01/25/25 08:42 Glucagon Inj 1 Mg Vial IM Q15MIN PRN BG <70, and no IV access Glycerin 1 each 02/04/25 14:14 02/04/25 16:24 Glycerin, Adult 1 Ea Supp [place] 03/06/25 14:13 1 each QDAY PRN Administration CONSTIPATION Heparin Sodium (Porcine) 5,000 unit 01/26/25 21:00 02/10/25 09:40 Heparin Sod Inj 5000 Unit/Ml Vial SC 02/15/25 14:14 5,000 unit Q12HR ELVIA Administration Protocol Fat Emulsion Intravenous 500 mls @ 32 mls/hr 01/29/25 18:00 02/07/25 18:00 Intralipid 20% Iv IV 02/28/25 17:59 32 mls/hr [id number]@1800 EL[facility]IA Administration Magnesium Sulfate 2 gm/ 2,021 mls @ 55 mls/hr 02/09/25 18:00 02/09/25 17:54 Potassium Phosphate 21 mmol/ IV 02/10/25 17:59 55 mls/hr Multivitamins/Minerals 10 ml/ QDAY@1800 [facility] Administration Amino Acids Insulin Degludec 44 unit 02/09/25 09:00 02/10/25 09:41 Insulin Degludec 5 Unit/0.05 Ml (Per 5 Units) SC 03/11/25 08:59 44 unit QDAY [facility] Administration Insulin Human Regular 12 unit 02/08/25 18:00 02/10/25 12:09 Insulin Hum Regular 1 Unit/0.01 Ml (Per Unit) SC 03/10/25 17:59 12 unit Q6HR ELVIA Administration Insulin Human Regular 0 unit 02/09/25 17:48 02/10/25 12:09 Insulin Hum Regular 1 Unit/0.01 Ml (Per Unit) SC 03/05/25 14:14 5 unit Q6HR ELVIA Administration Protocol Labetalol HCl 10 mg 01/26/25 11:53 Labetalol Inj 5 Mg/Ml Vial 20 Ml IVP 02/25/25 11:52 Q3HR PRN Systolic >180 and HR >75 Lisinopril 10 mg 02/10/25 09:00 02/10/25 09:43 Lisinopril 20 Mg Tablet PO 03/12/25 08:59 10 mg QDAY ELVIA Administration Metoclopramide HCl 5 mg 02/09/25 15:00 02/10/25 05:47 Metoclopramide Inj 5 Mg/Ml Vial 2 Ml IVP 03/11/25 14:59 5 mg TID ELVIA Administration Protocol Multivitamins/Minerals 15 ml 01/28/25 11:15 02/03/25 08:44 Multivitamin 15 Ml Udc PO 02/27/25 11:14 15 ml On Hold: 02/03/25 16:54 QDAY [facility] Administration Comment: PARENTERAL NUTRTION ACTIVE Ondansetron HCl 4 mg 01/29/25 16:31 02/06/25 17:34 Ondansetron Odt 4 Mg Tabrap PO 02/27/25 11:11 4 mg Q6HR PRN Administration NAUSEA OR VOMITING Protocol Pantoprazole Sodium 40 mg 01/25/25 09:00 02/10/25 09:42 Pantoprazole Inj 40 Mg Vial IVP 02/24/25 08:59 40 mg BID ELVIA Administration Polyethylene Glycol 34 gm 11/10/25 09:00 02/10/25 09:41 Polyethylene Glycol 17 Gm Packet PO 03/12/25 08:59 34 gm QDAY ELVIA Administration Sennosides 2 tab 02/10/25 10:45 02/10/25 12:08 Senna/Docusate Sod 1 Tab Tablet PO 03/12/25 10:44 2 tab QDAY ELVIA Administration Protocol Sucralfate 1 gm 02/04/25 11:30 02/10/25 12:08 Sucralfate Susp 1 Gm/10 Ml Udc PO 03/06/25 11:29 1 gm ACHS ELVIA Administration Thiamine HCl 100 mg 01/28/25 16:30 02/10/25 09:43 Thiamine 100 Mg Tablet PO 02/27/25 16:29 100 mg QDAY ELVIA Administration Vitamin B Complex/Vit C/Folic Acid 1 tab 01/28/25 16:30 02/10/25 09:44 Vitamin B Complex Tablet PO 02/27/25 16:29 1 tab QDAY ELVIA Administration Vitamin D 6,000 iu 01/28/25 16:30 02/10/25 09:43 Cholecalciferol (Vitamin D3) 1,000 Iu Tablet PO 02/27/25 16:29 6,000 iu QDAY ELVIA Administration Plan 74-year-old female with medical history significant for insulin-dependent type 2 diabetes, hypertension, hyperlipidemia, and coronary artery disease presenting with hyperosmolar hyperglycemic state (glucose ~1500, Na 170, osmolality 369) complicated by small bowel ischemia requiring emergent exploratory laparotomy for small bowel resection and anastomosis. Patient downgraded from ICU to medical floor on 01/26 for mgx for ongoing issues. #Dysphagia #Failure to thrive #Postop requiring total parenteral nutrition Likely esophageal dysphagia versus oropharyngeal as the patient has symptoms of regurgitation along with nausea and vomiting and no problem initiating swallowing. Patient having dysphagia to both solid and liquids, regurgitates intake even after EGD dilation of an esophageal stricture (02/03). EGD ([id number]) One benign-appearing, circumferential scarring or stenosis was found in the proximal esophagus. Dilation was performed. Many cratered esophageal ulcers oozing blood were found in the middle and lower thirds of the soft. Two biopsies were obtained from the lower third of the esophagus. Diffuse moderate inflammation was found in the entire examined stomach. 2 biopsies were obtained. The second portion of the duodenum was normal. According to Dr Grijalva, Large hiatal hernia 0.8 cm could be causing additional symptoms of dysphagia may need surgical intervention in the future. Plan: - Patient receives TPN through central line. - Pur?ed diet ? IV Protonix p.o. 40 mg twice daily ? Reglan IV 5 mg 3 times daily - Benzocaine/menthol lozenge PO Q4h PRN throat pain - GI, Dr Grijalva, consulted, appreciate recs ? Await pathology results ? Patient has an 8 cm hiatal hernia that may need surgical evaluation in the future #Constipation, improving Patient had not had bowel movement since 01/29 for 8days. KUB ordered, showed extensive burden in colon. Patient had multiple large loose stools after ingestion of GoLytely beginning at an infusion rate of 200 mL/h, and later decreasing to 50mL/h when she started vomiting on. Plan: - PT and nurse to move the patient to sitting up on the chair 3 times daily and to walks about the hospital floor, to help with BM. - Increase MiraLAX to 34 g daily, milk of mag as needed - Glycerin suppository, consider warm water too #Small Bowel Ischemia S/P small bowel resection and anastomosis The patient is status post exploratory laparotomy with small bowel resection and anastomosis. Post-operative course has been stable thus far. A large portion of ischemic jejunum and ileum was resected 280cm. The remaining jejunum and ileum were successfully anastomosed. CT abdomen (01/28) showed no bowel obstruction, and no evidence of abdominal or pelvic abscess Plan: - Zofran 4 mg IV every 6 hours as needed for nausea. - Peripheral nutrition, supervisor composing room following, - The patient has multiple risk factors for peripheral artery disease, including coronary artery disease and diabetes. Once clinically stable and post-surgery recovery progresses, an outpatient follow-up with vascular surgery will be necessary for further evaluation, including a CTA to assess for peripheral artery disease. #Insulin-dependent type 2 diabetes #?Gastroparesis Hemoglobin A1c: 13.7. HHS resolved, no longer on insulin drip. Patient on PPN. goal of blood glc 140-180 while hospitalized. Plan: - insulin regular sliding scale step 2 on top of scheduled 14u Q6h - Insulin degludec 25u bid ? Reglan IV 5 mg 3 times daily - Will require need insulin regimen upon D/C #History of coronary artery disease - Currently stable, no intervention required at this time. - Will continue home meds when stable. #Primary hypertension - Resumed home lisinopril 10 mg daily #Normocytic Anemia BUN 37, and CR 0.9, in the light of esophageal ulcers found on the EGD and recent small bowel resection, there is high probability for GI source of bleed. Did require 1 unit of PRBC Transfused 1 unit of pRBCs on 01/15. Plan: ? Posttransfusion H&H has been stable continue to monitor - Monitor CBC - Transfuse if Hgb <7 #Hypercalcemia, resolved #Hyperosmolar hyperglycemic state (resolved) #Shock, likely distributive due to small bowel ischemia (resolved) #Sinus tachycardia (resolved) #Anion gap metabolic acidosis (resolved) #Lactic acidosis (resolved) #Hyperosmolar hypernatremia, resolved #Hyperchloremia, resolved #Acute kidney injury on chronic kidney disease, resolved #Acute blood loss, resolved Health Maintenance: Disposition: Med Tele, We will continue TPN and attempt to advance diet as tolerated. Awaiting BM on bowel stimulants. If no improvement we will have to revisit long-term nutritional goals with patient and family. DVT prophylaxis: Heparin 5000 subQ. GI prophylaxis: Pantoprazole 40mg IV BID. Diet: Pur?ed CODE STATUS: FULL CODE This case was discussed with my attending physician, Dr. Banerjee, and senior resident, Dr. Benoit. José Ritter DO PGY I Disclaimer: This note was dictated by speech recognition. Minor errors in nnps may be present due to voice recognition software. Attending Provider Attestation/Addendum I have discussed and was present for the essential components of the history, physical examination, diagnosis, and treatment plan with the resident. I agree with the patient's care as documented by the resident and amended herein by me. Eladio Banerjee DO. Although this document has been carefully reviewed, there may still be some phonetic and other typographical errors. These errors are purely grammatical due to imperfections in the software program and should not be construed in any way to compromise the substance of the patient's medical care during this visit. Patient seen and evaluated this AM. Vital signs stable, patient afebrile overnight, still no bowel movement today or yesterday. Patient is however out of bed ambulating with walker which is a positive sign. Labs largely unremarkable. Today we will continue to taper off TPN as she is tolerating oral diet, will continue to get her up to chair and ambulate is much as possible, will continue MiraLAX and increase Reglan to 5 mg p.o. 3 times daily. Gastroenterology on board, general surgery on board, appreciate all specialist recommendations. Once the patient begins having bowel movements, can be discharged. PT recommending SNF placement however we will discuss this with the family and the patient and go with their wishes.
--- NOTE | 2025-02-10 14:05 | PD.IMPROG ---
Documentation for date of: 02/10/25 Subjective Subjective Interval history: Patient evaluated Hemoglobin hematocrit 8.3 and 25.9 Exam Vital Signs Temp Pulse Resp BP Pulse Ox O2 Del Method O2 Flow Rate 97.5 F 86 17 145/67 H 97 Room Air 4 02/10/25 12:00 02/10/25 12:00 02/10/25 12:00 02/10/25 12:00 02/10/25 12:00 02/10/25 12:00 02/01/25 14:35 FiO2 30 01/27/25 19:00 Objective Labs 02/10/25 05:08 02/10/25 05:08 Labs: Laboratory Results - last 24 hr 02/10/25 05:08 WBC 6.2 RBC 2.89 L Hgb 8.3 L Hct 25.9 L MCV 90 MCH 28.7 MCHC 32.0 RDW Std Deviation 53.3 H Plt Count 401 Neut % (Auto) 54 Lymph % (Auto) 27 [place] % (Auto) 13 H Eos % (Auto) 2 Baso % (Auto) 1 Neut # (Auto) 3.3 Lymph # (Auto) 1.7 [place] # (Auto) 0.8 Eos # (Auto) 0.1 Baso # (Auto) 0.1 Immature Gran # (Auto) 0.21 H Absolute Nucleated RBC 0.00 Immature Gran % 3 H Nucleated RBC % 0 Sodium 137 Potassium 4.8 Chloride 105 Carbon Dioxide 26.2 Anion Gap 6 L BUN 31 H Creatinine 1.0 Estim Creat Clear Calc 42.9 L eGFR 60 BUN/Creatinine Ratio 31 H Glucose 226 H Calculated Osmolality 287 Calcium 8.5 Corrected Calcium 9.2 Total Bilirubin 0.2 L AST 16 ALT 24 Alkaline Phosphatase 70 D Total Protein 5.2 L Albumin 3.1 L Globulin 2.1 L Albumin/Globulin Ratio 1.5 Impressions Impression: Esophagitis gastritis Large hiatal hernia Continue current management ABG Interpretation ABG results: 01/23/25 01/24/25 01/24/25 17:13 05:00 18:55 ABG pH 7.09 L* ABG pCO2 60 H ABG pO2 46 L* ABG HCO3 18 L ABG O2 Saturation 77 L ABG Base Excess -11 L VBG pH 7.22 L 7.25 L VBG pCO2 37 39 VBG pO2 137 H 43 D VBG Base Excess -12 L -10 L 01/24/25 20:50 ABG pH 7.24 L D ABG pCO2 44 D ABG pO2 129 H D ABG HCO3 19 L ABG O2 Saturation 100 H ABG Base Excess -8 L VBG pH VBG pCO2 VBG pO2 VBG Base Excess Assessment & Plan Time Spent With Patient Time: Total time spent is greater than 50% in coordination of care (as documented) at patient's floor/unit and/or counseling patient:
[2025-02-10] MEDS: INSULIN HUM REGULAR 1 UNIT/0.01 ML (PER UNIT) 14 UNIT SC ×2 (17:33→23:45)
[2025-02-10] MEDS: FAT EMULSIONS 20% IV 500 ML 32 ML IV (17:52)
[2025-02-11] VITALS (7 sets, daily range): BP systolic 125–159; BP diastolic 61–72; PULSE 87–110; RESP 15–20; TEMP 36.1–36.5; O2SAT 98–99; BMI 23.0
[2025-02-11] MEDS: INSULIN HUM REGULAR 1 UNIT/0.01 ML (PER UNIT) SC ×3 (05:17→17:34)
[2025-02-11] MEDS: INSULIN HUM REGULAR 1 UNIT/0.01 ML (PER UNIT) 14 UNIT SC ×3 (05:17→17:32)
[2025-02-11] MEDS: METOCLOPRAMIDE INJ 5 MG/ML VIAL 2 ML IVP ×3 (05:18→20:51)
[2025-02-11 06:11] LABS: Basophils # (Auto) 0.1 Thou/mm3 (0.0-0.2); Basophils % (Auto) 1 % (0-2.5); Eosinophils # (Auto) 0.2 Thou/mm3 (0.0-0.5); Eosinophils % (Auto) 3 % (0-10); Hematocrit 28.7 % (36.0-46.0); Hemoglobin 9.6 g/dL (12.0-16.0); Immature Granulocytes Auto 0.38 Thou/mm3 (0.00-0.00); Lymphocytes # (Auto) 1.9 Thou/mm3 (1.0-4.8); Lymphocytes % (Auto) 28 % (10-50); Mean Corpuscular HGB Conc 33.4 g/dl (31.0-37.0); Mean Corpuscular Hemoglobin 29.7 pg (25.0-35.0); Mean Corpuscular Volume 89 fL (80-100); Monocytes # (Auto) 0.9 Thou/mm3 (0.0-0.8); Monocytes % (Auto) 13 % (0-12); Neutrophils # (Auto) 3.4 Thou/mm3 (1.8-7.7); Neutrophils % (Auto) 50 % (37-80); Nucleated Red Blood Cell # 0.00 Thou/mm3 (0.00-0.00); Nucleated Red Blood Cell % 0 /100 WBC (0); Platelet Count 388 Thou/mm3 (140-440); RDW Standard Deviation 52.0 fL (36.4-46.3); Red Blood Count 3.23 Miln/mm3 (4.00-5.20); White Blood Count 6.9 Thou/mm3 (3.6-11.0)
[2025-02-11 06:26] LABS: Alanine Aminotransferase 22 U/L (10-49); Albumin, Serum 3.3 gm/dL (3.4-4.8); Albumin/Globulin Ratio 1.5 (1.2-2.2); Alkaline Phosphatase 68 U/L (46-116); Anion Gap 8 (7-16); Aspartate Amino Transferase 18 U/L (0-34); BUN/Creatinine Ratio 25 Ratio (12-20); Bilirubin,Total < 0.2 mg/dL (0.3-1.2); Blood Urea Nitrogen 25 mg/dL (9-23); Calcium 9.1 mg/dL (8.3-10.6); Calcium (Corrected) 9.7 mg/dL (8.5-10.1); Carbon Dioxide 24.4 mMol/L (20.0-31.0); Chloride 106 mMol/L (98-107); Creatinine (Component) 1.0 mg/dL (0.6-1.3); Estimated Creatinine Clearance 38.4 mL/min (>60); Globulin 2.2 gm/dL (2.3-3.5); Glucose 234 mg/dL (74-106); Magnesium 1.6 mg/dL (1.6-2.6); Osmolality,Calculated 288 (275-295); Phosphorous 2.8 mg/dL (2.4-5.1); Potassium 4.3 mMol/L (3.4-5.1); Sodium 138 mMol/L (136-145); Total Protein 5.5 gm/dL (5.7-8.2); eGFR 60 See Note
[2025-02-11] MEDS: CHOLECALCIFEROL (Vitamin D3) 1,000 IU TABLET 6000 IU PO (08:22)
[2025-02-11] MEDS: SENNA/DOCUSATE SOD 1 TAB TABLET 2 TAB PO (08:23)
[2025-02-11] MEDS: FOLIC ACID 1 MG TABLET PO (08:23)
[2025-02-11] MEDS: SUCRALFATE SUSP 1 GM/10 ML UDC PO ×4 (08:23→20:50)
[2025-02-11] MEDS: POLYETHYLENE GLYCOL 17 GM PACKET 34 GM PO (08:25)
[2025-02-11] MEDS: VITAMIN B COMPLEX TABLET 1 TAB PO (08:25)
[2025-02-11] MEDS: THIAMINE 100 MG TABLET PO (08:25)
[2025-02-11] MEDS: INSULIN DEGLUDEC 5 UNIT/0.05 ML (PER 5 UNITS) 25 UNIT SC ×2 (08:26→20:50)
[2025-02-11] MEDS: HEPARIN SOD INJ 5000 UNIT/ML VIAL SC ×2 (08:26→20:50)
--- NOTE | 2025-02-11 10:32 | PD.RESPRO ---
Documentation for date of: 02/11/25 Exam Vital Signs Temp Pulse Resp BP Pulse Ox O2 Del Method O2 Flow Rate 97.2 F 100 15 125/64 98 Room Air 4 02/11/25 08:00 02/11/25 08:24 02/11/25 08:00 02/11/25 08:24 02/11/25 08:00 02/11/25 08:00 02/01/25 14:35 FiO2 30 01/27/25 19:00 Objective Labs 02/12/25 04:42 02/12/25 04:42 Labs: Laboratory Results - last 24 hr 02/11/25 05:31 WBC 6.9 RBC 3.23 L Hgb 9.6 L Hct 28.7 L MCV 89 MCH 29.7 MCHC 33.4 RDW Std Deviation 52.0 H Plt Count 388 Neut % (Auto) 50 Lymph % (Auto) 28 [place] % (Auto) 13 H Eos % (Auto) 3 Baso % (Auto) 1 Neut # (Auto) 3.4 Lymph # (Auto) 1.9 [place] # (Auto) 0.9 H Eos # (Auto) 0.2 Baso # (Auto) 0.1 Immature Gran # (Auto) 0.38 H Absolute Nucleated RBC 0.00 Immature Gran % 6 H Nucleated RBC % 0 Sodium 138 Potassium 4.3 D Chloride 106 Carbon Dioxide 24.4 Anion Gap 8 BUN 25 H Creatinine 1.0 Estim Creat Clear Calc 38.4 L eGFR 60 BUN/Creatinine Ratio 25 H Glucose 234 H Calculated Osmolality 288 Calcium 9.1 Corrected Calcium 9.7 Phosphorus 2.8 Magnesium 1.6 Total Bilirubin < 0.2 L AST 18 ALT 22 Alkaline Phosphatase 68 Total Protein 5.5 L Albumin 3.3 L Globulin 2.2 L Albumin/Globulin Ratio 1.5 ABG Interpretation ABG results: 01/23/25 01/24/25 01/24/25 17:13 05:00 18:55 ABG pH 7.09 L* ABG pCO2 60 H ABG pO2 46 L* ABG HCO3 18 L ABG O2 Saturation 77 L ABG Base Excess -11 L VBG pH 7.22 L 7.25 L VBG pCO2 37 39 VBG pO2 137 H 43 D VBG Base Excess -12 L -10 L 01/24/25 20:50 ABG pH 7.24 L D ABG pCO2 44 D ABG pO2 129 H D ABG HCO3 19 L ABG O2 Saturation 100 H ABG Base Excess -8 L VBG pH VBG pCO2 VBG pO2 VBG Base Excess Quality Measures Quality Measures VTE prophylaxis Assessment & Plan Assessment Current Active Medications: Generic Name Dose Route Start Last Admin Trade Name Sydq PRN Reason Stop Dose Admin Acetaminophen 650 mg 01/28/25 11:12 01/29/25 20:23 Acetaminophen 325 Mg Tablet PO 02/27/25 11:11 650 mg Q6H PRN Administration PAIN SCALE 1-3 (mild Benzocaine 1 lozenge 02/03/25 10:21 Benzocaine/Menthol 1 Lozenge PO 03/05/25 10:20 Q4HR PRN throat pain Dextrose 25 ml 01/25/25 08:42 Dextrose 50%-Water Inj 50 Ml Syringe IV 02/24/25 08:41 Q15MIN PRN BG 50-70 responsive npo pt Dextrose 50 ml 01/25/25 08:42 01/29/25 08:11 Dextrose 50%-Water Inj 50 Ml Syringe IV 02/24/25 08:41 50 ml Q15MIN PRN Administration BG <50 OR BG <70 & pt unresponsive Folic Acid 1 mg 01/28/25 16:30 02/11/25 08:23 Folic Acid 1 Mg Tablet PO 02/27/25 16:29 1 mg QDAY ELVIA Administration Glucagon 1 mg 01/25/25 08:42 Glucagon Inj 1 Mg Vial IM Q15MIN PRN BG <70, and no IV access Glycerin 1 each 02/10/25 17:33 Glycerin, Adult 1 Ea Supp [place] 03/12/25 17:32 QDAY PRN CONSTIPATION Heparin Sodium (Porcine) 5,000 unit 01/26/25 21:00 02/11/25 08:26 Heparin Sod Inj 5000 Unit/Ml Vial SC 02/15/25 14:14 5,000 unit Q12HR ELVIA Administration Protocol Fat Emulsion Intravenous 500 mls @ 32 mls/hr 01/29/25 18:00 02/10/25 17:52 Intralipid 20% Iv IV 02/28/25 17:59 32 mls/hr [id number]@1800 ELVIA Administration Magnesium Sulfate 2 gm/ Sodium 2,022 mls @ 55 mls/hr 02/10/25 18:00 02/10/25 17:53 Phosphate 24 mmol/ IV 02/11/25 17:59 55 mls/hr Multivitamins/Minerals 10 ml/ QDAY@1800 [facility] Administration Amino Acids Magnesium Sulfate 2 gm/ 2,014 mls @ 55 mls/hr 02/11/25 18:00 Multivitamins/Minerals 10 ml/ IV 02/12/25 17:59 Amino Acids QDAY@1800 [facility] Insulin Degludec 25 unit 02/11/25 09:00 02/11/25 08:26 Insulin Degludec 5 Unit/0.05 Ml (Per 5 Units) SC 03/13/25 08:59 25 unit BID ELVIA Administration Insulin Human Regular 0 unit 02/09/25 17:48 02/11/25 05:17 Insulin Hum Regular 1 Unit/0.01 Ml (Per Unit) SC 03/05/25 14:14 3 unit Q6HR [facility] Administration Protocol Insulin Human Regular 14 unit 02/10/25 18:00 02/11/25 05:17 Insulin Hum Regular 1 Unit/0.01 Ml (Per Unit) [place] 03/12/25 17:59 14 unit Q6HR ELVIA Administration Labetalol HCl 10 mg 01/26/25 11:53 Labetalol Inj 5 Mg/Ml Vial 20 Ml IVP 02/25/25 11:52 Q3HR PRN Systolic >180 and HR >75 Lisinopril 10 mg 02/10/25 09:00 02/11/25 08:24 Lisinopril 20 Mg Tablet PO 03/12/25 08:59 10 mg QDAY ELVIA Administration Metoclopramide HCl 5 mg 02/09/25 15:00 02/11/25 05:18 Metoclopramide Inj 5 Mg/Ml Vial 2 Ml IVP 03/11/25 14:59 5 mg TID [facility] Administration Protocol Multivitamins/Minerals 15 ml 01/28/25 11:15 02/03/25 08:44 Multivitamin 15 Ml Udc PO 02/27/25 11:14 15 ml On Hold: 02/03/25 16:54 QDAY [facility] Administration Comment: PARENTERAL NUTRTION ACTIVE Ondansetron HCl 4 mg 01/29/25 16:31 02/06/25 17:34 Ondansetron Odt 4 Mg Tabrap PO 02/27/25 11:11 4 mg Q6HR PRN Administration NAUSEA OR VOMITING Protocol Pantoprazole Sodium 40 mg 01/25/25 09:00 02/11/25 08:23 Pantoprazole Inj 40 Mg Vial IVP 02/24/25 08:59 40 mg BID ELVIA Administration Polyethylene Glycol 34 gm 02/10/25 09:00 02/11/25 08:25 Polyethylene Glycol 17 Gm Packet PO 03/12/25 08:59 34 gm QDAY ELVIA Administration Sennosides 2 tab 02/10/25 10:45 02/11/25 08:23 Senna/Docusate Sod 1 Tab Tablet PO 03/12/25 10:44 2 tab QDAY ELVIA Administration Protocol Sucralfate 1 gm 02/04/25 11:30 02/11/25 08:23 Sucralfate Susp 1 Gm/10 Ml Udc PO 03/06/25 11:29 1 gm ACHS ELVIA Administration Thiamine HCl 100 mg 01/28/25 16:30 02/11/25 08:25 Thiamine 100 Mg Tablet PO 02/27/25 16:29 100 mg QDAY ELVIA Administration Vitamin B Complex/Vit C/Folic Acid 1 tab 01/28/25 16:30 02/11/25 08:25 Vitamin B Complex Tablet PO 02/27/25 16:29 1 tab QDAY [facility] Administration Vitamin D 6,000 iu 01/28/25 16:30 02/11/25 08:22 Cholecalciferol (Vitamin D3) 1,000 Iu Tablet PO 02/27/25 16:29 6,000 iu QDAY EL[facility]IA Administration
--- NOTE | 2025-02-11 11:35 | PD.SURPROG ---
Documentation for date of: 02/11/25 Subjective Subjective Brief History: 74F with HTN, HLD, DMII (A1c 13), CAD, admitted 01/23 with 3-day history of weakness, poor oral intake and nausea/vomiting, with findings consistent with HHS. Pt was admitted to ICU and then overnight developed worsening abdominal distention, AXR showing stool burden and CT performed today concerning for ischemic small bowel with air droplets in the mesentery and pneumoperitoneum. Pt was started on pressor support, has an increasing lactate Narrative: Pt sitting up in chair, reports feeling well today with improved nausea, tolerating diet and last BM was 02/08. Remaining afebrile with normal WBC and hgb >9 Exam Vital Signs Temp Pulse Resp BP Pulse Ox O2 Del Method O2 Flow Rate 97.2 F 100 15 125/64 98 Room Air 4 02/11/25 08:00 02/11/25 08:24 02/11/25 08:00 02/11/25 08:24 02/11/25 08:00 02/11/25 08:00 02/01/25 14:35 FiO2 30 01/27/25 19:00 Constitutional Constitutional: no acute distress Routine Respiratory Exam Respiratory: Present no resp distress Routine Abdominal Exam Abdominal: Present soft and wound (midline incision with no erythema, no fluctuance or tenderness; cornelio removed today); Absent tenderness or distended Assessment & Plan Plan 74F s/p small bowel resection and anastomosis on 01/24 with ongoing nausea despite dilation of esophageal stricture 02/01. Clinically she appears overall fairly well with no signs of active infection, is receiving IV nutrition but also tolerating some oral intake. Cornelio removed today Appreciate IM, RD care Please contact me anytime with concerns or questions PROCEDURES: Procedures Exploratory laparotomy, small bowel resection and anastomosis, washout
[2025-02-11] MEDS: MULTIVITAMIN IV (17:35)
[2025-02-11] MEDS: MAGNESIUM SULF IV (17:35)
[2025-02-11] MEDS: [UNRECOGNIZED DRUG - OTHER] IV (17:35)
[2025-02-11] MEDS: AMINO ACID IV (17:35)
--- NOTE | 2025-02-11 18:20 | PD.IMPROG ---
Documentation for date of: 02/11/25 Subjective Subjective Interval history: Patient evaluated Has nausea but tolerating the food Status post endoscopic dilatation of proximal esophagus stricture and also has a large hiatal hernia Exam Vital Signs Temp Pulse Resp BP Pulse Ox O2 Del Method O2 Flow Rate 97.3 F 96 16 156/72 H 99 Room Air 4 02/11/25 16:00 02/11/25 16:00 02/11/25 16:00 02/11/25 16:00 02/11/25 16:00 02/11/25 16:00 02/01/25 14:35 FiO2 30 01/27/25 19:00 Objective Labs 02/11/25 05:31 02/11/25 05:31 Labs: Laboratory Results - last 24 hr 02/11/25 05:31 WBC 6.9 RBC 3.23 L Hgb 9.6 L Hct 28.7 L MCV 89 MCH 29.7 MCHC 33.4 RDW Std Deviation 52.0 H Plt Count 388 Neut % (Auto) 50 Lymph % (Auto) 28 [place] % (Auto) 13 H Eos % (Auto) 3 Baso % (Auto) 1 Neut # (Auto) 3.4 Lymph # (Auto) 1.9 [place] # (Auto) 0.9 H Eos # (Auto) 0.2 Baso # (Auto) 0.1 Immature Gran # (Auto) 0.38 H Absolute Nucleated RBC 0.00 Immature Gran % 6 H Nucleated RBC % 0 Sodium 138 Potassium 4.3 D Chloride 106 Carbon Dioxide 24.4 Anion Gap 8 BUN 25 H Creatinine 1.0 Estim Creat Clear Calc 38.4 L eGFR 60 BUN/Creatinine Ratio 25 H Glucose 234 H Calculated Osmolality 288 Calcium 9.1 Corrected Calcium 9.7 Phosphorus 2.8 Magnesium 1.6 Total Bilirubin < 0.2 L AST 18 ALT 22 Alkaline Phosphatase 68 Total Protein 5.5 L Albumin 3.3 L Globulin 2.2 L Albumin/Globulin Ratio 1.5 Impressions Impression: Large hiatal hernia nausea Status post esophageal dilatation Continue current management ABG Interpretation ABG results: 01/23/25 01/24/25 01/24/25 17:13 05:00 18:55 ABG pH 7.09 L* ABG pCO2 60 H ABG pO2 46 L* ABG HCO3 18 L ABG O2 Saturation 77 L ABG Base Excess -11 L VBG pH 7.22 L 7.25 L VBG pCO2 37 39 VBG pO2 137 H 43 D VBG Base Excess -12 L -10 L 01/24/25 20:50 ABG pH 7.24 L D ABG pCO2 44 D ABG pO2 129 H D ABG HCO3 19 L ABG O2 Saturation 100 H ABG Base Excess -8 L VBG pH VBG pCO2 VBG pO2 VBG Base Excess Assessment & Plan Time Spent With Patient Time: Total time spent is greater than 50% in coordination of care (as documented) at patient's floor/unit and/or counseling patient:
--- NOTE | 2025-02-11 18:28 | ESPR_ITS ---
<Statement entered by Abdulkadir Medina MD - 02/12/25 14:57> Patient seen and examined at bedside. I discussed and supervised with the underwriting internship physician who took care of this patient. I personally saw and examined the patient. I agree with most of the assessment and plan. Plan of care discussed with attending Dr. Kenya Medina MD PGY-2 Documentation for date of: 02/11/25 Subjective Subjective Interval history: Patient was seen and examined at bedside. No acute events took place overnight. Patient reports no fevers, chills, abdominal or chest pain. Patient had small pasty bowel movement overnight reported to the morning nurse. During the day, patient developed a medium sized bowel movement in the early afternoon, and more was removed with administration of glycerin suppository and warm water. Patient has an appetite and eats the pur?ed diet provided, more than 50% consumed without nausea, vomiting or regurgitation. Physical therapy evaluated the patient today and took the patient short walk around the floor. According to dietitian recommendations, patient will have to wait on TPN taper until she can consume more than 65% of the diet offered to her. Exam Vital Signs Temp Pulse Resp BP Pulse Ox O2 Del Method O2 Flow Rate 97.3 F 96 16 156/72 H 99 Room Air 4 02/11/25 16:00 02/11/25 16:00 02/11/25 16:00 02/11/25 16:00 02/11/25 16:00 02/11/25 16:00 02/01/25 14:35 FiO2 30 01/27/25 19:00 Narrative Exam General: Elderly, frail, awake and alert. Head: Normocephalic, atraumatic. Eyes: Pupils equally round and reactive to light. Anicteric. Blind in left eye. Heart: Regular rate and rhythm, no murmurs. No JVD. Peripheral pulses 2+ and symmetric in all extremities. Lungs: Clear to auscultation bilaterally. Non-labored respirations, symmetric chest rise, no use of accessory muscles. Abdomen: Wound dressing is clear, dry, and intact. Abdominal distention, normotensive bowel sounds, percussion tympanic, no tenderness to palpation. Neurologic: No gross neurological deficit, and patient able to move all 4 extremities. Extremities: No clubbing, cyanosis, or edema. Capillary refill <2 seconds. Skin warm to touch, no mottling. B/L UE pitting edema +2, likely 2/2 IV infiltration Skin: No rashes, lesions, or ulcers. Psychiatric: Cooperative, appropriate mood and affect Objective Labs 02/12/25 04:42 02/12/25 04:42 Labs: Laboratory Results - last 24 hr 02/11/25 05:31 WBC 6.9 RBC 3.23 L Hgb 9.6 L Hct 28.7 L MCV 89 MCH 29.7 MCHC 33.4 RDW Std Deviation 52.0 H Plt Count 388 Neut % (Auto) 50 Lymph % (Auto) 28 [place] % (Auto) 13 H Eos % (Auto) 3 Baso % (Auto) 1 Neut # (Auto) 3.4 Lymph # (Auto) 1.9 [place] # (Auto) 0.9 H Eos # (Auto) 0.2 Baso # (Auto) 0.1 Immature Gran # (Auto) 0.38 H Absolute Nucleated RBC 0.00 Immature Gran % 6 H Nucleated RBC % 0 Sodium 138 Potassium 4.3 D Chloride 106 Carbon Dioxide 24.4 Anion Gap 8 BUN 25 H Creatinine 1.0 Estim Creat Clear Calc 38.4 L eGFR 60 BUN/Creatinine Ratio 25 H Glucose 234 H Calculated Osmolality 288 Calcium 9.1 Corrected Calcium 9.7 Phosphorus 2.8 Magnesium 1.6 Total Bilirubin < 0.2 L AST 18 ALT 22 Alkaline Phosphatase 68 Total Protein 5.5 L Albumin 3.3 L Globulin 2.2 L Albumin/Globulin Ratio 1.5 ABG Interpretation ABG results: 01/23/25 01/24/25 01/24/25 17:13 05:00 18:55 ABG pH 7.09 L* ABG pCO2 60 H ABG pO2 46 L* ABG HCO3 18 L ABG O2 Saturation 77 L ABG Base Excess -11 L VBG pH 7.22 L 7.25 L VBG pCO2 37 39 VBG pO2 137 H 43 D VBG Base Excess -12 L -10 L 01/24/25 20:50 ABG pH 7.24 L D ABG pCO2 44 D ABG pO2 129 H D ABG HCO3 19 L ABG O2 Saturation 100 H ABG Base Excess -8 L VBG pH VBG pCO2 VBG pO2 VBG Base Excess Quality Measures Quality Measures VTE prophylaxis Advance care planning discussed with:: patient Assessment & Plan Assessment Current Active Medications: Generic Name Dose Route Start Last Admin Trade Name Frerajeev PRN Reason Stop Dose Admin Acetaminophen 650 mg 01/28/25 11:12 01/29/25 20:23 Acetaminophen 325 Mg Tablet PO 02/27/25 11:11 650 mg Q6H PRN Administration PAIN SCALE 1-3 (mild Benzocaine 1 lozenge 02/03/25 10:21 Benzocaine/Menthol 1 Lozenge PO 03/05/25 10:20 Q4HR PRN throat pain Dextrose 25 ml 01/25/25 08:42 Dextrose 50%-Water Inj 50 Ml Syringe IV 02/24/25 08:41 Q15MIN PRN BG 50-70 responsive npo pt Dextrose 50 ml 01/25/25 08:42 01/29/25 08:11 Dextrose 50%-Water Inj 50 Ml Syringe IV 02/24/25 08:41 50 ml Q15MIN PRN Administration BG <50 OR BG <70 & pt unresponsive Folic Acid 1 mg 01/28/25 16:30 02/11/25 08:23 Folic Acid 1 Mg Tablet PO 02/27/25 16:29 1 mg QDAY ELVIA Administration Glucagon 1 mg 01/25/25 08:42 Glucagon Inj 1 Mg Vial IM Q15MIN PRN BG <70, and no IV access Glycerin 1 each 02/10/25 17:33 Glycerin, Adult 1 Ea Supp NM 03/12/25 17:32 QDAY PRN CONSTIPATION Heparin Sodium (Porcine) 5,000 unit 01/26/25 21:00 02/11/25 08:26 Heparin Sod Inj 5000 Unit/Ml Vial SC 02/15/25 14:14 5,000 unit Q12HR ELVIA Administration Protocol Fat Emulsion Intravenous 500 mls @ 32 mls/hr 01/29/25 18:00 02/10/25 17:52 Intralipid 20% Iv IV 02/28/25 17:59 32 mls/hr [id number] ELVIA Administration Magnesium Sulfate 2 gm/ 2,014 mls @ 30 mls/hr 02/11/25 18:00 02/11/25 17:35 Multivitamins/Minerals 10 ml/ IV 02/12/25 17:59 30 mls/hr Amino Acids [id number]@1800 ELVIA Administration Insulin Degludec 25 unit 02/11/25 09:00 02/11/25 08:26 Insulin Degludec 5 Unit/0.05 Ml (Per 5 Units) SC 03/13/25 08:59 25 unit BID ELVIA Administration Insulin Human Regular 0 unit 02/09/25 17:48 02/11/25 17:34 Insulin Hum Regular 1 Unit/0.01 Ml (Per Unit) SC 03/05/25 14:14 5 unit Q6HR ELVIA Administration Protocol Insulin Human Regular 14 unit 02/10/25 18:00 02/11/25 17:32 Insulin Hum Regular 1 Unit/0.01 Ml (Per Unit) SC 03/12/25 17:59 14 unit Q6HR ELVIA Administration Labetalol HCl 10 mg 01/26/25 11:53 Labetalol Inj 5 Mg/Ml Vial 20 Ml IVP 02/25/25 11:52 Q3HR PRN Systolic >180 and HR >75 Lisinopril 10 mg 02/10/25 09:00 02/11/25 08:24 Lisinopril 20 Mg Tablet PO 03/12/25 08:59 10 mg QDAY ELVIA Administration Metoclopramide HCl 5 mg 02/09/25 15:00 02/11/25 13:53 Metoclopramide Inj 5 Mg/Ml Vial 2 Ml IVP 03/11/25 14:59 5 mg TID ELVIA Administration Protocol Multivitamins/Minerals 15 ml 01/28/25 11:15 02/03/25 08:44 Multivitamin 15 Ml Udc PO 02/27/25 11:14 15 ml On Hold: 02/03/25 16:54 QDAY ELVIA Administration Comment: PARENTERAL NUTRTION ACTIVE Ondansetron HCl 4 mg 01/29/25 16:31 02/06/25 17:34 Ondansetron Odt 4 Mg Tabrap PO 02/27/25 11:11 4 mg Q6HR PRN Administration NAUSEA OR VOMITING Protocol Pantoprazole Sodium 40 mg 01/25/25 09:00 02/11/25 08:23 Pantoprazole Inj 40 Mg Vial IVP 02/24/25 08:59 40 mg BID ELVIA Administration Polyethylene Glycol 34 gm 02/10/25 09:00 02/11/25 08:25 Polyethylene Glycol 17 Gm Packet PO 03/12/25 08:59 34 gm QDAY ELVIA Administration Sennosides 2 tab 02/10/25 10:45 02/11/25 08:23 Senna/Docusate Sod 1 Tab Tablet PO 03/12/25 10:44 2 tab QDAY ELVIA Administration Protocol Sucralfate 1 gm 02/04/25 11:30 02/11/25 17:31 Sucralfate Susp 1 Gm/10 Ml Udc PO 03/06/25 11:29 1 gm ACHS ELVIA Administration Thiamine HCl 100 mg 01/28/25 16:30 02/11/25 08:25 Thiamine 100 Mg Tablet PO 02/27/25 16:29 100 mg QDAY ELVIA Administration Vitamin B Complex/Vit C/Folic Acid 1 tab 01/28/25 16:30 02/11/25 08:25 Vitamin B Complex Tablet PO 02/27/25 16:29 1 tab QDAY ELVIA Administration Vitamin D 6,000 iu 01/28/25 16:30 02/11/25 08:22 Cholecalciferol (Vitamin D3) 1,000 Iu Tablet PO 02/27/25 16:29 6,000 iu QDAY ELVIA Administration Plan 74-year-old female with medical history significant for insulin-dependent type 2 diabetes, hypertension, hyperlipidemia, and coronary artery disease presenting with hyperosmolar hyperglycemic state (glucose ~1500, Na 170, osmolality 369) complicated by small bowel ischemia requiring emergent exploratory laparotomy for small bowel resection and anastomosis. Patient downgraded from ICU to medical floor on 01/26 for mgx for ongoing issues. #Dysphagia #Failure to thrive #Postop requiring total parenteral nutrition Likely esophageal dysphagia versus oropharyngeal as the patient has symptoms of regurgitation along with nausea and vomiting and no problem initiating swallowing. Patient having dysphagia to both solid and liquids, regurgitates intake even after EGD dilation of an esophageal stricture (02/03). EGD ([id number]) One benign-appearing, circumferential scarring or stenosis was found in the proximal esophagus. Dilation was performed. Many cratered esophageal ulcers oozing blood were found in the middle and lower thirds of the soft. Two biopsies were obtained from the lower third of the esophagus. Diffuse moderate inflammation was found in the entire examined stomach. 2 biopsies were obtained. The second portion of the duodenum was normal. According to Dr Grijalva, Large hiatal hernia 0.8 cm could be causing additional symptoms of dysphagia may need surgical intervention in the future. Plan: - Will taper TPN down as soon as patient consumes at least 65% of the diet provided to her. through central line, - Pur?ed diet ? IV Protonix p.o. 40 mg twice daily ? Reglan IV 5 mg 3 times daily - Benzocaine/menthol lozenge PO Q4h PRN throat pain - GI, Dr Grijalva, consulted, appreciate recs ? Await pathology results ? Patient has an 8 cm hiatal hernia that may need surgical evaluation in the future #Constipation, improving Patient had not had bowel movement since 01/29 for 8days. KUB ordered, showed extensive burden in colon. Patient had multiple large loose stools after ingestion of GoLytely beginning at an infusion rate of 200 mL/h, and later decreasing to 50mL/h when she started vomiting on. Two days after series of BM from Golytely administration, patient developed a medium sized BM on her own, and more feces were removed through administration of warm water enema on 02/11. Plan: - PT and nurse to move the patient to sitting up on the chair 3 times daily and to walks about the hospital floor, to help with BM. - Increase MiraLAX to 34 g daily, milk of mag as needed - Glycerin suppository - warm water enema #Small Bowel Ischemia S/P small bowel resection and anastomosis The patient is status post exploratory laparotomy with small bowel resection and anastomosis. Post-operative course has been stable thus far. A large portion of ischemic jejunum and ileum was resected 280cm. The remaining jejunum and ileum were successfully anastomosed. CT abdomen (01/28) showed no bowel obstruction, and no evidence of abdominal or pelvic abscess Plan: - cleared by Dr Quinonez for discharge; surgical cornelio removed - Zofran 4 mg IV every 6 hours as needed for nausea. - Peripheral nutrition, nicker and breaker following, - The patient has multiple risk factors for peripheral artery disease, including coronary artery disease and diabetes. Once clinically stable and post-surgery recovery progresses, an outpatient follow-up with vascular surgery will be necessary for further evaluation, including a CTA to assess for peripheral artery disease. #Insulin-dependent type 2 diabetes #?Gastroparesis Hemoglobin A1c: 13.7. HHS resolved, no longer on insulin drip. Patient on PPN. goal of blood glc 140-180 while hospitalized. Plan: - insulin regular sliding scale step 2 on top of scheduled 14u Q6h - Insulin degludec 25u bid ? Reglan IV 5 mg 3 times daily - Will require need insulin regimen upon D/C #History of coronary artery disease - Currently stable, no intervention required at this time. - Will continue home meds when stable. #Primary hypertension - Resumed home lisinopril 10 mg daily #Normocytic Anemia BUN 37, and CR 0.9, in the light of esophageal ulcers found on the EGD and recent small bowel resection, there is high probability for GI source of bleed. Did require 1 unit of PRBC Transfused 1 unit of pRBCs on 01/15. Plan: ? Posttransfusion H&H has been stable continue to monitor - Monitor CBC - Transfuse if Hgb <7 #Hypercalcemia, resolved #Hyperosmolar hyperglycemic state (resolved) #Shock, likely distributive due to small bowel ischemia (resolved) #Sinus tachycardia (resolved) #Anion gap metabolic acidosis (resolved) #Lactic acidosis (resolved) #Hyperosmolar hypernatremia, resolved #Hyperchloremia, resolved #Acute kidney injury on chronic kidney disease, resolved #Acute blood loss, resolved Health Maintenance: Disposition: Med Tele, We will taper TPN down as soon as patient eats at least 65% of her meals. Awaiting BM on bowel stimulants. DVT prophylaxis: Heparin 5000 subQ. GI prophylaxis: Pantoprazole 40mg IV BID. Diet: Pur?ed CODE STATUS: FULL CODE This case was discussed with my attending physician, Dr. Banerjee, and senior resident, Dr. Medina. José Ritter, DO PGY I Disclaimer: This note was dictated by speech recognition. Minor errors in hospital cleaning specialist may be present due to voice recognition software. Attending Provider Attestation/Addendum I have seen and examined the patient. I was physically present for the [place] portions of the services provided including history, physical exam, diagnosis, treatment plans and orders. I agree with assessment and plan of care as documented by residents. Even though this this note was carefully revised there may still be minor errors in hospital cleaning specialist due to voice recognition software. Andreas Zambrano MD
[2025-02-12] VITALS (7 sets, daily range): BP systolic 126–155; BP diastolic 58–71; PULSE 83–106; RESP 13–20; TEMP 36.1–36.7; O2SAT 97–98; BMI 23.0
[2025-02-12] MEDS: INSULIN HUM REGULAR 1 UNIT/0.01 ML (PER UNIT) 14 UNIT SC ×4 (05:37→23:42)
[2025-02-12] MEDS: METOCLOPRAMIDE INJ 5 MG/ML VIAL 2 ML IVP ×3 (05:37→21:34)
[2025-02-12 05:45] LABS: Basophils # (Auto) 0.1 Thou/mm3 (0.0-0.2); Basophils % (Auto) 1 % (0-2.5); Eosinophils # (Auto) 0.2 Thou/mm3 (0.0-0.5); Eosinophils % (Auto) 2 % (0-10); Hematocrit 26.1 % (36.0-46.0); Immature Granulocytes Auto 0.23 Thou/mm3 (0.00-0.00); Lymphocytes # (Auto) 2.2 Thou/mm3 (1.0-4.8); Lymphocytes % (Auto) 29 % (10-50); Mean Corpuscular HGB Conc 32.6 g/dl (31.0-37.0); Mean Corpuscular Hemoglobin 29.2 pg (25.0-35.0); Mean Corpuscular Volume 90 fL (80-100); Monocytes # (Auto) 0.8 Thou/mm3 (0.0-0.8); Monocytes % (Auto) 11 % (0-12); Neutrophils # (Auto) 4.2 Thou/mm3 (1.8-7.7); Neutrophils % (Auto) 55 % (37-80); Nucleated Red Blood Cell # 0.00 Thou/mm3 (0.00-0.00); Nucleated Red Blood Cell % 0 /100 WBC (0); Platelet Count 339 Thou/mm3 (140-440); RDW Standard Deviation 54.1 fL (36.4-46.3); Red Blood Count 2.91 Miln/mm3 (4.00-5.20); White Blood Count 7.6 Thou/mm3 (3.6-11.0)
[2025-02-12 05:55] LABS: Alanine Aminotransferase 23 U/L (10-49); Albumin, Serum 3.1 gm/dL (3.4-4.8); Albumin/Globulin Ratio 1.4 (1.2-2.2); Alkaline Phosphatase 65 U/L (46-116); Anion Gap 6 (7-16); Aspartate Amino Transferase 19 U/L (0-34); BUN/Creatinine Ratio 27 Ratio (12-20); Bilirubin,Total 0.2 mg/dL (0.3-1.2); Blood Urea Nitrogen 27 mg/dL (9-23); Calcium 8.8 mg/dL (8.3-10.6); Calcium (Corrected) 9.5 mg/dL (8.5-10.1); Carbon Dioxide 25.8 mMol/L (20.0-31.0); Chloride 106 mMol/L (98-107); Creatinine (Component) 1.0 mg/dL (0.6-1.3); Estimated Creatinine Clearance 38.4 mL/min (>60); Globulin 2.2 gm/dL (2.3-3.5); Glucose 176 mg/dL (74-106); Magnesium 1.6 mg/dL (1.6-2.6); Osmolality,Calculated 284 (275-295); Phosphorous 3.5 mg/dL (2.4-5.1); Potassium 4.5 mMol/L (3.4-5.1); Sodium 138 mMol/L (136-145); Total Protein 5.3 gm/dL (5.7-8.2); eGFR 60 See Note
[2025-02-12 05:59] LABS: Hemoglobin 8.5 g/dL (12.0-16.0)
[2025-02-12] MEDS: SUCRALFATE SUSP 1 GM/10 ML UDC PO ×4 (07:28→21:34)
[2025-02-12] MEDS: INSULIN DEGLUDEC 5 UNIT/0.05 ML (PER 5 UNITS) 25 UNIT SC ×2 (10:09→21:45)
[2025-02-12] MEDS: POLYETHYLENE GLYCOL 17 GM PACKET 34 GM PO (10:10)
[2025-02-12] MEDS: HEPARIN SOD INJ 5000 UNIT/ML VIAL SC ×2 (10:10→21:34)
[2025-02-12] MEDS: SENNA/DOCUSATE SOD 1 TAB TABLET 2 TAB PO (10:13)
[2025-02-12] MEDS: THIAMINE 100 MG TABLET PO (10:14)
--- NOTE | 2025-02-12 10:18 | ESPR_ITS ---
<Statement entered by Yuan Benoit MD - 02/13/25 19:33> Patient was seen and examined at bedside. I agree on the assessment and plan on this note as documented by resident Dr josé Ritter DO PGY1. 74-year-old female with past medical history as below, has had a prolonged hospitalization course is status post bowel resection secondary to bowel ischemia, has been on TPN which will be weaned off today as patient has good p.o. intake. Started on lactulose scheduled to assist with constipation, patient will require jail facility placement social and political studies professor is informed. Patient has shown remarkable improvement, anticipate discharge once authorization is obtained and constipation has improved. Case discussed with attending Dr. Andreas Benoit MD PGY-2 Documentation for date of: 02/12/25 Subjective Subjective Interval history: Patient was seen and examined at bedside. No acute events took place overnight. Patient reports no fevers, chills, abdominal or chest pain. Patient has a good appetite and eats well a pur?ed diet provided, more than 50% consumed without nausea, vomiting or regurgitation. Physical therapy takes the patient on walks about hospital floor daily and the nurse takes the patient up to chair 3 times daily. Patient had not had a bowel movement since 02/10, only a light streak on brief and chunks removed after application of enema. However patient developed a large copious yellow-brown soft stool at 4 PM today. Dietitian tapers TPN down as patient has adequate appetite now. Exam Vital Signs Temp Pulse Resp BP Pulse Ox O2 Del Method O2 Flow Rate 97.8 F 95 20 132/63 H 98 Room Air 4 02/12/25 08:00 02/12/25 08:00 02/12/25 08:00 02/12/25 08:00 02/12/25 08:00 02/12/25 08:00 02/01/25 14:35 FiO2 30 01/27/25 19:00 Narrative Exam General: Elderly, frail, awake and alert. Head: Normocephalic, atraumatic. Eyes: Pupils equally round and reactive to light. Anicteric. Blind in left eye. Heart: Regular rate and rhythm, no murmurs. No JVD. Peripheral pulses 2+ and symmetric in all extremities. Lungs: Clear to auscultation bilaterally. Non-labored respirations, symmetric chest rise, no use of accessory muscles. Abdomen: Wound dressing is clear, dry, and intact. Abdominal distention, normotensive bowel sounds, percussion tympanic, no tenderness to palpation. Neurologic: No gross neurological deficit, and patient able to move all 4 extremities. Extremities: No clubbing, cyanosis, or edema. Capillary refill <2 seconds. Skin warm to touch, no mottling. B/L UE pitting edema +2, likely 2/2 IV infiltration Skin: No rashes, lesions, or ulcers. Psychiatric: Cooperative, appropriate mood and affect Objective Labs 02/13/25 05:35 02/13/25 05:35 Labs: Laboratory Results - last 24 hr 02/12/25 04:42 WBC 7.6 RBC 2.91 L Hgb 8.5 L Hct 26.1 L MCV 90 MCH 29.2 MCHC 32.6 RDW Std Deviation 54.1 H Plt Count 339 D Neut % (Auto) 55 Lymph % (Auto) 29 [place] % (Auto) 11 Eos % (Auto) 2 Baso % (Auto) 1 Neut # (Auto) 4.2 Lymph # (Auto) 2.2 [place] # (Auto) 0.8 Eos # (Auto) 0.2 Baso # (Auto) 0.1 Immature Gran # (Auto) 0.23 H Absolute Nucleated RBC 0.00 Immature Gran % 3 H Nucleated RBC % 0 Sodium 138 Potassium 4.5 Chloride 106 Carbon Dioxide 25.8 Anion Gap 6 L BUN 27 H Creatinine 1.0 Estim Creat Clear Calc 38.4 L eGFR 60 BUN/Creatinine Ratio 27 H Glucose 176 H D Calculated Osmolality 284 Calcium 8.8 Corrected Calcium 9.5 Phosphorus 3.5 Magnesium 1.6 Total Bilirubin 0.2 L AST 19 ALT 23 Alkaline Phosphatase 65 Total Protein 5.3 L Albumin 3.1 L Globulin 2.2 L Albumin/Globulin Ratio 1.4 ABG Interpretation ABG results: 01/23/25 01/24/25 01/24/25 17:13 05:00 18:55 ABG pH 7.09 L* ABG pCO2 60 H ABG pO2 46 L* ABG HCO3 18 L ABG O2 Saturation 77 L ABG Base Excess -11 L VBG pH 7.22 L 7.25 L VBG pCO2 37 39 VBG pO2 137 H 43 D VBG Base Excess -12 L -10 L 10/24/25 20:50 ABG pH 7.24 L D ABG pCO2 44 D ABG pO2 129 H D ABG HCO3 19 L ABG O2 Saturation 100 H ABG Base Excess -8 L VBG pH VBG pCO2 VBG pO2 VBG Base Excess Quality Measures Quality Measures VTE prophylaxis Advance care planning discussed with:: patient Assessment & Plan Assessment Current Active Medications: Generic Name Dose Route Start Last Admin Trade Name Freq PRN Reason Stop Dose Admin Acetaminophen 650 mg 01/28/25 11:12 01/29/25 20:23 Acetaminophen 325 Mg Tablet PO 02/27/25 11:11 650 mg Q6H PRN Administration PAIN SCALE 1-3 (mild Benzocaine 1 lozenge 02/03/25 10:21 Benzocaine/Menthol 1 Lozenge PO 03/05/25 10:20 Q4HR PRN throat pain Dextrose 25 ml 01/25/25 08:42 Dextrose 50%-Water Inj 50 Ml Syringe IV 02/24/25 08:41 Q15MIN PRN BG 50-70 responsive npo pt Dextrose 50 ml 01/25/25 08:42 01/29/25 08:11 Dextrose 50%-Water Inj 50 Ml Syringe IV 02/24/25 08:41 50 ml Q15MIN PRN Administration BG <50 OR BG <70 & pt unresponsive Folic Acid 1 mg 01/28/25 16:30 02/11/25 08:23 Folic Acid 1 Mg Tablet PO 02/27/25 16:29 1 mg QDAY ELVIA Administration Glucagon 1 mg 01/25/25 08:42 Glucagon Inj 1 Mg Vial IM Q15MIN PRN BG <70, and no IV access Glycerin 1 each 02/10/25 17:33 Glycerin, Adult 1 Ea Supp TN 03/12/25 17:32 QDAY PRN CONSTIPATION Heparin Sodium (Porcine) 5,000 unit 01/26/25 21:00 02/11/25 20:50 Heparin Sod Inj 5000 Unit/Ml Vial SC 02/15/25 14:14 5,000 unit Q12HR ELVIA Administration Protocol Fat Emulsion Intravenous 500 mls @ 32 mls/hr 01/29/25 18:00 02/10/25 17:52 Intralipid 20% Iv IV 02/28/25 17:59 32 mls/hr [id number]@1800 ELVIA Administration Magnesium Sulfate 2 gm/ 2,014 mls @ 30 mls/hr 02/11/25 18:00 02/11/25 17:35 Multivitamins/Minerals 10 ml/ IV 02/12/25 17:59 30 mls/hr Amino Acids QDAY@1800 ELVIA Administration Insulin Degludec 25 unit 02/11/25 09:00 02/11/25 20:50 Insulin Degludec 5 Unit/0.05 Ml (Per 5 Units) SC 03/13/25 08:59 25 unit BID ELVIA Administration Insulin Human Regular 0 unit 02/09/25 17:48 02/12/25 07:27 Insulin Hum Regular 1 Unit/0.01 Ml (Per Unit) SC 03/05/25 14:14 Not Given Q6HR [facility] Protocol Insulin Human Regular 14 unit 02/10/25 18:00 02/12/25 05:37 Insulin Hum Regular 1 Unit/0.01 Ml (Per Unit) AR 03/12/25 17:59 14 unit Q6HR ELVIA Administration Labetalol HCl 10 mg 01/26/25 11:53 Labetalol Inj 5 Mg/Ml Vial 20 Ml IVP 02/25/25 11:52 Q3HR PRN Systolic >180 and HR >75 Lisinopril 10 mg 02/10/25 09:00 02/11/25 08:24 Lisinopril 20 Mg Tablet PO 03/12/25 08:59 10 mg QDAY [facility] Administration Metoclopramide HCl 5 mg 02/09/25 15:00 02/12/25 05:37 Metoclopramide Inj 5 Mg/Ml Vial 2 Ml IVP 03/11/25 14:59 5 mg TID ELVIA Administration Protocol Multivitamins/Minerals 15 ml 01/28/25 11:15 02/03/25 08:44 Multivitamin 15 Ml Udc PO 02/27/25 11:14 15 ml On Hold: 02/03/25 16:54 QDAY [facility] Administration Comment: PARENTERAL NUTRTION ACTIVE Ondansetron HCl 4 mg 01/29/25 16:31 02/06/25 17:34 Ondansetron Odt 4 Mg Tabrap PO 02/27/25 11:11 4 mg Q6HR PRN Administration NAUSEA OR VOMITING Protocol Pantoprazole Sodium 40 mg 01/25/25 09:00 02/11/25 20:50 Pantoprazole Inj 40 Mg Vial IVP 02/24/25 08:59 40 mg BID [facility] Administration Polyethylene Glycol 34 gm 02/10/25 09:00 02/11/25 08:25 Polyethylene Glycol 17 Gm Packet PO 03/12/25 08:59 34 gm QDAY [facility] Administration Sennosides 2 tab 02/10/25 10:45 02/11/25 08:23 Senna/Docusate Sod 1 Tab Tablet PO 03/12/25 10:44 2 tab QDAY [facility] Administration Protocol Sucralfate 1 gm 02/04/25 11:30 02/12/25 07:28 Sucralfate Susp 1 Gm/10 Ml Udc PO 03/06/25 11:29 1 gm ACHS [facility] Administration Thiamine HCl 100 mg 01/28/25 16:30 02/11/25 08:25 Thiamine 100 Mg Tablet PO 02/27/25 16:29 100 mg QDAY [facility] Administration Vitamin B Complex/Vit C/Folic Acid 1 tab 01/28/25 16:30 02/11/25 08:25 Vitamin B Complex Tablet PO 02/27/25 16:29 1 tab QDAY [facility] Administration Vitamin D 6,000 iu 01/28/25 16:30 02/11/25 08:22 Cholecalciferol (Vitamin D3) 1,000 Iu Tablet PO 02/27/25 16:29 6,000 iu QDAY [facility] Administration Plan 74-year-old female with medical history significant for insulin-dependent type 2 diabetes, hypertension, hyperlipidemia, and coronary artery disease presenting with hyperosmolar hyperglycemic state (glucose ~1500, Na 170, osmolality 369) complicated by small bowel ischemia requiring emergent exploratory laparotomy for small bowel resection and anastomosis. Patient downgraded from ICU to medical floor on 01/26 for mgx for ongoing issues. #Dysphagia #Failure to thrive #Postop requiring total parenteral nutrition Likely esophageal dysphagia versus oropharyngeal as the patient has symptoms of regurgitation along with nausea and vomiting and no problem initiating swallowing. Patient having dysphagia to both solid and liquids, regurgitates intake even after EGD dilation of an esophageal stricture (02/03). EGD ([id number]) One benign-appearing, circumferential scarring or stenosis was found in the proximal esophagus. Dilation was performed. Many cratered esophageal ulcers oozing blood were found in the middle and lower thirds of the soft. Two biopsies were obtained from the lower third of the esophagus. Diffuse moderate inflammation was found in the entire examined stomach. 2 biopsies were obtained. The second portion of the duodenum was normal. According to Dr Grijalva, Large hiatal hernia 0.8 cm could be causing additional symptoms of dysphagia may need surgical intervention in the future. Plan: - Will taper TPN down as soon as patient consumes at least 65% of the diet provided to her through the central line. Already initiated. - Pur?ed diet ? IV Protonix p.o. 40 mg twice daily ? Reglan IV 5 mg 3 times daily - Benzocaine/menthol lozenge PO Q4h PRN throat pain - GI, Dr Grijalva, consulted, appreciate recs ? Await pathology results ? Patient has an 8 cm hiatal hernia that may need surgical evaluation in the future #Constipation, improving Patient had not had bowel movement since 01/29 for 8days. KUB ordered, showed extensive burden in colon. Patient had multiple large loose stools after ingestion of GoLytely beginning at an infusion rate of 200 mL/h, and later decreasing to 50mL/h when she started vomiting on. Two days after series of BM from Golytely administration, patient developed a medium sized BM on her own, and more feces were removed through administration of warm water enema on 02/11. Plan: - PT and nurse to move the patient to sitting up on the chair 3 times daily and to walks about the hospital floor, to help with BM. - Increase MiraLAX to 34 g daily, milk of mag as needed - Lactulose PO 20g TID - Glycerin suppository - warm water enema #Small Bowel Ischemia S/P small bowel resection and anastomosis The patient is status post exploratory laparotomy with small bowel resection and anastomosis. Post-operative course has been stable thus far. A large portion of ischemic jejunum and ileum was resected 280cm. The remaining jejunum and ileum were successfully anastomosed. CT abdomen (01/28) showed no bowel obstruction, and no evidence of abdominal or pelvic abscess Plan: - cleared by Dr Quinonez for discharge; surgical cornelio removed - Zofran 4 mg IV every 6 hours as needed for nausea. - Peripheral nutrition, sound assistant following, - The patient has multiple risk factors for peripheral artery disease, including coronary artery disease and diabetes. Once clinically stable and post-surgery recovery progresses, an outpatient follow-up with vascular surgery will be necessary for further evaluation, including a CTA to assess for peripheral artery disease. #Insulin-dependent type 2 diabetes #?Gastroparesis Hemoglobin A1c: 13.7. HHS resolved, no longer on insulin drip. Patient on PPN. goal of blood glc 140-180 while hospitalized. Plan: - insulin regular sliding scale step 2 on top of scheduled 14u Q6h - Insulin degludec 25u bid ? Reglan IV 5 mg 3 times daily - Will require need insulin regimen upon D/C #History of coronary artery disease - Currently stable, no intervention required at this time. - Will continue home meds when stable. #Primary hypertension - Resumed home lisinopril 10 mg daily #Normocytic Anemia BUN 37, and CR 0.9, in the light of esophageal ulcers found on the EGD and recent small bowel resection, there is high probability for GI source of bleed. Did require 1 unit of PRBC Transfused 1 unit of pRBCs on 01/15. Plan: ? Posttransfusion H&H has been stable continue to monitor - Monitor CBC - Transfuse if Hgb <7 #Hypercalcemia, resolved #Hyperosmolar hyperglycemic state (resolved) #Shock, likely distributive due to small bowel ischemia (resolved) #Sinus tachycardia (resolved) #Anion gap metabolic acidosis (resolved) #Lactic acidosis (resolved) #Hyperosmolar hypernatremia, resolved #Hyperchloremia, resolved #Acute kidney injury on chronic kidney disease, resolved #Acute blood loss, resolved Health Maintenance: Disposition: Med Tele, We will taper TPN down as soon as patient eats at least 65% of her meals. Awaiting BM on bowel stimulants. DVT prophylaxis: Heparin 5000 subQ. GI prophylaxis: Pantoprazole 40mg IV BID. Diet: Pur?ed CODE STATUS: FULL CODE This case was discussed with my attending physician, Dr. Zambrano, and senior resident, Dr. Benoit. José Ritter, DO PGY I Disclaimer: This note was dictated by speech recognition. Minor errors in consumer educator may be present due to voice recognition software. Attending Provider Attestation/Addendum I have seen and examined the patient. I was physically present for the crowley portions of the services provided including history, physical exam, diagnosis, treatment plans and orders. I agree with assessment and plan of care as documented by residents. Even though this this note was carefully revised there may still be minor errors in consumer educator due to voice recognition software. Andreas Zambrano MD
[2025-02-12] MEDS: FOLIC ACID 1 MG TABLET PO (10:19)
[2025-02-12] MEDS: VITAMIN B COMPLEX TABLET 1 TAB PO (10:19)
[2025-02-12] MEDS: CHOLECALCIFEROL (Vitamin D3) 1,000 IU TABLET 6000 IU PO (10:20)
[2025-02-12] MEDS: LACTULOSE SYRUP 20 GM/30 ML UDC PO ×2 (11:38→14:26)
--- NOTE | 2025-02-12 12:01 | PC.SS ---
SS has spoken to Diana Pacheco from [facility] who is requesting updated inquiry and she will contact patient's health insurance in case previous insurance authorization has . SS has also faxed SNF inquiry to patient's health insurance.
[2025-02-12] MEDS: INSULIN HUM REGULAR 1 UNIT/0.01 ML (PER UNIT) SC ×2 (12:55→17:34)
--- NOTE | 2025-02-12 16:20 | PC.SS ---
SPECIAL DAY CLASS TEACHER informed by patient's daughter, Nely Peraza that discharge plan is for the patient to transition home not to SNF.
[2025-02-12] MEDS: FAT EMULSIONS 20% IV 500 ML 32 ML IV (17:35)
--- NOTE | 2025-02-12 17:46 | PD.IMPROG ---
Documentation for date of: 02/12/25 Subjective Subjective Interval history: Patient evaluating tolerating having bowel movements Tolerating diet Exam Vital Signs Temp Pulse Resp BP Pulse Ox O2 Del Method O2 Flow Rate 97.5 F 106 H 13 145/69 H 98 Room Air 4 02/12/25 16:00 02/12/25 16:00 02/12/25 16:00 02/12/25 16:00 02/12/25 16:00 02/12/25 16:00 02/01/25 14:35 FiO2 30 01/27/25 19:00 Objective Labs 02/12/25 04:42 02/12/25 04:42 Labs: Laboratory Results - last 24 hr 02/12/25 04:42 WBC 7.6 RBC 2.91 L Hgb 8.5 L Hct 26.1 L MCV 90 MCH 29.2 MCHC 32.6 RDW Std Deviation 54.1 H Plt Count 339 D Neut % (Auto) 55 Lymph % (Auto) 29 [place] % (Auto) 11 Eos % (Auto) 2 Baso % (Auto) 1 Neut # (Auto) 4.2 Lymph # (Auto) 2.2 [place] # (Auto) 0.8 Eos # (Auto) 0.2 Baso # (Auto) 0.1 Immature Gran # (Auto) 0.23 H Absolute Nucleated RBC 0.00 Immature Gran % 3 H Nucleated RBC % 0 Sodium 138 Potassium 4.5 Chloride 106 Carbon Dioxide 25.8 Anion Gap 6 L BUN 27 H Creatinine 1.0 Estim Creat Clear Calc 38.4 L eGFR 60 BUN/Creatinine Ratio 27 H Glucose 176 H D Calculated Osmolality 284 Calcium 8.8 Corrected Calcium 9.5 Phosphorus 3.5 Magnesium 1.6 Total Bilirubin 0.2 L AST 19 ALT 23 Alkaline Phosphatase 65 Total Protein 5.3 L Albumin 3.1 L Globulin 2.2 L Albumin/Globulin Ratio 1.4 Impressions Impression: Status post small bowel resection doing well continue current management ABG Interpretation ABG results: 01/23/25 01/24/25 01/24/25 17:13 05:00 18:55 ABG pH 7.09 L* ABG pCO2 60 H ABG pO2 46 L* ABG HCO3 18 L ABG O2 Saturation 77 L ABG Base Excess -11 L VBG pH 7.22 L 7.25 L VBG pCO2 37 39 VBG pO2 137 H 43 D VBG Base Excess -12 L -10 L 01/24/25 20:50 ABG pH 7.24 L D ABG pCO2 44 D ABG pO2 129 H D ABG HCO3 19 L ABG O2 Saturation 100 H ABG Base Excess -8 L VBG pH VBG pCO2 VBG pO2 VBG Base Excess Assessment & Plan Time Spent With Patient Time: Total time spent is greater than 50% in coordination of care (as documented) at patient's floor/unit and/or counseling patient:
[2025-02-13] VITALS (8 sets, daily range): BP systolic 115–136; BP diastolic 53–82; PULSE 85–104; RESP 16–19; TEMP 36.1–36.8; O2SAT 96–98; BMI 23.0
[2025-02-13] MEDS: METOCLOPRAMIDE INJ 5 MG/ML VIAL 2 ML IVP ×3 (05:40→21:18)
[2025-02-13] MEDS: LACTULOSE SYRUP 20 GM/30 ML UDC PO ×2 (05:41→21:20)
[2025-02-13] MEDS: DEXTROSE 50%-WATER INJ 50 ML SYRINGE 25 ML IV ×2 (05:56→17:03)
[2025-02-13 06:57] LABS: Alanine Aminotransferase 23 U/L (10-49); Albumin, Serum 3.4 gm/dL (3.4-4.8); Albumin/Globulin Ratio 1.5 (1.2-2.2); Alkaline Phosphatase 67 U/L (46-116); Anion Gap 11 (7-16); Aspartate Amino Transferase 27 U/L (0-34); BUN/Creatinine Ratio 26 Ratio (12-20); Bilirubin,Total < 0.2 mg/dL (0.3-1.2); Blood Urea Nitrogen 26 mg/dL (9-23); Calcium 9.1 mg/dL (8.3-10.6); Calcium (Corrected) 9.6 mg/dL (8.5-10.1); Carbon Dioxide 24.0 mMol/L (20.0-31.0); Chloride 106 mMol/L (98-107); Creatinine (Component) 1.0 mg/dL (0.6-1.3); Estimated Creatinine Clearance 38.4 mL/min (>60); Globulin 2.2 gm/dL (2.3-3.5); Glucose 70 mg/dL (74-106); Magnesium 1.7 mg/dL (1.6-2.6); Osmolality,Calculated 283 (275-295); Phosphorous 3.2 mg/dL (2.4-5.1); Potassium 4.0 mMol/L (3.4-5.1); Sodium 141 mMol/L (136-145); Total Protein 5.6 gm/dL (5.7-8.2); eGFR 60 See Note
[2025-02-13] MEDS: SUCRALFATE SUSP 1 GM/10 ML UDC PO ×3 (07:29→20:32)
[2025-02-13 07:47] LABS: Basophils # (Auto) 0.1 Thou/mm3 (0.0-0.2); Basophils % (Auto) 1 % (0-2.5); Eosinophils # (Auto) 0.2 Thou/mm3 (0.0-0.5); Eosinophils % (Auto) 3 % (0-10); Hematocrit 27.1 % (36.0-46.0); Hemoglobin 9.0 g/dL (12.0-16.0); Immature Granulocytes Auto 0.24 Thou/mm3 (0.00-0.00); Lymphocytes # (Auto) 2.6 Thou/mm3 (1.0-4.8); Lymphocytes % (Auto) 33 % (10-50); Mean Corpuscular HGB Conc 33.2 g/dl (31.0-37.0); Mean Corpuscular Hemoglobin 30.3 pg (25.0-35.0); Mean Corpuscular Volume 91 fL (80-100); Monocytes # (Auto) 0.8 Thou/mm3 (0.0-0.8); Monocytes % (Auto) 10 % (0-12); Neutrophils # (Auto) 3.9 Thou/mm3 (1.8-7.7); Neutrophils % (Auto) 50 % (37-80); Nucleated Red Blood Cell # 0.00 Thou/mm3 (0.00-0.00); Nucleated Red Blood Cell % 0 /100 WBC (0); Platelet Count 336 Thou/mm3 (140-440); RDW Standard Deviation 53.4 fL (36.4-46.3); Red Blood Count 2.97 Miln/mm3 (4.00-5.20); White Blood Count 7.8 Thou/mm3 (3.6-11.0)
[2025-02-13] MEDS: FOLIC ACID 1 MG TABLET PO (09:52)
[2025-02-13] MEDS: CHOLECALCIFEROL (Vitamin D3) 1,000 IU TABLET 6000 IU PO (09:53)
[2025-02-13] MEDS: INSULIN DEGLUDEC 5 UNIT/0.05 ML (PER 5 UNITS) 25 UNIT SC (09:54)
[2025-02-13] MEDS: HEPARIN SOD INJ 5000 UNIT/ML VIAL SC ×2 (10:00→20:32)
[2025-02-13] MEDS: VITAMIN B COMPLEX TABLET 1 TAB PO (10:02)
[2025-02-13] MEDS: THIAMINE 100 MG TABLET PO (10:02)
[2025-02-13] MEDS: INSULIN HUM REGULAR 1 UNIT/0.01 ML (PER UNIT) 14 UNIT SC (12:00)
[2025-02-13] MEDS: INSULIN HUM REGULAR 1 UNIT/0.01 ML (PER UNIT) SC (12:01)
--- NOTE | 2025-02-13 13:46 | PC.SS ---
Addendum entered by Abbi Talamantes 02/13/25 14:51: SS met with dtr, Yany Peraza, phone# [phone] at bedside who explained pt will be d/c to her home address: [address] [place] [address] Dr. Noriega. Original Note: SS met with pt and dtrNely to follow up with d/c to SNF. DtrNely is now requesting for pt to return home and refuses pt to d/c to SNF. SS has called Diana Pacheco from [facility] to cancel insurance authorization due to pt returning home upon dc. Dtr explained if HH is not an option then pt can follow up with Out Patient PT. Dtr is requesting a wheelchair and is aware DME is not guaranteed. PCP: Jamie Lares from [facility] in [place].
--- NOTE | 2025-02-13 15:15 | PC.SS ---
SS has sent DME order for wheelchair using [employer]. Pt and dtrs are aware DME is not guaranteed and will require insurance authorization.
--- NOTE | 2025-02-13 15:42 | ESPR_ITS ---
Documentation for date of: 02/13/25 Subjective Subjective Interval history: Patient evaluated no nausea vomiting No diarrhea Exam Vital Signs Temp Pulse Resp BP Pulse Ox O2 Del Method O2 Flow Rate 97.9 F 96 18 115/57 L 96 Room Air 4 02/13/25 12:00 02/13/25 12:00 02/13/25 12:00 02/13/25 12:00 02/13/25 12:00 02/13/25 12:00 02/13/25 04:00 FiO2 30 02/13/25 04:00 Objective Labs 02/13/25 05:35 02/13/25 05:35 Labs: Laboratory Results - last 24 hr 02/13/25 05:35 WBC 7.8 RBC 2.97 L Hgb 9.0 L Hct 27.1 L MCV 91 MCH 30.3 MCHC 33.2 RDW Std Deviation 53.4 H Plt Count 336 Neut % (Auto) 50 Lymph % (Auto) 33 [place] % (Auto) 10 Eos % (Auto) 3 Baso % (Auto) 1 Neut # (Auto) 3.9 Lymph # (Auto) 2.6 [place] # (Auto) 0.8 Eos # (Auto) 0.2 Baso # (Auto) 0.1 Immature Gran # (Auto) 0.24 H Absolute Nucleated RBC 0.00 Immature Gran % 3 H Nucleated RBC % 0 Sodium 141 Potassium 4.0 D Chloride 106 Carbon Dioxide 24.0 Anion Gap 11 BUN 26 H Creatinine 1.0 Estim Creat Clear Calc 38.4 L eGFR 60 BUN/Creatinine Ratio 26 H Glucose 70 L D Calculated Osmolality 283 Calcium 9.1 Corrected Calcium 9.6 Phosphorus 3.2 Magnesium 1.7 Total Bilirubin < 0.2 L AST 27 ALT 23 Alkaline Phosphatase 67 Total Protein 5.6 L Albumin 3.4 Globulin 2.2 L Albumin/Globulin Ratio 1.5 Impressions Impression: Status post section of the small bowel with primary anastomosis doing well postoperatively ABG Interpretation ABG results: 01/23/25 01/24/25 01/24/25 17:13 05:00 18:55 ABG pH 7.09 L* ABG pCO2 60 H ABG pO2 46 L* ABG HCO3 18 L ABG O2 Saturation 77 L ABG Base Excess -11 L VBG pH 7.22 L 7.25 L VBG pCO2 37 39 VBG pO2 137 H 43 D VBG Base Excess -12 L -10 L 01/24/25 20:50 ABG pH 7.24 L D ABG pCO2 44 D ABG pO2 129 H D ABG HCO3 19 L ABG O2 Saturation 100 H ABG Base Excess -8 L VBG pH VBG pCO2 VBG pO2 VBG Base Excess Assessment & Plan Time Spent With Patient Time: Total time spent is greater than 50% in coordination of care (as documented) at patient's floor/unit and/or counseling patient:
--- NOTE | 2025-02-13 17:05 | PD.EVENT ---
Documentation for date of: 02/13/25 Event Note Event Note: Right IJ Central removed and sterile dressing was placed, patient tolrated well, no complication afterwards. Central line was intact.
--- NOTE | 2025-02-13 17:16 | PC.NURSE ---
Rechecked blood sugar 170
--- NOTE | 2025-02-13 18:42 | ESPR_ITS ---
<Statement entered by Abdulkadir Medina MD - 02/14/25 15:16> Patient seen and examined at bedside. I discussed and supervised with the technical support intern physician who took care of this patient. I personally saw and examined the patient. I agree with most of the assessment and plan. Plan of care discussed with attending Dr. Kenya Medina MD PGY-2 Documentation for date of: 02/13/25 Subjective Subjective Interval history: Patient was seen and examined at bedside. No acute events took place overnight. Patient had several copious brown-yellow BM yesterday. Patient reports no fevers, chills, abdominal or chest pain. Patient has a good appetite and eats well carb consistent diet provided, more than 50% consumed without nausea, vomiting or regurgitation. Physical therapy takes the patient on walks about hospital floor daily and the nurse takes the patient up to chair 3 times daily. TPN discontinued. Satting well on RA. Exam Vital Signs Temp Pulse Resp BP Pulse Ox O2 Del Method O2 Flow Rate 98.2 F 95 16 117/53 L 97 Room Air 4 02/13/25 16:00 02/13/25 16:00 02/13/25 16:00 02/13/25 16:00 02/13/25 16:00 02/13/25 16:00 02/13/25 04:00 FiO2 30 02/13/25 04:00 Narrative Exam General: Elderly, frail, awake and alert. Head: Normocephalic, atraumatic. Eyes: Pupils equally round and reactive to light. Anicteric. Blind in left eye. Heart: Regular rate and rhythm, no murmurs. No JVD. Peripheral pulses 2+ and symmetric in all extremities. Lungs: Clear to auscultation bilaterally. Non-labored respirations, symmetric chest rise, no use of accessory muscles. Abdomen: Wound dressing is clear, dry, and intact. Abdominal distention, normotensive bowel sounds, percussion tympanic, no tenderness to palpation. Neurologic: No gross neurological deficit, and patient able to move all 4 extremities. Extremities: No clubbing, cyanosis, or edema. Capillary refill <2 seconds. Skin warm to touch, no mottling. B/L UE pitting edema +2, likely 2/2 IV infiltration Skin: No rashes, lesions, or ulcers. Psychiatric: Cooperative, appropriate mood and affect Objective Labs 02/15/25 04:50 02/15/25 04:50 Labs: Laboratory Results - last 24 hr 02/13/25 05:35 WBC 7.8 RBC 2.97 L Hgb 9.0 L Hct 27.1 L MCV 91 MCH 30.3 MCHC 33.2 RDW Std Deviation 53.4 H Plt Count 336 Neut % (Auto) 50 Lymph % (Auto) 33 Pacific % (Auto) 10 Eos % (Auto) 3 Baso % (Auto) 1 Neut # (Auto) 3.9 Lymph # (Auto) 2.6 [place] # (Auto) 0.8 Eos # (Auto) 0.2 Baso # (Auto) 0.1 Immature Gran # (Auto) 0.24 H Absolute Nucleated RBC 0.00 Immature Gran % 3 H Nucleated RBC % 0 Sodium 141 Potassium 4.0 D Chloride 106 Carbon Dioxide 24.0 Anion Gap 11 BUN 26 H Creatinine 1.0 Estim Creat Clear Calc 38.4 L eGFR 60 BUN/Creatinine Ratio 26 H Glucose 70 L D Calculated Osmolality 283 Calcium 9.1 Corrected Calcium 9.6 Phosphorus 3.2 Magnesium 1.7 Total Bilirubin < 0.2 L AST 27 ALT 23 Alkaline Phosphatase 67 Total Protein 5.6 L Albumin 3.4 Globulin 2.2 L Albumin/Globulin Ratio 1.5 ABG Interpretation ABG results: 01/23/25 01/24/25 01/24/25 17:13 05:00 18:55 ABG pH 7.09 L* ABG pCO2 60 H ABG pO2 46 L* ABG HCO3 18 L ABG O2 Saturation 77 L ABG Base Excess -11 L VBG pH 7.22 L 7.25 L VBG pCO2 37 39 VBG pO2 137 H 43 D VBG Base Excess -12 L -10 L 01/24/25 20:50 ABG pH 7.24 L D ABG pCO2 44 D ABG pO2 129 H D ABG HCO3 19 L ABG O2 Saturation 100 H ABG Base Excess -8 L VBG pH VBG pCO2 VBG pO2 VBG Base Excess Quality Measures Quality Measures VTE prophylaxis Advance care planning discussed with:: patient Assessment & Plan Assessment Current Active Medications: Generic Name Dose Route Start Last Admin Trade Name Freq PRN Reason Stop Dose Admin Acetaminophen 650 mg 01/28/25 11:12 01/29/25 20:23 Acetaminophen 325 Mg Tablet PO 02/27/25 11:11 650 mg Q6H PRN Administration PAIN SCALE 1-3 (mild Benzocaine 1 lozenge 02/03/25 10:21 Benzocaine/Menthol 1 Lozenge PO 03/05/25 10:20 Q4HR PRN throat pain Dextrose 25 ml 01/25/25 08:42 02/13/25 17:03 Dextrose 50%-Water Inj 50 Ml Syringe IV 02/24/25 08:41 25 ml Q15MIN PRN Administration BG 50-70 responsive npo pt Dextrose 50 ml 01/25/25 08:42 01/29/25 08:11 Dextrose 50%-Water Inj 50 Ml Syringe IV 02/24/25 08:41 50 ml Q15MIN PRN Administration BG <50 OR BG <70 & pt unresponsive Folic Acid 1 mg 01/28/25 16:30 02/13/25 09:52 Folic Acid 1 Mg Tablet PO 02/27/25 16:29 1 mg QDAY [facility]VIA Administration Glucagon 1 mg 01/25/25 08:42 Glucagon Inj 1 Mg Vial IM Q15MIN PRN BG <70, and no IV access Glycerin 1 each 02/10/25 17:33 Glycerin, Adult 1 Ea Supp TN 03/12/25 17:32 QDAY PRN CONSTIPATION Heparin Sodium (Porcine) 5,000 unit 01/26/25 21:00 02/13/25 10:00 Heparin Sod Inj 5000 Unit/Ml Vial SC 02/15/25 14:14 5,000 unit Q12HR [facility] Administration Protocol Insulin Degludec 40 unit 02/14/25 09:00 Insulin Degludec 5 Unit/0.05 Ml (Per 5 Units) OK 03/16/25 08:59 QDAY [facility] Insulin Human Regular 0 unit 02/13/25 11:30 02/13/25 17:11 Insulin Hum Regular 1 Unit/0.01 Ml (Per Unit) OK 03/14/25 10:26 Not Given [facility] Protocol Insulin Human Regular 7 unit 02/14/25 07:30 Insulin Hum Regular 1 Unit/0.01 Ml (Per Unit) OK 03/16/25 07:29 AC [facility] Lactulose 20 gm 02/12/25 10:30 02/13/25 13:36 Lactulose Syrup 20 Gm/30 Ml Udc PO 03/14/25 10:29 Not Given TID [facility] Protocol Lisinopril 10 mg 02/10/25 09:00 02/13/25 10:02 Lisinopril 20 Mg Tablet PO 03/12/25 08:59 10 mg QDAY [facility] Administration Metoclopramide HCl 5 mg 02/09/25 15:00 02/13/25 13:36 Metoclopramide Inj 5 Mg/Ml Vial 2 Ml IVP 03/11/25 14:59 5 mg TID [facility] Administration Protocol Multivitamins/Minerals 15 ml 02/14/25 12:15 Multivitamin 15 Ml Udc PO 02/27/25 11:14 QDAY [facility] Ondansetron HCl 4 mg 01/29/25 16:31 02/06/25 17:34 Ondansetron Odt 4 Mg Tabrap PO 02/27/25 11:11 4 mg Q6HR PRN Administration NAUSEA OR VOMITING Protocol Pantoprazole Sodium 40 mg 01/25/25 09:00 02/13/25 10:35 Pantoprazole Inj 40 Mg Vial IVP 02/24/25 08:59 40 mg BID [facility] Administration Polyethylene Glycol 34 gm 02/10/25 09:00 02/13/25 10:04 Polyethylene Glycol 17 Gm Packet PO 03/12/25 08:59 Not Given QDAY [facility] Sennosides 2 tab 02/10/25 10:45 02/13/25 10:04 Senna/Docusate Sod 1 Tab Tablet PO 03/12/25 10:44 Not Given QDAY [facility] Protocol Sucralfate 1 gm 02/04/25 11:30 02/13/25 17:58 Sucralfate Susp 1 Gm/10 Ml Udc PO 03/06/25 11:29 Not Given ACHS [facility] Thiamine HCl 100 mg 01/28/25 16:30 02/13/25 10:02 Thiamine 100 Mg Tablet PO 02/27/25 16:29 100 mg QDAY [facility] Administration Vitamin B Complex/Vit C/Folic Acid 1 tab 01/28/25 16:30 02/13/25 10:02 Vitamin B Complex Tablet PO 02/27/25 16:29 1 tab QDAY [facility] Administration Vitamin D 6,000 iu 01/28/25 16:30 02/13/25 09:53 Cholecalciferol (Vitamin D3) 1,000 Iu Tablet PO 02/27/25 16:29 6,000 iu QDAY [facility] Administration Plan 74-year-old female with medical history significant for insulin-dependent type 2 diabetes, hypertension, hyperlipidemia, and coronary artery disease presenting with hyperosmolar hyperglycemic state (glucose ~1500, Na 170, osmolality 369) complicated by small bowel ischemia requiring emergent exploratory laparotomy for small bowel resection and anastomosis. Patient downgraded from ICU to medical floor on 01/26 for mgx for ongoing issues. #Insulin-dependent type 2 diabetes #Gastroparesis, hx of Hemoglobin A1c: 13.7. HHS resolved, no longer on insulin drip. Patient on PPN. goal of blood glc 140-180 while hospitalized. Plan: - insulin regular sliding scale step 1 on top of scheduled 7u AC (reduced from 14u Q6h while on TPN) - Insulin degludec 40u Qday (reduced from 25u bid) ? Reglan IV 5 mg 3 times daily - Will require need insulin regimen upon D/C #Dysphagia #Failure to thrive #Postop requiring total parenteral nutrition Likely esophageal dysphagia versus oropharyngeal as the patient has symptoms of regurgitation along with nausea and vomiting and no problem initiating swallowing. Patient having dysphagia to both solid and liquids, regurgitates intake even after EGD dilation of an esophageal stricture (02/03). EGD ([id number]) One benign-appearing, circumferential scarring or stenosis was found in the proximal esophagus. Dilation was performed. Many cratered esophageal ulcers oozing blood were found in the middle and lower thirds of the soft. Two biopsies were obtained from the lower third of the esophagus. Diffuse moderate inflammation was found in the entire examined stomach. 2 biopsies were obtained. The second portion of the duodenum was normal. According to Dr Grijalva, Large hiatal hernia 0.8 cm could be causing additional symptoms of dysphagia may need surgical intervention in the future. Plan: - Discontinued TPN - Carb consistent diet ? IV Protonix p.o. 40 mg twice daily ? Reglan IV 5 mg 3 times daily - Benzocaine/menthol lozenge PO Q4h PRN throat pain - GI, Dr Grijalva, consulted, appreciate recs ? Await pathology results ? Patient has an 8 cm hiatal hernia that may need surgical evaluation in the future #Constipation, improving Patient had not had bowel movement since 01/29 for 8days. KUB ordered, showed extensive burden in colon. Patient had multiple large loose stools after ingestion of GoLytely beginning at an infusion rate of 200 mL/h, and later decreasing to 50mL/h when she started vomiting on. Two days after series of BM from Golytely administration, patient developed a medium sized BM on her own, and more feces were removed through administration of warm water enema on 02/11. Plan: - PT and nurse to move the patient to sitting up on the chair 3 times daily and to walks about the hospital floor, to help with BM. - Increase MiraLAX to 34 g daily, milk of mag as needed - Lactulose PO 20g TID - Glycerin suppository - warm water enema #Small Bowel Ischemia S/P small bowel resection and anastomosis The patient is status post exploratory laparotomy with small bowel resection and anastomosis. Post-operative course has been stable thus far. A large portion of ischemic jejunum and ileum was resected 280cm. The remaining jejunum and ileum were successfully anastomosed. CT abdomen (01/28) showed no bowel obstruction, and no evidence of abdominal or pelvic abscess Plan: - cleared by Dr Quinonez for discharge; surgical cornelio removed - Zofran 4 mg IV every 6 hours as needed for nausea. - Peripheral nutrition, solderer electronic following, - The patient has multiple risk factors for peripheral artery disease, including coronary artery disease and diabetes. Once clinically stable and post-surgery recovery progresses, an outpatient follow-up with vascular surgery will be necessary for further evaluation, including a CTA to assess for peripheral artery disease. #History of coronary artery disease - Currently stable, no intervention required at this time. - Will continue home meds when stable. #Primary hypertension - Resumed home lisinopril 10 mg daily #Normocytic Anemia BUN 37, and CR 0.9, in the light of esophageal ulcers found on the EGD and recent small bowel resection, there is high probability for GI source of bleed. Did require 1 unit of PRBC Transfused 1 unit of pRBCs on 01/15. Plan: ? Posttransfusion H&H has been stable continue to monitor - Monitor CBC - Transfuse if Hgb <7 #Hypercalcemia, resolved #Hyperosmolar hyperglycemic state (resolved) #Shock, likely distributive due to small bowel ischemia (resolved) #Sinus tachycardia (resolved) #Anion gap metabolic acidosis (resolved) #Lactic acidosis (resolved) #Hyperosmolar hypernatremia, resolved #Hyperchloremia, resolved #Acute kidney injury on chronic kidney disease, resolved #Acute blood loss, resolved Health Maintenance: Disposition: Med Tele, We will taper TPN down as soon as patient eats at least 65% of her meals. Awaiting BM on bowel stimulants. DVT prophylaxis: Heparin 5000 subQ. GI prophylaxis: Pantoprazole 40mg IV BID. Diet: carb consistent CODE STATUS: FULL CODE This case was discussed with my attending physician, Dr. Zambrano, and senior resident, Dr. Benoit. José Ritter, DO PGY I Disclaimer: This note was dictated by speech recognition. Minor errors in book critic may be present due to voice recognition software. Attending Provider Attestation/Addendum I have seen and examined the patient. I was physically present for the crowley portions of the services provided including history, physical exam, diagnosis, treatment plans and orders. I agree with assessment and plan of care as documented by residents. Even though this this note was carefully revised there may still be minor errors in book critic due to voice recognition software. Andreas Zambrano MD
--- NOTE | 2025-02-13 19:16 | PC.NURSE ---
Addendum entered by RISHABH ALLISON RN 02/13/25 19:22: Dr. Zambrano stated We removed it already when asked about discontinued triple lumen due to discharge orders. Pt was not discharged today due to hypoglycemia in which I notifed Dr. Lynne. blood sugar was 33 and 36, iv dextrose given with orange juice. Pt remained alert and oriented. blood sugar rechecked 15 minutes later went up to 170. Pt then started to eat dinner. Original Note: Spoke to Dr. Zambrano in regards to patients triple lumen to the neck. It was discontinued and removed by Dr. Martinez. ---JA
[2025-02-14] VITALS (9 sets, daily range): BP systolic 124–141; BP diastolic 56–71; PULSE 89–106; RESP 16–19; TEMP 36.1–37.2; O2SAT 96–98; BMI 23.0
[2025-02-14] MEDS: METOCLOPRAMIDE INJ 5 MG/ML VIAL 2 ML IVP ×3 (05:05→21:24)
[2025-02-14] MEDS: LACTULOSE SYRUP 20 GM/30 ML UDC PO ×3 (05:06→21:24)
[2025-02-14 06:26] LABS: Basophils # (Auto) 0.1 Thou/mm3 (0.0-0.2); Basophils % (Auto) 1 % (0-2.5); Eosinophils # (Auto) 0.2 Thou/mm3 (0.0-0.5); Eosinophils % (Auto) 2 % (0-10); Hematocrit 27.5 % (36.0-46.0); Hemoglobin 8.9 g/dL (12.0-16.0); Immature Granulocytes Auto 0.21 Thou/mm3 (0.00-0.00); Lymphocytes # (Auto) 2.8 Thou/mm3 (1.0-4.8); Lymphocytes % (Auto) 38 % (10-50); Mean Corpuscular HGB Conc 32.4 g/dl (31.0-37.0); Mean Corpuscular Hemoglobin 29.6 pg (25.0-35.0); Mean Corpuscular Volume 91 fL (80-100); Monocytes # (Auto) 0.8 Thou/mm3 (0.0-0.8); Monocytes % (Auto) 11 % (0-12); Neutrophils # (Auto) 3.4 Thou/mm3 (1.8-7.7); Neutrophils % (Auto) 46 % (37-80); Nucleated Red Blood Cell # 0.00 Thou/mm3 (0.00-0.00); Nucleated Red Blood Cell % 0 /100 WBC (0); Platelet Count 298 Thou/mm3 (140-440); RDW Standard Deviation 56.6 fL (36.4-46.3); Red Blood Count 3.01 Miln/mm3 (4.00-5.20); White Blood Count 7.5 Thou/mm3 (3.6-11.0)
[2025-02-14 06:46] LABS: Alanine Aminotransferase 27 U/L (10-49); Albumin, Serum 3.2 gm/dL (3.4-4.8); Albumin/Globulin Ratio 1.3 (1.2-2.2); Alkaline Phosphatase 67 U/L (46-116); Aspartate Amino Transferase 25 U/L (0-34); BUN/Creatinine Ratio 21 Ratio (12-20); Bilirubin,Total 0.2 mg/dL (0.3-1.2); Blood Urea Nitrogen 23 mg/dL (9-23); Calcium 8.9 mg/dL (8.3-10.6); Calcium (Corrected) 9.5 mg/dL (8.5-10.1); Chloride 107 mMol/L (98-107); Creatinine (Component) 1.1 mg/dL (0.6-1.3); Estimated Creatinine Clearance 34.9 mL/min (>60); Globulin 2.4 gm/dL (2.3-3.5); Glucose 52 mg/dL (74-106); Magnesium 1.6 mg/dL (1.6-2.6); Osmolality,Calculated 285 (275-295); Phosphorous 4.5 mg/dL (2.4-5.1); Potassium 4.4 mMol/L (3.4-5.1); Sodium 143 mMol/L (136-145); Total Protein 5.6 gm/dL (5.7-8.2); eGFR 53 See Note
[2025-02-14 07:00] LABS: Anion Gap 11 (7-16); Carbon Dioxide 24.9 mMol/L (20.0-31.0)
[2025-02-14] MEDS: SUCRALFATE SUSP 1 GM/10 ML UDC PO ×4 (07:47→21:24)
--- NOTE | 2025-02-14 07:49 | PC.NURSE ---
Notified Dr. Medina pt has blood glucose of 62 this am, per MD hold fast acting insulin and degludec this am
[2025-02-14] MEDS: SENNA/DOCUSATE SOD 1 TAB TABLET 2 TAB PO (09:00)
[2025-02-14] MEDS: VITAMIN B COMPLEX TABLET 1 TAB PO (09:02)
[2025-02-14] MEDS: THIAMINE 100 MG TABLET PO (09:03)
--- NOTE | 2025-02-14 09:06 | PCS.ST ---
Follow up note: Glucose decreased to 36. Control glucose. Pt will return home upon dc with .
[2025-02-14] MEDS: FOLIC ACID 1 MG TABLET PO (09:08)
[2025-02-14] MEDS: CHOLECALCIFEROL (Vitamin D3) 1,000 IU TABLET 6000 IU PO (09:08)
--- NOTE | 2025-02-14 09:48 | PC.SS ---
SS has faxed DME order for wheelchair to [employer] [place].
--- NOTE | 2025-02-14 09:55 | PC.NURSE ---
Called MD Medina to verify if heparin should be given due to no coag recent labs done, per md son to give
[2025-02-14] MEDS: HEPARIN SOD INJ 5000 UNIT/ML VIAL SC ×2 (09:56→21:24)
[2025-02-14] MEDS: MULTIVITAMIN 15 ML UDC PO (11:44)
--- NOTE | 2025-02-14 13:40 | PC.SS ---
SS received call from CHACE Yang who provided phone# [phone] ext [phone] who is requesting to speak with family independence case manager. SS has called phone # provided 2X at 12:53 and 1:40 but was only able to leave voicemail with SS contact information.
--- NOTE | 2025-02-14 14:20 | ESPR_ITS ---
<Statement entered by Abdulkadir Medina MD - 02/14/25 18:02> Patient seen and examined at bedside. I discussed and supervised with the internal auditor physician who took care of this patient. I personally saw and examined the patient. I agree with most of the assessment and plan. Patient continues to eat well, have bowel movements, walk with PT. After TPN discontinued, blood glucose levels low despite decreasing insulin levels. Decreased long acting and short acting insulin again, will monitor for response. Anticipate discharge if blood sugar remains stable. Plan of care discussed with attending Dr. Butcher. Abdulkadir Medina MD PGY-2 Documentation for date of: 02/14/25 Subjective Subjective Interval history: Patient was seen and examined at bedside. No acute events took place overnight. Patient had 4 copious brown-yellow loose BM by 4PM yesterday. Patient reports no fevers, chills, abdominal or chest pain. Patient has a good appetite and eats well carb consistent diet provided, more than 50% consumed without nausea, vomiting or regurgitation. Physical therapy takes the patient on walks about hospital floor daily and the nurse takes the patient up to chair 3 times daily. TPN discontinued. Satting well on RA. Patient had 4 years brown/yellow loose bowel movement bedside fingerstick glucose this morning 62, which improved to 104 after juices and sugar supplementation. L Exam Vital Signs Temp Pulse Resp BP Pulse Ox O2 Del Method O2 Flow Rate 98.5 F 92 18 124/57 L 96 Room Air 4 02/14/25 12:00 02/14/25 12:00 02/14/25 12:00 02/14/25 12:00 02/14/25 12:00 02/14/25 12:00 02/14/25 04:00 FiO2 30 02/14/25 04:00 Narrative Exam General: Elderly, frail, awake and alert. Head: Normocephalic, atraumatic. Eyes: Pupils equally round and reactive to light. Anicteric. Blind in left eye. Heart: Regular rate and rhythm, no murmurs. No JVD. Peripheral pulses 2+ and symmetric in all extremities. Lungs: Clear to auscultation bilaterally. Non-labored respirations, symmetric chest rise, no use of accessory muscles. Abdomen: Wound dressing is clear, dry, and intact. Abdominal distention, normotensive bowel sounds, percussion tympanic, no tenderness to palpation. Neurologic: No gross neurological deficit, and patient able to move all 4 extremities. Extremities: No clubbing, cyanosis, or edema. Capillary refill <2 seconds. Skin warm to touch, no mottling. B/L UE pitting edema +2, likely 2/2 IV infiltration Skin: No rashes, lesions, or ulcers. Psychiatric: Cooperative, appropriate mood and affect Objective Labs 02/15/25 04:50 02/15/25 04:50 Labs: Laboratory Results - last 24 hr 02/14/25 04:40 WBC 7.5 RBC 3.01 L Hgb 8.9 L Hct 27.5 L MCV 91 MCH 29.6 MCHC 32.4 RDW Std Deviation 56.6 H Plt Count 298 D Neut % (Auto) 46 Lymph % (Auto) 38 [place] % (Auto) 11 Eos % (Auto) 2 Baso % (Auto) 1 Neut # (Auto) 3.4 Lymph # (Auto) 2.8 [place] # (Auto) 0.8 Eos # (Auto) 0.2 Baso # (Auto) 0.1 Immature Gran # (Auto) 0.21 H Absolute Nucleated RBC 0.00 Immature Gran % 3 H Nucleated RBC % 0 Sodium 143 Potassium 4.4 Chloride 107 Carbon Dioxide 24.9 Anion Gap 11 BUN 23 Creatinine 1.1 Estim Creat Clear Calc 34.9 L eGFR 53 L BUN/Creatinine Ratio 21 H Glucose 52 L Calculated Osmolality 285 Calcium 8.9 Corrected Calcium 9.5 Phosphorus 4.5 Magnesium 1.6 Total Bilirubin 0.2 L AST 25 ALT 27 Alkaline Phosphatase 67 Total Protein 5.6 L Albumin 3.2 L Globulin 2.4 Albumin/Globulin Ratio 1.3 ABG Interpretation ABG results: 01/23/25 01/24/25 01/24/25 17:13 05:00 18:55 ABG pH 7.09 L* ABG pCO2 60 H ABG pO2 46 L* ABG HCO3 18 L ABG O2 Saturation 77 L ABG Base Excess -11 L VBG pH 7.22 L 7.25 L VBG pCO2 37 39 VBG pO2 137 H 43 D VBG Base Excess -12 L -10 L 01/24/25 20:50 ABG pH 7.24 L D ABG pCO2 44 D ABG pO2 129 H D ABG HCO3 19 L ABG O2 Saturation 100 H ABG Base Excess -8 L VBG pH VBG pCO2 VBG pO2 VBG Base Excess Quality Measures Quality Measures VTE prophylaxis Advance care planning discussed with:: patient Assessment & Plan Assessment Current Active Medications: Generic Name Dose Route Start Last Admin Trade Name Sydq PRN Reason Stop Dose Admin Acetaminophen 650 mg 01/28/25 11:12 01/29/25 20:23 Acetaminophen 325 Mg Tablet PO 02/27/25 11:11 650 mg Q6H PRN Administration PAIN SCALE 1-3 (mild Benzocaine 1 lozenge 02/03/25 10:21 Benzocaine/Menthol 1 Lozenge PO 03/05/25 10:20 Q4HR PRN throat pain Dextrose 25 ml 01/25/25 08:42 02/13/25 17:03 Dextrose 50%-Water Inj 50 Ml Syringe IV 02/24/25 08:41 25 ml Q15MIN PRN Administration BG 50-70 responsive npo pt Dextrose 50 ml 01/25/25 08:42 01/29/25 08:11 Dextrose 50%-Water Inj 50 Ml Syringe IV 02/24/25 08:41 50 ml Q15MIN PRN Administration BG <50 OR BG <70 & pt unresponsive Folic Acid 1 mg 01/28/25 16:30 02/14/25 09:08 Folic Acid 1 Mg Tablet PO 02/27/25 16:29 1 mg QDAY ELVIA Administration Glucagon 1 mg 01/25/25 08:42 Glucagon Inj 1 Mg Vial IM Q15MIN PRN BG <70, and no IV access Glycerin 1 each 02/10/25 17:33 Glycerin, Adult 1 Ea Supp [place] 03/12/25 17:32 QDAY PRN CONSTIPATION Heparin Sodium (Porcine) 5,000 unit 01/26/25 21:00 02/14/25 09:56 Heparin Sod Inj 5000 Unit/Ml Vial SC 02/15/25 14:14 5,000 unit Q12HR ELVIA Administration Protocol Insulin Degludec 20 unit 02/14/25 12:00 02/14/25 13:49 Insulin Degludec 5 Unit/0.05 Ml (Per 5 Units) SC 03/16/25 11:59 Not Given QDAY [facility] Insulin Human Regular 0 unit 02/13/25 11:30 02/14/25 11:29 Insulin Hum Regular 1 Unit/0.01 Ml (Per Unit) SC 03/14/25 10:26 Not Given AC ELVIA Protocol Lactulose 20 gm 02/12/25 10:30 02/14/25 05:06 Lactulose Syrup 20 Gm/30 Ml Udc PO 03/14/25 10:29 20 gm TID ELVIA Administration Protocol Lisinopril 10 mg 02/10/25 09:00 02/14/25 09:05 Lisinopril 20 Mg Tablet PO 03/12/25 08:59 10 mg QDAY ELVIA Administration Metoclopramide HCl 5 mg 02/09/25 15:00 02/14/25 05:05 Metoclopramide Inj 5 Mg/Ml Vial 2 Ml IVP 03/11/25 14:59 5 mg TID ELVIA Administration Protocol Multivitamins/Minerals 15 ml 02/14/25 12:15 02/14/25 11:44 Multivitamin 15 Ml Udc PO 02/27/25 11:14 15 ml QDAY ELVIA Administration Ondansetron HCl 4 mg 01/29/25 16:31 02/06/25 17:34 Ondansetron Odt 4 Mg Tabrap PO 02/27/25 11:11 4 mg Q6HR PRN Administration NAUSEA OR VOMITING Protocol Pantoprazole Sodium 40 mg 01/25/25 09:00 02/14/25 09:56 Pantoprazole Inj 40 Mg Vial IVP 02/24/25 08:59 40 mg BID ELVIA Administration Polyethylene Glycol 34 gm 02/10/25 09:00 02/14/25 09:17 Polyethylene Glycol 17 Gm Packet PO 03/12/25 08:59 Not Given QDAY ELVIA Sennosides 2 tab 02/10/25 10:45 02/14/25 09:00 Senna/Docusate Sod 1 Tab Tablet PO 03/12/25 10:44 2 tab QDAY ELVIA Administration Protocol Sucralfate 1 gm 02/04/25 11:30 02/14/25 11:44 Sucralfate Susp 1 Gm/10 Ml Udc PO 03/06/25 11:29 1 gm ACHS ELVIA Administration Thiamine HCl 100 mg 01/28/25 16:30 02/14/25 09:03 Thiamine 100 Mg Tablet PO 02/27/25 16:29 100 mg QDAY ELVIA Administration Vitamin B Complex/Vit C/Folic Acid 1 tab 01/28/25 16:30 02/14/25 09:02 Vitamin B Complex Tablet PO 02/27/25 16:29 1 tab QDAY ELVIA Administration Vitamin D 6,000 iu 01/28/25 16:30 02/14/25 09:08 Cholecalciferol (Vitamin D3) 1,000 Iu Tablet PO 02/27/25 16:29 6,000 iu QDAY ELVIA Administration Plan 74-year-old female with medical history significant for insulin-dependent type 2 diabetes, hypertension, hyperlipidemia, and coronary artery disease presenting with hyperosmolar hyperglycemic state (glucose ~1500, Na 170, osmolality 369) complicated by small bowel ischemia requiring emergent exploratory laparotomy for small bowel resection and anastomosis. Patient downgraded from ICU to medical floor on 01/26 for mgx for ongoing issues. insulin adjusted to insulin regular sliding scale, 14u regular Q6h, and degludec 25u bid. While on TPN taper, it was reduced to 40u degludec once daily, 14u of premeal and post-prandial insulin SS. When TPN had stopped completely, reduced further to 20u degludec daily, eliminated premael doses altogether, while keeping ISS. On two occasions patient became hypoglycemic while on insulin taper, with glc readings 36 and 62, for both of which the primary team was notified immediately and blood sugar levels improved with prompt provision of juice and sweats. Patient having copious soft BM every 1-2 days. #Insulin-dependent type 2 diabetes #Gastroparesis, hx of Hemoglobin A1c: 13.7. HHS resolved, no longer on insulin drip. Patient tapered off TPN. goal of blood glc 140-180 while hospitalized. Plan: - insulin regular sliding scale step 1 - Insulin degludec 20u Qday (reduced from 25u bid) ? Reglan IV 5 mg 3 times daily - Will require need insulin regimen upon D/C - Will provide CGM at discharge. #Dysphagia #Failure to thrive #Postop requiring total parenteral nutrition Likely esophageal dysphagia versus oropharyngeal as the patient has symptoms of regurgitation along with nausea and vomiting and no problem initiating swallowing. Patient having dysphagia to both solid and liquids, regurgitates intake even after EGD dilation of an esophageal stricture (02/03). EGD ([id number]) One benign-appearing, circumferential scarring or stenosis was found in the proximal esophagus. Dilation was performed. Many cratered esophageal ulcers oozing blood were found in the middle and lower thirds of the soft. Two biopsies were obtained from the lower third of the esophagus. Diffuse moderate inflammation was found in the entire examined stomach. 2 biopsies were obtained. The second portion of the duodenum was normal. According to Dr Grijalva, Large hiatal hernia 0.8 cm could be causing additional symptoms of dysphagia may need surgical intervention in the future. Plan: - Discontinued TPN - Carb consistent diet ? IV Protonix p.o. 40 mg twice daily ? Reglan IV 5 mg 3 times daily - Benzocaine/menthol lozenge PO Q4h PRN throat pain - GI, Dr Grijalva, consulted, appreciate recs ? Await pathology results ? Patient has an 8 cm hiatal hernia that may need surgical evaluation in the future #Constipation, improving Patient had not had bowel movement since 01/29 for 8days. KUB ordered, showed extensive burden in colon. Patient had multiple large loose stools after ingestion of GoLytely beginning at an infusion rate of 200 mL/h, and later decreasing to 50mL/h when she started vomiting on. Two days after series of BM from Golytely administration, patient developed a medium sized BM on her own, and more feces were removed through administration of warm water enema on 02/11. Plan: - PT and nurse to move the patient to sitting up on the chair 3 times daily and to walks about the hospital floor, to help with BM. - Increase MiraLAX to 34 g daily, milk of mag as needed - Lactulose PO 20g TID - Glycerin suppository - warm water enema #Small Bowel Ischemia S/P small bowel resection and anastomosis The patient is status post exploratory laparotomy with small bowel resection and anastomosis. Post-operative course has been stable thus far. A large portion of ischemic jejunum and ileum was resected 280cm. The remaining jejunum and ileum were successfully anastomosed. CT abdomen (01/28) showed no bowel obstruction, and no evidence of abdominal or pelvic abscess Plan: - cleared by Dr Quinonez for discharge; surgical cornelio removed - Zofran 4 mg IV every 6 hours as needed for nausea. - Peripheral nutrition, whipped topping finisher following, - The patient has multiple risk factors for peripheral artery disease, including coronary artery disease and diabetes. Once clinically stable and post-surgery recovery progresses, an outpatient follow-up with vascular surgery will be necessary for further evaluation, including a CTA to assess for peripheral artery disease. #History of coronary artery disease - Currently stable, no intervention required at this time. - Will continue home meds when stable. #Primary hypertension - Resumed home lisinopril 10 mg daily #Normocytic Anemia BUN 37, and CR 0.9, in the light of esophageal ulcers found on the EGD and recent small bowel resection, there is high probability for GI source of bleed. Did require 1 unit of PRBC Transfused 1 unit of pRBCs on 01/15. Plan: ? Posttransfusion H&H has been stable continue to monitor - Monitor CBC - Transfuse if Hgb <7 #Hypercalcemia, resolved #Hyperosmolar hyperglycemic state (resolved) #Shock, likely distributive due to small bowel ischemia (resolved) #Sinus tachycardia (resolved) #Anion gap metabolic acidosis (resolved) #Lactic acidosis (resolved) #Hyperosmolar hypernatremia, resolved #Hyperchloremia, resolved #Acute kidney injury on chronic kidney disease, resolved #Acute blood loss, resolved Health Maintenance: Disposition: Med Tele, We will taper TPN down as soon as patient eats at least 65% of her meals. Awaiting BM on bowel stimulants. DVT prophylaxis: Heparin 5000 subQ. GI prophylaxis: Pantoprazole 40mg IV BID. Diet: carb consistent CODE STATUS: FULL CODE This case was discussed with my attending physician, Dr. Butcher, and senior resident, Dr. Medina. José Ritter DO PGY I Disclaimer: This note was dictated by speech recognition. Minor errors in specimen preparation assistant may be present due to voice recognition software. Attending Provider Attestation/Addendum Christel, María Butcher DO, attest that I was physically present for the crowley portions of the service and evaluated the patient with the resident and I reviewed and discussed the case with the resident and agree with the resident's findings and plans of care as documented above Patient seen and eval this a.m. Patient has had low blood sugars since she was taken off TPN. Patient has been tolerating p.o. diet. Daughter at bedside states that the patient has been taking 32 units of long-acting insulin at home in addition to Synjardy. However, due to recent bowel surgery, she has been eating less and thus her sugars have been lower. Will titrate degludec to 20 units and remove Premeal short acting insulin to avoid further episodes of hypoglycemia. Dietitian was at bedside as well. Patient to be provided a freestyle iveth. Per daughter at bedside, patient was diaphoretic when her sugars were low. However, she denies any lightheadedness, nausea, vomiting, shortness of breath. Will continue to monitor blood glucose closely. If patient remains stable, anticipate discharge within the next 24 to 48 hours. Abdomen is mildly distended on exam, but soft and nontender to palpation. Incision appears to be clean dry and intact, no drainage noted. No peripheral edema noted as well.
--- NOTE | 2025-02-14 15:58 | ESPR_ITS ---
Documentation for date of: 02/14/25 Subjective Subjective Interval history: Patient evaluated Tolerating food Passing flatus and having bowel movements Exam Vital Signs Temp Pulse Resp BP Pulse Ox O2 Del Method O2 Flow Rate 98.5 F 92 18 124/57 L 96 Room Air 4 02/14/25 12:00 02/14/25 12:00 02/14/25 12:00 02/14/25 12:00 02/14/25 12:00 02/14/25 12:00 02/14/25 04:00 FiO2 30 02/14/25 04:00 Objective Labs 02/14/25 04:40 02/14/25 04:40 Labs: Laboratory Results - last 24 hr 02/14/25 04:40 WBC 7.5 RBC 3.01 L Hgb 8.9 L Hct 27.5 L MCV 91 MCH 29.6 MCHC 32.4 RDW Std Deviation 56.6 H Plt Count 298 D Neut % (Auto) 46 Lymph % (Auto) 38 [place] % (Auto) 11 Eos % (Auto) 2 Baso % (Auto) 1 Neut # (Auto) 3.4 Lymph # (Auto) 2.8 [place] # (Auto) 0.8 Eos # (Auto) 0.2 Baso # (Auto) 0.1 Immature Gran # (Auto) 0.21 H Absolute Nucleated RBC 0.00 Immature Gran % 3 H Nucleated RBC % 0 Sodium 143 Potassium 4.4 Chloride 107 Carbon Dioxide 24.9 Anion Gap 11 BUN 23 Creatinine 1.1 Estim Creat Clear Calc 34.9 L eGFR 53 L BUN/Creatinine Ratio 21 H Glucose 52 L Calculated Osmolality 285 Calcium 8.9 Corrected Calcium 9.5 Phosphorus 4.5 Magnesium 1.6 Total Bilirubin 0.2 L AST 25 ALT 27 Alkaline Phosphatase 67 Total Protein 5.6 L Albumin 3.2 L Globulin 2.4 Albumin/Globulin Ratio 1.3 Impressions Impression: Status post resection of the small bowel with primary anastomosis Continue current management ABG Interpretation ABG results: 01/23/25 01/24/25 01/24/25 17:13 05:00 18:55 ABG pH 7.09 L* ABG pCO2 60 H ABG pO2 46 L* ABG HCO3 18 L ABG O2 Saturation 77 L ABG Base Excess -11 L VBG pH 7.22 L 7.25 L VBG pCO2 37 39 VBG pO2 137 H 43 D VBG Base Excess -12 L -10 L 01/24/25 20:50 ABG pH 7.24 L D ABG pCO2 44 D ABG pO2 129 H D ABG HCO3 19 L ABG O2 Saturation 100 H ABG Base Excess -8 L VBG pH VBG pCO2 VBG pO2 VBG Base Excess Assessment & Plan Time Spent With Patient Time: Total time spent is greater than 50% in coordination of care (as documented) at patient's floor/unit and/or counseling patient:
--- NOTE | 2025-02-14 15:59 | PC.CC ---
Request from SHEMAR Unger, to follow-up on CGM prescribed in December but never received by patient. Obtained PA for Innotrievestyle Benjamin 3 Plus sensor and Innotrievestyle 3 [place] from 02/14/25 indefinitely. Updated Landon who advised claim approved and they will ready for patient. Landon advised lispro not covered, only aspart. Updated Dr. Butcher.
[2025-02-14] MEDS: INSULIN HUM REGULAR 1 UNIT/0.01 ML (PER UNIT) SC (17:11)
[2025-02-15] VITALS (7 sets, daily range): BP systolic 138–160; BP diastolic 64–69; PULSE 91–99; RESP 16–17; TEMP 36.9; O2SAT 97–98; BMI 23.0
[2025-02-15] MEDS: LACTULOSE SYRUP 20 GM/30 ML UDC PO (05:24)
[2025-02-15] MEDS: METOCLOPRAMIDE INJ 5 MG/ML VIAL 2 ML IVP (05:24)
[2025-02-15 06:29] LABS: Basophils # (Auto) 0.1 Thou/mm3 (0.0-0.2); Basophils % (Auto) 1 % (0-2.5); Eosinophils # (Auto) 0.2 Thou/mm3 (0.0-0.5); Eosinophils % (Auto) 3 % (0-10); Hematocrit 28.2 % (36.0-46.0); Hemoglobin 8.9 g/dL (12.0-16.0); Immature Granulocytes Auto 0.10 Thou/mm3 (0.00-0.00); Lymphocytes # (Auto) 2.2 Thou/mm3 (1.0-4.8); Lymphocytes % (Auto) 32 % (10-50); Mean Corpuscular HGB Conc 31.6 g/dl (31.0-37.0); Mean Corpuscular Hemoglobin 29.0 pg (25.0-35.0); Mean Corpuscular Volume 92 fL (80-100); Monocytes # (Auto) 0.7 Thou/mm3 (0.0-0.8); Monocytes % (Auto) 10 % (0-12); Neutrophils # (Auto) 3.5 Thou/mm3 (1.8-7.7); Neutrophils % (Auto) 52 % (37-80); Nucleated Red Blood Cell # 0.00 Thou/mm3 (0.00-0.00); Nucleated Red Blood Cell % 0 /100 WBC (0); Platelet Count 293 Thou/mm3 (140-440); RDW Standard Deviation 56.2 fL (36.4-46.3); Red Blood Count 3.07 Miln/mm3 (4.00-5.20); White Blood Count 6.8 Thou/mm3 (3.6-11.0)
[2025-02-15 06:31] LABS: Alanine Aminotransferase 24 U/L (10-49); Albumin, Serum 3.4 gm/dL (3.4-4.8); Albumin/Globulin Ratio 1.4 (1.2-2.2); Alkaline Phosphatase 79 U/L (46-116); Anion Gap 11 (7-16); Aspartate Amino Transferase 18 U/L (0-34); BUN/Creatinine Ratio 16 Ratio (12-20); Bilirubin,Total 0.3 mg/dL (0.3-1.2); Blood Urea Nitrogen 18 mg/dL (9-23); Calcium 8.9 mg/dL (8.3-10.6); Calcium (Corrected) 9.4 mg/dL (8.5-10.1); Carbon Dioxide 25.3 mMol/L (20.0-31.0); Chloride 105 mMol/L (98-107); Creatinine (Component) 1.1 mg/dL (0.6-1.3); Estimated Creatinine Clearance 34.9 mL/min (>60); Globulin 2.4 gm/dL (2.3-3.5); Glucose 170 mg/dL (74-106); Magnesium 1.5 mg/dL (1.6-2.6); Osmolality,Calculated 287 (275-295); Phosphorous 3.7 mg/dL (2.4-5.1); Potassium 4.4 mMol/L (3.4-5.1); Sodium 141 mMol/L (136-145); Total Protein 5.8 gm/dL (5.7-8.2); eGFR 53 See Note
[2025-02-15] MEDS: SUCRALFATE SUSP 1 GM/10 ML UDC PO ×2 (08:20→12:28)
[2025-02-15] MEDS: Magnesium Sulfate 2 GM Ivpb 2 GM/50 ML BAG IV (08:40)
[2025-02-15] MEDS: INSULIN DEGLUDEC 5 UNIT/0.05 ML (PER 5 UNITS) 10 UNIT SC (09:09)
[2025-02-15] MEDS: THIAMINE 100 MG TABLET PO (09:10)
[2025-02-15] MEDS: FOLIC ACID 1 MG TABLET PO (09:10)
[2025-02-15] MEDS: VITAMIN B COMPLEX TABLET 1 TAB PO (09:10)
[2025-02-15] MEDS: CHOLECALCIFEROL (Vitamin D3) 1,000 IU TABLET 6000 IU PO (09:10)
[2025-02-15] MEDS: SENNA/DOCUSATE SOD 1 TAB TABLET 2 TAB PO (09:10)
[2025-02-15] MEDS: MULTIVITAMIN 15 ML UDC PO (09:11)
[2025-02-15] MEDS: HEPARIN SOD INJ 5000 UNIT/ML VIAL SC (09:13)
[2025-02-15] MEDS: INSULIN HUM REGULAR 1 UNIT/0.01 ML (PER UNIT) SC (12:28)
--- NOTE | 2025-02-15 16:43 | PC.CC ---
Addendum entered by Keanu Ventura RN 02/15/25 16:51: unbooked [facility] by mistake. Canceled request to [facility]. Resent hh referral back to [facility]. Original Note: HH was sent out yesterday and booked with [facility], however pt has managed Medicare and has to go to [facility] first to accept or decline. Unbooked with [facility] and sent to [facility]. Waiting for [facility]'s response.
--- NOTE | 2025-02-15 20:19 | ESDS_ITS ---
<Statement entered by María Butcher DO - 02/16/25 09:23> I, María Butcher DO, attest that I was physically present for the crowley portions of the service and evaluated the patient with the resident and I reviewed and discussed the case with the resident and agree with the resident's findings and plans of care as documented above <Statement entered by Yuan Benoit MD - 02/16/25 09:17> Patient was seen and examined by me personally. I have reviewed the below documentation by the team resident and agree with its findings. Discharge plan was discussed with the attending, Dr.Karrie David Montero MD Internal Medicine, PGY-2 Planned Discharge Date 02/15/25 DS: Providers Provider Date of admission: 01/23/25 21:13 Primary care physician: Physician No Primary/Family Admitting Provider: Sheree Tanner MD Attending Provider on Admission: Andreas Zambrano MD Consults: 01/23/25 21:16 Referral Registered Dietitian Routine Comment: 01/23/25 21:47 Consult to Nephrology Routine Comment: Consulting Provider: Saud Irving 01/24/25 08:32 Consult to General Surgery Stat Comment: Consulting Provider: Jade Quinonez 01/24/25 09:37 Consult to Gastroenterology Stat Comment: Concern for PUD with GI bleed Consulting Provider: Marilu Grijalva 01/26/25 10:25 Referral Physical Therapy Routine Comment: Physician Instructions: Instructions: Keep abdominal binder on when doing PT 02/02/25 12:14 Referral Speech Therapy Urgent Comment: Attending Provider on DC: María Butcher DO Discharging Provider: María Butcher DO Anticipated date of discharge: 02/16/25 DS: Diagnosis Problem List Completed Was Problem List Reviewed/Reconciled?: Yes Hospital Course Hospital Course Hospital course: Hospital course: Ms. Sanchez is a 74-year-old female with past medical history of insulin-dependent type 2 diabetes mellitus, hypertension, hyperlipidemia and coronary artery disease who presented to [facility] emergency department on 01/24 with a chief complaint of weakness decreased oral intake for the last 2 to 3 days and significant nausea and vomiting. In the ED patient's labs were significant for sodium 171, glucose 1528 calculated osmolality 379, pH 7.22 and patient was admitted to intensive care unit for hyperosmolar hyperglycemic state. Patient's ICU stay was prolonged and worsened by development of worsening abdominal pain and dark brown vomitus, CT scan demonstrated abnormal ischemic small bowel air and fluid distended with air in the wall of small bowel and pneumoperitoneum along with air droplets and mesentery, general surgery was consulted and patient underwent emergent exploratory laparotomy with 280 cm of small bowel resection and jejunal ileal anastomosis performed on January 25, 2025, patient required vasopressor support in the ICU secondary to shock, blood glucose was controlled, hypernatremia was managed with insulin gtt. and IV fluids. Eventually patient was weaned off of vasopressors and was downgraded to medical floor for further management. Patient was noted to have significant dysphagia, speech therapy and gastroenterology were consulted, patient underwent EGD, EGD findings were significant for circumferential stenosis/scarring in proximal esophagus which was dilated, multiple cratered esophageal ulcers with oozing blood in the middle and lower thirds of esophagus and diffuse moderate inflammation of the stomach. Patient was started on partial parenteral nutrition which was eventually switched to total parenteral nutrition due to decreased p.o. intake per dietary recommendations. Patient required high amounts of insulin for management of her diabetes due to PPN/TPN. Post dilatation from EGD, patient had acute drop in hemoglobin which was likely secondary to bleeding esophageal ulcers, patient required multiple transfusions throughout the hospital course. Patient had sign ificant constipation, had NG tube placed and was given GoLytely, started on Reglan for management of gastroparesis. Bowel regimen was adjusted and patient started having regular bowel movements, p.o. intake improved. Patient worked with physical therapy once stable. Further plan is to discharge patient home with home health, patient is medically clear for discharge, responded well to hospital treatment. Discharge recommendations as below. Discharge Diagnoses: #Distributive Shock 2/2 small bowel ischemia (resolved) #Small bowel ischemia, status post small bowel resection and anastomosis #Hyperosmolar hyperglycemic state (resolved) #Hyperosmolar hypernatremia, resolved #Hyperchloremia, resolved #Status post TPN, weaned off #Dysphagia secondary to esophageal stricture status post dilation #Multiple esophageal ulcers #Insulin-dependent type 2 diabetes #Gastroparesis, history of #Constipation, improving #History of coronary artery disease #Normocytic anemia #Hypercalcemia, resolved #Sinus tachycardia (resolved) #Anion gap metabolic acidosis (resolved) #Lactic acidosis (resolved) #Acute kidney injury on chronic kidney disease, resolved # Anemia secondary to acute blood loss, resolved Discharge Instructions: The following medications have been STOPPED: - Glipizide, alendronate, gemfibrozil Januvia has changed dosage to 50 mg daily Your insulin has been changed to the following: - Lantus 10 units subcutaneous once daily - Lispro correctional scale as per instructions: 180-200 mg/dL = 1 unit 201-250 mg/dL = 2 units 251-300 mg/dL = 3 units Greater than 300 mg/dL = 4 units Please follow up outpatient with your primary care doctor. If you do not have a primary doctor, please come to the [facility]: [address], [place] [address] Return to the ED if you develop new or worsening symptoms. This case was discussed with my attending physician, Dr. Butcher, and senior resident, Dr Benoit. José Ritter, DO PGY I Disclaimer: This note was dictated by speech recognition. Minor errors in education counselor may be present due to voice recognition software. Status at Discharge Overall status at discharge: patient is back to baseline Time Spent with Patient Time attestation: Total time spent providing and/or coordinating discharge services:More than 50% of the patient's total hospital stay Time spent: Greater than 30 minutes Home Health Home Health Referral Orders: 02/15/25 14:37 Home Health Referral Routine Reason For Exam: [facility] Home-Bound The patient must either because of illness or injury, need the aid of supportive devices such as crutches, canes, wheelchairs, and walkers; the use of special transportation; or the assistance of another person in order to leave their place of residence; OR have a condition such that leaving his or her home is medically contraindicated. In addition, the patient also meets the following criteria: patient is normally unable to leave the home and leaving home requires considerable taxing effort. Addendum to Home Health Certification Practitioner's Certification: I certify that the patient has been under my care in the hospital and the care of attending physician (see below). We had a [id number] encounter on (see date below). My clinical findings indicate that the patient is home bound per the above criteria and the Home Health Services noted in these orders are medically necessary. The primary reason for the [id number] encounter is related to the fact that the patient requires home health services. Date Certifying Kbcy-no-Irtr Physician Encounter: 01/23/25 Physician's Name who will Assume Oversight for Services: Jamie Lares Physician's Phone No.who will Assume Oversight for Service: BUSINESS SUPPORT PROFESSIONAL - Community Resources: No PT to Evaluate: Yes PT to evaluate and provide a treatmnet plan to increase patient's mobility and strength. Wound Care: No IV Therapy: No RN Safety Evaluation: Yes RN to evaluate and create a plan of care that will produce positive outcomes. Palliative Treatment: No Palliative treatment and evaluate the need for hospice. Home Health Aide - Personal Care: Yes Home Health Aide to assist with any ADL's. Exam Vital Signs Temp Pulse Resp BP Pulse Ox O2 Del Method O2 Flow Rate 98.5 F 98 17 138/64 H 97 Room Air 4 02/15/25 11:41 02/15/25 12:00 02/15/25 11:41 02/15/25 11:41 02/15/25 11:41 02/15/25 11:41 02/14/25 04:00 FiO2 30 02/14/25 04:00 Narrative Exam General: Elderly, frail, awake and alert. Head: Normocephalic, atraumatic. Eyes: Pupils equally round and reactive to light. Anicteric. Blind in left eye. Heart: Regular rate and rhythm, no murmurs. No JVD. Peripheral pulses 2+ and symmetric in all extremities. Lungs: Clear to auscultation bilaterally. Non-labored respirations, symmetric chest rise, no use of accessory muscles. Abdomen: Wound dressing is clear, dry, and intact. Abdominal distention, normotensive bowel sounds, percussion tympanic, no tenderness to palpation. Neurologic: No gross neurological deficit, and patient able to move all 4 extremities. Extremities: No clubbing, cyanosis, or edema. Capillary refill <2 seconds. Skin warm to touch, no mottling. B/L UE pitting edema +2, likely 2/2 IV infiltration Skin: No rashes, lesions, or ulcers. Psychiatric: Cooperative, appropriate mood and affect Discharge Plan Plan Patient Disposition: Home w/HOME HEALTH Patient condition on transfer: Stable Care Plan Goals: Se muhammad suspendido los siguientes medicamentos: - Glipizida, alendronato, gemfibrozilo La dosis de Januvia se godfrey ajustado a 50 mg diarios. Castillo insulina se godfrey cambiado a la siguiente: - Lantus 10 unidades subcut?neas karen vez al d?a - Lispro, escala de correcci?n seg?n las instrucciones: 180-200 mg/dL = 1 unidad 201-250 mg/dL = 2 unidades 251-300 mg/dL = 3 unidades M?s de 300 mg/dL = 4 unidades Por favor, acuda a castillo m?dico de cabecera para karen consulta de seguimiento. Si no tiene m?dico de cabecera, dir?nissa al [facility]: [address], [place] [address] Tel?fono: Regrese al servicio de urgencias si presenta s?ntomas nuevos o si mendy s?ntomas empeoran. The following medications have been STOPPED: - Glipizide, alendronate, gemfibrozil Januvia has changed dosage to 50 mg daily Your insulin has been changed to the following: - Lantus 10 units subcutaneous once daily - Lispro correctional scale as per instructions: 180-200 mg/dL = 1 unit 201-250 mg/dL = 2 units 251-300 mg/dL = 3 units Greater than 300 mg/dL = 4 units Please follow up outpatient with your primary care doctor. If you do not have a primary doctor, please come to the [facility]: [address], [place] [address] Return to the ED if you develop new or worsening symptoms. Prescriptions/Referrals Prescriptions/Med Rec: New Januvia 50 mg tablet 50 mg PO QDAY 30 Days Qty: 30 2RF insulin glargine [Lantus Solostar U-100 Insulin] 100 unit/mL (3 mL) insulin pen 10 unit subcut QAM 30 Days Qty: 3 2RF insulin lispro [Admelog U-100 Insulin lispro] 100 unit/mL solution 1 sliding scale dose subcut USEASDIRECTD 30 Days Qty: 10 2RF Rx Instructions: 180-200 mg/dL = 1 unit 201-250 mg/dL = 2 units 251-300 mg/dL = 3 units Greater than 300 mg/dL = 4 units Continued lisinopril 10 mg tablet 10 mg PO QDAY Patient Comments: TAKE 1 TABLET BY MOUTH ONCE DAILY (DME) lancets Misc See Rx Instructions .Route Qty: 200 0RF Rx Instructions: As directed (DME) FreeStyle Benjamin 3 Plus Sensor Device See Rx Instructions .Route Qty: 1 2RF Rx Instructions: As directed (DME) FreeStyle Benjamin 3 [place] Misc See Rx Instructions .Route Qty: 1 2RF Rx Instructions: As directed (DME) blood-glucose meter Misc See Rx Instructions .Route Qty: 1 1RF Rx Instructions: As directed ondansetron 4 mg tablet,disintegrating 4 mg PO Q12H PRN (Reason: nausea and vomiting) Patient Comments: DISSOLVE 1 TABLET ON THE TONGUE TWICE DAILY NEEDED FOR NAUSEA Synjardy 12.5-500 mg tablet 1 tab PO BID Patient Comments: TAKE 1 TABLET BY MOUTH TWICE DAILY WITH MEALS pioglitazone 30 mg tablet 30 mg PO DAILY Patient Comments: TAKE 1 TABLET BY MOUTH ONCE DAILY metoprolol tartrate 50 mg tablet 50 mg PO Q12H Patient Comments: TAKE 1 TABLET BY MOUTH TWICE DAILY WITH FOOD hydroxyzine pamoate 25 mg capsule 25 mg PO DAILY PRN (Reason: itching) Patient Comments: TAKE 1 TO 2 CAPSULES BY MOUTH ONCE DAILY AT BEDTIME NEEDED Greta-Jack 0.8 mg tablet 1 tab PO QDAY Patient Comments: TAKE 1 TABLET BY MOUTH ONCE DAILY (DME) pen needle, diabetic [Mary 2nd Gen Pen Needle] 32 gauge x 5/32 needle Patient Comments: USE DIRECTED (DME) lancets [OneTouch Delica Plus Lancet] 33 gauge misc Patient Comments: USE DIRECTED simvastatin 20 mg Tablet 20 mg PO QPM Discontinued gemfibrozil 600 mg tablet 600 mg PO BID alendronate 70 mg tablet 70 mg PO QWEEK Patient Comments: TAKE 1 TABLET BY MOUTH ONCE A WEEK 30 MINUTES BEFORE THE FIRST FOOD, BEVERAGE OR MEDICINE OF THE DAY WITH PLAIN WATER insulin glargine 100 unit/mL (3 mL) insulin pen 10 unit subcut QPM 30 Days Qty: 3 3RF (DME) pen needle, diabetic, safety 29 gauge x 1/2 needle See Rx Instructions .Route Qty: 100 1RF Rx Instructions: As directed Januvia 50 mg tablet 50 mg PO QDAY Qty: 30 0RF Januvia 100 mg tablet 100 mg PO DAILY Patient Comments: TAKE 1 TABLET BY MOUTH ONCE DAILY glipizide 5 mg tablet 5 mg PO .qdac Patient Comments: TAKE 1 TABLET BY MOUTH ONCE DAILY 30 MINUTES BEFORE BREAKFAST insulin degludec 100 unit/mL (3 mL) insulin pen 32 unit SUBCUT QPM Patient Comments: INJECT 32 UNITS SUBCUTANEOUSLY ONCE DAILY DIRECTED IN THE EVENING insulin glargine-yfgn 100 unit/mL (3 mL) insulin pen 10 unit SUBCUT QPM Patient Comments: INJECT 10 UNITS SUBCUTANEOUSLY IN THE EVENING metoprolol succinate 50 mg Capsule,Sprinkle,Er 24hr 50 mg PO BID Referrals: No Primary/Family,Physician [Primary Care Provider] Patient/Caregiver Discharge Instructions Other Discharge Activity Instructions:: Se muhammad suspendido los siguientes medicamentos: - Glipizida, alendronato, gemfibrozilo La dosis de Januvia se godfrey ajustado a 50 mg diarios. Castillo insulina se godfrey cambiado a la siguiente: - Lantus 10 unidades subcut?neas karen vez al d?a - Lispro, escala de correcci?n seg?n las instrucciones: 180-200 mg/dL = 1 unidad 201-250 mg/dL = 2 unidades 251-300 mg/dL = 3 unidades M?s de 300 mg/dL = 4 unidades Por favor, acuda a castillo m?dico de cabecera para karen consulta de seguimiento. Si no tiene m?dico de cabecera, dir?nissa al [facility]: [address], [place] [address] Tel?fono: Regrese al servicio de urgencias si presenta s?ntomas nuevos o si mendy s?ntomas empeoran. The following medications have been STOPPED: - Glipizide, alendronate, gemfibrozil Januvia has changed dosage to 50 mg daily Your insulin has been changed to the following: - Lantus 10 units subcutaneous once daily - Lispro correctional scale as per instructions: 180-200 mg/dL = 1 unit 201-250 mg/dL = 2 units 251-300 mg/dL = 3 units Greater than 300 mg/dL = 4 units Please follow up outpatient with your primary care doctor. If you do not have a primary doctor, please come to the [facility]: [address], [place] [address] Return to the ED if you develop new or worsening symptoms. Education Materials: Diabetes- Measuring Glucose at Home Print Language: Bolivian Stand Alone Forms: [employer] Award Info., Patient Portal Info Letter Discharge Order Discharge Orders: Discharge (Routine); Ordered 02/15/25 Ordered By: Abdulkadir Medina Quality Discharge Quality Measures VTE prophylaxis
--- NOTE | 2025-02-16 10:56 | PC.CC ---
Addendum entered by Keanu Ventura RN 02/16/25 12:27: [facility] accepted and booked, SOC 02/18 Original Note: [facility] declined. Sent [facility] ref out, waiting for response
--- NOTE | 2025-02-17 09:46 | PC.CC ---
DC summary sent to [facility]
== END 2025-02-15 13:54 | disposition home health service (06) | DRG 329 ==
LOC: SERX 19:29 → S2SX 23:27 → SERHOLD 01-24 06:07 → S2SX 01-24 10:55 → S2NX 01-26 18:11 → S3SX 01-31 13:07 → S3NX 02-01 12:43 → S3SX 02-03 08:57 → S3NX 02-04 08:15 → S2NX 02-05 21:31 → S3SX 02-13 00:13
PROVIDERS: Radiology Diagnostic Radiology; Specialist; Student in an Organized Health Care Education/Training Program; Surgery; Admitting Provider Student in an Organized Health Care Education/Training Program; Emergency Provider Emergency Medicine; Visit Provider Student in an Organized Health Care Education/Training Program
PROC: 0D1 Gastrointestinal System, Bypass (ICD-10-PCS; CPT 49000; principal; 2025-01-24 14:00)
PROC: (CPT 43239; principal; 2025-02-01 14:15)
DX: K55.019 Acute (reversible) ischemia of small intestine, extent unspecified (principal); E11.10 Type 2 diabetes mellitus with ketoacidosis without coma; J18.9 Pneumonia, unspecified organism; K22.11 Ulcer of esophagus with bleeding; R57.8 Other shock; K63.1 Perforation of intestine (nontraumatic); K29.71 Gastritis, unspecified, with bleeding; E87.0 Hyperosmolality and hypernatremia; D62 Acute posthemorrhagic anemia; N17.9 Acute kidney failure, unspecified; J98.11 Atelectasis; K55.029 Acute infarction of small intestine, extent unspecified; Z91.148 Patient's other noncompliance with medication regimen for other reason; E78.00 Pure hypercholesterolemia, unspecified; I25.10 Atherosclerotic heart disease of native coronary artery without angina pectoris; N18.9 Chronic kidney disease, unspecified; I12.9 Hypertensive chronic kidney disease with stage 1 through stage 4 chronic kidney disease, or unspecified chronic kidney disease; I95.9 Hypotension, unspecified; E83.39 Other disorders of phosphorus metabolism; E87.5 Hyperkalemia; D53.9 Nutritional anemia, unspecified; E11.22 Type 2 diabetes mellitus with diabetic chronic kidney disease; E11.43 Type 2 diabetes mellitus with diabetic autonomic (poly)neuropathy; E11.51 Type 2 diabetes mellitus with diabetic peripheral angiopathy without gangrene; E11.649 Type 2 diabetes mellitus with hypoglycemia without coma; E83.51 Hypocalcemia; E87.8 Other disorders of electrolyte and fluid balance, not elsewhere classified; E88.09 Other disorders of plasma-protein metabolism, not elsewhere classified; E86.0 Dehydration; K22.2 Esophageal obstruction; K31.84 Gastroparesis; K44.9 Diaphragmatic hernia without obstruction or gangrene; R62.7 Adult failure to thrive; Z79.4 Long term (current) use of insulin; K56.41 Fecal impaction; E83.52 Hypercalcemia; R09.02 Hypoxemia; Z87.19 Personal history of other diseases of the digestive system; Z79.84 Long term (current) use of oral hypoglycemic drugs; Z79.899 Other long term (current) drug therapy; Z53.9 Procedure and treatment not carried out, unspecified reason
CPT/HCPCS: 36415; 36600; 70450; 71045; 71260; 74018; 74177; 77001; 80048; 80053; 80061; 80069; 80076; 81001; 82010; 82803; 83036; 83605; 83615; 83690; 83735; 83880; 84100; 84295; 84439; 84443; 84478; 85014; 85018; 85025; 85610; 85730; 86850; 86900; 86901; 86923; 87040; 87081; 87205; 92526; 92610; 93005; 93225; 94640; 94664; 96361; 96374; 96375; 97162; 99285; A4314; A4649; A9270; C1769; C1894; J0131; J0612; J0613; J0694; J1100; J1171; J1200; J1642; J1644; J1815; J2250; J2371; J2405; J2470; J2543; J2598; J2704; J2765; J3010; J3475; J3480; J3490; J7030; J7042; J7050; J7060; J7070; J7120; J7121; J7999; P9016; P9047; Q0162; Q9967; P0947